=== PATIENT | male | born 1970 | race Caucasian/White ===

== ENCOUNTER → 2022-02-01 09:57 | Outpatient (BNVA) | payer OTHER, SELFPAY | PROVIDERS: PCP Nurse Practitioner Family; Referring Provider Physician Assistant; Visit Provider Physician Assistant | DX: Z01.818 Encounter for other preprocedural examination (principal); K21.9 Gastro-esophageal reflux disease without esophagitis; K64.9 Unspecified hemorrhoids | CPT/HCPCS: 99202 ==

== ENCOUNTER 2022-02-15 13:25 | Outpatient (REF) | payer OTHER, SELFPAY ==
[2022-02-15 13:35] LABS: MANUAL DIFF FLAG NO
[2022-02-15 14:47] LABS: Basophils Percent Auto 0.5 % (0-2); Eosinophils Absolute Auto 0.1 X10*3/uL (0.0-0.4); Eosinophils Percent Auto 0.8 % (0-4); Hematocrit 43.4 % (42.0-52.0); Hemoglobin 14.5 g/dl (14.0-18.0); Imm Gran Abs Auto 0.02 X10*3/uL (0.00-0.03); Imm Gran Pct Auto 0.3 % (0.0-0.4); Lymphocytes Absolute Auto 2.1 X10*3/uL (1.2-4.9); Lymphocytes Percent Auto 34.3 % (20-40); Mean Corpuscular HGB Conc 33.4 g/dl (31.0-36.0); Mean Corpuscular Hemoglobin 30.2 pg (27.0-33.0); Mean Corpuscular Volume 90.4 fL (80.0-98.0); Mean Platelet Volume 11.5 fL (9.4-12.4); Monocytes Absolute Auto 0.7 X10*3/uL (0.1-1.2); Monocytes Percent Auto 11.5 % (2-11); Neutrophils Absolute Auto 3.1 x10*3/uL (2.0-8.3); Neutrophils Percent Auto 52.6 % (45-73); Platelet Count 343 X10*3/uL (160-400)
[2022-02-15 15:05] LABS: Alanine Aminotransferase 28 U/L (0-40); Albumin Level 4.6 g/dL (3.5-5.0); Alkaline Phosphatase 83 U/L (39-117); Anion Gap 16 (12-20); Aspartate Amino Transferase 19 U/L (5-37); Bilirubin Total 0.7 mg/dL (0.0-1.0); Blood Urea Nitrogen 15 mg/dL (9-16); Calcium 9.9 mg/dL (8.4-10.2); Carbon Dioxide 25 mmol/L (22-29); Chloride 103 mmol/L (96-108); Cholesterol 284 mg/dL; Estimated Glomerular Filt Rate > 60; Glucose Fasting 115 mg/dL (60-99); HDL Cholesterol 52 mg/dL; LDL Cholesterol Calculated 196 mg/dl; Potassium 4.4 mmol/L (3.3-5.1); Sodium 140 mmol/L (135-145); Total Protein 7.5 g/dL (6.5-8.0); Triglycerides 183 mg/dL
[2022-02-15 15:26] LABS: Prostate Specific Antigen 0.36 ng/mL (<0.05-4.0); TSH reflex Free T4 1.77 uIU/mL (0.32-4.0)
[2022-02-15 15:40] LABS: Folate > 20.0 ng/mL (> or = 4.0); Vitamin B12 225 pg/mL (200-900)
== END 2022-02-15 13:26 | disposition home or self-care (01) ==
LOC: HO.LAB 13:25
PROVIDERS: PCP Nurse Practitioner Family; Visit Provider Nurse Practitioner Family
DX: Z12.5 Encounter for screening for malignant neoplasm of prostate (principal); Z76.89 Persons encountering health services in other specified circumstances
CPT/HCPCS: 36415; 80053; 80061; 82306; 82607; 82746; 84153; 84443; 85025

== ENCOUNTER 2022-05-30 10:03 | Outpatient (REF) | payer OTHER, SELFPAY ==
[2022-05-30 11:14] LABS: Alanine Aminotransferase 36 U/L (0-40); Albumin Level 4.2 g/dL (3.5-5.0); Alkaline Phosphatase 85 U/L (39-117); Anion Gap 12 (12-20); Aspartate Amino Transferase 22 U/L (5-37); Bilirubin Total 0.5 mg/dL (0.0-1.0); Blood Urea Nitrogen 13 mg/dL (9-16); Calcium 9.5 mg/dL (8.4-10.2); Carbon Dioxide 24 mmol/L (22-29); Chloride 106 mmol/L (96-108); Cholesterol 271 mg/dL; Estimated Average Glucose 137 mg/dL; Estimated Glomerular Filt Rate > 60; Glucose Random 149 mg/dL (60-115); HDL Cholesterol 38 mg/dL; Hemoglobin A1c % 6.4 %; LDL Cholesterol Calculated 179 mg/dl; Potassium 4.3 mmol/L (3.3-5.1); Sodium 138 mmol/L (135-145); Total Protein 7.1 g/dL (6.5-8.0); Triglycerides 274 mg/dL
[2022-05-30 11:35] LABS: Vitamin D 25-OH Total 23.8 ng/mL (>30)
== END 2022-05-30 10:04 | disposition home or self-care (01) ==
LOC: HO.LAB 10:03
PROVIDERS: PCP Nurse Practitioner Family; Visit Provider Nurse Practitioner Family
DX: R73.01 Impaired fasting glucose (principal); E78.5 Hyperlipidemia, unspecified; R79.89 Other specified abnormal findings of blood chemistry
CPT/HCPCS: 36415; 80053; 80061; 82306; 83036

== ENCOUNTER 2022-08-03 07:38 | Day surgery (SDC) | payer OTHER, SELFPAY ==
[2022-07-31 14:13] VITALS: BMI 35.7
--- NOTE | 2022-08-02 13:42 | HO.ANESPROP2 ---
Documented by User: Becca Dela Cruz NP 08/02/22 13:43 HPI - Anesthesia Eval Consult details Narrative: 52yo M for Upper Endoscopy and Colonoscopy PMF Active Problems Active Problems: All Active Problems (Updated 07/31/22 @ 14:09 by Sary Reyes RN) ADHD (Acute) PTSD (post-traumatic stress disorder) (Acute) Bipolar disorder (Acute) Anxiety (Acute) Panic attacks (Acute) Seasonal allergies (Acute) GERD (gastroesophageal reflux disease) (Acute) Screening for colon cancer (Acute) Screening for prostate cancer (Acute) Depression (Acute) Hemorrhoids (Acute) Hyperlipidemia (Acute) Low vitamin D level (Acute) Adult general medical exam (Acute) Obesity (BMI 30-39.9) (Acute) Hypertension (Acute) Pre-diabetes (Acute) Past Medical History Medical History ADHD Anxiety Bipolar disorder Depression Elevated blood pressure reading Elevated cholesterol Elevated fasting glucose Encounter to establish care GERD (gastroesophageal reflux disease) HTN (hypertension) Panic attacks Post traumatic stress disorder (PTSD) Pre-diabetes Family History Family History Mother Diabetes Father Medical history unknown Surgical History Surgical History H/O abdominal surgery H/O splenectomy History of colonoscopy Social History Social History (Updated 08/03/22 @ 08:44 by Aniya Ernandez MD) Household Members Other:: has a GF Housing: Apartment Patient Tobacco Use Status: Former Tobacco user Tobacco use type: Cigarette e-Cigarette/Vaping Use: Never Used Use of substances other than those prescribed or required for medical reasons: Yes Substance Use Type: Marijuana Last Used Substance: Days (ago) Are you DNR?: No Advance Directives: No Advance Directives Information Provided: Yes Recently lost weight without trying: No Nutrition Risks: No Nutritional Risk service: No Current occupational status: employed and unemployed Cognitive needs: No Hearing needs: No Vision needs: No Meds Allergies Allergy/AdvReac Type Severity Reaction Status Date / Time acetaminophen [Tylenol] Allergy Severe anaphylaxis Verified 07/31/22 14:09 Seasonal Allergies Allergy Severe Itchy Eyes Verified 06/13/22 10:37 Home Medications Medication Instructions Recorded Confirmed Last Taken Type clonazepam 1 mg tablet (Klonopin) 1 mg PO TID PRN Anxiety 12/22/21 07/31/22 Unknown History dextroamphetamine-amphetamine ER 10 mg PO DAILY 12/22/21 07/31/22 Unknown History 10 mg 24hr capsule,extend release (Adderall XR) dextroamphetamine-amphetamine ER 30 mg PO DAILY 12/22/21 07/31/22 Unknown History 30 mg 24hr capsule,extend release (Adderall XR) gabapentin 800 mg tablet 800 mg PO QID 12/22/21 07/31/22 Unknown History oxcarbazepine 600 mg tablet 600 mg PO QID 12/22/21 07/31/22 Unknown History (Trileptal) mirtazapine 45 mg tablet 45 mg PO BEDTIME 02/01/22 07/31/22 Unknown History lurasidone 20 mg tablet (Latuda) 20 mg PO BEDTIME 05/30/22 07/31/22 Unknown History Exam Exam Date and Time: August 02, 2022 1342 Height,Weight and Vital Signs: Height 5 ft 11 in Weight 116.176 kg Pertinent Lab Results Pertinent Lab Results: Laboratory Tests 02/15/22 05/30/22 13:34 10:21 WBC 6.0 Hgb 14.5 Hct 43.4 Plt Count 343 Sodium 138 Potassium 4.3 Chloride 106 Carbon Dioxide 24 BUN 13 Creatinine 0.82 Assessment and Plan Assessment Anesthesia Assessment: Chart Reviewed Documented by User: Aniya Ernandez MD 08/03/22 09:12 [facility] Active Problems Active Problems: All Active Problems (Updated 08/03/22 @ 14:09 by Aniya Ernandez MD) ADHD (Acute) PTSD (post-traumatic stress disorder) (Acute) Bipolar disorder (Acute) Anxiety (Acute) Panic attacks (Acute) Seasonal allergies (Acute) GERD (gastroesophageal reflux disease) (Acute) Screening for colon cancer (Acute) Screening for prostate cancer (Acute) Depression (Acute) Hemorrhoids (Acute) Hyperlipidemia (Acute) Low vitamin D level (Acute) Adult general medical exam (Acute) Obesity (BMI 30-39.9) (Acute) Hypertension (Acute) Pre-diabetes (Acute) Denies LACEY Past Medical History Medical History ADHD Anxiety Bipolar disorder Depression Elevated blood pressure reading Elevated cholesterol Elevated fasting glucose Encounter to establish care GERD (gastroesophageal reflux disease) HTN (hypertension) Panic attacks Post traumatic stress disorder (PTSD) Pre-diabetes Family History Family History Mother Diabetes Father Medical history unknown Family history of problems with anesthesia: No Surgical History Surgical History H/O abdominal surgery H/O splenectomy History of colonoscopy History of Problems with Anesthesia: No Social History Social History (Updated 08/03/22 @ 08:44 by Aniya Ernandez MD) Household Members Other:: has a GF Housing: Apartment Patient Tobacco Use Status: Former Tobacco user Tobacco use type: Cigarette e-Cigarette/Vaping Use: Never Used Use of substances other than those prescribed or required for medical reasons: Yes Substance Use Type: Marijuana Last Used Substance: Days (ago) Are you DNR?: No Advance Directives: No Advance Directives Information Provided: Yes Recently lost weight without trying: No Nutrition Risks: No Nutritional Risk service: No Current occupational status: employed and unemployed Cognitive needs: No Hearing needs: No Vision needs: No Meds Allergies Allergy/AdvReac Type Severity Reaction Status Date / Time acetaminophen [Tylenol] Allergy Severe anaphylaxis Verified 07/31/22 14:09 Seasonal Allergies Allergy Severe Itchy Eyes Verified 06/13/22 10:37 Home Medications Medication Instructions Recorded Confirmed Last Taken Type clonazepam 1 mg tablet (Klonopin) 1 mg PO TID PRN Anxiety 12/22/21 07/31/22 Unknown History dextroamphetamine-amphetamine ER 10 mg PO DAILY 12/22/21 07/31/22 Unknown History 10 mg 24hr capsule,extend release (Adderall XR) dextroamphetamine-amphetamine ER 30 mg PO DAILY 12/22/21 07/31/22 Unknown History 30 mg 24hr capsule,extend release (Adderall XR) gabapentin 800 mg tablet 800 mg PO QID 12/22/21 07/31/22 Unknown History oxcarbazepine 600 mg tablet 600 mg PO QID 12/22/21 07/31/22 Unknown History (Trileptal) mirtazapine 45 mg tablet 45 mg PO BEDTIME 02/01/22 07/31/22 Unknown History lurasidone 20 mg tablet (Latuda) 20 mg PO BEDTIME 05/30/22 07/31/22 Unknown History Exam Height,Weight and Vital Signs: Height 5 ft 11 in Weight 116.176 kg Vital Signs Temp Pulse Resp BP Pulse Ox O2 Del Method 08/03/22 08:13 96.9 F 83 16 139/98 H 95 Room Air Airway Mallampati Class: II TM Dist: >3cm Neck ROM: Full Loose/Missing/Broken Teeth: Yes (Molars extracted. Denies loose or broken teeth) Heart: RRR Lungs: CTAB Assessment and Plan Assessment Anesthesia Assessment: Anesthesia Plan Discussed Final Anesthetic Review Family History of Problems with Anesthesia: No History of Problems with Anesthesia: No NPO: Yes ASA Class: II Final Preanesthetic Review: No Changes in Pt Med Stat, Meds/Allgs Chart Reviewed, Consent Obtained/Reviewed and Anes Risks/Benef Reviewed Patient Risk: Low Procedure Risk: Low Assessment/Block/Sedation in SS: Assess/Block/Sedation-SS Anesthetic Plan Anesthetic Plan: MAC: Disposition: Standard PACU
[2022-08-03 08:01] VITALS: BMI 35.5
[2022-08-03 08:13] VITALS: BP 139/98; PULSE 83; RESP 16; TEMP 36.1; O2SAT 95
--- NOTE | 2022-08-03 08:14 | P.HPSUR_ITS ---
Pre-Procedural Eval Section A Date of Service: 08/03/22 Section B Chief Complaint: hemorrhoids,screening,reflux disease Relevant Family History (Specify if Yes): No Relevant Social History: None Present Medications: see Short Stay Collaborative assessment Medical History: Significant History (GERD, hemorrhoid) History of Previous Operations: Relevant previous surgery/procedure and date(s) (H/O abdominal surgery H/O splenectomy History of colonoscopy) Allergies: Allergies Allergy/AdvReac Type Severity Reaction Status Date / Time acetaminophen [Tylenol] Allergy Severe anaphylaxis Verified 07/31/22 14:09 Seasonal Allergies Allergy Severe Itchy Eyes Verified 06/13/22 10:37 Review of Systems Sugical H&P ROS: Negative: Constitution, Cardiovascular, Respiratory, Neurological, Psychiatric, Hem-Onc, Allergic/Immunologic, Gastrointestinal, Genitourinary, Musculoskeletal, Integumentary, Endocrine and Eyes/Ears/Nose/Throat Exam Surgical H&P Exam: Normal: HEENT, Normal: Heart, Normal: Lungs, Normal: Extremit ies, Normal: Abdomen, Normal: Skin and Normal: Neurological Plan Diagnosis/Plan: Unchanged I have reviewed the history and physical and performed a pertinent physical examination on my patient. No changes have occurred unless specified. Time Spent With Patient Time: Total time managing care of this patient today ____ minutes.
--- NOTE | 2022-08-03 08:15 | W.PM.OPN ---
Operative Note Operative Note Date of Service: 08/03/22 Narrative: Operative Information Procedure Description: EGD, Colonoscopy Indication: GERD, screening Anesthesia: MAC FLEXIBLE TRANSORAL UPPER GASTROINTESTINAL ENDOSCOPY AND COLONOSCOPY PROCEDURE NOTE UPPER ENDOSCOPY Consent: Indications for the procedure and potential complications of bleeding, perforation, reaction to medications and missed diagnosis were discussed with the patient and informed consent was obtained. Instrument: Olympus GIF H 190 J mid size upper endoscope Monitoring: Vital signs and clinical assessment, continuous EKG monitoring, Pulse oximetry, Carbon Dioxide monitoring and blood pressure monitoring were done throughout the procedure. Procedure: The patient was placed in the left lateral decubitis position and pre-procedure medications were administered and a bite block was placed. The endoscope was inserted into the mouth and advanced under direct vision to the third part of duodenum. A careful inspection was made as the upper endoscope was withdrawn including a retroflexed examination of the proximal stomach; Findings and interventions are described below. Findings: Larynx:normal Esophagus: GE junction at 36 cm, diaphragm hiatus at 41 cm, consistent with 5 cm hiatal hernia, lorie erosions noted in sac Stomach: Patchy erythema . Biopsies were obtained. Grade 2 flap valve on retroflexed examination of the cardia. Duodenum: Normal bulb and descending duodenum, Intervention: Biopsies as noted above COLONOSCOPY Instrument: Olympus variable stiffness pediatric scope 190L Colonoscopy Monitoring: Vital signs and clinical assessment, continuous EKG monitoring, Pulse oximetry, Carbon Dioxide monitoring and blood pressure monitoring were done throughout the procedure. Colon withdrawal time was 17 minutes. Procedure: The patient was placed in the left lateral decubitis position and pre-procedure medications were administered. After a digital rectal examination of the ano-rectum, the video colonoscope was inserted into the rectum and advanced through the colon to the cecum/TI. The colonoscope was slowly withdrawn in a retrograde panoramic fashion and the colon mucosa was carefully examined including a retroflexed view of the rectum. Findings and interventions are described below. Procedure Difficulty:moderate due to looping Findings: Terminal Ileum-normal Cecum:normal Ascending Colon: normal Transverse Colon -normal Descending Colon:normal Sigmoid Colon: normal Rectum: Retroflexion with medium sized internal hemorrhoids, grade I, 7-8 mm sessile polyp removed with cold snare Anorectum - normal Colon preparation: [place] Bowel Preparation Scale Right colon; 2 Transverse colon: 2 Left colon; 2 (0 = Unprepared colon segment with mucosa not seen due to solid stool that cannot be cleared. 1 = Portion of mucosa of the colon segment seen, but other areas of the colon segment not well seen due to staining, residual stool and/or opaque liquid. 2 = Minor amount of residual staining, small fragments of stool and/or opaque liquid, but mucosa of colon segment seen well. 3 = Entire mucosa of colon segment seen well with no residual staining, small fragments of stool or opaque liquid) Impression and Post Procedure Diagnosis: Endoscopy Findings: hiatal hernia lorie erosions Colonoscopy Findings: polyp internal hemorrhoids Plan: Await Pathology results Repeat Colonoscopy in 5 years due to colon polyp or earlier if clinically indicated High fiber diet leaflet avoid straining at stool, epsom salts and sitz bath, anusol supps or cream GERd precautions, consider surgical repair of hernia and increasing dose of PPI Above findings were reviewed with the patient and relevant handouts were provided if indicated.
[2022-08-03] MEDS: Lactated Ringers 1,000 ML 100 ML IVCONT (08:31)
[2022-08-03 10:01] VITALS: BP 117/85; PULSE 80; RESP 18; TEMP 36.4; O2SAT 93
[2022-08-03 10:16] VITALS: BP 111/83; PULSE 79; RESP 18; TEMP 37.3; O2SAT 94
== END 2022-08-03 11:01 | disposition home or self-care (01) ==
PROVIDERS: PCP Nurse Practitioner Family; Visit Provider Internal Medicine Gastroenterology
PROC: (CPT 45385; principal; 2022-08-03 08:50)
DX: Z12.11 Encounter for screening for malignant neoplasm of colon (principal); D12.8 Benign neoplasm of rectum; K64.0 First degree hemorrhoids; K21.9 Gastro-esophageal reflux disease without esophagitis; K25.9 Gastric ulcer, unspecified as acute or chronic, without hemorrhage or perforation; K44.9 Diaphragmatic hernia without obstruction or gangrene; I10 Essential (primary) hypertension; E78.5 Hyperlipidemia, unspecified; R73.03 Prediabetes; F31.9 Bipolar disorder, unspecified; F43.11 Post-traumatic stress disorder, acute; J30.2 Other seasonal allergic rhinitis; Z79.899 Other long term (current) drug therapy; Z88.8 Allergy status to other drugs, medicaments and biological substances; Z90.81 Acquired absence of spleen; Z98.890 Other specified postprocedural states; Z87.891 Personal history of nicotine dependence
CPT/HCPCS: 45385; 43239; 88305; 88342; J2250

== ENCOUNTER → 2022-09-08 08:13 | Outpatient (BNVA) | payer OTHER, SELFPAY | PROVIDERS: PCP Nurse Practitioner Family; Visit Provider Surgery ==

== ENCOUNTER 2022-10-25 13:17 | Outpatient (REF) | payer OTHER, SELFPAY ==
--- NOTE | ~2022-10-25 | CT_ITS ---
EXAMINATION: CT ABDOMEN AND PELVIS WITHOUT CONTRAST CLINICAL INFORMATION: Diaphragmatic hernia without obstruction COMPARISON: None available. TECHNIQUE: Multidetector volumetric imaging was performed from the superior aspect of the liver through the pubic symphysis. Sagittal and coronal reformatted images were obtained on the technologist's workstation. This CT examination was performed using dose optimization techniques as appropriate, variously including the following: *Automated exposure control *Adjustment of mA and/or kV according to patient size (this includes techniques or standardized protocols for targeted exams where dose is matched to indication/reason for exam; i.e. extremities or head) *Use of iterative reconstruction technique DLP: 768 mGy-cm FINDINGS: LUNG BASES: The visualized lung bases are unremarkable. LIVER, GALLBLADDER, AND BILIARY TREE: Fatty liver.. No focal hepatic lesion or biliary ductal dilatation is present. The gallbladder is unremarkable with no evidence of radiopaque gallstones, gallbladder wall thickening, or obvious pericholecystic inflammatory changes. PANCREAS: Unremarkable. SPLEEN: Unremarkable. ADRENAL GLANDS: Unremarkable. KIDNEYS AND URETERS: The kidneys are normal in size, shape, and attenuation. No hydronephrosis, hydroureter, or calculi seen. No perinephric stranding. BLADDER: Unremarkable. GASTROINTESTINAL TRACT: There is a small hiatal hernia. Question of focal wall thickening of the posterior proximal stomach/fundus for example axial image 23, coronal reconstructed image 100 and sagittal reconstructed image 71. The small and large bowel are unremarkable. The appendix is not seen. ABDOMINAL WALL: No significant hernia is appreciated. Small right inguinal hernia containing fat. Left inguinal bulge. LYMPH NODES: Normal. VASCULAR: Unremarkable. PELVIC VISCERA: Unremarkable. OSSEOUS STRUCTURES: Degenerative changes of the spine. CT/CT abdomen pelvis wo IV con IMPRESSION: Small hiatal hernia. Question focal wall thickening of the posterior proximal stomach. Fatty liver. Fleischner guidelines were followed.
[2022-10-25] MEDS: Barium Sulfate Oral (Mocha) 450 ML ORAL.SUSP 900 ML PO (15:35)
== END 2022-10-25 13:18 | disposition home or self-care (01) ==
LOC: HO.CT 13:17
PROVIDERS: Visit Provider Surgery
DX: K44.9 Diaphragmatic hernia without obstruction or gangrene (principal); K21.9 Gastro-esophageal reflux disease without esophagitis
CPT/HCPCS: 74176

== ENCOUNTER 2022-12-25 10:21 | Outpatient (REF) | payer OTHER, SELFPAY ==
--- NOTE | ~2022-12-25 | FL_ITS ---
EXAMINATION: XR GI SERIES CLINICAL INFORMATION: Heartburn and stomach pain with severe vomiting. COMPARISON: None available. TECHNIQUE: Routine upper GI air-contrast study was performed. FINDINGS: Following oral administration of thick barium and effervescent granules there is prominent cricoesophageal sphincter and some small anterior esophageal web in the pharynx. Normal caliber thoracic esophagus is noted without any intrinsic lesion, narrowing, stricture or extrinsic compression. On placing patient supine and prone lying the there is a small hiatal hernia with moderate gastroesophageal reflux. The rest of the stomach, duodenal bulb and sweep appears normal in its course and caliber. The mucosal pattern of esophagus, stomach and the duodenum is normal. FLUOROSCOPY TIME: 1.5 minutes DOSE AREA PRODUCT: 31.278 uGy-m2 (microgray-meter squared) FL/FL upper GI series IMPRESSION: 1. Small hiatal hernia with moderate gastroesophageal reflux. 2. 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
== END 2022-12-25 10:22 | disposition home or self-care (01) ==
LOC: HO.XRAY 10:21
PROVIDERS: PCP Nurse Practitioner Family; Visit Provider Surgery
DX: K44.9 Diaphragmatic hernia without obstruction or gangrene (principal); K21.9 Gastro-esophageal reflux disease without esophagitis
CPT/HCPCS: 74240

== ENCOUNTER → 2022-12-25 10:23 | Outpatient (BNV) | payer OTHER, SELFPAY | PROVIDERS: PCP Nurse Practitioner Family; Visit Provider Radiology Diagnostic Radiology | DX: K21.9 Gastro-esophageal reflux disease without esophagitis (principal) | CPT/HCPCS: 74246 ==

== ENCOUNTER 2023-02-20 16:08 | Outpatient (AMB) | payer OTHER, SELFPAY ==
--- NOTE | 2023-02-20 16:23 | A.OFFPC_ITS ---
Vital Signs 02/20/23 16:25 02/20/23 17:00 Height 5 ft 11 in Weight 256 lb 0.6 oz BMI 35.7 BP 118/92 H 134/98 H Blood Pressure Location Lt brachial Lt brachial Position Sitting Sitting Pulse 80 Pulse Source Pulse Oximeter Temp Source Skin Oxygen Delivery Method Room Air Intake Visit Reasons: PE Intake Note: Patient is here today for a physical. 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 Allergies acetaminophen [Tylenol] Allergy (Severe, Verified 02/20/23 16:50) anaphylaxis Seasonal Allergies Allergy (Severe, Verified 02/20/23 16:50) Itchy Eyes Medication List - Last Reconciled 02/20/23 by TC Cast blood pressure monitor As directed cetirizine (Zyrtec) 10 mg PO DAILY PRN clonazepam (Klonopin) 1 mg PO TID PRN dextroamphetamine-amphetamine 10 mg ER (Adderall XR) 10 mg PO DAILY dextroamphetamine-amphetamine 30 mg ER (Adderall XR) 30 mg PO DAILY gabapentin 800 mg PO QID lisinopril 5 mg PO DAILY lurasidone (Latuda) 20 mg PO BEDTIME methylcellulose (laxative) (Citrucel) 500 mg PO BID mirtazapine 45 mg PO BEDTIME omeprazole 40 mg PO DAILY Tobacco use date assessed: 02/20/23 Dental Screening Dental Screen Date: 02/20/23 Did you have a dental visit in the last 12 months?: No Did you have a dental problem in the last 6 months where you did not have access to dental care?: No HPI PE HPI Details Patient is a 53-year-old male presents today for physical exam. Medical history significant for depression, GERD, obesity, seasonal allergies, panic attacks, anxiety, bipolar disorder, PTSD, ADHD, diaphragmatic hernia - will follow-up on bariatric surgery referral-patient reports that he will need to have surgery. Dentist overdue, patient is to call for an appointment. Patient was encouraged to complete his blood work that was ordered in the past. Patient denies problems with his eyes so he does not see eye doctor. Patient reports that he quit smoking about 13 years ago, will refer for low-dose chest CT scan. Patient denies shortness of breath or chest pain. [facility] Medical History (Updated 02/20/23 @ 17:02 by TC Cast) Diaphragmatic hernia ADHD Post traumatic stress disorder (PTSD) Bipolar disorder Anxiety Panic attacks GERD (gastroesophageal reflux disease) Depression Elevated cholesterol HTN (hypertension) Pre-diabetes Elevated blood pressure reading Elevated fasting glucose Encounter to establish care Surgical History (Updated 02/20/23 @ 18:01 by TC Cast) History of esophagogastroduodenoscopy (EGD) History of colonoscopy H/O splenectomy H/O abdominal surgery Family History Mother Diabetes Father Medical history unknown Social History Household Members Other:: has a GF Housing: Apartment Patient Tobacco Use Status: Former Tobacco user Tobacco use type: Cigarette e-Cigarette/Vaping Use: Never Used Substance Use Type: Marijuana service: No Current occupational status: employed and unemployed Cognitive needs: No Hearing needs: No Vision needs: No Questionnaire PHQ-9 Over the last 2 weeks, how often have you been bothered by any of the following problems? 1. Little interest or pleasure in doing things: more than half the days 2. Feeling down, depressed, or hopeless: more than half the days 3. Trouble falling or staying asleep, or sleeping too much: more than half the days (falling asleep ) 4. Feeling tired or having little energy: more than half the days 5. Poor appetite or overeating: not at all 6. Feeling bad about yourself - or that you are a failure or have let yourself or your family down: not at all 7. Trouble concentrating on things, such as reading the newspaper or watching television: more than half the days 8. Moving or speaking so slowly that other people could have noticed. Or the opposite - being so fidgety or restless that you have been moving around a lot more than usual: several days 9. Thoughts that you would be better off or of hurting yourself in some way: not at all Total score: 11 Depression Screening Interpretation: Positive Depression Screening Follow-up: In treatment 49646 - PHQ-9 Billing: Yes Source: Developed by Drs. Aristeo Alejandro, Eliana Lowe, Kailash Lorenzo and colleagues, with an educational devin from [employer]. Thrive Questionnaire Date Thrive assessed: 05/30/22 AUDIT C Alcohol Use Questionnaire (AUDIT-C) 1. How often do you have a drink containing alcohol?: Never 3. How often do you have six or more drinks on one occasion?: Never Total Score: 0 Score Reviewed/Action Taken: No HIRA-7 AMB Questionnaire HIRA-7 Date HIRA - 7 assessed: 02/20/23 Feeling nervous, anxious, or on edge: 0 = Not at all Not being able to stop or control worryin = Not at all Worrying too much about different things: 0 = Not at all Trouble relaxin = Not at all Being so restless that it is hard to sit still: 0 = Not at all Becoming easily annoyed or irritable: 0 = Not at all Feeling afraid as if something awful might happen: 0 = Not at all Total HIRA-7 score (0-4 normal; 5-9 mild; 10-14 moderate; 15-21 severe): 0 Source: Developed by Drs. Aristeo Alejandro, Eliana Lowe, Kailash Lorenzo and colleagues, with an educational devin from [employer]. HIRA-7 Assessment Billing HIRA-7 Assessment Tool: HIRA-7 Assessment 07164 Review of Systems Const Denies body aches, Denies chills, Denies fever(s) and Denies headache(s) Eyes Denies change in vision ENT Denies dizziness, Denies otalgia, Denies headache(s), Denies nasal discharge, Denies sinus pain and Denies sore throat Card Denies chest pain, Denies edema, Denies lightheadedness and Denies dyspnea Resp Denies chest congestion, Denies cough and Denies dyspnea GI Denies abdominal pain, Denies constipation, Denies diarrhea, Denies nausea and Denies vomiting Denies difficulty urinating and Denies dysuria Musc Denies myalgias Skin/Breast Denies lesions and Denies rash Neuro Denies dizziness and Denies headache(s) Physical exam (Primary Care) Vital Signs: Last Vital Signs Pulse 80 02/20/23 16:25 BP 134/98 H 02/20/23 17:00 Oxygen Delivery Method Room Air 02/20/23 16:25 BMI result Body Mass Index 35.7 Tobacco/Smoking Status: Tobacco use Status Tobacco use date assessed 02/20/23 02/20/23 16:26 Patient Tobacco Use Status Former Tobacco user 02/20/23 16:26 Tobacco use type Cigarette 02/20/23 16:26 e-Cigarette/Vaping Use Never Used 02/20/23 16:26 PHQ-9: PHQ-9 Score PHQ-9: Total score 11 02/20/23 16:52 Depression Screening Interpretation: Positive Depression Screening Follow-up: In treatment Thrive Assessment: Date of Thrive Assessment Date Thrive assessed 05/30/22 02/20/23 16:26 Const General: cooperative and no acute distress Orientation/consciousness: patient oriented x3 HENMT Head: Yes normocephalic and Yes atraumatic Face and sinus: Yes sinuses nontender Mouth: oropharynx normal and moist mucous membranes Throat: Yes posterior oropharynx normal Eyes General: appearance normal, both eyes and all related structures Pupils: Equal, round and reactive pupils present EOM: EOMs intact bilaterally Neck Neck: Yes normal visual inspection, Yes full ROM and Yes no lymphadenopathy Thyroid: Thyroid normal Resp Effort & Inspection: normal respiratory effort and able to speak in complete sentences Auscultation: clear to auscultation bilaterally, no crackles, no rales, no rhonchi and no wheezes Cardio Rate: regular rate Rhythm: regular rhythm Heart sounds: S1 normal heart sound present, S2 normal heart sound present and no murmurs GI Palpation (GI): Soft to palpation, not firm, nontender, no guarding, not rigid and no hepatosplenomegaly Auscultation: normal bowel sounds Skin General skin exam: no rashes or lesions noted Neuro General: patient oriented x3 Cranial nerves: Yes Equal, round and reactive pupils present Gait exam (Neuro): Normal gait present Extrem General: Yes full ROM and No edema Assessment and Plan Assessment & Plan (1) Obesity (BMI 30-39.9): Code(s): E66.9 - Obesity, unspecified Plan: Healthy food choices and exercise as tolerated (2) Hypertension: Code(s): I10 - Essential (primary) hypertension Plan: Goal BP equal or less than 140/90 - blood pressure appears elevated in the office today - patient denies acute symptoms Increase lisinopril to 10 mg daily Low-sodium diet and weight loss Signs and symptoms reviewed when to notify provider or go to the emergency department Patient is to monitor blood pressures at home Follow-up with nurse in 2 weeks for BP recheck (3) GERD (gastroesophageal reflux disease): Code(s): K21.9 - Gastro-esophageal reflux disease without esophagitis Plan: Continue omeprazole 40 mg daily Avoid GERD trigger foods Do not lay down 2-3 hours after evening meal (4) Seasonal allergies: Code(s): J30.2 - Other seasonal allergic rhinitis Plan: Continue Zyrtec 10 mg daily as needed (5) Anxiety: Code(s): F41.9 - Anxiety disorder, unspecified Plan: Continue to follow-up with psychiatrist Dr. Miramontes and therapist at [facility] Mental health medications are prescribed by psychiatrist (6) Bipolar disorder: Code(s): F31.9 - Bipolar disorder, unspecified Plan: Continue to follow-up with psychiatrist Dr. Miramontes and therapist at [facility] Mental health medications are prescribed by psychiatrist (7) ADHD: Code(s): F90.9 - Attention-deficit hyperactivity disorder, unspecified type Plan: Continue to follow-up with psychiatrist Dr. Miramontes and therapist at [facility] Mental health medications are prescribed by psychiatrist (8) Depression: Code(s): F32.A - Depression, unspecified Qualifiers: Depression Type: other depression Qualified Code(s): F32.89 - Other specified depressive episodes Plan: Continue to follow-up with psychiatrist Dr. Miramontes and therapist at [facility] Mental health medications are prescribed by psychiatrist (9) Hyperlipidemia: Code(s): E78.5 - Hyperlipidemia, unspecified Plan: LDL 179 05/2022 Continue pravastatin 10 mg at bedtime Low-cholesterol diet Patient was encouraged to complete his blood work (10) History of nicotine dependence: Code(s): Z87.891 - Personal history of nicotine dependence Plan: Will refer for low-dose chest CT scan (11) Diaphragmatic hernia: Code(s): K44.9 - Diaphragmatic hernia without obstruction or gangrene Plan: Patient reports that he will need to have surgery, will follow-up on bariatric surgery referral (12) Screening for prostate cancer: Code(s): Z12.5 - Encounter for screening for malignant neoplasm of prostate (13) Adult general medical exam: Code(s): Z00.00 - Encounter for general adult medical examination without abnormal findings Plan Follow-up in 4 months or sooner as needed Orders: Orders Prostate Specific Antigen Today Z12.5 - Encounter for screening for malignant neoplasm of prostate Referrals Thoracic Surgery Referral Z87.891 - Personal history of nicotine dependence Medications: New lisinopril 10 mg PO DAILY 30 tabs 3RF I10 - Essential (primary) hypertension Refilled pravastatin 10 mg PO BEDTIME 90 tabs 0RF E78.5 - Hyperlipidemia, unspecified blood pressure monitor As directed 1 ea 0RF R03.0 - Elevated blood-pressure reading, without diagnosis of hypertension Discontinued lisinopril Discontinued Reason: Doctor's Order 5 mg PO DAILY 90 tabs 3RF I10 - Essential (primary) hypertension Coding Level of Care Code Est Pt Prev Care 40-64y(30530) Diagnoses Obesity (BMI 30-39.9) E66.9 Hypertension I10 GERD (gastroesophageal reflux disease) K21.9 Seasonal allergies J30.2 Anxiety F41.9 Bipolar disorder F31.9 ADHD F90.9 Other depression F32.89 Depression Type: other depression Hyperlipidemia E78.5 History of nicotine dependence Z87.891 Diaphragmatic hernia K44.9 Screening for prostate cancer Z12.5 Adult general medical exam Z00.00 Additional Codes HIRA-7 Assessment Billing - HIRA-7 Assessment Tool: HIRA-7 Assessment [id number] ([id number])
[2023-02-20 16:25] VITALS: BP 118/92; PULSE 80; BMI 35.7
[2023-02-20 17:00] VITALS: BP 134/98
== END 2023-02-20 17:04 | disposition home or self-care (01) ==
PROVIDERS: Visit Provider Nurse Practitioner Family
DX: Z00.00 Encounter for general adult medical examination without abnormal findings (principal); I10 Essential (primary) hypertension; K21.9 Gastro-esophageal reflux disease without esophagitis; F41.9 Anxiety disorder, unspecified; F31.9 Bipolar disorder, unspecified; Z68.35 Body mass index [BMI] 35.0-35.9, adult; Z87.891 Personal history of nicotine dependence; F90.9 Attention-deficit hyperactivity disorder, unspecified type; J30.2 Other seasonal allergic rhinitis; E66.9 Obesity, unspecified; F32.89 Other specified depressive episodes; E78.5 Hyperlipidemia, unspecified
CPT/HCPCS: 99396

== ENCOUNTER 2023-03-06 12:56 | Outpatient (AMB) | payer OTHER, SELFPAY ==
[2023-03-06 13:07] VITALS: BP 142/110; PULSE 70; O2SAT 96; BMI 35.6
--- NOTE | 2023-03-06 13:07 | MHC.PC.OV ---
Vital Signs 03/06/23 13:07 03/06/23 13:53 Height 5 ft 11 in Weight 255 lb BMI 35.6 BP 142/110 H 140/100 H Blood Pressure Location Lt brachial Lt brachial Position Sitting Sitting Pulse 70 Pulse Source Pulse Oximeter Temp Source Skin Pulse Oximetry (%) 96 Oxygen Delivery Method Room Air Intake Visit Reasons: bp Intake Note: pt states soreness on left shoulder and left arm with chest pain. 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: No Allergies acetaminophen [Tylenol] Allergy (Severe, Verified 03/06/23 13:22) anaphylaxis Seasonal Allergies Allergy (Severe, Verified 03/06/23 13:22) Itchy Eyes Medication List - Last Reconciled 03/06/23 by TC Cast blood pressure monitor As directed cetirizine (Zyrtec) 10 mg PO DAILY PRN clonazepam (Klonopin) 1 mg PO TID PRN dextroamphetamine-amphetamine 10 mg ER (Adderall XR) 10 mg PO DAILY dextroamphetamine-amphetamine 30 mg ER (Adderall XR) 30 mg PO DAILY gabapentin 800 mg PO QID lisinopril 10 mg PO DAILY lurasidone (Latuda) 20 mg PO BEDTIME methylcellulose (laxative) (Citrucel) 500 mg PO BID mirtazapine 45 mg PO BEDTIME omeprazole 40 mg PO DAILY pravastatin 10 mg PO BEDTIME Tobacco use date assessed: 03/06/23 Dental Screening Dental Screen Date: 03/06/23 Did you have a dental visit in the last 12 months?: Yes Did you have a dental problem in the last 6 months where you did not have access to dental care?: No Was dental information given to patient?: Patient has dentist HPI bp HPI Details Patient is a 53-year-old male who presents today for the same day visit due to elevated blood pressure and left-sided chest discomfort/tightness since this morning. Medical history significant for hypertension, obesity, hyperlipidemia, GERD, anxiety, panic attacks among others. Patient reports that he is compliant with medications. Reports he woke up this morning with fatigue and left shoulder and left chest discomfort. He reports left shoulder pain is worse with range of motion. Reports left chest discomfort slightly better than in the morning. Reports shortness of breath on exertion for the past couple weeks. No history of COPD or asthma. Systolic blood pressures at home ranging between 145 and 132. Diastolic blood pressures between 74 and 103. Reports also some headache today. Denies left shoulder injury. Reports kind of similar symptoms in the past with anxiety. [facility] Medical History Diaphragmatic hernia ADHD Post traumatic stress disorder (PTSD) Bipolar disorder Anxiety Panic attacks GERD (gastroesophageal reflux disease) Depression Elevated cholesterol HTN (hypertension) Pre-diabetes Elevated blood pressure reading Elevated fasting glucose Encounter to establish care Surgical History History of esophagogastroduodenoscopy (EGD) History of colonoscopy H/O splenectomy H/O abdominal surgery Family History Mother Diabetes Father Medical history unknown Social History Household Members Other:: has a GF Housing: Apartment Patient Tobacco Use Status: Former Tobacco user Tobacco use type: Cigarette e-Cigarette/Vaping Use: Never Used Substance Use Type: Marijuana service: No Current occupational status: employed and unemployed Cognitive needs: No Hearing needs: No Vision needs: No Questionnaire Thrive Questionnaire Date Thrive assessed: 05/30/22 AUDIT C Alcohol Use Questionnaire (AUDIT-C) 1. How often do you have a drink containing alcohol?: Never 3. How often do you have six or more drinks on one occasion?: Never Total Score: 0 Score Reviewed/Action Taken: No HIRA-7 AMB Questionnaire HIRA-7 Date HIRA - 7 assessed: 02/20/23 Source: Developed by Drs. Aristeo Alejandro, Eliana Lowe, Kailash Lorenzo and colleagues, with an educational devin from [employer]. Review of Systems Const Denies body aches, Denies chills, Reports fatigue, Denies fever(s) and Reports headache(s) Eyes Denies change in vision ENT Denies dizziness, Denies otalgia, Reports headache(s), Denies nasal discharge, Denies sinus pain and Denies sore throat Card Details: Left-sided chest discomfort Reports as per HPI, Denies chest pain, Reports chest pain with activity (Mild couple days ago when trying to reach for something ), Denies edema, Denies lightheadedness and Denies dyspnea Resp Denies chest congestion, Denies cough and Denies dyspnea GI Denies vomiting Denies dysuria Musc Denies myalgias Skin/Breast Denies lesions and Denies rash Neuro Denies dizziness and Reports headache(s) Endo Reports fatigue Physical exam (Primary Care) Vital Signs: Last Vital Signs Pulse 70 03/06/23 13:07 BP 140/100 H 03/06/23 13:53 Pulse Ox 96 03/06/23 13:07 Oxygen Delivery Method Room Air 03/06/23 13:07 BMI result Body Mass Index 35.6 Tobacco/Smoking Status: Tobacco use Status Tobacco use date assessed 03/06/23 03/06/23 13:08 Patient Tobacco Use Status Former Tobacco user 03/06/23 13:08 Tobacco use type Cigarette 03/06/23 13:08 e-Cigarette/Vaping Use Never Used 03/06/23 13:08 Thrive Assessment: Date of Thrive Assessment Date Thrive assessed 05/30/22 03/06/23 13:08 Const General: cooperative and no acute distress Orientation/consciousness: patient oriented x3 HENMT Head: Yes normocephalic and Yes atraumatic Face and sinus: Yes sinuses nontender Mouth: oropharynx normal and moist mucous membranes Throat: Yes posterior oropharynx normal Eyes General: appearance normal, both eyes and all related structures Pupils: Equal, round and reactive pupils present Neck Neck: Yes normal visual inspection and Yes full ROM Chest Chest palpation & inspection: normal inspection of the chest and tenderness (Generalized left-sided chest) Resp Effort & Inspection: normal respiratory effort and able to speak in complete sentences Auscultation: clear to auscultation bilaterally, no crackles, no rales, no rhonchi and no wheezes Cardio Rate: regular rate Rhythm: regular rhythm Heart sounds: S1 normal heart sound present, S2 normal heart sound present and no murmurs GI Auscultation: normal bowel sounds Skin General skin exam: no rashes or lesions noted Neuro General: patient oriented x3 Cranial nerves: Yes Equal, round and reactive pupils present Gait exam (Neuro): Normal gait present Extrem General: Yes full ROM and No edema Left upper extremity: shoulder/upper arm Details: inspection abnormal and abnormal ROM (Mild pain with range of motion); no tenderness, no swelling, no ecchymosis, no crepitus and no unsual warmth Office Procedures EKG Details: EKG reviewed by Dr. Hobbs. Normal sinus rhythm, 63 BPM. Results reviewed with the patient. [id number], Complete Assessment and Plan Assessment & Plan (1) Chest discomfort: Comment: intermittent left-sided Code(s): R07.89 - Other chest pain Plan: EKG reviewed by Dr. Hobbs. Normal sinus rhythm, 63 BPM. Results reviewed with the patient. Will obtain cardiac stress test Signs and symptoms reviewed when to notify provider go to the emergency department (2) Hypertension: Code(s): I10 - Essential (primary) hypertension Plan: Goal BP equal or less than 140/90 Blood pressure elevated in the office today, blood pressures have been slightly elevated at home as well especially diastolic BPs Increase lisinopril to 20 mg daily Continue to monitor blood pressures at home Keep appointment with nurse this week to follow-up on blood pressure Signs and symptoms reviewed when to notify provider or go to the emergency department (3) Costochondritis, acute: Code(s): M94.0 - Chondrocostal junction syndrome [Tietze] Plan: Suspect costochondritis-patient with generalized left-sided chest tenderness to palpation Encouraged heating packs p.r.n. Patient can also try [id number] ibuprofen 400 mg every 8 hours as needed Signs and symptoms reviewed when to notify provider or go to the emergency department Patient agreed with the plan Orders: Orders CA stress test Today R07.89 - Other chest pain Medications: New lisinopril 20 mg PO DAILY 30 tabs 2RF I10 - Essential (primary) hypertension Discontinued lisinopril Discontinued Reason: Doctor's Order 10 mg PO DAILY 30 tabs 3RF I10 - Essential (primary) hypertension Coding Level of Care Code Est Pt Level 4 (45282) Diagnoses Chest discomfort R07.89 Hypertension I10 Costochondritis, acute M94.0 CPT Codes EKG - CPT: 98088-[id number], Complete ([id number])
[2023-03-06 13:53] VITALS: BP 140/100
== END 2023-03-06 14:06 | disposition home or self-care (01) ==
PROVIDERS: PCP Nurse Practitioner Family; Visit Provider Nurse Practitioner Family
DX: R07.89 Other chest pain (principal); I10 Essential (primary) hypertension; M94.0 Chondrocostal junction syndrome [Tietze]
CPT/HCPCS: 93000; 99214

== ENCOUNTER → 2023-03-09 08:28 | Outpatient (REF) | payer OTHER, SELFPAY ==
--- NOTE | 2023-03-09 08:33 | CA_ITS ---
Acquisition Time: 2023-03-09 08:42:26 Total Exercise Time: 00:05:17 Test Indications: HTN Medications: SEE H Protocol: MANE Max HR: 125 BPM 75% of Pred: 166 BPM Max BP: 164/110 mmHG Max Work Load: 7.0 METS Exercise stress test exercise 5 min 17 sec of Mane protocol achieivng 70% MPHR, having to stop due to blood pressure of 164/110, without anginal symptoms, with mild lightheadedness, with isolated PVC, with resting HTN and max BP 164/110, without EKG changes. Lightheadedness resolved with rest and BP resturned to normal. Test reviewed with Dr. Aguiar. Patient did not take medication - msg sent to ordering provider. Referred By: Bailey Martínez Overread By: Milady Hawkins
== END ==
LOC: HO.CARD 08:28
PROVIDERS: PCP Nurse Practitioner Family; Visit Provider Nurse Practitioner Family
DX: R07.89 Other chest pain (principal)
CPT/HCPCS: 93017

== ENCOUNTER → 2023-03-09 08:33 | Outpatient (BNV) | payer OTHER, SELFPAY | PROVIDERS: PCP Nurse Practitioner Family; Visit Provider Nurse Practitioner | DX: R94.31 Abnormal electrocardiogram [ECG] [EKG] (principal) | CPT/HCPCS: 93016; 93018 ==

== ENCOUNTER 2023-03-12 08:00 | Outpatient (AMB) | payer OTHER, SELFPAY ==
--- NOTE | 2023-03-12 08:53 | MHC.OFFVISWM ---
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 Allergies acetaminophen [Tylenol] Allergy (Severe, Verified 03/12/23 09:02) anaphylaxis Seasonal Allergies Allergy (Severe, Verified 03/12/23 09:02) Itchy Eyes Medication List - Last Reconciled 03/12/23 by Uli Vyas MD blood pressure monitor As directed cetirizine (Zyrtec) 10 mg PO DAILY PRN clonazepam (Klonopin) 1 mg PO TID PRN dextroamphetamine-amphetamine 10 mg ER (Adderall XR) 10 mg PO DAILY dextroamphetamine-amphetamine 30 mg ER (Adderall XR) 30 mg PO DAILY gabapentin 800 mg PO QID lisinopril 20 mg PO DAILY lurasidone (Latuda) 20 mg PO BEDTIME methylcellulose (laxative) (Citrucel) 500 mg PO BID mirtazapine 45 mg PO BEDTIME omeprazole 40 mg PO DAILY pravastatin 10 mg PO BEDTIME 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 HPI Details Start time: 8.10am, End time: 9.17am ?I spent 60 minutes speaking with the patient on the phone plus an additional 7 minutes reviewing and updating records for a total of 67 minutes HPI Comments History of Present Illness Details Wakes up: 9am, sleeps: 9pm Breakfast: 10am (muffin) Lunch: 2pm (sandwich) Dinner: 6pm (chicken or steak) snacks: 12pm (chips), 4pm (chips) Exercise: none Fluids: Coffee: 1cup day (creamer), Tea/juice/soda: none, ETOH: Vodka 32oz x3/wk [facility] Medical History (Updated 03/12/23 @ 09:06 by Uli Vyas MD) DJD (degenerative joint disease) BMI 35.0-35.9,adult Obesity Diaphragmatic hernia ADHD Post traumatic stress disorder (PTSD) Bipolar disorder Anxiety Panic attacks GERD (gastroesophageal reflux disease) Depression Elevated cholesterol HTN (hypertension) Pre-diabetes Elevated blood pressure reading Elevated fasting glucose Encounter to establish care Surgical History (Updated 03/12/23 @ 09:08 by Uli Vyas MD) History of esophagogastroduodenoscopy (EGD) History of colonoscopy H/O abdominal surgery Family History Mother Diabetes Father Medical history unknown Social History Household Members Other:: has a GF Housing: Apartment Patient Tobacco Use Status: Former Tobacco user Tobacco use type: Cigarette e-Cigarette/Vaping Use: Never Used Substance Use Type: Marijuana service: No Current occupational status: employed and unemployed Cognitive needs: No Hearing needs: No Vision needs: No Assessment & Plan Assessment & Plan (1) Diaphragmatic hernia: Code(s): K44.9 - Diaphragmatic hernia without obstruction or gangrene Plan: 1.? Plan for lap sleeve gastrectomy with sleeve gastrectomy. If ventral hernias are present at time of surgery, these will be repaired laparoscopically as well. 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 I emphasized the importance of close follow-up, adherence to instructions and good communication. 2. Nutritional counseling. Start with 2 CELEBRATE REBUILD protein ([facility] at [facility]) shakes (ONE scoop EACH in 8oz low fat unsweetened almond milk each) at 9am-11am and 12pm-2pm, 1 protein bar (CELEBRATE protein bars, buy at [facility]) at 3pm-5pm, dinner at 6pm (10 forks of protein and 10 forks of salad/vegetables) AND one more protein bar after dinner at 7pm-9pm. So you do 2 protein shakes, 2 protein bars and one meal per day. Meal to include lean meat (beef, fish, pork, turkey, chicken), or nicaraguan yogurt, or egg whites, or beans with a salad with olive oil and fruits (berries, pears, apples, kiwi). Avoid salt, breads, potatoes, rice, pasta, desserts. 3. Each shake would be drunk slowly, like coffee in a period of 2 hours. May add your coffee into the shakes if flavors match. 4. Cut each bar in 4 pieces and eat each piece in 30min ?to make each bar last 2 hours. 5. I emphasized the importance of measuring accurately the food portion and measure it when serving the food in plate 6. The meal portions include 10 full-size forks of meat and 10 full-size forks of salad. You always eat the meat portion but you can replace up to 5 forks for salad/vegetables with rice, potatoes or pasta, or a fruit ?if you like. The less you do it the better weight loss will be. 7. One full-size fork is what it can be scooped on the fork without falling aside and not what can be bit with the fork. Use regular forks like those you find in a typical restaurant. 8.? Please send me weight measurements as soon as possible and then once a week. Always include your diet and exercise plan. 9. Start walking outside daily, tracking calories with a goal of 300 calories per day, daily. Goal is to burn 2000 calories per week on exercise, which means either 300 calories daily, or 400 calories 5 days per week, or 500 calories 4 days per week, or 650 calories 3 days per week. 10. Alternatively purchase a stationary bike, elliptical or treadmill at home that can track calories. Let me know if you do so I can give you an exercise plan. 11.?Goal is to lose at least 1.5-2lbs per week 12. Goal to lose 10% of your weight before surgery, which is about 26lbs. Ultimate weight goal: 231lbs before surgery 13. Please follow the diet plan exactly without any change. If you don't like something about the plan or you feel hungry you need to communicate with me so I can help you revise the plan. You should not change the plan yourself. (2) GERD (gastroesophageal reflux disease): Code(s): K21.9 - Gastro-esophageal reflux disease without esophagitis (3) Hyperlipidemia: Code(s): E78.5 - Hyperlipidemia, unspecified (4) Hypertension: Code(s): I10 - Essential (primary) hypertension (5) Pre-diabetes: Code(s): R73.03 - Prediabetes (6) Depression: Code(s): F32.A - Depression, unspecified Qualifiers: Depression Type: other depression Qualified Code(s): F32.89 - Other specified depressive episodes (7) Anxiety: Code(s): F41.9 - Anxiety disorder, unspecified (8) ADHD: Code(s): F90.9 - Attention-deficit hyperactivity disorder, unspecified type (9) PTSD (post-traumatic stress disorder): Code(s): F43.10 - Post-traumatic stress disorder, unspecified (10) Obesity: Code(s): E66.9 - Obesity, unspecified (11) BMI 35.0-35.9,adult: Code(s): Z68.35 - Body mass index [BMI] 35.0-35.9, adult Orders: Orders Insulin Today E66.9 - Obesity, unspecified, E78.5 - Hyperlipidemia, unspecified, K21.9 - Gastro-esophageal reflux disease without esophagitis, R73.03 - Prediabetes Lipid Panel Today E66.9 - Obesity, unspecified, E78.5 - Hyperlipidemia, unspecified, K21.9 - Gastro-esophageal reflux disease without esophagitis, R73.03 - Prediabetes IRON PROFILE Today E66.9 - Obesity, unspecified, E78.5 - Hyperlipidemia, unspecified, K21.9 - Gastro-esophageal reflux disease without esophagitis, R73.03 - Prediabetes Vitamin B12 and Folate Today E66.9 - Obesity, unspecified, E78.5 - Hyperlipidemia, unspecified, K21.9 - Gastro-esophageal reflux disease without esophagitis, R73.03 - Prediabetes Vitamin A Today E66.9 - Obesity, unspecified, E78.5 - Hyperlipidemia, unspecified, K21.9 - Gastro-esophageal reflux disease without esophagitis, R73.03 - Prediabetes C Reactive Protein Today E66.9 - Obesity, unspecified, E78.5 - Hyperlipidemia, unspecified, K21.9 - Gastro-esophageal reflux disease without esophagitis, R73.03 - Prediabetes Ferritin Today E66.9 - Obesity, unspecified, E78.5 - Hyperlipidemia, unspecified, K21.9 - Gastro-esophageal reflux disease without esophagitis, R73.03 - Prediabetes TSH reflex Free T4 Today E66.9 - Obesity, unspecified, E78.5 - Hyperlipidemia, unspecified, K21.9 - Gastro-esophageal reflux disease without esophagitis, R73.03 - Prediabetes US abdomen comp w elastography Today E66.9 - Obesity, unspecified, E78.5 - Hyperlipidemia, unspecified, K21.9 - Gastro-esophageal reflux disease without esophagitis, R73.03 - Prediabetes ECG 12 lead EKG Today E66.9 - Obesity, unspecified, E78.5 - Hyperlipidemia, unspecified, K21.9 - Gastro-esophageal reflux disease without esophagitis, R73.03 - Prediabetes Complete Blood Count Auto Diff Today E66.9 - Obesity, unspecified, E78.5 - Hyperlipidemia, unspecified, K21.9 - Gastro-esophageal reflux disease without esophagitis, R73.03 - Prediabetes Zinc Today E66.9 - Obesity, unspecified, E78.5 - Hyperlipidemia, unspecified, K21.9 - Gastro-esophageal reflux disease without esophagitis, R73.03 - Prediabetes Comprehensive Met. Panel Today E66.9 - Obesity, unspecified, E78.5 - Hyperlipidemia, unspecified, K21.9 - Gastro-esophageal reflux disease without esophagitis, R73.03 - Prediabetes Vitamin B1 Today E66.9 - Obesity, unspecified, E78.5 - Hyperlipidemia, unspecified, K21.9 - Gastro-esophageal reflux disease without esophagitis, R73.03 - Prediabetes PTHI Today E66.9 - Obesity, unspecified, E78.5 - Hyperlipidemia, unspecified, K21.9 - Gastro-esophageal reflux disease without esophagitis, R73.03 - Prediabetes Vitamin D 25-OH Total Today E66.9 - Obesity, unspecified, E78.5 - Hyperlipidemia, unspecified, K21.9 - Gastro-esophageal reflux disease without esophagitis, R73.03 - Prediabetes Hemoglobin A1c Today E66.9 - Obesity, unspecified, E78.5 - Hyperlipidemia, unspecified, K21.9 - Gastro-esophageal reflux disease without esophagitis, R73.03 - Prediabetes XR chest 2V Today E66.9 - Obesity, unspecified, E78.5 - Hyperlipidemia, unspecified, K21.9 - Gastro-esophageal reflux disease without esophagitis, R73.03 - Prediabetes Referrals Behavioral Health Referral E66.9 - Obesity, unspecified, E78.5 - Hyperlipidemia, unspecified, K21.9 - Gastro-esophageal reflux disease without esophagitis, R73.03 - Prediabetes Nutrition/Dietitian Referral E66.9 - Obesity, unspecified, E78.5 - Hyperlipidemia, unspecified, K21.9 - Gastro-esophageal reflux disease without esophagitis, R73.03 - Prediabetes Telehealth Telehealth Location of provider rendering services: practice address Location of patient: address on file Patient Identification confirmed using: Name, : Yes Telehealth method: voice only Patient verbally consented to treatment: Yes Patient verbally consented to billing insurance company: Yes Patient informed of any privacy concerns related to visit: Yes Minutes spent on Phone/Video with Pt.: 67 Coding Level of Care Code Tele Est Pt Level 5 (31937) Diagnoses Diaphragmatic hernia K44.9 GERD (gastroesophageal reflux disease) K21.9 Hyperlipidemia E78.5 Hypertension I10 Pre-diabetes R73.03 Other depression F32.89 Depression Type: other depression Anxiety F41.9 ADHD F90.9 PTSD (post-traumatic stress disorder) F43.10 Obesity E66.9 BMI 35.0-35.9,adult Z68.35 Time Spent (min) 67
[2023-03-12 09:02] VITALS: BMI 35.8
== END 2023-03-12 09:18 | disposition home or self-care (01) ==
PROVIDERS: PCP Nurse Practitioner Family; Visit Provider Surgery
DX: E66.9 Obesity, unspecified (principal); Z68.35 Body mass index [BMI] 35.0-35.9, adult; K44.9 Diaphragmatic hernia without obstruction or gangrene; F43.10 Post-traumatic stress disorder, unspecified
CPT/HCPCS: 99215

== ENCOUNTER → 2023-03-12 08:00 | Outpatient (BNVA) | payer OTHER, SELFPAY | PROVIDERS: PCP Nurse Practitioner Family; Visit Provider Surgery ==

== ENCOUNTER 2023-03-15 08:21 | Outpatient (REF) | payer OTHER, SELFPAY ==
--- NOTE | ~2023-03-15 | XR_ITS ---
EXAMINATION: XR CHEST CLINICAL INFORMATION: Prediabetes COMPARISON: None available. TECHNIQUE: 2 views of the chest were obtained. FINDINGS: There is no gross pneumothorax. Lung volumes are low. Heart size is normal. Mild degenerative changes in the thoracic spine. No focal consolidation to suggest pneumonia. XR/XR chest 2V IMPRESSION: No evidence of pneumonia.
--- NOTE | 2023-03-15 08:27 | ECG_ITS ---
Test Reason : R73.03 - Prediabetes Blood Pressure : / mmHG Vent. Rate : 058 BPM Atrial Rate : 058 BPM P-R Int : 180 ms QRS Dur : 098 ms QT Int : 428 ms P-R-T Axes : 026 002 016 degrees QTc Int : 420 ms Sinus bradycardia Otherwise normal ECG When compared with ECG of 03-AUG-2016 09:25, No significant change was found Referred By: Uli Vyas Electronically Signed By:LA NENA GUIDRY MD
[2023-03-15 08:43] LABS: MANUAL DIFF FLAG NO
[2023-03-15 09:05] LABS: Basophils Percent Auto 0.7 % (0-2); Eosinophils Absolute Auto 0.1 X10*3/uL (0.0-0.4); Eosinophils Percent Auto 1.4 % (0-4); Hemoglobin 14.6 g/dl (14.0-18.0); Imm Gran Abs Auto 0.01 X10*3/uL (0.00-0.03); Imm Gran Pct Auto 0.2 % (0.0-0.4); Lymphocytes Absolute Auto 1.8 X10*3/uL (1.2-4.9); Lymphocytes Percent Auto 30.9 % (20-40); Mean Corpuscular Hemoglobin 30.8 pg (27.0-33.0); Mean Corpuscular Volume 90.7 fL (80.0-98.0); Mean Platelet Volume 11.8 fL (9.4-12.4); Monocytes Absolute Auto 0.6 X10*3/uL (0.1-1.2); Monocytes Percent Auto 10.9 % (2-11); Neutrophils Absolute Auto 3.2 x10*3/uL (2.0-8.3); Neutrophils Percent Auto 55.9 % (45-73); Platelet Count 301 X10*3/uL (160-400); Red Blood Count 4.74 X10*6/uL (4.60-5.80); Red Cell Distribution Width 12.2 % (11.0-16.0); White Blood Count 5.7 X10*3/uL (4.8-10.8)
[2023-03-15 09:14] LABS: Estimated Average Glucose 140 mg/dL; Hemoglobin A1c % 6.5 % (<6.0)
[2023-03-15 10:24] LABS: Alanine Aminotransferase 36 U/L (0-40); Albumin Level 4.3 g/dL (3.5-5.0); Alkaline Phosphatase 77 U/L (39-117); Anion Gap 14 (12-20); Aspartate Amino Transferase 20 U/L (5-37); Bilirubin Total 0.6 mg/dL (0.0-1.0); Blood Urea Nitrogen 14 mg/dL (9-16); C Reactive Protein 0.32 mg/dL (< or = 0.50); Calcium 10.3 mg/dL (8.4-10.2); Carbon Dioxide 26 mmol/L (22-29); Chloride 102 mmol/L (96-108); Cholesterol 249 mg/dL (<200); Estimated Glomerular Filt Rate > 60; Glucose Random 135 mg/dL (60-115); HDL Cholesterol 40 mg/dL (>40); Iron 99 mcg/dL (45-160); LDL Cholesterol Calculated 163 mg/dL (<100); Percent Iron Saturation 28 % (15-50); Potassium 4.1 mmol/L (3.3-5.1); Sodium 138 mmol/L (135-145); Total Iron Binding Capacity 355 mcg/dL (228-428); Total Protein 7.6 g/dL (6.5-8.0); Triglycerides 234 mg/dL (<150); Unsaturated Iron Binding 256 ug/dL
[2023-03-15 10:45] LABS: Ferritin 150 ng/mL (20-250); Insulin 12 uU/mL (2-29); TSH reflex Free T4 1.87 uIU/mL (0.32-4.0); Vitamin D 25-OH Total 29.9 ng/mL (>30)
[2023-03-15 10:54] LABS: Folate 17.8 ng/mL (> or = 4.0); Vitamin B12 229 pg/mL (200-900)
[2023-03-16 18:32] LABS: Calcium (PTHI) 10.2 mg/dL (8.6-10.3); PTHI 19 pg/mL (16-77)
[2023-03-18 16:53] LABS: Zinc 86 mcg/dL (60-130)
[2023-03-19 12:52] LABS: Vitamin B1 31 nmol/L (8-30)
[2023-03-21 12:54] LABS: Vitamin A 62 mcg/dL (38-98)
== END 2023-03-15 08:22 | disposition home or self-care (01) ==
LOC: HO.LAB 08:21
PROVIDERS: PCP Nurse Practitioner Family; Visit Provider Surgery
DX: R73.03 Prediabetes (principal); E66.9 Obesity, unspecified; E78.5 Hyperlipidemia, unspecified; K21.9 Gastro-esophageal reflux disease without esophagitis
CPT/HCPCS: 36415; 71046; 80053; 80061; 82306; 82607; 82728; 82746; 83036; 83525; 83540; 83970; 84425; 84443; 84590; 84630; 85025; 86140; 93005

== ENCOUNTER → 2023-03-21 12:01 | Outpatient (BNVA) | payer OTHER, SELFPAY | PROVIDERS: PCP Nurse Practitioner Family; Visit Provider Physician Assistant ==

== ENCOUNTER → 2023-04-03 14:38 | Outpatient (BNVA) | payer OTHER, SELFPAY | PROVIDERS: PCP Nurse Practitioner Family; Visit Provider Dietitian, Registered | DX: K21.9 Gastro-esophageal reflux disease without esophagitis (principal); E66.9 Obesity, unspecified; R73.03 Prediabetes; E78.5 Hyperlipidemia, unspecified; Z68.35 Body mass index [BMI] 35.0-35.9, adult | CPT/HCPCS: 97802 ==

== ENCOUNTER 2023-04-09 08:19 | Outpatient (AMB) | payer OTHER, SELFPAY ==
--- NOTE | 2023-04-09 16:28 | A.OFFVIS_ITS ---
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 He is hoping to do so very soon [facility] Medical History (Updated 03/12/23 @ 09:06 by Uli Vyas MD) DJD (degenerative joint disease) BMI 35.0-35.9,adult Obesity Diaphragmatic hernia ADHD Post traumatic stress disorder (PTSD) Bipolar disorder Anxiety Panic attacks GERD (gastroesophageal reflux disease) Depression Elevated cholesterol HTN (hypertension) Pre-diabetes Elevated blood pressure reading Elevated fasting glucose Encounter to establish care Surgical History (Updated 03/12/23 @ 09:08 by Uli Vyas MD) History of esophagogastroduodenoscopy (EGD) History of colonoscopy H/O abdominal surgery Family History Mother Diabetes Father Medical history unknown Social History Household Members Other:: has a GF Housing: Apartment Patient Tobacco Use Status: Former Tobacco user Tobacco use type: Cigarette e-Cigarette/Vaping Use: Never Used Substance Use Type: Marijuana service: No Current occupational status: employed and unemployed Cognitive needs: No Hearing needs: No Vision needs: No Assessment & Plan Assessment & Plan (1) Obesity: Code(s): E66.9 - Obesity, unspecified Plan: We discussed again the right plan and asked him to let me know when he starts the plan: 2. Nutritional counseling. Start with 2 CELEBRATE REBUILD protein (buy at [facility]) shakes (ONE scoop EACH in 8oz low fat unsweetened almond milk each) at 9am-11am and 12pm-2pm, 1 protein bar (CELEBRATE protein bars, buy at [facility]'s gift shop) at 3pm-5pm, dinner at 6pm (10 forks of protein and 10 forks of salad/vegetables) AND one more protein bar after dinner at 7pm-9pm. So you do 2 protein shakes, 2 protein bars and one meal per day. Meal to include lean meat (beef, fish, pork, turkey, chicken), or nicaraguan yogurt, or egg whites, or beans with a salad with olive oil and fruits (berries, pears, apples, kiwi). Avoid salt, breads, potatoes, rice, pasta, desserts. 3. Each shake would be drunk slowly, like coffee in a period of 2 hours. May add your coffee into the shakes if flavors match. 4. Cut each bar in 4 pieces and eat each piece in 30min ?to make each bar last 2 hours. 5. I emphasized the importance of measuring accurately the food portion and measure it when serving the food in plate 6. The meal portions include 10 full-size forks of meat and 10 full-size forks of salad. You always eat the meat portion but you can replace up to 5 forks for salad/vegetables with rice, potatoes or pasta, or a fruit ?if you like. The less you do it the better weight loss will be. 7. One full-size fork is what it can be scooped on the fork without falling aside and not what can be bit with the fork. Use regular forks like those you find in a typical restaurant. 8.? Please send me weight measurements as soon as possible and then once a week. Always include your diet and exercise plan. 9. Start walking outside daily, tracking calories with a goal of 300 calories per day, daily. Goal is to burn 2000 calories per week on exercise, which means either 300 calories daily, or 400 calories 5 days per week, or 500 calories 4 days per week, or 650 calories 3 days per week. (2) BMI 35.0-35.9,adult: Code(s): Z68.35 - Body mass index [BMI] 35.0-35.9, adult Telehealth Telehealth Location of provider rendering services: practice address Location of patient: address on file Patient Identification confirmed using: Name, : Yes Telehealth method: voice only Patient verbally consented to treatment: Yes Patient verbally consented to billing insurance company: Yes Patient informed of any privacy concerns related to visit: Yes Minutes spent on Phone/Video with Pt.: 20 Coding Level of Care Code Tele Est Pt Level 3 (28912) Diagnoses Obesity E66.9 BMI 35.0-35.9,adult Z68.35 Time Spent (min) 20
== END 2023-04-09 16:34 | disposition home or self-care (01) ==
LOC: HO.HBS 08:19
PROVIDERS: PCP Nurse Practitioner Family; Visit Provider Surgery
DX: E66.9 Obesity, unspecified (principal); Z68.35 Body mass index [BMI] 35.0-35.9, adult
CPT/HCPCS: 99213

== ENCOUNTER → 2023-04-09 08:19 | Outpatient (BNVA) | payer OTHER, SELFPAY | PROVIDERS: PCP Nurse Practitioner Family; Visit Provider Surgery ==

== ENCOUNTER 2023-04-12 08:37 | Outpatient (REF) | payer OTHER, SELFPAY ==
--- NOTE | ~2023-04-12 | US_ITS ---
EXAMINATION: US COMPLETE ABDOMEN WITH LIVER ELASTOGRAPHY CLINICAL INFORMATION: Previous IVP COMPARISON: Previous CT scan of the abdomen and pelvis September 2022 TECHNIQUE: Real-time imaging of the abdominal viscera. Noninvasive ultrasound liver fibrosis assessment is performed using Kem ElastPQ point quantification shear wave elastography (2D-SWE) with a C5-2 MHz transducer. Multiple elastography samples are obtained. FINDINGS: PANCREAS: Normal. ABDOMINAL AORTA: The proximal, middle, and distal aortic segments are normal in caliber. INFERIOR VENA CAVA: Visualized portions are normal. LIVER: Liver echotexture is increased suggestive of fatty infiltration. Liver is upper normal in size. Liver is normal in contour. Focal fatty sparing adjacent to the gallbladder.. No other focal lesion or intrahepatic biliary duct dilatation. The right lobe measures 18 cm in length. The left lobe measures 11 cm in length. Portal flow is normal/hepatopedal Shear wave liver elastography median stiffness is 1.7 m/s (reference: normal median stiffness is 1.3 m/s or less). IQR/median stiffness to assess sampling precision is 0.08 (reference: good quality data set is IQR/median stiffness of 0.15 or less). GALLBLADDER: Normal. The gallbladder is physiologically distended without evidence of stones, sludge, polyps, wall thickening or pericholecystic fluid. COMMON BILE DUCT: Normal in caliber measuring 0.4 cm in diameter. RIGHT KIDNEY: Normal. No hydronephrosis. No renal calculi or focal parenchymal lesions. The kidney measures 12.6 cm in maximum dimension. LEFT KIDNEY: Normal. No hydronephrosis. No renal calculi or focal parenchymal lesions. The kidney measures 12.4 cm in maximum dimension. SPLEEN: Normal. The spleen measures 10 cm in maximum dimension. FREE FLUID: None. US/US abdomen comp w elastography IMPRESSION: 1. Impression upper normal-size echogenic liver suggestive of fatty infiltration. 2. Liver elastography: Adequate liver sampling. Borderline elevated liver stiffness. REFERENCE: Society of Radiologists in Ultrasound Liver Stiffness Thresholds (2019): LIVER STIFFNESS THRESHOLDS: *Liver Stiffness equal or less than 1.3 m/s: High probability of being normal. *Liver Stiffness less than 1.7 m/s: In the absence of other known clinical signs, rules out compensated advanced chronic liver disease. *Liver Stiffness 1.7-2.1 m/s: Suggestive of compensated advanced chronic liver disease but need further test for confirmation. *Liver Stiffness over 2.1 m/s: Rules in compensated advanced chronic liver disease. *Liver Stiffness over 2.4 m/s: Suggestive of clinically significant portal hypertension. QUALITY OF DATA SET: *IQR/Median value equal or less than 0.15 implies a quality data set. *IQR/Median value over 0.15 implies a poor quality data set. SIGNIFICANT CHANGE FROM PRIOR EXAM: Significant change if liver stiffness measurement is 10% or greater from prior exam. OTHER CONSIDERATIONS: The stage of liver fibrosis may be overestimated in the setting of acute hepatitis, liver inflammation, elevated liver function tests, hepatic vascular congestion, obstructive cholestasis, non-fasting state, and infiltrative diseases such as amyloidosis and lymphoma. In some patients with NAFLD, the liver stiffness thresholds for compensated advanced chronic liver disease may be lower. In causes other than viral hepatitis and NAFLD, liver stiffness thresholds are not well established.
== END 2023-04-12 08:38 | disposition home or self-care (01) ==
LOC: HO.US 08:37
PROVIDERS: PCP Nurse Practitioner Family; Visit Provider Surgery
DX: E66.9 Obesity, unspecified (principal); K21.9 Gastro-esophageal reflux disease without esophagitis; R73.03 Prediabetes; E78.5 Hyperlipidemia, unspecified
CPT/HCPCS: 76705; 76981

== ENCOUNTER 2023-04-26 14:05 | Outpatient (AMB) | payer OTHER, SELFPAY ==
--- NOTE | 2023-04-26 14:01 | MHC.AMNUTRGE ---
Intake Intake Visit Reasons: VIDEO F/U SWL Allergies acetaminophen [Tylenol] Allergy (Severe, Verified 03/12/23 09:02) anaphylaxis Seasonal Allergies Allergy (Severe, Verified 03/12/23 09:02) Itchy Eyes HPI Nutrition Presentation Reason for consult elevated BMI Diet Assmnt Details Due to financial reasons, he just was able to purchase the body composition scale as well as the protein shakes and protein bars. they are coming in the mail 04/30. has been eating : 2 eggs, 2 toast fruit meal 5pm chicken or ground beef with noodles, tries to have a veg with every meal No classes completed yet. I sent link today and educational info Dietary counseling reduction Diagnosis Nutrition problem #1 overweight/obesity As related to (etiology) #1 excess energy intake and physical inactivity As evidenced by (sign/symptom) #1 high BMI Monitoring/Goals Nutrition problem monitoring total energy intake, level of knowledge/skill, total PRO intake, total CHO intake and weight Outcome progress not met Learning/Education Readiness to learn good Stages of change preparation Educational materials provided Yes Most Recent Diabetes Results: Cholesterol 249 mg/dL (<200) H 03/15/23 HDL Cholesterol 40 mg/dL (>40) L 03/15/23 Triglycerides 234 mg/dL (<150) H 03/15/23 Creatinine 0.87 mg/dL (0.5-1.4) 03/15/23 Blood Urea Nitrogen 14 mg/dL (9-16) 03/15/23 Sodium 138 mmol/L (135-145) 03/15/23 Potassium 4.1 mmol/L (3.3-5.1) 03/15/23 Chloride 102 mmol/L (96-108) 03/15/23 Carbon Dioxide 26 mmol/L (22-29) 03/15/23 Calcium 10.3 mg/dL (8.4-10.2) H 03/15/23 AST 20 U/L (5-37) 03/15/23 ALT 36 U/L (0-40) 03/15/23 Total Protein 7.6 g/dL (6.5-8.0) 03/15/23 Albumin 4.3 g/dL (3.5-5.0) 03/15/23 [facility] Medical History (Updated 03/12/23 @ 09:06 by Uli Vyas MD) DJD (degenerative joint disease) BMI 35.0-35.9,adult Obesity Diaphragmatic hernia ADHD Post traumatic stress disorder (PTSD) Bipolar disorder Anxiety Panic attacks GERD (gastroesophageal reflux disease) Depression Elevated cholesterol HTN (hypertension) Pre-diabetes Elevated blood pressure reading Elevated fasting glucose Encounter to establish care Surgical History (Updated 03/12/23 @ 09:08 by Uli Vyas MD) History of esophagogastroduodenoscopy (EGD) History of colonoscopy H/O abdominal surgery Family History Mother Diabetes Father Medical history unknown Social History Household Members Other:: has a GF Housing: Apartment Patient Tobacco Use Status: Former Tobacco user Tobacco use type: Cigarette e-Cigarette/Vaping Use: Never Used Substance Use Type: Marijuana service: No Current occupational status: employed and unemployed Cognitive needs: No Hearing needs: No Vision needs: No Assessment & Plan Assessment & Plan (1) Obesity (BMI 30-39.9): Code(s): E66.9 - Obesity, unspecified Plan begin plan from surgeon when able Patient Instructions: continue to choose lean proteins and include vegetables with all meals. Will begin nutrition plan from surgeon when he gets the products. complete online classes and f/u when completed. Telehealth Telehealth Location of provider rendering services: practice address Location of patient: address on file Patient Identification confirmed using: Name, : Yes Telehealth method: voice only Patient verbally consented to treatment: Yes Patient verbally consented to billing insurance company: Yes Patient informed of any privacy concerns related to visit: Yes Minutes spent on Phone/Video with Pt.: 15 Coding Level of Care Code Nutr Indiv Subseq (79841) Diagnoses Obesity (BMI 30-39.9) E66.9 Time Spent (min) 15
== END 2023-04-26 14:26 | disposition home or self-care (01) ==
LOC: HO.HBS 14:05
PROVIDERS: PCP Nurse Practitioner Family; Visit Provider Dietitian, Registered
DX: E66.9 Obesity, unspecified (principal)

== ENCOUNTER → 2023-04-26 14:05 | Outpatient (BNVA) | payer OTHER, SELFPAY | PROVIDERS: PCP Nurse Practitioner Family; Visit Provider Dietitian, Registered | DX: E66.09 Other obesity due to excess calories (principal); Z68.35 Body mass index [BMI] 35.0-35.9, adult; Z71.3 Dietary counseling and surveillance | CPT/HCPCS: 97803 ==

== ENCOUNTER 2023-05-24 10:20 | Outpatient (AMB) | payer OTHER, SELFPAY ==
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
== END 2023-05-24 11:17 | disposition home or self-care (01) ==
LOC: HO.HBST 10:20
PROVIDERS: PCP Nurse Practitioner Family; Visit Provider Counselor Mental Health
DX: F43.10 Post-traumatic stress disorder, unspecified (principal); F90.9 Attention-deficit hyperactivity disorder, unspecified type; F41.9 Anxiety disorder, unspecified; F32.89 Other specified depressive episodes
CPT/HCPCS: 90791

== ENCOUNTER → 2023-05-24 10:20 | Outpatient (BNVA) | payer OTHER, SELFPAY | PROVIDERS: PCP Nurse Practitioner Family; Visit Provider Counselor Mental Health ==

== ENCOUNTER 2023-07-04 14:46 | Outpatient (AMB) | payer OTHER, SELFPAY ==
[2023-07-04 14:52] VITALS: BP 144/100; PULSE 95; O2SAT 98; BMI 36.1
--- NOTE | 2023-07-04 14:52 | MHC.PC.OV ---
Vital Signs 07/04/23 14:52 Height 5 ft 11 in Weight 259 lb 2 oz BMI 36.1 BP 144/100 H Blood Pressure Location Lt brachial Position Sitting Pulse 95 Pulse Source Pulse Oximeter Pulse Oximetry (%) 98 Oxygen Delivery Method Room Air Intake Visit Reasons: 3 month follow up/karlee patient Intake Note: Pransfer of care from [facility]. Last seen by PCP was back in [facility]-01/06/2019. Punch Finisher Required: No Accompanied by: Self / Same As Patient Allergies acetaminophen [Tylenol] Allergy (Severe, Verified 07/04/23 14:55) anaphylaxis Seasonal Allergies Allergy (Severe, Verified 07/04/23 14:55) Itchy Eyes Medication List - Last Reconciled 07/04/23 by Bruno Melo PA-C blood pressure monitor As directed cetirizine (Zyrtec) 10 mg PO DAILY PRN clonazepam (Klonopin) 1 mg PO TID PRN dextroamphetamine-amphetamine 10 mg ER (Adderall XR) 10 mg PO DAILY dextroamphetamine-amphetamine 30 mg ER (Adderall XR) 30 mg PO DAILY gabapentin 800 mg PO QID lisinopril 30 mg PO DAILY lurasidone (Latuda) 20 mg PO BEDTIME mirtazapine 45 mg PO BEDTIME omeprazole 40 mg PO DAILY pravastatin 10 mg PO BEDTIME Tobacco use date assessed: 07/04/23 Dental Screening Dental Screen Date: 07/04/23 Did you have a dental visit in the last 12 months?: No Did you have a dental problem in the last 6 months where you did not have access to dental care?: No Was dental information given to patient?: Yes HPI 3 month follow up/karlee patient HPI Details Patient is a 53-year-old male here today for follow-up visit. This is the 1st time I am meeting this 53-year-old male with a past medical history significant for obesity, ADHD, PTSD, bipolar disorder, major depressive disorder, hypertension. . Hypertension: Blood pressure in office today elevated in office. He does not regularly check his blood pressure at home. He is willing to add on new blood pressure medication for better blood pressure control. .. /ADHD/PTSD: Followed by psychiatrist and mental health therapist. Psychiatry managing patient's mental health medication. .. Hyperlipidemia: Patient's most recent lipid panel showing elevated total cholesterol and LDL. .. Impaired glucose metabolism: Patient A1c in prediabetic range 6.3. He is willing to start metformin 500 mg daily. He is interested in speaking with a passenger tire builder as well to establish better eating habits. Laboratory Tests 03/15/23 03/15/23 07/04/23 08:41 08:41 14:48 Hgb A1c (Clinic) 6.3 H Hemoglobin A1c % 6.5 H Triglycerides 234 H Cholesterol 249 H LDL Cholesterol, C alc 163 H [facility] Medical History (Updated 07/09/23 @ 07:42 by Bruno Melo PA-C) DJD (degenerative joint disease) BMI 35.0-35.9,adult Obesity Diaphragmatic hernia ADHD Post traumatic stress disorder (PTSD) Bipolar disorder Anxiety Panic attacks GERD (gastroesophageal reflux disease) Depression Elevated cholesterol HTN (hypertension) Pre-diabetes Elevated blood pressure reading Elevated fasting glucose Encounter to establish care Surgical History History of esophagogastroduodenoscopy (EGD) History of colonoscopy H/O abdominal surgery Family History Mother Diabetes Father Medical history unknown Social History Household Members Other:: has a GF Housing: Apartment Patient Tobacco Use Status: Former Tobacco user Tobacco use type: Cigarette e-Cigarette/Vaping Use: Never Used Substance Use Type: Marijuana service: No Current occupational status: employed and unemployed Cognitive needs: No Hearing needs: No Vision needs: No Questionnaire PHQ-9 Over the last 2 weeks, how often have you been bothered by any of the following problems? 1. Little interest or pleasure in doing things: not at all 2. Feeling down, depressed, or hopeless: not at all 3. Trouble falling or staying asleep, or sleeping too much: not at all 4. Feeling tired or having little energy: not at all 5. Poor appetite or overeating: not at all 6. Feeling bad about yourself - or that you are a failure or have let yourself or your family down: not at all 7. Trouble concentrating on things, such as reading the newspaper or watching television: not at all 8. Moving or speaking so slowly that other people could have noticed. Or the opposite - being so fidgety or restless that you have been moving around a lot more than usual: not at all 9. Thoughts that you would be better off or of hurting yourself in some way: not at all Total score: 0 Depression Screening Interpretation: Negative Depression Screening Done: Yes 28514 - PHQ-9 Billing: Yes Source: Developed by Drs. Aristeo Alejandro, Eliana Lowe, Kailash Lorenzo and colleagues, with an educational devin from [employer]. Thrive Questionnaire Date Thrive assessed: 07/04/23 I am a: Patient What is your living situation today?: I have a steady place to live Within the past 12 months, did the food you bought not last and you didn't have the money to get more?: Never true Within the past 12 months, did you worry whether your food would run out before you got money to buy more?: Never true Do you have trouble paying for medicines?: No Do you have trouble getting transportation to medical appointments?: No Do you have trouble paying your heating and electricity bill?: No Do you have trouble taking care of your child, family member or friend?: No Do you have trouble with day-to-day activities such as bathing, preparing meals, shopping, managing finances, etc.?: No Are you currently unemployed and looking for a job?: No Are you interested in more education?: No Please select the resources that you would like help with: None Currently or been in a relationship where the following occur: no concerns reported THRIVE Score: 0 AUDIT C Alcohol Use Questionnaire (AUDIT-C) 1. How often do you have a drink containing alcohol?: Never 3. How often do you have six or more drinks on one occasion?: Never Total Score: 0 Score Reviewed/Action Taken: No HIRA-7 AMB Questionnaire HIRA-7 Date HIRA - 7 assessed: 07/04/23 Feeling nervous, anxious, or on edge: 2 = More than half the days Not being able to stop or control worryin = Nearly every day Worrying too much about different things: 2 = More than half the days Trouble relaxin = More than half the days Being so restless that it is hard to sit still: 2 = More than half the days Becoming easily annoyed or irritable: 1 = Several days Feeling afraid as if something awful might happen: 2 = More than half the days Total HIRA-7 score (0-4 normal; 5-9 mild; 10-14 moderate; 15-21 severe): 14 Source: Developed by Drs. Aristeo Alejandro, Eliana Lowe, Kailash Lorenzo and colleagues, with an educational devin from [employer]. HIRA-7 Assessment Billing HIRA-7 Assessment Tool: HIRA-7 Assessment 86606 Review of Systems Const Denies headache(s) Eyes Denies loss of vision ENT Denies vertigo, Denies dizziness, Denies headache(s) and Denies sore throat Card Denies chest pain, Denies leg edema and Denies lightheadedness Resp Denies cough, Denies hemoptysis and Denies wheezing GI Denies abdominal pain, Denies melena, Denies constipation, Denies diarrhea and Denies vomiting Denies dysuria, Denies urinary frequency and Denies urinary urgency Musc Denies arthralgias, Denies joint swelling, Denies numbness and Denies tingling Neuro Denies Abnormal speech present, Denies behavioral changes, Denies vertigo, Denies dizziness, Denies headache(s), Denies loss of vision, Denies memory loss, Denies numbness and Denies tingling Psych Denies anxiety, Denies behavioral changes, Denies depression, Denies memory loss and Denies panic attacks Yan/Lymph Denies easy bleeding and Denies easy bruising Aller/Immun Denies wheezing Physical exam (Primary Care) Vital Signs: Last Vital Signs Pulse 95 07/04/23 14:52 BP 144/100 H 07/04/23 14:52 Pulse Ox 98 07/04/23 14:52 Oxygen Delivery Method Room Air 07/04/23 14:52 BMI result Body Mass Index 36.1 BMI Assessment/Plan discussion: High Tobacco/Smoking Status: Tobacco use Status Tobacco use date assessed 07/04/23 07/04/23 14:58 Patient Tobacco Use Status Former Tobacco user 07/04/23 14:54 Tobacco use type Cigarette 07/04/23 14:54 e-Cigarette/Vaping Use Never Used 07/04/23 14:54 PHQ-9: PHQ-9 Score PHQ-9: Total score 0 07/04/23 15:24 Depression Screening Interpretation: Negative Thrive Assessment: Date of Thrive Assessment Date Thrive assessed 07/04/23 07/04/23 14:58 Currently or been in a relationship where the following occur: no concerns reported Const Other: Obese General: healthy appearing, no acute distress, alert and awake Nutritional Appearance: well nourished Orientation/consciousness: oriented to person, oriented to place and oriented to time HENMT Ears: TM's normal bilaterally General nose exam: Normal nasal mucous membranes and turbinates present Eyes Conjunctivae: conjunctivae normal Sclerae: sclerae normal Pupils: Equal, round and reactive pupils present Neck Neck: Yes no lymphadenopathy and Yes no JVD Thyroid: Thyroid normal Carotids: no bruits Resp Effort & Inspection: normal respiratory effort and not tachypneic Auscultation: no crackles, no rales, no rhonchi and no wheezes Cardio Rate: regular rate Rhythm: regular rhythm Heart sounds: no murmurs and normal S1 and S2 GI Palpation (GI): Soft to palpation, nontender, no hepatomegaly and no splenomegaly Auscultation: normal bowel sounds Skin General skin exam: no rashes or lesions noted and dry skin Neuro General: oriented to person, oriented to place and oriented to time Cranial nerves: Yes Equal, round and reactive pupils present Speech: No Abnormal speech present Gait exam (Neuro): Normal gait present Motor exam (neuro): no tremor noted Extrem Right upper extremity: full ROM Left upper extremity: full ROM Right lower extremity: full ROM; no edema Left lower extremity: full ROM; no edema Psych Mental Status: mental status grossly normal Speech and movement: Normal speech and movement present Affect: normal affect Attitude: cooperative Thought process: Normal thought process present Results AMB Hemoglobin A1c AMB Hemoglobin A1c 6.3 % Last Edit by PRAVEENA Thacker on 07/04/23 15:13 Results Reviewed Results Reviewed: Laboratory Last Values Hgb A1c (Clinic) 6.3 % (4.0-6.0) H 07/04/23 14:48 Assessment and Plan Assessment & Plan (1) Hypertension: Code(s): I10 - Essential (primary) hypertension Qualifiers: Hypertension type: primary hypertension Qualified Code(s): I10 - Essential (primary) hypertension Plan: Patient's blood pressure elevated today in office. Will add on hydrochlorothiazide to his blood pressure med regime for better blood pressure control. Advised to monitor blood pressure at home with goal blood pressure to be below 140/90 (2) Diaphragmatic hernia: Code(s): K44.9 - Diaphragmatic hernia without obstruction or gangrene Qualifiers: Obstruction and gangrene presence: with obstruction but without gangrene Qualified Code(s): K44.0 - Diaphragmatic hernia with obstruction, without gangrene Plan: Does have a small diaphragmatic hernia noted on barium swallow. He does report GERD symptoms and would like evaluation for surgical fix of his hernia. Did discuss the small nature of his hernia which may not need a surgical fix. Patient does understand though would like evaluation anyway (3) Hyperlipidemia: Code(s): E78.5 - Hyperlipidemia, unspecified Qualifiers: Hyperlipidemia type: pure hypercholesterolemia Qualified Code(s): E78.00 - Pure hypercholesterolemia, unspecified Plan: Patient's most recent lipid panel showing elevated total cholesterol and LDL. Has been on pravastatin 10 mg. Will recheck lipid panel to ensure appropriate total cholesterol and LDL. Goal LDL to be below 130 (4) Bipolar disorder: Code(s): F31.9 - Bipolar disorder, unspecified Qualifiers: Active/Remission status: in full remission Most recent bipolar episode type: unspecified type Qualified Code(s): F31.70 - Bipolar disorder, currently in remission, most recent episode unspecified Plan: Patient continues to follow a mental health therapist and a psychiatrist whom manages his mental health medication including his mood stabilizer. (5) Obesity: Code(s): E66.9 - Obesity, unspecified Qualifiers: Obesity type: due to excess calories Obesity classification: adult class 2 (BMI 35 - 39.9) Serious obesity comorbidity presence: with serious comorbidity Body mass index: BMI 36.0-36.9 Qualified Code(s): E66.01 - Morbid (severe) obesity due to excess calories; Z68.36 - Body mass index [BMI] 36.0-36.9, adult Plan: Patient does understand his BMI is over 30 will work on being more physically active and adapt to better eating habits to reduce his weight. He is interested in speaking with a passenger tire builder about better eating habits. (6) Anxiety: Code(s): F41.9 - Anxiety disorder, unspecified Plan: Patient's HIRA-7 score positive for anxiety which has been existing condition for him. Again patient is followed by mental health therapist and a psychiatrist who manages his mental health medications. Orders: Orders AMB Hemoglobin A1c 07/04/23 R73.03 - Prediabetes Lipid Panel 07/04/23 E78.00 - Pure hypercholesterolemia, unspecified Microalbumin, Random (w Creat) 07/04/23 I10 - Essential (primary) hypertension Comprehensive [place]. Panel Fast 07/04/23 I10 - Essential (primary) hypertension Prostate Specific Antigen Scr 07/04/23 I10 - Essential (primary) hypertension, Z12.5 - Encounter for screening for malignant neoplasm of prostate Referrals Thoracic Surgery Referral K44.0 - Diaphragmatic hernia with obstruction, without gangrene Medications: New metformin 500 mg PO DAILY 90 days 90 tabs 1RF R73.03 - Prediabetes hydrochlorothiazide 12.5 mg PO DAILY 90 days 90 tabs 1RF I10 - Essential (primary) hypertension Coding Level of Care Code Est Pt Level 4 (25583) Diagnoses Primary hypertension I10 Hypertension type: primary hypertension Diaphragmatic hernia with obstruction, without gangrene K44.0 Obstruction and gangrene presence: with obstruction but without gangrene Pure hypercholesterolemia E78.00 Hyperlipidemia type: pure hypercholesterolemia Bipolar disorder in full remission, most recent episode unspecified type F31.70 Active/Remission status: in full remission Most recent bipolar episode type: unspecified type Class 2 severe obesity due to excess calories with serious comorbidity and body mass index (BMI) of 36.0 to 36.9 in adult E66.01; Z68.36 Obesity type: due to excess calories Obesity classification: adult class 2 (BMI 35 - 39.9) Serious obesity comorbidity presence: with serious comorbidity Body mass index: BMI 36.0-36.9 Anxiety F41.9 Additional Codes HIRA-7 Assessment Billing - HIRA-7 Assessment Tool: HIRA-7 Assessment [id number] ([id number])
== END 2023-07-04 15:38 | disposition home or self-care (01) ==
PROVIDERS: PCP Physician Assistant; Visit Provider Physician Assistant
DX: I10 Essential (primary) hypertension (principal); F31.70 Bipolar disorder, currently in remission, most recent episode unspecified; E66.01 Morbid (severe) obesity due to excess calories; Z68.36 Body mass index [BMI] 36.0-36.9, adult; Z87.891 Personal history of nicotine dependence; K44.0 Diaphragmatic hernia with obstruction, without gangrene; E78.00 Pure hypercholesterolemia, unspecified; F41.9 Anxiety disorder, unspecified
CPT/HCPCS: 83036; 99214

== ENCOUNTER 2024-06-19 14:54 | Outpatient (AMB) | payer OTHER, SELFPAY ==
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
[2024-06-19 14:59] VITALS: BP 124/92; PULSE 110; TEMP 36.3; O2SAT 97; BMI 35.7
== END 2024-06-19 15:45 | disposition home or self-care (01) ==
PROVIDERS: PCP Physician Assistant; Visit Provider Physician Assistant
DX: M54.16 Radiculopathy, lumbar region (principal); S06.9X5D Unspecified intracranial injury with loss of consciousness greater than 24 hours with return to pre-existing conscious level, subsequent encounter; F31.70 Bipolar disorder, currently in remission, most recent episode unspecified; Z68.35 Body mass index [BMI] 35.0-35.9, adult; I10 Essential (primary) hypertension; E78.00 Pure hypercholesterolemia, unspecified; E66.812 Obesity, class 2; Z23 Encounter for immunization; Z13.1 Encounter for screening for diabetes mellitus

== ENCOUNTER → 2024-06-19 14:54 | Outpatient (BNVA) | payer OTHER, SELFPAY | PROVIDERS: PCP Physician Assistant; Visit Provider Physician Assistant | DX: Z23 Encounter for immunization (principal); M54.16 Radiculopathy, lumbar region; S06.9X5D Unspecified intracranial injury with loss of consciousness greater than 24 hours with return to pre-existing conscious level, subsequent encounter; F31.70 Bipolar disorder, currently in remission, most recent episode unspecified; E78.00 Pure hypercholesterolemia, unspecified; I10 Essential (primary) hypertension; E66.812 Obesity, class 2 | CPT/HCPCS: 83036; 90471; 90656; 96127; 99212 ==

== ENCOUNTER 2024-07-09 14:25 | Outpatient (AMB) | payer MEDICAID, SELFPAY ==
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
[2024-07-09 14:37] VITALS: BP 136/84; PULSE 112; RESP 16; O2SAT 92; BMI 35.6
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
--- OUTSIDE RECORDS SUMMARY | 2024-07-09 15:40 | XMS_ITS | Encounter Summary ---
Author Organization [facility] Address [address] [place] [address] Care Team Providers Care Duck Farmer Name Role Phone Bruno Melo Primary Care Provider + Encounter Details Date Type Department Care Team (Late st Contact Info) Description 10/31/2023 Scanned Document [facility] [address] [place] [address] Juan Whelan PA [address] [place] [address] Social History Tobacco Use Types Packs/Day Years Used Date Smoking Tobacco: Never Assessed [facility] Utilities Answer Date Recorded In the past 12 months has th e electric, gas, oil, or water company threatened to shut off services in your [...] drinks on one occasion? Patient declined 10/21/2023 Hunger Vital Sign Answer Date Recorded Within [...] on file Sexual Orientation Not on file documented as of this encounter Plan of Treatment Not on file documented as of this encounter Visit Diagnoses Not on filedocumented in this encounter Additional Health Concerns Infection Onset Date Last Indicated Resolved Time R/O Respiratory Virus 11/24/2023 11/24/20232023 7:17 PM EDT R/O COVID-19 11/24/2023 11/24/2023 11/24/2023 7:17 PM EDT R/O Respiratory Virus 02/05/2024 02/05/20242023 5:42 PM EDT R/O COVID-19 02/05/2024 02/05/2024 02/05/2024 5:42 PM EDT documented as of this encounter Care Teams Duck Farmer Relationship Specialty Start Date End Date Bruno Melo PA [address] [place] [address] [place] [address] PCP - General 11/22/23 documented as of this encounter
--- OUTSIDE RECORDS SUMMARY | 2024-07-09 15:40 | XMS_ITS ---
Author Name [facility] Organization Unknown Results Test Name/Text Value Interpretation Date Range Source Valproate SerPl-mCnc 77.7ug/mL Normal [id number] 50 - 100 [facility] AST/ALT SerPl-cRto 0.8 Normal [id number] - [facility] Direct SerPl-mCnc 0.2mg/dL Normal [id number] - [facility] ALP SerPl-cCnc 67U/L Normal [id number] 9 - 122 [facility] ALT SerPl w/o P-5'-P-cCnc 25U/L Normal [id number] 9 - 59 [facility] AST SerPl w P-5'-P-cCnc 20U/L Normal [id number] 10 - 35 [facility] Bil[facility]ub SerPl-mCnc 0.2mg/dL Normal [id number] - [facility] BUN SerPl-mCnc 12mg/dL Normal [id number] 6 - 20 [facility] Creat SerPl-mCnc 0.6mg/dL Normal [id number] 0.4 - 1.3 [facility] Anion Gap3 SerPl-sCnc 8 Normal [id number] 7 - 17 [facility] GFR/BSA.pred SerPlBld UKQ-GRN-EoQNfy 60mL/min/1.73m2 Normal 258859995015 - [facility] HCO3 SerPl-sCnc 29mmol/L Normal [id number] 20 - 30 [facility] Glucose SerPl-mCnc 93mg/dL Normal [id number] 70 - 100 [facility] BUN/Creat SerPl 20 Normal [id number] 8 - 23 [facility] Chloride SerPl-sCnc 104mmol/L Normal [id number] 98 - 10 7 [facility] Calcium SerPl-mCnc 9.2mg/dL Normal [id number] 8.8 - 10.2 [facility] Sodium SerPl-sCnc 141mmol/L Normal 136 - 144 [facility] Potassium SerPl-sCnc 3.8mmol/L Normal [id number] 3.3 - 5.3 [facility] Hgb Bld-mCnc 10.7g/dL Below low normal 596802483331 13.2 - 17.1 [facility] MCHC RBC Auto-mCnc 32.3g/dL Normal [id number] 31 - 36 [facility] PMV Bld Auto 11.9fL Normal [id number] 8 - 12 [facility] RBC # Bld Auto 3.74M/uL Below low normal [id number] 4 - 6 [facility] WBC # Bld Auto 3.5g0057/uL Below low normal [id number] 4 - 11 [facility] RDW RBC Auto-Rto 18.1% Above high normal 931331360782 11 - 15 [facility] MCV RBC Auto 88.5fL Normal [id number] 80 - 100 [facility] MCH RBC Qn Auto 28.6pg Normal [id number] 27 - 33 [facility] Neutrophils # Bld Auto 1.04x9456/uL Below low normal 519725971712 2 - 7.6 [facility] Hct VFr Bld Auto 33.1% Below low normal [id number] 38. 5 - 50 [facility] Platelet # Bld Auto 079g2474/uL Normal [id number] 150 - 420 [facility] BUN SerPl-mCnc 11mg/dL Normal [id number] 6 - 20 [facility] Creat SerPl-mCnc 0.59mg/dL Normal 0.4 - 1.3 [facility] Anion Gap3 SerPl-sCnc 9 Normal [id number] 7 - 17 [facility] GFR/BSA.pred SerPlBld VVT-QCM-OrVNgo 60mL/min/1.73m2 Normal - [facility] HCO3 SerPl-sCnc 30mmol/L Normal [id number] 20 - 30 [facility] Glucose SerPl-mCnc 109mg/dL Above high normal 722506183757 70 - 100 [facility] BUN/Creat SerPl 18.6 Normal [id number] 8 - 23 [facility] Chloride SerPl-sCnc 104mmol/L Normal [id number] 98 - 10 7 [facility] Calcium SerPl-mCnc 9.4mg/dL Normal 355689542334 8.8 - 10.2 [facility] Sodium SerPl-sCnc 143mmol/L Normal [id number] 136 - 144 [facility] Potassium SerPl-sCnc 3.7mmol/L Normal [id number] 3.3 - 5.3 [facility] Hgb Bld-mCnc 11.3g/dL Below low normal 984846697182 13.2 - 17.1 [facility] MCHC RBC Auto-mCnc 30.9g/dL Below low normal 578852235115 3 1 - 36 [facility] PMV Bld Auto 12.2fL Above high normal [id number] 8 - 12 [facility] RBC # Bld Auto 4.13M/uL Normal [id number] 4 - 6 [facility] WBC # Bld Auto 4.0f2582/uL Normal [id number] 4 - 11 [facility] RDW RBC Auto-Rto 18.3% Above high normal 847163150152 11 - 15 [facility] MCV RBC Auto 88.6fL Normal [id number] 80 - 100 [facility] MCH RBC Qn Auto 27.4pg Normal [id number] 27 - 33 [facility] Neutrophils # Bld Auto 2.39p8186/uL Normal [id number] 2 - 7.6 [facility] Hct VFr Bld Auto 36.6% Below low normal [id number] 38. 5 - 50 [facility] Platelet # Bld Auto 032r0675/uL Normal [id number] 150 - 420 [facility] BUN SerPl-mCnc 10mg/dL Normal [id number] 6 - 20 [facility] Creat SerPl-mCnc 0.56mg/dL Normal 0.4 - 1.3 [facility] Anion Gap3 SerPl-sCnc 7 Normal 7 - 17 [facility] GFR/BSA.pred SerPlBld QAH-YFQ-JwPSio 60mL/min/1.73m2 Normal [id number] - [facility] HCO3 SerPl-sCnc 34mmol/L Above high normal 20 - 30 [facility] Glucose SerPl-mCnc 92mg/dL Normal 70 - 100 [facility] BUN/Creat SerPl 17.9 Normal 8 - 23 [facility] Chloride SerPl-sCnc 103mmol/L Normal 98 - 10 7 [facility] Calcium SerPl-mCnc 9.1mg/dL Normal 8.8 - 10.2 [facility] Sodium SerPl-sCnc 144mmol/L Normal 136 - 144 [facility] Potassium SerPl-sCnc 3.4mmol/L Normal 3.3 - 5.3 [facility] Hgb Bld-mCnc 10.2g/dL Below low normal [id number] 13.2 - 17.1 [facility] MCHC RBC Auto-mCnc 30.7g/dL Below low normal 050813726095 3 1 - 36 [facility] PMV Bld Auto 11.9fL Normal [id number] 8 - 12 [facility] RBC # Bld Auto 3.76M/uL Below low normal [id number] 4 - 6 [facility] WBC # Bld Auto 4.6r2558/uL Normal [id number] 4 - 11 [facility] RDW RBC Auto-Rto 17.8% Above high normal [id number] 11 - 15 [facility] MCV RBC Auto 88.3fL Normal 592268480670 80 - 100 [facility] MCH RBC Qn Auto 27.1pg Normal [id number] 27 - 33 [facility] Neutrophils # Bld Auto 1.35l0838/uL Below low normal 723244412815 2 - 7.6 [facility] Hct VFr Bld Auto 33.2% Below low normal [id number] 38. 5 - 50 [facility] Platelet # Bld Auto 039d9940/uL Normal [id number] 150 - 420 [facility] BUN SerPl-mCnc 12mg/dL Normal 555833441884 6 - 20 [facility] Creat SerPl-mCnc 0.53mg/dL Normal [id number] 0.4 - 1.3 [facility] Anion Gap3 SerPl-sCnc 5 Below low normal [id number] 7 - 17 [facility] GFR/BSA.pred SerPlBld WXV-IPR-FnXXvi 60mL/min/1.73m2 Normal [id number] - [facility] HCO3 SerPl-sCnc 36mmol/L Above high normal [id number] 20 - 30 [facility] Glucose SerPl-mCnc 90mg/dL Normal [id number] 70 - 100 [facility] BUN/Creat SerPl 22.6 Normal [id number] 8 - 23 [facility] Chloride SerPl-sCnc 104mmol/L Normal 695415371127 98 - 10 7 [facility] Calcium SerPl-mCnc 9mg/dL Normal 366673259646 8.8 - 10.2 [facility] Sodium SerPl-sCnc 145mmol/L Above high normal 882832633652 1 36 - 144 [facility] Potassium SerPl-sCnc 3.4mmol/L Normal [id number] 3.3 - 5.3 [facility] Hgb Bld-mCnc 10.5g/dL Below low normal 831242213383 13.2 - 17.1 [facility] Eosinophil # Bld Auto 0.47i7868/uL Normal 442532093454 0 - 1 [facility] MCHC RBC Auto-mCnc 30.8g/dL Below low normal 048121889747 3 1 - 36 [facility] PMV Bld Auto 12fL Normal [id number] 8 - 12 [facility] Basophils/leuk NFr Bld Auto 0.9% Normal 160597156549 0 - 1.4 [facility] Monocytes/leuk NFr Bld Auto 15.9% Above high normal [id number] 4 - 12 [facility] RDW RBC Auto-Rto 18.3% Above high normal 162349529534 11 - 15 [facility] Monocytes # Bld Auto 0.81u3908/uL Normal [id number] 0 - 1 [facility] Basophils # Bld Auto 0.95k9646/uL Normal [id number] 0 - 1 [facility] Imm Granulocytes # Bld Auto 0.90q4981/uL Normal 923076816581 0 - 0.3 [facility] Neutrophils # Bld Auto 1.61t7507/uL Below low normal [id number] 2 - 7.6 [facility] Hct VFr Bld Auto 34.1% Below low normal [id number] 38. 5 - 50 [facility] Lymphocytes/leuk NFr Bld Auto 52% Above high normal [id number] 17 - 50 [facility] Lymphocytes # Bld Auto 1.4c4813/uL Normal [id number] 0.6 - 3.7 [facility] nRBC/100 WBC Bld Auto-Rto 0% Normal [id number] 0 - 1 [facility] RBC # Bld Auto 3.84M/uL Below low normal 689467307589 4 - 6 [facility] Neutrophils/leuk NFr Bld Auto 30% Below low normal 246833101672 39 - 72 [facility] Eosinophil/leuk NFr Bld Auto 0.9% Normal [id number] 0 - 5 [facility] Imm Granulocytes/leuk NFr Bld Auto 0.3% Normal [id number] 0 - 1 [facility] WBC # Bld Auto 3.6n2337/uL Below low normal [id number] 4 - 11 [facility] nRBC # Bld Auto 2i0154/uL Normal [id number] 0 - 1 [facility] MCV RBC Auto 88.8fL Normal [id number] 80 - 100 [facility] MCH RBC Qn Auto 27.3pg Normal [id number] 27 - 33 [facility] Platelet # Bld Auto 114j7719/uL Normal [id number] 150 - 420 [facility] BKR ALLENS TEST PERFORMED (ARTERIAL BG DOMINGO QUESTION) Yes Normal 045659603977 [facility] B[facility] OXYGEN MODE (ARTERIAL BG DOMINGO QUESTION) Aerosol Mask/Collar Normal 193342034620 [facility] BKR SP02 (ARTERIAL BG DOMINGO QUESTION) 98% Normal [facility] pCO2 BldA 41mmHg Normal 32 - 48 [facility] HCO3 std BldA-sCnc 29.4mmol/L Above high normal 21 - 28 [facility] BKR FIO2 (ARTERIAL BG DOMINGO QUESTION) 28% Normal 203636001428 [facility] B[facility] LITER FLOW (ARTERIAL BG DOMINGO QUESTION) 6L/min Normal [facility] pH BldA 7.46units Above high normal 7.35 - 7.45 [facility] BKR TEMPERATURE (ARTERIAL BG DOMINGO QUESTION) 97.5Fahrenheit Normal [facility] pO2 BldA 95mmHg Normal 83 - 108 [facility] SaO2 % BldA 98% Normal 94 - [address] [address] BKR ACTUAL RESPIRATORY RATE (ARTERIAL BG DOMINGO QUESTION) 14breaths/min Normal [id number] [facility] Base excess std BldA Calc-sCnc 5mmol/L Above high normal - [facility] BUN SerPl-mCnc 13mg/dL Normal 6 - 20 [facility] Creat SerPl-mCnc 0.52mg/dL Normal 0.4 - 1.3 [facility] Anion Gap3 SerPl-sCnc 13 Normal 7 - 17 [facility] GFR/BSA.pred SerPlBld MCP-PKH-SqPQgy 60mL/min/1.73m2 Normal - [facility] HCO3 SerPl-sCnc 22mmol/L Normal 20 - 30 [facility] Glucose SerPl-mCnc 128mg/dL Above high normal 70 - 100 [facility] BUN/Creat SerPl 25 Above high normal 8 - 23 [facility] Chloride SerPl-sCnc 101mmol/L Normal 98 - 10 7 [facility] Calcium SerPl-mCnc 9.5mg/dL Normal 8.8 - 10.2 [facility] Sodium SerPl-sCnc 136mmol/L Normal 136 - 144 [facility] Potassium SerPl-sCnc 4.3mmol/L Normal 3.3 - 5.3 [facility] Hgb Bld-mCnc 12g/dL Below low normal 13.2 - 17.1 [facility] Eosinophil # Bld Auto 1a5457/uL Normal 0 - 1 [facility] MCHC RBC Auto-mCnc 30.9g/dL Below low normal 3 1 - 36 [facility] PMV Bld Auto 12.2fL Above high normal 8 - 12 [facility] Basophils/leuk NFr Bld Auto 0.2% Normal 0 - 1.4 [facility] Monocytes/leuk NFr Bld Auto 7.6% Normal 4 - 12 [facility] RDW RBC Auto-Rto 17.2% Above high normal 11 - 15 [facility] Monocytes # Bld Auto 0.49x1800/uL Normal [id number] 0 - 1 [facility] Basophils # Bld Auto 0.20w5583/uL Normal 0 - 1 [facility] Imm Granulocytes # Bld Auto 0.09r2679/uL Normal 0 - 0.3 [facility] Neutrophils # Bld Auto 3.79e9364/uL Normal 354120996624 2 - 7.6 [facility] Hct VFr Bld Auto 38.8% Normal 38.5 - 50 [facility] Lymphocytes/leuk NFr Bld Auto 24.4% Normal 17 - 50 [facility] Lymphocytes # Bld Auto 1.48f0665/uL Normal 0.6 - 3.7 [facility] nRBC/100 WBC Bld Auto-Rto 0% Normal [id number] 0 - 1 [facility] RBC # Bld Auto 4.47M/uL Normal 4 - 6 [facility] Neutrophils/leuk NFr Bld Auto 67.6% Normal 39 - 72 [facility] Eosinophil/leuk NFr Bld Auto 0% Normal 0 - 5 [facility] Imm Granulocytes/leuk NFr Bld Auto 0.2% Normal 0 - 1 [facility] WBC # Bld Auto 5.0w1661/uL Normal 4 - 11 [facility] nRBC # Bld Auto 6k4359/uL Normal 0 - 1 [facility] MCV RBC Auto 86.8fL Normal 80 - 100 [facility] MCH RBC Qn Auto 26.8pg Below low normal 27 - 33 [facility] Platelet # Bld Auto 092r6099/uL Normal 150 - 420 [facility] INR PPP 1.05 Normal 872430447215 0.86 - 1.13 [facility] Prothrombin time 11.5seconds Normal 398778581337 9.6 - 12.3 [facility] aPTT PPP 36.5seconds Above high normal 799434162459 23 - 31 [facility] BUN SerPl-mCnc 15mg/dL Normal [id number] 6 - 20 [facility] Creat SerPl-mCnc 0.59mg/dL Normal 426470413612 0.4 - 1.3 [facility] Anion Gap3 SerPl-sCnc 12 Normal 705795590443 7 - 17 [facility] GFR/BSA.pred SerPlBld RZY-FMS-QeITlb 60mL/min/1.73m2 Normal - [facility] HCO3 SerPl-sCnc 30mmol/L Normal [id number] 20 - 30 [facility] Glucose SerPl-mCnc 83mg/dL Normal 503793731845 70 - 100 [facility] BUN/Creat SerPl 25.4 Above high normal 683088334268 8 - 23 [facility] Chloride SerPl-sCnc 101mmol/L Normal 660757957097 98 - 10 7 [facility] Calcium SerPl-mCnc 9.1mg/dL Normal 887163783016 8.8 - 10.2 [facility] Sodium SerPl-sCnc 143mmol/L Normal [id number] 136 - 144 [facility] Potassium SerPl-sCnc 3.4mmol/L Normal 805851730773 3.3 - 5.3 [facility] Hgb Bld-mCnc 9.6g/dL Below low normal 731984629806 13.2 - 17.1 [facility] Eosinophil # Bld Auto 0.92g8083/uL Normal [id number] 0 - 1 [facility] MCHC RBC Auto-mCnc 31.2g/dL Normal 060713005670 31 - 36 [facility] PMV Bld Auto 12fL Normal 645737019721 8 - 12 [facility] Basophils/leuk NFr Bld Auto 0.9% Normal [id number] 0 - 1.4 [facility] Monocytes/leuk NFr Bld Auto 11.6% Normal 084543697324 4 - 12 [facility] RDW RBC Auto-Rto 17.4% Above high normal 089041285885 11 - 15 [facility] Monocytes # Bld Auto 0.92q9872/uL Normal 426406809571 0 - 1 [facility] Basophils # Bld Auto 0.85z0434/uL Normal [id number] 0 - 1 [facility] Imm Granulocytes # Bld Auto 0.99t1941/uL Normal [id number] 0 - 0.3 [facility] Neutrophils # Bld Auto 1.41h2573/uL Below low normal 403217219997 2 - 7.6 [facility] Hct VFr Bld Auto 30.8% Below low normal 466017992576 38. 5 - 50 [facility] Lymphocytes/leuk NFr Bld Auto 46.5% Normal 873613652327 17 - 50 [facility] Lymphocytes # Bld Auto 2.27j2812/uL Normal 572550487877 0.6 - 3.7 [facility] nRBC/100 WBC Bld Auto-Rto 0% Normal [id number] 0 - 1 [facility] RBC # Bld Auto 3.55M/uL Below low normal 228674925718 4 - 6 [facility] Neutrophils/leuk NFr Bld Auto 39.9% Normal 942281996031 39 - 72 [facility] Eosinophil/leuk NFr Bld Auto 0.9% Normal [id number] 0 - 5 [facility] Imm Granulocytes/leuk NFr Bld Auto 0.2% Normal 294879975522 0 - 1 [facility] WBC # Bld Auto 4.5y0525/uL Normal [id number] 4 - 11 [facility] nRBC # Bld Auto 6k7825/uL Normal 815860337585 0 - 1 [facility] MCV RBC Auto 86.8fL Normal 417032571601 80 - 100 [facility] MCH RBC Qn Auto 27pg Normal 051312433293 27 - 33 [facility] Platelet # Bld Auto 633f1979/uL Normal [id number] 150 - 420 [facility] Creat SerPl-mCnc 0.58mg/dL Normal 978661247135 0.4 - 1.3 [facility] GFR/BSA.pred SerPlBld DET-NFM-CoSIvj 60mL/min/1.73m2 Normal [id number] - [facility] ALT SerPl w/o P-5'-P-cCnc 9U/L Normal [id number] 9 - 59 [facility] Albumin SerPl BCG-mCnc 3.1g/dL Below low normal 782199744458 3.6 - 5.1 [facility] Chloride SerPl-sCnc 102mmol/L Normal [id number] 98 - 10 7 [facility] AST SerPl w P-5'-P-cCnc 16U/L Normal 10 - 35 [facility] Bilirub SerPl-mCnc 0.2mg/dL Normal 122224291561 - [facility] Sodium SerPl-sCnc 140mmol/L Normal 136 - 144 [facility] Potassium SerPl-sCnc 3.3mmol/L Normal [id number] 3.3 - 5.3 [facility] Albumin/Glob SerPl 1.1 Normal 354350791116 1 - 2.2 [facility] BUN SerPl-mCnc 14mg/dL Normal 481702588046 6 - 20 [facility] Anion Gap3 SerPl-sCnc 8 Normal 753666069261 7 - 17 [facility] AST/ALT SerPl-cRto 1.8 Normal - [facility] ALP SerPl-cCnc 72U/L Normal [id number] 9 - 122 [facility] Globulin Plas-mCnc 2.9g/dL Normal 132607098715 2 - 3.9 [facility] HCO3 SerPl-sCnc 30mmol/L Normal 430954202892 20 - 30 [facility] Glucose SerPl-mCnc 163mg/dL Above high normal 848129604001 70 - 100 [facility] BUN/Creat SerPl 24.1 Above high normal [id number] 8 - 23 [facility] Calcium SerPl-mCnc 9.1mg/dL Normal 375713100103 8.8 - 10.2 [facility] Prot SerPl-mCnc 6g/dL Normal 165333441500 5.9 - 8.3 [facility] Magnesium SerPl-mCnc 1.8mg/dL Normal 896743098002 1.7 - 2.4 [facility] Hgb Bld-mCnc 8.8g/dL Below low normal 154903448315 13.2 - 17.1 [facility] Eosinophil # Bld Auto 0.68w2707/uL Normal 463689329590 0 - 1 [facility] MCHC RBC Auto-mCnc 31.7g/dL Normal 401555826718 31 - 36 [facility] PMV Bld Auto 12fL Normal 959359058868 8 - 12 [facility] Basophils/leuk NFr Bld Auto 0.2% Normal 630542543839 0 - 1.4 [facility] Monocytes/leuk NFr Bld Auto 5.1% Normal 609113563590 4 - 12 [facility] RDW RBC Auto-Rto 16.9% Above high normal [id number] 11 - 15 [facility] Monocytes # Bld Auto 0.33i2521/uL Normal 509519797310 0 - 1 [facility] Basophils # Bld Auto 0.72u0048/uL Normal 733678564222 0 - 1 [facility] Imm Granulocytes # Bld Auto 0.81n8272/uL Normal 051244298065 0 - 0.3 [facility] Neutrophils # Bld Auto 3.98p7562/uL Normal 2 - 7.6 [facility] Hct VFr Bld Auto 27.8% Below low normal 38. 5 - 50 [facility] Lymphocytes/leuk NFr Bld Auto 17.2% Normal 17 - 50 [facility] Lymphocytes # Bld Auto 0.07s1947/uL Normal 0.6 - 3.7 [facility] nRBC/100 WBC Bld Auto-Rto 0% Normal 0 - 1 [facility] RBC # Bld Auto 3.23M/uL Below low normal 4 - 6 [facility] Neutrophils/leuk NFr Bld Auto 76.9% Above high normal 39 - 72 [facility] Eosinophil/leuk NFr Bld Auto 0.2% Normal 0 - 5 [facility] Imm Granulocytes/leuk NFr Bld Auto 0.4% Normal 0 - 1 [facility] WBC # Bld Auto 4.1y8105/uL Normal 4 - 11 [facility] nRBC # Bld Auto 4o4180/uL Normal 0 - 1 [facility] MCV RBC Auto 86.1fL Normal 80 - 100 [facility] MCH RBC Qn Auto 27.2pg Normal 27 - 33 [facility] Platelet # Bld Auto 777a6155/uL Normal 150 - 420 [facility] Lactate SerPl-sCnc 1mmol/L Normal 0.5 - 2. 2 [facility] BUN SerPl-mCnc 11mg/dL Normal 6 - 20 [facility] Creat SerPl-mCnc 0.54mg/dL Normal 0.4 - 1.3 [facility] Anion Gap3 SerPl-sCnc 10 Normal 7 - 17 [facility] GFR/BSA.pred SerPlBld HMG-RPU-RtKVhe 60mL/min/1.73m2 Normal - [facility] HCO3 SerPl-sCnc 28mmol/L Normal 20 - 30 [facility] Glucose SerPl-mCnc 115mg/dL Above high normal 70 - 100 [facility] BUN/Creat SerPl 20.4 Normal 8 - 23 [facility] Chloride SerPl-sCnc 102mmol/L Normal 98 - 10 7 [facility] Calcium SerPl-mCnc 9.4mg/dL Normal 8.8 - 10.2 [facility] Sodium SerPl-sCnc 140mmol/L Normal 136 - 144 [facility] Potassium SerPl-sCnc 3.7mmol/L Normal 3.3 - 5.3 [facility] AST/ALT SerPl-cRto 1.4 Normal - [facility] Bil[facility]ub Direct SerPl-mCnc 0.2mg/dL Normal - [facility] ALP SerPl-cCnc 85U/L Normal 9 - 122 [facility] Globulin Plas-mCnc 3.3g/dL Normal 2 - 3.9 [facility] ALT SerPl w/o P-5'-P-cCnc 12U/L Normal 9 - 59 [facility] Albumin SerPl BCG-mCnc 3.1g/dL Below low normal 3.6 - 5.1 [facility] AST SerPl w P-5'-P-cCnc 17U/L Normal 10 - 35 [facility] Bilirub SerPl-mCnc 0.2mg/dL Normal 394774573156 - [facility] Albumin/Glob SerPl 0.9 Below low normal 656031910318 1 - 2.2 [facility] Prot SerPl-mCnc 6.4g/dL Normal 5.9 - 8.3 [facility] Hgb Bld-mCnc 9.2g/dL Below low normal 361348359688 13.2 - 17.1 [facility] Eosinophil # Bld Auto 0.42w8749/uL Normal [id number] 0 - 1 [facility] MCHC RBC Auto-mCnc 32.1g/dL Normal 939028636935 31 - 36 [facility] PMV Bld Auto 11.7fL Normal 724101114513 8 - 12 [facility] Basophils/leuk NFr Bld Auto 0.4% Normal 0 - 1.4 [facility] Monocytes/leuk NFr Bld Auto 12% Normal 4 - 12 [facility] RDW RBC Auto-Rto 16.5% Above high normal 989753625324 11 - 15 [facility] Monocytes # Bld Auto 0.21t2480/uL Normal 610488314914 0 - 1 [facility] Basophils # Bld Auto 0.62y5305/uL Normal 736976893865 0 - 1 [facility] Imm Granulocytes # Bld Auto 0.09n5785/uL Normal 879692274020 0 - 0.3 [facility] Neutrophils # Bld Auto 2.17i0474/uL Normal 829328302047 2 - 7.6 [facility] Hct VFr Bld Auto 28.7% Below low normal 047240805270 38. 5 - 50 [facility] Lymphocytes/leuk NFr Bld Auto 27.9% Normal [id number] 17 - 50 [facility] Lymphocytes # Bld Auto 1.71z8385/uL Normal [id number] 0.6 - 3.7 [facility] nRBC/100 WBC Bld Auto-Rto 0% Normal 392746806410 0 - 1 [facility] RBC # Bld Auto 3.31M/uL Below low normal 500541837107 4 - 6 [facility] Neutrophils/leuk NFr Bld Auto 57.9% Normal 39 - 72 [facility] Eosinophil/leuk NFr Bld Auto 1.1% Normal 0 - 5 [facility] Imm Granulocytes/leuk NFr Bld Auto 0.7% Normal 0 - 1 [facility] WBC # Bld Auto 4.2a0487/uL Normal 4 - 11 [facility] nRBC # Bld Auto 3w2380/uL Normal 0 - 1 [facility] MCV RBC Auto 86.7fL Normal 80 - 100 [facility] MCH RBC Qn Auto 27.8pg Normal 27 - 33 [facility] Platelet # Bld Auto 614b4029/uL Normal 150 - 420 [facility] pCO2 BldA 39mmHg Normal 32 - 48 [facility] HCO3 std BldA-sCnc 30.3mmol/L Above high normal 21 - 28 [facility] pH BldA 7.5units Above high normal 7.35 - 7.45 [facility] BKR TEMPERATURE (ARTERIAL BG DOMINGO QUESTION) 98.4Fahrenheit Normal [facility] pO2 BldA 121mmHg Above high normal 83 - 108 [facility] SaO2 % BldA 98% Normal 94 - [address] Base excess std BldA Calc-sCnc 7mmol/L Above high normal - [facility] Magnesium SerPl-mCnc 1.9mg/dL Normal 1.7 - 2.4 [facility] BUN SerPl-mCnc 11mg/dL Normal 6 - 20 [facility] Creat SerPl-mCnc 0.52mg/dL Normal 0.4 - 1.3 [facility] Anion Gap3 SerPl-sCnc 11 Normal 7 - 17 [facility] GFR/BSA.pred SerPlBld IOV-XRK-TrGFdj 60mL/min/1.73m2 Normal - [facility] HCO3 SerPl-sCnc 29mmol/L Normal 20 - 30 [facility] Glucose SerPl-mCnc 93mg/dL Normal 70 - 100 [facility] BUN/Creat SerPl 21.2 Normal 8 - 23 [facility] Chloride SerPl-sCnc 102mmol/L Normal 98 - 10 7 [facility] Calcium SerPl-mCnc 9.4mg/dL Normal 8.8 - 10.2 [facility] Sodium SerPl-sCnc 142mmol/L Normal 136 - 144 [facility] Potassium SerPl-sCnc 3.7mmol/L Normal 3.3 - 5.3 [facility] Hgb Bld-mCnc 10.6g/dL Below low normal [id number] 13.2 - 17.1 [facility] Eosinophil # Bld Auto 0.35m8490/uL Normal [id number] 0 - 1 [facility] MCHC RBC Auto-mCnc 31.6g/dL Normal [id number] 31 - 36 [facility] PMV Bld Auto 10.9fL Normal [id number] 8 - 12 [facility] Basophils/leuk NFr Bld Auto 0.7% Normal 588230573624 0 - 1.4 [facility] Monocytes/leuk NFr Bld Auto 13% Above high normal [id number] 4 - 12 [facility] RDW RBC Auto-Rto 16.5% Above high normal [id number] 11 - 15 [facility] Monocytes # Bld Auto 0.57x8565/uL Normal 910339461041 0 - 1 [facility] Basophils # Bld Auto 0.54e9717/uL Normal 850392435031 0 - 1 [facility] Imm Granulocytes # Bld Auto 0.00p1894/uL Normal 534797466880 0 - 0.3 [facility] Neutrophils # Bld Auto 3.44j0557/uL Normal [id number] 2 - 7.6 [facility] Hct VFr Bld Auto 33.5% Below low normal 708312814004 38. 5 - 50 [facility] Lymphocytes/leuk NFr Bld Auto 26% Normal [id number] 17 - 50 [facility] Lymphocytes # Bld Auto 1.58o1596/uL Normal [id number] 0.6 - 3.7 [facility] nRBC/100 WBC Bld Auto-Rto 0% Normal 869576171454 0 - 1 [facility] RBC # Bld Auto 3.83M/uL Below low normal 977223241763 4 - 6 [facility] Neutrophils/leuk NFr Bld Auto 57.8% Normal [id number] 39 - 72 [facility] Eosinophil/leuk NFr Bld Auto 1.8% Normal 522871053745 0 - 5 [facility] Imm Granulocytes/leuk NFr Bld Auto 0.7% Normal 671430144136 0 - 1 [facility] WBC # Bld Auto 6.3t2204/uL Normal 872822941435 4 - 11 [facility] nRBC # Bld Auto 3c0473/uL Normal 800707042529 0 - 1 [facility] MCV RBC Auto 87.5fL Normal 600820385774 80 - 100 [facility] MCH RBC Qn Auto 27.7pg Normal [id number] 27 - 33 [facility] Platelet # Bld Auto 493m2957/uL Normal [id number] 150 - 420 [facility] Creat SerPl-mCnc 0.49mg/dL Normal [id number] 0.4 - 1.3 [facility] GFR/BSA.pred SerPlBld SUQ-JJE-EnGNpe 60mL/min/1.73m2 Normal [id number] - [facility] ALT SerPl w/o P-5'-P-cCnc 16U/L Normal [id number] 9 - 59 [facility] Albumin SerPl BCG-mCnc 3g/dL Below low normal [id number] 3.6 - 5.1 [facility] Chloride SerPl-sCnc 100mmol/L Normal 950161741407 98 - 10 7 [facility] AST SerPl w P-5'-P-cCnc 22U/L Normal [id number] 10 - 35 [facility] Bilirub SerPl-mCnc 0.2mg/dL Normal 520989060052 - [facility] Sodium SerPl-sCnc 140mmol/L Normal [id number] 136 - 144 [facility] Potassium SerPl-sCnc 3.6mmol/L Normal [id number] 3.3 - 5.3 [facility] Albumin/Glob SerPl 1 Normal 014575037351 1 - 2.2 [facility] BUN SerPl-mCnc 12mg/dL Normal 570099498861 6 - 20 [facility] Anion Gap3 SerPl-sCnc 9 Normal 353504441145 7 - 17 [facility] AST/ALT SerPl-cRto 1.4 Normal 702371446117 - [facility] ALP SerPl-cCnc 81U/L Normal 338440401285 9 - 122 [facility] Globulin Plas-mCnc 3.1g/dL Normal 100012698100 2 - 3.9 [facility] HCO3 SerPl-sCnc 31mmol/L Above high normal 322300469110 20 - 30 [facility] Glucose SerPl-mCnc 99mg/dL Normal [id number] 70 - 100 [facility] BUN/Creat SerPl 24.5 Above high normal 153201946145 8 - 23 [facility] Calcium SerPl-mCnc 9.3mg/dL Normal 840365288432 8.8 - 10.2 [facility] Prot SerPl-mCnc 6.1g/dL Normal 419235385060 5.9 - 8.3 [facility] Hgb Bld-mCnc 9.6g/dL Below low normal 014200001392 13.2 - 17.1 [facility] Eosinophil # Bld Auto 0.94n2110/uL Normal 180658411125 0 - 1 [facility] MCHC RBC Auto-mCnc 31g/dL Normal [id number] 31 - 36 [facility] PMV Bld Auto 10.9fL Normal 254570344884 8 - 12 [facility] Basophils/leuk NFr Bld Auto 0.5% Normal 243886093872 0 - 1.4 [facility] Monocytes/leuk NFr Bld Auto 10.7% Normal 761854491497 4 - 12 [facility] RDW RBC Auto-Rto 16.4% Above high normal 750762711827 11 - 15 [facility] Monocytes # Bld Auto 0.9n2685/uL Normal 839155136185 0 - 1 [facility] Basophils # Bld Auto 0.69u6111/uL Normal 822064207423 0 - 1 [facility] Imm Granulocytes # Bld Auto 0.66j0653/uL Normal 914276988951 0 - 0.3 [facility] Neutrophils # Bld Auto 4.05d9946/uL Normal 022886341517 2 - 7.6 [facility] Hct VFr Bld Auto 31% Below low normal 288231610097 38. 5 - 50 [facility] Lymphocytes/leuk NFr Bld Auto 24.3% Normal 538226034565 17 - 50 [facility] Lymphocytes # Bld Auto 1.77v0041/uL Normal 591507861504 0.6 - 3.7 [facility] nRBC/100 WBC Bld Auto-Rto 0% Normal 768928198660 0 - 1 [facility] RBC # Bld Auto 3.61M/uL Below low normal 713406516443 4 - 6 [facility] Neutrophils/leuk NFr Bld Auto 62.1% Normal 688159984211 39 - 72 [facility] Eosinophil/leuk NFr Bld Auto 1.8% Normal 483674205410 0 - 5 [facility] Imm Granulocytes/leuk NFr Bld Auto 0.6% Normal 033753489116 0 - 1 [facility] WBC # Bld Auto 6.6n4890/uL Normal 262860339082 4 - 11 [facility] nRBC # Bld Auto 9r1553/uL Normal 098493481823 0 - 1 [facility] MCV RBC Auto 85.9fL Normal 659101310336 80 - 100 [facility] MCH RBC Qn Auto 26.6pg Below low normal 128428021920 27 - 33 [facility] Platelet # Bld Auto 051i8214/uL Above high normal 6234430001 48 150 - 420 [facility] NT-proBNP SerPl-mCnc 80pg/mL Normal 838033717511 - 125 [facility] Creat SerPl-mCnc 0.55mg/dL Normal 208825919974 0.4 - 1.3 [facility] GFR/BSA.pred SerPlBld IHQ-TPW-HqXTow 60mL/min/1.73m2 Normal [id number] - [facility] ALT SerPl w/o P-5'-P-cCnc 15U/L Normal 440970345795 9 - 59 [facility] Albumin SerPl BCG-mCnc 3.3g/dL Below low normal [id number] 3.6 - 5.1 [facility] Chloride SerPl-sCnc 99mmol/L Normal [id number] 98 - 10 7 [facility] AST SerPl w P-5'-P-cCnc 22U/L Normal [id number] 10 - 35 [facility] Bilirub SerPl-mCnc 0.2mg/dL Normal 421213604440 - [facility] Sodium SerPl-sCnc 143mmol/L Normal [id number] 136 - 144 [facility] Potassium SerPl-sCnc 3.5mmol/L Normal [id number] 3.3 - 5.3 [facility] Albumin/Glob SerPl 1 Normal 814162244801 1 - 2.2 [facility] BUN SerPl-mCnc 13mg/dL Normal [id number] 6 - 20 [facility] Anion Gap3 SerPl-sCnc 14 Normal [id number] 7 - 17 [facility] AST/ALT SerPl-cRto 1.5 Normal [id number] - [facility] ALP SerPl-cCnc 79U/L Normal [id number] 9 - 122 [facility] Globulin Plas-mCnc 3.4g/dL Normal [id number] 2 - 3.9 [facility] HCO3 SerPl-sCnc 30mmol/L Normal [id number] 20 - 30 [facility] Glucose SerPl-mCnc 95mg/dL Normal [id number] 70 - 100 [facility] BUN/Creat SerPl 23.6 Above high normal 173424365178 8 - 23 [facility] Calcium SerPl-mCnc 9.9mg/dL Normal [id number] 8.8 - 10.2 [facility] Prot SerPl-mCnc 6.7g/dL Normal 544770314321 5.9 - 8.3 [facility] Hgb Bld-mCnc 10g/dL Below low normal 771429805947 13.2 - 17.1 [facility] Eosinophil # Bld Auto 0.97r8979/uL Normal [id number] 0 - 1 [facility] MCHC RBC Auto-mCnc 31g/dL Normal [id number] 31 - 36 [facility] PMV Bld Auto 10.8fL Normal 763178161514 8 - 12 [facility] Basophils/leuk NFr Bld Auto 0.6% Normal 721307580398 0 - 1.4 [facility] Monocytes/leuk NFr Bld Auto 12.5% Above high normal 909991773051 4 - 12 [facility] RDW RBC Auto-Rto 16.2% Above high normal [id number] 11 - 15 [facility] Monocytes # Bld Auto 0.13d0798/uL Normal 733815522977 0 - 1 [facility] Basophils # Bld Auto 0.55j7932/uL Normal 251903971134 0 - 1 [facility] Imm Granulocytes # Bld Auto 0.58k5317/uL Normal 080060500062 0 - 0.3 [facility] Neutrophils # Bld Auto 2.39k5047/uL Normal 497976802662 2 - 7.6 [facility] Hct VFr Bld Auto 32.3% Below low normal 366910857823 38. 5 - 50 [facility] Lymphocytes/leuk NFr Bld Auto 30% Normal [id number] 17 - 50 [facility] Lymphocytes # Bld Auto 1.50c4620/uL Normal [id number] 0.6 - 3.7 [facility] nRBC/100 WBC Bld Auto-Rto 0% Normal 565271932978 0 - 1 [facility] RBC # Bld Auto 3.76M/uL Below low normal 580151141294 4 - 6 [facility] Neutrophils/leuk NFr Bld Auto 54.3% Normal 782395576661 39 - 72 [facility] Eosinophil/leuk NFr Bld Auto 1.3% Normal [id number] 0 - 5 [facility] Imm Granulocytes/leuk NFr Bld Auto 1.3% Above high normal 033270871852 0 - 1 [facility] WBC # Bld Auto 5.7l6823/uL Normal [id number] 4 - 11 [facility] nRBC # Bld Auto 9e8387/uL Normal [id number] 0 - 1 [facility] MCV RBC Auto 85.9fL Normal 649424174686 80 - 100 [facility] MCH RBC Qn Auto 26.6pg Below low normal 892030249907 27 - 33 [facility] Platelet # Bld Auto 067n3537/uL Above high normal 0699447752 41 150 - 420 [facility] Creat SerPl-mCnc 0.46mg/dL Normal [id number] 0.4 - 1.3 [facility] GFR/BSA.pred SerPlBld FKM-AXZ-KhUWgu 60mL/min/1.73m2 Normal [id number] - [facility] ALT SerPl w/o P-5'-P-cCnc 16U/L Normal [id number] 9 - 59 [facility] Albumin SerPl BCG-mCnc 2.9g/dL Below low normal 942196018857 3.6 - 5.1 [facility] Chloride SerPl-sCnc 100mmol/L Normal [id number] 98 - 10 7 [facility] AST SerPl w P-5'-P-cCnc 15U/L Normal [id number] 10 - 35 [facility] Bilirub SerPl-mCnc 0.2mg/dL Normal [id number] - [facility] Sodium SerPl-sCnc 140mmol/L Normal [id number] 136 - 144 [facility] Potassium SerPl-sCnc 3.7mmol/L Normal 683509991667 3.3 - 5.3 [facility] Albumin/Glob SerPl 0.8 Below low normal 506952489503 1 - 2.2 [facility] BUN SerPl-mCnc 12mg/dL Normal [id number] 6 - 20 [facility] Anion Gap3 SerPl-sCnc 7 Normal [id number] 7 - 17 [facility] AST/ALT SerPl-cRto 0.9 Normal [id number] - [facility] ALP SerPl-cCnc 80U/L Normal [id number] 9 - 122 [facility] Globulin Plas-mCnc 3.5g/dL Normal 480121502070 2 - 3.9 [facility] HCO3 SerPl-sCnc 33mmol/L Above high normal 974966562488 20 - 30 [facility] Glucose SerPl-mCnc 110mg/dL Above high normal 324037381270 70 - 100 [facility] BUN/Creat SerPl 26.1 Above high normal [id number] 8 - 23 [facility] Calcium SerPl-mCnc 9.3mg/dL Normal 132925099489 8.8 - 10.2 [facility] Prot SerPl-mCnc 6.4g/dL Normal 745052659130 5.9 - 8.3 [facility] Hgb Bld-mCnc 10.2g/dL Below low normal 655919664714 13.2 - 17.1 [facility] Eosinophil # Bld Auto 0.34o8166/uL Normal 211364954320 0 - 1 [facility] MCHC RBC Auto-mCnc 32.1g/dL Normal [id number] 31 - 36 [facility] PMV Bld Auto 10.8fL Normal 873522327275 8 - 12 [facility] Basophils/leuk NFr Bld Auto 0.7% Normal 027685282159 0 - 1.4 [facility] Monocytes/leuk NFr Bld Auto 14.5% Above high normal 986944937907 4 - 12 [facility] RDW RBC Auto-Rto 15.8% Above high normal 411412780957 11 - 15 [facility] Monocytes # Bld Auto 0.74c3384/uL Normal 844885466644 0 - 1 [facility] Basophils # Bld Auto 0.92q6581/uL Normal 953759684948 0 - 1 [facility] Imm Granulocytes # Bld Auto 0.18e4173/uL Normal [id number] 0 - 0.3 [facility] Neutrophils # Bld Auto 2.57f8448/uL Normal 059166985978 2 - 7.6 [facility] Hct VFr Bld Auto 31.8% Below low normal 789725485071 38. 5 - 50 [facility] Lymphocytes/leuk NFr Bld Auto 34% Normal [id number] 17 - 50 [facility] Lymphocytes # Bld Auto 1.74h7525/uL Normal 891983728533 0.6 - 3.7 [facility] nRBC/100 WBC Bld Auto-Rto 0% Normal [id number] 0 - 1 [facility] RBC # Bld Auto 3.7M/uL Below low normal [id number] 4 - 6 [facility] Neutrophils/leuk NFr Bld Auto 48.6% Normal 877456881252 39 - 72 [facility] Eosinophil/leuk NFr Bld Auto 1.8% Normal [id number] 0 - 5 [facility] Imm Granulocytes/leuk NFr Bld Auto 0.4% Normal 052665807877 0 - 1 [facility] WBC # Bld Auto 4.5n7978/uL Normal 950516055699 4 - 11 [facility] nRBC # Bld Auto 5p4121/uL Normal 868684133410 0 - 1 [facility] MCV RBC Auto 85.9fL Normal [id number] 80 - 100 [facility] MCH RBC Qn Auto 27.6pg Normal 358047942353 27 - 33 [facility] Platelet # Bld Auto 038s1778/uL Normal [id number] 150 - 420 [facility] Creat SerPl-mCnc 0.51mg/dL Normal [id number] 0.4 - 1.3 [facility] GFR/BSA.pred SerPlBld BGC-OUH-QaWIdt 60mL/min/1.73m2 Normal 522182502742 - [facility] ALT SerPl w/o P-5'-P-cCnc 11U/L Normal [id number] 9 - 59 [facility] Albumin SerPl BCG-mCnc 2.9g/dL Below low normal [id number] 3.6 - 5.1 [facility] Chloride SerPl-sCnc 100mmol/L Normal [id number] 98 - 10 7 [facility] AST SerPl w P-5'-P-cCnc 17U/L Normal [id number] 10 - 35 [facility] Bilirub SerPl-mCnc 0.2mg/dL Normal [id number] - [facility] Sodium SerPl-sCnc 142mmol/L Normal 335747932026 136 - 144 [facility] Potassium SerPl-sCnc 3.6mmol/L Normal 881130084593 3.3 - 5.3 [facility] Albumin/Glob SerPl 0.9 Below low normal 322804730246 1 - 2.2 [facility] BUN SerPl-mCnc 13mg/dL Normal 891820077959 6 - 20 [facility] Anion Gap3 SerPl-sCnc 12 Normal [id number] 7 - 17 [facility] AST/ALT SerPl-cRto 1.5 Normal [id number] - [facility] ALP SerPl-cCnc 81U/L Normal [id number] 9 - 122 [facility] Globulin Plas-mCnc 3.4g/dL Normal [id number] 2 - 3.9 [facility] HCO3 SerPl-sCnc 30mmol/L Normal [id number] 20 - 30 [facility] Glucose SerPl-mCnc 100mg/dL Normal 220334350886 70 - 100 [facility] BUN/Creat SerPl 25.5 Above high normal [id number] 8 - 23 [facility] Calcium SerPl-mCnc 9.5mg/dL Normal 536146640624 8.8 - 10.2 [facility] Prot SerPl-mCnc 6.3g/dL Normal 044403101949 5.9 - 8.3 [facility] Magnesium SerPl-mCnc 1.9mg/dL Normal 588710738944 1.7 - 2.4 [facility] Hgb Bld-mCnc 10.6g/dL Below low normal 305247056919 13.2 - 17.1 [facility] Eosinophil # Bld Auto 0.7b5648/uL Normal 282271835298 0 - 1 [facility] MCHC RBC Auto-mCnc 31.7g/dL Normal [id number] 31 - 36 [facility] PMV Bld Auto 10.8fL Normal 225441627408 8 - 12 [facility] Basophils/leuk NFr Bld Auto 0.8% Normal [id number] 0 - 1.4 [facility] Monocytes/leuk NFr Bld Auto 15.3% Above high normal [id number] 4 - 12 [facility] RDW RBC Auto-Rto 15.7% Above high normal 275223150261 11 - 15 [facility] Monocytes # Bld Auto 0.1x0813/uL Normal 285924034294 0 - 1 [facility] Basophils # Bld Auto 0.27f4234/uL Normal [id number] 0 - 1 [facility] Imm Granulocytes # Bld Auto 0.11j9221/uL Normal 831359515523 0 - 0.3 [facility] Neutrophils # Bld Auto 1.07n5512/uL Below low normal 183913118973 2 - 7.6 [facility] Hct VFr Bld Auto 33.4% Below low normal 059158918076 38. 5 - 50 [facility] Lymphocytes/leuk NFr Bld Auto 32.8% Normal [id number] 17 - 50 [facility] Lymphocytes # Bld Auto 1.46g2678/uL Normal 247097292820 0.6 - 3.7 [facility] nRBC/100 WBC Bld Auto-Rto 0% Normal [id number] 0 - 1 [facility] RBC # Bld Auto 3.88M/uL Below low normal [id number] 4 - 6 [facility] Neutrophils/leuk NFr Bld Auto 48.1% Normal [id number] 39 - 72 [facility] Eosinophil/leuk NFr Bld Auto 2.5% Normal 596169303504 0 - 5 [facility] Imm Granulocytes/leuk NFr Bld Auto 0.5% Normal 321356545343 0 - 1 [facility] WBC # Bld Auto 3.2v1752/uL Below low normal 773885392119 4 - 11 [facility] nRBC # Bld Auto 6t0208/uL Normal 801262922364 0 - 1 [facility] MCV RBC Auto 86.1fL Normal 022815972796 80 - 100 [facility] MCH RBC Qn Auto 27.3pg Normal [id number] 27 - 33 [facility] Platelet # Bld Auto 080g5489/uL Normal [id number] 150 - 420 [facility] Magnesium SerPl-mCnc 2.1mg/dL Normal [id number] 1.7 - 2.4 [facility] BUN SerPl-mCnc 12mg/dL Normal [id number] 6 - 20 [facility] Creat SerPl-mCnc 0.47mg/dL Normal [id number] 0.4 - 1.3 [facility] Anion Gap3 SerPl-sCnc 10 Normal 362140932051 7 - 17 [facility] GFR/BSA.pred SerPlBld MEY-FND-BcTLlz 60mL/min/1.73m2 Normal [id number] - [facility] HCO3 SerPl-sCnc 32mmol/L Above high normal [id number] 20 - 30 [facility] Glucose SerPl-mCnc 108mg/dL Above high normal 934204325509 70 - 100 [facility] BUN/Creat SerPl 25.5 Above high normal [id number] 8 - 23 [facility] Chloride SerPl-sCnc 101mmol/L Normal 532864806146 98 - 10 7 [facility] Calcium SerPl-mCnc 9.2mg/dL Normal 331107282627 8.8 - 10.2 [facility] Sodium SerPl-sCnc 143mmol/L Normal [id number] 136 - 144 [facility] Potassium SerPl-sCnc 3mmol/L Below low normal 376402738121 3.3 - 5.3 [facility] Creat SerPl-mCnc 0.47mg/dL Normal [id number] 0.4 - 1.3 [facility] GFR/BSA.pred SerPlBld XBL-DNN-OlPMft 60mL/min/1.73m2 Normal [id number] - [facility] ALT SerPl w/o P-5'-P-cCnc 13U/L Normal [id number] 9 - 59 [facility] Albumin SerPl BCG-mCnc 3g/dL Below low normal [id number] 3.6 - 5.1 [facility] Chloride SerPl-sCnc 100mmol/L Normal [id number] 98 - 10 7 [facility] AST SerPl w P-5'-P-cCnc 19U/L Normal [id number] 10 - 35 [facility] Bilirub SerPl-mCnc 0.2mg/dL Normal [id number] - [facility] Sodium SerPl-sCnc 144mmol/L Normal [id number] 136 - 144 [facility] Potassium SerPl-sCnc 3.4mmol/L Normal [id number] 3.3 - 5.3 [facility] Albumin/Glob SerPl 0.8 Below low normal 731564848487 1 - 2.2 [facility] BUN SerPl-mCnc 13mg/dL Normal 976930142889 6 - 20 [facility] Anion Gap3 SerPl-sCnc 13 Normal [id number] 7 - 17 [facility] AST/ALT SerPl-cRto 1.5 Normal 202205543023 - [facility] ALP SerPl-cCnc 88U/L Normal [id number] 9 - 122 [facility] Globulin Plas-mCnc 3.7g/dL Normal [id number] 2 - 3.9 [facility] HCO3 SerPl-sCnc 31mmol/L Above high normal 516600458795 20 - 30 [facility] Glucose SerPl-mCnc 112mg/dL Above high normal [id number] 70 - 100 [facility] BUN/Creat SerPl 27.7 Above high normal 717706008482 8 - 23 [facility] Calcium SerPl-mCnc 9.6mg/dL Normal 919765641705 8.8 - 10.2 [facility] Prot SerPl-mCnc 6.7g/dL Normal [id number] 5.9 - 8.3 [facility] Hgb Bld-mCnc 10.5g/dL Below low normal 497494261493 13.2 - 17.1 [facility] Eosinophil # Bld Auto 0.69w2025/uL Normal 517152570414 0 - 1 [facility] MCHC RBC Auto-mCnc 31.7g/dL Normal [id number] 31 - 36 [facility] PMV Bld Auto 11.5fL Normal [id number] 8 - 12 [facility] Basophils/leuk NFr Bld Auto 0.4% Normal 457341276174 0 - 1.4 [facility] Monocytes/leuk NFr Bld Auto 13.5% Above high normal 566215650614 4 - 12 [facility] RDW RBC Auto-Rto 15.9% Above high normal 656003290154 11 - 15 [facility] Monocytes # Bld Auto 0.66w6432/uL Normal 639018890409 0 - 1 [facility] Basophils # Bld Auto 0.99a7604/uL Normal 347576267152 0 - 1 [facility] Imm Granulocytes # Bld Auto 0.59z8060/uL Normal 058063235223 0 - 0.3 [facility] Neutrophils # Bld Auto 2.11r0886/uL Normal [id number] 2 - 7.6 [facility] Hct VFr Bld Auto 33.1% Below low normal 257457376794 38. 5 - 50 [facility] Lymphocytes/leuk NFr Bld Auto 34% Normal 075069730871 17 - 50 [facility] Lymphocytes # Bld Auto 1.78h1151/uL Normal 163322078628 0.6 - 3.7 [facility] nRBC/100 WBC Bld Auto-Rto 0% Normal 634051885565 0 - 1 [facility] RBC # Bld Auto 3.86M/uL Below low normal 007557057781 4 - 6 [facility] Neutrophils/leuk NFr Bld Auto 48.5% Normal 638941527786 39 - 72 [facility] Eosinophil/leuk NFr Bld Auto 3.2% Normal [id number] 0 - 5 [facility] Imm Granulocytes/leuk NFr Bld Auto 0.4% Normal 030647797793 0 - 1 [facility] WBC # Bld Auto 4.3q0805/uL Normal [id number] 4 - 11 [facility] nRBC # Bld Auto 7l3811/uL Normal 162147443686 0 - 1 [facility] MCV RBC Auto 85.8fL Normal 374785566301 80 - 100 [facility] MCH RBC Qn Auto 27.2pg Normal 868222040049 27 - 33 [facility] Platelet # Bld Auto 848q7033/uL Normal [id number] 150 - 420 [facility] Creat SerPl-mCnc 0.54mg/dL Normal 024512253080 0.4 - 1.3 [facility] GFR/BSA.pred SerPlBld SPB-CAV-CsZGzl 60mL/min/1.73m2 Normal [id number] - [facility] ALT SerPl w/o P-5'-P-cCnc 5U/L Below low normal 809347636180 9 - 59 [facility] Albumin SerPl BCG-mCnc 2.8g/dL Below low normal 023249582607 3.6 - 5.1 [facility] Chloride SerPl-sCnc 103mmol/L Normal 564297451954 98 - 10 7 [facility] AST SerPl w P-5'-P-cCnc 17U/L Normal [id number] 10 - 35 [facility] Bilirub SerPl-mCnc 0.2mg/dL Normal [id number] - [facility] Sodium SerPl-sCnc 143mmol/L Normal [id number] 136 - 144 [facility] Potassium SerPl-sCnc 3.4mmol/L Normal [id number] 3.3 - 5.3 [facility] Albumin/Glob SerPl 0.8 Below low normal 479457307038 1 - 2.2 [facility] BUN SerPl-mCnc 13mg/dL Normal 002884458392 6 - 20 [facility] Anion Gap3 SerPl-sCnc 6 Below low normal 476709964402 7 - 17 [facility] AST/ALT SerPl-cRto Normal 472621201733 [facility] ALP SerPl-cCnc 80U/L Normal 612495395497 9 - 122 [facility] Globulin Plas-mCnc 3.4g/dL Normal 256951063570 2 - 3.9 [facility] HCO3 SerPl-sCnc 34mmol/L Above high normal 911829925995 20 - 30 [facility] Glucose SerPl-mCnc 110mg/dL Above high normal 897749052385 70 - 100 [facility] BUN/Creat SerPl 24.1 Above high normal 703496852252 8 - 23 [facility] Calcium SerPl-mCnc 9.4mg/dL Normal 558392435939 8.8 - 10.2 [facility] Prot SerPl-mCnc 6.2g/dL Normal 361114758511 5.9 - 8.3 [facility] Hgb Bld-mCnc 9.6g/dL Below low normal 504832173408 13.2 - 17.1 [facility] Eosinophil # Bld Auto 0.72m3204/uL Normal 515575117687 0 - 1 [facility] MCHC RBC Auto-mCnc 31.7g/dL Normal 969801951127 31 - 36 [facility] PMV Bld Auto 11.3fL Normal 148081113707 8 - 12 [facility] Basophils/leuk NFr Bld Auto 0.2% Normal 327526488484 0 - 1.4 [facility] Monocytes/leuk NFr Bld Auto 16.1% Above high normal 752512098690 4 - 12 [facility] RDW RBC Auto-Rto 15.5% Above high normal 973132259432 11 - 15 [facility] Monocytes # Bld Auto 0.15f5636/uL Normal 732531754132 0 - 1 [facility] Basophils # Bld Auto 0.74q4999/uL Normal 963484422823 0 - 1 [facility] Imm Granulocytes # Bld Auto 0.15r7749/uL Normal [id number] 0 - 0.3 [facility] Neutrophils # Bld Auto 3.64t7534/uL Normal 042613224970 2 - 7.6 [facility] Hct VFr Bld Auto 30.3% Below low normal 707788252333 38. 5 - 50 [facility] Lymphocytes/leuk NFr Bld Auto 22.8% Normal 483969461519 17 - 50 [facility] Lymphocytes # Bld Auto 1.00p4954/uL Normal 446090152447 0.6 - 3.7 [facility] nRBC/100 WBC Bld Auto-Rto 0% Normal [id number] 0 - 1 [facility] RBC # Bld Auto 3.53M/uL Below low normal 772865244031 4 - 6 [facility] Neutrophils/leuk NFr Bld Auto 58.5% Normal 746427991555 39 - 72 [facility] Eosinophil/leuk NFr Bld Auto 2% Normal 254617157080 0 - 5 [facility] Imm Granulocytes/leuk NFr Bld Auto 0.4% Normal 058655586372 0 - 1 [facility] WBC # Bld Auto 5.9r2522/uL Normal 003414035883 4 - 11 [facility] nRBC # Bld Auto 6s5749/uL Normal 703370377217 0 - 1 [facility] MCV RBC Auto 85.8fL Normal 966157937053 80 - 100 [facility] MCH RBC Qn Auto 27.2pg Normal 080700253870 27 - 33 [facility] Platelet # Bld Auto 428o1341/uL Normal [id number] 150 - 420 [facility] BUN SerPl-mCnc 15mg/dL Normal 195968768988 6 - 20 [facility] Creat SerPl-mCnc 0.51mg/dL Normal 153478806776 0.4 - 1.3 [facility] Anion Gap3 SerPl-sCnc 9 Normal 761594808571 7 - 17 [facility] GFR/BSA.pred SerPlBld MRH-PGA-KoLTuh 60mL/min/1.73m2 Normal 781965641315 - [facility] HCO3 SerPl-sCnc 31mmol/L Above high normal 945047662404 20 - 30 [facility] Glucose SerPl-mCnc 99mg/dL Normal 678552118398 70 - 100 [facility] BUN/Creat SerPl 29.4 Above high normal 106375863745 8 - 23 [facility] Chloride SerPl-sCnc 100mmol/L Normal 134734897567 98 - 10 7 [facility] Calcium SerPl-mCnc 9.5mg/dL Normal 348893304619 8.8 - 10.2 [facility] Sodium SerPl-sCnc 140mmol/L Normal [id number] 136 - 144 [facility] Potassium SerPl-sCnc 3.5mmol/L Normal 167300500856 3.3 - 5.3 [facility] Magnesium SerPl-mCnc 2.1mg/dL Normal 511961415199 1.7 - 2.4 [facility] Hgb Bld-mCnc 9.7g/dL Below low normal 602907153956 13.2 - 17.1 [facility] Eosinophil # Bld Auto 0.82c6017/uL Normal 743129494280 0 - 1 [facility] MCHC RBC Auto-mCnc 30.4g/dL Below low normal 407056722016 3 1 - 36 [facility] PMV Bld Auto 11.4fL Normal 392305305899 8 - 12 [facility] Basophils/leuk NFr Bld Auto 0.4% Normal 523632517644 0 - 1.4 [facility] Monocytes/leuk NFr Bld Auto 18.3% Above high normal 647335152994 4 - 12 [facility] RDW RBC Auto-Rto 15.8% Above high normal 996914283206 11 - 15 [facility] Monocytes # Bld Auto 1.89c0022/uL Above high normal 260206565770 0 - 1 [facility] Basophils # Bld Auto 0.23r9386/uL Normal 395704450489 0 - 1 [facility] Imm Granulocytes # Bld Auto 0.71z1142/uL Normal 608058633488 0 - 0.3 [facility] Neutrophils # Bld Auto 3.17w3581/uL Normal 376629057879 2 - 7.6 [facility] Hct VFr Bld Auto 31.9% Below low normal 778264269990 38. 5 - 50 [facility] Lymphocytes/leuk NFr Bld Auto 25.1% Normal [id number] 17 - 50 [facility] Lymphocytes # Bld Auto 1.02p2480/uL Normal 368455221091 0.6 - 3.7 [facility] nRBC/100 WBC Bld Auto-Rto 0% Normal 688213502227 0 - 1 [facility] RBC # Bld Auto 3.73M/uL Below low normal 793610796727 4 - 6 [facility] Neutrophils/leuk NFr Bld Auto 54.2% Normal 645392060049 39 - 72 [facility] Eosinophil/leuk NFr Bld Auto 1.6% Normal 801675584936 0 - 5 [facility] Imm Granulocytes/leuk NFr Bld Auto 0.4% Normal 443559964929 0 - 1 [facility] WBC # Bld Auto 5.5i0101/uL Normal 801632874226 4 - 11 [facility] nRBC # Bld Auto 8o8100/uL Normal 181122403746 0 - 1 [facility] MCV RBC Auto 85.5fL Normal 566177212623 80 - 100 [facility] MCH RBC Qn Auto 26pg Below low normal 534388823912 27 - 33 [facility] Platelet # Bld Auto 844w7843/uL Normal 469902178499 150 - 420 [facility] Magnesium SerPl-mCnc 1.8mg/dL Normal 811810026653 1.7 - 2.4 [facility] Hgb Bld-mCnc 9.1g/dL Below low normal 745404975318 13.2 - 17.1 [facility] Eosinophil # Bld Auto 0.51p2341/uL Normal 827503405985 0 - 1 [facility] MCHC RBC Auto-mCnc 32.2g/dL Normal 763365679761 31 - 36 [facility] PMV Bld Auto 11.8fL Normal 746688052095 8 - 12 [facility] HCT Basophils/leuk NFr Bld Auto 0.1% Normal 979354540154 0 - 1.4 [facility] Monocytes/leuk NFr Bld Auto 12.6% Above high normal 275079595366 4 - 12 [facility] RDW RBC Auto-Rto 15.6% Above high normal 855013722826 11 - 15 [facility] Monocytes # Bld Auto 1.31h6163/uL Above high normal 101794404517 0 - 1 [facility] Basophils # Bld Auto 0.61j5742/uL Normal [id number] 0 - 1 [facility] Imm Granulocytes # Bld Auto 0.27e5157/uL Normal [id number] 0 - 0.3 [facility] Neutrophils # Bld Auto 5.03n2191/uL Normal [id number] 2 - 7.6 [facility] Hct VFr Bld Auto 28.3% Below low normal [id number] 38. 5 - 50 [facility] Lymphocytes/leuk NFr Bld Auto 12.6% Below low normal [id number] 17 - 50 [facility] Lymphocytes # Bld Auto 1.21a3873/uL Normal [id number] 0.6 - 3.7 [facility] nRBC/100 WBC Bld Auto-Rto 0% Normal [id number] 0 - 1 [facility] RBC # Bld Auto 3.37M/uL Below low normal [id number] 4 - 6 [facility] Neutrophils/leuk NFr Bld Auto 73.8% Above high normal 467410678760 39 - 72 [facility] Eosinophil/leuk NFr Bld Auto 0.5% Normal [id number] 0 - 5 [facility] Imm Granulocytes/leuk NFr Bld Auto 0.4% Normal [id number] 0 - 1 [facility] WBC # Bld Auto 8.6e3619/uL Normal [id number] 4 - 11 [facility] nRBC # Bld Auto 1n9555/uL Normal [id number] 0 - 1 [facility] MCV RBC Auto 84fL Normal [id number] 80 - 100 [facility] MCH RBC Qn Auto 27pg Normal [id number] 27 - 33 [facility] Platelet # Bld Auto 515p6746/uL Normal [id number] 150 - 420 [facility] BUN SerPl-mCnc 11mg/dL Normal [id number] 6 - 20 [facility] Creat SerPl-mCnc 0.53mg/dL Normal [id number] 0.4 - 1.3 [facility] Anion Gap3 SerPl-sCnc 13 Normal [id number] 7 - 17 [facility] GFR/BSA.pred SerPlBld PRZ-TIV-NkEIrh 60mL/min/1.73m2 Normal 185044421046 - [facility] HCO3 SerPl-sCnc 25mmol/L Normal [id number] 20 - 30 [facility] Glucose SerPl-mCnc 101mg/dL Above high normal [id number] 70 - 100 [facility] BUN/Creat SerPl 20.8 Normal [id number] 8 - 23 [facility] Chloride SerPl-sCnc 100mmol/L Normal [id number] 98 - 10 7 [facility] Calcium SerPl-mCnc 9.5mg/dL Normal 345832678565 8.8 - 10.2 [facility] Sodium SerPl-sCnc 138mmol/L Normal [id number] 136 - 144 [facility] Potassium SerPl-sCnc 3.3mmol/L Normal [id number] 3.3 - 5.3 [facility] BKR REFLEX URINE CULTURE See Comment Normal [id number] [facility] RBC #/area UrnS Auto 2/HPF Normal [id number] 0 - 2 [facility] WBC #/area UrnS Auto 3/HPF Normal [id number] 0 - 5 [facility] Glucose Ur Strip.auto-mCnc Negative Normal 242020994048 - [facility] Color Ur Auto Yellow Normal [id number] - [facility] Hgb Ur Ql Strip.auto Negative Normal [id number] - [facility] Ketones Ur Strip.auto-mCnc 1+ Abnormal 150426250784 - [facility] Prot Ur Strip.auto-mCnc Negative Normal [id number] - [facility] Bilirub Ur Ql Strip.auto Negative Normal [id number] - [facility] WBC # Ur Strip Negative Normal [id number] - [facility] Nitrite Ur Ql Strip.auto Negative Normal [id number] - [facility] Clarity Ur Refract.auto Cloudy Abnormal [id number] - [facility] pH Ur Strip.auto 6.5 Normal [id number] 5.5 - 7.5 [facility] Urobilinogen Ur Strip-mCnc 4mg/dL Above high normal [id number] - [facility] Sp Gr Ur Refract.auto 1.016 Normal [id number] 1.005 - 1.03 [facility] Magnesium SerPl-mCnc 1.8mg/dL Normal [id number] 1.7 - 2.4 [facility] Creat SerPl-mCnc 0.47mg/dL Normal [id number] 0.4 - 1.3 [facility] GFR/BSA.pred SerPlBld CNF-WLS-XiUOsi 60mL/min/1.73m2 Normal [id number] - [facility] ALT SerPl w/o P-5'-P-cCnc 10U/L Normal 9 - 59 [facility] Albumin SerPl BCG-mCnc 2.8g/dL Below low normal [id number] 3.6 - 5.1 [facility] Chloride SerPl-sCnc 101mmol/L Normal 98 - 10 7 [facility] AST SerPl w P-5'-P-cCnc 9U/L Below low normal 10 - 35 [facility] Bilirub SerPl-mCnc 0.2mg/dL Normal - [facility] Sodium SerPl-sCnc 140mmol/L Normal 136 - 144 [facility] Potassium SerPl-sCnc 3.4mmol/L Normal 3.3 - 5.3 [facility] Albumin/Glob SerPl 0.8 Below low normal 1 - 2.2 [facility] BUN SerPl-mCnc 11mg/dL Normal [id number] 6 - 20 [facility] Anion Gap3 SerPl-sCnc 12 Normal 7 - 17 [facility] AST/ALT SerPl-cRto 0.9 Normal - [facility] ALP SerPl-cCnc 82U/L Normal 9 - 122 [facility] Globulin Plas-mCnc 3.5g/dL Normal 2 - 3.9 [facility] HCO3 SerPl-sCnc 27mmol/L Normal 20 - 30 [facility] Glucose SerPl-mCnc 127mg/dL Above high normal 957572589254 70 - 100 [facility] BUN/Creat SerPl 23.4 Above high normal [id number] 8 - 23 [facility] Calcium SerPl-mCnc 9.2mg/dL Normal [id number] 8.8 - 10.2 [facility] Prot SerPl-mCnc 6.3g/dL Normal 5.9 - 8.3 [facility] Hgb Bld-mCnc 9.7g/dL Below low normal [id number] 13.2 - 17.1 [facility] MCHC RBC Auto-mCnc 31.6g/dL Normal [id number] 31 - 36 [facility] PMV Bld Auto 11.9fL Normal [id number] 8 - 12 [facility] RBC # Bld Auto 3.61M/uL Below low normal 355663127584 4 - 6 [facility] WBC # Bld Auto 4y3891/uL Normal [id number] 4 - 11 [facility] RDW RBC Auto-Rto 15.5% Above high normal [id number] 11 - 15 [facility] MCV RBC Auto 85fL Normal [id number] 80 - 100 [facility] MCH RBC Qn Auto 26.9pg Below low normal 748568363155 27 - 33 [facility] Neutrophils # Bld Auto 4.16q9420/uL Normal 933273768305 2 - 7.6 [facility] Hct VFr Bld Auto 30.7% Below low normal [id number] 38. 5 - 50 [facility] Platelet # Bld Auto 684c9376/uL Normal [id number] 150 - 420 [facility] BKR ESTIMATED AVERAGE GLUCOSE 128mg/dL Normal 648140890094 [facility] HbA1c MFr Bld 6.1% Above high normal [id number] 4 - 5 .6 [facility] Ferritin SerPl-mCnc 67ng/mL Normal [id number] 30 - 40 0 [facility] TIBC SerPl-mCnc 296ug/dL Normal [id number] 250 - 450 [facility] Iron SerPl-mCnc 15ug/dL Below low normal [id number] 59 - 158 [facility] Iron Satn MFr SerPl 5% Below low normal [id number] 15 - 50 [facility] Trigl SerPl-mCnc 90mg/dL Normal [id number] - [facility] Cholest/HDLc SerPl 3.4 Normal [id number] 0 - 5 [facility] HDLc SerPl-mCnc 36mg/dL Below low normal [id number] - [facility] Cholest SerPl-mCnc 123mg/dL Normal [id number] - [facility] LDLc SerPl Calc-mCnc 70mg/dL Normal [id number] - [facility] BUN SerPl-mCnc 5mg/dL Below low normal 6 - 2 0 [facility] Creat SerPl-mCnc 0.55mg/dL Normal 0.4 - 1.3 [facility] Anion Gap3 SerPl-sCnc 10 Normal 7 - 17 [facility] GFR/BSA.pred SerPlBld KKQ-FWI-LtBUfr 60mL/min/1.73m2 Normal - [facility] HCO3 SerPl-sCnc 26mmol/L Normal 20 - 30 [facility] Glucose SerPl-mCnc 110mg/dL Above high normal 70 - 100 [facility] BUN/Creat SerPl 9.1 Normal 8 - 23 [facility] Chloride SerPl-sCnc 106mmol/L Normal 98 - 10 7 [facility] Calcium SerPl-mCnc 9.2mg/dL Normal 8.8 - 10.2 [facility] Sodium SerPl-sCnc 142mmol/L Normal 136 - 144 [facility] Potassium SerPl-sCnc 3.5mmol/L Normal 3.3 - 5.3 [facility] Hgb Bld-mCnc 9.9g/dL Below low normal 13.2 - 17.1 [facility] Eosinophil # Bld Auto 0.91t0531/uL Normal 0 - 1 [facility] MCHC RBC Auto-mCnc 31.7g/dL Normal 31 - 36 [facility] PMV Bld Auto 10.9fL Normal 8 - 12 [facility] Basophils/leuk NFr Bld Auto 0.4% Normal 0 - 1.4 [facility] Monocytes/leuk NFr Bld Auto 13% Above high normal 547588031516 4 - 12 [facility] RDW RBC Auto-Rto 15.4% Above high normal 608195154476 11 - 15 [facility] Monocytes # Bld Auto 0.3i6427/uL Normal 753469729597 0 - 1 [facility] Basophils # Bld Auto 0.96r5173/uL Normal 635611556210 0 - 1 [facility] Imm Granulocytes # Bld Auto 0.63w7278/uL Normal 448220655519 0 - 0.3 [facility] Neutrophils # Bld Auto 3.54n8371/uL Normal 785065711832 2 - 7.6 [facility] Hct VFr Bld Auto 31.2% Below low normal 427163871127 38. 5 - 50 [facility] Lymphocytes/leuk NFr Bld Auto 27.3% Normal [id number] 17 - 50 [facility] Lymphocytes # Bld Auto 1.74n4570/uL Normal 259112850903 0.6 - 3.7 [facility] nRBC/100 WBC Bld Auto-Rto 0% Normal 992232323370 0 - 1 [facility] RBC # Bld Auto 3.64M/uL Below low normal 884218871710 4 - 6 [facility] Neutrophils/leuk NFr Bld Auto 58.3% Normal 478249392960 39 - 72 [facility] Eosinophil/leuk NFr Bld Auto 0.6% Normal 698564927523 0 - 5 [facility] Granulocytes/leuk NFr Bld Auto 0.4% Normal 440301944147 0 - 1 [facility] WBC # Bld Auto 5.3q9662/uL Normal [id number] 4 - 11 [facility] nRBC # Bld Auto 5p6244/uL Normal 848910762310 0 - 1 [facility] MCV RBC Auto 85.7fL Normal 178047972288 80 - 100 [facility] MCH RBC Qn Auto 27.2pg Normal 061804040364 27 - 33 [facility] Platelet # Bld Auto 621r3113/uL Normal [id number] 150 - 420 [facility] BUN SerPl-mCnc 6mg/dL Normal 202044190569 6 - 20 [facility] Creat SerPl-mCnc 0.63mg/dL Normal 848928572348 0.4 - 1.3 [facility] Anion Gap3 SerPl-sCnc 11 Normal 041250309033 7 - 17 [facility] GFR/BSA.pred SerPlBld KMS-WQV-NkQVps 60mL/min/1.73m2 Normal 594877001278 - [facility] HCO3 SerPl-sCnc 28mmol/L Normal 241092557539 20 - 30 [facility] Glucose SerPl-mCnc 110mg/dL Above high normal 229271267593 70 - 100 [facility] BUN/Creat SerPl 9.5 Normal 778533731415 8 - 23 [facility] Chloride SerPl-sCnc 105mmol/L Normal 98 - 10 7 [facility] Calcium SerPl-mCnc 9.5mg/dL Normal 8.8 - 10.2 [facility] Sodium SerPl-sCnc 144mmol/L Normal 419877647355 136 - 144 [facility] Potassium SerPl-sCnc 3.1mmol/L Below low normal 432151802618 3.3 - 5.3 [facility] Hgb Bld-mCnc 10.8g/dL Below low normal 553450267529 13.2 - 17.1 [facility] Eosinophil # Bld Auto 0.41u5197/uL Normal 950909292649 0 - 1 [facility] MCHC RBC Auto-mCnc 32g/dL Normal 544056843080 31 - 36 [facility] PMV Bld Auto 11fL Normal 794345647015 8 - 12 [facility] Basophils/leuk NFr Bld Auto 0.5% Normal 500551966792 0 - 1.4 [facility] Monocytes/leuk NFr Bld Auto 14.9% Above high normal 762591617169 4 - 12 [facility] RDW RBC Auto-Rto 15.2% Above high normal 074002820918 11 - 15 [facility] Monocytes # Bld Auto 0.80t3877/uL Normal 595704748813 0 - 1 [facility] Basophils # Bld Auto 0.71p2570/uL Normal 682001500323 0 - 1 [facility] Imm Granulocytes # Bld Auto 0.39i7860/uL Normal 098197104640 0 - 0.3 [facility] Neutrophils # Bld Auto 2.52d5108/uL Normal 163137387733 2 - 7.6 [facility] Hct VFr Bld Auto 33.7% Below low normal 192168475965 38. 5 - 50 [facility] Lymphocytes/leuk NFr Bld Auto 35.2% Normal 842211824008 17 - 50 [facility] Lymphocytes # Bld Auto 1.35v2511/uL Normal 922697695047 0.6 - 3.7 [facility] nRBC/100 WBC Bld Auto-Rto 0% Normal 319740765976 0 - 1 [facility] RBC # Bld Auto 3.96M/uL Below low normal 234747212985 4 - 6 [facility] Neutrophils/leuk NFr Bld Auto 48.5% Normal 609699099489 39 - 72 [facility] Eosinophil/leuk NFr Bld Auto 0.7% Normal 001485968253 0 - 5 [facility] Imm Granulocytes/leuk NFr Bld Auto 0.2% Normal 962016073982 0 - 1 [facility] WBC # Bld Auto 4.2h2659/uL Normal 679801007682 4 - 11 [facility] nRBC # Bld Auto 4k6375/uL Normal 265614483920 0 - 1 [facility] MCV RBC Auto 85.1fL Normal 562391735409 80 - 100 [facility] MCH RBC Qn Auto 27.3pg Normal [id number] 27 - 33 [facility] Platelet # Bld Auto 019n5913/uL Normal 271654208578 150 - 420 [facility] BUN SerPl-mCnc 7mg/dL Normal 6 - 20 [facility] Creat SerPl-mCnc 0.55mg/dL Normal 0.4 - 1.3 [facility] Anion Gap3 SerPl-sCnc 13 Normal 7 - 17 [facility] GFR/BSA.pred SerPlBld WWI-KDZ-BiIPmc 60mL/min/1.73m2 Normal 144459300053 - [facility] HCO3 SerPl-sCnc 30mmol/L Normal 20 - 30 [facility] Glucose SerPl-mCnc 107mg/dL Above high normal 70 - 100 [facility] BUN/Creat SerPl 12.7 Normal 8 - 23 [facility] Chloride SerPl-sCnc 103mmol/L Normal 98 - 10 7 [facility] Calcium SerPl-mCnc 9.7mg/dL Normal 8.8 - 10.2 [facility] Sodium SerPl-sCnc 146mmol/L Above high normal 1 36 - 144 [facility] Potassium SerPl-sCnc 3.3mmol/L Normal 3.3 - 5.3 [facility] Hgb Bld-mCnc 10.7g/dL Below low normal 946623958858 13.2 - 17.1 [facility] Eosinophil # Bld Auto 0.31g0728/uL Normal 268881951365 0 - 1 [facility] MCHC RBC Auto-mCnc 30.5g/dL Below low normal 017542170534 3 1 - 36 [facility] PMV Bld Auto 11.5fL Normal 374109889452 8 - 12 [facility] Basophils/leuk NFr Bld Auto 0.6% Normal 0 - 1.4 [facility] Monocytes/leuk NFr Bld Auto 14.2% Above high normal 269548657129 4 - 12 [facility] RDW RBC Auto-Rto 15.1% Above high normal 332464727040 11 - 15 [facility] Monocytes # Bld Auto 0.58d6668/uL Normal 028381833475 0 - 1 [facility] Basophils # Bld Auto 0.51a6177/uL Normal 565509500486 0 - 1 [facility] Imm Granulocytes # Bld Auto 0.94a5346/uL Normal 461614898497 0 - 0.3 [facility] Neutrophils # Bld Auto 2.73u3658/uL Normal 004746268922 2 - 7.6 [facility] Hct VFr Bld Auto 35.1% Below low normal 017211644665 38. 5 - 50 [facility] Lymphocytes/leuk NFr Bld Auto 37.4% Normal 956446104771 17 - 50 [facility] Lymphocytes # Bld Auto 1.63u8795/uL Normal 475995661686 0.6 - 3.7 [facility] nRBC/100 WBC Bld Auto-Rto 0% Normal 572361636316 0 - 1 [facility] RBC # Bld Auto 4.06M/uL Normal 815277287816 4 - 6 [facility] Neutrophils/leuk NFr Bld Auto 46.8% Normal 536627553632 39 - 72 [facility] Eosinophil/leuk NFr Bld Auto 0.8% Normal 280038877875 0 - 5 [facility] Imm Granulocytes/leuk NFr Bld Auto 0.2% Normal 684278230365 0 - 1 [facility] WBC # Bld Auto 4.5z8168/uL Normal 081552209099 4 - 11 [facility] nRBC # Bld Auto 8e4614/uL Normal 505814956080 0 - 1 [facility] MCV RBC Auto 86.5fL Normal 562812786071 80 - 100 [facility] MCH RBC Qn Auto 26.4pg Below low normal 141700157721 27 - 33 [facility] Platelet # Bld Auto 430y6010/uL Normal 985770266784 150 - 420 [facility] BUN SerPl-mCnc 9mg/dL Normal 073986585932 6 - 20 [facility] Creat SerPl-mCnc 0.64mg/dL Normal 589282285244 0.4 - 1.3 [facility] Anion Gap3 SerPl-sCnc 13 Normal 866534183854 7 - 17 [facility] GFR/BSA.pred SerPlBld DHC-XUE-PkGHeb 60mL/min/1.73m2 Normal 487340421929 - [facility] HCO3 SerPl-sCnc 29mmol/L Normal 782937874027 20 - 30 [facility] Glucose SerPl-mCnc 96mg/dL Normal 347859676365 70 - 100 [facility] BUN/Creat SerPl 14.1 Normal 215343064829 8 - 23 [facility] Chloride SerPl-sCnc 102mmol/L Normal 323550096360 98 - 10 7 [facility] Calcium SerPl-mCnc 9.8mg/dL Normal 607321156032 8.8 - 10.2 [facility] Sodium SerPl-sCnc 144mmol/L Normal 136 - 144 [facility] Potassium SerPl-sCnc 3.2mmol/L Below low normal 885520876096 3.3 - 5.3 [facility] Hgb Bld-mCnc 11.2g/dL Below low normal 427099564152 13.2 - 17.1 [facility] Eosinophil # Bld Auto 0.72m0478/uL Normal 741664588608 0 - 1 [facility] MCHC RBC Auto-mCnc 31.1g/dL Normal [id number] 31 - 36 [facility] PMV Bld Auto 11.5fL Normal 803750285716 8 - 12 [facility] Basophils/leuk NFr Bld Auto 0.7% Normal 065923773024 0 - 1.4 [facility] Monocytes/leuk NFr Bld Auto 12.2% Above high normal 551415013083 4 - 12 [facility] RDW RBC Auto-Rto 15% Normal 310421242614 11 - 15 [facility] Monocytes # Bld Auto 0.52c3642/uL Normal 929371806803 0 - 1 [facility] Basophils # Bld Auto 0.35p9270/uL Normal 149957294575 0 - 1 [facility] Imm Granulocytes # Bld Auto 3z3086/uL Normal 779284755732 0 - 0.3 [facility] Neutrophils # Bld Auto 1.85w1931/uL Below low normal 317973020189 2 - 7.6 [facility] Hct VFr Bld Auto 36% Below low normal 173917695753 38. 5 - 50 [facility] Lymphocytes/leuk NFr Bld Auto 50.6% Above high normal [id number] 17 - 50 [facility] Lymphocytes # Bld Auto 2.92t4213/uL Normal 647153480524 0.6 - 3.7 [facility] nRBC/100 WBC Bld Auto-Rto 0% Normal 133647851440 0 - 1 [facility] RBC # Bld Auto 4.18M/uL Normal 296139893802 4 - 6 [facility] Neutrophils/leuk NFr Bld Auto 34.9% Below low normal 542066617362 39 - 72 [facility] Eosinophil/leuk NFr Bld Auto 1.6% Normal 802129199135 0 - 5 [facility] Granulocytes/leuk NFr Bld Auto 0% Normal 985066698244 0 - 1 [facility] WBC # Bld Auto 4.7u7187/uL Normal 775810002085 4 - 11 [facility] nRBC # Bld Auto 0e1154/uL Normal 816552682411 0 - 1 [facility] MCV RBC Auto 86.1fL Normal 762454544120 80 - 100 [facility] MCH RBC Qn Auto 26.8pg Below low normal 178008290627 27 - 33 [facility] Platelet # Bld Auto 298j4198/uL Normal [id number] 150 - 420 [facility] BUN SerPl-mCnc 11mg/dL Normal [id number] 6 - 20 [facility] Creat SerPl-mCnc 0.64mg/dL Normal 332995352571 0.4 - 1.3 [facility] Anion Gap3 SerPl-sCnc 12 Normal [id number] 7 - 17 [facility] GFR/BSA.pred SerPlBld VFC-WFP-MsORnn 60mL/min/1.73m2 Normal 282032414958 - [facility] HCO3 SerPl-sCnc 28mmol/L Normal 788839763517 20 - 30 [facility] Glucose SerPl-mCnc 108mg/dL Above high normal 265195937711 70 - 100 [facility] BUN/Creat SerPl 17.2 Normal 984893025273 8 - 23 [facility] Chloride SerPl-sCnc 102mmol/L Normal 732697070876 98 - 10 7 [facility] Calcium SerPl-mCnc 9.3mg/dL Normal 545057573014 8.8 - 10.2 [facility] Sodium SerPl-sCnc 142mmol/L Normal 226975720350 136 - 144 [facility] Potassium SerPl-sCnc 3.3mmol/L Normal 307117731855 3.3 - 5.3 [facility] Hgb Bld-mCnc 10.1g/dL Below low normal 090312531261 13.2 - 17.1 [facility] MCHC RBC Auto-mCnc 31.2g/dL Normal 147579534999 31 - 36 [facility] PMV Bld Auto 11.6fL Normal 908788228852 8 - 12 [facility] RBC # Bld Auto 3.79M/uL Below low normal 711971768108 4 - 6 [facility] WBC # Bld Auto 4.9h1831/uL Normal 601566986992 4 - 11 [facility] RDW RBC Auto-Rto 14.9% Normal [id number] 11 - 15 [facility] MCV RBC Auto 85.5fL Normal 746238691831 80 - 100 [facility] MCH RBC Qn Auto 26.6pg Below low normal [id number] 27 - 33 [facility] Neutrophils # Bld Auto 1.6h2458/uL Below low normal 457706834149 2 - 7.6 [facility] Hct VFr Bld Auto 32.4% Below low normal 673295399411 38. 5 - 50 [facility] Platelet # Bld Auto 135c4358/uL Normal 219674293025 150 - 420 [facility] BUN SerPl-mCnc 11mg/dL Normal 005078164263 6 - 20 [facility] Creat SerPl-mCnc 0.6mg/dL Normal 514917924734 0.4 - 1.3 [facility] Anion Gap3 SerPl-sCnc 9 Normal 224409373843 7 - 17 [facility] GFR/BSA.pred SerPlBld RMP-NNQ-QdMMrz 60mL/min/1.73m2 Normal 765988545579 - [facility] HCO3 SerPl-sCnc 29mmol/L Normal 814333095973 20 - 30 [facility] Glucose SerPl-mCnc 117mg/dL Above high normal 178072414012 70 - 100 [facility] BUN/Creat SerPl 18.3 Normal 161122210121 8 - 23 [facility] Chloride SerPl-sCnc 104mmol/L Normal 369489806135 98 - 10 7 [facility] Calcium SerPl-mCnc 9.2mg/dL Normal 010774067855 8.8 - 10.2 [facility] Sodium SerPl-sCnc 142mmol/L Normal [id number] 136 - 144 [facility] Potassium SerPl-sCnc 3.3mmol/L Normal 768227840679 3.3 - 5.3 [facility] BUN SerPl-mCnc 11mg/dL Normal 613855180218 6 - 20 [facility] Creat SerPl-mCnc 0.55mg/dL Normal [id number] 0.4 - 1.3 [facility] Anion Gap3 SerPl-sCnc 12 Normal [id number] 7 - 17 [facility] GFR/BSA.pred SerPlBld BUH-OWS-OjJIse 60mL/min/1.73m2 Normal [id number] - [facility] HCO3 SerPl-sCnc 24mmol/L Normal 231635160714 20 - 30 [facility] Glucose SerPl-mCnc 112mg/dL Above high normal 712198841609 70 - 100 [facility] BUN/Creat SerPl 20 Normal 244239845168 8 - 23 [facility] Chloride SerPl-sCnc 105mmol/L Normal 407276422859 98 - 10 7 [facility] Calcium SerPl-mCnc 9mg/dL Normal 766120754449 8.8 - 10.2 [facility] Sodium SerPl-sCnc 141mmol/L Normal 248842738245 136 - 144 [facility] Potassium SerPl-sCnc 3mmol/L Below low normal 961699031867 3.3 - 5.3 [facility] Hgb Bld-mCnc 9.5g/dL Below low normal 621539151665 13.2 - 17.1 [facility] Eosinophil # Bld Auto 0.33y6816/uL Normal 812280432087 0 - 1 [facility] MCHC RBC Auto-mCnc 31.3g/dL Normal 340068290617 31 - 36 [facility] PMV Bld Auto 11.8fL Normal 022877290003 8 - 12 [facility] Basophils/leuk NFr Bld Auto 0.4% Normal 436807553452 0 - 1.4 [facility] Monocytes/leuk NFr Bld Auto 12.5% Above high normal 546513452548 4 - 12 [facility] RDW RBC Auto-Rto 14.7% Normal 222884212586 11 - 15 [facility] Monocytes # Bld Auto 0.32p5435/uL Normal 997264341508 0 - 1 [facility] Basophils # Bld Auto 0.92t7030/uL Normal 655854398028 0 - 1 [facility] Imm Granulocytes # Bld Auto 0.10d1397/uL Normal 612847925039 0 - 0.3 [facility] Neutrophils # Bld Auto 2.16w2923/uL Normal 464341053438 2 - 7.6 [facility] Hct VFr Bld Auto 30.4% Below low normal 290740153331 38. 5 - 50 [facility] Lymphocytes/leuk NFr Bld Auto 31.5% Normal 524932489593 17 - 50 [facility] Lymphocytes # Bld Auto 1.39x9004/uL Normal 623413283545 0.6 - 3.7 [facility] nRBC/100 WBC Bld Auto-Rto 0% Normal 906955365954 0 - 1 [facility] RBC # Bld Auto 3.56M/uL Below low normal 801525314999 4 - 6 [facility] Neutrophils/leuk NFr Bld Auto 54.8% Normal 986049410148 39 - 72 [facility] Eosinophil/leuk NFr Bld Auto 0.6% Normal 406111151528 0 - 5 [facility] Imm Granulocytes/leuk NFr Bld Auto 0.2% Normal 192383453576 0 - 1 [facility] WBC # Bld Auto 5.1e8303/uL Normal 451203110665 4 - 11 [facility] nRBC # Bld Auto 3j4175/uL Normal 691868470312 0 - 1 [facility] MCV RBC Auto 85.4fL Normal 996197043211 80 - 100 [facility] MCH RBC Qn Auto 26.7pg Below low normal 576593159255 27 - 33 [facility] Platelet # Bld Auto 406d8765/uL Normal [id number] 150 - 420 [facility] BUN SerPl-mCnc 10mg/dL Normal [id number] 6 - 20 [facility] Creat SerPl-mCnc 0.57mg/dL Normal 116260735489 0.4 - 1.3 [facility] Anion Gap3 SerPl-sCnc 13 Normal 963627504285 7 - 17 [facility] GFR/BSA.pred SerPlBld QPZ-BQA-TxWPjj 60mL/min/1.73m2 Normal 799570195502 - [facility] HCO3 SerPl-sCnc 27mmol/L Normal 940237313195 20 - 30 [facility] Glucose SerPl-mCnc 99mg/dL Normal 484191573474 70 - 100 [facility] BUN/Creat SerPl 17.5 Normal 900205455004 8 - 23 [facility] Chloride SerPl-sCnc 105mmol/L Normal 487310289374 98 - 10 7 [facility] Calcium SerPl-mCnc 9.7mg/dL Normal 472822818509 8.8 - 10.2 [facility] Sodium SerPl-sCnc 145mmol/L Above high normal 694292644032 1 36 - 144 [facility] Potassium SerPl-sCnc 3.3mmol/L Normal 102856523586 3.3 - 5.3 [facility] Hgb Bld-mCnc 10.5g/dL Below low normal 174552570704 13.2 - 17.1 [facility] Eosinophil # Bld Auto 0.72y7305/uL Normal 724734007352 0 - 1 [facility] MCHC RBC Auto-mCnc 30.2g/dL Below low normal 123478864800 3 1 - 36 [facility] PMV Bld Auto 12.3fL Above high normal 606701108015 8 - 12 [facility] Basophils/leuk NFr Bld Auto 0.9% Normal 215525332284 0 - 1.4 [facility] Monocytes/leuk NFr Bld Auto 12.1% Above high normal 095404376501 4 - 12 [facility] RDW RBC Auto-Rto 15.1% Above high normal 614131617964 11 - 15 [facility] Monocytes # Bld Auto 0.35z7973/uL Normal 516285900896 0 - 1 [facility] Basophils # Bld Auto 0.77z3338/uL Normal 463087780984 0 - 1 [facility] Imm Granulocytes # Bld Auto 0.16j8401/uL Normal 509755133264 0 - 0.3 [facility] Neutrophils # Bld Auto 2.01s1071/uL Normal 233903633074 2 - 7.6 [facility] Hct VFr Bld Auto 34.8% Below low normal 504861562215 38. 5 - 50 [facility] Lymphocytes/leuk NFr Bld Auto 36.9% Normal 432841002124 17 - 50 [facility] Lymphocytes # Bld Auto 1.55u9565/uL Normal 148603869327 0.6 - 3.7 [facility] nRBC/100 WBC Bld Auto-Rto 0% Normal 637695129175 0 - 1 [facility] RBC # Bld Auto 3.98M/uL Below low normal 136103914297 4 - 6 [facility] Neutrophils/leuk NFr Bld Auto 48.6% Normal 866136553365 39 - 72 [facility] Eosinophil/leuk NFr Bld Auto 1.3% Normal 227221457625 0 - 5 [facility] Imm Granulocytes/leuk NFr Bld Auto 0.2% Normal 061364861742 0 - 1 [facility] WBC # Bld Auto 4.8n8800/uL Normal 960395479638 4 - 11 [facility] nRBC # Bld Auto 6k7898/uL Normal 267264137833 0 - 1 [facility] MCV RBC Auto 87.4fL Normal 859572548859 80 - 100 [facility] MCH RBC Qn Auto 26.4pg Below low normal 282881421995 27 - 33 [facility] Platelet # Bld Auto 231w9152/uL Normal 839674094571 150 - 420 [facility] BUN SerPl-mCnc 13mg/dL Normal 144039932373 6 - 20 [facility] Creat SerPl-mCnc 0.62mg/dL Normal 376763559869 0.4 - 1.3 [facility] Anion Gap3 SerPl-sCnc 12 Normal 088529064684 7 - 17 [facility] GFR/BSA.pred SerPlBld XHD-QYS-ZfADnu 60mL/min/1.73m2 Normal 955878015542 - [facility] HCO3 SerPl-sCnc 30mmol/L Normal 885650211876 20 - 30 [facility] Glucose SerPl-mCnc 138mg/dL Above high normal 577964126092 70 - 100 [facility] BUN/Creat SerPl 21 Normal 663801961183 8 - 23 [facility] Chloride SerPl-sCnc 104mmol/L Normal 114824095949 98 - 10 7 [facility] Calcium SerPl-mCnc 10mg/dL Normal 870575566280 8.8 - 10.2 [facility] Sodium SerPl-sCnc 146mmol/L Above high normal 999244624025 1 36 - 144 [facility] Potassium SerPl-sCnc 3.5mmol/L Normal 470104752596 3.3 - 5.3 [facility] Hgb Bld-mCnc 10.3g/dL Below low normal 118244478703 13.2 - 17.1 [facility] Eosinophil # Bld Auto 0.28f8969/uL Normal 684412907622 0 - 1 [facility] MCHC RBC Auto-mCnc 31.3g/dL Normal 249677270819 31 - 36 [facility] PMV Bld Auto 11.6fL Normal 210608366044 8 - 12 [facility] Basophils/leuk NFr Bld Auto 0.3% Normal 211069216056 0 - 1.4 [facility] Monocytes/leuk NFr Bld Auto 9.2% Normal 865307535030 4 - 12 [facility] RDW RBC Auto-Rto 15% Normal 851343008447 11 - 15 [facility] Monocytes # Bld Auto 0.72y2055/uL Normal 059530994134 0 - 1 [facility] Basophils # Bld Auto 0.65i6490/uL Normal 175187702026 0 - 1 [facility] Imm Granulocytes # Bld Auto 0.58r0764/uL Normal 463550563754 0 - 0.3 [facility] Neutrophils # Bld Auto 4.41i8933/uL Normal 379943955774 2 - 7.6 [facility] Hct VFr Bld Auto 32.9% Below low normal 355923547660 38. 5 - 50 [facility] Lymphocytes/leuk NFr Bld Auto 25.5% Normal 286089086217 17 - 50 [facility] Lymphocytes # Bld Auto 1.7h1010/uL Normal 294145123089 0.6 - 3.7 [facility] nRBC/100 WBC Bld Auto-Rto 0% Normal 810455024738 0 - 1 [facility] RBC # Bld Auto 3.79M/uL Below low normal 397331348220 4 - 6 [facility] Neutrophils/leuk NFr Bld Auto 64.6% Normal 365074943059 39 - 72 [facility] Eosinophil/leuk NFr Bld Auto 0.3% Normal 990050492905 0 - 5 [facility] Imm Granulocytes/leuk NFr Bld Auto 0.1% Normal 712357086613 0 - 1 [facility] WBC # Bld Auto 7.7v5128/uL Normal 584885679608 4 - 11 [facility] nRBC # Bld Auto 1r4788/uL Normal 395675617022 0 - 1 [facility] MCV RBC Auto 86.8fL Normal 793249627656 80 - 100 [facility] MCH RBC Qn Auto 27.2pg Normal 378187707167 27 - 33 [facility] Platelet # Bld Auto 825j5186/uL Above high normal 0951963704 42 150 - 420 [facility] INR PPP 1.04 Normal 146661361217 0.86 - 1.12 [facility] Prothrombin time 11.5seconds Normal 670089946273 9.6 - 12.3 [facility] BUN SerPl-mCnc 13mg/dL Normal 983456176785 6 - 20 [facility] Creat SerPl-mCnc 0.62mg/dL Normal [id number] 0.4 - 1.3 [facility] Anion Gap3 SerPl-sCnc 12 Normal [id number] 7 - 17 [facility] GFR/BSA.pred SerPlBld CYV-EKS-WgMLbk 60mL/min/1.73m2 Normal [id number] - [facility] HCO3 SerPl-sCnc 28mmol/L Normal [id number] 20 - 30 [facility] Glucose SerPl-mCnc 120mg/dL Above high normal [id number] 70 - 100 [facility] BUN/Creat SerPl 21 Normal [id number] 8 - 23 [facility] Chloride SerPl-sCnc 107mmol/L Normal 889835684143 98 - 10 7 [facility] Calcium SerPl-mCnc 10mg/dL Normal 310081133707 8.8 - 10.2 [facility] Sodium SerPl-sCnc 147mmol/L Above high normal 206199098478 1 36 - 144 [facility] Potassium SerPl-sCnc 3.6mmol/L Normal [id number] 3.3 - 5.3 [facility] Hgb Bld-mCnc 11g/dL Below low normal 615085847963 13.2 - 17.1 [facility] Eosinophil # Bld Auto 0.93o3351/uL Normal 695278212530 0 - 1 [facility] MCHC RBC Auto-mCnc 31.3g/dL Normal 385787990269 31 - 36 [facility] PMV Bld Auto 11.4fL Normal [id number] 8 - 12 [facility] Basophils/leuk NFr Bld Auto 0.5% Normal 601743795404 0 - 1.4 [facility] Monocytes/leuk NFr Bld Auto 9.5% Normal 627465118152 4 - 12 [facility] RDW RBC Auto-Rto 14.6% Normal 464575440394 11 - 15 [facility] Monocytes # Bld Auto 0.95t5595/uL Normal 293206522392 0 - 1 [facility] Basophils # Bld Auto 0.05o4023/uL Normal 418165289490 0 - 1 [facility] Imm Granulocytes # Bld Auto 0.24p8287/uL Normal 233347408542 0 - 0.3 [facility] Neutrophils # Bld Auto 3.76z3510/uL Normal [id number] 2 - 7.6 [facility] Hct VFr Bld Auto 35.1% Below low normal [id number] 38. 5 - 50 [facility] Lymphocytes/leuk NFr Bld Auto 31.9% Normal [id number] 17 - 50 [facility] Lymphocytes # Bld Auto 1.56q2804/uL Normal [id number] 0.6 - 3.7 [facility] nRBC/100 WBC Bld Auto-Rto 0% Normal [id number] 0 - 1 [facility] RBC # Bld Auto 4.05M/uL Normal 973799798294 4 - 6 [facility] Neutrophils/leuk NFr Bld Auto 56.5% Normal 995007174917 39 - 72 [facility] Eosinophil/leuk NFr Bld Auto 1.4% Normal 729230344776 0 - 5 [facility] Imm Granulocytes/leuk NFr Bld Auto 0.2% Normal 750569765586 0 - 1 [facility] WBC # Bld Auto 5.0g0373/uL Normal 301802909812 4 - 11 [facility] nRBC # Bld Auto 7e1647/uL Normal 675468729433 0 - 1 [facility] MCV RBC Auto 86.7fL Normal 774144520447 80 - 100 [facility] MCH RBC Qn Auto 27.2pg Normal 765636742048 27 - 33 [facility] Platelet # Bld Auto 835f9925/uL Above high normal 2019972416 52 150 - 420 [facility] BUN SerPl-mCnc 17mg/dL Normal 878834493929 6 - 20 [facility] Creat SerPl-mCnc 0.58mg/dL Normal 146310167648 0.4 - 1.3 [facility] Anion Gap3 SerPl-sCnc 10 Normal 288850570090 7 - 17 [facility] GFR/BSA.pred SerPlBld UNR-HKY-HpGLxb 60mL/min/1.73m2 Normal [id number] - [facility] HCO3 SerPl-sCnc 33mmol/L Above high normal 761706406015 20 - 30 [facility] Glucose SerPl-mCnc 114mg/dL Above high normal 299813753574 70 - 100 [facility] BUN/Creat SerPl 29.3 Above high normal 331436582337 8 - 23 [facility] Chloride SerPl-sCnc 103mmol/L Normal 819612587067 98 - 10 7 [facility] Calcium SerPl-mCnc 9.1mg/dL Normal 8.8 - 10.2 [facility] Sodium SerPl-sCnc 146mmol/L Above high normal 682575063674 1 36 - 144 [facility] Potassium SerPl-sCnc 3.6mmol/L Normal 3.3 - 5.3 [facility] Hgb Bld-mCnc 9.2g/dL Below low normal 701806003164 13.2 - 17.1 [facility] Eosinophil # Bld Auto 0.87c7578/uL Normal 0 - 1 [facility] MCHC RBC Auto-mCnc 31.6g/dL Normal [id number] 31 - 36 [facility] PMV Bld Auto 11.5fL Normal 8 - 12 [facility] Basophils/leuk NFr Bld Auto 0.7% Normal [id number] 0 - 1.4 [facility] Monocytes/leuk NFr Bld Auto 11.4% Normal [id number] 4 - 12 [facility] RDW RBC Auto-Rto 14.2% Normal 11 - 15 [facility] Monocytes # Bld Auto 0.3b4979/uL Normal 696432228042 0 - 1 [facility] Basophils # Bld Auto 0.34b2972/uL Normal 566824069437 0 - 1 [facility] Imm Granulocytes # Bld Auto 0.08g9770/uL Normal 673877135903 0 - 0.3 [facility] Neutrophils # Bld Auto 2.00z4395/uL Normal 657695610775 2 - 7.6 [facility] Hct VFr Bld Auto 29.1% Below low normal 479591658790 38. 5 - 50 [facility] Lymphocytes/leuk NFr Bld Auto 35% Normal 049520204155 17 - 50 [facility] Lymphocytes # Bld Auto 1.69a9135/uL Normal [id number] 0.6 - 3.7 [facility] nRBC/100 WBC Bld Auto-Rto 0% Normal 0 - 1 [facility] RBC # Bld Auto 3.33M/uL Below low normal 806404048368 4 - 6 [facility] Neutrophils/leuk NFr Bld Auto 50.2% Normal 39 - 72 [facility] Eosinophil/leuk NFr Bld Auto 2.5% Normal 663422151134 0 - 5 [facility] Imm Granulocytes/leuk NFr Bld Auto 0.2% Normal 0 - 1 [facility] WBC # Bld Auto 4.2i2784/uL Normal 490212412373 4 - 11 [facility] nRBC # Bld Auto 3t4696/uL Normal 0 - 1 [facility] MCV RBC Auto 87.4fL Normal 413858313276 80 - 100 [facility] MCH RBC Qn Auto 27.6pg Normal 27 - 33 [facility] Platelet # Bld Auto 784x9596/uL Normal [id number] 150 - 420 [facility] BUN SerPl-mCnc 17mg/dL Normal 6 - 20 [facility] Creat SerPl-mCnc 0.62mg/dL Normal 0.4 - 1.3 [facility] Anion Gap3 SerPl-sCnc 12 Normal 7 - 17 [facility] GFR/BSA.pred SerPlBld KJZ-UBS-BoCQak 60mL/min/1.73m2 Normal - [facility] HCO3 SerPl-sCnc 30mmol/L Normal [id number] 20 - 30 [facility] Glucose SerPl-mCnc 139mg/dL Above high normal 659751910337 70 - 100 [facility] BUN/Creat SerPl 27.4 Above high normal 8 - 23 [facility] Chloride SerPl-sCnc 101mmol/L Normal [id number] 98 - 10 7 [facility] Calcium SerPl-mCnc 9.7mg/dL Normal 8.8 - 10.2 [facility] Sodium SerPl-sCnc 143mmol/L Normal 136 - 144 [facility] Potassium SerPl-sCnc 3.3mmol/L Normal 3.3 - 5.3 [facility] BUN SerPl-mCnc 24mg/dL Above high normal 6 - 20 [facility] Creat SerPl-mCnc 0.6mg/dL Normal 0.4 - 1.3 [facility] Anion Gap3 SerPl-sCnc 12 Normal 7 - 17 [facility] GFR/BSA.pred SerPlBld UFE-BDH-RvJMgl 60mL/min/1.73m2 Normal - [facility] HCO3 SerPl-sCnc 31mmol/L Above high normal 20 - 30 [facility] Glucose SerPl-mCnc 157mg/dL Above high normal 70 - 100 [facility] BUN/Creat SerPl 40 Above high normal 8 - 23 [facility] Chloride SerPl-sCnc 102mmol/L Normal 98 - 10 7 [facility] Calcium SerPl-mCnc 9.7mg/dL Normal 8.8 - 10.2 [facility] Sodium SerPl-sCnc 145mmol/L Above high normal 1 36 - 144 [facility] Potassium SerPl-sCnc 3.6mmol/L Normal 3.3 - 5.3 [facility] BUN SerPl-mCnc 22mg/dL Above high normal [id number] 6 - 20 [facility] Creat SerPl-mCnc 0.64mg/dL Normal [id number] 0.4 - 1.3 [facility] Anion Gap3 SerPl-sCnc 11 Normal [id number] 7 - 17 [facility] GFR/BSA.pred SerPlBld SWB-HGN-DuTYha 60mL/min/1.73m2 Normal 748470796316 - [facility] HCO3 SerPl-sCnc 31mmol/L Above high normal 085047149414 20 - 30 [facility] Glucose SerPl-mCnc 140mg/dL Above high normal 432715046934 70 - 100 [facility] BUN/Creat SerPl 34.4 Above high normal 158763368393 8 - 23 [facility] Chloride SerPl-sCnc 107mmol/L Normal 129355922771 98 - 10 7 [facility] Calcium SerPl-mCnc 9.7mg/dL Normal 912043114144 8.8 - 10.2 [facility] Sodium SerPl-sCnc 149mmol/L Above high normal 788321496682 1 36 - 144 [facility] Potassium SerPl-sCnc 3.4mmol/L Normal 841462033797 3.3 - 5.3 [facility] Hgb Bld-mCnc 9.9g/dL Below low normal 621953118997 13.2 - 17.1 [facility] Eosinophil # Bld Auto 0.38c4695/uL Normal 496152988653 0 - 1 [facility] MCHC RBC Auto-mCnc 30.9g/dL Below low normal 368951314813 3 1 - 36 [facility] PMV Bld Auto 11.2fL Normal 895275267071 8 - 12 [facility] Basophils/leuk NFr Bld Auto 0.6% Normal 709788290268 0 - 1.4 [facility] Monocytes/leuk NFr Bld Auto 11.2% Normal [id number] 4 - 12 [facility] RDW RBC Auto-Rto 15% Normal [id number] 11 - 15 [facility] Monocytes # Bld Auto 0.02q6779/uL Normal 447403044076 0 - 1 [facility] Basophils # Bld Auto 0.92n9230/uL Normal 548281997546 0 - 1 [facility] Imm Granulocytes # Bld Auto 0.82p8716/uL Normal 919121458568 0 - 0.3 [facility] Neutrophils # Bld Auto 2.55e9978/uL Normal 554836191221 2 - 7.6 [facility] Hct VFr Bld Auto 32% Below low normal 782077902585 38. 5 - 50 [facility] Lymphocytes/leuk NFr Bld Auto 33.3% Normal [id number] 17 - 50 [facility] Lymphocytes # Bld Auto 1.73o9647/uL Normal 508134037942 0.6 - 3.7 [facility] nRBC/100 WBC Bld Auto-Rto 0% Normal 827369721509 0 - 1 [facility] RBC # Bld Auto 3.64M/uL Below low normal 072214431817 4 - 6 [facility] Neutrophils/leuk NFr Bld Auto 53.5% Normal 369110330419 39 - 72 [facility] Eosinophil/leuk NFr Bld Auto 1% Normal 458760315555 0 - 5 [facility] Imm Granulocytes/leuk NFr Bld Auto 0.4% Normal 456796609175 0 - 1 [facility] WBC # Bld Auto 5.0b7217/uL Normal 237247602860 4 - 11 [facility] nRBC # Bld Auto 7r9682/uL Normal 987243119488 0 - 1 [facility] MCV RBC Auto 87.9fL Normal 954116115938 80 - 100 [facility] MCH RBC Qn Auto 27.2pg Normal [id number] 27 - 33 [facility] Platelet # Bld Auto 414e6886/uL Above high normal 3863107958 42 150 - 420 [facility] BUN SerPl-mCnc 25mg/dL Above high normal 117170804053 6 - 20 [facility] Creat SerPl-mCnc 0.64mg/dL Normal 240697892943 0.4 - 1.3 [facility] Anion Gap3 SerPl-sCnc 11 Normal 7 - 17 [facility] GFR/BSA.pred SerPlBld XZA-WHT-LmABhs 60mL/min/1.73m2 Normal - [facility] HCO3 SerPl-sCnc 30mmol/L Normal 20 - 30 [facility] Glucose SerPl-mCnc 133mg/dL Above high normal 70 - 100 [facility] BUN/Creat SerPl 39.1 Above high normal 8 - 23 [facility] Chloride SerPl-sCnc 105mmol/L Normal 98 - 10 7 [facility] Calcium SerPl-mCnc 10.1mg/dL Normal 8.8 - 10.2 [facility] Sodium SerPl-sCnc 146mmol/L Above high normal 1 36 - 144 [facility] Potassium SerPl-sCnc 4mmol/L Normal 3.3 - 5.3 [facility] Hgb Bld-mCnc 10.8g/dL Below low normal 13.2 - 17.1 [facility] Eosinophil # Bld Auto 0.36n2872/uL Normal 0 - 1 [facility] MCHC RBC Auto-mCnc 31.8g/dL Normal 31 - 36 [facility] PMV Bld Auto 11fL Normal 915397568235 8 - 12 [facility] Basophils/leuk NFr Bld Auto 0.6% Normal 0 - 1.4 [facility] Monocytes/leuk NFr Bld Auto 12.6% Above high normal 4 - 12 [facility] RDW RBC Auto-Rto 15% Normal 11 - 15 [facility] Monocytes # Bld Auto 0.07q5575/uL Normal 0 - 1 [facility] Basophils # Bld Auto 0.02t3922/uL Normal 0 - 1 [facility] Imm Granulocytes # Bld Auto 0.63d3687/uL Normal 0 - 0.3 [facility] Neutrophils # Bld Auto 3.37a2369/uL Normal 941759364562 2 - 7.6 [facility] Hct VFr Bld Auto 34% Below low normal 085299869576 38. 5 - 50 [facility] Lymphocytes/leuk NFr Bld Auto 29.9% Normal [id number] 17 - 50 [facility] Lymphocytes # Bld Auto 2.72t4946/uL Normal 166611761316 0.6 - 3.7 [facility] nRBC/100 WBC Bld Auto-Rto 0% Normal 992906625711 0 - 1 [facility] RBC # Bld Auto 3.79M/uL Below low normal 413113391477 4 - 6 [facility] Neutrophils/leuk NFr Bld Auto 55.9% Normal 596507236316 39 - 72 [facility] Eosinophil/leuk NFr Bld Auto 0.7% Normal 952893937690 0 - 5 [facility] Imm Granulocytes/leuk NFr Bld Auto 0.3% Normal 742617290904 0 - 1 [facility] WBC # Bld Auto 6.9v1893/uL Normal [id number] 4 - 11 [facility] nRBC # Bld Auto 5v9280/uL Normal 373129139657 0 - 1 [facility] MCV RBC Auto 89.7fL Normal 935802253712 80 - 100 [facility] MCH RBC Qn Auto 28.5pg Normal 790006300421 27 - 33 [facility] Platelet # Bld Auto 654w8196/uL Above high normal 5182737800 57 150 - 420 [facility] BUN SerPl-mCnc 22mg/dL Above high normal 902373378704 6 - 20 [facility] Creat SerPl-mCnc 0.64mg/dL Normal [id number] 0.4 - 1.3 [facility] Anion Gap3 SerPl-sCnc 10 Normal [id number] 7 - 17 [facility] GFR/BSA.pred SerPlBld NZQ-AHU-HjHKzc 60mL/min/1.73m2 Normal 182869633136 - [facility] HCO3 SerPl-sCnc 30mmol/L Normal 658374101478 20 - 30 [facility] Glucose SerPl-mCnc 140mg/dL Above high normal 883362788388 70 - 100 [facility] BUN/Creat SerPl 34.4 Above high normal 765868889264 8 - 23 [facility] Chloride SerPl-sCnc 106mmol/L Normal 171786994051 98 - 10 7 [facility] Calcium SerPl-mCnc 10.3mg/dL Above high normal 1126441033 52 8.8 - 10.2 [facility] Sodium SerPl-sCnc 146mmol/L Above high normal 215152641281 1 36 - 144 [facility] Potassium SerPl-sCnc 3.8mmol/L Normal 475527261282 3.3 - 5.3 [facility] Hgb Bld-mCnc 9.6g/dL Below low normal 536955526229 13.2 - 17.1 [facility] Eosinophil # Bld Auto 0.14e7490/uL Normal 897765932514 0 - 1 [facility] MCHC RBC Auto-mCnc 31.1g/dL Normal 101466248976 31 - 36 [facility] PMV Bld Auto 11.2fL Normal 177735875563 8 - 12 [facility] Basophils/leuk NFr Bld Auto 0.5% Normal 984319447873 0 - 1.4 [facility] Monocytes/leuk NFr Bld Auto 10.4% Normal 818479351807 4 - 12 [facility] RDW RBC Auto-Rto 14.7% Normal 842760527702 11 - 15 [facility] Monocytes # Bld Auto 0.92n9441/uL Normal 819496014113 0 - 1 [facility] Basophils # Bld Auto 0.65n6037/uL Normal 724244234742 0 - 1 [facility] Imm Granulocytes # Bld Auto 0.27l1307/uL Normal 505826066528 0 - 0.3 [facility] Neutrophils # Bld Auto 4.10x1779/uL Normal 212505282446 2 - 7.6 [facility] Hct VFr Bld Auto 30.9% Below low normal 770239882032 38. 5 - 50 [facility] Lymphocytes/leuk NFr Bld Auto 24.4% Normal 450826461099 17 - 50 [facility] Lymphocytes # Bld Auto 1.59q8894/uL Normal 277678869959 0.6 - 3.7 [facility] nRBC/100 WBC Bld Auto-Rto 0% Normal 504037460739 0 - 1 [facility] RBC # Bld Auto 3.51M/uL Below low normal 674893244118 4 - 6 [facility] Neutrophils/leuk NFr Bld Auto 62.4% Normal 147768953336 39 - 72 [facility] Eosinophil/leuk NFr Bld Auto 2% Normal 119639051034 0 - 5 [facility] Imm Granulocytes/leuk NFr Bld Auto 0.3% Normal 986604886991 0 - 1 [facility] WBC # Bld Auto 7.0u6765/uL Normal 922231175853 4 - 11 [facility] nRBC # Bld Auto 0d5594/uL Normal 145099655418 0 - 1 [facility] MCV RBC Auto 88fL Normal 039549162600 80 - 100 [facility] MCH RBC Qn Auto 27.4pg Normal 574124704946 27 - 33 [facility] Platelet # Bld Auto 551z5395/uL Above high normal 5315778938 40 150 - 420 [facility] Phosphate SerPl-mCnc 4.6mg/dL Above high normal 961986354158 2.2 - 4.5 [facility] BUN SerPl-mCnc 26mg/dL Above high normal 215957716816 6 - 20 [facility] Creat SerPl-mCnc 0.63mg/dL Normal 258046391875 0.4 - 1.3 [facility] Anion Gap3 SerPl-sCnc 9 Normal 471941593583 7 - 17 [facility] GFR/BSA.pred SerPlBld BXL-IOJ-ExTCab 60mL/min/1.73m2 Normal 500229901724 - [facility] HCO3 SerPl-sCnc 29mmol/L Normal [id number] 20 - 30 [facility] Glucose SerPl-mCnc 137mg/dL Above high normal 115003826565 70 - 100 [facility] BUN/Creat SerPl 41.3 Above high normal 454777715058 8 - 23 [facility] Chloride SerPl-sCnc 106mmol/L Normal 521595082343 98 - 10 7 [facility] Calcium SerPl-mCnc 9.9mg/dL Normal 110210095012 8.8 - 10.2 [facility] Sodium SerPl-sCnc 144mmol/L Normal 719097145245 136 - 144 [facility] Potassium SerPl-sCnc 3.8mmol/L Normal 707910474948 3.3 - 5.3 [facility] Magnesium SerPl-mCnc 2.2mg/dL Normal 079365674450 1.7 - 2.4 [facility] Hgb Bld-mCnc 8.8g/dL Below low normal 240679413415 13.2 - 17.1 [facility] Eosinophil # Bld Auto 0.92b5794/uL Normal 718718125437 0 - 1 [facility] MCHC RBC Auto-mCnc 31.5g/dL Normal 024031565255 31 - 36 [facility] PMV Bld Auto 10.8fL Normal 397257110706 8 - 12 [facility] Basophils/leuk NFr Bld Auto 0.7% Normal 353095136805 0 - 1.4 [facility] Monocytes/leuk NFr Bld Auto 12.8% Above high normal 478269445228 4 - 12 [facility] RDW RBC Auto-Rto 14.9% Normal 173893019176 11 - 15 [facility] Monocytes # Bld Auto 0.52o2352/uL Normal 148712663999 0 - 1 [facility] Basophils # Bld Auto 0.82b9227/uL Normal 034028028434 0 - 1 [facility] Imm Granulocytes # Bld Auto 0.55e0250/uL Normal 129444441588 0 - 0.3 [facility] Neutrophils # Bld Auto 2.36m2286/uL Normal 215702902976 2 - 7.6 [facility] Hct VFr Bld Auto 27.9% Below low normal 262363956905 38. 5 - 50 [facility] Lymphocytes/leuk NFr Bld Auto 28.3% Normal 498634092971 17 - 50 [facility] Lymphocytes # Bld Auto 1.08l7160/uL Normal 401360703057 0.6 - 3.7 [facility] nRBC/100 WBC Bld Auto-Rto 0% Normal 699913211123 0 - 1 [facility] RBC # Bld Auto 3.13M/uL Below low normal 025026852484 4 - 6 [facility] Neutrophils/leuk NFr Bld Auto 54.8% Normal 517536001953 39 - 72 [facility] Eosinophil/leuk NFr Bld Auto 3.2% Normal 680107461654 0 - 5 [facility] Imm Granulocytes/leuk NFr Bld Auto 0.2% Normal 577610635612 0 - 1 [facility] WBC # Bld Auto 5.6l3133/uL Normal 275938708366 4 - 11 [facility] nRBC # Bld Auto 4v9454/uL Normal 391908335174 0 - 1 [facility] MCV RBC Auto 89.1fL Normal 362145588240 80 - 100 [facility] MCH RBC Qn Auto 28.1pg Normal 386935884826 27 - 33 [facility] Platelet # Bld Auto 170q6391/uL Above high normal 3304605734 51 150 - 420 [facility] SPECIMEN EXPIRATION DATE AND TIME 01/18/2024 23:59 Normal [id number] [facility] ABO GROUPING O Normal [facility] ANTIBODY SCREEN NEG Normal [facility] RH TYPE POS Normal [facility] Prealb SerPl Neph-mCnc 19.9mg/dL Below low normal 063825949488 20 - 40 [facility] BUN SerPl-mCnc 24mg/dL Above high normal 002150969132 6 - 20 [facility] Creat SerPl-mCnc 0.53mg/dL Normal 0.4 - 1.3 [facility] Anion Gap3 SerPl-sCnc 11 Normal 514946034089 7 - 17 [facility] GFR/BSA.pred SerPlBld PIZ-HNY-FpNOwo 60mL/min/1.73m2 Normal - [facility] HCO3 SerPl-sCnc 27mmol/L Normal 20 - 30 [facility] Glucose SerPl-mCnc 151mg/dL Above high normal 70 - 100 [facility] BUN/Creat SerPl 45.3 Above high normal 8 - 23 [facility] Chloride SerPl-sCnc 106mmol/L Normal 98 - 10 7 [facility] Calcium SerPl-mCnc 9.3mg/dL Normal 8.8 - 10.2 [facility] Sodium SerPl-sCnc 144mmol/L Normal 136 - 144 [facility] Potassium SerPl-sCnc 3.6mmol/L Normal 3.3 - 5.3 [facility] Phosphate SerPl-mCnc 3.7mg/dL Normal 2.2 - 4.5 [facility] CRP SerPl HS-mCnc 4.2mg/L Above high normal - [facility] Magnesium SerPl-mCnc 2mg/dL Normal 1.7 - 2.4 [facility] Hgb Bld-mCnc 8.5g/dL Below low normal 13.2 - 17.1 [facility] Eosinophil # Bld Auto 0.41m5978/uL Normal 0 - 1 [facility] MCHC RBC Auto-mCnc 31.7g/dL Normal 31 - 36 [facility] PMV Bld Auto 10.8fL Normal 8 - 12 [facility] Basophils/leuk NFr Bld Auto 0.5% Normal 0 - 1.4 [facility] Monocytes/leuk NFr Bld Auto 10.2% Normal 4 - 12 [facility] RDW RBC Auto-Rto 14.6% Normal 11 - 15 [facility] Monocytes # Bld Auto 0.49n9103/uL Normal 0 - 1 [facility] Basophils # Bld Auto 0.50v4711/uL Normal 278212514789 0 - 1 [facility] Imm Granulocytes # Bld Auto 0.64n5852/uL Normal 515213093771 0 - 0.3 [facility] Neutrophils # Bld Auto 4.96y5403/uL Normal [id number] 2 - 7.6 [facility] Hct VFr Bld Auto 26.8% Below low normal 205390126536 38. 5 - 50 [facility] Lymphocytes/leuk NFr Bld Auto 21.6% Normal 345198809150 17 - 50 [facility] Lymphocytes # Bld Auto 1.22f1044/uL Normal 751859037735 0.6 - 3.7 [facility] nRBC/100 WBC Bld Auto-Rto 0% Normal 370561022318 0 - 1 [facility] RBC # Bld Auto 3.08M/uL Below low normal 832986356140 4 - 6 [facility] Neutrophils/leuk NFr Bld Auto 66.1% Normal 109648103629 39 - 72 [facility] Eosinophil/leuk NFr Bld Auto 1.1% Normal 422009378401 0 - 5 [facility] Imm Granulocytes/leuk NFr Bld Auto 0.5% Normal 254879105189 0 - 1 [facility] WBC # Bld Auto 6.7f1246/uL Normal 024074108137 4 - 11 [facility] nRBC # Bld Auto 5i3771/uL Normal 348746661169 0 - 1 [facility] MCV RBC Auto 87fL Normal 143172950336 80 - 100 [facility] MCH RBC Qn Auto 27.6pg Normal 165047231681 27 - 33 [facility] Platelet # Bld Auto 554c4631/uL Above high normal 8236299348 42 150 - 420 [facility] INR PPP 1.03 Normal 132750022473 0.86 - 1.12 [facility] Prothrombin time 11.4seconds Normal 744072682346 9.6 - 12.3 [facility] aPTT PPP 39.1seconds Above high normal 086410970409 23 - 31 .4 [facility] BUN SerPl-mCnc 23mg/dL Above high normal 896252912137 6 - 20 [facility] Creat SerPl-mCnc 0.57mg/dL Normal 0.4 - 1.3 [facility] Anion Gap3 SerPl-sCnc 9 Normal 7 - 17 [facility] GFR/BSA.pred SerPlBld CWW-FKB-FhUAhq 60mL/min/1.73m2 Normal - [facility] HCO3 SerPl-sCnc 29mmol/L Normal 20 - 30 [facility] Glucose SerPl-mCnc 122mg/dL Above high normal 70 - 100 [facility] BUN/Creat SerPl 40.4 Above high normal 8 - 23 [facility] Chloride SerPl-sCnc 105mmol/L Normal 98 - 10 7 [facility] Calcium SerPl-mCnc 9.4mg/dL Normal 8.8 - 10.2 [facility] Sodium SerPl-sCnc 143mmol/L Normal 136 - 144 [facility] Potassium SerPl-sCnc 3.7mmol/L Normal 3.3 - 5.3 [facility] Phosphate SerPl-mCnc 3.8mg/dL Normal 2.2 - 4.5 [facility] Magnesium SerPl-mCnc 2mg/dL Normal 1.7 - 2.4 [facility] Hgb Bld-mCnc 8.3g/dL Below low normal 509130017573 13.2 - 17.1 [facility] Eosinophil # Bld Auto 0.25d2845/uL Normal 662831917467 0 - 1 [facility] MCHC RBC Auto-mCnc 30.7g/dL Below low normal 3 1 - 36 [facility] PMV Bld Auto 10.4fL Normal 8 - 12 [facility] Basophils/leuk NFr Bld Auto 0.6% Normal 0 - 1.4 [facility] Monocytes/leuk NFr Bld Auto 11.1% Normal 898644700117 4 - 12 [facility] RDW RBC Auto-Rto 14.5% Normal 604223470515 11 - 15 [facility] Monocytes # Bld Auto 0.91u3394/uL Normal 829058230982 0 - 1 [facility] Basophils # Bld Auto 0.61u7268/uL Normal 882565859347 0 - 1 [facility] Imm Granulocytes # Bld Auto 0.23p6472/uL Normal 922748853891 0 - 0.3 [facility] Neutrophils # Bld Auto 3.80s9725/uL Normal 464225821416 2 - 7.6 [facility] Hct VFr Bld Auto 27% Below low normal 517710266778 38. 5 - 50 [facility] Lymphocytes/leuk NFr Bld Auto 28.4% Normal 480397228606 17 - 50 [facility] Lymphocytes # Bld Auto 1.75y8241/uL Normal 695558739047 0.6 - 3.7 [facility] nRBC/100 WBC Bld Auto-Rto 0% Normal 853909272977 0 - 1 [facility] RBC # Bld Auto 3.05M/uL Below low normal 373521362044 4 - 6 [facility] Neutrophils/leuk NFr Bld Auto 55.2% Normal 723842964962 39 - 72 [facility] Eosinophil/leuk NFr Bld Auto 4.2% Normal 217332021084 0 - 5 [facility] Imm Granulocytes/leuk NFr Bld Auto 0.5% Normal 486189470575 0 - 1 [facility] WBC # Bld Auto 6.0r6139/uL Normal 924080946238 4 - 11 [facility] nRBC # Bld Auto 7j0896/uL Normal 322327806634 0 - 1 [facility] MCV RBC Auto 88.5fL Normal 093192427266 80 - 100 [facility] MCH RBC Qn Auto 27.2pg Normal 102876062867 27 - 33 [facility] Platelet # Bld Auto 056s4586/uL Above high normal 8835249374 16 150 - 420 [facility] Procalcitonin SerPl-mCnc 0.06ng/mL Normal 620761350843 - [facility] SPECIMEN EXPIRATION DATE AND TIME 01/14/2024 23:59 Normal [id number] [facility] ABO GROUPING O Normal 446079857596 [facility] ANTIBODY SCREEN NEG Normal 356851282062 [facility] RH TYPE POS Normal 892520922217 [facility] BUN SerPl-mCnc 24mg/dL Above high normal 652487590925 6 - 20 [facility] Creat SerPl-mCnc 0.58mg/dL Normal [id number] 0.4 - 1.3 [facility] Anion Gap3 SerPl-sCnc 11 Normal 986777120665 7 - 17 [facility] GFR/BSA.pred SerPlBld MUB-ODS-NzDCqh 60mL/min/1.73m2 Normal 245210895651 - [facility] HCO3 SerPl-sCnc 29mmol/L Normal 536975559597 20 - 30 [facility] Glucose SerPl-mCnc 128mg/dL Above high normal 390497082746 70 - 100 [facility] BUN/Creat SerPl 41.4 Above high normal 421555266816 8 - 23 [facility] Chloride SerPl-sCnc 107mmol/L Normal 018864862091 98 - 10 7 [facility] Calcium SerPl-mCnc 9.9mg/dL Normal 446209280296 8.8 - 10.2 [facility] Sodium SerPl-sCnc 147mmol/L Above high normal 869412317909 1 36 - 144 [facility] Potassium SerPl-sCnc 4.2mmol/L Normal 370071608268 3.3 - 5.3 [facility] Phosphate SerPl-mCnc 3.4mg/dL Normal 090570526400 2.2 - 4.5 [facility] Magnesium SerPl-mCnc 2mg/dL Normal 139407499937 1.7 - 2.4 [facility] Hgb Bld-mCnc 9.2g/dL Below low normal 249251905649 13.2 - 17.1 [facility] Eosinophil # Bld Auto 0.1l4015/uL Normal 268913013542 0 - 1 [facility] MCHC RBC Auto-mCnc 31.7g/dL Normal 417141183362 31 - 36 [facility] PMV Bld Auto 10.8fL Normal 260443606654 8 - 12 [facility] Basophils/leuk NFr Bld Auto 0.6% Normal 340774036646 0 - 1.4 [facility] Monocytes/leuk NFr Bld Auto 8.7% Normal 150727741366 4 - 12 [facility] RDW RBC Auto-Rto 14.2% Normal 481555500516 11 - 15 [facility] Monocytes # Bld Auto 0.08a6941/uL Normal 421197433105 0 - 1 [facility] Basophils # Bld Auto 0.28u8564/uL Normal 798146486297 0 - 1 [facility] Imm Granulocytes # Bld Auto 0.18a0509/uL Normal 271922410650 0 - 0.3 [facility] Neutrophils # Bld Auto 4.16w0009/uL Normal 108914382065 2 - 7.6 [facility] Hct VFr Bld Auto 29% Below low normal 917919300623 38. 5 - 50 [facility] Lymphocytes/leuk NFr Bld Auto 29.8% Normal 254262665951 17 - 50 [facility] Lymphocytes # Bld Auto 2.50b8974/uL Normal 700634361394 0.6 - 3.7 [facility] nRBC/100 WBC Bld Auto-Rto 0% Normal 865073641708 0 - 1 [facility] RBC # Bld Auto 3.26M/uL Below low normal 543163812653 4 - 6 [facility] Neutrophils/leuk NFr Bld Auto 57.6% Normal 168558199945 39 - 72 [facility] Eosinophil/leuk NFr Bld Auto 2.9% Normal 073085348233 0 - 5 [facility] Imm Granulocytes/leuk NFr Bld Auto 0.4% Normal 810314880499 0 - 1 [facility] WBC # Bld Auto 3k7253/uL Normal 588884717639 4 - 11 [facility] nRBC # Bld Auto 2t8246/uL Normal 978631588358 0 - 1 [facility] MCV RBC Auto 89fL Normal 780718587574 80 - 100 [facility] MCH RBC Qn Auto 28.2pg Normal 065880208530 27 - 33 [facility] Platelet # Bld Auto 067f7696/uL Above high normal 1624325458 43 150 - 420 [facility] Phosphate SerPl-mCnc 3.6mg/dL Normal 212503573742 2.2 - 4.5 [facility] Magnesium SerPl-mCnc 2mg/dL Normal 543229426751 1.7 - 2.4 [facility] BUN SerPl-mCnc 27mg/dL Above high normal 653604199152 6 - 20 [facility] Creat SerPl-mCnc 0.58mg/dL Normal 153395475973 0.4 - 1.3 [facility] Anion Gap3 SerPl-sCnc 11 Normal [id number] 7 - 17 [facility] GFR/BSA.pred SerPlBld TYJ-CJK-HeXHuj 60mL/min/1.73m2 Normal 515210418005 - [facility] HCO3 SerPl-sCnc 28mmol/L Normal 826224985731 20 - 30 [facility] Glucose SerPl-mCnc 145mg/dL Above high normal 097014769858 70 - 100 [facility] BUN/Creat SerPl 46.6 Above high normal 124711285322 8 - 23 [facility] Chloride SerPl-sCnc 108mmol/L Above high normal 841744203905 98 - 107 [facility] Calcium SerPl-mCnc 9.8mg/dL Normal 121706571303 8.8 - 10.2 [facility] Sodium SerPl-sCnc 147mmol/L Above high normal 696972511599 1 36 - 144 [facility] Potassium SerPl-sCnc 4.1mmol/L Normal [id number] 3.3 - 5.3 [facility] INR PPP 0.99 Normal 649751716719 0.86 - 1.12 [facility] Prothrombin time 11seconds Normal 711555831282 9.6 - 12.3 [facility] aPTT PPP 40.1seconds Above high normal 755288871450 23 - 31 .4 [facility] Hgb Bld-mCnc 8.5g/dL Below low normal 351742566550 13.2 - 17.1 [facility] Eosinophil # Bld Auto 0.11r7192/uL Normal [id number] 0 - 1 [facility] MCHC RBC Auto-mCnc 30.5g/dL Below low normal 290772016552 3 1 - 36 [facility] PMV Bld Auto 10.8fL Normal 411309814734 8 - 12 [facility] Basophils/leuk NFr Bld Auto 0.6% Normal 758373558687 0 - 1.4 [facility] Monocytes/leuk NFr Bld Auto 11.3% Normal [id number] 4 - 12 [facility] RDW RBC Auto-Rto 14.5% Normal [id number] 11 - 15 [facility] Monocytes # Bld Auto 0.63n3943/uL Normal 385127155808 0 - 1 [facility] Basophils # Bld Auto 0.77w0885/uL Normal [id number] 0 - 1 [facility] Imm Granulocytes # Bld Auto 0.75l1030/uL Normal 665633148545 0 - 0.3 [facility] Neutrophils # Bld Auto 2.78h7958/uL Normal 583494095490 2 - 7.6 [facility] Hct VFr Bld Auto 27.9% Below low normal 169493936169 38. 5 - 50 [facility] Lymphocytes/leuk NFr Bld Auto 29.8% Normal 719177241082 17 - 50 [facility] Lymphocytes # Bld Auto 1.16x3537/uL Normal 787143282764 0.6 - 3.7 [facility] nRBC/100 WBC Bld Auto-Rto 0% Normal 147100121970 0 - 1 [facility] RBC # Bld Auto 3.1M/uL Below low normal 920644740203 4 - 6 [facility] Neutrophils/leuk NFr Bld Auto 54.8% Normal 038834743110 39 - 72 [facility] Eosinophil/leuk NFr Bld Auto 3.1% Normal 498509452166 0 - 5 [facility] Imm Granulocytes/leuk NFr Bld Auto 0.4% Normal 812468115475 0 - 1 [facility] WBC # Bld Auto 4.4e1119/uL Normal 597373456045 4 - 11 [facility] nRBC # Bld Auto 9w0270/uL Normal 917494986390 0 - 1 [facility] MCV RBC Auto 90fL Normal 946354317991 80 - 100 [facility] MCH RBC Qn Auto 27.4pg Normal 737883056019 27 - 33 [facility] Platelet # Bld Auto 166e5395/uL Above high normal 7260813709 43 150 - 420 [facility] Hgb Bld-mCnc 8.9g/dL Below low normal 060627780199 13.2 - 17.1 [facility] Eosinophil # Bld Auto 0.73j6364/uL Normal 085300630959 0 - 1 [facility] MCHC RBC Auto-mCnc 31g/dL Normal 392770566764 31 - 36 [facility] PMV Bld Auto 10.9fL Normal 659128643530 8 - 12 [facility] Basophils/leuk NFr Bld Auto 0.8% Normal 839957135692 0 - 1.4 [facility] Monocytes/leuk NFr Bld Auto 9.1% Normal 873457349816 4 - 12 [facility] RDW RBC Auto-Rto 14.4% Normal 356449204418 11 - 15 [facility] Monocytes # Bld Auto 0.11w9398/uL Normal 594812376648 0 - 1 [facility] Basophils # Bld Auto 0.43q0672/uL Normal 605196260681 0 - 1 [facility] Imm Granulocytes # Bld Auto 0.50b4560/uL Normal 043186950312 0 - 0.3 [facility] Neutrophils # Bld Auto 3y9891/uL Normal 999777802932 2 - 7.6 [facility] Hct VFr Bld Auto 28.7% Below low normal 534314637518 38. 5 - 50 [facility] Lymphocytes/leuk NFr Bld Auto 23.8% Normal 947029862933 17 - 50 [facility] Lymphocytes # Bld Auto 1.4x4603/uL Normal [id number] 0.6 - 3.7 [facility] nRBC/100 WBC Bld Auto-Rto 0% Normal [id number] 0 - 1 [facility] RBC # Bld Auto 3.18M/uL Below low normal 658668873096 4 - 6 [facility] Neutrophils/leuk NFr Bld Auto 63.6% Normal 547491184009 39 - 72 [facility] Eosinophil/leuk NFr Bld Auto 2.4% Normal [id number] 0 - 5 [facility] Imm Granulocytes/leuk NFr Bld Auto 0.3% Normal 591343516780 0 - 1 [facility] WBC # Bld Auto 6.4n9441/uL Normal 916064895547 4 - 11 [facility] nRBC # Bld Auto 3q5698/uL Normal 915761660175 0 - 1 [facility] MCV RBC Auto 90.3fL Normal 986497088968 80 - 100 [facility] MCH RBC Qn Auto 28pg Normal [id number] 27 - 33 [facility] Platelet # Bld Auto 485v8382/uL Above high normal 3067604759 18 150 - 420 [facility] BUN SerPl-mCnc 24mg/dL Above high normal 169915424292 6 - 20 [facility] Creat SerPl-mCnc 0.53mg/dL Normal 542548373175 0.4 - 1.3 [facility] Anion Gap3 SerPl-sCnc 11 Normal 995447021820 7 - 17 [facility] GFR/BSA.pred SerPlBld UUE-WGQ-FkYEpi 60mL/min/1.73m2 Normal [id number] - [facility] HCO3 SerPl-sCnc 29mmol/L Normal 997912433088 20 - 30 [facility] Glucose SerPl-mCnc 146mg/dL Above high normal 610383350863 70 - 100 [facility] BUN/Creat SerPl 45.3 Above high normal 905279896894 8 - 23 [facility] Chloride SerPl-sCnc 107mmol/L Normal 906612596423 98 - 10 7 [facility] Calcium SerPl-mCnc 10mg/dL Normal 316013334324 8.8 - 10.2 [facility] Sodium SerPl-sCnc 147mmol/L Above high normal 719681223407 1 36 - 144 [facility] Potassium SerPl-sCnc 4.2mmol/L Normal 785304434415 3.3 - 5.3 [facility] BUN SerPl-mCnc 24mg/dL Above high normal 069643382809 6 - 20 [facility] Creat SerPl-mCnc 0.51mg/dL Normal 589989470212 0.4 - 1.3 [facility] Anion Gap3 SerPl-sCnc 7 Normal [id number] 7 - 17 [facility] GFR/BSA.pred SerPlBld BHW-BXA-ByPMpf 60mL/min/1.73m2 Normal 359835905042 - [facility] HCO3 SerPl-sCnc 31mmol/L Above high normal 885184212576 20 - 30 [facility] Glucose SerPl-mCnc 145mg/dL Above high normal 431360403524 70 - 100 [facility] BUN/Creat SerPl 47.1 Above high normal 445449288616 8 - 23 [facility] Chloride SerPl-sCnc 109mmol/L Above high normal 527041338682 98 - 107 [facility] Calcium SerPl-mCnc 9.4mg/dL Normal 665835447286 8.8 - 10.2 [facility] Sodium SerPl-sCnc 147mmol/L Above high normal 454391580924 1 36 - 144 [facility] Potassium SerPl-sCnc 3.8mmol/L Normal 604952573918 3.3 - 5.3 [facility] Magnesium SerPl-mCnc 2.1mg/dL Normal 844648863522 1.7 - 2.4 [facility] Phosphate SerPl-mCnc 4mg/dL Normal 066554826301 2.2 - 4.5 [facility] Hgb Bld-mCnc 7.8g/dL Below low normal 828642507334 13.2 - 17.1 [facility] Eosinophil # Bld Auto 0.14s0239/uL Normal [id number] 0 - 1 [facility] MCHC RBC Auto-mCnc 29.9g/dL Below low normal 197824193896 3 1 - 36 [facility] PMV Bld Auto 10.8fL Normal 549071476536 8 - 12 [facility] Basophils/leuk NFr Bld Auto 0.6% Normal 315346337379 0 - 1.4 [facility] Monocytes/leuk NFr Bld Auto 11.4% Normal 148056451076 4 - 12 [facility] RDW RBC Auto-Rto 14.4% Normal 051404640504 11 - 15 [facility] Monocytes # Bld Auto 0.9m0408/uL Normal 518044081445 0 - 1 [facility] Basophils # Bld Auto 0.97f7080/uL Normal 636268960964 0 - 1 [facility] Imm Granulocytes # Bld Auto 0.76h7877/uL Normal 476471931142 0 - 0.3 [facility] Neutrophils # Bld Auto 3.86e5780/uL Normal [id number] 2 - 7.6 [facility] Hct VFr Bld Auto 26.1% Below low normal 091221404693 38. 5 - 50 [facility] Lymphocytes/leuk NFr Bld Auto 28.2% Normal [id number] 17 - 50 [facility] Lymphocytes # Bld Auto 1.32b1460/uL Normal 125381463446 0.6 - 3.7 [facility] nRBC/100 WBC Bld Auto-Rto 0% Normal 385490317649 0 - 1 [facility] RBC # Bld Auto 2.89M/uL Below low normal 298025320871 4 - 6 [facility] Neutrophils/leuk NFr Bld Auto 57.3% Normal 390584302487 39 - 72 [facility] Eosinophil/leuk NFr Bld Auto 2.3% Normal 231928644483 0 - 5 [facility] Imm Granulocytes/leuk NFr Bld Auto 0.2% Normal 995794299997 0 - 1 [facility] WBC # Bld Auto 5.5h4458/uL Normal 012083365375 4 - 11 [facility] nRBC # Bld Auto 5a0023/uL Normal 998621281684 0 - 1 [facility] MCV RBC Auto 90.3fL Normal 538920792373 80 - 100 [facility] MCH RBC Qn Auto 27pg Normal 923174485136 27 - 33 [facility] Platelet # Bld Auto 404w4800/uL Above high normal 0880255984 06 150 - 420 [facility] Bacteria # Ur Auto Rare Normal 877709784225 - [facility] RBC #/area UrnS Auto 15/HPF Above high normal 636211668074 0 - 2 [facility] WBC #/area UrnS Auto 104/HPF Above high normal 026386632998 0 - 5 [facility] Glucose Ur Strip.auto-mCnc Negative Normal 064534875502 - [facility] Color Ur Auto Yellow Normal 016162209551 - [facility] Hgb Ur Ql Strip.auto Negative Normal 842087821344 - [facility] Ketones Ur Strip.auto-mCnc Negative Normal 043831364189 - [facility] Prot Ur Strip.auto-mCnc Trace Normal 291390032571 - [facility] Bilirub Ur Ql Strip.auto Negative Normal 733662963562 - [facility] WBC # Ur Strip 4+ Abnormal 499829412595 - [facility] Nitrite Ur Ql Strip.auto Negative Normal 196787549761 - [facility] Clarity Ur Refract.auto Cloudy Abnormal 673281427031 - [facility] pH Ur Strip.auto 7.5 Normal [id number] 5.5 - 7.5 [facility] Urobilinogen Ur Strip-mCnc 3mg/dL Above high normal 524455396736 - [facility] Sp Gr Ur Refract.auto 1.019 Normal 411892842180 1.005 - 1.03 [facility] B[facility] SPECIMEN EXPIRATION DATE AND TIME 01/11/2024 23:59 Normal [id number] [facility] ABO GROUPING O Normal 677525255514 [facility] ANTIBODY SCREEN NEG Normal [id number] [facility] RH TYPE POS Normal [id number] [facility] CRP SerPl HS-mCnc 68.7mg/L Above high normal 707567963268 - [facility] Prealb SerPl Neph-mCnc 16mg/dL Below low normal 923229481418 20 - 40 [facility] INR PPP 1 Normal 581710146063 0.86 - 1.12 [facility] Prothrombin time 11.1seconds Normal 174805889319 9.6 - 12.3 [facility] aPTT PPP 40.9seconds Above high normal 810555598990 23 - 31 .4 [facility] Magnesium SerPl-mCnc 1.9mg/dL Normal 827648018318 1.7 - 2.4 [facility] Phosphate SerPl-mCnc 3.4mg/dL Normal 497167836118 2.2 - 4.5 [facility] BUN SerPl-mCnc 22mg/dL Above high normal 528669586121 6 - 20 [facility] Creat SerPl-mCnc 0.53mg/dL Normal 496194148016 0.4 - 1.3 [facility] Anion Gap3 SerPl-sCnc 10 Normal 583601981187 7 - 17 [facility] GFR/BSA.pred SerPlBld DMN-UCS-GyMVwr 60mL/min/1.73m2 Normal [id number] - [facility] HCO3 SerPl-sCnc 29mmol/L Normal 120076411888 20 - 30 [facility] Glucose SerPl-mCnc 137mg/dL Above high normal 026504743106 70 - 100 [facility] BUN/Creat SerPl 41.5 Above high normal 865571294944 8 - 23 [facility] Chloride SerPl-sCnc 109mmol/L Above high normal 539172369203 98 - 107 [facility] Calcium SerPl-mCnc 10.2mg/dL Normal 054674409613 8.8 - 10.2 [facility] Sodium SerPl-sCnc 148mmol/L Above high normal 794869092795 1 36 - 144 [facility] Potassium SerPl-sCnc 3.7mmol/L Normal 909104518847 3.3 - 5.3 [facility] Hgb Bld-mCnc 9.1g/dL Below low normal 200899782449 13.2 - 17.1 [facility] Eosinophil # Bld Auto 0.18b8903/uL Normal 982105651135 0 - 1 [facility] MCHC RBC Auto-mCnc 31.1g/dL Normal 750296122940 31 - 36 [facility] PMV Bld Auto 10.9fL Normal 427938051735 8 - 12 [facility] Basophils/leuk NFr Bld Auto 0.5% Normal 007679277410 0 - 1.4 [facility] Monocytes/leuk NFr Bld Auto 9.6% Normal 097950918511 4 - 12 [facility] RDW RBC Auto-Rto 14.2% Normal 693555090331 11 - 15 [facility] Monocytes # Bld Auto 0.35a8753/uL Normal 649776514998 0 - 1 [facility] Basophils # Bld Auto 0.37r4929/uL Normal 962492784500 0 - 1 [facility] Imm Granulocytes # Bld Auto 0.95l2867/uL Normal 091463744374 0 - 0.3 [facility] Neutrophils # Bld Auto 5.68j1535/uL Normal 577264151123 2 - 7.6 [facility] Hct VFr Bld Auto 29.3% Below low normal 302531924043 38. 5 - 50 [facility] Lymphocytes/leuk NFr Bld Auto 17.1% Normal 516288072452 17 - 50 [facility] Lymphocytes # Bld Auto 1.28y2080/uL Normal 850413214360 0.6 - 3.7 [facility] nRBC/100 WBC Bld Auto-Rto 0% Normal 067867132863 0 - 1 [facility] RBC # Bld Auto 3.23M/uL Below low normal 809668322682 4 - 6 [facility] Neutrophils/leuk NFr Bld Auto 71.3% Normal 042401890185 39 - 72 [facility] Eosinophil/leuk NFr Bld Auto 1.2% Normal 147301661826 0 - 5 [facility] Imm Granulocytes/leuk NFr Bld Auto 0.3% Normal 715422164764 0 - 1 [facility] WBC # Bld Auto 7.4c3980/uL Normal 688907741622 4 - 11 [facility] nRBC # Bld Auto 5p4135/uL Normal 125104401084 0 - 1 [facility] MCV RBC Auto 90.7fL Normal 845475959422 80 - 100 [facility] MCH RBC Qn Auto 28.2pg Normal 626391652983 27 - 33 [facility] Platelet # Bld Auto 234t2797/uL Above high normal 4551711595 10 150 - 420 [facility] SPECIMEN EXPIRATION DATE AND TIME 01/09/2024 23:59 Normal [id number] [facility] ABO GROUPING O Normal 320550103753 [facility] ANTIBODY SCREEN NEG Normal 953727212654 [facility] RH TYPE POS Normal 073765852832 [facility] INR PPP 0.98 Normal 274850989556 0.86 - 1.12 [facility] Prothrombin time 10.9seconds Normal 388947548451 9.6 - 12.3 [facility] aPTT PPP 41.4seconds Above high normal 382193207824 23 - 31 .4 [facility] BUN SerPl-mCnc 22mg/dL Above high normal 933585207699 6 - 20 [facility] Creat SerPl-mCnc 0.56mg/dL Normal 618044303568 0.4 - 1.3 [facility] Anion Gap3 SerPl-sCnc 10 Normal [id number] 7 - 17 [facility] GFR/BSA.pred SerPlBld JHB-RPR-AgUKfg 60mL/min/1.73m2 Normal 633174164574 - [facility] HCO3 SerPl-sCnc 28mmol/L Normal 918134617670 20 - 30 [facility] Glucose SerPl-mCnc 141mg/dL Above high normal 092773473223 70 - 100 [facility] BUN/Creat SerPl 39.3 Above high normal 948218023114 8 - 23 [facility] Chloride SerPl-sCnc 106mmol/L Normal 492462663224 98 - 10 7 [facility] Calcium SerPl-mCnc 9.6mg/dL Normal 358189446000 8.8 - 10.2 [facility] Sodium SerPl-sCnc 144mmol/L Normal 251909724913 136 - 144 [facility] Potassium SerPl-sCnc 3.6mmol/L Normal [id number] 3.3 - 5.3 [facility] Phosphate SerPl-mCnc 3.3mg/dL Normal 2.2 - 4.5 [facility] Magnesium SerPl-mCnc 2.9mg/dL Above high normal 408914623862 1.7 - 2.4 [facility] Hgb Bld-mCnc 8.8g/dL Below low normal 076440773606 13.2 - 17.1 [facility] Eosinophil # Bld Auto 0.22w1341/uL Normal 715182854628 0 - 1 [facility] MCHC RBC Auto-mCnc 31.3g/dL Normal 31 - 36 [facility] PMV Bld Auto 10.8fL Normal 572624117156 8 - 12 [facility] Basophils/leuk NFr Bld Auto 0.7% Normal 0 - 1.4 [facility] Monocytes/leuk NFr Bld Auto 15.7% Above high normal 061222503975 4 - 12 [facility] RDW RBC Auto-Rto 14.5% Normal 11 - 15 [facility] Monocytes # Bld Auto 1.78m0320/uL Above high normal 253524674260 0 - 1 [facility] Basophils # Bld Auto 0.04b0487/uL Normal 531461635913 0 - 1 [facility] Imm Granulocytes # Bld Auto 0.73k7503/uL Normal 833084656959 0 - 0.3 [facility] Neutrophils # Bld Auto 4.50s3211/uL Normal 824686741672 2 - 7.6 [facility] Hct VFr Bld Auto 28.1% Below low normal 385574221094 38. 5 - 50 [facility] Lymphocytes/leuk NFr Bld Auto 27.5% Normal 572455053129 17 - 50 [facility] Lymphocytes # Bld Auto 2.28h4411/uL Normal 059987723575 0.6 - 3.7 [facility] nRBC/100 WBC Bld Auto-Rto 0% Normal 359323763627 0 - 1 [facility] RBC # Bld Auto 3.15M/uL Below low normal 063656649958 4 - 6 [facility] Neutrophils/leuk NFr Bld Auto 54.9% Normal 558933910248 39 - 72 [facility] Eosinophil/leuk NFr Bld Auto 0.8% Normal 865219184396 0 - 5 [facility] Granulocytes/leuk NFr Bld Auto 0.4% Normal 993103825249 0 - 1 [facility] WBC # Bld Auto 7.5n4782/uL Normal 320694864216 4 - 11 [facility] nRBC # Bld Auto 1l6551/uL Normal 190719921921 0 - 1 [facility] MCV RBC Auto 89.2fL Normal 707297046225 80 - 100 [facility] MCH RBC Qn Auto 27.9pg Normal 350461493420 27 - 33 [facility] Platelet # Bld Auto 457g8187/uL Above high normal 9750074247 22 150 - 420 [facility] BUN SerPl-mCnc 20mg/dL Normal 402363501909 6 - 20 [facility] Creat SerPl-mCnc 0.54mg/dL Normal 038953179923 0.4 - 1.3 [facility] Anion Gap3 SerPl-sCnc 9 Normal 998906413597 7 - 17 [facility] GFR/BSA.pred SerPlBld SCK-NGX-GkLZik 60mL/min/1.73m2 Normal 585007921092 - [facility] HCO3 SerPl-sCnc 28mmol/L Normal 296507036977 20 - 30 [facility] Glucose SerPl-mCnc 137mg/dL Above high normal 529030137002 70 - 100 [facility] BUN/Creat SerPl 37 Above high normal 484848087882 8 - 23 [facility] Chloride SerPl-sCnc 104mmol/L Normal 349586328293 98 - 10 7 [facility] Calcium SerPl-mCnc 9.5mg/dL Normal 684942251391 8.8 - 10.2 [facility] Sodium SerPl-sCnc 141mmol/L Normal 237349983563 136 - 144 [facility] Potassium SerPl-sCnc 4mmol/L Normal 199848695827 3.3 - 5.3 [facility] Phosphate SerPl-mCnc 3.7mg/dL Normal 621875974243 2.2 - 4.5 [facility] Magnesium SerPl-mCnc 1.9mg/dL Normal 976258810728 1.7 - 2.4 [facility] INR PPP 1.03 Normal 562586368562 0.86 - 1.12 [facility] Prothrombin time 11.4seconds Normal 179376182216 9.6 - 12.3 [facility] aPTT PPP 40.5seconds Above high normal 850289699595 23 - 31 .4 [facility] Hgb Bld-mCnc 8.5g/dL Below low normal 184716422238 13.2 - 17.1 [facility] Eosinophil # Bld Auto 0.25j8986/uL Normal 872377077913 0 - 1 [facility] MCHC RBC Auto-mCnc 31.6g/dL Normal 438294706243 31 - 36 [facility] PMV Bld Auto 10.7fL Normal 037604251661 8 - 12 [facility] Basophils/leuk NFr Bld Auto 0.3% Normal 238352697236 0 - 1.4 [facility] Monocytes/leuk NFr Bld Auto 13.9% Above high normal 870120055988 4 - 12 [facility] RDW RBC Auto-Rto 14.5% Normal 999395737440 11 - 15 [facility] Monocytes # Bld Auto 1.59h9865/uL Above high normal 513680462578 0 - 1 [facility] Basophils # Bld Auto 0.16e9554/uL Normal 869189494828 0 - 1 [facility] Imm Granulocytes # Bld Auto 0.44c9067/uL Normal 382440179359 0 - 0.3 [facility] Neutrophils # Bld Auto 5.19u2077/uL Normal 937881582819 2 - 7.6 [facility] Hct VFr Bld Auto 26.9% Below low normal 029183155585 38. 5 - 50 [facility] Lymphocytes/leuk NFr Bld Auto 19.4% Normal 369046147640 17 - 50 [facility] Lymphocytes # Bld Auto 1.02j2626/uL Normal 681574022121 0.6 - 3.7 [facility] nRBC/100 WBC Bld Auto-Rto 0% Normal 970414319402 0 - 1 [facility] RBC # Bld Auto 3.02M/uL Below low normal 177818095794 4 - 6 [facility] Neutrophils/leuk NFr Bld Auto 65.8% Normal 179812471424 39 - 72 [facility] Eosinophil/leuk NFr Bld Auto 0.3% Normal 889516674535 0 - 5 [facility] Imm Granulocytes/leuk NFr Bld Auto 0.3% Normal 568199811633 0 - 1 [facility] WBC # Bld Auto 7.5e7973/uL Normal 961178329064 4 - 11 [facility] nRBC # Bld Auto 6m1472/uL Normal 041537269985 0 - 1 [facility] MCV RBC Auto 89.1fL Normal 219199753867 80 - 100 [facility] MCH RBC Qn Auto 28.1pg Normal 412552757082 27 - 33 [facility] Platelet # Bld Auto 477t7248/uL Normal 607915894714 150 - 420 [facility] B[facility] SPECIMEN EXPIRATION DATE AND TIME 01/06/2024 23:59 Normal [id number] [facility] ABO GROUPING O Normal 811017758692 [facility] ANTIBODY SCREEN NEG Normal 903779717457 [facility] RH TYPE POS Normal 361314663548 [facility] BUN SerPl-mCnc 20mg/dL Normal 822191966510 6 - 20 [facility] Creat SerPl-mCnc 0.53mg/dL Normal 456298561598 0.4 - 1.3 [facility] Anion Gap3 SerPl-sCnc 11 Normal 878796137555 7 - 17 [facility] GFR/BSA.pred SerPlBld OUV-OFM-YqKVuv 60mL/min/1.73m2 Normal 192353573363 - [facility] HCO3 SerPl-sCnc 29mmol/L Normal 294430292886 20 - 30 [facility] Glucose SerPl-mCnc 118mg/dL Above high normal 968178916022 70 - 100 [facility] BUN/Creat SerPl 37.7 Above high normal 234826978959 8 - 23 [facility] Chloride SerPl-sCnc 107mmol/L Normal 390826120811 98 - 10 7 [facility] Calcium SerPl-mCnc 9.8mg/dL Normal 167579793942 8.8 - 10.2 [facility] Sodium SerPl-sCnc 147mmol/L Above high normal 925873203725 1 36 - 144 [facility] Potassium SerPl-sCnc 4.1mmol/L Normal [id number] 3.3 - 5.3 [facility] Phosphate SerPl-mCnc 3.6mg/dL Normal 813085313379 2.2 - 4.5 [facility] Magnesium SerPl-mCnc 2mg/dL Normal 364665582040 1.7 - 2.4 [facility] Hgb Bld-mCnc 9.4g/dL Below low normal 212830162080 13.2 - 17.1 [facility] Eosinophil # Bld Auto 0.15l8432/uL Normal 761011676078 0 - 1 [facility] MCHC RBC Auto-mCnc 30.2g/dL Below low normal 623253483752 3 1 - 36 [facility] PMV Bld Auto 10.5fL Normal 429480439671 8 - 12 [facility] Basophils/leuk NFr Bld Auto 0.3% Normal 372455614787 0 - 1.4 [facility] Monocytes/leuk NFr Bld Auto 13.3% Above high normal 591815699493 4 - 12 [facility] RDW RBC Auto-Rto 14.6% Normal 301988656473 11 - 15 [facility] Monocytes # Bld Auto 1.15k5827/uL Above high normal 803535085574 0 - 1 [facility] Basophils # Bld Auto 0.78d0993/uL Normal 762145686290 0 - 1 [facility] Imm Granulocytes # Bld Auto 0.17q8061/uL Normal 278578223797 0 - 0.3 [facility] Neutrophils # Bld Auto 5.54j6077/uL Normal 495276507786 2 - 7.6 [facility] Hct VFr Bld Auto 31.1% Below low normal 906457484533 38. 5 - 50 [facility] Lymphocytes/leuk NFr Bld Auto 21.7% Normal 474026223985 17 - 50 [facility] Lymphocytes # Bld Auto 1.49q9634/uL Normal 045251419537 0.6 - 3.7 [facility] nRBC/100 WBC Bld Auto-Rto 0% Normal 616275926915 0 - 1 [facility] RBC # Bld Auto 3.42M/uL Below low normal 905018772192 4 - 6 [facility] Neutrophils/leuk NFr Bld Auto 63.5% Normal 822917657052 39 - 72 [facility] Eosinophil/leuk NFr Bld Auto 0.9% Normal 368277678198 0 - 5 [facility] Imm Granulocytes/leuk NFr Bld Auto 0.3% Normal 524366054768 0 - 1 [facility] WBC # Bld Auto 8.5d0967/uL Normal 560561862711 4 - 11 [facility] nRBC # Bld Auto 3x0073/uL Normal 307650286810 0 - 1 [facility] MCV RBC Auto 90.9fL Normal 617134003310 80 - 100 [facility] MCH RBC Qn Auto 27.5pg Normal 610110795320 27 - 33 [facility] Platelet # Bld Auto 424j8877/uL Above high normal 8797114698 23 150 - 420 [facility] Valproate SerPl-mCnc 67.3ug/mL Normal 967166683863 50 - 100 [facility] Prealb SerPl Neph-mCnc 19.4mg/dL Below low normal 761455419862 20 - 40 [facility] Magnesium SerPl-mCnc 1.9mg/dL Normal 172980221588 1.7 - 2.4 [facility] BUN SerPl-mCnc 19mg/dL Normal 111147672425 6 - 20 [facility] Creat SerPl-mCnc 0.53mg/dL Normal 813800225044 0.4 - 1.3 [facility] Anion Gap3 SerPl-sCnc 13 Normal 798263169865 7 - 17 [facility] GFR/BSA.pred SerPlBld BOF-BKR-XpPYtg 60mL/min/1.73m2 Normal 546147122889 - [facility] HCO3 SerPl-sCnc 27mmol/L Normal 466795352175 20 - 30 [facility] Glucose SerPl-mCnc 146mg/dL Above high normal 599016344112 70 - 100 [facility] BUN/Creat SerPl 35.8 Above high normal 752756120842 8 - 23 [facility] Chloride SerPl-sCnc 105mmol/L Normal 580187733160 98 - 10 7 [facility] Calcium SerPl-mCnc 9.4mg/dL Normal 456781258049 8.8 - 10.2 [facility] Sodium SerPl-sCnc 145mmol/L Above high normal 910960735203 1 36 - 144 [facility] Potassium SerPl-sCnc 3.6mmol/L Normal 355539140327 3.3 - 5.3 [facility] Phosphate SerPl-mCnc 3.3mg/dL Normal 563858919331 2.2 - 4.5 [facility] CRP SerPl HS-mCnc 11.7mg/L Above high normal 951992228484 - [facility] Hgb Bld-mCnc 9.1g/dL Below low normal 531740631158 13.2 - 17.1 [facility] Eosinophil # Bld Auto 0.83d6955/uL Normal 898236690057 0 - 1 [facility] MCHC RBC Auto-mCnc 31.2g/dL Normal 962707537499 31 - 36 [facility] PMV Bld Auto 10.9fL Normal 881969243525 8 - 12 [facility] Basophils/leuk NFr Bld Auto 0.6% Normal 182097915926 0 - 1.4 [facility] Monocytes/leuk NFr Bld Auto 13.2% Above high normal 785719691763 4 - 12 [facility] RDW RBC Auto-Rto 14.4% Normal 042085956970 11 - 15 [facility] Monocytes # Bld Auto 0.48q3192/uL Normal 502711272734 0 - 1 [facility] Basophils # Bld Auto 0.21v1737/uL Normal 816699355867 0 - 1 [facility] Imm Granulocytes # Bld Auto 0.49k6078/uL Normal 523966352088 0 - 0.3 [facility] Neutrophils # Bld Auto 4.99d2727/uL Normal 808854120935 2 - 7.6 [facility] Hct VFr Bld Auto 29.2% Below low normal 716807688655 38. 5 - 50 [facility] Lymphocytes/leuk NFr Bld Auto 24.3% Normal 362784188519 17 - 50 [facility] Lymphocytes # Bld Auto 1.91h1169/uL Normal 803782595110 0.6 - 3.7 [facility] nRBC/100 WBC Bld Auto-Rto 0% Normal 171165320921 0 - 1 [facility] RBC # Bld Auto 3.27M/uL Below low normal 001303876720 4 - 6 [facility] Neutrophils/leuk NFr Bld Auto 60.9% Normal 224206926526 39 - 72 [facility] Eosinophil/leuk NFr Bld Auto 0.7% Normal 897513074667 0 - 5 [facility] Imm Granulocytes/leuk NFr Bld Auto 0.3% Normal 263308597603 0 - 1 [facility] WBC # Bld Auto 7.0j1371/uL Normal 062505335298 4 - 11 [facility] nRBC # Bld Auto 4o3088/uL Normal 207327245077 0 - 1 [facility] MCV RBC Auto 89.3fL Normal 852748194068 80 - 100 [facility] MCH RBC Qn Auto 27.8pg Normal 239174848074 27 - 33 [facility] Platelet # Bld Auto 211z3239/uL Above high normal 7753542414 35 150 - 420 [facility] VENT MODE (ARTERIAL BG DOMINGO QUESTION) CPAP Normal 653639937411 [facility] VENT SETTINGS (ARTERIAL BG DOMINGO QUESTION) Normal 816786431112 [facility] OXYGEN MODE (ARTERIAL BG DOMINGO QUESTION) Ventilator Normal 143659951250 [facility] SP02 (ARTERIAL BG DOMINGO QUESTION) 98% Normal [facility] pCO2 BldA 39mmHg Normal 32 - 48 [facility] HCO3 std BldA-sCnc 28.7mmol/L Above high normal 913081615575 21 - 28 [facility] FIO2 (ARTERIAL BG DOMINGO QUESTION) 40% Normal [facility] pH BldA 7.48units Above high normal 7.35 - 7.45 [facility] TEMPERATURE (ARTERIAL BG DOMINGO QUESTION) 98.9Fahrenheit Normal [facility] pO2 BldA 175mmHg Above high normal 83 - 108 [facility] SaO2 % BldA 100% Above high normal 94 - 98 [facility] END TIDAL CO2/TCOM (ARTERIAL BG [place]INGO QUESTION) 63mmol/L Normal [id number] [facility] ACTUAL RESPIRATORY RATE (ARTERIAL BG DOMINGO QUESTION) 21breaths/min Normal 189932408037 [facility] Base excess std BldA Calc-sCnc 5mmol/L Above high normal - [facility] SPECIMEN EXPIRATION DATE AND TIME 2024 23:59 Normal 345130686319 [facility] ABO GROUPING O Normal 633742416766 [facility] ANTIBODY SCREEN NEG Normal [id number] [facility] RH TYPE POS Normal 409048853893 [facility] Hgb Bld-mCnc 10.1g/dL Below low normal 350837629885 13.2 - 17.1 [facility] Eosinophil # Bld Auto 0.06j0033/uL Normal 436672786976 0 - 1 [facility] MCHC RBC Auto-mCnc 30.6g/dL Below low normal 923907097293 3 1 - 36 [facility] PMV Bld Auto 10.9fL Normal 641670757221 8 - 12 [facility] Basophils/leuk NFr Bld Auto 0.3% Normal 077437917770 0 - 1.4 [facility] Monocytes/leuk NFr Bld Auto 14% Above high normal 305607157073 4 - 12 [facility] RDW RBC Auto-Rto 14.4% Normal 424775887444 11 - 15 [facility] Monocytes # Bld Auto 1.8t6840/uL Above high normal 686508141574 0 - 1 [facility] Basophils # Bld Auto 0.50u4382/uL Normal 792674377268 0 - 1 [facility] Imm Granulocytes # Bld Auto 0.51k0561/uL Normal 294798214138 0 - 0.3 [facility] Neutrophils # Bld Auto 5.61l6763/uL Normal 153446156914 2 - 7.6 [facility] Hct VFr Bld Auto 33% Below low normal 714151818782 38. 5 - 50 [facility] Lymphocytes/leuk NFr Bld Auto 30.5% Normal 448303611871 17 - 50 [facility] Lymphocytes # Bld Auto 2.40s9866/uL Normal 708549613374 0.6 - 3.7 [facility] nRBC/100 WBC Bld Auto-Rto 0% Normal 267775112112 0 - 1 [facility] RBC # Bld Auto 3.63M/uL Below low normal 144032995940 4 - 6 [facility] Neutrophils/leuk NFr Bld Auto 53.9% Normal 302338455529 39 - 72 [facility] Eosinophil/leuk NFr Bld Auto 1% Normal [id number] 0 - 5 [facility] Imm Granulocytes/leuk NFr Bld Auto 0.3% Normal [id number] 0 - 1 [facility] WBC # Bld Auto 9.8x8785/uL Normal [id number] 4 - 11 [facility] nRBC # Bld Auto 4y9903/uL Normal 708039382979 0 - 1 [facility] MCV RBC Auto 90.9fL Normal 394798125519 80 - 100 [facility] MCH RBC Qn Auto 27.8pg Normal [id number] 27 - 33 [facility] Platelet # Bld Auto 258g5951/uL Above high normal 6426853991 25 150 - 420 [facility] BUN SerPl-mCnc 15mg/dL Normal [id number] 6 - 20 [facility] Creat SerPl-mCnc 0.54mg/dL Normal 985820264585 0.4 - 1.3 [facility] Anion Gap3 SerPl-sCnc 11 Normal 661492167230 7 - 17 [facility] GFR/BSA.pred SerPlBld KHF-CDJ-FuWCnv 60mL/min/1.73m2 Normal [id number] - [facility] HCO3 SerPl-sCnc 29mmol/L Normal [id number] 20 - 30 [facility] Glucose SerPl-mCnc 116mg/dL Above high normal 821993601161 70 - 100 [facility] BUN/Creat SerPl 27.8 Above high normal 419181399966 8 - 23 [facility] Chloride SerPl-sCnc 105mmol/L Normal 087355746166 98 - 10 7 [facility] Calcium SerPl-mCnc 9.5mg/dL Normal 451596742851 8.8 - 10.2 [facility] Sodium SerPl-sCnc 145mmol/L Above high normal 603587322253 1 36 - 144 [facility] Potassium SerPl-sCnc 4.5mmol/L Normal 825488767312 3.3 - 5.3 [facility] Magnesium SerPl-mCnc 2mg/dL Normal 110217450083 1.7 - 2.4 [facility] Phosphate SerPl-mCnc 5mg/dL Above high normal 114672825376 2.2 - 4.5 [facility] Phosphate SerPl-mCnc 4.1mg/dL Normal 021217936287 2.2 - 4.5 [facility] BUN SerPl-mCnc 15mg/dL Normal 411324989076 6 - 20 [facility] Creat SerPl-mCnc 0.55mg/dL Normal 705938297492 0.4 - 1.3 [facility] Anion Gap3 SerPl-sCnc 8 Normal [id number] 7 - 17 [facility] GFR/BSA.pred SerPlBld ZLY-KYS-MjTMsl 60mL/min/1.73m2 Normal 099341690120 - [facility] HCO3 SerPl-sCnc 27mmol/L Normal [id number] 20 - 30 [facility] Glucose SerPl-mCnc 154mg/dL Above high normal 303315129372 70 - 100 [facility] BUN/Creat SerPl 27.3 Above high normal 488156636263 8 - 23 [facility] Chloride SerPl-sCnc 107mmol/L Normal 488909327142 98 - 10 7 [facility] Calcium SerPl-mCnc 8.9mg/dL Normal 948502211000 8.8 - 10.2 [facility] Sodium SerPl-sCnc 142mmol/L Normal 357928887110 136 - 144 [facility] Potassium SerPl-sCnc 4.4mmol/L Normal 103408178335 3.3 - 5.3 [facility] Magnesium SerPl-mCnc 1.8mg/dL Normal 083800198051 1.7 - 2.4 [facility] Hgb Bld-mCnc 8.1g/dL Below low normal 027791611873 13.2 - 17.1 [facility] Eosinophil # Bld Auto 0.56a7744/uL Normal 606076086007 0 - 1 [facility] MCHC RBC Auto-mCnc 29.9g/dL Below low normal 501901794428 3 1 - 36 [facility] PMV Bld Auto 11.3fL Normal 058769022750 8 - 12 [facility] Basophils/leuk NFr Bld Auto 0.3% Normal 555747623684 0 - 1.4 [facility] Monocytes/leuk NFr Bld Auto 11.7% Normal 316113258945 4 - 12 [facility] RDW RBC Auto-Rto 14.8% Normal 164652062444 11 - 15 [facility] Monocytes # Bld Auto 0.10x9714/uL Normal 607569392169 0 - 1 [facility] Basophils # Bld Auto 0.06c7225/uL Normal 871630378784 0 - 1 [facility] Imm Granulocytes # Bld Auto 0.32j9288/uL Normal 469856082241 0 - 0.3 [facility] Neutrophils # Bld Auto 4.03c3670/uL Normal 681344263109 2 - 7.6 [facility] Hct VFr Bld Auto 27.1% Below low normal 369812605016 38. 5 - 50 [facility] Lymphocytes/leuk NFr Bld Auto 19.9% Normal [id number] 17 - 50 [facility] Lymphocytes # Bld Auto 1.09c7762/uL Normal 412436339466 0.6 - 3.7 [facility] nRBC/100 WBC Bld Auto-Rto 0% Normal 713617261626 0 - 1 [facility] RBC # Bld Auto 2.94M/uL Below low normal 993929489601 4 - 6 [facility] Neutrophils/leuk NFr Bld Auto 66.7% Normal 018535567537 39 - 72 [facility] Eosinophil/leuk NFr Bld Auto 1.2% Normal 026515246487 0 - 5 [facility] Imm Granulocytes/leuk NFr Bld Auto 0.2% Normal 424997694930 0 - 1 [facility] WBC # Bld Auto 6.8t3800/uL Normal 865240188889 4 - 11 [facility] nRBC # Bld Auto 6w6637/uL Normal 087651151317 0 - 1 [facility] MCV RBC Auto 92.2fL Normal 400684962622 80 - 100 [facility] MCH RBC Qn Auto 27.6pg Normal 442574042698 27 - 33 [facility] Platelet # Bld Auto 987z8632/uL Above high normal 8248480213 57 150 - 420 [facility] SPECIMEN EXPIRATION DATE AND TIME 12/30/2023 23:59 Normal [id number] [facility] ABO GROUPING O Normal 523983661209 [facility] ANTIBODY SCREEN NEG Normal 385451455500 [facility] RH TYPE POS Normal 404491127255 [facility] Valproate SerPl-mCnc 51.6ug/mL Normal 50 - 100 [facility] BUN SerPl-mCnc 14mg/dL Normal 859775534505 6 - 20 [facility] Creat SerPl-mCnc 0.54mg/dL Normal [id number] 0.4 - 1.3 [facility] Anion Gap3 SerPl-sCnc 13 Normal [id number] 7 - 17 [facility] GFR/BSA.pred SerPlBld KWM-NEP-YhEPih 60mL/min/1.73m2 Normal 800403281319 - [facility] HCO3 SerPl-sCnc 25mmol/L Normal 563637771191 20 - 30 [facility] Glucose SerPl-mCnc 174mg/dL Above high normal 701419693046 70 - 100 [facility] BUN/Creat SerPl 25.9 Above high normal 311820926581 8 - 23 [facility] Chloride SerPl-sCnc 105mmol/L Normal 521377388450 98 - 10 7 [facility] Calcium SerPl-mCnc 9.3mg/dL Normal 897927501044 8.8 - 10.2 [facility] Sodium SerPl-sCnc 143mmol/L Normal 878523190722 136 - 144 [facility] Potassium SerPl-sCnc 4mmol/L Normal [id number] 3.3 - 5.3 [facility] Magnesium SerPl-mCnc 1.8mg/dL Normal 333880205296 1.7 - 2.4 [facility] Phosphate SerPl-mCnc 4.1mg/dL Normal 462064967560 2.2 - 4.5 [facility] Hgb Bld-mCnc 8.8g/dL Below low normal 499827213996 13.2 - 17.1 [facility] Eosinophil # Bld Auto 0.29k9934/uL Normal 696178706601 0 - 1 [facility] MCHC RBC Auto-mCnc 32.4g/dL Normal 481382652645 31 - 36 [facility] PMV Bld Auto 11.2fL Normal 009004263098 8 - 12 [facility] Basophils/leuk NFr Bld Auto 0.3% Normal 760465330709 0 - 1.4 [facility] Monocytes/leuk NFr Bld Auto 13.3% Above high normal 609213195935 4 - 12 [facility] RDW RBC Auto-Rto 14.9% Normal 916913067191 11 - 15 [facility] Monocytes # Bld Auto 0.37w7936/uL Normal 231292737009 0 - 1 [facility] Basophils # Bld Auto 0.17f7024/uL Normal 806793103443 0 - 1 [facility] Imm Granulocytes # Bld Auto 0.24l5020/uL Normal 522486553895 0 - 0.3 [facility] Neutrophils # Bld Auto 3.87b4486/uL Normal 900595668108 2 - 7.6 [facility] Hct VFr Bld Auto 27.2% Below low normal 622028242165 38. 5 - 50 [facility] Lymphocytes/leuk NFr Bld Auto 25.9% Normal 367788743087 17 - 50 [facility] Lymphocytes # Bld Auto 1.85p3572/uL Normal 968760806309 0.6 - 3.7 [facility] nRBC/100 WBC Bld Auto-Rto 0% Normal 043271414814 0 - 1 [facility] RBC # Bld Auto 3.01M/uL Below low normal 306651929645 4 - 6 [facility] Neutrophils/leuk NFr Bld Auto 58% Normal 251032424771 39 - 72 [facility] Eosinophil/leuk NFr Bld Auto 2% Normal 483553490720 0 - 5 [facility] Imm Granulocytes/leuk NFr Bld Auto 0.5% Normal 906326337316 0 - 1 [facility] WBC # Bld Auto 6.6y3716/uL Normal 878299078011 4 - 11 [facility] nRBC # Bld Auto 7c6405/uL Normal 437842337536 0 - 1 [facility] MCV RBC Auto 90.4fL Normal [id number] 80 - 100 [facility] MCH RBC Qn Auto 29.2pg Normal 016571553883 27 - 33 [facility] Platelet # Bld Auto 497z4792/uL Normal 610853465605 150 - 420 [facility] SPECIMEN EXPIRATION DATE AND TIME 12/27/2023 23:59 Normal [id number] [facility] ABO GROUPING O Normal [facility] ANTIBODY SCREEN NEG Normal [facility] RH TYPE POS Normal [facility] BUN SerPl-mCnc 16mg/dL Normal 6 - 20 [facility] Creat SerPl-mCnc 0.53mg/dL Normal 0.4 - 1.3 [facility] Anion Gap3 SerPl-sCnc 11 Normal 7 - 17 [facility] GFR/BSA.pred SerPlBld GJX-SWP-HkAGmg 60mL/min/1.73m2 Normal - [facility] HCO3 SerPl-sCnc 27mmol/L Normal 20 - 30 [facility] Glucose SerPl-mCnc 123mg/dL Above high normal 70 - 100 [facility] BUN/Creat SerPl 30.2 Above high normal 8 - 23 [facility] Chloride SerPl-sCnc 103mmol/L Normal 98 - 10 7 [facility] Calcium SerPl-mCnc 8.9mg/dL Normal 8.8 - 10.2 [facility] Sodium SerPl-sCnc 141mmol/L Normal 136 - 144 [facility] Potassium SerPl-sCnc 4.1mmol/L Normal 3.3 - 5.3 [facility] CRP SerPl HS-mCnc 11.9mg/L Above high normal - [facility] Magnesium SerPl-mCnc 1.8mg/dL Normal [id number] 1.7 - 2.4 [facility] Phosphate SerPl-mCnc 4.2mg/dL Normal 2.2 - 4.5 [facility] Prealb SerPl Neph-mCnc 18.2mg/dL Below low normal 20 - 40 [facility] Hgb Bld-mCnc 8.6g/dL Below low normal 13.2 - 17.1 [facility] Eosinophil # Bld Auto 0.36i5070/uL Normal 632343616895 0 - 1 [facility] MCHC RBC Auto-mCnc 30.9g/dL Below low normal 272137886898 3 1 - 36 [facility] PMV Bld Auto 11.1fL Normal 545568774471 8 - 12 [facility] Basophils/leuk NFr Bld Auto 0.6% Normal 172942157579 0 - 1.4 [facility] Monocytes/leuk NFr Bld Auto 13.3% Above high normal 521627006990 4 - 12 [facility] RDW RBC Auto-Rto 15.3% Above high normal 560194813359 11 - 15 [facility] Monocytes # Bld Auto 0.81o9011/uL Normal 349652235789 0 - 1 [facility] Basophils # Bld Auto 0.49b2534/uL Normal 698746506508 0 - 1 [facility] Imm Granulocytes # Bld Auto 0.05t2032/uL Normal 213364239036 0 - 0.3 [facility] Neutrophils # Bld Auto 2.66c7815/uL Normal 038523663722 2 - 7.6 [facility] Hct VFr Bld Auto 27.8% Below low normal 470759232541 38. 5 - 50 [facility] Lymphocytes/leuk NFr Bld Auto 29.1% Normal 321115286565 17 - 50 [facility] Lymphocytes # Bld Auto 1.37b3572/uL Normal 688616157486 0.6 - 3.7 [facility] nRBC/100 WBC Bld Auto-Rto 0% Normal 754923111542 0 - 1 [facility] RBC # Bld Auto 3.04M/uL Below low normal 736047144701 4 - 6 [facility] Neutrophils/leuk NFr Bld Auto 53.7% Normal 368827163829 39 - 72 [facility] Eosinophil/leuk NFr Bld Auto 2.7% Normal 656788452849 0 - 5 [facility] Imm Granulocytes/leuk NFr Bld Auto 0.6% Normal 517649663024 0 - 1 [facility] WBC # Bld Auto 5.3e1448/uL Normal 839964712603 4 - 11 [facility] nRBC # Bld Auto 9x9830/uL Normal 036186351555 0 - 1 [facility] MCV RBC Auto 91.4fL Normal 485023973824 80 - 100 [facility] MCH RBC Qn Auto 28.3pg Normal 070092901874 27 - 33 [facility] Platelet # Bld Auto 074n0795/uL Normal [id number] 150 - 420 [facility] Magnesium SerPl-mCnc 1.9mg/dL Normal 221682315559 1.7 - 2.4 [facility] BUN SerPl-mCnc 19mg/dL Normal 421280323709 6 - 20 [facility] Creat SerPl-mCnc 0.56mg/dL Normal 489631821260 0.4 - 1.3 [facility] Anion Gap3 SerPl-sCnc 10 Normal 658349486757 7 - 17 [facility] GFR/BSA.pred SerPlBld BUP-ORE-OrVQxw 60mL/min/1.73m2 Normal 743495666053 - [facility] HCO3 SerPl-sCnc 27mmol/L Normal 195303838817 20 - 30 [facility] Glucose SerPl-mCnc 104mg/dL Above high normal 218057302578 70 - 100 [facility] BUN/Creat SerPl 33.9 Above high normal 382859404295 8 - 23 [facility] Chloride SerPl-sCnc 101mmol/L Normal 604538996067 98 - 10 7 [facility] Calcium SerPl-mCnc 9.3mg/dL Normal 339925470294 8.8 - 10.2 [facility] Sodium SerPl-sCnc 138mmol/L Normal 987680338819 136 - 144 [facility] Potassium SerPl-sCnc 3.6mmol/L Normal 679573243029 3.3 - 5.3 [facility] Phosphate SerPl-mCnc 3.1mg/dL Normal 753533176168 2.2 - 4.5 [facility] Hgb Bld-mCnc 8.4g/dL Below low normal 217589613479 13.2 - 17.1 [facility] Eosinophil # Bld Auto 0.51d5646/uL Normal 341805961914 0 - 1 [facility] MCHC RBC Auto-mCnc 31g/dL Normal 978085741342 31 - 36 [facility] PMV Bld Auto 11.3fL Normal 489440556646 8 - 12 [facility] Basophils/leuk NFr Bld Auto 0.3% Normal 609883860649 0 - 1.4 [facility] Monocytes/leuk NFr Bld Auto 9.6% Normal 608712395874 4 - 12 [facility] RDW RBC Auto-Rto 15.6% Above high normal 142762733451 11 - 15 [facility] Monocytes # Bld Auto 0.71f0915/uL Normal 860741824970 0 - 1 [facility] Basophils # Bld Auto 0.13g7524/uL Normal 752816297136 0 - 1 [facility] Imm Granulocytes # Bld Auto 0.76l0354/uL Normal 776030522257 0 - 0.3 [facility] Neutrophils # Bld Auto 3.46i8840/uL Normal 474559385950 2 - 7.6 [facility] Hct VFr Bld Auto 27.1% Below low normal 706871420924 38. 5 - 50 [facility] Lymphocytes/leuk NFr Bld Auto 28.8% Normal [id number] 17 - 50 [facility] Lymphocytes # Bld Auto 1.01g9806/uL Normal 088694625078 0.6 - 3.7 [facility] nRBC/100 WBC Bld Auto-Rto 0% Normal 735773083895 0 - 1 [facility] RBC # Bld Auto 3.03M/uL Below low normal 052754760007 4 - 6 [facility] Neutrophils/leuk NFr Bld Auto 58.8% Normal 723738158680 39 - 72 [facility] Eosinophil/leuk NFr Bld Auto 2% Normal 291790610419 0 - 5 [facility] Imm Granulocytes/leuk NFr Bld Auto 0.5% Normal [id number] 0 - 1 [facility] WBC # Bld Auto 6.1a5107/uL Normal 4 - 11 [facility] nRBC # Bld Auto 8b8170/uL Normal 312459561586 0 - 1 [facility] MCV RBC Auto 89.4fL Normal 666042773550 80 - 100 [facility] MCH RBC Qn Auto 27.7pg Normal 581988424813 27 - 33 [facility] Platelet # Bld Auto 738w2656/uL Above high normal 1857377204 16 150 - 420 [facility] SPECIMEN EXPIRATION DATE AND TIME 12/23/2023 23:59 Normal [id number] [facility] ABO GROUPING O Normal 546979454720 [facility] ANTIBODY SCREEN NEG Normal 485810983482 [facility] RH TYPE POS Normal 923626465755 [facility] Hgb Bld-mCnc 8.3g/dL Below low normal 728681343272 13.2 - 17.1 [facility] Eosinophil # Bld Auto 0.61h1070/uL Normal 734559179815 0 - 1 [facility] MCHC RBC Auto-mCnc 31.7g/dL Normal 080074221616 31 - 36 [facility] PMV Bld Auto 11.3fL Normal 621455279829 8 - 12 [facility] Basophils/leuk NFr Bld Auto 0.2% Normal [id number] 0 - 1.4 [facility] Monocytes/leuk NFr Bld Auto 8.2% Normal 448764142711 4 - 12 [facility] RDW RBC Auto-Rto 15.1% Above high normal 907162606539 11 - 15 [facility] Monocytes # Bld Auto 0.01x5411/uL Normal 329111571934 0 - 1 [facility] Basophils # Bld Auto 0.27e5999/uL Normal 857223872438 0 - 1 [facility] Imm Granulocytes # Bld Auto 0.69n1541/uL Normal 961934869515 0 - 0.3 [facility] Neutrophils # Bld Auto 3.17n5842/uL Normal 179535488917 2 - 7.6 [facility] Hct VFr Bld Auto 26.2% Below low normal 311081784790 38. 5 - 50 [facility] Lymphocytes/leuk NFr Bld Auto 31.6% Normal [id number] 17 - 50 [facility] Lymphocytes # Bld Auto 1.02o1305/uL Normal 183283132856 0.6 - 3.7 [facility] nRBC/100 WBC Bld Auto-Rto 0% Normal 675418349593 0 - 1 [facility] RBC # Bld Auto 2.9M/uL Below low normal 611372988813 4 - 6 [facility] Neutrophils/leuk NFr Bld Auto 57.9% Normal 242127847103 39 - 72 [facility] Eosinophil/leuk NFr Bld Auto 1.6% Normal 163712893658 0 - 5 [facility] Granulocytes/leuk NFr Bld Auto 0.5% Normal 786471226716 0 - 1 [facility] WBC # Bld Auto 5.6g3270/uL Normal 774126523751 4 - 11 [facility] nRBC # Bld Auto 7d3813/uL Normal 103157349711 0 - 1 [facility] MCV RBC Auto 90.3fL Normal 293799234681 80 - 100 [facility] MCH RBC Qn Auto 28.6pg Normal 117789554928 27 - 33 [facility] Platelet # Bld Auto 761v7211/uL Normal 673911560681 150 - 420 [facility] BUN SerPl-mCnc 20mg/dL Normal 230685923524 6 - 20 [facility] Creat SerPl-mCnc 0.56mg/dL Normal 909986735198 0.4 - 1.3 [facility] Anion Gap3 SerPl-sCnc 11 Normal 076157598675 7 - 17 [facility] GFR/BSA.pred SerPlBld KUR-QJL-VfWEul 60mL/min/1.73m2 Normal 027908167325 - [facility] HCO3 SerPl-sCnc 27mmol/L Normal 566760847333 20 - 30 [facility] Glucose SerPl-mCnc 149mg/dL Above high normal 797159324265 70 - 100 [facility] BUN/Creat SerPl 35.7 Above high normal 546136879318 8 - 23 [facility] Chloride SerPl-sCnc 100mmol/L Normal [id number] 98 - 10 7 [facility] Calcium SerPl-mCnc 9.3mg/dL Normal 450155821060 8.8 - 10.2 [facility] Sodium SerPl-sCnc 138mmol/L Normal 732628393529 136 - 144 [facility] Potassium SerPl-sCnc 3.5mmol/L Normal 980482912133 3.3 - 5.3 [facility] Magnesium SerPl-mCnc 2mg/dL Normal 000956522910 1.7 - 2.4 [facility] Phosphate SerPl-mCnc 3.5mg/dL Normal 818529564772 2.2 - 4.5 [facility] BUN SerPl-mCnc 19mg/dL Normal 289038464711 6 - 20 [facility] Creat SerPl-mCnc 0.54mg/dL Normal [id number] 0.4 - 1.3 [facility] Anion Gap3 SerPl-sCnc 8 Normal 794787986029 7 - 17 [facility] GFR/BSA.pred SerPlBld VHQ-MBH-EaQRmz 60mL/min/1.73m2 Normal 021766518356 - [facility] HCO3 SerPl-sCnc 30mmol/L Normal 382881471231 20 - 30 [facility] Glucose SerPl-mCnc 128mg/dL Above high normal 173698282104 70 - 100 [facility] BUN/Creat SerPl 35.2 Above high normal 037369253564 8 - 23 [facility] Chloride SerPl-sCnc 100mmol/L Normal 150998242011 98 - 10 7 [facility] Calcium SerPl-mCnc 9.2mg/dL Normal 663240814936 8.8 - 10.2 [facility] Sodium SerPl-sCnc 138mmol/L Normal 760711776352 136 - 144 [facility] Potassium SerPl-sCnc 3.8mmol/L Normal 642351564636 3.3 - 5.3 [facility] Phosphate SerPl-mCnc 3.5mg/dL Normal 121801350962 2.2 - 4.5 [facility] Magnesium SerPl-mCnc 1.9mg/dL Normal 913173035035 1.7 - 2.4 [facility] Hgb Bld-mCnc 8.7g/dL Below low normal 508405505819 13.2 - 17.1 [facility] Eosinophil # Bld Auto 0.39h7828/uL Normal 793366399993 0 - 1 [facility] MCHC RBC Auto-mCnc 32.7g/dL Normal 956908225172 31 - 36 [facility] PMV Bld Auto 10.9fL Normal 504975236957 8 - 12 [facility] Basophils/leuk NFr Bld Auto 0.4% Normal 518024577445 0 - 1.4 [facility] Monocytes/leuk NFr Bld Auto 8.1% Normal 570933553838 4 - 12 [facility] RDW RBC Auto-Rto 15.1% Above high normal 690090159192 11 - 15 [facility] Monocytes # Bld Auto 0.14c9040/uL Normal 242735096133 0 - 1 [facility] Basophils # Bld Auto 0.73j6076/uL Normal 260688416781 0 - 1 [facility] Imm Granulocytes # Bld Auto 0.13i5758/uL Normal 507701271437 0 - 0.3 [facility] Neutrophils # Bld Auto 2.06f3199/uL Normal 345696695227 2 - 7.6 [facility] Hct VFr Bld Auto 26.6% Below low normal 005132757852 38. 5 - 50 [facility] Lymphocytes/leuk NFr Bld Auto 34.2% Normal 123678310925 17 - 50 [facility] Lymphocytes # Bld Auto 1.38m7312/uL Normal 982772926588 0.6 - 3.7 [facility] nRBC/100 WBC Bld Auto-Rto 0% Normal 403753639388 0 - 1 [facility] RBC # Bld Auto 2.91M/uL Below low normal 773172736344 4 - 6 [facility] Neutrophils/leuk NFr Bld Auto 53.5% Normal 077880489098 39 - 72 [facility] Eosinophil/leuk NFr Bld Auto 3.3% Normal 824460432146 0 - 5 [facility] Imm Granulocytes/leuk NFr Bld Auto 0.5% Normal 857884208144 0 - 1 [facility] WBC # Bld Auto 5.6e4626/uL Normal 855136909169 4 - 11 [facility] nRBC # Bld Auto 9o4865/uL Normal 262535371899 0 - 1 [facility] MCV RBC Auto 91.4fL Normal 229262831766 80 - 100 [facility] MCH RBC Qn Auto 29.9pg Normal 216964062810 27 - 33 [facility] Platelet # Bld Auto 043g9118/uL Normal [id number] 150 - 420 [facility] BUN SerPl-mCnc 21mg/dL Above high normal 717864616966 6 - 20 [facility] Creat SerPl-mCnc 0.54mg/dL Normal 808831369925 0.4 - 1.3 [facility] Anion Gap3 SerPl-sCnc 11 Normal 716362613743 7 - 17 [facility] GFR/BSA.pred SerPlBld VNB-EKG-PzEGko 60mL/min/1.73m2 Normal 355616917294 - [facility] HCO3 SerPl-sCnc 29mmol/L Normal 095098488457 20 - 30 [facility] Glucose SerPl-mCnc 118mg/dL Above high normal 425295665893 70 - 100 [facility] BUN/Creat SerPl 38.9 Above high normal 750715708148 8 - 23 [facility] Chloride SerPl-sCnc 100mmol/L Normal 410488170840 98 - 10 7 [facility] Calcium SerPl-mCnc 9.3mg/dL Normal 803700128760 8.8 - 10.2 [facility] Sodium SerPl-sCnc 140mmol/L Normal 191354824995 136 - 144 [facility] Potassium SerPl-sCnc 3.5mmol/L Normal 015400973364 3.3 - 5.3 [facility] Phosphate SerPl-mCnc 4.8mg/dL Above high normal 280909637285 2.2 - 4.5 [facility] Magnesium SerPl-mCnc 2mg/dL Normal 402397168199 1.7 - 2.4 [facility] Hgb Bld-mCnc 8.5g/dL Below low normal 017033719139 13.2 - 17.1 [facility] Eosinophil # Bld Auto 0.60p9398/uL Normal 049591690360 0 - 1 [facility] MCHC RBC Auto-mCnc 30.7g/dL Below low normal 209379555663 3 1 - 36 [facility] PMV Bld Auto 11.1fL Normal 607660855220 8 - 12 [facility] Basophils/leuk NFr Bld Auto 0.2% Normal 140051938066 0 - 1.4 [facility] Monocytes/leuk NFr Bld Auto 8.8% Normal 270813305498 4 - 12 [facility] RDW RBC Auto-Rto 15.3% Above high normal 989236304279 11 - 15 [facility] Monocytes # Bld Auto 0.2q2794/uL Normal 235666778251 0 - 1 [facility] Basophils # Bld Auto 0.78o3104/uL Normal 896532074703 0 - 1 [facility] Imm Granulocytes # Bld Auto 0.91a9972/uL Normal 734542787342 0 - 0.3 [facility] Neutrophils # Bld Auto 2.05i1070/uL Normal 913616795250 2 - 7.6 [facility] Hct VFr Bld Auto 27.7% Below low normal 331446001788 38. 5 - 50 [facility] Lymphocytes/leuk NFr Bld Auto 37% Normal 581548799097 17 - 50 [facility] Lymphocytes # Bld Auto 1.43k4011/uL Normal 374237169400 0.6 - 3.7 [facility] nRBC/100 WBC Bld Auto-Rto 0% Normal 823704831950 0 - 1 [facility] RBC # Bld Auto 3.01M/uL Below low normal 089199544844 4 - 6 [facility] Neutrophils/leuk NFr Bld Auto 50% Normal 122738784410 39 - 72 [facility] Eosinophil/leuk NFr Bld Auto 3.3% Normal 035650790096 0 - 5 [facility] Imm Granulocytes/leuk NFr Bld Auto 0.7% Normal 402515881872 0 - 1 [facility] WBC # Bld Auto 4.8d6937/uL Normal 020759250284 4 - 11 [facility] nRBC # Bld Auto 9f0104/uL Normal 006351107082 0 - 1 [facility] MCV RBC Auto 92fL Normal 951501726836 80 - 100 [facility] MCH RBC Qn Auto 28.2pg Normal 037390567405 27 - 33 [facility] Platelet # Bld Auto 553g5595/uL Above high normal 8519864943 50 150 - 420 [facility] Phosphate SerPl-mCnc 3.3mg/dL Normal 436230785491 2.2 - 4.5 [facility] Magnesium SerPl-mCnc 2mg/dL Normal 182488497469 1.7 - 2.4 [facility] Hgb Bld-mCnc 8.7g/dL Below low normal 308815785231 13.2 - 17.1 [facility] Eosinophil # Bld Auto 0.3p6771/uL Normal 773436952335 0 - 1 [facility] MCHC RBC Auto-mCnc 31.1g/dL Normal 912522117752 31 - 36 [facility] PMV Bld Auto 10.9fL Normal 671632449681 8 - 12 [facility] Basophils/leuk NFr Bld Auto 0.3% Normal 411243418793 0 - 1.4 [facility] Monocytes/leuk NFr Bld Auto 7.7% Normal 313238807753 4 - 12 [facility] RDW RBC Auto-Rto 15.3% Above high normal 821707532358 11 - 15 [facility] Monocytes # Bld Auto 0.94a3928/uL Normal 323613964314 0 - 1 [facility] Basophils # Bld Auto 0.73l2392/uL Normal 348526519860 0 - 1 [facility] Imm Granulocytes # Bld Auto 0.97v2543/uL Normal 161833871706 0 - 0.3 [facility] Neutrophils # Bld Auto 3.81w2245/uL Normal 937697199481 2 - 7.6 [facility] Hct VFr Bld Auto 28% Below low normal 809002714946 38. 5 - 50 [facility] Lymphocytes/leuk NFr Bld Auto 33.2% Normal 905842303760 17 - 50 [facility] Lymphocytes # Bld Auto 2.45c1977/uL Normal 168997335677 0.6 - 3.7 [facility] nRBC/100 WBC Bld Auto-Rto 0% Normal [id number] 0 - 1 [facility] RBC # Bld Auto 3.1M/uL Below low normal 851641018178 4 - 6 [facility] Neutrophils/leuk NFr Bld Auto 55.1% Normal 026204328535 39 - 72 [facility] Eosinophil/leuk NFr Bld Auto 3.1% Normal 798973399274 0 - 5 [facility] Imm Granulocytes/leuk NFr Bld Auto 0.6% Normal 154143580495 0 - 1 [facility] WBC # Bld Auto 6.1u4176/uL Normal 972037346195 4 - 11 [facility] nRBC # Bld Auto 6c8325/uL Normal 064981252344 0 - 1 [facility] MCV RBC Auto 90.3fL Normal 290916311809 80 - 100 [facility] MCH RBC Qn Auto 28.1pg Normal 924815212224 27 - 33 [facility] Platelet # Bld Auto 353f1176/uL Above high normal 0531696970 16 150 - 420 [facility] SPECIMEN EXPIRATION DATE AND TIME 12/20/2023 23:59 Normal [id number] [facility] ABO GROUPING O Normal 455829635649 [facility] ANTIBODY SCREEN NEG Normal 098624036473 [facility] RH TYPE POS Normal 467125935300 [facility] Magnesium SerPl-mCnc 2mg/dL Normal 010164173851 1.7 - 2.4 [facility] BUN SerPl-mCnc 20mg/dL Normal 056414901988 6 - 20 [facility] Creat SerPl-mCnc 0.53mg/dL Normal 281597754088 0.4 - 1.3 [facility] Anion Gap3 SerPl-sCnc 10 Normal 101886259597 7 - 17 [facility] GFR/BSA.pred SerPlBld NSF-NBP-NlZEgd 60mL/min/1.73m2 Normal - [facility] HCO3 SerPl-sCnc 27mmol/L Normal 417155711696 20 - 30 [facility] Glucose SerPl-mCnc 138mg/dL Above high normal 340155378399 70 - 100 [facility] BUN/Creat SerPl 37.7 Above high normal 201123739261 8 - 23 [facility] Chloride SerPl-sCnc 100mmol/L Normal 764813934865 98 - 10 7 [facility] Calcium SerPl-mCnc 9.2mg/dL Normal 502250314279 8.8 - 10.2 [facility] Sodium SerPl-sCnc 137mmol/L Normal 276526148410 136 - 144 [facility] Potassium SerPl-sCnc 4.1mmol/L Normal 583395904161 3.3 - 5.3 [facility] Phosphate SerPl-mCnc 5.1mg/dL Above high normal 746933179816 2.2 - 4.5 [facility] Hgb Bld-mCnc 7.8g/dL Below low normal 066771916661 13.2 - 17.1 [facility] Eosinophil # Bld Auto 0.60q5565/uL Normal 311346945761 0 - 1 [facility] MCHC RBC Auto-mCnc 30.6g/dL Below low normal 963374031971 3 1 - 36 [facility] PMV Bld Auto 11fL Normal 063372781659 8 - 12 [facility] Basophils/leuk NFr Bld Auto 0.3% Normal 533910444577 0 - 1.4 [facility] Monocytes/leuk NFr Bld Auto 8.7% Normal 329237919665 4 - 12 [facility] RDW RBC Auto-Rto 15.3% Above high normal 522464408284 11 - 15 [facility] Monocytes # Bld Auto 0.62y7686/uL Normal 794834788394 0 - 1 [facility] Basophils # Bld Auto 0.24s8493/uL Normal 002206011599 0 - 1 [facility] Imm Granulocytes # Bld Auto 0.36o3302/uL Normal 468926188134 0 - 0.3 [facility] Neutrophils # Bld Auto 3.36h5805/uL Normal 000278954029 2 - 7.6 [facility] Hct VFr Bld Auto 25.5% Below low normal 894429637801 38. 5 - 50 [facility] Lymphocytes/leuk NFr Bld Auto 27.5% Normal [id number] 17 - 50 [facility] Lymphocytes # Bld Auto 1.27t1807/uL Normal 781925741801 0.6 - 3.7 [facility] nRBC/100 WBC Bld Auto-Rto 0% Normal 267573863038 0 - 1 [facility] RBC # Bld Auto 2.78M/uL Below low normal 042967431342 4 - 6 [facility] Neutrophils/leuk NFr Bld Auto 57.9% Normal [id number] 39 - 72 [facility] Eosinophil/leuk NFr Bld Auto 5.1% Above high normal 217044701843 0 - 5 [facility] Imm Granulocytes/leuk NFr Bld Auto 0.5% Normal [id number] 0 - 1 [facility] WBC # Bld Auto 6.1q8411/uL Normal [id number] 4 - 11 [facility] nRBC # Bld Auto 6n3043/uL Normal [id number] 0 - 1 [facility] MCV RBC Auto 91.7fL Normal 225316519370 80 - 100 [facility] MCH RBC Qn Auto 28.1pg Normal [id number] 27 - 33 [facility] Platelet # Bld Auto 640g6017/uL Normal [id number] 150 - 420 [facility] Valproate SerPl-mCnc 37.9ug/mL Below low normal 932937902902 50 - 100 [facility] BUN SerPl-mCnc 19mg/dL Normal 452825120174 6 - 20 [facility] Creat SerPl-mCnc 0.59mg/dL Normal [id number] 0.4 - 1.3 [facility] Anion Gap3 SerPl-sCnc 11 Normal [id number] 7 - 17 [facility] GFR/BSA.pred SerPlBld JSN-RKD-NqFEix 60mL/min/1.73m2 Normal [id number] - [facility] HCO3 SerPl-sCnc 24mmol/L Normal [id number] 20 - 30 [facility] Glucose SerPl-mCnc 130mg/dL Above high normal 053364945206 70 - 100 [facility] BUN/Creat SerPl 32.2 Above high normal 473459274919 8 - 23 [facility] Chloride SerPl-sCnc 103mmol/L Normal 618412590816 98 - 10 7 [facility] Calcium SerPl-mCnc 9.4mg/dL Normal 222339946040 8.8 - 10.2 [facility] Sodium SerPl-sCnc 138mmol/L Normal [id number] 136 - 144 [facility] Potassium SerPl-sCnc 3.4mmol/L Normal [id number] 3.3 - 5.3 [facility] Prealb SerPl Neph-mCnc 19.6mg/dL Below low normal [id number] 20 - 40 [facility] CRP SerPl HS-mCnc 3.2mg/L Above high normal 404488284405 - [facility] BUN SerPl-mCnc 15mg/dL Normal 168010803044 6 - 20 [facility] Creat SerPl-mCnc 0.45mg/dL Normal [id number] 0.4 - 1.3 [facility] Anion Gap3 SerPl-sCnc 10 Normal 261662169215 7 - 17 [facility] GFR/BSA.pred SerPlBld NJG-VGL-LfPZhc 60mL/min/1.73m2 Normal [id number] - [facility] HCO3 SerPl-sCnc 20mmol/L Normal [id number] 20 - 30 [facility] Glucose SerPl-mCnc 109mg/dL Above high normal 983619738158 70 - 100 [facility] BUN/Creat SerPl 33.3 Above high normal 633569178304 8 - 23 [facility] Chloride SerPl-sCnc 114mmol/L Above high normal 607055565918 98 - 107 [facility] Calcium SerPl-mCnc 7.3mg/dL Below low normal 68621069850 4 8.8 - 10.2 [facility] Sodium SerPl-sCnc 144mmol/L Normal [id number] 136 - 144 [facility] Potassium SerPl-sCnc 2.8mmol/L Below low normal 228723464396 3.3 - 5.3 [facility] Magnesium SerPl-mCnc 1.5mg/dL Below low normal [id number] 1.7 - 2.4 [facility] Phosphate SerPl-mCnc 2.5mg/dL Normal 768232333829 2.2 - 4.5 [facility] Hgb Bld-mCnc 8.2g/dL Below low normal 913553832623 13.2 - 17.1 [facility] Eosinophil # Bld Auto 0.39z5867/uL Normal 746402060103 0 - 1 [facility] MCHC RBC Auto-mCnc 32.9g/dL Normal [id number] 31 - 36 [facility] PMV Bld Auto 10.9fL Normal 757563693803 8 - 12 [facility] Basophils/leuk NFr Bld Auto 0.3% Normal 152233365701 0 - 1.4 [facility] Monocytes/leuk NFr Bld Auto 8.9% Normal 565619227064 4 - 12 [facility] RDW RBC Auto-Rto 15.4% Above high normal [id number] 11 - 15 [facility] Monocytes # Bld Auto 0.38y8275/uL Normal 886122967667 0 - 1 [facility] Basophils # Bld Auto 0.99e4220/uL Normal 958262265469 0 - 1 [facility] Imm Granulocytes # Bld Auto 0.89z0752/uL Normal 514347305984 0 - 0.3 [facility] Neutrophils # Bld Auto 3.99a0892/uL Normal 746919076624 2 - 7.6 [facility] Hct VFr Bld Auto 24.9% Below low normal 065576917693 38. 5 - 50 [facility] Lymphocytes/leuk NFr Bld Auto 30.3% Normal [id number] 17 - 50 [facility] Lymphocytes # Bld Auto 2.54q9946/uL Normal [id number] 0.6 - 3.7 [facility] nRBC/100 WBC Bld Auto-Rto 0% Normal 206084804719 0 - 1 [facility] RBC # Bld Auto 2.79M/uL Below low normal 491801920560 4 - 6 [facility] Neutrophils/leuk NFr Bld Auto 58% Normal 592670330256 39 - 72 [facility] Eosinophil/leuk NFr Bld Auto 2.2% Normal 780227959542 0 - 5 [facility] Imm Granulocytes/leuk NFr Bld Auto 0.3% Normal 665416743815 0 - 1 [facility] WBC # Bld Auto 6.1m2315/uL Normal 322231859634 4 - 11 [facility] nRBC # Bld Auto 9r3876/uL Normal [id number] 0 - 1 [facility] MCV RBC Auto 89.2fL Normal 549321773167 80 - 100 [facility] MCH RBC Qn Auto 29.4pg Normal 614394918744 27 - 33 [facility] Platelet # Bld Auto 069m3190/uL Above high normal 5825123957 53 150 - 420 [facility] Procalcitonin SerPl-mCnc 0.08ng/mL Normal [id number] - [facility] Glucose Ur Strip.auto-mCnc Negative Normal 710091246083 - [facility] Color Ur Auto Yellow Normal [id number] - [facility] Hgb Ur Ql Strip.auto Negative Normal [id number] - [facility] Ketones Ur Strip.auto-mCnc 1+ Abnormal 441088790895 - [facility] Prot Ur Strip.auto-mCnc Trace Normal - [facility] Bilirub Ur Ql Strip.auto Negative Normal [id number] - [facility] WBC # Ur Strip Negative Normal 328063837129 - [facility] Nitrite Ur Ql Strip.auto Negative Normal [id number] - [facility] Clarity Ur Refract.auto Clear Normal - [facility] pH Ur Strip.auto 7 Normal 871992848773 5.5 - 7.5 [facility] Urobilinogen Ur Strip-mCnc 3mg/dL Above high normal [id number] - [facility] Sp Gr Ur Refract.auto 1.029 Normal 1.005 - 1.03 [facility] B[facility] SPECIMEN EXPIRATION DATE AND TIME 12/18/2023 23:59 Normal [facility] ABO GROUPING O Normal [facility] ANTIBODY SCREEN NEG Normal [facility] RH TYPE POS Normal [facility] Hgb Bld-mCnc 8.1g/dL Below low normal [id number] 13.2 - 17.1 [facility] Eosinophil # Bld Auto 0.58k3377/uL Normal [id number] 0 - 1 [facility] MCHC RBC Auto-mCnc 31.5g/dL Normal [id number] 31 - 36 [facility] PMV Bld Auto 11.3fL Normal [id number] 8 - 12 [facility] Basophils/leuk NFr Bld Auto 0.2% Normal [id number] 0 - 1.4 [facility] Monocytes/leuk NFr Bld Auto 9.5% Normal 853884616640 4 - 12 [facility] RDW RBC Auto-Rto 15.4% Above high normal 131333242867 11 - 15 [facility] Monocytes # Bld Auto 0.78a3586/uL Normal 965566883883 0 - 1 [facility] Basophils # Bld Auto 0.56r7359/uL Normal [id number] 0 - 1 [facility] Imm Granulocytes # Bld Auto 0.75q5583/uL Normal 100631524164 0 - 0.3 [facility] Neutrophils # Bld Auto 3.60o2342/uL Normal 267309988078 2 - 7.6 [facility] Hct VFr Bld Auto 25.7% Below low normal 560541056145 38. 5 - 50 [facility] Lymphocytes/leuk NFr Bld Auto 28.3% Normal [id number] 17 - 50 [facility] Lymphocytes # Bld Auto 1.67e8350/uL Normal 693039856076 0.6 - 3.7 [facility] nRBC/100 WBC Bld Auto-Rto 0% Normal 169860605307 0 - 1 [facility] RBC # Bld Auto 2.83M/uL Below low normal 323922663495 4 - 6 [facility] Neutrophils/leuk NFr Bld Auto 58.6% Normal 39 - 72 [facility] Eosinophil/leuk NFr Bld Auto 2.9% Normal 0 - 5 [facility] Imm Granulocytes/leuk NFr Bld Auto 0.5% Normal 0 - 1 [facility] WBC # Bld Auto 5.5y9414/uL Normal 4 - 11 [facility] nRBC # Bld Auto 0r6163/uL Normal 0 - 1 [facility] MCV RBC Auto 90.8fL Normal 80 - 100 [facility] MCH RBC Qn Auto 28.6pg Normal 27 - 33 [facility] Platelet # Bld Auto 508w4833/uL Above high normal 7073823281 05 150 - 420 [facility] Magnesium SerPl-mCnc 1.9mg/dL Normal 1.7 - 2.4 [facility] Phosphate SerPl-mCnc 3.6mg/dL Normal 2.2 - 4.5 [facility] BUN SerPl-mCnc 20mg/dL Normal 6 - 20 [facility] Creat SerPl-mCnc 0.51mg/dL Normal 0.4 - 1.3 [facility] Anion Gap3 SerPl-sCnc 9 Normal 7 - 17 [facility] GFR/BSA.pred SerPlBld QPY-MXE-CcLYex 60mL/min/1.73m2 Normal - [facility] HCO3 SerPl-sCnc 28mmol/L Normal 20 - 30 [facility] Glucose SerPl-mCnc 153mg/dL Above high normal 70 - 100 [facility] BUN/Creat SerPl 39.2 Above high normal 8 - 23 [facility] Chloride SerPl-sCnc 103mmol/L Normal 98 - 10 7 [facility] Calcium SerPl-mCnc 9.4mg/dL Normal 8.8 - 10.2 [facility] Sodium SerPl-sCnc 140mmol/L Normal [id number] 136 - 144 [facility] Potassium SerPl-sCnc 3.9mmol/L Normal [id number] 3.3 - 5.3 [facility] BUN SerPl-mCnc 23mg/dL Above high normal 505473092853 6 - 20 [facility] Creat SerPl-mCnc 0.57mg/dL Normal 176069137159 0.4 - 1.3 [facility] Anion Gap3 SerPl-sCnc 10 Normal 355760262312 7 - 17 [facility] GFR/BSA.pred SerPlBld CIQ-WQE-BjTIif 60mL/min/1.73m2 Normal - [facility] HCO3 SerPl-sCnc 27mmol/L Normal [id number] 20 - 30 [facility] Glucose SerPl-mCnc 118mg/dL Above high normal 348822753068 70 - 100 [facility] BUN/Creat SerPl 40.4 Above high normal 125707750729 8 - 23 [facility] Chloride SerPl-sCnc 105mmol/L Normal 397586206829 98 - 10 7 [facility] Calcium SerPl-mCnc 9.1mg/dL Normal 506186867434 8.8 - 10.2 [facility] Sodium SerPl-sCnc 142mmol/L Normal [id number] 136 - 144 [facility] Potassium SerPl-sCnc 3.8mmol/L Normal 222581669766 3.3 - 5.3 [facility] Phosphate SerPl-mCnc 3.8mg/dL Normal 432132675507 2.2 - 4.5 [facility] Magnesium SerPl-mCnc 1.8mg/dL Normal 003578011417 1.7 - 2.4 [facility] Hgb Bld-mCnc 7.5g/dL Below low normal 505204383156 13.2 - 17.1 [facility] Eosinophil # Bld Auto 0.0p0009/uL Normal 689581824489 0 - 1 [facility] MCHC RBC Auto-mCnc 30.2g/dL Below low normal 568291939288 3 1 - 36 [facility] PMV Bld Auto 11fL Normal 476417206235 8 - 12 [facility] Basophils/leuk NFr Bld Auto 0.4% Normal 054491532734 0 - 1.4 [facility] Monocytes/leuk NFr Bld Auto 9.1% Normal 355417703862 4 - 12 [facility] RDW RBC Auto-Rto 15.8% Above high normal 331444376266 11 - 15 [facility] Mon[facility] # Bld Auto 0.97s6910/uL Normal 085048412683 0 - 1 [facility] Basophils # Bld Auto 0.46o6699/uL Normal [id number] 0 - 1 [facility] Granulocytes # Bld Auto 0.80z9027/uL Normal 937784966593 0 - 0.3 [facility] Neutrophils # Bld Auto 2.86f9277/uL Normal 779356545160 2 - 7.6 [facility] Hct VFr Bld Auto 24.8% Below low normal 348876711687 38. 5 - 50 [facility] Lymphocytes/leuk NFr Bld Auto 28.4% Normal 930892060697 17 - 50 [facility] Lymph[facility] # Bld Auto 1.43h6331/uL Normal 277088278987 0.6 - 3.7 [facility] nRBC/100 WBC Bld Auto-Rto 0% Normal 838317707725 0 - 1 [facility] RBC # Bld Auto 2.68M/uL Below low normal 283850525103 4 - 6 [facility] Neutrophils/leuk NFr Bld Auto 57% Normal 253182501375 39 - 72 [facility] Eosinophil/leuk NFr Bld Auto 4.4% Normal 683293421896 0 - 5 [facility] Granulocytes/leuk NFr Bld Auto 0.7% Normal 498321101060 0 - 1 [facility] WBC # Bld Auto 4.3r1366/uL Normal 835021847592 4 - 11 [facility] nRBC # Bld Auto 2j2320/uL Normal 817034199828 0 - 1 [facility] MCV RBC Auto 92.5fL Normal 021501251804 80 - 100 [facility] MCH RBC Qn Auto 28pg Normal [id number] 27 - 33 [facility] Platelet # Bld Auto 734c0424/uL Normal [id number] 150 - 420 [facility] Procalcitonin SerPl-mCnc 0.09ng/mL Normal 484511522260 - [facility] BUN SerPl-mCnc 22mg/dL Above high normal 894514067623 6 - 20 [facility] Creat SerPl-mCnc 0.54mg/dL Normal 392919721216 0.4 - 1.3 [facility] Anion Gap3 SerPl-sCnc 8 Normal 570038522839 7 - 17 [facility] GFR/BSA.pred SerPlBld SZO-NEV-KyYXfa 60mL/min/1.73m2 Normal 519605969865 - [facility] HCO3 SerPl-sCnc 29mmol/L Normal 648566242975 20 - 30 [facility] Glucose SerPl-mCnc 158mg/dL Above high normal 314162512309 70 - 100 [facility] BUN/Creat SerPl 40.7 Above high normal 660592526736 8 - 23 [facility] Chloride SerPl-sCnc 104mmol/L Normal 370807767392 98 - 10 7 [facility] Calcium SerPl-mCnc 9.2mg/dL Normal 677212347372 8.8 - 10.2 [facility] Sodium SerPl-sCnc 141mmol/L Normal 615824061414 136 - 144 [facility] Potassium SerPl-sCnc 4mmol/L Normal 962735279621 3.3 - 5.3 [facility] Phosphate SerPl-mCnc 4.1mg/dL Normal 913144577135 2.2 - 4.5 [facility] Magnesium SerPl-mCnc 2mg/dL Normal 349423079889 1.7 - 2.4 [facility] Hgb Bld-mCnc 7.4g/dL Below low normal 704792733854 13.2 - 17.1 [facility] Eosinophil # Bld Auto 0.28k3162/uL Normal 549291458502 0 - 1 [facility] MCHC RBC Auto-mCnc 29.6g/dL Below low normal 142609943256 3 1 - 36 [facility] PMV Bld Auto 11.1fL Normal 054877925893 8 - 12 [facility] Basophils/leuk NFr Bld Auto 0.4% Normal 905884244659 0 - 1.4 [facility] Monocytes/leuk NFr Bld Auto 8.3% Normal 161466214959 4 - 12 [facility] RDW RBC Auto-Rto 15.7% Above high normal 078486519218 11 - 15 [facility] Mon[facility] # Bld Auto 0.41i7875/uL Normal 180188088217 0 - 1 [facility] Basophils # Bld Auto 0.31f9994/uL Normal 082169732444 0 - 1 [facility] Granulocytes # Bld Auto 0.31d1304/uL Normal 047520855506 0 - 0.3 [facility] Neutrophils # Bld Auto 2.70y6582/uL Normal 894873952501 2 - 7.6 [facility] Hct VFr Bld Auto 25% Below low normal 648919889939 38. 5 - 50 [facility] Lymphocytes/leuk NFr Bld Auto 31% Normal 883266690518 17 - 50 [facility] Lymph[facility] # Bld Auto 1.27h7622/uL Normal 166980114154 0.6 - 3.7 [facility] nRBC/100 WBC Bld Auto-Rto 0% Normal 969392828268 0 - 1 [facility] RBC # Bld Auto 2.64M/uL Below low normal 958851823752 4 - 6 [facility] Neutrophils/leuk NFr Bld Auto 56.1% Normal 466800279650 39 - 72 [facility] Eosinophil/leuk NFr Bld Auto 3.8% Normal 696226696551 0 - 5 [facility] Granulocytes/leuk NFr Bld Auto 0.4% Normal 874223264582 0 - 1 [facility] WBC # Bld Auto 4.8i2978/uL Normal 425859368232 4 - 11 [facility] nRBC # Bld Auto 6o8154/uL Normal 631491010183 0 - 1 [facility] MCV RBC Auto 94.7fL Normal 500050586824 80 - 100 [facility] MCH RBC Qn Auto 28pg Normal [id number] 27 - 33 [facility] Platelet # Bld Auto 286g7798/uL Normal 665773671072 150 - 420 [facility] pCO2 BldA 46mmHg Normal 960113819959 32 - 48 [facility] HCO3 std BldA-sCnc 27.4mmol/L Normal [id number] 21 - 28 [facility] BKR FIO2 (ARTERIAL BG DOMINGO QUESTION) 98% Normal 296838948398 [facility] pH BldA 7.39units Normal 331053670345 7.35 - 7.45 [facility] TEMPERATURE (ARTERIAL BG [place]INGO QUESTION) 99.9Fahrenheit Normal 656046944803 [facility] pO2 BldA 159mmHg Above high normal 384221073204 83 - 108 [facility] SaO2 % BldA 99% Above high normal 766318065140 94 - 98 [facility] Base excess std BldA Calc-sCnc 3mmol/L Normal 220110859365 - [facility] Hgb Bld-mCnc 7.6g/dL Below low normal 551841166380 13.2 - 17.1 [facility] Eosinophil # Bld Auto 0.12g7151/uL Normal 909411825866 0 - 1 [facility] MCHC RBC Auto-mCnc 30.9g/dL Below low normal 237423787960 3 1 - 36 [facility] PMV Bld Auto 11.2fL Normal 642769240822 8 - 12 [facility] Basophils/leuk NFr Bld Auto 0.6% Normal 730261910376 0 - 1.4 [facility] Monocytes/leuk NFr Bld Auto 9.4% Normal 293682027276 4 - 12 [facility] RDW RBC Auto-Rto 15.4% Above high normal 379318664846 11 - 15 [facility] Mon[facility] # Bld Auto 0.8w0734/uL Normal 458970494398 0 - 1 [facility] Basophils # Bld Auto 0.63c3476/uL Normal 717812603662 0 - 1 [facility] Granulocytes # Bld Auto 0.09y0348/uL Normal 630794837555 0 - 0.3 [facility] Neutrophils # Bld Auto 3.01k0577/uL Normal 975542663125 2 - 7.6 [facility] Hct VFr Bld Auto 24.6% Below low normal 605798867989 38. 5 - 50 [facility] Lymphocytes/leuk NFr Bld Auto 26.9% Normal 439875693680 17 - 50 [facility] Lymph[facility] # Bld Auto 1.26v5434/uL Normal [id number] 0.6 - 3.7 [facility] nRBC/100 WBC Bld Auto-Rto 0% Normal [id number] 0 - 1 [facility] RBC # Bld Auto 2.64M/uL Below low normal 824635848287 4 - 6 [facility] Neutrophils/leuk NFr Bld Auto 57.6% Normal 986458174101 39 - 72 [facility] Eosinophil/leuk NFr Bld Auto 4.7% Normal 686434055996 0 - 5 [facility] Granulocytes/leuk NFr Bld Auto 0.8% Normal 751705793481 0 - 1 [facility] WBC # Bld Auto 5.5j7978/uL Normal 240215715701 4 - 11 [facility] nRBC # Bld Auto 9c0965/uL Normal 819498637863 0 - 1 [facility] MCV RBC Auto 93.2fL Normal 347142271814 80 - 100 [facility] MCH RBC Qn Auto 28.8pg Normal 734332195069 27 - 33 [facility] Platelet # Bld Auto 412e9013/uL Above high normal 8689283518 34 150 - 420 [facility] BUN SerPl-mCnc 21mg/dL Above high normal 932931339251 6 - 20 [facility] Creat SerPl-mCnc 0.53mg/dL Normal 532441008526 0.4 - 1.3 [facility] Anion Gap3 SerPl-sCnc 10 Normal 093467279055 7 - 17 [facility] GFR/BSA.pred SerPlBld AUZ-TXH-OfBMiu 60mL/min/1.73m2 Normal 176136162651 - [facility] HCO3 SerPl-sCnc 27mmol/L Normal 652429804857 20 - 30 [facility] Glucose SerPl-mCnc 141mg/dL Above high normal 061607954931 70 - 100 [facility] BUN/Creat SerPl 39.6 Above high normal 120531587387 8 - 23 [facility] Chloride SerPl-sCnc 104mmol/L Normal 327132659376 98 - 10 7 [facility] Calcium SerPl-mCnc 9.2mg/dL Normal 359363662472 8.8 - 10.2 [facility] Sodium SerPl-sCnc 141mmol/L Normal 262883866311 136 - 144 [facility] Potassium SerPl-sCnc 4.3mmol/L Normal 739466223743 3.3 - 5.3 [facility] Phosphate SerPl-mCnc 4.8mg/dL Above high normal 094769777823 2.2 - 4.5 [facility] Magnesium SerPl-mCnc 2mg/dL Normal 465935232089 1.7 - 2.4 [facility] SPECIMEN EXPIRATION DATE AND TIME 12/14/2023 23:59 Normal 784218083919 [facility] ABO GROUPING O Normal 376758795341 [facility] ANTIBODY SCREEN NEG Normal 859282745651 [facility] RH TYPE POS Normal 488969923956 [facility] Valproate SerPl-mCnc 13ug/mL Below low normal 159732235621 50 - 100 [facility] Phosphate SerPl-mCnc 2.9mg/dL Normal 900213532154 2.2 - 4.5 [facility] BUN SerPl-mCnc 20mg/dL Normal 529107919499 6 - 20 [facility] Creat SerPl-mCnc 0.55mg/dL Normal [id number] 0.4 - 1.3 [facility] Anion Gap3 SerPl-sCnc 11 Normal 772686764885 7 - 17 [facility] GFR/BSA.pred SerPlBld THA-SBQ-TrEMkv 60mL/min/1.73m2 Normal 586065322751 - [facility] HCO3 SerPl-sCnc 25mmol/L Normal 956161878763 20 - 30 [facility] Glucose SerPl-mCnc 147mg/dL Above high normal 246664242169 70 - 100 [facility] BUN/Creat SerPl 36.4 Above high normal 917726977077 8 - 23 [facility] Chloride SerPl-sCnc 103mmol/L Normal 860453260879 98 - 10 7 [facility] Calcium SerPl-mCnc 9.4mg/dL Normal 343325765561 8.8 - 10.2 [facility] Sodium SerPl-sCnc 139mmol/L Normal 073128850372 136 - 144 [facility] Potassium SerPl-sCnc 3.8mmol/L Normal 543429943049 3.3 - 5.3 [facility] Magnesium SerPl-mCnc 1.9mg/dL Normal 180401450900 1.7 - 2.4 [facility] Hgb Bld-mCnc 7.9g/dL Below low normal 634749150157 13.2 - 17.1 [facility] Eosinophil # Bld Auto 0.57j5821/uL Normal 118368044673 0 - 1 [facility] MCHC RBC Auto-mCnc 31.3g/dL Normal 218932181375 31 - 36 [facility] PMV Bld Auto 11fL Normal 062374340522 8 - 12 [facility] Basophils/leuk NFr Bld Auto 0.3% Normal 801031324924 0 - 1.4 [facility] Monocytes/leuk NFr Bld Auto 7.8% Normal 356118205607 4 - 12 [facility] RDW RBC Auto-Rto 14.9% Normal 953635670077 11 - 15 [facility] Monocytes # Bld Auto 0.39n7774/uL Normal 426678489260 0 - 1 [facility] Basophils # Bld Auto 0.97p9833/uL Normal 436004292044 0 - 1 [facility] Imm Granulocytes # Bld Auto 0.98r3196/uL Normal 545955893387 0 - 0.3 [facility] Neutrophils # Bld Auto 3.75d0785/uL Normal 315164547400 2 - 7.6 [facility] Hct VFr Bld Auto 25.2% Below low normal 469161689582 38. 5 - 50 [facility] Lymphocytes/leuk NFr Bld Auto 26.8% Normal 385458687352 17 - 50 [facility] Lymphocytes # Bld Auto 1.18v6457/uL Normal 822548593733 0.6 - 3.7 [facility] nRBC/100 WBC Bld Auto-Rto 0% Normal 314274284190 0 - 1 [facility] RBC # Bld Auto 2.77M/uL Below low normal 033020281793 4 - 6 [facility] Neutrophils/leuk NFr Bld Auto 61.1% Normal 994123259407 39 - 72 [facility] Eosinophil/leuk NFr Bld Auto 3.7% Normal 495726973120 0 - 5 [facility] Granulocytes/leuk NFr Bld Auto 0.3% Normal 956234274054 0 - 1 [facility] WBC # Bld Auto 6.6l4952/uL Normal 307636296167 4 - 11 [facility] nRBC # Bld Auto 8y3944/uL Normal 331179483685 0 - 1 [facility] MCV RBC Auto 91fL Normal 084889043130 80 - 100 [facility] MCH RBC Qn Auto 28.5pg Normal [id number] 27 - 33 [facility] Platelet # Bld Auto 558e5755/uL Above high normal 1442479026 17 150 - 420 [facility] Valproate SerPl-mCnc 40.3ug/mL Below low normal 575109474935 50 - 100 [facility] Vit B12 SerPl-mCnc 495pg/mL Normal 184322143841 232 - 1245 [facility] Prealb SerPl Neph-mCnc 17.3mg/dL Below low normal 230067513739 20 - 40 [facility] CRP SerPl HS-mCnc 7.5mg/L Above high normal 358609962743 - [facility] Phosphate SerPl-mCnc 4.6mg/dL Above high normal 621492969936 2.2 - 4.5 [facility] BUN SerPl-mCnc 22mg/dL Above high normal 985369452440 6 - 20 [facility] Creat SerPl-mCnc 0.56mg/dL Normal 480298326893 0.4 - 1.3 [facility] Anion Gap3 SerPl-sCnc 11 Normal 292235320106 7 - 17 [facility] GFR/BSA.pred SerPlBld EDN-BLL-GzMBbq 60mL/min/1.73m2 Normal 564292767600 - [facility] HCO3 SerPl-sCnc 25mmol/L Normal 270103791443 20 - 30 [facility] Glucose SerPl-mCnc 161mg/dL Above high normal 075973800271 70 - 100 [facility] BUN/Creat SerPl 39.3 Above high normal 814435515450 8 - 23 [facility] Chloride SerPl-sCnc 108mmol/L Above high normal 659414634575 98 - 107 [facility] Calcium SerPl-mCnc 9.3mg/dL Normal 516605542956 8.8 - 10.2 [facility] Sodium SerPl-sCnc 144mmol/L Normal 879204986963 136 - 144 [facility] Potassium SerPl-sCnc 4mmol/L Normal 289019534467 3.3 - 5.3 [facility] Magnesium SerPl-mCnc 2.1mg/dL Normal 995635869154 1.7 - 2.4 [facility] Hgb Bld-mCnc 7.7g/dL Below low normal 505595307106 13.2 - 17.1 [facility] Eosinophil # Bld Auto 0.06f5816/uL Normal 822341918188 0 - 1 [facility] MCHC RBC Auto-mCnc 31g/dL Normal 191455696756 31 - 36 [facility] PMV Bld Auto 11.3fL Normal 288204163358 8 - 12 [facility] Basophils/leuk NFr Bld Auto 0.7% Normal 857695909096 0 - 1.4 [facility] Monocytes/leuk NFr Bld Auto 8.7% Normal 578296219423 4 - 12 [facility] RDW RBC Auto-Rto 15.3% Above high normal 661097614536 11 - 15 [facility] Monocytes # Bld Auto 0.73o6301/uL Normal 501776918316 0 - 1 [facility] Basophils # Bld Auto 0.42z3794/uL Normal 248300158097 0 - 1 [facility] Imm Granulocytes # Bld Auto 0.43q4058/uL Normal 490679659465 0 - 0.3 [facility] Neutrophils # Bld Auto 2.45c7613/uL Normal 529553716396 2 - 7.6 [facility] Hct VFr Bld Auto 24.8% Below low normal 293168567297 38. 5 - 50 [facility] Lymphocytes/leuk NFr Bld Auto 33.4% Normal 496631604742 17 - 50 [facility] Lymphocytes # Bld Auto 1.82j7669/uL Normal 816494078405 0.6 - 3.7 [facility] nRBC/100 WBC Bld Auto-Rto 0% Normal 515919256230 0 - 1 [facility] RBC # Bld Auto 2.68M/uL Below low normal 269396612306 4 - 6 [facility] Neutrophils/leuk NFr Bld Auto 51% Normal 654263742561 39 - 72 [facility] Eosinophil/leuk NFr Bld Auto 5.8% Above high normal 032804557824 0 - 5 [facility] Imm Granulocytes/leuk NFr Bld Auto 0.4% Normal 044339383331 0 - 1 [facility] WBC # Bld Auto 5.1o7334/uL Normal 256204044931 4 - 11 [facility] nRBC # Bld Auto 1o6494/uL Normal 760819547071 0 - 1 [facility] MCV RBC Auto 92.5fL Normal 976348095779 80 - 100 [facility] MCH RBC Qn Auto 28.7pg Normal 403987581276 27 - 33 [facility] Platelet # Bld Auto 026z5277/uL Above high normal 2520463922 53 150 - 420 [facility] SPECIMEN EXPIRATION DATE AND TIME 12/11/2023 23:59 Normal 324295103738 [facility] ABO GROUPING O Normal 335121224214 [facility] ANTIBODY SCREEN NEG Normal 019725255526 [facility] RH TYPE POS Normal 564111823937 [facility] BUN SerPl-mCnc 20mg/dL Normal 908931303010 6 - 20 [facility] Creat SerPl-mCnc 0.55mg/dL Normal 627496546286 0.4 - 1.3 [facility] Anion Gap3 SerPl-sCnc 8 Normal 242278879980 7 - 17 [facility] GFR/BSA.pred SerPlBld FSG-XPZ-TqKEvm 60mL/min/1.73m2 Normal 639753745364 - [facility] HCO3 SerPl-sCnc 28mmol/L Normal 394215412265 20 - 30 [facility] Glucose SerPl-mCnc 151mg/dL Above high normal 274403083278 70 - 100 [facility] BUN/Creat SerPl 36.4 Above high normal 340597101411 8 - 23 [facility] Chloride SerPl-sCnc 107mmol/L Normal 037443154678 98 - 10 7 [facility] Calcium SerPl-mCnc 9.4mg/dL Normal 778128784136 8.8 - 10.2 [facility] Sodium SerPl-sCnc 143mmol/L Normal 645641900868 136 - 144 [facility] Potassium SerPl-sCnc 3.7mmol/L Normal 661893300245 3.3 - 5.3 [facility] Phosphate SerPl-mCnc 4.1mg/dL Normal 406970124780 2.2 - 4.5 [facility] Magnesium SerPl-mCnc 1.9mg/dL Normal 144469726156 1.7 - 2.4 [facility] Hgb Bld-mCnc 7.4g/dL Below low normal 511997989678 13.2 - 17.1 [facility] Eosinophil # Bld Auto 0.0v2671/uL Normal 275227265470 0 - 1 [facility] MCHC RBC Auto-mCnc 31g/dL Normal 346049227845 31 - 36 [facility] PMV Bld Auto 11.2fL Normal 509440382067 8 - 12 [facility] Basophils/leuk NFr Bld Auto 0.6% Normal 731543745164 0 - 1.4 [facility] Monocytes/leuk NFr Bld Auto 9.9% Normal 093769884615 4 - 12 [facility] RDW RBC Auto-Rto 15% Normal 117073808729 11 - 15 [facility] Monocytes # Bld Auto 0.23a5723/uL Normal 404108856614 0 - 1 [facility] Basophils # Bld Auto 0.32b8849/uL Normal 501516274374 0 - 1 [facility] Imm Granulocytes # Bld Auto 0.34k6595/uL Normal 181775729136 0 - 0.3 [facility] Neutrophils # Bld Auto 3.09w2622/uL Normal 671593804326 2 - 7.6 [facility] Hct VFr Bld Auto 23.9% Below low normal 570416322849 38. 5 - 50 [facility] Lymphocytes/leuk NFr Bld Auto 30% Normal 980838369382 17 - 50 [facility] Lymphocytes # Bld Auto 1.4y4169/uL Normal 807487101420 0.6 - 3.7 [facility] nRBC/100 WBC Bld Auto-Rto 0% Normal 313515679826 0 - 1 [facility] RBC # Bld Auto 2.57M/uL Below low normal 964422738198 4 - 6 [facility] Neutrophils/leuk NFr Bld Auto 57.4% Normal 211437941182 39 - 72 [facility] Eosinophil/leuk NFr Bld Auto 1.9% Normal 968050601411 0 - 5 [facility] Imm Granulocytes/leuk NFr Bld Auto 0.2% Normal 215115051446 0 - 1 [facility] WBC # Bld Auto 5.5w9898/uL Normal 967208742669 4 - 11 [facility] nRBC # Bld Auto 2d3476/uL Normal 038172418248 0 - 1 [facility] MCV RBC Auto 93fL Normal 911252681799 80 - 100 [facility] MCH RBC Qn Auto 28.8pg Normal 312021588202 27 - 33 [facility] Platelet # Bld Auto 104p5414/uL Above high normal 5196871408 20 150 - 420 [facility] Phosphate SerPl-mCnc 3.2mg/dL Normal 550210721959 2.2 - 4.5 [facility] BUN SerPl-mCnc 21mg/dL Above high normal 555859246858 6 - 20 [facility] Creat SerPl-mCnc 0.58mg/dL Normal 707590135660 0.4 - 1.3 [facility] Anion Gap3 SerPl-sCnc 9 Normal 841080030591 7 - 17 [facility] GFR/BSA.pred SerPlBld ZPE-PUR-RsUMzf 60mL/min/1.73m2 Normal [id number] - [facility] HCO3 SerPl-sCnc 29mmol/L Normal 776450966710 20 - 30 [facility] Glucose SerPl-mCnc 168mg/dL Above high normal 140677021406 70 - 100 [facility] BUN/Creat SerPl 36.2 Above high normal 260748977354 8 - 23 [facility] Chloride SerPl-sCnc 106mmol/L Normal 371867717761 98 - 10 7 [facility] Calcium SerPl-mCnc 9.2mg/dL Normal 742912582679 8.8 - 10.2 [facility] Sodium SerPl-sCnc 144mmol/L Normal 768341265519 136 - 144 [facility] Potassium SerPl-sCnc 3.6mmol/L Normal 277240072206 3.3 - 5.3 [facility] Magnesium SerPl-mCnc 1.9mg/dL Normal 152386170789 1.7 - 2.4 [facility] Hgb Bld-mCnc 7.1g/dL Below low normal 498827623600 13.2 - 17.1 [facility] Eosinophil # Bld Auto 0.51b6610/uL Normal 738188911748 0 - 1 [facility] MCHC RBC Auto-mCnc 30.7g/dL Below low normal 430327984984 3 1 - 36 [facility] PMV Bld Auto 11.1fL Normal 753032550038 8 - 12 [facility] Basophils/leuk NFr Bld Auto 0.3% Normal 890044592458 0 - 1.4 [facility] Monocytes/leuk NFr Bld Auto 10.6% Normal 745930621788 4 - 12 [facility] RDW RBC Auto-Rto 15.1% Above high normal 639457389865 11 - 15 [facility] Monocytes # Bld Auto 0.55f6382/uL Normal 979430267609 0 - 1 [facility] Basophils # Bld Auto 0.37r3827/uL Normal 940876005606 0 - 1 [facility] Imm Granulocytes # Bld Auto 0.42m9355/uL Normal 309365711449 0 - 0.3 [facility] Neutrophils # Bld Auto 3.53o1616/uL Normal 124987188275 2 - 7.6 [facility] Hct VFr Bld Auto 23.1% Below low normal 425078543601 38. 5 - 50 [facility] Lymphocytes/leuk NFr Bld Auto 28.5% Normal [id number] 17 - 50 [facility] Lymphocytes # Bld Auto 1.00y8335/uL Normal 424558994569 0.6 - 3.7 [facility] nRBC/100 WBC Bld Auto-Rto 0% Normal 420086490177 0 - 1 [facility] RBC # Bld Auto 2.48M/uL Below low normal 555799150935 4 - 6 [facility] Neutrophils/leuk NFr Bld Auto 57.2% Normal 680429244168 39 - 72 [facility] Eosinophil/leuk NFr Bld Auto 3.1% Normal 568570365587 0 - 5 [facility] Imm Granulocytes/leuk NFr Bld Auto 0.3% Normal 283728172300 0 - 1 [facility] WBC # Bld Auto 5.2t6182/uL Normal [id number] 4 - 11 [facility] nRBC # Bld Auto 1a1140/uL Normal 568914301837 0 - 1 [facility] MCV RBC Auto 93.1fL Normal 065240023934 80 - 100 [facility] MCH RBC Qn Auto 28.6pg Normal [id number] 27 - 33 [facility] Platelet # Bld Auto 552l9389/uL Above high normal 5092546144 45 150 - 420 [facility] Magnesium SerPl-mCnc 2.1mg/dL Normal 755229407885 1.7 - 2.4 [facility] BUN SerPl-mCnc 23mg/dL Above high normal 199761981954 6 - 20 [facility] Creat SerPl-mCnc 0.56mg/dL Normal 797858582224 0.4 - 1.3 [facility] Anion Gap3 SerPl-sCnc 12 Normal [id number] 7 - 17 [facility] GFR/BSA.pred SerPlBld FIJ-XSV-NyKMnt 60mL/min/1.73m2 Normal 450980506660 - [facility] HCO3 SerPl-sCnc 26mmol/L Normal [id number] 20 - 30 [facility] Glucose SerPl-mCnc 196mg/dL Above high normal 837280761018 70 - 100 [facility] BUN/Creat SerPl 41.1 Above high normal 988041553640 8 - 23 [facility] Chloride SerPl-sCnc 107mmol/L Normal 917721712148 98 - 10 7 [facility] Calcium SerPl-mCnc 9.4mg/dL Normal 115406610650 8.8 - 10.2 [facility] Sodium SerPl-sCnc 145mmol/L Above high normal 296069222268 1 36 - 144 [facility] Potassium SerPl-sCnc 3.9mmol/L Normal 038102691285 3.3 - 5.3 [facility] Phosphate SerPl-mCnc 3.2mg/dL Normal 164025205991 2.2 - 4.5 [facility] Hgb Bld-mCnc 7.5g/dL Below low normal 277141028811 13.2 - 17.1 [facility] Eosinophil # Bld Auto 0.35k0430/uL Normal 588353105059 0 - 1 [facility] MCHC RBC Auto-mCnc 31.6g/dL Normal 31 - 36 [facility] PMV Bld Auto 11.1fL Normal 281960525657 8 - 12 [facility] Basophils/leuk NFr Bld Auto 0.4% Normal 352359902123 0 - 1.4 [facility] Monocytes/leuk NFr Bld Auto 9.6% Normal 514095170647 4 - 12 [facility] RDW RBC Auto-Rto 15.4% Above high normal 063697952219 11 - 15 [facility] Monocytes # Bld Auto 0.57b8320/uL Normal 222197851032 0 - 1 [facility] Basophils # Bld Auto 0.13p5284/uL Normal 506018343640 0 - 1 [facility] Imm Granulocytes # Bld Auto 0.38e8947/uL Normal 654009321719 0 - 0.3 [facility] Neutrophils # Bld Auto 2.61r6949/uL Normal 968618897122 2 - 7.6 [facility] Hct VFr Bld Auto 23.7% Below low normal 690398206348 38. 5 - 50 [facility] Lymphocytes/leuk NFr Bld Auto 32% Normal 304445638954 17 - 50 [facility] Lymphocytes # Bld Auto 1.3h1881/uL Normal 108243546466 0.6 - 3.7 [facility] nRBC/100 WBC Bld Auto-Rto 0% Normal 886009690057 0 - 1 [facility] RBC # Bld Auto 2.54M/uL Below low normal 230128646769 4 - 6 [facility] Neutrophils/leuk NFr Bld Auto 52.3% Normal 081243321145 39 - 72 [facility] Eosinophil/leuk NFr Bld Auto 5.5% Above high normal 867553373004 0 - 5 [facility] Imm Granulocytes/leuk NFr Bld Auto 0.2% Normal 085342248845 0 - 1 [facility] WBC # Bld Auto 5.9t3980/uL Normal 228038858142 4 - 11 [facility] nRBC # Bld Auto 5j9971/uL Normal 472997184270 0 - 1 [facility] MCV RBC Auto 93.3fL Normal 518792502812 80 - 100 [facility] MCH RBC Qn Auto 29.5pg Normal 431693819527 27 - 33 [facility] Platelet # Bld Auto 952v3022/uL Above high normal 1670537529 25 150 - 420 [facility] Ammonia Plas-sCnc 25umol/L Normal 261725412099 11 - 35 [facility] AST/ALT SerPl-cRto 0.6 Normal 285518317632 - [facility] Bilirub Direct SerPl-mCnc 0.2mg/dL Normal 255607451766 - [facility] ALP SerPl-cCnc 120U/L Normal 830636336941 9 - 122 [facility] ALT SerPl w/o P-5'-P-cCnc 31U/L Normal 446080077767 9 - 59 [facility] AST SerPl w P-5'-P-cCnc 19U/L Normal 253117177328 10 - 35 [facility] Bilirub SerPl-mCnc 0.3mg/dL Normal [id number] - [facility] SPECIMEN EXPIRATION DATE AND TIME 12/08/2023 23:59 Normal [id number] [facility] ABO GROUPING O Normal [id number] [facility] ANTIBODY SCREEN NEG Normal [id number] [facility] RH TYPE POS Normal [id number] [facility] Hgb Bld-mCnc 7.6g/dL Below low normal 274000982918 13.2 - 17.1 [facility] Eosinophil # Bld Auto 0.03f5586/uL Normal 164510913450 0 - 1 [facility] MCHC RBC Auto-mCnc 30.6g/dL Below low normal 049726877559 3 1 - 36 [facility] PMV Bld Auto 11.3fL Normal 380363836769 8 - 12 [facility] Basophils/leuk NFr Bld Auto 0.3% Normal 202770063447 0 - 1.4 [facility] Monocytes/leuk NFr Bld Auto 7.4% Normal [id number] 4 - 12 [facility] RDW RBC Auto-Rto 15.7% Above high normal 757314037437 11 - 15 [facility] Monocytes # Bld Auto 0.75k6350/uL Normal 640817103579 0 - 1 [facility] Basophils # Bld Auto 0.21l2834/uL Normal 511954786695 0 - 1 [facility] Imm Granulocytes # Bld Auto 0.97x5435/uL Normal 934425214426 0 - 0.3 [facility] Neutrophils # Bld Auto 5.39x1270/uL Normal 967660115575 2 - 7.6 [facility] Hct VFr Bld Auto 24.8% Below low normal 032175550906 38. 5 - 50 [facility] Lymphocytes/leuk NFr Bld Auto 13.7% Below low normal 389920492026 17 - 50 [facility] Lymphocytes # Bld Auto 1.01x1868/uL Normal 678483081164 0.6 - 3.7 [facility] nRBC/100 WBC Bld Auto-Rto 0% Normal 178918900053 0 - 1 [facility] RBC # Bld Auto 2.63M/uL Below low normal 961637558348 4 - 6 [facility] Neutrophils/leuk NFr Bld Auto 77.7% Above high normal 328127744797 39 - 72 [facility] Eosinophil/leuk NFr Bld Auto 0.5% Normal 574993286597 0 - 5 [facility] Imm Granulocytes/leuk NFr Bld Auto 0.4% Normal 347084463467 0 - 1 [facility] WBC # Bld Auto 7.3h6687/uL Normal 839497377491 4 - 11 [facility] nRBC # Bld Auto 5c3586/uL Normal 267226684082 0 - 1 [facility] MCV RBC Auto 94.3fL Normal 750225497732 80 - 100 [facility] MCH RBC Qn Auto 28.9pg Normal 552442776792 27 - 33 [facility] Platelet # Bld Auto 133t8773/uL Above high normal 0663458541 11 150 - 420 [facility] BUN SerPl-mCnc 25mg/dL Above high normal 662941964117 6 - 20 [facility] Creat SerPl-mCnc 0.57mg/dL Normal 957697471541 0.4 - 1.3 [facility] Anion Gap3 SerPl-sCnc 11 Normal 790879136976 7 - 17 [facility] GFR/BSA.pred SerPlBld CKN-TCR-KqFHby 60mL/min/1.73m2 Normal 876052378912 - [facility] HCO3 SerPl-sCnc 24mmol/L Normal 446994337158 20 - 30 [facility] Glucose SerPl-mCnc 236mg/dL Above high normal 024498973262 70 - 100 [facility] BUN/Creat SerPl 43.9 Above high normal 235663001669 8 - 23 [facility] Chloride SerPl-sCnc 108mmol/L Above high normal 856855487482 98 - 107 [facility] Calcium SerPl-mCnc 9.2mg/dL Normal 144498400737 8.8 - 10.2 [facility] Sodium SerPl-sCnc 143mmol/L Normal 446847247765 136 - 144 [facility] Potassium SerPl-sCnc 4.1mmol/L Normal 973365433489 3.3 - 5.3 [facility] Phosphate SerPl-mCnc 4.1mg/dL Normal 717710118422 2.2 - 4.5 [facility] Magnesium SerPl-mCnc 2mg/dL Normal 818068300119 1.7 - 2.4 [facility] Phosphate SerPl-mCnc 4.2mg/dL Normal 684817137629 2.2 - 4.5 [facility] Magnesium SerPl-mCnc 1.9mg/dL Normal 885858663552 1.7 - 2.4 [facility] BUN SerPl-mCnc 21mg/dL Above high normal 535754271206 6 - 20 [facility] Creat SerPl-mCnc 0.62mg/dL Normal 500711008363 0.4 - 1.3 [facility] Anion Gap3 SerPl-sCnc 12 Normal [id number] 7 - 17 [facility] GFR/BSA.pred SerPlBld SGL-HXR-RhVCad 60mL/min/1.73m2 Normal 858945721664 - [facility] HCO3 SerPl-sCnc 24mmol/L Normal [id number] 20 - 30 [facility] Glucose SerPl-mCnc 207mg/dL Above high normal 173288341563 70 - 100 [facility] BUN/Creat SerPl 33.9 Above high normal 591406491146 8 - 23 [facility] Chloride SerPl-sCnc 108mmol/L Above high normal 241944701547 98 - 107 [facility] Calcium SerPl-mCnc 9.4mg/dL Normal 427884152171 8.8 - 10.2 [facility] Sodium SerPl-sCnc 144mmol/L Normal 606041137180 136 - 144 [facility] Potassium SerPl-sCnc 3.3mmol/L Normal 304172491870 3.3 - 5.3 [facility] Hgb Bld-mCnc 7.9g/dL Below low normal 857413265909 13.2 - 17.1 [facility] Eosinophil # Bld Auto 0.55i2105/uL Normal 992066999943 0 - 1 [facility] MCHC RBC Auto-mCnc 30.9g/dL Below low normal 307620855765 3 1 - 36 [facility] PMV Bld Auto 11.3fL Normal 889714479661 8 - 12 [facility] Basophils/leuk NFr Bld Auto 0.4% Normal 774621954808 0 - 1.4 [facility] Monocytes/leuk NFr Bld Auto 12.7% Above high normal 797386358465 4 - 12 [facility] RDW RBC Auto-Rto 15.9% Above high normal 599796974245 11 - 15 [facility] Monocytes # Bld Auto 0.00e2274/uL Normal 824736448245 0 - 1 [facility] Basophils # Bld Auto 0.80e6959/uL Normal 773183356761 0 - 1 [facility] Imm Granulocytes # Bld Auto 0.55u4442/uL Normal 508089607415 0 - 0.3 [facility] Neutrophils # Bld Auto 4.18v9602/uL Normal 701572807216 2 - 7.6 [facility] Hct VFr Bld Auto 25.6% Below low normal 951530494150 38. 5 - 50 [facility] Lymphocytes/leuk NFr Bld Auto 22.2% Normal 743429804752 17 - 50 [facility] Lymphocytes # Bld Auto 1.17s0071/uL Normal 741681945044 0.6 - 3.7 [facility] nRBC/100 WBC Bld Auto-Rto 0% Normal 147103748993 0 - 1 [facility] RBC # Bld Auto 2.77M/uL Below low normal 994837303577 4 - 6 [facility] Neutrophils/leuk NFr Bld Auto 64% Normal 931834916278 39 - 72 [facility] Eosinophil/leuk NFr Bld Auto 0.3% Normal 472988014569 0 - 5 [facility] Granulocytes/leuk NFr Bld Auto 0.4% Normal 926362089506 0 - 1 [facility] WBC # Bld Auto 7.3f6621/uL Normal 345735206450 4 - 11 [facility] nRBC # Bld Auto 8e4935/uL Normal 690286701334 0 - 1 [facility] MCV RBC Auto 92.4fL Normal 256408255048 80 - 100 [facility] MCH RBC Qn Auto 28.5pg Normal 111234811257 27 - 33 [facility] Platelet # Bld Auto 820v4095/uL Above high normal 6786153325 39 150 - 420 [facility] Ammonia Plas-sCnc 21umol/L Normal 822613333320 11 - 35 [facility] Procalcitonin SerPl-mCnc 0.09ng/mL Normal 356287711018 - [facility] Phosphate SerPl-mCnc 3.3mg/dL Normal 205006415520 2.2 - 4.5 [facility] BUN SerPl-mCnc 24mg/dL Above high normal 120409822975 6 - 20 [facility] Creat SerPl-mCnc 0.58mg/dL Normal 740977790259 0.4 - 1.3 [facility] Anion Gap3 SerPl-sCnc 11 Normal 421515234418 7 - 17 [facility] GFR/BSA.pred SerPlBld EVI-GNH-ZeGLfx 60mL/min/1.73m2 Normal 143459827154 - [facility] HCO3 SerPl-sCnc 26mmol/L Normal 116992880342 20 - 30 [facility] Glucose SerPl-mCnc 203mg/dL Above high normal 000478824765 70 - 100 [facility] BUN/Creat SerPl 41.4 Above high normal 515023765457 8 - 23 [facility] Chloride SerPl-sCnc 105mmol/L Normal 874536976659 98 - 10 7 [facility] Calcium SerPl-mCnc 9.6mg/dL Normal 560738319716 8.8 - 10.2 [facility] Sodium SerPl-sCnc 142mmol/L Normal 722317769115 136 - 144 [facility] Potassium SerPl-sCnc 3.6mmol/L Normal 284242497475 3.3 - 5.3 [facility] Magnesium SerPl-mCnc 1.9mg/dL Normal 428393041896 1.7 - 2.4 [facility] Hgb Bld-mCnc 7.7g/dL Below low normal 526614766397 13.2 - 17.1 [facility] Eosinophil # Bld Auto 0.95l3465/uL Normal 777707803138 0 - 1 [facility] MCHC RBC Auto-mCnc 32.1g/dL Normal 767556664862 31 - 36 [facility] PMV Bld Auto 11.2fL Normal 122714763381 8 - 12 [facility] Basophils/leuk NFr Bld Auto 0.4% Normal 456568887185 0 - 1.4 [facility] Monocytes/leuk NFr Bld Auto 11.2% Normal 284095064673 4 - 12 [facility] RDW RBC Auto-Rto 15.4% Above high normal 536071718401 11 - 15 [facility] Monocytes # Bld Auto 0.00m7360/uL Normal 205271873306 0 - 1 [facility] Basophils # Bld Auto 0.30j0032/uL Normal 467713504487 0 - 1 [facility] Imm Granulocytes # Bld Auto 0.73c2618/uL Normal 998751799578 0 - 0.3 [facility] Neutrophils # Bld Auto 5.28t4881/uL Normal [id number] 2 - 7.6 [facility] Hct VFr Bld Auto 24% Below low normal 934636405725 38. 5 - 50 [facility] Lymphocytes/leuk NFr Bld Auto 19.7% Normal 464051457206 17 - 50 [facility] Lymphocytes # Bld Auto 1.74x3614/uL Normal [id number] 0.6 - 3.7 [facility] nRBC/100 WBC Bld Auto-Rto 0% Normal 718769552807 0 - 1 [facility] RBC # Bld Auto 2.66M/uL Below low normal 359489612056 4 - 6 [facility] Neutrophils/leuk NFr Bld Auto 67.8% Normal 038249814764 39 - 72 [facility] Eosinophil/leuk NFr Bld Auto 0.5% Normal 725988247538 0 - 5 [facility] Granulocytes/leuk NFr Bld Auto 0.4% Normal 296288873892 0 - 1 [facility] WBC # Bld Auto 7.9z9537/uL Normal 521602181479 4 - 11 [facility] nRBC # Bld Auto 4y9460/uL Normal 487980159718 0 - 1 [facility] MCV RBC Auto 90.2fL Normal 890199639461 80 - 100 [facility] MCH RBC Qn Auto 28.9pg Normal 461922519721 27 - 33 [facility] Platelet # Bld Auto 959b6702/uL Above high normal 4234791076 42 150 - 420 [facility] SPECIMEN EXPIRATION DATE AND TIME 12/05/2023 23:59 Normal [id number] [facility] ABO GROUPING O Normal [id number] [facility] ANTIBODY SCREEN NEG Normal 781796427841 [facility] RH TYPE POS Normal 056547894352 [facility] BUN SerPl-mCnc 23mg/dL Above high normal 799653476516 6 - 20 [facility] Creat SerPl-mCnc 0.48mg/dL Normal 911483803260 0.4 - 1.3 [facility] Anion Gap3 SerPl-sCnc 9 Normal 404738246415 7 - 17 [facility] GFR/BSA.pred SerPlBld WVW-FBG-WoNIty 60mL/min/1.73m2 Normal 734013144667 - [facility] HCO3 SerPl-sCnc 29mmol/L Normal 225313217624 20 - 30 [facility] Glucose SerPl-mCnc 168mg/dL Above high normal 160924110505 70 - 100 [facility] BUN/Creat SerPl 47.9 Above high normal 693138195918 8 - 23 [facility] Chloride SerPl-sCnc 102mmol/L Normal [id number] 98 - 10 7 [facility] Calcium SerPl-mCnc 9.1mg/dL Normal 785441458188 8.8 - 10.2 [facility] Sodium SerPl-sCnc 140mmol/L Normal 486698890645 136 - 144 [facility] Potassium SerPl-sCnc 4.1mmol/L Normal 476278334802 3.3 - 5.3 [facility] CRP SerPl HS-mCnc 14.1mg/L Above high normal 766195885726 - [facility] Magnesium SerPl-mCnc 1.8mg/dL Normal 004734760581 1.7 - 2.4 [facility] Phosphate SerPl-mCnc 3.3mg/dL Normal 771700703325 2.2 - 4.5 [facility] Prealb SerPl Neph-mCnc 17.5mg/dL Below low normal 531171536481 20 - 40 [facility] Hgb Bld-mCnc 7.2g/dL Below low normal 656816040709 13.2 - 17.1 [facility] Eosinophil # Bld Auto 0.94p6097/uL Normal 610552128952 0 - 1 [facility] MCHC RBC Auto-mCnc 32g/dL Normal 826578161267 31 - 36 [facility] PMV Bld Auto 11.1fL Normal 927511414727 8 - 12 [facility] Basophils/leuk NFr Bld Auto 0.4% Normal 961879073088 0 - 1.4 [facility] Monocytes/leuk NFr Bld Auto 18.8% Above high normal 669049317235 4 - 12 [facility] RDW RBC Auto-Rto 15.3% Above high normal 749132514504 11 - 15 [facility] Monocytes # Bld Auto 1.65h7428/uL Above high normal 581482522795 0 - 1 [facility] Basophils # Bld Auto 0.49u6628/uL Normal 307876333958 0 - 1 [facility] Imm Granulocytes # Bld Auto 0.90p9360/uL Normal 373453963950 0 - 0.3 [facility] Neutrophils # Bld Auto 2.29i0721/uL Normal 478311435088 2 - 7.6 [facility] Hct VFr Bld Auto 22.5% Below low normal 868286772567 38. 5 - 50 [facility] Lymphocytes/leuk NFr Bld Auto 31.2% Normal 728723578275 17 - 50 [facility] Lymphocytes # Bld Auto 1.82q4331/uL Normal 087593810753 0.6 - 3.7 [facility] nRBC/100 WBC Bld Auto-Rto 0% Normal 651379419215 0 - 1 [facility] RBC # Bld Auto 2.43M/uL Below low normal 570626275928 4 - 6 [facility] Neutrophils/leuk NFr Bld Auto 44.2% Normal 744654551516 39 - 72 [facility] Eosinophil/leuk NFr Bld Auto 5% Normal 567515104485 0 - 5 [facility] Granulocytes/leuk NFr Bld Auto 0.4% Normal 807343470280 0 - 1 [facility] WBC # Bld Auto 5.3r3782/uL Normal 533882891298 4 - 11 [facility] nRBC # Bld Auto 2j5474/uL Normal 195705691423 0 - 1 [facility] MCV RBC Auto 92.6fL Normal 486092279795 80 - 100 [facility] MCH RBC Qn Auto 29.6pg Normal 864702275740 27 - 33 [facility] Platelet # Bld Auto 136t1557/uL Above high normal 0620154356 20 150 - 420 [facility] BUN SerPl-mCnc 22mg/dL Above high normal 192827300955 6 - 20 [facility] Creat SerPl-mCnc 0.46mg/dL Normal 709045416959 0.4 - 1.3 [facility] Anion Gap3 SerPl-sCnc 10 Normal 526121099832 7 - 17 [facility] GFR/BSA.pred SerPlBld UXQ-WJJ-UbLLru 60mL/min/1.73m2 Normal 011995017816 - [facility] HCO3 SerPl-sCnc 27mmol/L Normal 611139127226 20 - 30 [facility] Glucose SerPl-mCnc 258mg/dL Above high normal 462662187169 70 - 100 [facility] BUN/Creat SerPl 47.8 Above high normal 774608652418 8 - 23 [facility] Chloride SerPl-sCnc 102mmol/L Normal 258877768696 98 - 10 7 [facility] Calcium SerPl-mCnc 8.7mg/dL Below low normal 67497811074 4 8.8 - 10.2 [facility] Sodium SerPl-sCnc 139mmol/L Normal 179200784904 136 - 144 [facility] Potassium SerPl-sCnc 3.7mmol/L Normal 093515090678 3.3 - 5.3 [facility] Phosphate SerPl-mCnc 2.7mg/dL Normal 121194114250 2.2 - 4.5 [facility] Magnesium SerPl-mCnc 1.9mg/dL Normal 257982940039 1.7 - 2.4 [facility] Hgb Bld-mCnc 7.4g/dL Below low normal 307469205251 13.2 - 17.1 [facility] Eosinophil # Bld Auto 0.10d6318/uL Normal 396700789871 0 - 1 [facility] MCHC RBC Auto-mCnc 30.5g/dL Below low normal 137656616587 3 1 - 36 [facility] PMV Bld Auto 11.2fL Normal 704754275487 8 - 12 [facility] Basophils/leuk NFr Bld Auto 0.6% Normal 147073677119 0 - 1.4 [facility] Monocytes/leuk NFr Bld Auto 20.4% Above high normal 289900727488 4 - 12 [facility] RDW RBC Auto-Rto 15.3% Above high normal 505308200197 11 - 15 [facility] Monocytes # Bld Auto 1.80d4708/uL Above high normal 683744750174 0 - 1 [facility] Basophils # Bld Auto 0.21w7310/uL Normal 543124337851 0 - 1 [facility] Imm Granulocytes # Bld Auto 0.46k7742/uL Normal 093889300157 0 - 0.3 [facility] Neutrophils # Bld Auto 2.38c7456/uL Normal 675798077345 2 - 7.6 [facility] Hct VFr Bld Auto 24.3% Below low normal 653961802271 38. 5 - 50 [facility] Lymphocytes/leuk NFr Bld Auto 20.2% Normal 642175207918 17 - 50 [facility] Lymphocytes # Bld Auto 4p0074/uL Normal 120932959767 0.6 - 3.7 [facility] nRBC/100 WBC Bld Auto-Rto 0% Normal 808112246848 0 - 1 [facility] RBC # Bld Auto 2.59M/uL Below low normal 418290606869 4 - 6 [facility] Neutrophils/leuk NFr Bld Auto 55.6% Normal 830660197610 39 - 72 [facility] Eosinophil/leuk NFr Bld Auto 2.6% Normal 083264374566 0 - 5 [facility] Imm Granulocytes/leuk NFr Bld Auto 0.6% Normal 252791719489 0 - 1 [facility] WBC # Bld Auto 4.5f2090/uL Normal 113142754077 4 - 11 [facility] nRBC # Bld Auto 4n5892/uL Normal 069794939067 0 - 1 [facility] MCV RBC Auto 93.8fL Normal 722897651012 80 - 100 [facility] MCH RBC Qn Auto 28.6pg Normal 118166733288 27 - 33 [facility] Platelet # Bld Auto 023z3827/uL Above high normal 9201661004 37 150 - 420 [facility] Bacteria # Ur Auto Rare Normal 946800588155 - [facility] RBC #/area UrnS Auto 1/HPF Normal 775763103842 0 - 2 [facility] Hyaline Casts #/area UrnS 1/LPF Normal 803782245925 0 - 3 [facility] Squamous #/area UrnS Auto 1/HPF Normal 638254073532 0 - 5 [facility] WBC #/area UrnS Auto 5/HPF Normal 450623216403 0 - 5 [facility] Gran Casts #/area UrnS LPF 1/LPF Above high normal 027800223620 - [facility] Glucose Ur Strip.auto-mCnc Negative Normal 391984763797 - [facility] Color Ur Auto Yellow Normal 432741202542 - [facility] Hgb Ur Ql Strip.auto Negative Normal 802003023267 - [facility] Ketones Ur Strip.auto-mCnc Trace Abnormal 210816092796 - [facility] Prot Ur Strip.auto-mCnc Trace Normal [id number] - [facility] Bilirub Ur Ql Strip.auto Negative Normal - [facility] WBC # Ur Strip 2+ Abnormal - [facility] Nitrite Ur Ql Strip.auto Negative Normal 788387070979 - [facility] Clarity Ur Refract.auto Clear Normal 275666757137 - [facility] pH Ur Strip.auto 6 Normal 819292091578 5.5 - 7.5 [facility] Urobilinogen Ur Strip-mCnc 2mg/dL Normal 432100633147 - [facility] Sp Gr Ur Refract.auto 1.039 Above high normal 686751905369 1.005 - 1.03 [facility] Procalcitonin SerPl-mCnc 0.09ng/mL Normal 255667071930 - [facility] Hgb Bld-mCnc 8.1g/dL Below low normal 639632375027 13.2 - 17.1 [facility] Eosinophil # Bld Auto 0.41f3812/uL Normal 756946805485 0 - 1 [facility] MCHC RBC Auto-mCnc 31.4g/dL Normal 433449981846 31 - 36 [facility] PMV Bld Auto 11.1fL Normal 8 - 12 [facility] Basophils/leuk NFr Bld Auto 0.3% Normal 760217362350 0 - 1.4 [facility] Monocytes/leuk NFr Bld Auto 14.7% Above high normal 501143950926 4 - 12 [facility] RDW RBC Auto-Rto 15.3% Above high normal 337645046543 11 - 15 [facility] Monocytes # Bld Auto 0.68q1304/uL Normal 991783695347 0 - 1 [facility] Basophils # Bld Auto 0.44s4980/uL Normal 438878657376 0 - 1 [facility] Imm Granulocytes # Bld Auto 0.89k8557/uL Normal 052989835216 0 - 0.3 [facility] Neutrophils # Bld Auto 4.10a8795/uL Normal 938737770352 2 - 7.6 [facility] Hct VFr Bld Auto 25.8% Below low normal 187189847928 38. 5 - 50 [facility] Lymphocytes/leuk NFr Bld Auto 16.8% Below low normal 626255003524 17 - 50 [facility] Lymphocytes # Bld Auto 1.54k8745/uL Normal 774367138862 0.6 - 3.7 [facility] nRBC/100 WBC Bld Auto-Rto 0% Normal 957336137963 0 - 1 [facility] RBC # Bld Auto 2.78M/uL Below low normal 293445448965 4 - 6 [facility] Neutrophils/leuk NFr Bld Auto 65.5% Normal 117795068079 39 - 72 [facility] Eosinophil/leuk NFr Bld Auto 1.9% Normal 811535204276 0 - 5 [facility] Imm Granulocytes/leuk NFr Bld Auto 0.8% Normal 887571576092 0 - 1 [facility] WBC # Bld Auto 6.2x9476/uL Normal 675060292390 4 - 11 [facility] nRBC # Bld Auto 3r5229/uL Normal 325068021897 0 - 1 [facility] MCV RBC Auto 92.8fL Normal 807493095237 80 - 100 [facility] MCH RBC Qn Auto 29.1pg Normal 748625757936 27 - 33 [facility] Platelet # Bld Auto 584s7514/uL Above high normal 2729551251 44 150 - 420 [facility] Phosphate SerPl-mCnc 2.8mg/dL Normal 273924788053 2.2 - 4.5 [facility] Magnesium SerPl-mCnc 1.9mg/dL Normal 701219477672 1.7 - 2.4 [facility] BUN SerPl-mCnc 22mg/dL Above high normal 314202457438 6 - 20 [facility] Creat SerPl-mCnc 0.46mg/dL Normal 780426582028 0.4 - 1.3 [facility] Anion Gap3 SerPl-sCnc 8 Normal 457399622005 7 - 17 [facility] GFR/BSA.pred SerPlBld ZKO-SEA-CoESwd 60mL/min/1.73m2 Normal 707395980876 - [facility] HCO3 SerPl-sCnc 27mmol/L Normal 250432827233 20 - 30 [facility] Glucose SerPl-mCnc 276mg/dL Above high normal 818448897264 70 - 100 [facility] BUN/Creat SerPl 47.8 Above high normal 291159172637 8 - 23 [facility] Chloride SerPl-sCnc 104mmol/L Normal 748165547171 98 - 10 7 [facility] Calcium SerPl-mCnc 8.8mg/dL Normal 093197370167 8.8 - 10.2 [facility] Sodium SerPl-sCnc 139mmol/L Normal 638913657187 136 - 144 [facility] Potassium SerPl-sCnc 4.3mmol/L Normal 594573353473 3.3 - 5.3 [facility] Hgb Bld-mCnc 7.7g/dL Below low normal 485229698522 13.2 - 17.1 [facility] Eosinophil # Bld Auto 0.63b9820/uL Normal 753745899636 0 - 1 [facility] MCHC RBC Auto-mCnc 30.2g/dL Below low normal 879873575995 3 1 - 36 [facility] PMV Bld Auto 11.3fL Normal 151356776096 8 - 12 [facility] Basophils/leuk NFr Bld Auto 0.2% Normal 731953663046 0 - 1.4 [facility] Monocytes/leuk NFr Bld Auto 9.8% Normal 730918250889 4 - 12 [facility] RDW RBC Auto-Rto 15.3% Above high normal 506713673001 11 - 15 [facility] Monocytes # Bld Auto 0.59v3232/uL Normal 666855994424 0 - 1 [facility] Basophils # Bld Auto 0.44b1573/uL Normal 205871213299 0 - 1 [facility] Imm Granulocytes # Bld Auto 0.23i8232/uL Normal 191273939979 0 - 0.3 [facility] Neutrophils # Bld Auto 6.98p0180/uL Normal 882726432221 2 - 7.6 [facility] Hct VFr Bld Auto 25.5% Below low normal 676588765696 38. 5 - 50 [facility] Lymphocytes/leuk NFr Bld Auto 15% Below low normal 214592959221 17 - 50 [facility] Lymphocytes # Bld Auto 1.65v3893/uL Normal 059448107654 0.6 - 3.7 [facility] nRBC/100 WBC Bld Auto-Rto 0% Normal 522142916601 0 - 1 [facility] RBC # Bld Auto 2.72M/uL Below low normal 078201071136 4 - 6 [facility] Neutrophils/leuk NFr Bld Auto 74.2% Above high normal 700974019030 39 - 72 [facility] Eosinophil/leuk NFr Bld Auto 0.1% Normal 761680322647 0 - 5 [facility] Imm Granulocytes/leuk NFr Bld Auto 0.7% Normal 003051287017 0 - 1 [facility] WBC # Bld Auto 8.6d7890/uL Normal 903451641665 4 - 11 [facility] nRBC # Bld Auto 5q0951/uL Normal 982987415188 0 - 1 [facility] MCV RBC Auto 93.8fL Normal 004024630943 80 - 100 [facility] MCH RBC Qn Auto 28.3pg Normal 224116685587 27 - 33 [facility] Platelet # Bld Auto 826m0848/uL Above high normal 8868054967 58 150 - 420 [facility] Ammonia Plas-sCnc 42umol/L Above high normal 934589113170 1 1 - 35 [facility] AST/ALT SerPl-cRto 0.6 Normal [id number] - [facility] Bilirub Direct SerPl-mCnc 0.2mg/dL Normal [id number] - [facility] ALP SerPl-cCnc 138U/L Above high normal [id number] 9 - 122 [facility] ALT SerPl w/o P-5'-P-cCnc 30U/L Normal [id number] 9 - 59 [facility] AST SerPl w P-5'-P-cCnc 18U/L Normal 10 - 35 [facility] Bilirub SerPl-mCnc 0.3mg/dL Normal [id number] - [facility] INR PPP 1.01 Normal [id number] 0.86 - 1.12 [facility] Prothrombin time 11.2seconds Normal 155780032543 9.6 - 12.3 [facility] aPTT PPP 35.8seconds Above high normal 224875564613 23 - 31 .4 [facility] BKR SPECIMEN EXPIRATION DATE AND TIME 12/02/2023 23:59 Normal [id number] [facility] ABO GROUPING O Normal [id number] [facility] ANTIBODY SCREEN NEG Normal 517659707636 [facility] RH TYPE POS Normal [id number] [facility] Magnesium SerPl-mCnc 1.8mg/dL Normal 169348859584 1.7 - 2.4 [facility] Phosphate SerPl-mCnc 3.1mg/dL Normal 773588677591 2.2 - 4.5 [facility] BUN SerPl-mCnc 22mg/dL Above high normal 714504819935 6 - 20 [facility] Creat SerPl-mCnc 0.58mg/dL Normal 511429803894 0.4 - 1.3 [facility] Anion Gap3 SerPl-sCnc 9 Normal [id number] 7 - 17 [facility] GFR/BSA.pred SerPlBld JMC-MHY-JkUAzg 60mL/min/1.73m2 Normal 679848333788 - [facility] HCO3 SerPl-sCnc 26mmol/L Normal 738047129075 20 - 30 [facility] Glucose SerPl-mCnc 213mg/dL Above high normal 251662679863 70 - 100 [facility] BUN/Creat SerPl 37.9 Above high normal 172176042360 8 - 23 [facility] Chloride SerPl-sCnc 107mmol/L Normal 497274764261 98 - 10 7 [facility] Calcium SerPl-mCnc 9.1mg/dL Normal 202409883721 8.8 - 10.2 [facility] Sodium SerPl-sCnc 142mmol/L Normal 831781164438 136 - 144 [facility] Potassium SerPl-sCnc 4mmol/L Normal [id number] 3.3 - 5.3 [facility] Hgb Bld-mCnc 7.8g/dL Below low normal 722590254218 13.2 - 17.1 [facility] Eosinophil # Bld Auto 0.14x5976/uL Normal 470089773484 0 - 1 [facility] MCHC RBC Auto-mCnc 30.7g/dL Below low normal 177249358614 3 1 - 36 [facility] PMV Bld Auto 11.2fL Normal 193578285763 8 - 12 [facility] Basophils/leuk NFr Bld Auto 0.2% Normal 001103779626 0 - 1.4 [facility] Monocytes/leuk NFr Bld Auto 9.7% Normal 534358074149 4 - 12 [facility] RDW RBC Auto-Rto 15.3% Above high normal 804266026304 11 - 15 [facility] Monocytes # Bld Auto 0.6q8458/uL Normal 469769556449 0 - 1 [facility] Basophils # Bld Auto 0.01q5886/uL Normal 672120704493 0 - 1 [facility] Imm Granulocytes # Bld Auto 0.58b4821/uL Normal 542591312399 0 - 0.3 [facility] Neutrophils # Bld Auto 6.75q4175/uL Normal 928933883242 2 - 7.6 [facility] Hct VFr Bld Auto 25.4% Below low normal 443012740222 38. 5 - 50 [facility] Lymphocytes/leuk NFr Bld Auto 16.3% Below low normal 540925741340 17 - 50 [facility] Lymphocytes # Bld Auto 1.21q7201/uL Normal [id number] 0.6 - 3.7 [facility] nRBC/100 WBC Bld Auto-Rto 0% Normal 812832974489 0 - 1 [facility] RBC # Bld Auto 2.72M/uL Below low normal 999089192421 4 - 6 [facility] Neutrophils/leuk NFr Bld Auto 72.2% Above high normal 382917325626 39 - 72 [facility] Eosinophil/leuk NFr Bld Auto 1.2% Normal 974937164128 0 - 5 [facility] Imm Granulocytes/leuk NFr Bld Auto 0.4% Normal 168140550221 0 - 1 [facility] WBC # Bld Auto 9.3m8648/uL Normal 367878712787 4 - 11 [facility] nRBC # Bld Auto 0v8188/uL Normal 965473144587 0 - 1 [facility] MCV RBC Auto 93.4fL Normal 808583794342 80 - 100 [facility] MCH RBC Qn Auto 28.7pg Normal 117099690900 27 - 33 [facility] Platelet # Bld Auto 993o9818/uL Above high normal 7285628427 32 150 - 420 [facility] Path Interp Bld-Imp The low molecular weight heparin level is BELOW therapeutic range for both q12 \T\ q24 dosing. Normal [id number] [facility] UFH PPP Manager Hair-aCnc 0.29u/mL Normal 280398892820 - [facility] Phosphate SerPl-mCnc 3.3mg/dL Normal [id number] 2.2 - 4.5 [facility] BUN SerPl-mCnc 17mg/dL Normal 002604645382 6 - 20 [facility] Creat SerPl-mCnc 0.52mg/dL Normal 157116791379 0.4 - 1.3 [facility] Anion Gap3 SerPl-sCnc 10 Normal [id number] 7 - 17 [facility] GFR/BSA.pred SerPlBld HSX-CTS-QrBYkf 60mL/min/1.73m2 Normal 059929228910 - [facility] HCO3 SerPl-sCnc 26mmol/L Normal 850780299495 20 - 30 [facility] Glucose SerPl-mCnc 204mg/dL Above high normal 814625966482 70 - 100 [facility] BUN/Creat SerPl 32.7 Above high normal 071935502671 8 - 23 [facility] Chloride SerPl-sCnc 106mmol/L Normal 803760308844 98 - 10 7 [facility] Calcium SerPl-mCnc 9.4mg/dL Normal 510541209697 8.8 - 10.2 [facility] Sodium SerPl-sCnc 142mmol/L Normal 018592898773 136 - 144 [facility] Potassium SerPl-sCnc 4.4mmol/L Normal 651622197940 3.3 - 5.3 [facility] Magnesium SerPl-mCnc 1.8mg/dL Normal 960256905312 1.7 - 2.4 [facility] Hgb Bld-mCnc 8g/dL Below low normal 208708898317 13.2 - 17.1 [facility] Eosinophil # Bld Auto 0.67g0865/uL Normal 515551011467 0 - 1 [facility] MCHC RBC Auto-mCnc 30.9g/dL Below low normal 507351481621 3 1 - 36 [facility] PMV Bld Auto 11.5fL Normal [id number] 8 - 12 [facility] Basophils/leuk NFr Bld Auto 0.4% Normal 147196094664 0 - 1.4 [facility] Monocytes/leuk NFr Bld Auto 12.4% Above high normal 164217451502 4 - 12 [facility] RDW RBC Auto-Rto 15.1% Above high normal 578801061563 11 - 15 [facility] Monocytes # Bld Auto 1.55i0194/uL Above high normal 018693711824 0 - 1 [facility] Basophils # Bld Auto 0.91f6187/uL Normal [id number] 0 - 1 [facility] Granulocytes # Bld Auto 0.50s6210/uL Normal 950272587597 0 - 0.3 [facility] Neutrophils # Bld Auto 5.7i1363/uL Normal 829593703536 2 - 7.6 [facility] Hct VFr Bld Auto 25.9% Below low normal 179835847298 38. 5 - 50 [facility] Lymphocytes/leuk NFr Bld Auto 22.7% Normal 959234660211 17 - 50 [facility] Lymph[facility] # Bld Auto 2.9k2187/uL Normal 655431477189 0.6 - 3.7 [facility] nRBC/100 WBC Bld Auto-Rto 0% Normal 212481449031 0 - 1 [facility] RBC # Bld Auto 2.79M/uL Below low normal 247121299333 4 - 6 [facility] Neutrophils/leuk NFr Bld Auto 62.9% Normal 808188976652 39 - 72 [facility] Eosinophil/leuk NFr Bld Auto 1% Normal 761972487107 0 - 5 [facility] Granulocytes/leuk NFr Bld Auto 0.6% Normal 005121534991 0 - 1 [facility] WBC # Bld Auto 9.7r5007/uL Normal 778322203448 4 - 11 [facility] nRBC # Bld Auto 8l0206/uL Normal 310998268709 0 - 1 [facility] MCV RBC Auto 92.8fL Normal 016021186310 80 - 100 [facility] MCH RBC Qn Auto 28.7pg Normal 264580980721 27 - 33 [facility] Platelet # Bld Auto 746s7072/uL Above high normal 4252668638 48 150 - 420 [facility] Hgb Bld-mCnc 8.2g/dL Below low normal 055974912343 13.2 - 17.1 [facility] Eosinophil # Bld Auto 0.81l3317/uL Normal [id number] 0 - 1 [facility] MCHC RBC Auto-mCnc 32g/dL Normal 054224594052 31 - 36 [facility] PMV Bld Auto 11.4fL Normal 803445447189 8 - 12 [facility] Basophils/leuk NFr Bld Auto 0.4% Normal 810936191030 0 - 1.4 [facility] Monocytes/leuk NFr Bld Auto 11.4% Normal 089287239592 4 - 12 [facility] RDW RBC Auto-Rto 15% Normal 11 - 15 [facility] Mon[facility] # Bld Auto 1.33n6317/uL Above high normal 0 - 1 [facility] Basophils # Bld Auto 0.47e6054/uL Normal 326186612127 0 - 1 [facility] Granulocytes # Bld Auto 0.03g1611/uL Normal 019404210606 0 - 0.3 [facility] Neutrophils # Bld Auto 6.0n5370/uL Normal 2 - 7.6 [facility] Hct VFr Bld Auto 25.6% Below low normal 350916067186 38. 5 - 50 [facility] Lymphocytes/leuk NFr Bld Auto 15.6% Below low normal 17 - 50 [facility] Lymph[facility] # Bld Auto 1.23a1940/uL Normal 0.6 - 3.7 [facility] nRBC/100 WBC Bld Auto-Rto 0% Normal 0 - 1 [facility] RBC # Bld Auto 2.81M/uL Below low normal 4 - 6 [facility] Neutrophils/leuk NFr Bld Auto 71.1% Normal 39 - 72 [facility] Eosinophil/leuk NFr Bld Auto 0.9% Normal 0 - 5 [facility] Granulocytes/leuk NFr Bld Auto 0.6% Normal 0 - 1 [facility] WBC # Bld Auto 9.3t4581/uL Normal 4 - 11 [facility] nRBC # Bld Auto 1p4285/uL Normal 0 - 1 [facility] MCV RBC Auto 91.1fL Normal 80 - 100 [facility] MCH RBC Qn Auto 29.2pg Normal 27 - 33 [facility] Platelet # Bld Auto 227k1304/uL Above high normal 1211043346 34 150 - 420 [facility] Hgb Bld-mCnc 8.2g/dL Below low normal 655219881071 13.2 - 17.1 [facility] Eosinophil # Bld Auto 0.81c9187/uL Normal 296600966342 0 - 1 [facility] MCHC RBC Auto-mCnc 30.6g/dL Below low normal 566032112925 3 1 - 36 [facility] PMV Bld Auto 11.4fL Normal 664145667183 8 - 12 [facility] Basophils/leuk NFr Bld Auto 0.5% Normal 381309164590 0 - 1.4 [facility] Monocytes/leuk NFr Bld Auto 10.8% Normal 455755933694 4 - 12 [facility] RDW RBC Auto-Rto 15.5% Above high normal 829200232191 11 - 15 [facility] Mon[facility] # Bld Auto 0.88c3674/uL Normal 488402402491 0 - 1 [facility] Basophils # Bld Auto 0.04u4718/uL Normal 436057567162 0 - 1 [facility] Granulocytes # Bld Auto 0.87t3573/uL Normal 651553884722 0 - 0.3 [facility] Neutrophils # Bld Auto 5.58g6790/uL Normal 169129949675 2 - 7.6 [facility] Hct VFr Bld Auto 26.8% Below low normal 935650768734 38. 5 - 50 [facility] Lymphocytes/leuk NFr Bld Auto 17.4% Normal 878095504924 17 - 50 [facility] Lymph[facility] # Bld Auto 1.50m6337/uL Normal 265108618980 0.6 - 3.7 [facility] nRBC/100 WBC Bld Auto-Rto 0% Normal 253626781146 0 - 1 [facility] RBC # Bld Auto 2.92M/uL Below low normal [id number] 4 - 6 [facility] Neutrophils/leuk NFr Bld Auto 69.6% Normal 076461749782 39 - 72 [facility] Eosinophil/leuk NFr Bld Auto 1.1% Normal 001048009917 0 - 5 [facility] Granulocytes/leuk NFr Bld Auto 0.6% Normal 078471978041 0 - 1 [facility] WBC # Bld Auto 8.2p3975/uL Normal 4 - 11 [facility] nRBC # Bld Auto 9o1261/uL Normal 164563327421 0 - 1 [facility] MCV RBC Auto 91.8fL Normal 179877584492 80 - 100 [facility] MCH RBC Qn Auto 28.1pg Normal 613614933859 27 - 33 [facility] Platelet # Bld Auto 913a9038/uL Above high normal 7403733798 30 150 - 420 [facility] Phosphate SerPl-mCnc 3.5mg/dL Normal 076295246508 2.2 - 4.5 [facility] BUN SerPl-mCnc 17mg/dL Normal 6 - 20 [facility] Creat SerPl-mCnc 0.49mg/dL Normal 919147341660 0.4 - 1.3 [facility] Anion Gap3 SerPl-sCnc 10 Normal 008313681166 7 - 17 [facility] GFR/BSA.pred SerPlBld QSM-TRX-WeDUiq 60mL/min/1.73m2 Normal 615330926202 - [facility] HCO3 SerPl-sCnc 27mmol/L Normal 20 - 30 [facility] Glucose SerPl-mCnc 166mg/dL Above high normal 981529036798 70 - 100 [facility] BUN/Creat SerPl 34.7 Above high normal 664985129543 8 - 23 [facility] Chloride SerPl-sCnc 105mmol/L Normal 518499858137 98 - 10 7 [facility] Calcium SerPl-mCnc 9.3mg/dL Normal 345591536570 8.8 - 10.2 [facility] Sodium SerPl-sCnc 142mmol/L Normal 613307520555 136 - 144 [facility] Potassium SerPl-sCnc 4mmol/L Normal 768998091416 3.3 - 5.3 [facility] Magnesium SerPl-mCnc 1.8mg/dL Normal 740473128277 1.7 - 2.4 [facility] Hgb Bld-mCnc 7.7g/dL Below low normal 536063782044 13.2 - 17.1 [facility] Eosinophil # Bld Auto 0.55y0712/uL Normal 842811215368 0 - 1 [facility] MCHC RBC Auto-mCnc 31.2g/dL Normal 655091525834 31 - 36 [facility] PMV Bld Auto 11.2fL Normal 960185617633 8 - 12 [facility] Basophils/leuk NFr Bld Auto 0.6% Normal 770362348258 0 - 1.4 [facility] Monocytes/leuk NFr Bld Auto 11.2% Normal 220154460980 4 - 12 [facility] RDW RBC Auto-Rto 15.4% Above high normal 776765562359 11 - 15 [facility] Mon[facility] # Bld Auto 0.5s2822/uL Normal 768019339229 0 - 1 [facility] Basophils # Bld Auto 0.15u5667/uL Normal 087273471302 0 - 1 [facility] Granulocytes # Bld Auto 0.87o9908/uL Normal 982897233735 0 - 0.3 [facility] Neutrophils # Bld Auto 4.25a5365/uL Normal 534734338951 2 - 7.6 [facility] Hct VFr Bld Auto 24.7% Below low normal 047174909393 38. 5 - 50 [facility] Lymphocytes/leuk NFr Bld Auto 23.1% Normal 770342801151 17 - 50 [facility] Lymph[facility] # Bld Auto 1.46m3485/uL Normal 390280978561 0.6 - 3.7 [facility] nRBC/100 WBC Bld Auto-Rto 0% Normal 207602656068 0 - 1 [facility] RBC # Bld Auto 2.65M/uL Below low normal 528628495492 4 - 6 [facility] Neutrophils/leuk NFr Bld Auto 59.3% Normal 696684972695 39 - 72 [facility] Eosinophil/leuk NFr Bld Auto 5.2% Above high normal 515887594468 0 - 5 [facility] Granulocytes/leuk NFr Bld Auto 0.6% Normal 902225791326 0 - 1 [facility] WBC # Bld Auto 7.9z2377/uL Normal 859918854122 4 - 11 [facility] nRBC # Bld Auto 9k8471/uL Normal 059019566298 0 - 1 [facility] MCV RBC Auto 93.2fL Normal 067742111748 80 - 100 [facility] MCH RBC Qn Auto 29.1pg Normal 721558835269 27 - 33 [facility] Platelet # Bld Auto 048u9530/uL Above high normal 0313889854 49 150 - 420 [facility] Path Interp Bld-Imp The low molecular weight heparin level is BELOW therapeutic range for both q12 \T\ q24 dosing. Normal 850096493077 [facility] UFH PPP Manager Hair-aCnc 0.26u/mL Normal 068120367647 - [facility] Hgb Bld-mCnc 6.8g/dL Below low normal 005953236370 13.2 - 17.1 [facility] Eosinophil # Bld Auto 0.33l7627/uL Normal 121508212143 0 - 1 [facility] MCHC RBC Auto-mCnc 30.5g/dL Below low normal 063151711697 3 1 - 36 [facility] PMV Bld Auto 11.3fL Normal 794364695007 8 - 12 [facility] Basophils/leuk NFr Bld Auto 0.4% Normal 462242535310 0 - 1.4 [facility] Monocytes/leuk NFr Bld Auto 11.7% Normal 960444966726 4 - 12 [facility] RDW RBC Auto-Rto 14.4% Normal 861029248745 11 - 15 [facility] Monocytes # Bld Auto 0.59q2092/uL Normal 752743908737 0 - 1 [facility] Basophils # Bld Auto 0.78h7945/uL Normal 386242801084 0 - 1 [facility] Granulocytes # Bld Auto 0.78a9244/uL Normal 800924635959 0 - 0.3 [facility] Neutrophils # Bld Auto 4.03w2762/uL Normal 454765836820 2 - 7.6 [facility] Hct VFr Bld Auto 22.3% Below low normal 818493068891 38. 5 - 50 [facility] Lymphocytes/leuk NFr Bld Auto 26.7% Normal 658887111208 17 - 50 [facility] Lymphocytes # Bld Auto 2.14t7397/uL Normal 230835246496 0.6 - 3.7 [facility] nRBC/100 WBC Bld Auto-Rto 0% Normal 354567374687 0 - 1 [facility] RBC # Bld Auto 2.37M/uL Below low normal 949292044690 4 - 6 [facility] Neutrophils/leuk NFr Bld Auto 57.1% Normal 209181757225 39 - 72 [facility] Eosinophil/leuk NFr Bld Auto 3.6% Normal 225765831560 0 - 5 [facility] Granulocytes/leuk NFr Bld Auto 0.5% Normal 147537151915 0 - 1 [facility] WBC # Bld Auto 8.9v5871/uL Normal 177601051809 4 - 11 [facility] nRBC # Bld Auto 6f0867/uL Normal 063869295655 0 - 1 [facility] MCV RBC Auto 94.1fL Normal 000712641173 80 - 100 [facility] MCH RBC Qn Auto 28.7pg Normal [id number] 27 - 33 [facility] Platelet # Bld Auto 916c3447/uL Above high normal 0720303700 08 150 - 420 [facility] SPECIMEN EXPIRATION DATE AND TIME 11/29/2023 23:59 Normal [id number] [facility] ABO GROUPING O Normal 417838150294 [facility] ANTIBODY SCREEN NEG Normal [id number] [facility] RH TYPE POS Normal 172931113261 [facility] Phosphate SerPl-mCnc 3.6mg/dL Normal 521454905493 2.2 - 4.5 [facility] Magnesium SerPl-mCnc 1.9mg/dL Normal 473825615288 1.7 - 2.4 [facility] BUN SerPl-mCnc 20mg/dL Normal 450331829043 6 - 20 [facility] Creat SerPl-mCnc 0.5mg/dL Normal 694110753135 0.4 - 1.3 [facility] Anion Gap3 SerPl-sCnc 8 Normal 582677882958 7 - 17 [facility] GFR/BSA.pred SerPlBld XGL-ODB-GpSAbr 60mL/min/1.73m2 Normal 618772178091 - [facility] HCO3 SerPl-sCnc 28mmol/L Normal 516648692374 20 - 30 [facility] Glucose SerPl-mCnc 125mg/dL Above high normal 140490887379 70 - 100 [facility] BUN/Creat SerPl 40 Above high normal 201771160439 8 - 23 [facility] Chloride SerPl-sCnc 107mmol/L Normal 843635082314 98 - 10 7 [facility] Calcium SerPl-mCnc 8.8mg/dL Normal 510965215766 8.8 - 10.2 [facility] Sodium SerPl-sCnc 143mmol/L Normal 012147419424 136 - 144 [facility] Potassium SerPl-sCnc 3.8mmol/L Normal 358946568514 3.3 - 5.3 [facility] Hgb Bld-mCnc 6.8g/dL Below low normal 566501795938 13.2 - 17.1 [facility] Eosinophil # Bld Auto 0.71w1338/uL Normal 084693033015 0 - 1 [facility] MCHC RBC Auto-mCnc 30.2g/dL Below low normal 848428056064 3 1 - 36 [facility] PMV Bld Auto 11.3fL Normal 615979551057 8 - 12 [facility] Basophils/leuk NFr Bld Auto 0.5% Normal [id number] 0 - 1.4 [facility] Monocytes/leuk NFr Bld Auto 12.1% Above high normal 677465551996 4 - 12 [facility] RDW RBC Auto-Rto 14.2% Normal [id number] 11 - 15 [facility] Monocytes # Bld Auto 0.5e8930/uL Normal 638484516655 0 - 1 [facility] Basophils # Bld Auto 0.19f7081/uL Normal 167592170497 0 - 1 [facility] Granulocytes # Bld Auto 0.16s2158/uL Normal 989767457575 0 - 0.3 [facility] Neutrophils # Bld Auto 4.15z1848/uL Normal 239511017172 2 - 7.6 [facility] Hct VFr Bld Auto 22.5% Below low normal 413589674418 38. 5 - 50 [facility] Lymphocytes/leuk NFr Bld Auto 23.1% Normal 297232434470 17 - 50 [facility] Lymphocytes # Bld Auto 1.50t0558/uL Normal 805736036387 0.6 - 3.7 [facility] nRBC/100 WBC Bld Auto-Rto 0% Normal 747785195552 0 - 1 [facility] RBC # Bld Auto 2.36M/uL Below low normal 775604938350 4 - 6 [facility] Neutrophils/leuk NFr Bld Auto 60% Normal 675923616687 39 - 72 [facility] Eosinophil/leuk NFr Bld Auto 3.8% Normal 068573619766 0 - 5 [facility] Granulocytes/leuk NFr Bld Auto 0.5% Normal 620811128631 0 - 1 [facility] WBC # Bld Auto 7.5j2687/uL Normal 190987921955 4 - 11 [facility] nRBC # Bld Auto 3c5766/uL Normal 502818967841 0 - 1 [facility] MCV RBC Auto 95.3fL Normal 456923762919 80 - 100 [facility] MCH RBC Qn Auto 28.8pg Normal 337516451050 27 - 33 [facility] Platelet # Bld Auto 146a8127/uL Above high normal 1766712574 50 150 - 420 [facility] Path Interp Bld-Imp The low molecular weight heparin level is BELOW therapeutic range for both q12 \T\ q24 dosing. Normal 167051768964 [facility] Prealb SerPl Neph-mCnc 13.7mg/dL Below low normal 879301332518 20 - 40 [facility] CRP SerPl HS-mCnc 93.3mg/L Above high normal 570652031376 - [facility] Magnesium SerPl-mCnc 2mg/dL Normal 174627295530 1.7 - 2.4 [facility] Phosphate SerPl-mCnc 2.7mg/dL Normal 740227394942 2.2 - 4.5 [facility] BUN SerPl-mCnc 22mg/dL Above high normal 858473049924 6 - 20 [facility] Creat SerPl-mCnc 0.56mg/dL Normal 078561445676 0.4 - 1.3 [facility] Anion Gap3 SerPl-sCnc 9 Normal 429270432962 7 - 17 [facility] GFR/BSA.pred SerPlBld EZJ-WAK-TpATzo 60mL/min/1.73m2 Normal 297380324891 - [facility] HCO3 SerPl-sCnc 29mmol/L Normal 244992351728 20 - 30 [facility] Glucose SerPl-mCnc 96mg/dL Normal 585658349490 70 - 100 [facility] BUN/Creat SerPl 39.3 Above high normal 351338055362 8 - 23 [facility] Chloride SerPl-sCnc 108mmol/L Above high normal 645352951598 98 - 107 [facility] Calcium SerPl-mCnc 9.4mg/dL Normal 479750525035 8.8 - 10.2 [facility] Sodium SerPl-sCnc 146mmol/L Above high normal 335149199609 1 36 - 144 [facility] Potassium SerPl-sCnc 3.5mmol/L Normal 523222128982 3.3 - 5.3 [facility] Hgb Bld-mCnc 7.7g/dL Below low normal 571189805806 13.2 - 17.1 [facility] Eosinophil # Bld Auto 0.01q5598/uL Normal 888307385767 0 - 1 [facility] MCHC RBC Auto-mCnc 30.6g/dL Below low normal 853082734243 3 1 - 36 [facility] PMV Bld Auto 11.3fL Normal 037179264897 8 - 12 [facility] Basophils/leuk NFr Bld Auto 0.4% Normal 124613618528 0 - 1.4 [facility] Monocytes/leuk NFr Bld Auto 11.1% Normal 233779816365 4 - 12 [facility] RDW RBC Auto-Rto 14.3% Normal 596056686453 11 - 15 [facility] Monocytes # Bld Auto 1.72c9904/uL Above high normal 362592849975 0 - 1 [facility] Basophils # Bld Auto 0.28e1955/uL Normal 372710329776 0 - 1 [facility] Granulocytes # Bld Auto 0.11g8676/uL Normal 338674321942 0 - 0.3 [facility] Neutrophils # Bld Auto 7.46w4668/uL Above high normal 839325810502 2 - 7.6 [facility] Hct VFr Bld Auto 25.2% Below low normal 621109538605 38. 5 - 50 [facility] Lymphocytes/leuk NFr Bld Auto 16.2% Below low normal 079360790614 17 - 50 [facility] Lymphocytes # Bld Auto 1.40q4731/uL Normal [id number] 0.6 - 3.7 [facility] nRBC/100 WBC Bld Auto-Rto 0% Normal 527456797483 0 - 1 [facility] RBC # Bld Auto 2.64M/uL Below low normal 850413830491 4 - 6 [facility] Neutrophils/leuk NFr Bld Auto 71.1% Normal 413698890983 39 - 72 [facility] Eosinophil/leuk NFr Bld Auto 0.7% Normal 415947620754 0 - 5 [facility] Granulocytes/leuk NFr Bld Auto 0.5% Normal 017334018406 0 - 1 [facility] WBC # Bld Auto 36z4642/uL Normal 758693471379 4 - 11 [facility] nRBC # Bld Auto 0y9609/uL Normal 178644594422 0 - 1 [facility] MCV RBC Auto 95.5fL Normal 623663238290 80 - 100 [facility] MCH RBC Qn Auto 29.2pg Normal 116579523702 27 - 33 [facility] Platelet # Bld Auto 172v6292/uL Above high normal 3846664546 53 150 - 420 [facility] BUN SerPl-mCnc 22mg/dL Above high normal 572599557926 6 - 20 [facility] Creat SerPl-mCnc 0.61mg/dL Normal 149695075708 0.4 - 1.3 [facility] Anion Gap3 SerPl-sCnc 12 Normal 316510627857 7 - 17 [facility] GFR/BSA.pred SerPlBld XQL-RFE-KaMRsg 60mL/min/1.73m2 Normal 305838067341 - [facility] HCO3 SerPl-sCnc 27mmol/L Normal 640386032669 20 - 30 [facility] Glucose SerPl-mCnc 187mg/dL Above high normal 549870220199 70 - 100 [facility] BUN/Creat SerPl 36.1 Above high normal 679851061921 8 - 23 [facility] Chloride SerPl-sCnc 110mmol/L Above high normal 629813358879 98 - 107 [facility] Calcium SerPl-mCnc 9.1mg/dL Normal 339457713073 8.8 - 10.2 [facility] Sodium SerPl-sCnc 149mmol/L Above high normal 847255570298 1 36 - 144 [facility] Potassium SerPl-sCnc 3.5mmol/L Normal 681265396849 3.3 - 5.3 [facility] INR PPP 1.07 Normal 056105916968 0.86 - 1.12 [facility] Prothrombin time 11.8seconds Normal 649393227882 9.6 - 12.3 [facility] aPTT PPP 39.3seconds Above high normal 178288915246 23 - 31 .4 [facility] Phosphate SerPl-mCnc 2.3mg/dL Normal 283009123189 2.2 - 4.5 [facility] BUN SerPl-mCnc 19mg/dL Normal 200081541528 6 - 20 [facility] Creat SerPl-mCnc 0.53mg/dL Normal 319716258919 0.4 - 1.3 [facility] Anion Gap3 SerPl-sCnc 11 Normal 764514431470 7 - 17 [facility] GFR/BSA.pred SerPlBld Y[facility]-IRG-WnIGdw 60mL/min/1.73m2 Normal 375525790768 - [facility] HCO3 SerPl-sCnc 27mmol/L Normal 493970323748 20 - 30 [facility] Glucose SerPl-mCnc 155mg/dL Above high normal 216824085038 70 - 100 [facility] BUN/Creat SerPl 35.8 Above high normal 047336420377 8 - 23 [facility] Chloride SerPl-sCnc 110mmol/L Above high normal 437524556921 98 - 107 [facility] Calcium SerPl-mCnc 8.8mg/dL Normal 421296807755 8.8 - 10.2 [facility] Sodium SerPl-sCnc 148mmol/L Above high normal 660549077216 1 36 - 144 [facility] Potassium SerPl-sCnc 2.9mmol/L Below low normal 645607825318 3.3 - 5.3 [facility] Magnesium SerPl-mCnc 1.8mg/dL Normal 432898038497 1.7 - 2.4 [facility] Hgb Bld-mCnc 8.5g/dL Below low normal 791315751763 13.2 - 17.1 [facility] Eosinophil # Bld Auto 0o2416/uL Normal 346663131396 0 - 1 [facility] MCHC RBC Auto-mCnc 31.1g/dL Normal 619132340154 31 - 36 [facility] PMV Bld Auto 11.1fL Normal 770986258642 8 - 12 [facility] Basophils/leuk NFr Bld Auto 0.4% Normal 893050154150 0 - 1.4 [facility] Monocytes/leuk NFr Bld Auto 11.1% Normal 356863347058 4 - 12 [facility] RDW RBC Auto-Rto 14% Normal 006540920525 11 - 15 [facility] Monocytes # Bld Auto 1.85z5034/uL Above high normal 376637640141 0 - 1 [facility] Basophils # Bld Auto 0.52u1716/uL Normal 265481349766 0 - 1 [facility] Imm Granulocytes # Bld Auto 0.65h8185/uL Normal 892422277755 0 - 0.3 [facility] Neutrophils # Bld Auto 8.93n7303/uL Above high normal 181670675864 2 - 7.6 [facility] Hct VFr Bld Auto 27.3% Below low normal 234634552791 38. 5 - 50 [facility] Lymphocytes/leuk NFr Bld Auto 12.9% Below low normal 580181877899 17 - 50 [facility] Lymphocytes # Bld Auto 1.39i3481/uL Normal 573895955418 0.6 - 3.7 [facility] nRBC/100 WBC Bld Auto-Rto 0% Normal 405630309357 0 - 1 [facility] RBC # Bld Auto 2.91M/uL Below low normal 847535764108 4 - 6 [facility] Neutrophils/leuk NFr Bld Auto 75% Above high normal 168441911665 39 - 72 [facility] Eosinophil/leuk NFr Bld Auto 0% Normal 490653102951 0 - 5 [facility] Imm Granulocytes/leuk NFr Bld Auto 0.6% Normal 725537791630 0 - 1 [facility] WBC # Bld Auto 11.9s8462/uL Above high normal 254023646170 4 - 11 [facility] nRBC # Bld Auto 5x5589/uL Normal 294562238908 0 - 1 [facility] MCV RBC Auto 93.8fL Normal 326586848352 80 - 100 [facility] MCH RBC Qn Auto 29.2pg Normal 016059099613 27 - 33 [facility] Platelet # Bld Auto 907b3278/uL Above high normal 1481622630 38 150 - 420 [facility] Procalcitonin SerPl-mCnc 0.27ng/mL Above high normal 920567843350 - [facility] UFH PPP Manager Hair-aCnc 0.14u/mL Normal 766108773463 - [facility] Bacteria # Ur Auto Rare Normal 657717790268 - [facility] RBC #/area UrnS Auto 119/HPF Above high normal 839564066845 0 - 2 [facility] Squamous #/area UrnS Auto 1/HPF Normal 161650708605 0 - 5 [facility] WBC #/area UrnS Auto 13/HPF Above high normal 585087851869 0 - 5 [facility] Trans Cells #/area UrnS HPF 1/HPF Above high normal 692919747701 - [facility] Glucose Ur Strip.auto-mCnc Trace Abnormal 190777368472 - [facility] Color Ur Auto Yellow Normal 604970946120 - [facility] Hgb Ur Ql Strip.auto 1+ Abnormal 945733825957 - [facility] Ketones Ur Strip.auto-mCnc 1+ Abnormal 720194180244 - [facility] Prot Ur Strip.auto-mCnc 1+ Abnormal 813707961560 - [facility] Bilirub Ur Ql Strip.auto Negative Normal 980112281628 - [facility] WBC # Ur Strip 4+ Abnormal 803650271942 - [facility] Nitrite Ur Ql Strip.auto Negative Normal 104410136459 - [facility] Clarity Ur Refract.auto Cloudy Abnormal 687267016870 - [facility] pH Ur Strip.auto 6 Normal 850645161239 5.5 - 7.5 [facility] Urobilinogen Ur Strip-mCnc 2mg/dL Normal 005996943470 - [facility] Sp Gr Ur Refract.auto 1.029 Normal 521376723645 1.005 - 1.03 [facility] B[facility] SPECIMEN EXPIRATION DATE AND TIME 11/27/2023 23:59 Normal [id number] [facility] ABO GROUPING O Normal [id number] [facility] ANTIBODY SCREEN NEG Normal 715352362884 [facility] RH TYPE POS Normal [id number] [facility] Hgb Bld-mCnc 9.1g/dL Below low normal [id number] 13.2 - 17.1 [facility] Eosinophil # Bld Auto 0.16a7350/uL Normal [id number] 0 - 1 [facility] MCHC RBC Auto-mCnc 31.9g/dL Normal 489218927725 31 - 36 [facility] PMV Bld Auto 10.6fL Normal [id number] 8 - 12 [facility] Basophils/leuk NFr Bld Auto 0.4% Normal [id number] 0 - 1.4 [facility] Monocytes/leuk NFr Bld Auto 11.1% Normal [id number] 4 - 12 [facility] RDW RBC Auto-Rto 13.7% Normal [id number] 11 - 15 [facility] Monocytes # Bld Auto 1.3m5656/uL Above high normal [id number] 0 - 1 [facility] Basophils # Bld Auto 0.71u8261/uL Normal [id number] 0 - 1 [facility] Imm Granulocytes # Bld Auto 0.72g5838/uL Normal 924522422622 0 - 0.3 [facility] Neutrophils # Bld Auto 7.02r0925/uL Above high normal 253897045328 2 - 7.6 [facility] Hct VFr Bld Auto 28.5% Below low normal 105896990071 38. 5 - 50 [facility] Lymphocytes/leuk NFr Bld Auto 17.1% Normal [id number] 17 - 50 [facility] Lymphocytes # Bld Auto 1.99s3729/uL Normal [id number] 0.6 - 3.7 [facility] nRBC/100 WBC Bld Auto-Rto 0% Normal [id number] 0 - 1 [facility] RBC # Bld Auto 3.12M/uL Below low normal 112141839025 4 - 6 [facility] Neutrophils/leuk NFr Bld Auto 70.7% Normal [id number] 39 - 72 [facility] Eosinophil/leuk NFr Bld Auto 0.1% Normal [id number] 0 - 5 [facility] Imm Granulocytes/leuk NFr Bld Auto 0.6% Normal [id number] 0 - 1 [facility] WBC # Bld Auto 10.7l5472/uL Normal [id number] 4 - 11 [facility] nRBC # Bld Auto 6s4506/uL Normal 135119484840 0 - 1 [facility] MCV RBC Auto 91.3fL Normal 043236879216 80 - 100 [facility] MCH RBC Qn Auto 29.2pg Normal [id number] 27 - 33 [facility] Platelet # Bld Auto 821n9701/uL Above high normal 0177837214 06 150 - 420 [facility] BUN SerPl-mCnc 18mg/dL Normal [id number] 6 - 20 [facility] Creat SerPl-mCnc 0.6mg/dL Normal [id number] 0.4 - 1.3 [facility] Anion Gap3 SerPl-sCnc 11 Normal [id number] 7 - 17 [facility] GFR/BSA.pred SerPlBld XOD-IFP-GvZEpp 60mL/min/1.73m2 Normal [id number] - [facility] HCO3 SerPl-sCnc 27mmol/L Normal [id number] 20 - 30 [facility] Glucose SerPl-mCnc 181mg/dL Above high normal 120528057978 70 - 100 [facility] BUN/Creat SerPl 30 Above high normal [id number] 8 - 23 [facility] Chloride SerPl-sCnc 108mmol/L Above high normal 413309942863 98 - 107 [facility] Calcium SerPl-mCnc 9.6mg/dL Normal [id number] 8.8 - 10.2 [facility] Sodium SerPl-sCnc 146mmol/L Above high normal 602727923773 1 36 - 144 [facility] Potassium SerPl-sCnc 3.1mmol/L Below low normal 903228907772 3.3 - 5.3 [facility] Phosphate SerPl-mCnc 2.2mg/dL Normal [id number] 2.2 - 4.5 [facility] Magnesium SerPl-mCnc 1.8mg/dL Normal [id number] 1.7 - 2.4 [facility] SPECIMEN EXPIRATION DATE AND TIME 11/26/2023 23:59 Normal [id number] [facility] ABO GROUPING O Normal [id number] [facility] ANTIBODY SCREEN NEG Normal 558190164098 [facility] RH TYPE POS Normal 995885622710 [facility] VENT MODE (ARTERIAL BG [facility] QUESTION) PSV Normal 627434831558 [facility] OXYGEN MODE (ARTERIAL BG [facility] QUESTION) Ventilator Normal [id number] [facility] SP02 (ARTERIAL BG [facility]ING[facility] QUESTION) 97% Normal 998616751517 [facility] pCO2 BldA 50mmHg Above high normal 999871904748 32 - 48 [facility] HCO3 std BldA-sCnc 31.7mmol/L Above high normal 326725783532 21 - 28 [facility] FIO2 (ARTERIAL BG [place] QUESTION) 40% Normal 204040736592 [facility] pH BldA 7.42units Normal 681372937370 7.35 - 7.45 [facility] TEMPERATURE (ARTERIAL BG DOMINGO QUESTION) 99.5Fahrenheit Normal 343145787403 [facility] pO2 BldA 140mmHg Above high normal 709143330875 83 - 108 [facility] SaO2 % BldA 99% Above high normal 146460781719 94 - 98 [facility] END TIDAL CO2/TCOM (ARTERIAL BG [place]INGO QUESTION) 48mmol/L Normal [id number] [facility] ACTUAL RESPIRATORY RATE (ARTERIAL BG [facility]ING[facility] QUESTION) 14breaths/min Normal 726039017641 [facility] Base excess std BldA Calc-sCnc 7mmol/L Above high normal 361237916736 - [facility] VENT SETTINGS (ARTERIAL BG [facility]ING[facility] QUESTION) PEEP Normal [id number] [facility] OXYGEN MODE (ARTERIAL BG DOMINGO QUESTION) Venturi Mask Normal [facility] SP02 (ARTERIAL BG DOMINGO QUESTION) 97% Normal 671120878812 [facility] pCO2 BldA 30mmHg Below low normal 911007868629 32 - 48 [facility] HCO3 std BldA-sCnc 30mmol/L Above high normal 799312947222 21 - 28 [facility] FIO2 (ARTERIAL BG DOMINGO QUESTION) 40% Normal [id number] [facility] pH BldA 7.6units Critically high 175735357736 7.35 - 7.45 [facility] TEMPERATURE (ARTERIAL BG DOMINGO QUESTION) 99.5Fahrenheit Normal 642085096334 [facility] pO2 BldA 134mmHg Above high normal 241369591461 83 - 108 [facility] SaO2 % BldA 99% Above high normal 127319958298 94 - 98 [facility] END TIDAL CO2/TCOM (ARTERIAL BG DOMINGO QUESTION) 30mmol/L Normal [facility] ACTUAL RESPIRATORY RATE (ARTERIAL BG DOMINGO QUESTION) 18breaths/min Normal [facility] Base excess std BldA Calc-sCnc 8mmol/L Above high normal - [facility] OXYGEN MODE (ARTERIAL BG DOMINGO QUESTION) Ventilator Normal [facility] SP02 (ARTERIAL BG DOMINGO QUESTION) 100% Normal [facility] pCO2 BldA 44mmHg Normal 32 - 48 [facility] HCO3 std BldA-sCnc 29.6mmol/L Above high normal 21 - 28 [facility] BKR FIO2 (ARTERIAL [facility] [place] QUESTION) 100% Normal [facility] pH BldA 7.44units Normal 7.35 - 7.45 [facility] TEMPERATURE (ARTERIAL [facility] [place] QUESTION) 99Fahrenheit Normal [facility] pO2 BldA 216mmHg Above high normal 83 - 108 [facility] SaO2 % BldA 100% Above high normal 94 - 98 [facility] BKR END TIDAL CO2/TCOM (ARTER[facility] [place] QUESTION) 43mmol/L Normal [facility] ACTUAL RESPIRATORY RATE (ARTERIAL [facility] [place] QUESTION) 23breaths/min Normal [facility] Base excess std BldA Calc-sCnc 5mmol/L Above high normal - [facility] Trigl SerPl-mCnc 147mg/dL Normal [id number] - [facility] B[facility] OXYGEN MODE (ARTER[facility] [place] QUESTION) High Flow Nasal Cannula Normal [facility] SP02 (ARTERIAL BG [place] QUESTION) 91% Normal [facility] pCO2 BldA 65mmHg Critically high 32 - 48 [facility] HCO3 std BldA-sCnc 32.2mmol/L Above high normal 21 - 28 [facility] B[facility] FIO2 (ARTERIAL [facility] [place] QUESTION) 50% Normal [facility] LITER FLOW (ARTERIAL BG [place] QUESTION) 20L/min Normal [facility] pH BldA 7.32units Below low normal 7.35 - 7.45 [facility] BKR TEMPERATURE (ARTERIAL BG [place] QUESTION) 100.9Fahrenheit Normal [facility] pO2 BldA 94mmHg Normal 83 - 108 [facility] SaO2 % BldA 95% Normal 94 - [address] [address] BKR ACTUAL RESPIRATORY RATE (ARTERIAL BG [place] QUESTION) 28breaths/min Normal [facility] Base excess std BldA Calc-sCnc 6mmol/L Above high normal - [facility] Phosphate SerPl-mCnc 3.7mg/dL Normal [id number] 2.2 - 4.5 [facility] Magnesium SerPl-mCnc 2mg/dL Normal 1.7 - 2.4 [facility] BUN SerPl-mCnc 23mg/dL Above high normal 210154490515 6 - 20 [facility] Creat SerPl-mCnc 0.57mg/dL Normal 0.4 - 1.3 [facility] Anion Gap3 SerPl-sCnc 10 Normal 460927471290 7 - 17 [facility] GFR/BSA.pred SerPlBld BCK-QBF-VtRBkx 60mL/min/1.73m2 Normal - [facility] HCO3 SerPl-sCnc 30mmol/L Normal [id number] 20 - 30 [facility] Glucose SerPl-mCnc 199mg/dL Above high normal 550700824509 70 - 100 [facility] BUN/Creat SerPl 40.4 Above high normal 599858199092 8 - 23 [facility] Chloride SerPl-sCnc 105mmol/L Normal 479028492888 98 - 10 7 [facility] Calcium SerPl-mCnc 9.7mg/dL Normal 243352536073 8.8 - 10.2 [facility] Sodium SerPl-sCnc 145mmol/L Above high normal 167048831046 1 36 - 144 [facility] Potassium SerPl-sCnc 4mmol/L Normal 612023304321 3.3 - 5.3 [facility] Hgb Bld-mCnc 9.5g/dL Below low normal 643352177138 13.2 - 17.1 [facility] Eosinophil # Bld Auto 8a6113/uL Normal 660221229881 0 - 1 [facility] MCHC RBC Auto-mCnc 30g/dL Below low normal 572250352216 3 1 - 36 [facility] PMV Bld Auto 10.6fL Normal 111224420344 8 - 12 [facility] Basophils/leuk NFr Bld Auto 0.4% Normal 631760904768 0 - 1.4 [facility] Monocytes/leuk NFr Bld Auto 11.6% Normal [id number] 4 - 12 [facility] RDW RBC Auto-Rto 13.9% Normal 399813916012 11 - 15 [facility] Monocytes # Bld Auto 1.87f7426/uL Above high normal 561408953580 0 - 1 [facility] Basophils # Bld Auto 0.74g1316/uL Normal [id number] 0 - 1 [facility] Imm Granulocytes # Bld Auto 0.11e1576/uL Normal 674390435527 0 - 0.3 [facility] Neutrophils # Bld Auto 7.9x8700/uL Above high normal 005513943254 2 - 7.6 [facility] Hct VFr Bld Auto 31.7% Below low normal 848587811748 38. 5 - 50 [facility] Lymphocytes/leuk NFr Bld Auto 16.4% Below low normal 596245758092 17 - 50 [facility] Lymphocytes # Bld Auto 1.50k7867/uL Normal 898256942482 0.6 - 3.7 [facility] nRBC/100 WBC Bld Auto-Rto 0% Normal 905126080973 0 - 1 [facility] RBC # Bld Auto 3.32M/uL Below low normal 818113208906 4 - 6 [facility] Neutrophils/leuk NFr Bld Auto 70.8% Normal 355398388775 39 - 72 [facility] Eosinophil/leuk NFr Bld Auto 0% Normal 290500207922 0 - 5 [facility] Imm Granulocytes/leuk NFr Bld Auto 0.8% Normal 469612306096 0 - 1 [facility] WBC # Bld Auto 11.9g7493/uL Above high normal 254836176581 4 - 11 [facility] nRBC # Bld Auto 2i9078/uL Normal 392395518498 0 - 1 [facility] MCV RBC Auto 95.5fL Normal 740085616326 80 - 100 [facility] MCH RBC Qn Auto 28.6pg Normal [id number] 27 - 33 [facility] Platelet # Bld Auto 578z7548/uL Above high normal 5889599340 11 150 - 420 [facility] BKR OXYGEN MODE (ARTERIAL BG [place] QUESTION) High Flow Nasal Cannula Normal [id number] [facility] SP02 (ARTERIAL BG [place] QUESTION) 96% Normal 051540563048 [facility] pCO2 BldA 50mmHg Above high normal 436156570363 32 - 48 [facility] HCO3 std BldA-sCnc 30.7mmol/L Above high normal 631665540084 21 - 28 [facility] B[facility] FIO2 (ARTERIAL BG [place] QUESTION) 50% Normal 992638703127 [facility] B[facility] LITER FLOW (ARTERIAL BG [place] QUESTION) 20L/min Normal 199092875530 [facility] pH BldA 7.41units Normal 782964011210 7.35 - 7.45 [facility] BKR TEMPERATURE (ARTERIAL BG [place] QUESTION) 100.8Fahrenheit Normal 280369713628 [facility] pO2 BldA 121mmHg Above high normal 955851821293 83 - 108 [facility] SaO2 % BldA 98% Normal 94 - [address] Base excess std BldA Calc-sCnc 6mmol/L Above high normal 073670694443 - [facility] BKR OXYGEN MODE (ARTERIAL BG [place] QUESTION) High Flow Nasal Cannula Normal [facility] BKR SP02 (ARTERIAL BG [place] QUESTION) 98% Normal [facility] pCO2 BldA 43mmHg Normal 32 - 48 [facility] HCO3 std BldA-sCnc 29.7mmol/L Above high normal 21 - 28 [facility] BKR FIO2 (ARTERIAL BG [place] QUESTION) 40% Normal [facility] pH BldA 7.46units Above high normal 7.35 - 7.45 [facility] BKR TEMPERATURE (ARTERIAL BG [place] QUESTION) 100.9Fahrenheit Normal [facility] pO2 BldA 163mmHg Above high normal 83 - 108 [facility] SaO2 % BldA 99% Above high normal 94 - 98 [facility] BKR ACTUAL RESPIRATORY RATE (ARTERIAL BG [place] QUESTION) 17breaths/min Normal [facility] Base excess std BldA Calc-sCnc 6mmol/L Above high normal - [facility] Phosphate SerPl-mCnc 3.4mg/dL Normal 734750640005 2.2 - 4.5 [facility] BUN SerPl-mCnc 27mg/dL Above high normal 145056203534 6 - 20 [facility] Creat SerPl-mCnc 0.61mg/dL Normal 889024083418 0.4 - 1.3 [facility] Anion Gap3 SerPl-sCnc 9 Normal 982062285272 7 - 17 [facility] GFR/BSA.pred SerPlBld SKM-LSS-FiDTna 60mL/min/1.73m2 Normal 485242187114 - [facility] HCO3 SerPl-sCnc 29mmol/L Normal 175771361227 20 - 30 [facility] Glucose SerPl-mCnc 129mg/dL Above high normal 722070021707 70 - 100 [facility] BUN/Creat SerPl 44.3 Above high normal 816423410923 8 - 23 [facility] Chloride SerPl-sCnc 106mmol/L Normal 855511934494 98 - 10 7 [facility] Calcium SerPl-mCnc 9.6mg/dL Normal 701171810420 8.8 - 10.2 [facility] Sodium SerPl-sCnc 144mmol/L Normal 904282011675 136 - 144 [facility] Potassium SerPl-sCnc 3.7mmol/L Normal 793043987384 3.3 - 5.3 [facility] Magnesium SerPl-mCnc 1.9mg/dL Normal 480790845021 1.7 - 2.4 [facility] Hgb Bld-mCnc 9.1g/dL Below low normal 432123896618 13.2 - 17.1 [facility] Eosinophil # Bld Auto 0.31z0644/uL Normal 922932426787 0 - 1 [facility] MCHC RBC Auto-mCnc 31.6g/dL Normal 136332671836 31 - 36 [facility] PMV Bld Auto 10.7fL Normal 518726774863 8 - 12 [facility] Basophils/leuk NFr Bld Auto 0.3% Normal 713852026805 0 - 1.4 [facility] Monocytes/leuk NFr Bld Auto 9.3% Normal [id number] 4 - 12 [facility] RDW RBC Auto-Rto 13.8% Normal [id number] 11 - 15 [facility] Monocytes # Bld Auto 0.98d8834/uL Normal 185464933588 0 - 1 [facility] Basophils # Bld Auto 0.56b7059/uL Normal 210082557541 0 - 1 [facility] Imm Granulocytes # Bld Auto 0.18j9204/uL Normal 346309835684 0 - 0.3 [facility] Neutrophils # Bld Auto 7.07a6707/uL Normal 381340713293 2 - 7.6 [facility] Hct VFr Bld Auto 28.8% Below low normal 422317936179 38. 5 - 50 [facility] Lymphocytes/leuk NFr Bld Auto 20.8% Normal 301576689074 17 - 50 [facility] Lymphocytes # Bld Auto 2.32b3699/uL Normal 205858462219 0.6 - 3.7 [facility] nRBC/100 WBC Bld Auto-Rto 0% Normal 609934782557 0 - 1 [facility] RBC # Bld Auto 3.08M/uL Below low normal 458672054048 4 - 6 [facility] Neutrophils/leuk NFr Bld Auto 68.3% Normal 848865071256 39 - 72 [facility] Eosinophil/leuk NFr Bld Auto 0.3% Normal 791782872238 0 - 5 [facility] Imm Granulocytes/leuk NFr Bld Auto 1% Normal 242073508516 0 - 1 [facility] WBC # Bld Auto 10.3u2554/uL Normal 343411033699 4 - 11 [facility] nRBC # Bld Auto 0n8780/uL Normal 127644192464 0 - 1 [facility] MCV RBC Auto 93.5fL Normal 941548176431 80 - 100 [facility] MCH RBC Qn Auto 29.5pg Normal 888944665315 27 - 33 [facility] Platelet # Bld Auto 754d8133/uL Above high normal 0040691501 58 150 - 420 [facility] SPECIMEN EXPIRATION DATE AND TIME 11/23/2023 23:59 Normal 178345470351 [facility] ABO GROUPING O Normal 836177724478 [facility] ANTIBODY SCREEN NEG Normal 292967073300 [facility] RH TYPE POS Normal 690660505626 [facility] BUN SerPl-mCnc 25mg/dL Above high normal 634191308253 6 - 20 [facility] Creat SerPl-mCnc 0.66mg/dL Normal 807193765003 0.4 - 1.3 [facility] Anion Gap3 SerPl-sCnc 10 Normal 771578514405 7 - 17 [facility] GFR/BSA.pred SerPlBld WNN-XUU-QmNItm 60mL/min/1.73m2 Normal 291350072723 - [facility] HCO3 SerPl-sCnc 28mmol/L Normal 477847921686 20 - 30 [facility] Glucose SerPl-mCnc 129mg/dL Above high normal 964426416204 70 - 100 [facility] BUN/Creat SerPl 37.9 Above high normal 365086876257 8 - 23 [facility] Chloride SerPl-sCnc 105mmol/L Normal 158095651528 98 - 10 7 [facility] Calcium SerPl-mCnc 9.8mg/dL Normal 415679967308 8.8 - 10.2 [facility] Sodium SerPl-sCnc 143mmol/L Normal 929821472770 136 - 144 [facility] Potassium SerPl-sCnc 3.9mmol/L Normal 307324349408 3.3 - 5.3 [facility] Magnesium SerPl-mCnc 2.1mg/dL Normal 269638626162 1.7 - 2.4 [facility] Phosphate SerPl-mCnc 3.8mg/dL Normal 296605065419 2.2 - 4.5 [facility] Hgb Bld-mCnc 9.2g/dL Below low normal 465521197157 13.2 - 17.1 [facility] Eosinophil # Bld Auto 0.47a5862/uL Normal 776344027814 0 - 1 [facility] MCHC RBC Auto-mCnc 31.3g/dL Normal 912399424508 31 - 36 [facility] PMV Bld Auto 10.5fL Normal 228530405541 8 - 12 [facility] Basophils/leuk NFr Bld Auto 0.6% Normal 746122945519 0 - 1.4 [facility] Monocytes/leuk NFr Bld Auto 8.5% Normal 132477232898 4 - 12 [facility] RDW RBC Auto-Rto 13.8% Normal 391112910707 11 - 15 [facility] Monocytes # Bld Auto 0.73i8432/uL Normal 967470774254 0 - 1 [facility] Basophils # Bld Auto 0.81y9612/uL Normal 637625803901 0 - 1 [facility] Imm Granulocytes # Bld Auto 0.12h8495/uL Normal 563964529163 0 - 0.3 [facility] Neutrophils # Bld Auto 6.7s0090/uL Normal 568445544284 2 - 7.6 [facility] Hct VFr Bld Auto 29.4% Below low normal 603120610400 38. 5 - 50 [facility] Lymphocytes/leuk NFr Bld Auto 17.3% Normal 628847407167 17 - 50 [facility] Lymphocytes # Bld Auto 1.30v7061/uL Normal 282063558069 0.6 - 3.7 [facility] nRBC/100 WBC Bld Auto-Rto 0% Normal 959328790430 0 - 1 [facility] RBC # Bld Auto 3.1M/uL Below low normal 355851210250 4 - 6 [facility] Neutrophils/leuk NFr Bld Auto 70.9% Normal 365050756846 39 - 72 [facility] Eosinophil/leuk NFr Bld Auto 1% Normal 146766143382 0 - 5 [facility] Imm Granulocytes/leuk NFr Bld Auto 1.7% Above high normal 407117946029 0 - 1 [facility] WBC # Bld Auto 0y1290/uL Normal 272572515524 4 - 11 [facility] nRBC # Bld Auto 2e3006/uL Normal 543735572886 0 - 1 [facility] MCV RBC Auto 94.8fL Normal 850805799628 80 - 100 [facility] MCH RBC Qn Auto 29.7pg Normal [id number] 27 - 33 [facility] Platelet # Bld Auto 657h1068/uL Above high normal 2726417525 31 150 - 420 [facility] Path Interp Bld-Imp The low molecular weight heparin level is BELOW therapeutic range for both q12 \T\ q24 dosing. Normal 510203181617 [facility] BUN SerPl-mCnc 24mg/dL Above high normal 026081346688 6 - 20 [facility] Creat SerPl-mCnc 0.65mg/dL Normal 206447494950 0.4 - 1.3 [facility] Anion Gap3 SerPl-sCnc 12 Normal 399972148518 7 - 17 [facility] GFR/BSA.pred SerPlBld EEN-XIA-GdRKeu 60mL/min/1.73m2 Normal 549302497688 - [facility] HCO3 SerPl-sCnc 27mmol/L Normal 252968011912 20 - 30 [facility] Glucose SerPl-mCnc 150mg/dL Above high normal 068474425086 70 - 100 [facility] BUN/Creat SerPl 36.9 Above high normal 094617448691 8 - 23 [facility] Chloride SerPl-sCnc 103mmol/L Normal 886993457887 98 - 10 7 [facility] Calcium SerPl-mCnc 9.6mg/dL Normal 049783561469 8.8 - 10.2 [facility] Sodium SerPl-sCnc 142mmol/L Normal 010384633140 136 - 144 [facility] Potassium SerPl-sCnc 3.9mmol/L Normal 685011487574 3.3 - 5.3 [facility] UFH PPP Manager Hair-aCnc 0.12u/mL Normal 650873425944 - [facility] Hgb Bld-mCnc 8.6g/dL Below low normal 146008852146 13.2 - 17.1 [facility] Eosinophil # Bld Auto 0.94x2750/uL Normal 985037524318 0 - 1 [facility] MCHC RBC Auto-mCnc 31.4g/dL Normal 075249788509 31 - 36 [facility] PMV Bld Auto 10.8fL Normal 902928395223 8 - 12 [facility] Basophils/leuk NFr Bld Auto 0.6% Normal 978669245674 0 - 1.4 [facility] Monocytes/leuk NFr Bld Auto 8% Normal 774226841463 4 - 12 [facility] RDW RBC Auto-Rto 13.6% Normal 148766528623 11 - 15 [facility] Monocytes # Bld Auto 0.50u7261/uL Normal 071501494406 0 - 1 [facility] Basophils # Bld Auto 0.44i8154/uL Normal 426463717775 0 - 1 [facility] Imm Granulocytes # Bld Auto 0.03d3095/uL Normal 737372753890 0 - 0.3 [facility] Neutrophils # Bld Auto 5.24h4681/uL Normal 860572211861 2 - 7.6 [facility] Hct VFr Bld Auto 27.4% Below low normal 568431025183 38. 5 - 50 [facility] Lymphocytes/leuk NFr Bld Auto 19.6% Normal 044074076184 17 - 50 [facility] Lymphocytes # Bld Auto 1.01l8930/uL Normal 693746097543 0.6 - 3.7 [facility] nRBC/100 WBC Bld Auto-Rto 0% Normal [id number] 0 - 1 [facility] RBC # Bld Auto 2.85M/uL Below low normal 490344267632 4 - 6 [facility] Neutrophils/leuk NFr Bld Auto 66.9% Normal 299855154969 39 - 72 [facility] Eosinophil/leuk NFr Bld Auto 2.7% Normal 800468133199 0 - 5 [facility] Imm Granulocytes/leuk NFr Bld Auto 2.2% Above high normal 653908006240 0 - 1 [facility] WBC # Bld Auto 8.0b6089/uL Normal 652858636890 4 - 11 [facility] nRBC # Bld Auto 5p2862/uL Normal 702642990668 0 - 1 [facility] MCV RBC Auto 96.1fL Normal 183231485667 80 - 100 [facility] MCH RBC Qn Auto 30.2pg Normal 037007153411 27 - 33 [facility] Platelet # Bld Auto 448r4599/uL Above high normal 9392898374 56 150 - 420 [facility] Phosphate SerPl-mCnc 4mg/dL Normal 300062110461 2.2 - 4.5 [facility] Magnesium SerPl-mCnc 2.1mg/dL Normal 334127788043 1.7 - 2.4 [facility] BUN SerPl-mCnc 22mg/dL Above high normal 966451571598 6 - 20 [facility] Creat SerPl-mCnc 0.62mg/dL Normal 458778047867 0.4 - 1.3 [facility] Anion Gap3 SerPl-sCnc 10 Normal 843939539947 7 - 17 [facility] GFR/BSA.pred SerPlBld WVS-ODI-PoYXgh 60mL/min/1.73m2 Normal 104535607687 - [facility] HCO3 SerPl-sCnc 29mmol/L Normal 536480872687 20 - 30 [facility] Glucose SerPl-mCnc 135mg/dL Above high normal 423347998195 70 - 100 [facility] BUN/Creat SerPl 35.5 Above high normal 406815785864 8 - 23 [facility] Chloride SerPl-sCnc 103mmol/L Normal 329325165603 98 - 10 7 [facility] Calcium SerPl-mCnc 9.3mg/dL Normal 890615508588 8.8 - 10.2 [facility] Sodium SerPl-sCnc 142mmol/L Normal 822683118119 136 - 144 [facility] Potassium SerPl-sCnc 4mmol/L Normal 159342255916 3.3 - 5.3 [facility] Phosphate SerPl-mCnc 3.7mg/dL Normal 031305325707 2.2 - 4.5 [facility] BUN SerPl-mCnc 22mg/dL Above high normal 445274363845 6 - 20 [facility] Creat SerPl-mCnc 0.59mg/dL Normal 670580286747 0.4 - 1.3 [facility] Anion Gap3 SerPl-sCnc 11 Normal 423560371925 7 - 17 [facility] GFR/BSA.pred SerPlBld RHG-RVX-VbIAra 60mL/min/1.73m2 Normal 741061087586 - [facility] HCO3 SerPl-sCnc 29mmol/L Normal 503893429606 20 - 30 [facility] Glucose SerPl-mCnc 143mg/dL Above high normal 952505266595 70 - 100 [facility] BUN/Creat SerPl 37.3 Above high normal 995676606079 8 - 23 [facility] Chloride SerPl-sCnc 102mmol/L Normal 290473484766 98 - 10 7 [facility] Calcium SerPl-mCnc 9.4mg/dL Normal 548807793884 8.8 - 10.2 [facility] Sodium SerPl-sCnc 142mmol/L Normal 873083106416 136 - 144 [facility] Potassium SerPl-sCnc 3.8mmol/L Normal 977761349036 3.3 - 5.3 [facility] Magnesium SerPl-mCnc 2mg/dL Normal 467820039175 1.7 - 2.4 [facility] Prealb SerPl Neph-mCnc 14.8mg/dL Below low normal 889045507308 20 - 40 [facility] CRP SerPl HS-mCnc 58mg/L Above high normal 140459225903 - [facility] INR PPP 1 Normal 224826525248 0.86 - 1.12 [facility] Prothrombin time 11.1seconds Normal 843376221108 9.6 - 12.3 [facility] aPTT PPP 39.3seconds Above high normal 890205022027 23 - 31 .4 [facility] BUN SerPl-mCnc 21mg/dL Above high normal 315198000394 6 - 20 [facility] Creat SerPl-mCnc 0.59mg/dL Normal 152070704915 0.4 - 1.3 [facility] Anion Gap3 SerPl-sCnc 9 Normal 656714922616 7 - 17 [facility] GFR/BSA.pred SerPlBld ZJE-FWF-VkNYzu 60mL/min/1.73m2 Normal 447201803139 - [facility] HCO3 SerPl-sCnc 32mmol/L Above high normal 153150478021 20 - 30 [facility] Glucose SerPl-mCnc 150mg/dL Above high normal 681495568067 70 - 100 [facility] BUN/Creat SerPl 35.6 Above high normal 578838554811 8 - 23 [facility] Chloride SerPl-sCnc 100mmol/L Normal 938359775465 98 - 10 7 [facility] Calcium SerPl-mCnc 9.2mg/dL Normal 453569419612 8.8 - 10.2 [facility] Sodium SerPl-sCnc 141mmol/L Normal 465464175706 136 - 144 [facility] Potassium SerPl-sCnc 3.9mmol/L Normal [id number] 3.3 - 5.3 [facility] Phosphate SerPl-mCnc 3mg/dL Normal 639845972407 2.2 - 4.5 [facility] Magnesium SerPl-mCnc 2mg/dL Normal 433354824446 1.7 - 2.4 [facility] Hgb Bld-mCnc 8.3g/dL Below low normal 507586577286 13.2 - 17.1 [facility] Eosinophil # Bld Auto 0.9w5783/uL Normal 623714130492 0 - 1 [facility] MCHC RBC Auto-mCnc 31.8g/dL Normal 682337654498 31 - 36 [facility] PMV Bld Auto 10.5fL Normal 687711283546 8 - 12 [facility] Basophils/leuk NFr Bld Auto 0.4% Normal 523429340599 0 - 1.4 [facility] Monocytes/leuk NFr Bld Auto 8.2% Normal 113834158896 4 - 12 [facility] RDW RBC Auto-Rto 13.3% Normal 448388244711 11 - 15 [facility] Monocytes # Bld Auto 0.13j4548/uL Normal 895243351151 0 - 1 [facility] Basophils # Bld Auto 0.07e6268/uL Normal 069695421266 0 - 1 [facility] Imm Granulocytes # Bld Auto 0.71i5474/uL Normal 522917691680 0 - 0.3 [facility] Neutrophils # Bld Auto 4.67r9718/uL Normal 041263313719 2 - 7.6 [facility] Hct VFr Bld Auto 26.1% Below low normal 138883488598 38. 5 - 50 [facility] Lymphocytes/leuk NFr Bld Auto 23.9% Normal [id number] 17 - 50 [facility] Lymphocytes # Bld Auto 1.8d4764/uL Normal 424821828285 0.6 - 3.7 [facility] nRBC/100 WBC Bld Auto-Rto 0% Normal 391438804885 0 - 1 [facility] RBC # Bld Auto 2.77M/uL Below low normal 284492891903 4 - 6 [facility] Neutrophils/leuk NFr Bld Auto 62.5% Normal 675335992931 39 - 72 [facility] Eosinophil/leuk NFr Bld Auto 2.7% Normal 247323460203 0 - 5 [facility] Imm Granulocytes/leuk NFr Bld Auto 2.3% Above high normal 970829534083 0 - 1 [facility] WBC # Bld Auto 7.5d9090/uL Normal [id number] 4 - 11 [facility] nRBC # Bld Auto 4u0133/uL Normal 958880461526 0 - 1 [facility] MCV RBC Auto 94.2fL Normal 434203255899 80 - 100 [facility] MCH RBC Qn Auto 30pg Normal 125079210566 27 - 33 [facility] Platelet # Bld Auto 601v3459/uL Above high normal 6503590086 36 150 - 420 [facility] B[facility] SPECIMEN EXPIRATION DATE AND TIME 11/21/2023 23:59 Normal 304425853714 [facility] ABO GROUPING O Normal 008030854960 [facility] ANTIBODY SCREEN NEG Normal 398154192766 [facility] RH TYPE POS Normal 429067790686 [facility] Phosphate SerPl-mCnc 2.9mg/dL Normal 782956899688 2.2 - 4.5 [facility] BUN SerPl-mCnc 19mg/dL Normal 056110955728 6 - 20 [facility] Creat SerPl-mCnc 0.61mg/dL Normal 779395668310 0.4 - 1.3 [facility] Anion Gap3 SerPl-sCnc 7 Normal 554200252758 7 - 17 [facility] GFR/BSA.pred SerPlBld EEW-EQQ-EmJMqp 60mL/min/1.73m2 Normal 567786137809 - [facility] HCO3 SerPl-sCnc 34mmol/L Above high normal 750960595155 20 - 30 [facility] Glucose SerPl-mCnc 151mg/dL Above high normal 533541844580 70 - 100 [facility] BUN/Creat SerPl 31.1 Above high normal 021900311964 8 - 23 [facility] Chloride SerPl-sCnc 99mmol/L Normal 697625860612 98 - 10 7 [facility] Calcium SerPl-mCnc 9.2mg/dL Normal 869614147014 8.8 - 10.2 [facility] Sodium SerPl-sCnc 140mmol/L Normal [id number] 136 - 144 [facility] Potassium SerPl-sCnc 4.1mmol/L Normal 048252432985 3.3 - 5.3 [facility] Magnesium SerPl-mCnc 1.9mg/dL Normal [id number] 1.7 - 2.4 [facility] INR PPP 1 Normal [id number] 0.86 - 1.12 [facility] Prothrombin time 11.1seconds Normal [id number] 9.6 - 12.3 [facility] aPTT PPP 39seconds Above high normal [id number] 23 - 31.4 [facility] Hgb Bld-mCnc 8g/dL Below low normal 502452960151 13.2 - 17.1 [facility] Eosinophil # Bld Auto 0.22c5929/uL Normal [id number] 0 - 1 [facility] MCHC RBC Auto-mCnc 31g/dL Normal [id number] 31 - 36 [facility] PMV Bld Auto 10.7fL Normal [id number] 8 - 12 [facility] Basophils/leuk NFr Bld Auto 0.5% Normal 912154161425 0 - 1.4 [facility] Monocytes/leuk NFr Bld Auto 7.3% Normal [id number] 4 - 12 [facility] RDW RBC Auto-Rto 13.3% Normal 279688479942 11 - 15 [facility] Monocytes # Bld Auto 0.61u8106/uL Normal 494055473314 0 - 1 [facility] Basophils # Bld Auto 0.95k5902/uL Normal 403630408551 0 - 1 [facility] Imm Granulocytes # Bld Auto 0.38i7683/uL Normal [id number] 0 - 0.3 [facility] Neutrophils # Bld Auto 4.7y0649/uL Normal [id number] 2 - 7.6 [facility] Hct VFr Bld Auto 25.8% Below low normal 151710117822 38. 5 - 50 [facility] Lymphocytes/leuk NFr Bld Auto 21.8% Normal [id number] 17 - 50 [facility] Lymphocytes # Bld Auto 1.01m8770/uL Normal [id number] 0.6 - 3.7 [facility] nRBC/100 WBC Bld Auto-Rto 0% Normal [id number] 0 - 1 [facility] RBC # Bld Auto 2.7M/uL Below low normal 193635299778 4 - 6 [facility] Neutrophils/leuk NFr Bld Auto 61.8% Normal 136491639477 39 - 72 [facility] Eosinophil/leuk NFr Bld Auto 7.7% Above high normal [id number] 0 - 5 [facility] Imm Granulocytes/leuk NFr Bld Auto 0.9% Normal 0 - 1 [facility] WBC # Bld Auto 6.6i5024/uL Normal [id number] 4 - 11 [facility] nRBC # Bld Auto 3j0032/uL Normal [id number] 0 - 1 [facility] MCV RBC Auto 95.6fL Normal [id number] 80 - 100 [facility] MCH RBC Qn Auto 29.6pg Normal [id number] 27 - 33 [facility] Platelet # Bld Auto 141v5138/uL Above high normal 7608485595 25 150 - 420 [facility] Magnesium SerPl-mCnc 1.9mg/dL Normal 136509985881 1.7 - 2.4 [facility] Phosphate SerPl-mCnc 2.7mg/dL Normal 935609041682 2.2 - 4.5 [facility] BUN SerPl-mCnc 18mg/dL Normal [id number] 6 - 20 [facility] Creat SerPl-mCnc 0.6mg/dL Normal [id number] 0.4 - 1.3 [facility] Anion Gap3 SerPl-sCnc 9 Normal [id number] 7 - 17 [facility] GFR/BSA.pred SerPlBld YCN-BGZ-UiWFyp 60mL/min/1.73m2 Normal 412431882484 - [facility] HCO3 SerPl-sCnc 33mmol/L Above high normal 132311809041 20 - 30 [facility] Glucose SerPl-mCnc 188mg/dL Above high normal 224897845620 70 - 100 [facility] BUN/Creat SerPl 30 Above high normal 154117506664 8 - 23 [facility] Chloride SerPl-sCnc 98mmol/L Normal [id number] 98 - 10 7 [facility] Calcium SerPl-mCnc 9.8mg/dL Normal [id number] 8.8 - 10.2 [facility] Sodium SerPl-sCnc 140mmol/L Normal [id number] 136 - 144 [facility] Potassium SerPl-sCnc 3.8mmol/L Normal 3.3 - 5.3 [facility] INR PPP 1 Normal 0.86 - 1.12 [facility] Prothrombin time 11.1seconds Normal 9.6 - 12.3 [facility] aPTT PPP 39.1seconds Above high normal 23 - 31 .4 [facility] BKR VENT MODE (ARTERIAL BG DOMINGO QUESTION) CPAP Normal [facility] BKR OXYGEN MODE (ARTERIAL BG DOMINGO QUESTION) Ventilator Normal [facility] pCO2 BldA 51mmHg Above high normal 32 - 48 [facility] HCO3 std BldA-sCnc 32.6mmol/L Above high normal 21 - 28 [facility] BKR FIO2 (ARTERIAL BG [place]O QUESTION) 40% Normal [facility] pH BldA 7.42units Normal 7.35 - 7.45 [facility] BKR TEMPERATURE (ARTERIAL BG DOMINGO QUESTION) 98.4Fahrenheit Normal [facility] pO2 BldA 117mmHg Above high normal 83 - 108 [facility] SaO2 % BldA 99% Above high normal 94 - 98 [facility] BKR END TIDAL CO2/TCOM (ARTERIAL BG DOMINGO QUESTION) 54mmol/L Normal [facility] Base excess std BldA Calc-sCnc 8mmol/L Above high normal 239422861753 - [facility] Hgb Bld-mCnc 8.5g/dL Below low normal 843927693796 13.2 - 17.1 [facility] Eosinophil # Bld Auto 0.5v0116/uL Normal [id number] 0 - 1 [facility] MCHC RBC Auto-mCnc 30.8g/dL Below low normal 191264882263 3 1 - 36 [facility] PMV Bld Auto 11.3fL Normal [id number] 8 - 12 [facility] Basophils/leuk NFr Bld Auto 0.5% Normal [id number] 0 - 1.4 [facility] Monocytes/leuk NFr Bld Auto 8.2% Normal [id number] 4 - 12 [facility] RDW RBC Auto-Rto 13.1% Normal [id number] 11 - 15 [facility] Monocytes # Bld Auto 0.64s1074/uL Normal [id number] 0 - 1 [facility] Basophils # Bld Auto 0.45x0056/uL Normal [id number] 0 - 1 [facility] Imm Granulocytes # Bld Auto 0.67v9518/uL Normal 483721826816 0 - 0.3 [facility] Neutrophils # Bld Auto 3.12a9862/uL Normal [id number] 2 - 7.6 [facility] Hct VFr Bld Auto 27.6% Below low normal 816445938215 38. 5 - 50 [facility] Lymphocytes/leuk NFr Bld Auto 23% Normal [id number] 17 - 50 [facility] Lymphocytes # Bld Auto 1.06i2592/uL Normal 972456771559 0.6 - 3.7 [facility] nRBC/100 WBC Bld Auto-Rto 0% Normal [id number] 0 - 1 [facility] RBC # Bld Auto 2.85M/uL Below low normal [id number] 4 - 6 [facility] Neutrophils/leuk NFr Bld Auto 58.9% Normal 738041738620 39 - 72 [facility] Eosinophil/leuk NFr Bld Auto 8.5% Above high normal 257895841270 0 - 5 [facility] Imm Granulocytes/leuk NFr Bld Auto 0.9% Normal 793553679792 0 - 1 [facility] WBC # Bld Auto 5.6r1517/uL Normal [id number] 4 - 11 [facility] nRBC # Bld Auto 6d0297/uL Normal 617897744080 0 - 1 [facility] RBC Auto 96.8fL Normal [id number] 80 - 100 [facility] RBC Qn Auto 29.8pg Normal 106799311858 27 - 33 [facility] Platelet # Bld Auto 425k5565/uL Above high normal 7345701815 53 150 - 420 [facility] INR PPP 1.03 Normal 443336707665 0.86 - 1.12 [facility] Prothrombin time 11.4seconds Normal 759538211228 9.6 - 12.3 [facility] aPTT PPP 40.6seconds Above high normal [id number] 23 - 31 .4 [facility] BUN SerPl-mCnc 15mg/dL Normal 657921884694 6 - 20 [facility] Creat SerPl-mCnc 0.51mg/dL Normal 207055937414 0.4 - 1.3 [facility] Anion Gap3 SerPl-sCnc 8 Normal [id number] 7 - 17 [facility] GFR/BSA.pred SerPlBld FAQ-ZKM-GuEHlq 60mL/min/1.73m2 Normal 121665825028 - [facility] HCO3 SerPl-sCnc 31mmol/L Above high normal 499089586769 20 - 30 [facility] Glucose SerPl-mCnc 265mg/dL Above high normal 989595874851 70 - 100 [facility] BUN/Creat SerPl 29.4 Above high normal 895282711298 8 - 23 [facility] Chloride SerPl-sCnc 99mmol/L Normal 936111035212 98 - 10 7 [facility] Calcium SerPl-mCnc 9.4mg/dL Normal 312238968856 8.8 - 10.2 [facility] Sodium SerPl-sCnc 138mmol/L Normal 314003848810 136 - 144 [facility] Potassium SerPl-sCnc 3.7mmol/L Normal 126286518550 3.3 - 5.3 [facility] Phosphate SerPl-mCnc 2.4mg/dL Normal 971109569478 2.2 - 4.5 [facility] Magnesium SerPl-mCnc 1.9mg/dL Normal 819749816049 1.7 - 2.4 [facility] Hgb Bld-mCnc 8.3g/dL Below low normal 957510156667 13.2 - 17.1 [facility] Eosinophil # Bld Auto 0.86b4741/uL Normal 508023003230 0 - 1 [facility] MCHC RBC Auto-mCnc 31g/dL Normal 890495627352 31 - 36 [facility] PMV Bld Auto 11.3fL Normal 110264935963 8 - 12 [facility] Basophils/leuk NFr Bld Auto 0.4% Normal 072754431551 0 - 1.4 [facility] Monocytes/leuk NFr Bld Auto 11.5% Normal 615012009254 4 - 12 [facility] RDW RBC Auto-Rto 12.8% Normal 630631554936 11 - 15 [facility] Monocytes # Bld Auto 0.54j9143/uL Normal 929934068524 0 - 1 [facility] Basophils # Bld Auto 0.47l0760/uL Normal 394904617401 0 - 1 [facility] Imm Granulocytes # Bld Auto 0.11d6274/uL Normal 416908697155 0 - 0.3 [facility] Neutrophils # Bld Auto 2.65p8078/uL Normal 540960648877 2 - 7.6 [facility] Hct VFr Bld Auto 26.8% Below low normal 048781728764 38. 5 - 50 [facility] Lymphocytes/leuk NFr Bld Auto 21.3% Normal [id number] 17 - 50 [facility] Lymphocytes # Bld Auto 1.92n6064/uL Normal 129387378400 0.6 - 3.7 [facility] nRBC/100 WBC Bld Auto-Rto 0% Normal 843040660822 0 - 1 [facility] RBC # Bld Auto 2.79M/uL Below low normal 542367119590 4 - 6 [facility] Neutrophils/leuk NFr Bld Auto 60.3% Normal 962909234030 39 - 72 [facility] Eosinophil/leuk NFr Bld Auto 5.7% Above high normal 960960761800 0 - 5 [facility] Imm Granulocytes/leuk NFr Bld Auto 0.8% Normal 051577997641 0 - 1 [facility] WBC # Bld Auto 4.3p4538/uL Normal 793291378401 4 - 11 [facility] nRBC # Bld Auto 3g9714/uL Normal 369657743330 0 - 1 [facility] RBC Auto 96.1fL Normal 310236731000 80 - 100 [facility] RBC Qn Auto 29.7pg Normal 957515770219 27 - 33 [facility] Platelet # Bld Auto 217f6631/uL Above high normal 7977222850 44 150 - 420 [facility] B[facility] ABO GROUPING O Normal [facility] ANTIBODY SCREEN NEG Normal 128839025406 [facility] RH TYPE POS Normal 649648143189 [facility] INR PPP 1.08 Normal 075079882835 0.86 - 1.12 [facility] Prothrombin time 11.9seconds Normal 073481478811 9.6 - 12.3 [facility] aPTT PPP 46seconds Above high normal 530001619589 23 - 31.4 [facility] BUN SerPl-mCnc 16mg/dL Normal 021725021301 6 - 20 [facility] Creat SerPl-mCnc 0.62mg/dL Normal 675973804513 0.4 - 1.3 [facility] Anion Gap3 SerPl-sCnc 9 Normal 704402055671 7 - 17 [facility] GFR/BSA.pred SerPlBld LUH-BDV-LhTSvm 60mL/min/1.73m2 Normal 123715449794 - [facility] HCO3 SerPl-sCnc 28mmol/L Normal 061372216039 20 - 30 [facility] Glucose SerPl-mCnc 235mg/dL Above high normal 673595181350 70 - 100 [facility] BUN/Creat SerPl 25.8 Above high normal 353210535182 8 - 23 [facility] Chloride SerPl-sCnc 98mmol/L Normal 166400168641 98 - 10 7 [facility] Calcium SerPl-mCnc 9.1mg/dL Normal 686565936919 8.8 - 10.2 [facility] Sodium SerPl-sCnc 135mmol/L Below low normal 969119464087 13 6 - 144 [facility] Potassium SerPl-sCnc 3.9mmol/L Normal [id number] 3.3 - 5.3 [facility] Phosphate SerPl-mCnc 3.4mg/dL Normal 153867897538 2.2 - 4.5 [facility] Magnesium SerPl-mCnc 1.8mg/dL Normal 517175811688 1.7 - 2.4 [facility] Hgb Bld-mCnc 8.6g/dL Below low normal 13.2 - 17.1 [facility] Eosinophil # Bld Auto 0.49i8725/uL Normal 0 - 1 [facility] MCHC RBC Auto-mCnc 32.5g/dL Normal 31 - 36 [facility] PMV Bld Auto 11fL Normal 8 - 12 [facility] Basophils/leuk NFr Bld Auto 0.3% Normal 0 - 1.4 [facility] Monocytes/leuk NFr Bld Auto 11.2% Normal 4 - 12 [facility] RDW RBC Auto-Rto 12.7% Normal 11 - 15 [facility] Monocytes # Bld Auto 0.12u7734/uL Normal 308503267789 0 - 1 [facility] Basophils # Bld Auto 0.13i4026/uL Normal 0 - 1 [facility] Imm Granulocytes # Bld Auto 0.20e0419/uL Normal 0 - 0.3 [facility] Neutrophils # Bld Auto 4.96c2823/uL Normal 426146563985 2 - 7.6 [facility] Hct VFr Bld Auto 26.5% Below low normal 640359997903 38. 5 - 50 [facility] Lymphocytes/leuk NFr Bld Auto 14.8% Below low normal 378851547329 17 - 50 [facility] Lymphocytes # Bld Auto 0.21q2426/uL Normal 0.6 - 3.7 [facility] nRBC/100 WBC Bld Auto-Rto 0% Normal 0 - 1 [facility] RBC # Bld Auto 2.8M/uL Below low normal 4 - 6 [facility] Neutrophils/leuk NFr Bld Auto 68% Normal 381866325006 39 - 72 [facility] Eosinophil/leuk NFr Bld Auto 5.2% Above high normal 345380980527 0 - 5 [facility] Imm Granulocytes/leuk NFr Bld Auto 0.5% Normal 101063457334 0 - 1 [facility] WBC # Bld Auto 5t2410/uL Normal 332571916676 4 - 11 [facility] nRBC # Bld Auto 9l3752/uL Normal 645353355347 0 - 1 [facility] M[facility] RBC Auto 94.6fL Normal 133952681827 80 - 100 [facility] RBC Qn Auto 30.7pg Normal 001451358097 27 - 33 [facility] Platelet # Bld Auto 685p4930/uL Above high normal 6383847678 38 150 - 420 [facility] Valproate SerPl-mCnc 30.1ug/mL Below low normal 118851127373 50 - 100 [facility] AST/ALT SerPl-cRto 0.7 Normal 844086617290 - [facility] Bilirub Direct SerPl-mCnc 0.6mg/dL Above high normal 898839949604 - [facility] ALP SerPl-cCnc 163U/L Above high normal 603304245140 9 - 122 [facility] ALT SerPl w/o P-5'-P-cCnc 28U/L Normal 974431649976 9 - 59 [facility] AST SerPl w P-5'-P-cCnc 19U/L Normal [id number] 10 - 35 [facility] Bilirub SerPl-mCnc 0.9mg/dL Normal 595788197616 - [facility] Ammonia Plas-sCnc 31umol/L Normal 715526169728 11 - 35 [facility] BUN SerPl-mCnc 18mg/dL Normal [id number] 6 - 20 [facility] Creat SerPl-mCnc 0.69mg/dL Normal 215020848582 0.4 - 1.3 [facility] Anion Gap3 SerPl-sCnc 13 Normal 613446516691 7 - 17 [facility] GFR/BSA.pred SerPlBld VPJ-AGY-QdDDsl 60mL/min/1.73m2 Normal 402490196590 - [facility] HCO3 SerPl-sCnc 27mmol/L Normal 499754684245 20 - 30 [facility] Glucose SerPl-mCnc 132mg/dL Above high normal 774758932107 70 - 100 [facility] BUN/Creat SerPl 26.1 Above high normal 084980446313 8 - 23 [facility] Chloride SerPl-sCnc 100mmol/L Normal 905303061837 98 - 10 7 [facility] Calcium SerPl-mCnc 9.6mg/dL Normal 932144114725 8.8 - 10.2 [facility] Sodium SerPl-sCnc 140mmol/L Normal 268036253098 136 - 144 [facility] Potassium SerPl-sCnc 3.3mmol/L Normal 475027299532 3.3 - 5.3 [facility] Magnesium SerPl-mCnc 1.8mg/dL Normal 484673395436 1.7 - 2.4 [facility] Phosphate SerPl-mCnc 4.7mg/dL Above high normal 320802717572 2.2 - 4.5 [facility] INR PPP 1.08 Normal 847701129896 0.86 - 1.12 [facility] Prothrombin time 11.9seconds Normal 127001738080 9.6 - 12.3 [facility] aPTT PPP 43.3seconds Above high normal 909758235993 23 - 31 .4 [facility] Hgb Bld-mCnc 8.6g/dL Below low normal 995700582495 13.2 - 17.1 [facility] Eosinophil # Bld Auto 0.25j5134/uL Normal 786217129254 0 - 1 [facility] MCHC RBC Auto-mCnc 31.7g/dL Normal 707516072573 31 - 36 [facility] PMV Bld Auto 11.1fL Normal 525374342895 8 - 12 [facility] Basophils/leuk NFr Bld Auto 0.6% Normal 784357708269 0 - 1.4 [facility] Monocytes/leuk NFr Bld Auto 12.4% Above high normal 083356396937 4 - 12 [facility] RDW RBC Auto-Rto 12.8% Normal 444966507673 11 - 15 [facility] Monocytes # Bld Auto 0.00v5221/uL Normal 808975225389 0 - 1 [facility] Basophils # Bld Auto 0.71r9899/uL Normal 236654242183 0 - 1 [facility] Imm Granulocytes # Bld Auto 0.53b8864/uL Normal 205915937576 0 - 0.3 [facility] Neutrophils # Bld Auto 4.06s9604/uL Normal 783308627984 2 - 7.6 [facility] Hct VFr Bld Auto 27.1% Below low normal 258412183072 38. 5 - 50 [facility] Lymphocytes/leuk NFr Bld Auto 20.1% Normal 124552620817 17 - 50 [facility] Lymphocytes # Bld Auto 1.14e1863/uL Normal 086344681942 0.6 - 3.7 [facility] nRBC/100 WBC Bld Auto-Rto 0% Normal 501917650714 0 - 1 [facility] RBC # Bld Auto 2.86M/uL Below low normal 543891000200 4 - 6 [facility] Neutrophils/leuk NFr Bld Auto 64.3% Normal 526785578318 39 - 72 [facility] Eosinophil/leuk NFr Bld Auto 2.2% Normal 717722599550 0 - 5 [facility] Imm Granulocytes/leuk NFr Bld Auto 0.4% Normal 487740646759 0 - 1 [facility] WBC # Bld Auto 6.2p4039/uL Normal 816698013155 4 - 11 [facility] nRBC # Bld Auto 3z0848/uL Normal 918431015048 0 - 1 [facility] M[facility] RBC Auto 94.8fL Normal 652067760446 80 - 100 [facility] M[facility] RBC Qn Auto 30.1pg Normal 251232655652 27 - 33 [facility] Platelet # Bld Auto 932v4057/uL Above high normal 3064987676 47 150 - 420 [facility] pCO2 BldA 39mmHg Normal 371371318032 32 - 48 [facility] HCO3 std BldA-sCnc 30.2mmol/L Above high normal 538262184185 21 - 28 [facility] pH BldA 7.51units Above high normal 771460610183 7.35 - 7.45 [facility] BKR TEMPERATURE (ARTERIAL BG DOMINGO QUESTION) 100.2Fahrenheit Normal 272102403164 [facility] pO2 BldA 148mmHg Above high normal 802814649044 83 - 108 [facility] SaO2 % BldA 99% Above high normal 731649669894 94 - 98 [facility] Base excess std BldA Calc-sCnc 7mmol/L Above high normal 881752412523 - [facility] Procalcitonin SerPl-mCnc 0.07ng/mL Normal 492688797991 - [facility] B[facility] VENT MODE (ARTERIAL BG DOMINGO QUESTION) AC/PC Normal [id number] [facility] OXYGEN MODE (ARTERIAL BG DOMINGO QUESTION) Ventilator Normal 767302850832 [facility] SP02 (ARTERIAL BG DOMINGO QUESTION) 96% Normal 635667372959 [facility] pCO2 BldA 42mmHg Normal 672363108509 32 - 48 [facility] HCO3 std BldA-sCnc 31.3mmol/L Above high normal 344738359246 21 - 28 [facility] FIO2 (ARTERIAL BG DOMINGO QUESTION) 40% Normal 538968451701 [facility] pH BldA 7.49units Above high normal 331753705505 7.35 - 7.45 [facility] BKR TEMPERATURE (ARTERIAL BG DOMINGO QUESTION) 101.3Fahrenheit Normal 043053731514 [facility] pO2 BldA 108mmHg Normal 785676948960 83 - 108 [facility] SaO2 % BldA 99% Above high normal 105013770539 94 - 98 [facility] Base excess std BldA Calc-sCnc 8mmol/L Above high normal 019583650436 - [facility] BUN SerPl-mCnc 17mg/dL Normal 908723699444 6 - 20 [facility] Creat SerPl-mCnc 0.59mg/dL Normal 606431579021 0.4 - 1.3 [facility] Anion Gap3 SerPl-sCnc 11 Normal [id number] 7 - 17 [facility] GFR/BSA.pred SerPlBld AGU-BPY-YzFMiv 60mL/min/1.73m2 Normal 936572844159 - [facility] HCO3 SerPl-sCnc 29mmol/L Normal 018422250435 20 - 30 [facility] Glucose SerPl-mCnc 218mg/dL Above high normal 897904703149 70 - 100 [facility] BUN/Creat SerPl 28.8 Above high normal 518783830627 8 - 23 [facility] Chloride SerPl-sCnc 99mmol/L Normal 181080899037 98 - 10 7 [facility] Calcium SerPl-mCnc 9.4mg/dL Normal 354198499613 8.8 - 10.2 [facility] Sodium SerPl-sCnc 139mmol/L Normal 334335740973 136 - 144 [facility] Potassium SerPl-sCnc 4mmol/L Normal 715575278177 3.3 - 5.3 [facility] Phosphate SerPl-mCnc 4mg/dL Normal 643453345494 2.2 - 4.5 [facility] Magnesium SerPl-mCnc 1.8mg/dL Normal 989061843677 1.7 - 2.4 [facility] INR PPP 1.04 Normal 746752676193 0.86 - 1.12 [facility] Prothrombin time 11.5seconds Normal 839400812689 9.6 - 12.3 [facility] aPTT PPP 39.7seconds Above high normal 908983315637 23 - 31 .4 [facility] Hgb Bld-mCnc 8.8g/dL Below low normal 206431864936 13.2 - 17.1 [facility] Eosinophil # Bld Auto 0.38n6904/uL Normal 677360339233 0 - 1 [facility] MCHC RBC Auto-mCnc 31.5g/dL Normal 062523339519 31 - 36 [facility] PMV Bld Auto 11.1fL Normal 503362548972 8 - 12 [facility] Basophils/leuk NFr Bld Auto 0.4% Normal 181367918099 0 - 1.4 [facility] Monocytes/leuk NFr Bld Auto 9.4% Normal 396755354957 4 - 12 [facility] RDW RBC Auto-Rto 12.8% Normal 562420573388 11 - 15 [facility] Monocytes # Bld Auto 0.21a1084/uL Normal 585290571293 0 - 1 [facility] Basophils # Bld Auto 0.23m3214/uL Normal 036971868954 0 - 1 [facility] Imm Granulocytes # Bld Auto 0.40h1771/uL Normal 721298514704 0 - 0.3 [facility] Neutrophils # Bld Auto 5.79u3091/uL Normal 316474063173 2 - 7.6 [facility] Hct VFr Bld Auto 27.9% Below low normal 807302490900 38. 5 - 50 [facility] Lymphocytes/leuk NFr Bld Auto 20.1% Normal 448752424269 17 - 50 [facility] Lymphocytes # Bld Auto 1.61r4097/uL Normal 853953710030 0.6 - 3.7 [facility] nRBC/100 WBC Bld Auto-Rto 0% Normal 969951497160 0 - 1 [facility] RBC # Bld Auto 2.95M/uL Below low normal 477438929870 4 - 6 [facility] Neutrophils/leuk NFr Bld Auto 67.6% Normal 520082116534 39 - 72 [facility] Eosinophil/leuk NFr Bld Auto 1.8% Normal 078452840756 0 - 5 [facility] Imm Granulocytes/leuk NFr Bld Auto 0.7% Normal 454251830256 0 - 1 [facility] WBC # Bld Auto 7.7z7359/uL Normal 919758596011 4 - 11 [facility] nRBC # Bld Auto 7b8806/uL Normal 263533415791 0 - 1 [facility] M[facility] RBC Auto 94.6fL Normal 208470257380 80 - 100 [facility] M[facility] RBC Qn Auto 29.8pg Normal 096778696433 27 - 33 [facility] Platelet # Bld Auto 732o6823/uL Above high normal 5595047792 44 150 - 420 [facility] NT-proBNP SerPl-mCnc 36pg/mL Normal 061812752295 - 125 [facility] B[facility] ABO GROUPING O Normal 506624440401 [facility] ANTIBODY SCREEN NEG Normal 837997986228 [facility] RH TYPE POS Normal 642929936844 [facility] BUN SerPl-mCnc 18mg/dL Normal 011983891277 6 - 20 [facility] Creat SerPl-mCnc 0.62mg/dL Normal 355493474145 0.4 - 1.3 [facility] Anion Gap3 SerPl-sCnc 13 Normal 282633206370 7 - 17 [facility] GFR/BSA.pred SerPlBld FBN-FRG-WeDUtw 60mL/min/1.73m2 Normal 216253134224 - [facility] HCO3 SerPl-sCnc 29mmol/L Normal 223827589512 20 - 30 [facility] Glucose SerPl-mCnc 233mg/dL Above high normal 261889706734 70 - 100 [facility] BUN/Creat SerPl 29 Above high normal 979961640192 8 - 23 [facility] Chloride SerPl-sCnc 95mmol/L Below low normal 092180743167 98 - 107 [facility] Calcium SerPl-mCnc 9.3mg/dL Normal 526949834176 8.8 - 10.2 [facility] Sodium SerPl-sCnc 137mmol/L Normal 542923738040 136 - 144 [facility] Potassium SerPl-sCnc 3.3mmol/L Normal 804810110680 3.3 - 5.3 [facility] Phosphate SerPl-mCnc 3.6mg/dL Normal 643361338470 2.2 - 4.5 [facility] Magnesium SerPl-mCnc 1.6mg/dL Below low normal 926977548191 1.7 - 2.4 [facility] Hgb Bld-mCnc 9g/dL Below low normal 765677775019 13.2 - 17.1 [facility] Eosinophil # Bld Auto 0.90x0197/uL Normal 133173297383 0 - 1 [facility] MCHC RBC Auto-mCnc 31.5g/dL Normal 715021533020 31 - 36 [facility] PMV Bld Auto 11.3fL Normal 405110184666 8 - 12 [facility] Basophils/leuk NFr Bld Auto 0.4% Normal 321617521791 0 - 1.4 [facility] Monocytes/leuk NFr Bld Auto 6.3% Normal 265231700963 4 - 12 [facility] RDW RBC Auto-Rto 13% Normal 585007265790 11 - 15 [facility] Monocytes # Bld Auto 0.19p4000/uL Normal 322866263041 0 - 1 [facility] Basophils # Bld Auto 0.08n7710/uL Normal 188444458474 0 - 1 [facility] Imm Granulocytes # Bld Auto 0.69k4152/uL Normal 570850453026 0 - 0.3 [facility] Neutrophils # Bld Auto 6.69v3699/uL Normal 940293079560 2 - 7.6 [facility] Hct VFr Bld Auto 28.6% Below low normal 412197577729 38. 5 - 50 [facility] Lymphocytes/leuk NFr Bld Auto 17.1% Normal 922797446863 17 - 50 [facility] Lymphocytes # Bld Auto 1.34q1977/uL Normal 944595930156 0.6 - 3.7 [facility] nRBC/100 WBC Bld Auto-Rto 0% Normal 041149089324 0 - 1 [facility] RBC # Bld Auto 2.99M/uL Below low normal 798846130966 4 - 6 [facility] Neutrophils/leuk NFr Bld Auto 74.1% Above high normal 138643866950 39 - 72 [facility] Eosinophil/leuk NFr Bld Auto 1.4% Normal 492986378001 0 - 5 [facility] Imm Granulocytes/leuk NFr Bld Auto 0.7% Normal 888509305560 0 - 1 [facility] WBC # Bld Auto 9u7926/uL Normal 279898273439 4 - 11 [facility] nRBC # Bld Auto 2l9906/uL Normal 776622373286 0 - 1 [facility] MCV RBC Auto 95.7fL Normal 068562620781 80 - 100 [facility] MCH RBC Qn Auto 30.1pg Normal 024338774365 27 - 33 [facility] Platelet # Bld Auto 660z7956/uL Above high normal 6491316522 32 150 - 420 [facility] Phosphate SerPl-mCnc 3.7mg/dL Normal 688135863812 2.2 - 4.5 [facility] BUN SerPl-mCnc 19mg/dL Normal 935126928846 6 - 20 [facility] Creat SerPl-mCnc 0.67mg/dL Normal 021671028758 0.4 - 1.3 [facility] Anion Gap3 SerPl-sCnc 13 Normal 307414515113 7 - 17 [facility] GFR/BSA.pred SerPlBld GJE-GUP-QdFGtr 60mL/min/1.73m2 Normal 080051401353 - [facility] HCO3 SerPl-sCnc 29mmol/L Normal 846897479223 20 - 30 [facility] Glucose SerPl-mCnc 236mg/dL Above high normal 394690087161 70 - 100 [facility] BUN/Creat SerPl 28.4 Above high normal 300860281830 8 - 23 [facility] Chloride SerPl-sCnc 99mmol/L Normal 256600786324 98 - 10 7 [facility] Calcium SerPl-mCnc 9.2mg/dL Normal 516382542221 8.8 - 10.2 [facility] Sodium SerPl-sCnc 141mmol/L Normal 702738270356 136 - 144 [facility] Potassium SerPl-sCnc 3.7mmol/L Normal 150292025430 3.3 - 5.3 [facility] Magnesium SerPl-mCnc 1.8mg/dL Normal 704840060495 1.7 - 2.4 [facility] Prealb SerPl Neph-mCnc 16.1mg/dL Below low normal 989677366594 20 - 40 [facility] Hgb Bld-mCnc 8.8g/dL Below low normal 597032731127 13.2 - 17.1 [facility] Eosinophil # Bld Auto 0.37d0632/uL Normal 594969975152 0 - 1 [facility] MCHC RBC Auto-mCnc 31.8g/dL Normal 014998572896 31 - 36 [facility] PMV Bld Auto 11fL Normal 757224250668 8 - 12 [facility] Basophils/leuk NFr Bld Auto 0.5% Normal 452401962750 0 - 1.4 [facility] Monocytes/leuk NFr Bld Auto 7.5% Normal 493223061445 4 - 12 [facility] RDW RBC Auto-Rto 12.9% Normal 992889615783 11 - 15 [facility] Monocytes # Bld Auto 0.19r2793/uL Normal 344722638856 0 - 1 [facility] Basophils # Bld Auto 0.22c5848/uL Normal 135355338489 0 - 1 [facility] Imm Granulocytes # Bld Auto 0.87p3450/uL Normal 409888965792 0 - 0.3 [facility] Neutrophils # Bld Auto 5.00z1647/uL Normal 575295659593 2 - 7.6 [facility] Hct VFr Bld Auto 27.7% Below low normal 770630775795 38. 5 - 50 [facility] Lymphocytes/leuk NFr Bld Auto 17.4% Normal 371547215377 17 - 50 [facility] Lymphocytes # Bld Auto 1.49y0603/uL Normal 253897454844 0.6 - 3.7 [facility] nRBC/100 WBC Bld Auto-Rto 0% Normal 454416582422 0 - 1 [facility] RBC # Bld Auto 2.92M/uL Below low normal 367233650646 4 - 6 [facility] Neutrophils/leuk NFr Bld Auto 73.2% Above high normal 708566924193 39 - 72 [facility] Eosinophil/leuk NFr Bld Auto 0.9% Normal 077155750649 0 - 5 [facility] Imm Granulocytes/leuk NFr Bld Auto 0.5% Normal 668642405895 0 - 1 [facility] WBC # Bld Auto 8.1p4374/uL Normal 608789355804 4 - 11 [facility] nRBC # Bld Auto 4k5184/uL Normal 187827261314 0 - 1 [facility] MCV RBC Auto 94.9fL Normal 578814511234 80 - 100 [facility] MCH RBC Qn Auto 30.1pg Normal 420594916103 27 - 33 [facility] Platelet # Bld Auto 445b0413/uL Above high normal 3592776528 14 150 - 420 [facility] CRP SerPl HS-mCnc 97mg/L Above high normal 732173011092 - [facility] Albumin SerPl BCG-mCnc 3.2g/dL Below low normal 297456627261 3.6 - 5.1 [facility] Procalcitonin SerPl-mCnc 0.12ng/mL Normal 947531831037 - [facility] Cortis SerPl-mCnc 13.8ug/dL Normal 995487963728 - [facility] Phosphate SerPl-mCnc 3.4mg/dL Normal 760216538503 2.2 - 4.5 [facility] BUN SerPl-mCnc 23mg/dL Above high normal 724918409850 6 - 20 [facility] Creat SerPl-mCnc 0.59mg/dL Normal 464869362321 0.4 - 1.3 [facility] Anion Gap3 SerPl-sCnc 11 Normal 515020154041 7 - 17 [facility] GFR/BSA.pred SerPlBld PEZ-YXQ-QyIZrt 60mL/min/1.73m2 Normal [id number] - [facility] HCO3 SerPl-sCnc 28mmol/L Normal [id number] 20 - 30 [facility] Glucose SerPl-mCnc 276mg/dL Above high normal 009583199826 70 - 100 [facility] BUN/Creat SerPl 39 Above high normal 261754937261 8 - 23 [facility] Chloride SerPl-sCnc 96mmol/L Below low normal 373544856426 98 - 107 [facility] Calcium SerPl-mCnc 9.4mg/dL Normal 414785477247 8.8 - 10.2 [facility] Sodium SerPl-sCnc 135mmol/L Below low normal 433220743013 13 6 - 144 [facility] Potassium SerPl-sCnc 3.5mmol/L Normal 029178731025 3.3 - 5.3 [facility] Magnesium SerPl-mCnc 2mg/dL Normal 368240060053 1.7 - 2.4 [facility] Hgb Bld-mCnc 8.8g/dL Below low normal 017238979687 13.2 - 17.1 [facility] Eosinophil # Bld Auto 0.41h0705/uL Normal 463606222531 0 - 1 [facility] MCHC RBC Auto-mCnc 32.2g/dL Normal 634977511012 31 - 36 [facility] PMV Bld Auto 11fL Normal 817820943648 8 - 12 [facility] Basophils/leuk NFr Bld Auto 0.5% Normal 689256258321 0 - 1.4 [facility] Monocytes/leuk NFr Bld Auto 7.3% Normal 944123446670 4 - 12 [facility] RDW RBC Auto-Rto 13% Normal 722442038223 11 - 15 [facility] Monocytes # Bld Auto 0.70w4359/uL Normal 713750151614 0 - 1 [facility] Basophils # Bld Auto 0.07g8443/uL Normal 559704920281 0 - 1 [facility] Imm Granulocytes # Bld Auto 0.49a0760/uL Normal 542299228238 0 - 0.3 [facility] Neutrophils # Bld Auto 6.77s7540/uL Normal 906025139922 2 - 7.6 [facility] Hct VFr Bld Auto 27.3% Below low normal 383986201171 38. 5 - 50 [facility] Lymphocytes/leuk NFr Bld Auto 22.2% Normal 425614931437 17 - 50 [facility] Lymphocytes # Bld Auto 1.71w3113/uL Normal 229344676807 0.6 - 3.7 [facility] nRBC/100 WBC Bld Auto-Rto 0% Normal 130307791446 0 - 1 [facility] RBC # Bld Auto 2.86M/uL Below low normal 722370055230 4 - 6 [facility] Neutrophils/leuk NFr Bld Auto 68% Normal 762684384272 39 - 72 [facility] Eosinophil/leuk NFr Bld Auto 1.4% Normal 876093242428 0 - 5 [facility] Imm Granulocytes/leuk NFr Bld Auto 0.6% Normal 604573653059 0 - 1 [facility] WBC # Bld Auto 8.5c4005/uL Normal 667916204613 4 - 11 [facility] nRBC # Bld Auto 2h9432/uL Normal 457644112376 0 - 1 [facility] MCV RBC Auto 95.5fL Normal 622601776431 80 - 100 [facility] MCH RBC Qn Auto 30.8pg Normal 354258101584 27 - 33 [facility] Platelet # Bld Auto 497y4320/uL Above high normal 5983354307 01 150 - 420 [facility] BUN SerPl-mCnc 25mg/dL Above high normal 127076391875 6 - 20 [facility] Creat SerPl-mCnc 0.7mg/dL Normal 937615315369 0.4 - 1.3 [facility] Anion Gap3 SerPl-sCnc 12 Normal [id number] 7 - 17 [facility] GFR/BSA.pred SerPlBld ROW-CYK-LlRLru 60mL/min/1.73m2 Normal 290324484658 - [facility] HCO3 SerPl-sCnc 26mmol/L Normal [id number] 20 - 30 [facility] Glucose SerPl-mCnc 188mg/dL Above high normal 860639508762 70 - 100 [facility] BUN/Creat SerPl 35.7 Above high normal 230107939722 8 - 23 [facility] Chloride SerPl-sCnc 100mmol/L Normal 669250430899 98 - 10 7 [facility] Calcium SerPl-mCnc 9mg/dL Normal 056106004908 8.8 - 10.2 [facility] Sodium SerPl-sCnc 138mmol/L Normal 710920645752 136 - 144 [facility] Potassium SerPl-sCnc 3.9mmol/L Normal 807285186632 3.3 - 5.3 [facility] BKR ABO GROUPING O Normal 528079358607 [facility] ANTIBODY SCREEN NEG Normal 578565519503 [facility] RH TYPE POS Normal 922443183421 [facility] BUN SerPl-mCnc 22mg/dL Above high normal 682827425634 6 - 20 [facility] Creat SerPl-mCnc 0.65mg/dL Normal 807599698953 0.4 - 1.3 [facility] Anion Gap3 SerPl-sCnc 11 Normal 351989165884 7 - 17 [facility] GFR/BSA.pred SerPlBld UOO-KVR-UlZQdw 60mL/min/1.73m2 Normal 641960441444 - [facility] HCO3 SerPl-sCnc 23mmol/L Normal 861657495851 20 - 30 [facility] Glucose SerPl-mCnc 150mg/dL Above high normal 892485827950 70 - 100 [facility] BUN/Creat SerPl 33.8 Above high normal 618059801537 8 - 23 [facility] Chloride SerPl-sCnc 108mmol/L Above high normal 808017235618 98 - 107 [facility] Calcium SerPl-mCnc 7.9mg/dL Below low normal 90023210675 2 8.8 - 10.2 [facility] Sodium SerPl-sCnc 142mmol/L Normal 529174501442 136 - 144 [facility] Potassium SerPl-sCnc 3.1mmol/L Below low normal 460340948143 3.3 - 5.3 [facility] Phosphate SerPl-mCnc 3.4mg/dL Normal 609862492570 2.2 - 4.5 [facility] Magnesium SerPl-mCnc 1.6mg/dL Below low normal 314459852347 1.7 - 2.4 [facility] Hgb Bld-mCnc 8.8g/dL Below low normal 293904920840 13.2 - 17.1 [facility] Eosinophil # Bld Auto 0.46i3292/uL Normal 787435342090 0 - 1 [facility] MCHC RBC Auto-mCnc 33g/dL Normal 537930709440 31 - 36 [facility] PMV Bld Auto 10.7fL Normal 398839685167 8 - 12 [facility] Basophils/leuk NFr Bld Auto 0.6% Normal 212429150840 0 - 1.4 [facility] Monocytes/leuk NFr Bld Auto 6.3% Normal 612391637932 4 - 12 [facility] RDW RBC Auto-Rto 13.2% Normal 212776631954 11 - 15 [facility] Monocytes # Bld Auto 0.94q3283/uL Normal 378802830166 0 - 1 [facility] Basophils # Bld Auto 0.51o8442/uL Normal 714317163971 0 - 1 [facility] Imm Granulocytes # Bld Auto 0.91e5086/uL Normal 078844644894 0 - 0.3 [facility] Neutrophils # Bld Auto 5.2r2204/uL Normal 755549736943 2 - 7.6 [facility] Hct VFr Bld Auto 26.7% Below low normal 836628168930 38. 5 - 50 [facility] Lymphocytes/leuk NFr Bld Auto 15.6% Below low normal 231606441622 17 - 50 [facility] Lymphocytes # Bld Auto 1.76i9560/uL Normal 765092792016 0.6 - 3.7 [facility] nRBC/100 WBC Bld Auto-Rto 0% Normal 229046806832 0 - 1 [facility] RBC # Bld Auto 2.8M/uL Below low normal 371677525567 4 - 6 [facility] Neutrophils/leuk NFr Bld Auto 73.1% Above high normal [id number] 39 - 72 [facility] Eosinophil/leuk NFr Bld Auto 4.1% Normal 022454196495 0 - 5 [facility] Imm Granulocytes/leuk NFr Bld Auto 0.3% Normal 817978514519 0 - 1 [facility] WBC # Bld Auto 7.5b5057/uL Normal 195566813052 4 - 11 [facility] nRBC # Bld Auto 2k2493/uL Normal 882231267154 0 - 1 [facility] MCV RBC Auto 95.4fL Normal 224655308859 80 - 100 [facility] MCH RBC Qn Auto 31.4pg Normal 936566681755 27 - 33 [facility] Platelet # Bld Auto 851c0260/uL Above high normal 7814683678 09 150 - 420 [facility] Procalcitonin SerPl-mCnc 0.13ng/mL Normal 522143822968 - [facility] BUN SerPl-mCnc 25mg/dL Above high normal 402858359774 6 - 20 [facility] Creat SerPl-mCnc 0.73mg/dL Normal 597261547630 0.4 - 1.3 [facility] Anion Gap3 SerPl-sCnc 11 Normal 540243173868 7 - 17 [facility] GFR/BSA.pred SerPlBld COP-ALM-UyPAgv 60mL/min/1.73m2 Normal 211770012292 - [facility] HCO3 SerPl-sCnc 24mmol/L Normal 414900397224 20 - 30 [facility] Glucose SerPl-mCnc 181mg/dL Above high normal 574344382140 70 - 100 [facility] BUN/Creat SerPl 34.2 Above high normal 578991007258 8 - 23 [facility] Chloride SerPl-sCnc 108mmol/L Above high normal 884385414971 98 - 107 [facility] Calcium SerPl-mCnc 8.4mg/dL Below low normal 54746730604 3 8.8 - 10.2 [facility] Sodium SerPl-sCnc 143mmol/L Normal 679644641524 136 - 144 [facility] Potassium SerPl-sCnc 3.1mmol/L Below low normal 498390410090 3.3 - 5.3 [facility] Phosphate SerPl-mCnc 3.2mg/dL Normal 818039465485 2.2 - 4.5 [facility] Magnesium SerPl-mCnc 1.8mg/dL Normal 879161192015 1.7 - 2.4 [facility] Hgb Bld-mCnc 8.3g/dL Below low normal 827128141783 13.2 - 17.1 [facility] Eosinophil # Bld Auto 0.7w6972/uL Normal 577603728905 0 - 1 [facility] MCHC RBC Auto-mCnc 32g/dL Normal 190825470896 31 - 36 [facility] PMV Bld Auto 10.7fL Normal 345615605388 8 - 12 [facility] Basophils/leuk NFr Bld Auto 0.5% Normal 724841494866 0 - 1.4 [facility] Monocytes/leuk NFr Bld Auto 8.1% Normal 555498143859 4 - 12 [facility] RDW RBC Auto-Rto 13.3% Normal 299942383232 11 - 15 [facility] Monocytes # Bld Auto 0.74b3991/uL Normal 200569914387 0 - 1 [facility] Basophils # Bld Auto 0.33j9162/uL Normal 957852342369 0 - 1 [facility] Granulocytes # Bld Auto 0.84z2740/uL Normal 226567711607 0 - 0.3 [facility] Neutrophils # Bld Auto 3.50a8503/uL Normal 991331802194 2 - 7.6 [facility] Hct VFr Bld Auto 25.9% Below low normal 396057567813 38. 5 - 50 [facility] Lymphocytes/leuk NFr Bld Auto 20.8% Normal 436477583749 17 - 50 [facility] Lymphocytes # Bld Auto 1.74j6596/uL Normal 667473078569 0.6 - 3.7 [facility] nRBC/100 WBC Bld Auto-Rto 0% Normal 078114520750 0 - 1 [facility] RBC # Bld Auto 2.66M/uL Below low normal 083900771845 4 - 6 [facility] Neutrophils/leuk NFr Bld Auto 64.8% Normal 514057836654 39 - 72 [facility] Eosinophil/leuk NFr Bld Auto 5.1% Above high normal 733209268514 0 - 5 [facility] Granulocytes/leuk NFr Bld Auto 0.7% Normal 606002901842 0 - 1 [facility] WBC # Bld Auto 5.1k2223/uL Normal 155272540520 4 - 11 [facility] nRBC # Bld Auto 1h4738/uL Normal 702344808956 0 - 1 [facility] MCV RBC Auto 97.4fL Normal 067101655536 80 - 100 [facility] MCH RBC Qn Auto 31.2pg Normal 820633252398 27 - 33 [facility] Platelet # Bld Auto 741t1779/uL Above high normal 0581392466 29 150 - 420 [facility] BUN SerPl-mCnc 27mg/dL Above high normal 086034722958 6 - 20 [facility] Creat SerPl-mCnc 0.71mg/dL Normal 119856038243 0.4 - 1.3 [facility] Anion Gap3 SerPl-sCnc 9 Normal 736584632815 7 - 17 [facility] GFR/BSA.pred SerPlBld ZPS-DFR-RcOPiq 60mL/min/1.73m2 Normal 041658055053 - [facility] HCO3 SerPl-sCnc 26mmol/L Normal 850647666145 20 - 30 [facility] Glucose SerPl-mCnc 224mg/dL Above high normal 674879121103 70 - 100 [facility] BUN/Creat SerPl 38 Above high normal 411405533783 8 - 23 [facility] Chloride SerPl-sCnc 108mmol/L Above high normal 578645988838 98 - 107 [facility] Calcium SerPl-mCnc 8.8mg/dL Normal 524843938792 8.8 - 10.2 [facility] Sodium SerPl-sCnc 143mmol/L Normal 267076003481 136 - 144 [facility] Potassium SerPl-sCnc 3.4mmol/L Normal 095672187834 3.3 - 5.3 [facility] Magnesium SerPl-mCnc 1.9mg/dL Normal 502571947311 1.7 - 2.4 [facility] Phosphate SerPl-mCnc 2.9mg/dL Normal 728426438835 2.2 - 4.5 [facility] INR PPP 1.02 Normal 553487606539 0.86 - 1.12 [facility] Prothrombin time 11.3seconds Normal 151959885685 9.6 - 12.3 [facility] aPTT PPP 37.9seconds Above high normal 900229987453 23 - 31 .4 [facility] Hgb Bld-mCnc 8g/dL Below low normal 845980064496 13.2 - 17.1 [facility] Eosinophil # Bld Auto 0.85s7792/uL Normal 371568789563 0 - 1 [facility] MCHC RBC Auto-mCnc 31.3g/dL Normal 640471705695 31 - 36 [facility] PMV Bld Auto 10.7fL Normal 096950630599 8 - 12 [facility] Basophils/leuk NFr Bld Auto 0.5% Normal 009730956248 0 - 1.4 [facility] Monocytes/leuk NFr Bld Auto 6.3% Normal 850482651006 4 - 12 [facility] RDW RBC Auto-Rto 13.4% Normal 534380738079 11 - 15 [facility] Monocytes # Bld Auto 0.89q2178/uL Normal 004078167446 0 - 1 [facility] Basophils # Bld Auto 0.82c9929/uL Normal 265930423341 0 - 1 [facility] Granulocytes # Bld Auto 0.99z6972/uL Normal 763938602006 0 - 0.3 [facility] Neutrophils # Bld Auto 6.59n5028/uL Normal 716004010453 2 - 7.6 [facility] Hct VFr Bld Auto 25.6% Below low normal 963132714082 38. 5 - 50 [facility] Lymphocytes/leuk NFr Bld Auto 16.2% Below low normal 518429853340 17 - 50 [facility] Lymphocytes # Bld Auto 1.39s3053/uL Normal 754683774995 0.6 - 3.7 [facility] nRBC/100 WBC Bld Auto-Rto 0% Normal 542274763328 0 - 1 [facility] RBC # Bld Auto 2.65M/uL Below low normal 451435082724 4 - 6 [facility] Neutrophils/leuk NFr Bld Auto 73.3% Above high normal 536177309980 39 - 72 [facility] Eosinophil/leuk NFr Bld Auto 2.8% Normal 371634605635 0 - 5 [facility] Granulocytes/leuk NFr Bld Auto 0.9% Normal 176659134054 0 - 1 [facility] WBC # Bld Auto 8.0h4901/uL Normal 406907982027 4 - 11 [facility] nRBC # Bld Auto 1i1037/uL Normal 860411881169 0 - 1 [facility] MCV RBC Auto 96.6fL Normal 885878050102 80 - 100 [facility] MCH RBC Qn Auto 30.2pg Normal 740798164079 27 - 33 [facility] Platelet # Bld Auto 612q7103/uL Above high normal 0060721733 27 150 - 420 [facility] Lipase SerPl-cCnc 91U/L Above high normal 093269136379 1 1 - 55 [facility] NT-proBNP SerPl-mCnc 122pg/mL Normal 502412159999 - 125 [facility] Procalcitonin SerPl-mCnc 0.13ng/mL Normal 785898226740 - [facility] BKR CALCIUM OXALATE CRYSTALS, UA Rare Abnormal 848686926581 - [facility] Bacteria # Ur Auto Rare Normal 439143794246 - [facility] RBC #/area UrnS Auto 1/HPF Normal 484889384217 0 - 2 [facility] WBC #/area UrnS Auto 1/HPF Normal 871174298796 0 - 5 [facility] Glucose Ur Strip.auto-mCnc Negative Normal [id number] - [facility] Color Ur Auto Yellow Normal 024847798656 - [facility] Hgb Ur Ql Strip.auto Negative Normal 475365810718 - [facility] Ketones Ur Strip.auto-mCnc Negative Normal [id number] - [facility] Prot Ur Strip.auto-mCnc Trace Normal 787656439317 - [facility] Bilirub Ur Ql Strip.auto 1+ Abnormal 726231423319 - [facility] WBC # Ur Strip Negative Normal 750508745320 - [facility] Nitrite Ur Ql Strip.auto Negative Normal 210235578327 - [facility] Clarity Ur Refract.auto Cloudy Abnormal 469334250387 - [facility] pH Ur Strip.auto 6.5 Normal 578546949219 5.5 - 7.5 [facility] Urobilinogen Ur Strip-mCnc 8mg/dL Above high normal 201391155850 - [facility] Sp Gr Ur Refract.auto 1.031 Above high normal 956761939214 1.005 - 1.03 [facility] B[facility] VENT MODE (ARTERIAL BG [facility]ING[facility] QUESTION) AC/VC Normal 422329721205 [facility] B[facility] OXYGEN MODE (ARTERIAL BG [facility] QUESTION) Ventilator Normal 100844997374 [facility] B[facility] SP02 (ARTERIAL BG [place] QUESTION) 91% Normal 530938708619 [facility] pCO2 BldA 44mmHg Normal 066449945044 32 - 48 [facility] HCO3 std BldA-sCnc 25.9mmol/L Normal 491006258093 21 - 28 [facility] B[facility] FIO2 (ARTERIAL BG [place] QUESTION) 60% Normal 733834227673 [facility] pH BldA 7.4units Normal 801389639821 7.35 - 7.45 [facility] TEMPERATURE (ARTERIAL BG [facility]INGO QUESTION) 101.1Fahrenheit Normal 549775607678 [facility] pO2 BldA 75mmHg Below low normal 944035838270 83 - 108 [facility] SaO2 % BldA 92% Below low normal 305401381236 94 - 98 [facility] BKR ACTUAL RESPIRATORY RATE (ARTERIAL BG [place]INGO QUESTION) 18breaths/min Normal 425479154796 [facility] Base excess std BldA Calc-sCnc 2mmol/L Normal 967595934293 - [facility] BUN SerPl-mCnc 25mg/dL Above high normal 957716723157 6 - 20 [facility] Creat SerPl-mCnc 0.75mg/dL Normal 201033445035 0.4 - 1.3 [facility] Anion Gap3 SerPl-sCnc 13 Normal 231824526026 7 - 17 [facility] GFR/BSA.pred SerPlBld LYW-LMG-FcXWcz 60mL/min/1.73m2 Normal 191953277465 - [facility] HCO3 SerPl-sCnc 23mmol/L Normal 982678116590 20 - 30 [facility] Glucose SerPl-mCnc 176mg/dL Above high normal 210678519745 70 - 100 [facility] BUN/Creat SerPl 33.3 Above high normal 303448626694 8 - 23 [facility] Chloride SerPl-sCnc 108mmol/L Above high normal 753734193675 98 - 107 [facility] Calcium SerPl-mCnc 8.8mg/dL Normal 944933921890 8.8 - 10.2 [facility] Sodium SerPl-sCnc 144mmol/L Normal 002640291672 136 - 144 [facility] Potassium SerPl-sCnc 3.6mmol/L Normal 614434435110 3.3 - 5.3 [facility] Trigl SerPl-mCnc 290mg/dL Above high normal 023192809859 - [facility] Magnesium SerPl-mCnc 2mg/dL Normal 231285630566 1.7 - 2.4 [facility] Phosphate SerPl-mCnc 3.5mg/dL Normal 542758299947 2.2 - 4.5 [facility] B[facility] ABO GROUPING O Normal 246204256914 [facility] ANTIBODY SCREEN NEG Normal 823417837728 [facility] B[facility] RH TYPE POS Normal 871311219959 [facility] INR PPP 1.03 Normal 330112202333 0.86 - 1.12 [facility] Prothrombin time 11.4seconds Normal 322835497754 9.6 - 12.3 [facility] aPTT PPP 38seconds Above high normal 552085079461 23 - 31.4 [facility] Hgb Bld-mCnc 8g/dL Below low normal 399593513722 13.2 - 17.1 [facility] Eosinophil # Bld Auto 0.98j3909/uL Normal 828876809618 0 - 1 [facility] MCHC RBC Auto-mCnc 32.3g/dL Normal 700486358899 31 - 36 [facility] PMV Bld Auto 10.8fL Normal 365610018659 8 - 12 [facility] Basophils/leuk NFr Bld Auto 0.7% Normal 961621253562 0 - 1.4 [facility] Monocytes/leuk NFr Bld Auto 9% Normal 630741754473 4 - 12 [facility] RDW RBC Auto-Rto 13.5% Normal 863693923021 11 - 15 [facility] Monocytes # Bld Auto 0.22y3369/uL Normal 496163691270 0 - 1 [facility] Basophils # Bld Auto 0.24d4125/uL Normal 426731748165 0 - 1 [facility] Imm Granulocytes # Bld Auto 0.81w8974/uL Normal 348756449382 0 - 0.3 [facility] Neutrophils # Bld Auto 4.63q7956/uL Normal 225986987345 2 - 7.6 [facility] Hct VFr Bld Auto 24.8% Below low normal 373663603909 38. 5 - 50 [facility] Lymphocytes/leuk NFr Bld Auto 22.9% Normal 327937513814 17 - 50 [facility] Lymphocytes # Bld Auto 1.79o3553/uL Normal 016148557048 0.6 - 3.7 [facility] nRBC/100 WBC Bld Auto-Rto 0% Normal 624741934563 0 - 1 [facility] RBC # Bld Auto 2.55M/uL Below low normal 583877398453 4 - 6 [facility] Neutrophils/leuk NFr Bld Auto 62.6% Normal 897933068009 39 - 72 [facility] Eosinophil/leuk NFr Bld Auto 3.6% Normal 333954889898 0 - 5 [facility] Granulocytes/leuk NFr Bld Auto 1.2% Above high normal 576242253622 0 - 1 [facility] WBC # Bld Auto 7.0g3694/uL Normal [id number] 4 - 11 [facility] nRBC # Bld Auto 2h5345/uL Normal 812663761913 0 - 1 [facility] MCV RBC Auto 97.3fL Normal 994130858508 80 - 100 [facility] MCH RBC Qn Auto 31.4pg Normal 236357832992 27 - 33 [facility] Platelet # Bld Auto 803o8804/uL Above high normal 2348133806 59 150 - 420 [facility] BUN SerPl-mCnc 25mg/dL Above high normal 482482331178 6 - 20 [facility] Creat SerPl-mCnc 0.76mg/dL Normal 320574449393 0.4 - 1.3 [facility] Anion Gap3 SerPl-sCnc 11 Normal [id number] 7 - 17 [facility] GFR/BSA.pred SerPlBld RCB-KCP-QlQHjc 60mL/min/1.73m2 Normal 453348962335 - [facility] HCO3 SerPl-sCnc 26mmol/L Normal 096550840466 20 - 30 [facility] Glucose SerPl-mCnc 172mg/dL Above high normal 108058784540 70 - 100 [facility] BUN/Creat SerPl 32.9 Above high normal 688057391361 8 - 23 [facility] Chloride SerPl-sCnc 109mmol/L Above high normal 201911798138 98 - 107 [facility] Calcium SerPl-mCnc 8.8mg/dL Normal 039855591176 8.8 - 10.2 [facility] Sodium SerPl-sCnc 146mmol/L Above high normal 663083834989 1 36 - 144 [facility] Potassium SerPl-sCnc 3.1mmol/L Below low normal 956050937030 3.3 - 5.3 [facility] Magnesium SerPl-mCnc 2.2mg/dL Normal 798919044314 1.7 - 2.4 [facility] Phosphate SerPl-mCnc 2.7mg/dL Normal 080544006460 2.2 - 4.5 [facility] INR PPP 1.01 Normal 660364008266 0.86 - 1.12 [facility] Prothrombin time 11.2seconds Normal 859883307093 9.6 - 12.3 [facility] aPTT PPP 37.3seconds Above high normal 408861297055 23 - 31 .4 [facility] Hgb Bld-mCnc 8.2g/dL Below low normal 553777740824 13.2 - 17.1 [facility] Eosinophil # Bld Auto 0.2k2649/uL Normal 687420747491 0 - 1 [facility] MCHC RBC Auto-mCnc 32.9g/dL Normal 161345405000 31 - 36 [facility] PMV Bld Auto 10.6fL Normal 094079048333 8 - 12 [facility] Basophils/leuk NFr Bld Auto 0.5% Normal 237052722356 0 - 1.4 [facility] Monocytes/leuk NFr Bld Auto 8.8% Normal 108729199007 4 - 12 [facility] RDW RBC Auto-Rto 13.2% Normal 537691839722 11 - 15 [facility] Monocytes # Bld Auto 0.36n2698/uL Normal 979613657195 0 - 1 [facility] Basophils # Bld Auto 0.96h4967/uL Normal 751253954264 0 - 1 [facility] Imm Granulocytes # Bld Auto 0.72m3130/uL Normal 472281056948 0 - 0.3 [facility] Neutrophils # Bld Auto 6.38z8378/uL Normal 591013583279 2 - 7.6 [facility] Hct VFr Bld Auto 24.9% Below low normal 854356909372 38. 5 - 50 [facility] Lymphocytes/leuk NFr Bld Auto 17.1% Normal 351129798004 17 - 50 [facility] Lymphocytes # Bld Auto 1.26c9155/uL Normal 709940482034 0.6 - 3.7 [facility] nRBC/100 WBC Bld Auto-Rto 0.3% Normal 253574190054 0 - 1 [facility] RBC # Bld Auto 2.61M/uL Below low normal 756971571974 4 - 6 [facility] Neutrophils/leuk NFr Bld Auto 69.8% Normal 014784462379 39 - 72 [facility] Eosinophil/leuk NFr Bld Auto 2.3% Normal 642391774425 0 - 5 [facility] Granulocytes/leuk NFr Bld Auto 1.5% Above high normal 586688638444 0 - 1 [facility] WBC # Bld Auto 8.2j7680/uL Normal 987368605367 4 - 11 [facility] nRBC # Bld Auto 0.69l8467/uL Normal 601486774241 0 - 1 [facility] MCV RBC Auto 95.4fL Normal 048317281467 80 - 100 [facility] MCH RBC Qn Auto 31.4pg Normal 785597906781 27 - 33 [facility] Platelet # Bld Auto 354p1748/uL Above high normal 3859841034 09 150 - 420 [facility] Magnesium SerPl-mCnc 2.4mg/dL Normal 997740268032 1.7 - 2.4 [facility] Phosphate SerPl-mCnc 3.1mg/dL Normal 108892572854 2.2 - 4.5 [facility] BUN SerPl-mCnc 28mg/dL Above high normal 831339399917 6 - 20 [facility] Creat SerPl-mCnc 0.77mg/dL Normal 343872066635 0.4 - 1.3 [facility] Anion Gap3 SerPl-sCnc 10 Normal 795756031318 7 - 17 [facility] GFR/BSA.pred SerPlBld MDQ-ZUP-NnRIji 60mL/min/1.73m2 Normal 153781022399 - [facility] HCO3 SerPl-sCnc 27mmol/L Normal 638064925664 20 - 30 [facility] Glucose SerPl-mCnc 176mg/dL Above high normal 776143172995 70 - 100 [facility] BUN/Creat SerPl 36.4 Above high normal 666589437898 8 - 23 [facility] Chloride SerPl-sCnc 104mmol/L Normal 669085484067 98 - 10 7 [facility] Calcium SerPl-mCnc 8.5mg/dL Below low normal 39103512927 9 8.8 - 10.2 [facility] Sodium SerPl-sCnc 141mmol/L Normal 063489648817 136 - 144 [facility] Potassium SerPl-sCnc 3.4mmol/L Normal 480600703175 3.3 - 5.3 [facility] Trigl SerPl-mCnc 390mg/dL Above high normal 029878619745 - [facility] INR PPP 0.96 Normal 668778297511 0.86 - 1.12 [facility] Prothrombin time 10.7seconds Normal 853252173891 9.6 - 12.3 [facility] aPTT PPP 34.7seconds Above high normal 889978283525 23 - 31 .4 [facility] Hgb Bld-mCnc 8.2g/dL Below low normal 478801563158 13.2 - 17.1 [facility] Eosinophil # Bld Auto 0.99i9684/uL Normal 052585201601 0 - 1 [facility] MCHC RBC Auto-mCnc 31.8g/dL Normal 729822823601 31 - 36 [facility] PMV Bld Auto 11fL Normal 609878060203 8 - 12 [facility] Basophils/leuk NFr Bld Auto 0.6% Normal 588742271834 0 - 1.4 [facility] Monocytes/leuk NFr Bld Auto 8.6% Normal 527949199789 4 - 12 [facility] RDW RBC Auto-Rto 13.2% Normal 914609730456 11 - 15 [facility] Monocytes # Bld Auto 0.03s3434/uL Normal 245931355896 0 - 1 [facility] Basophils # Bld Auto 0.97m4809/uL Normal 617400653248 0 - 1 [facility] Imm Granulocytes # Bld Auto 0.82m2838/uL Normal 093834034452 0 - 0.3 [facility] Neutrophils # Bld Auto 5.48y0368/uL Normal 885253000343 2 - 7.6 [facility] Hct VFr Bld Auto 25.8% Below low normal 267318690267 38. 5 - 50 [facility] Lymphocytes/leuk NFr Bld Auto 15.8% Below low normal 503134815831 17 - 50 [facility] Lymphocytes # Bld Auto 1.04y6723/uL Normal 532972904795 0.6 - 3.7 [facility] nRBC/100 WBC Bld Auto-Rto 0.3% Normal 441159929030 0 - 1 [facility] RBC # Bld Auto 2.64M/uL Below low normal 285151805648 4 - 6 [facility] Neutrophils/leuk NFr Bld Auto 71.5% Normal 459936993071 39 - 72 [facility] Eosinophil/leuk NFr Bld Auto 1.9% Normal 580969309785 0 - 5 [facility] Imm Granulocytes/leuk NFr Bld Auto 1.6% Above high normal 848011762665 0 - 1 [facility] WBC # Bld Auto 7.3a2336/uL Normal 561465206655 4 - 11 [facility] nRBC # Bld Auto 0.45t8906/uL Normal 282545791457 0 - 1 [facility] MCV RBC Auto 97.7fL Normal 829083201175 80 - 100 [facility] MCH RBC Qn Auto 31.1pg Normal 428805782137 27 - 33 [facility] Platelet # Bld Auto 358r4984/uL Above high normal 9267687776 23 150 - 420 [facility] BUN SerPl-mCnc 29mg/dL Above high normal 470411187314 6 - 20 [facility] Creat SerPl-mCnc 0.77mg/dL Normal 194787921885 0.4 - 1.3 [facility] Anion Gap3 SerPl-sCnc 13 Normal 295966056599 7 - 17 [facility] GFR/BSA.pred SerPlBld BMJ-TER-CfAIkb 60mL/min/1.73m2 Normal 605200582958 - [facility] HCO3 SerPl-sCnc 27mmol/L Normal 038890550574 20 - 30 [facility] Glucose SerPl-mCnc 170mg/dL Above high normal 066150238494 70 - 100 [facility] BUN/Creat SerPl 37.7 Above high normal 228837291139 8 - 23 [facility] Chloride SerPl-sCnc 106mmol/L Normal 237987807300 98 - 10 7 [facility] Calcium SerPl-mCnc 8.4mg/dL Below low normal 75520482039 4 8.8 - 10.2 [facility] Sodium SerPl-sCnc 146mmol/L Above high normal 792510074889 1 36 - 144 [facility] Potassium SerPl-sCnc 3.7mmol/L Normal 791562892267 3.3 - 5.3 [facility] Phosphate SerPl-mCnc 3.8mg/dL Normal 326769316586 2.2 - 4.5 [facility] Magnesium SerPl-mCnc 2.3mg/dL Normal 504692293639 1.7 - 2.4 [facility] BKR ABO GROUPING O Normal [facility] BKR ANTIBODY SCREEN NEG Normal [facility] BKR RH TYPE POS Normal [facility] Phosphate SerPl-mCnc 3.1mg/dL Normal 205059312287 2.2 - 4.5 [facility] BUN SerPl-mCnc 30mg/dL Above high normal 429098047538 6 - 20 [facility] Creat SerPl-mCnc 0.7mg/dL Normal 451533947033 0.4 - 1.3 [facility] Anion Gap3 SerPl-sCnc 12 Normal 192828227139 7 - 17 [facility] GFR/BSA.pred SerPlBld PVY-RFC-VgUDkv 60mL/min/1.73m2 Normal 770697340323 - [facility] HCO3 SerPl-sCnc 28mmol/L Normal 20 - 30 [facility] Glucose SerPl-mCnc 149mg/dL Above high normal 70 - 100 [facility] BUN/Creat SerPl 42.9 Above high normal 354495707224 8 - 23 [facility] Chloride SerPl-sCnc 105mmol/L Normal 017764135050 98 - 10 7 [facility] Calcium SerPl-mCnc 8.9mg/dL Normal 309177660603 8.8 - 10.2 [facility] Sodium SerPl-sCnc 145mmol/L Above high normal 049622846172 1 36 - 144 [facility] Potassium SerPl-sCnc 2.9mmol/L Below low normal 482942405764 3.3 - 5.3 [facility] Magnesium SerPl-mCnc 2.4mg/dL Normal 048414372542 1.7 - 2.4 [facility] INR PPP 0.98 Normal 743866032376 0.86 - 1.12 [facility] Prothrombin time 10.9seconds Normal 725568011526 9.6 - 12.3 [facility] aPTT PPP 35seconds Above high normal 775252391158 23 - 31.4 [facility] Hgb Bld-mCnc 8.1g/dL Below low normal 709218016539 13.2 - 17.1 [facility] Eosinophil # Bld Auto 0.02e8320/uL Normal 546313780127 0 - 1 [facility] MCHC RBC Auto-mCnc 34g/dL Normal 293615865316 31 - 36 [facility] PMV Bld Auto 11.2fL Normal 765093631337 8 - 12 [facility] Basophils/leuk NFr Bld Auto 0.4% Normal 196268255493 0 - 1.4 [facility] Monocytes/leuk NFr Bld Auto 7.5% Normal 606784996495 4 - 12 [facility] RDW RBC Auto-Rto 13% Normal 111055823352 11 - 15 [facility] Monocytes # Bld Auto 0.98o3084/uL Normal [id number] 0 - 1 [facility] Basophils # Bld Auto 0.32u6098/uL Normal [id number] 0 - 1 [facility] Imm Granulocytes # Bld Auto 0.49u9441/uL Normal [id number] 0 - 0.3 [facility] Neutrophils # Bld Auto 5.94x2600/uL Normal [id number] 2 - 7.6 [facility] Hct VFr Bld Auto 23.8% Below low normal 476523514715 38. 5 - 50 [facility] Lymphocytes/leuk NFr Bld Auto 17.6% Normal [id number] 17 - 50 [facility] Lymphocytes # Bld Auto 1.24t6866/uL Normal [id number] 0.6 - 3.7 [facility] nRBC/100 WBC Bld Auto-Rto 0.2% Normal 361044659090 0 - 1 [facility] RBC # Bld Auto 2.55M/uL Below low normal 522910184802 4 - 6 [facility] Neutrophils/leuk NFr Bld Auto 71.4% Normal 941357935251 39 - 72 [facility] Eosinophil/leuk NFr Bld Auto 1.8% Normal 221881901100 0 - 5 [facility] Imm Granulocytes/leuk NFr Bld Auto 1.3% Above high normal [id number] 0 - 1 [facility] WBC # Bld Auto 8.4m2005/uL Normal [id number] 4 - 11 [facility] nRBC # Bld Auto 0.34k2412/uL Normal [id number] 0 - 1 [facility] MCV RBC Auto 93.3fL Normal [id number] 80 - 100 [facility] MCH RBC Qn Auto 31.8pg Normal 855036369966 27 - 33 [facility] Platelet # Bld Auto 476r7839/uL Above high normal 7210691386 09 150 - 420 [facility] BUN SerPl-mCnc 23mg/dL Above high normal 165886346176 6 - 20 [facility] Creat SerPl-mCnc 0.66mg/dL Normal [id number] 0.4 - 1.3 [facility] Anion Gap3 SerPl-sCnc 13 Normal [id number] 7 - 17 [facility] GFR/BSA.pred SerPlBld GPR-[facility]-InCTyp 60mL/min/1.73m2 Normal [id number] - [facility] HCO3 SerPl-sCnc 27mmol/L Normal [id number] 20 - 30 [facility] Glucose SerPl-mCnc 151mg/dL Above high normal 576886031651 70 - 100 [facility] BUN/Creat SerPl 34.8 Above high normal 281491176659 8 - 23 [facility] Chloride SerPl-sCnc 104mmol/L Normal [id number] 98 - 10 7 [facility] Calcium SerPl-mCnc 9mg/dL Normal 025525590720 8.8 - 10.2 [facility] Sodium SerPl-sCnc 144mmol/L Normal 101694747730 136 - 144 [facility] Potassium SerPl-sCnc 3.7mmol/L Normal [id number] 3.3 - 5.3 [facility] Phosphate SerPl-mCnc 3.1mg/dL Normal 721026666483 2.2 - 4.5 [facility] Magnesium SerPl-mCnc 2.1mg/dL Normal 450163519682 1.7 - 2.4 [facility] Hgb Bld-mCnc 8.9g/dL Below low normal 947655001283 13.2 - 17.1 [facility] Eosinophil # Bld Auto 0.78m0629/uL Normal [id number] 0 - 1 [facility] MCHC RBC Auto-mCnc 33.6g/dL Normal [id number] 31 - 36 [facility] PMV Bld Auto 11.7fL Normal 804963840017 8 - 12 [facility] Basophils/leuk NFr Bld Auto 0.5% Normal 604721282293 0 - 1.4 [facility] Monocytes/leuk NFr Bld Auto 7.6% Normal [id number] 4 - 12 [facility] RDW RBC Auto-Rto 12.8% Normal 892494979649 11 - 15 [facility] Monocytes # Bld Auto 0.82e0264/uL Normal 177855264212 0 - 1 [facility] Basophils # Bld Auto 0.68w7730/uL Normal 636621549887 0 - 1 [facility] Imm Granulocytes # Bld Auto 0.76p3589/uL Normal 931947471405 0 - 0.3 [facility] Neutrophils # Bld Auto 6.43i3389/uL Normal 034832864165 2 - 7.6 [facility] Hct VFr Bld Auto 26.5% Below low normal 983826154974 38. 5 - 50 [facility] Lymphocytes/leuk NFr Bld Auto 16.2% Below low normal 256193697923 17 - 50 [facility] Lymphocytes # Bld Auto 1.23f8751/uL Normal 918624347811 0.6 - 3.7 [facility] nRBC/100 WBC Bld Auto-Rto 0.2% Normal 756108465190 0 - 1 [facility] RBC # Bld Auto 2.8M/uL Below low normal 567584990680 4 - 6 [facility] Neutrophils/leuk NFr Bld Auto 72.1% Above high normal 997270815276 39 - 72 [facility] Eosinophil/leuk NFr Bld Auto 2.3% Normal 686505505630 0 - 5 [facility] Imm Granulocytes/leuk NFr Bld Auto 1.3% Above high normal 914014228536 0 - 1 [facility] WBC # Bld Auto 9.0x8587/uL Normal [id number] 4 - 11 [facility] nRBC # Bld Auto 0.63w5348/uL Normal [id number] 0 - 1 [facility] MCV RBC Auto 94.6fL Normal 641389276778 80 - 100 [facility] MCH RBC Qn Auto 31.8pg Normal 565849007974 27 - 33 [facility] Platelet # Bld Auto 690q1464/uL Above high normal 0467854812 02 150 - 420 [facility] Phosphate SerPl-mCnc 3.8mg/dL Normal [id number] 2.2 - 4.5 [facility] Magnesium SerPl-mCnc 2.2mg/dL Normal 782615953647 1.7 - 2.4 [facility] BUN SerPl-mCnc 23mg/dL Above high normal 573699940208 6 - 20 [facility] Creat SerPl-mCnc 0.65mg/dL Normal [id number] 0.4 - 1.3 [facility] Anion Gap3 SerPl-sCnc 13 Normal [id number] 7 - 17 [facility] GFR/BSA.pred SerPlBld ZMH-KMD-AbQPyk 60mL/min/1.73m2 Normal 504626339977 - [facility] HCO3 SerPl-sCnc 23mmol/L Normal 512600798862 20 - 30 [facility] Glucose SerPl-mCnc 171mg/dL Above high normal 982107353881 70 - 100 [facility] BUN/Creat SerPl 35.4 Above high normal 021429517157 8 - 23 [facility] Chloride SerPl-sCnc 104mmol/L Normal 555700679345 98 - 10 7 [facility] Calcium SerPl-mCnc 8.8mg/dL Normal 689178013366 8.8 - 10.2 [facility] Sodium SerPl-sCnc 140mmol/L Normal 963456472990 136 - 144 [facility] Potassium SerPl-sCnc 3.7mmol/L Normal 826094982811 3.3 - 5.3 [facility] Hgb Bld-mCnc 8.7g/dL Below low normal 654977497390 13.2 - 17.1 [facility] Eosinophil # Bld Auto 0.73q0050/uL Normal [id number] 0 - 1 [facility] MCHC RBC Auto-mCnc 32.5g/dL Normal [id number] 31 - 36 [facility] PMV Bld Auto 11.8fL Normal 122367280591 8 - 12 [facility] Basophils/leuk NFr Bld Auto 0.4% Normal [id number] 0 - 1.4 [facility] Monocytes/leuk NFr Bld Auto 9.2% Normal 743847380102 4 - 12 [facility] RDW RBC Auto-Rto 12.7% Normal [id number] 11 - 15 [facility] Monocytes # Bld Auto 0.71h2096/uL Normal [id number] 0 - 1 [facility] Basophils # Bld Auto 0.99l5262/uL Normal 558350371730 0 - 1 [facility] Imm Granulocytes # Bld Auto 0.70n0977/uL Normal 030525912646 0 - 0.3 [facility] Neutrophils # Bld Auto 5.85n7622/uL Normal 889854303040 2 - 7.6 [facility] Hct VFr Bld Auto 26.8% Below low normal 271936042585 38. 5 - 50 [facility] Lymphocytes/leuk NFr Bld Auto 14.6% Below low normal [id number] 17 - 50 [facility] Lymph[facility] # Bld Auto 1.17m6163/uL Normal 880704327831 0.6 - 3.7 [facility] nRBC/100 WBC Bld Auto-Rto 0% Normal 275488986812 0 - 1 [facility] RBC # Bld Auto 2.79M/uL Below low normal 191159083312 4 - 6 [facility] Neutrophils/leuk NFr Bld Auto 71.1% Normal 033321373047 39 - 72 [facility] Eosinophil/leuk NFr Bld Auto 4% Normal [id number] 0 - 5 [facility] Granulocytes/leuk NFr Bld Auto 0.7% Normal 780437861298 0 - 1 [facility] WBC # Bld Auto 8.7v5275/uL Normal [id number] 4 - 11 [facility] nRBC # Bld Auto 1v3821/uL Normal [id number] 0 - 1 [facility] MCV RBC Auto 96.1fL Normal 888307788771 80 - 100 [facility] MCH RBC Qn Auto 31.2pg Normal [id number] 27 - 33 [facility] Platelet # Bld Auto 033b0578/uL Normal [id number] 150 - 420 [facility] pCO2 BldA 35mmHg Normal 716654259507 32 - 48 [facility] HCO3 std BldA-sCnc 24mmol/L Normal 21 - 28 [facility] pH BldA 7.45units Normal 7.35 - 7.45 [facility] B[facility] TEMPERATURE (ARTERIAL BG DOMINGO QUESTION) 98.1Fahrenheit Normal [facility] pO2 BldA 131mmHg Above high normal 83 - 108 [facility] SaO2 % BldA 99% Above high normal 94 - 98 [facility] Base excess std BldA Calc-sCnc 1mmol/L Normal - [facility] ABO GROUPING O Normal [facility] ANTIBODY SCREEN NEG Normal [facility] RH TYPE POS Normal [facility] Phosphate SerPl-mCnc 3.7mg/dL Normal [id number] 2.2 - 4.5 [facility] BUN SerPl-mCnc 23mg/dL Above high normal 6 - 20 [facility] Creat SerPl-mCnc 0.65mg/dL Normal 0.4 - 1.3 [facility] Anion Gap3 SerPl-sCnc 11 Normal 7 - 17 [facility] GFR/BSA.pred SerPlBld TPF-KKQ-GnKLvx 60mL/min/1.73m2 Normal - [facility] HCO3 SerPl-sCnc 25mmol/L Normal [id number] 20 - 30 [facility] Glucose SerPl-mCnc 164mg/dL Above high normal 161126978322 70 - 100 [facility] BUN/Creat SerPl 35.4 Above high normal 359696733390 8 - 23 [facility] Chloride SerPl-sCnc 107mmol/L Normal 849372867407 98 - 10 7 [facility] Calcium SerPl-mCnc 8.3mg/dL Below low normal 03228316666 3 8.8 - 10.2 [facility] Sodium SerPl-sCnc 143mmol/L Normal 272028576690 136 - 144 [facility] Potassium SerPl-sCnc 3.3mmol/L Normal 122769211010 3.3 - 5.3 [facility] Magnesium SerPl-mCnc 2.1mg/dL Normal 712562625758 1.7 - 2.4 [facility] Hgb Bld-mCnc 9.1g/dL Below low normal 112112697669 13.2 - 17.1 [facility] Eosinophil # Bld Auto 0.41l4588/uL Normal 789363791328 0 - 1 [facility] MCHC RBC Auto-mCnc 32.5g/dL Normal 645864812900 31 - 36 [facility] PMV Bld Auto 11.6fL Normal [id number] 8 - 12 [facility] Basophils/leuk NFr Bld Auto 0.4% Normal 119651092289 0 - 1.4 [facility] Monocytes/leuk NFr Bld Auto 10.5% Normal [id number] 4 - 12 [facility] RDW RBC Auto-Rto 12.8% Normal 037312097780 11 - 15 [facility] # Bld Auto 0.89s3527/uL Normal 466093465597 0 - 1 [facility] Basophils # Bld Auto 0.66g3327/uL Normal 622726530951 0 - 1 [facility] Granulocytes # Bld Auto 0.76a0324/uL Normal 456460357607 0 - 0.3 [facility] Neutrophils # Bld Auto 6.0n6989/uL Normal 284628902023 2 - 7.6 [facility] Hct VFr Bld Auto 28% Below low normal 275449572563 38. 5 - 50 [facility] Lymphocytes/leuk NFr Bld Auto 16.5% Below low normal 008747151632 17 - 50 [facility] Lymph[facility] # Bld Auto 1.42z0621/uL Normal 478617833867 0.6 - 3.7 [facility] nRBC/100 WBC Bld Auto-Rto 0% Normal 446368080670 0 - 1 [facility] RBC # Bld Auto 2.93M/uL Below low normal 640231543653 4 - 6 [facility] Neutrophils/leuk NFr Bld Auto 69.4% Normal 721616308703 39 - 72 [facility] Eosinophil/leuk NFr Bld Auto 2.6% Normal [id number] 0 - 5 [facility] Granulocytes/leuk NFr Bld Auto 0.6% Normal [id number] 0 - 1 [facility] WBC # Bld Auto 9.2t2861/uL Normal [id number] 4 - 11 [facility] nRBC # Bld Auto 9f1624/uL Normal 134555188923 0 - 1 [facility] MCV RBC Auto 95.6fL Normal 424880858566 80 - 100 [facility] MCH RBC Qn Auto 31.1pg Normal [id number] 27 - 33 [facility] Platelet # Bld Auto 474y7858/uL Normal [id number] 150 - 420 [facility] Phosphate SerPl-mCnc 2mg/dL Below low normal 425667472968 2.2 - 4.5 [facility] Magnesium SerPl-mCnc 2mg/dL Normal [id number] 1.7 - 2.4 [facility] BUN SerPl-mCnc 27mg/dL Above high normal 582230516112 6 - 20 [facility] Creat SerPl-mCnc 0.73mg/dL Normal 379986956846 0.4 - 1.3 [facility] Anion Gap3 SerPl-sCnc 12 Normal 021824688390 7 - 17 [facility] GFR/BSA.pred SerPlBld CMB-OSQ-QhUVox 60mL/min/1.73m2 Normal 893639199698 - [facility] HCO3 SerPl-sCnc 26mmol/L Normal 602968044610 20 - 30 [facility] Glucose SerPl-mCnc 230mg/dL Above high normal 461738951485 70 - 100 [facility] BUN/Creat SerPl 37 Above high normal 023723067306 8 - 23 [facility] Chloride SerPl-sCnc 107mmol/L Normal 207533793040 98 - 10 7 [facility] Calcium SerPl-mCnc 8.4mg/dL Below low normal 68185983119 4 8.8 - 10.2 [facility] Sodium SerPl-sCnc 145mmol/L Above high normal 711415962213 1 36 - 144 [facility] Potassium SerPl-sCnc 3.6mmol/L Normal [id number] 3.3 - 5.3 [facility] Hgb Bld-mCnc 9.6g/dL Below low normal 064297321044 13.2 - 17.1 [facility] Eosinophil # Bld Auto 0.35k6023/uL Normal 730798674268 0 - 1 [facility] MCHC RBC Auto-mCnc 34.2g/dL Normal 134343296576 31 - 36 [facility] PMV Bld Auto 11.6fL Normal 187861760810 8 - 12 [facility] Basophils/leuk NFr Bld Auto 0.3% Normal 065547017926 0 - 1.4 [facility] Monocytes/leuk NFr Bld Auto 10.9% Normal [id number] 4 - 12 [facility] RDW RBC Auto-Rto 12.6% Normal [id number] 11 - 15 [facility] # Bld Auto 1.95h8229/uL Above high normal 558521376483 0 - 1 [facility] Basophils # Bld Auto 0.86t1620/uL Normal 731092182797 0 - 1 [facility] Granulocytes # Bld Auto 0.36b7450/uL Normal 957404597953 0 - 0.3 [facility] Neutrophils # Bld Auto 7.5m4775/uL Above high normal 541322860191 2 - 7.6 [facility] Hct VFr Bld Auto 28.1% Below low normal 562076655050 38. 5 - 50 [facility] Lymphocytes/leuk NFr Bld Auto 12.8% Below low normal [id number] 17 - 50 [facility] Lymph[facility] # Bld Auto 1.48h0735/uL Normal [id number] 0.6 - 3.7 [facility] nRBC/100 WBC Bld Auto-Rto 0% Normal 450353067498 0 - 1 [facility] RBC # Bld Auto 3.01M/uL Below low normal 159679750823 4 - 6 [facility] Neutrophils/leuk NFr Bld Auto 74.4% Above high normal 303848659973 39 - 72 [facility] Eosinophil/leuk NFr Bld Auto 0.7% Normal 940223408690 0 - 5 [facility] Granulocytes/leuk NFr Bld Auto 0.9% Normal 221940153262 0 - 1 [facility] WBC # Bld Auto 10.8f1166/uL Normal 462608451715 4 - 11 [facility] nRBC # Bld Auto 6f6551/uL Normal 487886777178 0 - 1 [facility] MCV RBC Auto 93.4fL Normal [id number] 80 - 100 [facility] MCH RBC Qn Auto 31.9pg Normal [id number] 27 - 33 [facility] Platelet # Bld Auto 740a4905/uL Normal [id number] 150 - 420 [facility] Troponin T SerPl HS-mCnc -12ng/L Normal 434211771469 [facility] Troponin T SerPl HS-mCnc 9ng/L Normal 283652203325 [facility] INR PPP 0.98 Normal 985291759911 0.86 - 1.12 [facility] Prothrombin time 10.9seconds Normal 507999728430 9.6 - 12.3 [facility] aPTT PPP 35.3seconds Above high normal [id number] 23 - 31 .4 [facility] Troponin T SerPl HS-mCnc 35ng/L Above high normal 670189505972 - [facility] Prealb SerPl Neph-mCnc 16.6mg/dL Below low normal 315755416180 20 - 40 [facility] BUN SerPl-mCnc 31mg/dL Above high normal 494875674380 6 - 20 [facility] Creat SerPl-mCnc 0.69mg/dL Normal 400200297064 0.4 - 1.3 [facility] Anion Gap3 SerPl-sCnc 10 Normal [id number] 7 - 17 [facility] GFR/BSA.pred SerPlBld KHT-BCL-ZhEVaa 60mL/min/1.73m2 Normal 604306547511 - [facility] HCO3 SerPl-sCnc 29mmol/L Normal 430382698218 20 - 30 [facility] Glucose SerPl-mCnc 238mg/dL Above high normal 253262707616 70 - 100 [facility] BUN/Creat SerPl 44.9 Above high normal 516146784781 8 - 23 [facility] Chloride SerPl-sCnc 104mmol/L Normal 858587003409 98 - 10 7 [facility] Calcium SerPl-mCnc 8.8mg/dL Normal 545168684843 8.8 - 10.2 [facility] Sodium SerPl-sCnc 143mmol/L Normal 912113796456 136 - 144 [facility] Potassium SerPl-sCnc 3.8mmol/L Normal 588293620149 3.3 - 5.3 [facility] Magnesium SerPl-mCnc 2.3mg/dL Normal 384991001909 1.7 - 2.4 [facility] Phosphate SerPl-mCnc 3mg/dL Normal 907365003560 2.2 - 4.5 [facility] Lipase SerPl-cCnc 42U/L Normal [id number] 11 - 55 [facility] VENT MODE (ARTERIAL BG [place]INGO QUESTION) AC/VC Normal 644864694368 [facility] VENT SETTINGS (ARTERIAL BG [place]INGO QUESTION) Pressure Support Normal 850456486923 [facility] OXYGEN MODE (ARTERIAL BG [place]INGO QUESTION) Ventilator Normal 880931565315 [facility] SP02 (ARTERIAL BG DOMINGO QUESTION) 96% Normal 751702819204 [facility] pCO2 BldA 50mmHg Above high normal 434828715680 32 - 48 [facility] HCO3 std BldA-sCnc 31.1mmol/L Above high normal 909145717958 21 - 28 [facility] FIO2 (ARTERIAL BG DOMINGO QUESTION) 70% Normal [facility] pH BldA 7.42units Normal 456579776805 7.35 - 7.45 [facility] TEMPERATURE (ARTERIAL BG DOMINGO QUESTION) 101.8Fahrenheit Normal [facility] pO2 BldA 132mmHg Above high normal 981122731493 83 - 108 [facility] SaO2 % BldA 98% Normal 608818970175 94 - [address] Base excess std BldA Calc-sCnc 7mmol/L Above high normal 447837038970 - [facility] Hgb Bld-mCnc 9.8g/dL Below low normal 501385367076 13.2 - 17.1 [facility] Eosinophil # Bld Auto 0.85b0576/uL Normal 541501798400 0 - 1 [facility] MCHC RBC Auto-mCnc 32.7g/dL Normal 31 - 36 [facility] PMV Bld Auto 11.6fL Normal [id number] 8 - 12 [facility] Basophils/leuk NFr Bld Auto 0.2% Normal 498592229733 0 - 1.4 [facility] Monocytes/leuk NFr Bld Auto 9.5% Normal [id number] 4 - 12 [facility] RDW RBC Auto-Rto 12.4% Normal 11 - 15 [facility] Mon[facility] # Bld Auto 0.88t3289/uL Normal 122051942335 0 - 1 [facility] Basophils # Bld Auto 0.56c3470/uL Normal 092857856997 0 - 1 [facility] Granulocytes # Bld Auto 0.23h0954/uL Normal [id number] 0 - 0.3 [facility] Neutrophils # Bld Auto 7.00o1513/uL Normal 476195116017 2 - 7.6 [facility] Hct VFr Bld Auto 30% Below low normal 040343941886 38. 5 - 50 [facility] Lymphocytes/leuk NFr Bld Auto 10.9% Below low normal 830528107929 17 - 50 [facility] Lymphocytes # Bld Auto 1.21h5963/uL Normal 983553663831 0.6 - 3.7 [facility] nRBC/100 WBC Bld Auto-Rto 0% Normal [id number] 0 - 1 [facility] RBC # Bld Auto 3.11M/uL Below low normal 743809842305 4 - 6 [facility] Neutrophils/leuk NFr Bld Auto 77.7% Above high normal 620524099039 39 - 72 [facility] Eosinophil/leuk NFr Bld Auto 0.8% Normal 212307187639 0 - 5 [facility] Granulocytes/leuk NFr Bld Auto 0.9% Normal 770258113575 0 - 1 [facility] WBC # Bld Auto 9.8c5822/uL Normal 741644549830 4 - 11 [facility] nRBC # Bld Auto 6c5546/uL Normal [id number] 0 - 1 [facility] MCV RBC Auto 96.5fL Normal [id number] 80 - 100 [facility] MCH RBC Qn Auto 31.5pg Normal [id number] 27 - 33 [facility] Platelet # Bld Auto 020j1542/uL Normal [id number] 150 - 420 [facility] Trigl SerPl-mCnc 233mg/dL Above high normal 683631355053 - [facility] Lactate SerPl-sCnc 1.2mmol/L Normal 565517982357 0.5 - 2. 2 [facility] BKR OXYGEN MODE (ARTERIAL BG DOMINGO QUESTION) High Flow Nasal Cannula Normal 019691538886 [facility] SP02 (ARTERIAL BG DOMINGO QUESTION) 96% Normal 212237683301 [facility] pCO2 BldA 53mmHg Above high normal 779525669822 32 - 48 [facility] HCO3 std BldA-sCnc 32.2mmol/L Above high normal 175128109502 21 - 28 [facility] B[facility] FIO2 (ARTERIAL BG DOMINGO QUESTION) 100% Normal 403775621024 [facility] LITER FLOW (ARTERIAL BG DOMINGO QUESTION) 40L/min Normal 465389505581 [facility] pH BldA 7.41units Normal 472663612419 7.35 - 7.45 [facility] BKR TEMPERATURE (ARTERIAL BG DOMINGO QUESTION) 101.8Fahrenheit Normal 622733308150 [facility] pO2 BldA 123mmHg Above high normal 677755673089 83 - 108 [facility] SaO2 % BldA 98% Normal 035049569664 94 - [address] BKR ACTUAL RESPIRATORY RATE (ARTERIAL BG DOMINGO QUESTION) 17breaths/min Normal 611904388355 [facility] Base excess std BldA Calc-sCnc 7mmol/L Above high normal 465040135832 - [facility] Hgb Bld-mCnc 11.3g/dL Below low normal 585683833127 13.2 - 17.1 [facility] Eosinophil # Bld Auto 0.74j8126/uL Normal 141033766213 0 - 1 [facility] MCHC RBC Auto-mCnc 33.1g/dL Normal 654870797692 31 - 36 [facility] PMV Bld Auto 12fL Normal 292207726342 8 - 12 [facility] Basophils/leuk NFr Bld Auto 0.4% Normal 143076891459 0 - 1.4 [facility] Monocytes/leuk NFr Bld Auto 8.7% Normal 256219845706 4 - 12 [facility] RDW RBC Auto-Rto 12.4% Normal 973051446589 11 - 15 [facility] Mon[facility] # Bld Auto 0.38h4197/uL Normal 376949396099 0 - 1 [facility] Basophils # Bld Auto 0.90r2015/uL Normal 412352764661 0 - 1 [facility] Imm Granulocytes # Bld Auto 0.97m1312/uL Normal 683564975049 0 - 0.3 [facility] Neutrophils # Bld Auto 8.67d5824/uL Above high normal 942944969090 2 - 7.6 [facility] Hct VFr Bld Auto 34.1% Below low normal 030760985769 38. 5 - 50 [facility] Lymphocytes/leuk NFr Bld Auto 10.1% Below low normal [id number] 17 - 50 [facility] Lymphocytes # Bld Auto 1.00q8867/uL Normal 549547859314 0.6 - 3.7 [facility] nRBC/100 WBC Bld Auto-Rto 0% Normal 608619200620 0 - 1 [facility] RBC # Bld Auto 3.58M/uL Below low normal 548723262695 4 - 6 [facility] Neutrophils/leuk NFr Bld Auto 78.4% Above high normal 428003020282 39 - 72 [facility] Eosinophil/leuk NFr Bld Auto 1.2% Normal 168408045943 0 - 5 [facility] Imm Granulocytes/leuk NFr Bld Auto 1.2% Above high normal 151552750785 0 - 1 [facility] WBC # Bld Auto 11.6r1938/uL Above high normal 351326717155 4 - 11 [facility] nRBC # Bld Auto 9u9525/uL Normal 272179321281 0 - 1 [facility] MCV RBC Auto 95.3fL Normal 537904888111 80 - 100 [facility] MCH RBC Qn Auto 31.6pg Normal 011614478313 27 - 33 [facility] Platelet # Bld Auto 017i2050/uL Normal [id number] 150 - 420 [facility] Magnesium SerPl-mCnc 2.2mg/dL Normal 788115460510 1.7 - 2.4 [facility] Phosphate SerPl-mCnc 3mg/dL Normal 248256403336 2.2 - 4.5 [facility] BUN SerPl-mCnc 28mg/dL Above high normal 317197631218 6 - 20 [facility] Creat SerPl-mCnc 0.67mg/dL Normal [id number] 0.4 - 1.3 [facility] Anion Gap3 SerPl-sCnc 11 Normal [id number] 7 - 17 [facility] GFR/BSA.pred SerPlBld IDO-UFW-UxPEcm 60mL/min/1.73m2 Normal 040170099860 - [facility] HCO3 SerPl-sCnc 30mmol/L Normal 323120311818 20 - 30 [facility] Glucose SerPl-mCnc 219mg/dL Above high normal 406393650847 70 - 100 [facility] BUN/Creat SerPl 41.8 Above high normal 886872652909 8 - 23 [facility] Chloride SerPl-sCnc 102mmol/L Normal 518452172764 98 - 10 7 [facility] Calcium SerPl-mCnc 9.5mg/dL Normal 882464543329 8.8 - 10.2 [facility] Sodium SerPl-sCnc 143mmol/L Normal 136 - 144 [facility] Potassium SerPl-sCnc 4.3mmol/L Normal 107252909071 3.3 - 5.3 [facility] AST/ALT SerPl-cRto 0.9 Normal 857020309508 - [facility] Bilirub Direct SerPl-mCnc 0.3mg/dL Normal 817327527561 - [facility] ALP SerPl-cCnc 114U/L Normal [id number] 9 - 122 [facility] ALT SerPl w/o P-5'-P-cCnc 69U/L Above high normal 649288919779 9 - 59 [facility] AST SerPl w P-5'-P-cCnc 65U/L Above high normal 364042811335 10 - 35 [facility] Bilirub SerPl-mCnc 0.7mg/dL Normal 467536396178 - [facility] CRP SerPl HS-mCnc 99.5mg/L Above high normal 833270932904 - [facility] Albumin SerPl BCG-mCnc 3.3g/dL Below low normal 882179498088 3.6 - 5.1 [facility] RBC #/area UrnS Auto 67/HPF Above high normal 633735711790 0 - 2 [facility] WBC #/area UrnS Auto 1/HPF Normal 773279861750 0 - 5 [facility] Glucose Ur Strip.auto-mCnc Negative Normal 354508068256 - [facility] Color Ur Auto Yellow Normal 974868539473 - [facility] Hgb Ur Ql Strip.auto 1+ Abnormal 562147951595 - [facility] Ketones Ur Strip.auto-mCnc Negative Normal 002075357711 - [facility] Prot Ur Strip.auto-mCnc 1+ Abnormal 867190121863 - [facility] Bilirub Ur Ql Strip.auto Negative Normal 547044251734 - [facility] WBC # Ur Strip Negative Normal 305180470049 - [facility] Nitrite Ur Ql Strip.auto Negative Normal - [facility] Clarity Ur Refract.auto Cloudy Abnormal 486442710684 - [facility] pH Ur Strip.auto 7.5 Normal 662353920348 5.5 - 7.5 [facility] Urobilinogen Ur Strip-mCnc 12mg/dL Above high normal 325840199697 - [facility] Sp Gr Ur Refract.auto 1.032 Above high normal 790923276864 1.005 - 1.03 [facility] BUN SerPl-mCnc 30mg/dL Above high normal 227252802919 6 - 20 [facility] Creat SerPl-mCnc 0.7mg/dL Normal 533112125760 0.4 - 1.3 [facility] Anion Gap3 SerPl-sCnc 9 Normal 664326937040 7 - 17 [facility] GFR/BSA.pred SerPlBld JCJ-BWZ-ItBJvx 60mL/min/1.73m2 Normal 598908225354 - [facility] HCO3 SerPl-sCnc 32mmol/L Above high normal 099000679419 20 - 30 [facility] Glucose SerPl-mCnc 200mg/dL Above high normal 488882818156 70 - 100 [facility] BUN/Creat SerPl 42.9 Above high normal 037533155474 8 - 23 [facility] Chloride SerPl-sCnc 100mmol/L Normal 762211078798 98 - 10 7 [facility] Calcium SerPl-mCnc 9.2mg/dL Normal 006236147682 8.8 - 10.2 [facility] Sodium SerPl-sCnc 141mmol/L Normal 694726648724 136 - 144 [facility] Potassium SerPl-sCnc 3.8mmol/L Normal 484490135318 3.3 - 5.3 [facility] Phosphate SerPl-mCnc 3.5mg/dL Normal 664862671588 2.2 - 4.5 [facility] Magnesium SerPl-mCnc 2mg/dL Normal 763004694812 1.7 - 2.4 [facility] Hgb Bld-mCnc 10.8g/dL Below low normal 017155258217 13.2 - 17.1 [facility] Eosinophil # Bld Auto 0.76e0493/uL Normal 219630272771 0 - 1 [facility] MCHC RBC Auto-mCnc 33.6g/dL Normal 680989465910 31 - 36 [facility] PMV Bld Auto 11.5fL Normal 004890086487 8 - 12 [facility] Basophils/leuk NFr Bld Auto 0.4% Normal 721009419053 0 - 1.4 [facility] Monocytes/leuk NFr Bld Auto 11% Normal [id number] 4 - 12 [facility] RDW RBC Auto-Rto 12.2% Normal 224267494312 11 - 15 [facility] Monocytes # Bld Auto 1.38n3481/uL Above high normal 891580320373 0 - 1 [facility] Basophils # Bld Auto 0.32m5843/uL Normal 454970590543 0 - 1 [facility] Imm Granulocytes # Bld Auto 0.15y2769/uL Normal 552475414304 0 - 0.3 [facility] Neutrophils # Bld Auto 6.23u1152/uL Normal 794889846570 2 - 7.6 [facility] Hct VFr Bld Auto 32.1% Below low normal 582642127317 38. 5 - 50 [facility] Lymphocytes/leuk NFr Bld Auto 13.5% Below low normal 646486959660 17 - 50 [facility] Lymphocytes # Bld Auto 1.26x4916/uL Normal 023289589409 0.6 - 3.7 [facility] nRBC/100 WBC Bld Auto-Rto 0% Normal 862153920670 0 - 1 [facility] RBC # Bld Auto 3.39M/uL Below low normal 109346373096 4 - 6 [facility] Neutrophils/leuk NFr Bld Auto 71.6% Normal 769199310639 39 - 72 [facility] Eosinophil/leuk NFr Bld Auto 2.3% Normal 206480124484 0 - 5 [facility] Imm Granulocytes/leuk NFr Bld Auto 1.2% Above high normal 712612157800 0 - 1 [facility] WBC # Bld Auto 9.6b6469/uL Normal 215697034712 4 - 11 [facility] nRBC # Bld Auto 3p1753/uL Normal 598057944253 0 - 1 [facility] MCV RBC Auto 94.7fL Normal 648338138178 80 - 100 [facility] MCH RBC Qn Auto 31.9pg Normal 27 - 33 [facility] Platelet # Bld Auto 879p3456/uL Normal [id number] 150 - 420 [facility] Ammonia Plas-sCnc 50umol/L Above high normal 1 1 - 35 [facility] AST/ALT SerPl-cRto 0.9 Normal - [facility] Bilirub Direct SerPl-mCnc 0.3mg/dL Normal 372443400770 - [facility] ALP SerPl-cCnc 101U/L Normal 9 - 122 [facility] ALT SerPl w/o P-5'-P-cCnc 73U/L Above high normal 373723140995 9 - 59 [facility] AST SerPl w P-5'-P-cCnc 68U/L Above high normal 10 - 35 [facility] Bilirub SerPl-mCnc 0.6mg/dL Normal 658291481352 - [facility] CK SerPl-cCnc 389U/L Above high normal 11 - 204 [facility] TSH SerPl DL<=0.005 mIU/L-aCnc 2.02uIU/mL Normal 379063387162 - [facility] BKR OXYGEN MODE (ARTERIAL BG DOMINGO QUESTION) Nasal Cannula Normal 856249154145 [facility] BKR SP02 (ARTERIAL BG DOMINGO QUESTION) 97% Normal [facility] pCO2 BldA 50mmHg Above high normal 32 - 48 [facility] HCO3 std BldA-sCnc 33.4mmol/L Above high normal 21 - 28 [facility] BKR LITER FLOW (ARTERIAL BG DOMINGO QUESTION) 3L/min Normal [facility] pH BldA 7.45units Normal 7.35 - 7.45 [facility] TEMPERATURE (ARTERIAL BG [place] QUESTION) 99.7Fahrenheit Normal [facility] pO2 BldA 90mmHg Normal 83 - 108 [facility] SaO2 % BldA 96% Normal 94 - [address] [facility] [address] Base excess std BldA Calc-sCnc 9mmol/L Above high normal - [facility] BUN SerPl-mCnc 23mg/dL Above high normal 6 - 20 [facility] Creat SerPl-mCnc 0.65mg/dL Normal 0.4 - 1.3 [facility] Anion Gap3 SerPl-sCnc 10 Normal 7 - 17 [facility] GFR/BSA.pred SerPlBld IKP-MFP-EgOAnu 60mL/min/1.73m2 Normal - [facility] HCO3 SerPl-sCnc 32mmol/L Above high normal 20 - 30 [facility] Glucose SerPl-mCnc 196mg/dL Above high normal 70 - 100 [facility] BUN/Creat SerPl 35.4 Above high normal [id number] 8 - 23 [facility] Chloride SerPl-sCnc 101mmol/L Normal 98 - 10 7 [facility] Calcium SerPl-mCnc 9.5mg/dL Normal 8.8 - 10.2 [facility] Sodium SerPl-sCnc 143mmol/L Normal 136 - 144 [facility] Potassium SerPl-sCnc 3.6mmol/L Normal [id number] 3.3 - 5.3 [facility] ESTIMATED AVERAGE GLUCOSE 169mg/dL Normal [id number] [facility] Hgb A1c MFr Bld 7.5% Above high normal [id number] 4 - 5.6 [facility] ABO GROUPING O Normal [id number] [facility] ANTIBODY SCREEN NEG Normal [id number] [facility] RH TYPE POS Normal [id number] [facility] Phosphate SerPl-mCnc 3.1mg/dL Normal [id number] 2.2 - 4.5 [facility] Magnesium SerPl-mCnc 1.7mg/dL Normal 1.7 - 2.4 [facility] BUN SerPl-mCnc 18mg/dL Normal 6 - 20 [facility] Creat SerPl-mCnc 0.68mg/dL Normal [id number] 0.4 - 1.3 [facility] Anion Gap3 SerPl-sCnc 14 Normal [id number] 7 - 17 [facility] GFR/BSA.pred SerPlBld MRB-ACQ-PfZGxx 60mL/min/1.73m2 Normal [id number] - [facility] HCO3 SerPl-sCnc 29mmol/L Normal [id number] 20 - 30 [facility] Glucose SerPl-mCnc 221mg/dL Above high normal [id number] 70 - 100 [facility] BUN/Creat SerPl 26.5 Above high normal 555882679110 8 - 23 [facility] Chloride SerPl-sCnc 96mmol/L Below low normal 502555459639 98 - 107 [facility] Calcium SerPl-mCnc 9.5mg/dL Normal 716643188925 8.8 - 10.2 [facility] Sodium SerPl-sCnc 139mmol/L Normal [id number] 136 - 144 [facility] Potassium SerPl-sCnc 3.5mmol/L Normal 821679264719 3.3 - 5.3 [facility] Hgb Bld-mCnc 12g/dL Below low normal 655254487646 13.2 - 17.1 [facility] Eosinophil # Bld Auto 0.91c0211/uL Normal [id number] 0 - 1 [facility] MCHC RBC Auto-mCnc 34.1g/dL Normal [id number] 31 - 36 [facility] PMV Bld Auto 11.5fL Normal [id number] 8 - 12 [facility] Basophils/leuk NFr Bld Auto 0.5% Normal [id number] 0 - 1.4 [facility] Monocytes/leuk NFr Bld Auto 12.5% Above high normal [id number] 4 - 12 [facility] RDW RBC Auto-Rto 12.1% Normal [id number] 11 - 15 [facility] Monocytes # Bld Auto 1.26z7632/uL Above high normal 585520072751 0 - 1 [facility] Basophils # Bld Auto 0.39g3505/uL Normal [id number] 0 - 1 [facility] Imm Granulocytes # Bld Auto 0.25o4393/uL Normal [id number] 0 - 0.3 [facility] Neutrophils # Bld Auto 6.57e1150/uL Normal [id number] 2 - 7.6 [facility] Hct VFr Bld Auto 35.2% Below low normal 104719670354 38. 5 - 50 [facility] Lymphocytes/leuk NFr Bld Auto 17.6% Normal [id number] 17 - 50 [facility] Lymphocytes # Bld Auto 1.52p7463/uL Normal [id number] 0.6 - 3.7 [facility] nRBC/100 WBC Bld Auto-Rto 0% Normal [id number] 0 - 1 [facility] RBC # Bld Auto 3.82M/uL Below low normal 275851930918 4 - 6 [facility] Neutrophils/leuk NFr Bld Auto 66.2% Normal 980153796302 39 - 72 [facility] Eosinophil/leuk NFr Bld Auto 2% Normal [id number] 0 - 5 [facility] Imm Granulocytes/leuk NFr Bld Auto 1.2% Above high normal 192173594062 0 - 1 [facility] WBC # Bld Auto 10.0g8658/uL Normal [id number] 4 - 11 [facility] nRBC # Bld Auto 8k0996/uL Normal [id number] 0 - 1 [facility] MCV RBC Auto 92.1fL Normal 829712838997 80 - 100 [facility] MCH RBC Qn Auto 31.4pg Normal [id number] 27 - 33 [facility] Platelet # Bld Auto 935g9569/uL Normal [id number] 150 - 420 [facility] Magnesium SerPl-mCnc 1.7mg/dL Normal [id number] 1.7 - 2.4 [facility] Phosphate SerPl-mCnc 3.7mg/dL Normal [id number] 2.2 - 4.5 [facility] HCO3 SerPl-sCnc 30mmol/L Normal 20 - 30 [facility] Glucose SerPl-mCnc 220mg/dL Above high normal [id number] 70 - 100 [facility] Creat SerPl-mCnc 0.51mg/dL Normal [id number] 0.4 - 1.3 [facility] Calcium SerPl-mCnc 9.2mg/dL Normal 410405349904 8.8 - 10.2 [facility] Sodium SerPl-sCnc 137mmol/L Normal 136 - 144 [facility] Anion Gap3 SerPl-sCnc 12 Normal [id number] 7 - 17 [facility] BUN SerPl-mCnc 15mg/dL Normal [id number] 6 - 20 [facility] BUN/Creat SerPl 29.4 Above high normal 791923698334 8 - 23 [facility] Chloride SerPl-sCnc 95mmol/L Below low normal [id number] 98 - 107 [facility] Potassium SerPl-sCnc 3.8mmol/L Normal 3.3 - 5.3 [facility] GFR/BSA.pred SerPlBld BKG-OCO-OuTVvo 60mL/min/1.73m2 Normal [id number] - [facility] Path Interp Bld-Imp The unfractionated heparin level is BELOW therapeutic range. Normal [id number] [facility] Path Interp Bld-Imp The low molecular weight heparin level is BELOW therapeutic range for both q12 \T\ q24 dosing. Normal [id number] [facility] HCO3 SerPl-sCnc 29mmol/L Normal [id number] 20 - 30 [facility] Glucose SerPl-mCnc 177mg/dL Above high normal 244097618154 70 - 100 [facility] Creat SerPl-mCnc 0.59mg/dL Normal [id number] 0.4 - 1.3 [facility] Calcium SerPl-mCnc 9.1mg/dL Normal 098711973898 8.8 - 10.2 [facility] Sodium SerPl-sCnc 142mmol/L Normal 972164173550 136 - 144 [facility] Anion Gap3 SerPl-sCnc 11 Normal 579509513945 7 - 17 [facility] BUN SerPl-mCnc 16mg/dL Normal 210348565908 6 - 20 [facility] BUN/Creat SerPl 27.1 Above high normal 622535930909 8 - 23 [facility] Chloride SerPl-sCnc 102mmol/L Normal 859010102111 98 - 10 7 [facility] Potassium SerPl-sCnc 3.8mmol/L Normal 872037518570 3.3 - 5.3 [facility] GFR/BSA.pred SerPlBld BAK-ILP-OiTWte 60mL/min/1.73m2 Normal [id number] - [facility] Magnesium SerPl-mCnc 1.7mg/dL Normal 483452737834 1.7 - 2.4 [facility] Phosphate SerPl-mCnc 3.8mg/dL Normal 982852335940 2.2 - 4.5 [facility] MCV RBC Auto 94.7fL Normal 991898109377 80 - 100 [facility] Lymphocytes # Bld Auto 1.23w2365/uL Normal 489637163115 0.6 - 3.7 [facility] WBC # Bld Auto 6.3u8446/uL Normal 383160709313 4 - 11 [facility] Monocytes/leuk NFr Bld Auto 11.3% Normal 591771825383 4 - 12 [facility] Imm Granulocytes/leuk NFr Bld Auto 1.3% Above high normal 150996658227 0 - 1 [facility] nRBC # Bld Auto 8t8876/uL Normal 402349879035 0 - 1 [facility] Platelet # Bld Auto 894r0027/uL Normal [id number] 150 - 420 [facility] PMV Bld Auto 11.5fL Normal [id number] 8 - 12 [facility] MCH RBC Qn Auto 31.3pg Normal 964981019232 27 - 33 [facility] Eosinophil # Bld Auto 0.04b2555/uL Normal 951762606050 0 - 1 [facility] Neutrophils/leuk NFr Bld Auto 67.5% Normal 361221298908 39 - 72 [facility] Imm Granulocytes # Bld Auto 0.31t4553/uL Normal 899570278434 0 - 0.3 [facility] RBC # Bld Auto 3.23M/uL Below low normal 829410752039 4 - 6 [facility] Monocytes # Bld Auto 0.89r5482/uL Normal 650793491302 0 - 1 [facility] RDW RBC Auto-Rto 12.4% Normal 662774058563 11 - 15 [facility] Lymphocytes/leuk NFr Bld Auto 16.9% Below low normal 521846483283 17 - 50 [facility] Eosinophil/leuk NFr Bld Auto 2.5% Normal 275194400171 0 - 5 [facility] Basophils # Bld Auto 0.70j6643/uL Normal 382081251731 0 - 1 [facility] nRBC/100 WBC Bld Auto-Rto 0% Normal 997782285584 0 - 1 [facility] Neutrophils # Bld Auto 4.02e3245/uL Normal 799515675980 2 - 7.6 [facility] Hct VFr Bld Auto 30.6% Below low normal 923928371454 38. 5 - 50 [facility] Hgb Bld-mCnc 10.1g/dL Below low normal 397504475146 13.2 - 17.1 [facility] MCHC RBC Auto-mCnc 33g/dL Normal 283037762973 31 - 36 [facility] Basophils/leuk NFr Bld Auto 0.5% Normal 382883034611 0 - 1.4 [facility] UFH PPP Manager Hair-aCnc 0.22u/mL Normal 588764806941 - [facility] Trigl SerPl-mCnc 260mg/dL Above high normal 035761366980 - [facility] Lipase SerPl-cCnc 92U/L Above high normal 491202663082 1 1 - 55 [facility] HCO3 SerPl-sCnc 26mmol/L Normal 693988776334 20 - 30 [facility] Glucose SerPl-mCnc 182mg/dL Above high normal 70 - 100 [facility] Creat SerPl-mCnc 0.6mg/dL Normal 0.4 - 1.3 [facility] Calcium SerPl-mCnc 8.8mg/dL Normal 8.8 - 10.2 [facility] Sodium SerPl-sCnc 147mmol/L Above high normal 1 36 - 144 [facility] Anion Gap3 SerPl-sCnc 11 Normal 7 - 17 [facility] BUN SerPl-mCnc 19mg/dL Normal 6 - 20 [facility] BUN/Creat SerPl 31.7 Above high normal 8 - 23 [facility] Chloride SerPl-sCnc 110mmol/L Above high normal 98 - 107 [facility] Potassium SerPl-sCnc 3.6mmol/L Normal 3.3 - 5.3 [facility] GFR/BSA.pred SerPlBld XZA-IUZ-NlULut 60mL/min/1.73m2 Normal - [facility] Phosphate SerPl-mCnc 3mg/dL Normal 2.2 - 4.5 [facility] Magnesium SerPl-mCnc 1.9mg/dL Normal 827072776631 1.7 - 2.4 [facility] MCV RBC Auto 97.7fL Normal 474986919084 80 - 100 [facility] Lymphocytes # Bld Auto 0.45r8736/uL Normal [id number] 0.6 - 3.7 [facility] WBC # Bld Auto 5.4t0154/uL Normal 061599593110 4 - 11 [facility] Monocytes/leuk NFr Bld Auto 9.8% Normal 703274182834 4 - 12 [facility] Imm Granulocytes/leuk NFr Bld Auto 0.5% Normal 256038824189 0 - 1 [facility] nRBC # Bld Auto 8i3146/uL Normal 003098310736 0 - 1 [facility] Platelet # Bld Auto 345o2669/uL Normal [id number] 150 - 420 [facility] PMV Bld Auto 11.8fL Normal 510163046496 8 - 12 [facility] MCH RBC Qn Auto 32.2pg Normal 060513646738 27 - 33 [facility] Eosinophil # Bld Auto 0.50f7827/uL Normal 317393815611 0 - 1 [facility] Neutrophils/leuk NFr Bld Auto 70.8% Normal 705677296604 39 - 72 [facility] Imm Granulocytes # Bld Auto 0.01n9719/uL Normal 807440675047 0 - 0.3 [facility] RBC # Bld Auto 3.04M/uL Below low normal 604477998081 4 - 6 [facility] Monocytes # Bld Auto 0.60l0048/uL Normal 478432493618 0 - 1 [facility] RDW RBC Auto-Rto 12.8% Normal 265601548604 11 - 15 [facility] Lymphocytes/leuk NFr Bld Auto 16.3% Below low normal 804613117480 17 - 50 [facility] Eosinophil/leuk NFr Bld Auto 2.1% Normal 710837307160 0 - 5 [facility] Basophils # Bld Auto 0.98b2841/uL Normal 934748625043 0 - 1 [facility] nRBC/100 WBC Bld Auto-Rto 0% Normal 281120160865 0 - 1 [facility] Neutrophils # Bld Auto 3.60w2121/uL Normal 210968998960 2 - 7.6 [facility] Hct VFr Bld Auto 29.7% Below low normal 331611735935 38. 5 - 50 [facility] Hgb Bld-mCnc 9.8g/dL Below low normal 693208019494 13.2 - 17.1 [facility] MCHC RBC Auto-mCnc 33g/dL Normal 980234127743 31 - 36 [facility] Basophils/leuk NFr Bld Auto 0.5% Normal 731230491405 0 - 1.4 [facility] B[facility] TEMPERATURE (ARTERIAL BG DOMINGO QUESTION) 100.2Fahrenheit Normal 447165695168 [facility] pH BldA 7.41units Normal 297016369904 7.35 - 7.45 [facility] pCO2 BldA 45mmHg Normal 184268644820 32 - 48 [facility] HCO3 std BldA-sCnc 27.5mmol/L Normal [id number] 21 - 28 [facility] SaO2 % BldA 98% Normal 959919966935 94 - [address] Base excess std BldA Calc-sCnc 3mmol/L Normal 609123661376 - [facility] pO2 BldA 133mmHg Above high normal 213343761262 83 - 108 [facility] B[facility] ABO GROUPING O Normal 172342220084 [facility] ANTIBODY SCREEN NEG Normal 895582417747 [facility] RH TYPE POS Normal 205712034140 [facility] Phosphate SerPl-mCnc 2.2mg/dL Normal 380559070020 2.2 - 4.5 [facility] Magnesium SerPl-mCnc 2mg/dL Normal 931531664475 1.7 - 2.4 [facility] HCO3 SerPl-sCnc 26mmol/L Normal 001714560951 20 - 30 [facility] Glucose SerPl-mCnc 162mg/dL Above high normal 560737279345 70 - 100 [facility] Creat SerPl-mCnc 0.71mg/dL Normal 296758770260 0.4 - 1.3 [facility] Calcium SerPl-mCnc 8.5mg/dL Below low normal 16657108481 6 8.8 - 10.2 [facility] Sodium SerPl-sCnc 148mmol/L Above high normal 258576437206 1 36 - 144 [facility] Anion Gap3 SerPl-sCnc 9 Normal 555815451685 7 - 17 [facility] BUN SerPl-mCnc 19mg/dL Normal 481770434735 6 - 20 [facility] BUN/Creat SerPl 26.8 Above high normal 723029564819 8 - 23 [facility] Chloride SerPl-sCnc 113mmol/L Above high normal 219973319556 98 - 107 [facility] Potassium SerPl-sCnc 3.5mmol/L Normal 710488995966 3.3 - 5.3 [facility] GFR/BSA.pred SerPlBld SNQ-ETX-IvDRlr 60mL/min/1.73m2 Normal 894799628711 - [facility] MCV RBC Auto 97.7fL Normal 255521864460 80 - 100 [facility] Lymphocytes # Bld Auto 1.76a6180/uL Normal 398407969468 0.6 - 3.7 [facility] WBC # Bld Auto 2l3230/uL Normal 720787808141 4 - 11 [facility] Monocytes/leuk NFr Bld Auto 10.9% Normal 444712005456 4 - 12 [facility] Imm Granulocytes/leuk NFr Bld Auto 0.4% Normal 679727007533 0 - 1 [facility] nRBC # Bld Auto 6n6976/uL Normal 658077239253 0 - 1 [facility] Platelet # Bld Auto 638f5373/uL Normal 757162187567 150 - 420 [facility] PMV Bld Auto 11.6fL Normal 744965424262 8 - 12 [facility] MCH RBC Qn Auto 32.2pg Normal 572238065428 27 - 33 [facility] Eosinophil # Bld Auto 0.50o7195/uL Normal 063713489203 0 - 1 [facility] Neutrophils/leuk NFr Bld Auto 70.1% Normal 870188679366 39 - 72 [facility] Imm Granulocytes # Bld Auto 0.09g2586/uL Normal 898677988915 0 - 0.3 [facility] RBC # Bld Auto 3.04M/uL Below low normal 089738052427 4 - 6 [facility] Monocytes # Bld Auto 0.64n8984/uL Normal [id number] 0 - 1 [facility] RDW RBC Auto-Rto 12.9% Normal 194356592162 11 - 15 [facility] Lymphocytes/leuk NFr Bld Auto 17.6% Normal 403598601621 17 - 50 [facility] Eosinophil/leuk NFr Bld Auto 0.6% Normal 293692871868 0 - 5 [facility] Basophils # Bld Auto 0.68j7224/uL Normal 890257360285 0 - 1 [facility] nRBC/100 WBC Bld Auto-Rto 0% Normal 642858926363 0 - 1 [facility] Neutrophils # Bld Auto 4.63e8875/uL Normal 052227859708 2 - 7.6 [facility] Hct VFr Bld Auto 29.7% Below low normal 471351542095 38. 5 - 50 [facility] Hgb Bld-mCnc 9.8g/dL Below low normal 172997807383 13.2 - 17.1 [facility] MCHC RBC Auto-mCnc 33g/dL Normal 922034677428 31 - 36 [facility] Basophils/leuk NFr Bld Auto 0.4% Normal [id number] 0 - 1.4 [facility] BKR BENZOYLECGONINE (COCAINE METABOLITE), LCMSMS, UR Positive for Benzoyleconine (Cocaine Metabolite) by LC-MS/MS Abnormal 390264787997 - [facility] UFH PPP Manager Hair-aCnc 0.12u/mL Normal 764626311815 - [facility] Phosphate SerPl-mCnc 1.7mg/dL Below low normal 594414094531 2.2 - 4.5 [facility] Magnesium SerPl-mCnc 2.1mg/dL Normal 286505472721 1.7 - 2.4 [facility] Calcium SerPl-mCnc 8.3mg/dL Below low normal 91411803792 4 8.8 - 10.2 [facility] Anion Gap3 SerPl-sCnc 13 Normal [id number] 7 - 17 [facility] BUN SerPl-mCnc 16mg/dL Normal 541812831921 6 - 20 [facility] HCO3 SerPl-sCnc 21mmol/L Normal 415393979865 20 - 30 [facility] Creat SerPl-mCnc 0.7mg/dL Normal 499302100576 0.4 - 1.3 [facility] Chloride SerPl-sCnc 111mmol/L Above high normal 745023167209 98 - 107 [facility] BUN/Creat SerPl 22.9 Normal 351559882089 8 - 23 [facility] GFR/BSA.pred SerPlBld ELJ-ZSY-BoOQyt 60mL/min/1.73m2 Normal [id number] - [facility] Potassium SerPl-sCnc 3.6mmol/L Normal 211806275965 3.3 - 5.3 [facility] Sodium SerPl-sCnc 145mmol/L Above high normal 122424514441 1 36 - 144 [facility] Glucose SerPl-mCnc 151mg/dL Above high normal 215136342913 70 - 100 [facility] Lipase SerPl-cCnc 45U/L Normal 627193805693 11 - 55 [facility] Monocytes # Bld Auto 0.98q2326/uL Normal 641174575410 0 - 1 [facility] nRBC/100 WBC Bld Auto-Rto 0% Normal 810761146086 0 - 1 [facility] Neutrophils # Bld Auto 6.46t9799/uL Normal 042895025539 2 - 7.6 [facility] Eosinophil # Bld Auto 8c7377/uL Normal 846193519333 0 - 1 [facility] nRBC # Bld Auto 0y8938/uL Normal 751776752513 0 - 1 [facility] MCHC RBC Auto-mCnc 32.2g/dL Normal 729309684657 31 - 36 [facility] Monocytes/leuk NFr Bld Auto 8.5% Normal 313123519347 4 - 12 [facility] Basophils # Bld Auto 0.24x7329/uL Normal 828794226460 0 - 1 [facility] WBC # Bld Auto 2y1968/uL Normal 606453976822 4 - 11 [facility] Hct VFr Bld Auto 31.4% Below low normal 347838799490 38. 5 - 50 [facility] RDW RBC Auto-Rto 12.9% Normal 702771989162 11 - 15 [facility] PMV Bld Auto 11.8fL Normal 799362259260 8 - 12 [facility] Eosinophil/leuk NFr Bld Auto 0% Normal 940280184943 0 - 5 [facility] MCH RBC Qn Auto 31.2pg Normal 770741873050 27 - 33 [facility] Basophils/leuk NFr Bld Auto 0.2% Normal [id number] 0 - 1.4 [facility] Lymphocytes # Bld Auto 1.95q2625/uL Normal 930177505631 0.6 - 3.7 [facility] RBC # Bld Auto 3.24M/uL Below low normal 655470569565 4 - 6 [facility] Neutrophils/leuk NFr Bld Auto 76.8% Above high normal 847278771120 39 - 72 [facility] Imm Granulocytes # Bld Auto 0.82w2592/uL Normal 676824583957 0 - 0.3 [facility] Platelet # Bld Auto 670i3109/uL Normal [id number] 150 - 420 [facility] MCV RBC Auto 96.9fL Normal 177015343476 80 - 100 [facility] Lymphocytes/leuk NFr Bld Auto 14.2% Below low normal 977153895638 17 - 50 [facility] Imm Granulocytes/leuk NFr Bld Auto 0.3% Normal 794973729438 0 - 1 [facility] Hgb Bld-mCnc 10.1g/dL Below low normal 293909496233 13.2 - 17.1 [facility] B[facility] ANTIBODY SCREEN NEG Normal 676357550608 [facility] RH TYPE POS Normal 266835835033 [facility] BKR ABO GROUPING O Normal 074038748007 [facility] Trigl SerPl-mCnc 154mg/dL Above high normal 182305988802 - [facility] Troponin T SerPl HS-mCnc 142ng/L Critically high 891845338128 - [facility] B[facility] VENT MODE (ARTERIAL BG DOMINGO QUESTION) AC/VC Normal [facility] OXYGEN MODE (ARTERIAL BG DOMINGO QUESTION) Ventilator Normal [facility] B[facility] ALLENS TEST PERFORMED (ARTERIAL BG DOMINGO QUESTION) Yes Normal [facility] FIO2 (ARTERIAL BG DOMINGO QUESTION) 50% Normal [facility] Base excess std BldA Calc-sCnc -1mmol/L Normal - [facility] B[facility] SP02 (ARTERIAL BG DOMINGO QUESTION) 99% Normal [facility] pH BldA 7.39units Normal 7.35 - 7.45 [facility] HCO3 std BldA-sCnc 22.6mmol/L Normal 21 - 28 [facility] END TIDAL CO2/TCOM (ARTERIAL BG DOMINGO QUESTION) 33mmol/L Normal [facility] pO2 BldA 125mmHg Above high normal 83 - 108 [facility] SaO2 % BldA 99% Above high normal 711922654025 94 - 98 [facility] pCO2 BldA 39mmHg Normal 32 - 48 [facility] BKR TEMPERATURE (ARTERIAL BG DOMINGO QUESTION) 100.4Fahrenheit Normal 442992982230 [facility] ACTUAL RESPIRATORY RATE (ARTERIAL BG DOMINGO QUESTION) 16breaths/min Normal 188944912104 [facility] Troponin T SerPl HS-mCnc 148ng/L Normal 783820927269 [facility] Troponin T SerPl HS-mCnc 114ng/L Normal 225005717100 [facility] WBC/HPF 20-30 Abnormal 801073988531 0 - [address] Trans Cells #/area UrnS HPF Rare Abnormal - [facility] B[facility] HYALINE CASTS, UA (MANUAL) 1-3 Normal 752289943071 0 - 3 [facility] RBC #/area UrnS HPF >30 Abnormal 0 - 2 [facility] B[facility] BACTERIA, UA (MANUAL) Few Abnormal 160349949694 - [facility] URINE SQUAMOUS EPITHELIAL CELLS, UA (MANUAL) Rare Normal 344161318488 - [facility] Manual differential performed Bld Ql Performed Normal 368898897406 [facility] WBC #/area UrnS Auto Normal [id number] [facility] RBC #/area UrnS Auto Normal [id number] [facility] Hgb Ur Ql Strip.auto 3+ Abnormal 682939564120 - [facility] Prot Ur Strip.auto-mCnc 2+ Abnormal 776258856802 - [facility] Color Ur Auto Yellow Normal 051615281815 - [facility] Glucose Ur Strip.auto-mCnc Trace Abnormal 381806766002 - [facility] Bilirub Ur Ql Strip.auto Negative Normal [id number] - [facility] Nitrite Ur Ql Strip.auto Negative Normal 028719902588 - [facility] Ketones Ur Strip.auto-mCnc 4+ Abnormal 719234591314 - [facility] Clarity Ur Refract.auto Cloudy Abnormal 113052138584 - [facility] WBC # Ur Strip Negative Normal 923561225433 - [facility] Urobilinogen Ur Strip-mCnc 4mg/dL Above high normal 397077625908 - [facility] pH Ur Strip.auto 6 Normal 594290334340 5.5 - 7.5 [facility] Sp Gr Ur Refract.auto 1.037 Above high normal 989122463030 1.005 - 1.03 [facility] Troponin T SerPl HS-mCnc 37ng/L Above high normal 905039465540 - [facility] Lactate SerPl-sCnc 1.3mmol/L Normal 0.5 - 2. 2 [facility] BKR OXYGEN MODE (ARTERIAL BG DOMINGO QUESTION) Ventilator Normal [facility] B[facility] FIO2 (ARTERIAL BG DOMINGO QUESTION) 100% Normal [facility] Base excess std BldA Calc-sCnc -6mmol/L Below low normal 726576246470 - [facility] pH BldA 7.26units Below low normal 7.35 - 7.45 [facility] HCO3 std BldA-sCnc 20.7mmol/L Below low normal 253127628013 21 - 28 [facility] pO2 BldA 105mmHg Normal 907079806658 83 - 108 [facility] SaO2 % BldA 96% Normal 373290378763 94 - [address] pCO2 BldA 49mmHg Above high normal 407696295165 32 - 48 [facility] BKR TEMPERATURE (ARTERIAL BG DOMINGO QUESTION) 100.9Fahrenheit Normal 502440457011 [facility] Phosphate SerPl-mCnc 3.1mg/dL Normal 337747552184 2.2 - 4.5 [facility] Calcium SerPl-mCnc 8.5mg/dL Below low normal 45635509275 9 8.8 - 10.2 [facility] Anion Gap3 SerPl-sCnc 14 Normal 711732749523 7 - 17 [facility] BUN SerPl-mCnc 16mg/dL Normal 116333112181 6 - 20 [facility] HCO3 SerPl-sCnc 21mmol/L Normal 682154624558 20 - 30 [facility] Creat SerPl-mCnc 0.7mg/dL Normal 918035550744 0.4 - 1.3 [facility] Chloride SerPl-sCnc 110mmol/L Above high normal 316945348749 98 - 107 [facility] BUN/Creat SerPl 22.9 Normal 947656867062 8 - 23 [facility] GFR/BSA.pred SerPlBld ZTW-IVP-AbCTrj 60mL/min/1.73m2 Normal 427011703891 - [facility] Potassium SerPl-sCnc 3.6mmol/L Normal 694597607213 3.3 - 5.3 [facility] Sodium SerPl-sCnc 145mmol/L Above high normal 457558725214 1 36 - 144 [facility] Glucose SerPl-mCnc 163mg/dL Above high normal 211779219180 70 - 100 [facility] Magnesium SerPl-mCnc 1.8mg/dL Normal 799763000807 1.7 - 2.4 [facility] Monocytes # Bld Auto 0.29o9214/uL Normal 411826040513 0 - 1 [facility] nRBC/100 WBC Bld Auto-Rto 0% Normal 312847328220 0 - 1 [facility] Neutrophils # Bld Auto 7.26x6285/uL Above high normal 700617190359 2 - 7.6 [facility] Eosinophil # Bld Auto 0.73p8804/uL Normal 753097140424 0 - 1 [facility] nRBC # Bld Auto 7v6114/uL Normal 089156692713 0 - 1 [facility] MCHC RBC Auto-mCnc 34g/dL Normal 312694361939 31 - 36 [facility] Monocytes/leuk NFr Bld Auto 6.3% Normal 967913027951 4 - 12 [facility] Basophils # Bld Auto 0.75l7919/uL Normal 812445097163 0 - 1 [facility] WBC # Bld Auto 9a8310/uL Normal 142642680272 4 - 11 [facility] Hct VFr Bld Auto 34.1% Below low normal 794124268417 38. 5 - 50 [facility] RDW RBC Auto-Rto 12.5% Normal 756584802157 11 - 15 [facility] PMV Bld Auto 11.8fL Normal 918393378135 8 - 12 [facility] Eosinophil/leuk NFr Bld Auto 0.7% Normal 201910130117 0 - 5 [facility] MCH RBC Qn Auto 31.9pg Normal 827699907912 27 - 33 [facility] Basophils/leuk NFr Bld Auto 0.1% Normal 503378585709 0 - 1.4 [facility] Lymphocytes # Bld Auto 0.37e2711/uL Below low normal 829972479824 0.6 - 3.7 [facility] RBC # Bld Auto 3.64M/uL Below low normal 629665429471 4 - 6 [facility] Neutrophils/leuk NFr Bld Auto 86.9% Above high normal 944236568681 39 - 72 [facility] Imm Granulocytes # Bld Auto 0.70v2768/uL Normal 833097898582 0 - 0.3 [facility] Platelet # Bld Auto 893m8698/uL Normal 150 - 420 [facility] MCV RBC Auto 93.7fL Normal 80 - 100 [facility] Lymphocytes/leuk NFr Bld Auto 5.2% Below low normal 17 - 50 [facility] Imm Granulocytes/leuk NFr Bld Auto 0.8% Normal 0 - 1 [facility] Hgb Bld-mCnc 11.6g/dL Below low normal 13.2 - 17.1 [facility] BKR OXYGEN MODE (VENOUS BG DOMINGO QUESTION) Ventilator Normal [facility] WBC #/area UrnS HPF 62mmHg Above high normal 40 - 50 [facility] B[facility] O2 SATURATION VENOUS 83% Normal - [facility] BASE EXCESS, VENOUS -3mmol/L Normal - [facility] B[facility] ACTUAL RESPIRATORY RATE (VENOUS BG DOMINGO QUESTION) 16breaths/min Normal 871228287231 [facility] B[facility] TEMPERATURE (VENOUS BG DOMINGO QUESTION) 101.3Fahrenheit Normal 645085014907 [facility] B[facility] SP02 (VENOUS BG DOMINGO QUESTION) 96% Normal [facility] HCO3 std BldV-sCnc 23.4mmol/L Normal 216299313113 - [facility] pH BldV 7.25units Critically low 7.32 - 7.43 [facility] pCO2 BldV 57mmHg Above high normal 38 - 54 [facility] BKR END TIDAL CO2/TCOM (VENOUS BG DOMINGO QUESTION) 42mmol/L Normal 864317952890 [facility] B[facility] FIO2 (VENOUS BG DOMINGO QUESTION) 100% Normal 719690501919 [facility] PHENobarb SerPl-mCnc 14.5ug/mL Normal 10 - 40 [facility] AST/ALT SerPl-cRto 1 Normal 697398385275 - [facility] ALP SerPl-cCnc 62U/L Normal 9 - 122 [facility] Bilirub Direct SerPl-mCnc 0.2mg/dL Normal [id number] - [facility] AST SerPl w P-5'-P-cCnc 53U/L Above high normal 013260587869 10 - 35 [facility] ALT SerPl w/o P-5'-P-cCnc 55U/L Normal 839053217280 9 - 59 [facility] Bilirub SerPl-mCnc 0.9mg/dL Normal 097995424279 - [facility] Phosphate SerPl-mCnc 2.6mg/dL Normal 248723030350 2.2 - 4.5 [facility] Calcium SerPl-mCnc 8.7mg/dL Below low normal 20655372003 8 8.8 - 10.2 [facility] Anion Gap3 SerPl-sCnc 12 Normal 558333122345 7 - 17 [facility] BUN SerPl-mCnc 14mg/dL Normal 002668999902 6 - 20 [facility] HCO3 SerPl-sCnc 23mmol/L Normal 361737849232 20 - 30 [facility] Creat SerPl-mCnc 0.78mg/dL Normal 665146928687 0.4 - 1.3 [facility] Chloride SerPl-sCnc 107mmol/L Normal 440778754902 98 - 10 7 [facility] BUN/Creat SerPl 17.9 Normal 445977557951 8 - 23 [facility] GFR/BSA.pred SerPlBld CWV-UKS-KeOXbz 60mL/min/1.73m2 Normal [id number] - [facility] Potassium SerPl-sCnc 3.6mmol/L Normal 084683414262 3.3 - 5.3 [facility] Sodium SerPl-sCnc 142mmol/L Normal 256789228040 136 - 144 [facility] Glucose SerPl-mCnc 160mg/dL Above high normal 938327086784 70 - 100 [facility] Magnesium SerPl-mCnc 1.7mg/dL Normal 495566886055 1.7 - 2.4 [facility] Albumin SerPl BCG-mCnc 3.7g/dL Normal 754350132639 3.6 - 5.1 [facility] Prealb SerPl Neph-mCnc 22.5mg/dL Normal 809363641819 20 - 40 [facility] Monocytes # Bld Auto 1.65m2821/uL Above high normal [id number] 0 - 1 [facility] nRBC/100 WBC Bld Auto-Rto 0% Normal [id number] 0 - 1 [facility] Neutrophils # Bld Auto 9.42q0502/uL Above high normal [id number] 2 - 7.6 [facility] Eosinophil # Bld Auto 0.38m6390/uL Normal [id number] 0 - 1 [facility] nRBC # Bld Auto 3x2814/uL Normal [id number] 0 - 1 [facility] MCHC RBC Auto-mCnc 35.4g/dL Normal [id number] 31 - 36 [facility] Monocytes/leuk NFr Bld Auto 9.3% Normal [id number] 4 - 12 [facility] Basophils # Bld Auto 0.38p7884/uL Normal [id number] 0 - 1 [facility] WBC # Bld Auto 12.0n1836/uL Above high normal [id number] 4 - 11 [facility] Hct VFr Bld Auto 33.9% Below low normal [id number] 38. 5 - 50 [facility] RDW RBC Auto-Rto 12.5% Normal [id number] 11 - 15 [facility] PMV Bld Auto 11.7fL Normal [id number] 8 - 12 [facility] Eosinophil/leuk NFr Bld Auto 0.2% Normal [id number] 0 - 5 [facility] MCH RBC Qn Auto 32.1pg Normal [id number] 27 - 33 [facility] Basophils/leuk NFr Bld Auto 0.2% Normal [id number] 0 - 1.4 [facility] Lymphocytes # Bld Auto 1.7c0731/uL Normal [id number] 0.6 - 3.7 [facility] RBC # Bld Auto 3.74M/uL Below low normal [id number] 4 - 6 [facility] Neutrophils/leuk NFr Bld Auto 76.4% Above high normal [id number] 39 - 72 [facility] Imm Granulocytes # Bld Auto 0.90k9008/uL Normal [id number] 0 - 0.3 [facility] Platelet # Bld Auto 106y9489/uL Normal [id number] 150 - 420 [facility] MCV RBC Auto 90.6fL Normal [id number] 80 - 100 [facility] Lymphocytes/leuk NFr Bld Auto 13.4% Below low normal [id number] 17 - 50 [facility] Imm Granulocytes/leuk NFr Bld Auto 0.5% Normal [id number] 0 - 1 [facility] Hgb Bld-mCnc 12g/dL Below low normal [id number] 13.2 - 17.1 [facility] CRP SerPl HS-mCnc 4.3mg/L Above high normal [id number] - [facility] Lactate SerPl-sCnc 1.8mmol/L Normal 0.5 - 2. 2 [facility] Calcium SerPl-mCnc 9.4mg/dL Normal 8.8 - 10.2 [facility] Anion Gap3 SerPl-sCnc 16 Normal 7 - 17 [facility] BUN SerPl-mCnc 15mg/dL Normal 6 - 20 [facility] HCO3 SerPl-sCnc 21mmol/L Normal 20 - 30 [facility] Creat SerPl-mCnc 0.76mg/dL Normal 0.4 - 1.3 [facility] Chloride SerPl-sCnc 101mmol/L Normal 98 - 10 7 [facility] BUN/Creat SerPl 19.7 Normal 8 - 23 [facility] GFR/BSA.pred SerPlBld GSF-DVC-AlXZzl 60mL/min/1.73m2 Normal - [facility] Potassium SerPl-sCnc 3.5mmol/L Normal 3.3 - 5.3 [facility] Sodium SerPl-sCnc 138mmol/L Normal 136 - 144 [facility] Glucose SerPl-mCnc 203mg/dL Above high normal 70 - 100 [facility] Magnesium SerPl-mCnc 1.7mg/dL Normal 1.7 - 2.4 [facility] Phosphate SerPl-mCnc 2.2mg/dL Normal 2.2 - 4.5 [facility] INR PPP 0.95 Normal 0.86 - 1.12 [facility] aPTT PPP 30seconds Normal 23 - 31.4 [facility] Prothrombin time 10.6seconds Normal 9.6 - 12.3 [facility] MCH RBC Qn Auto 31.5pg Normal 27 - 33 [facility] RBC # Bld Auto 4.25M/uL Normal 4 - 6 [facility] Lymphocytes # Bld Auto 0.53a0927/uL Normal 0.6 - 3.7 [facility] Neutrophils/leuk NFr Bld Auto 86.7% Above high normal 39 - 72 [facility] Basophils # Bld Auto 0.39g6970/uL Normal 0 - 1 [facility] Lymphocytes/leuk NFr Bld Auto 4.6% Below low normal 17 - 50 [facility] PMV Bld Auto 11.8fL Normal 8 - 12 [facility] Imm Granulocytes # Bld Auto 0.57p7299/uL Normal 0 - 0.3 [facility] Monocytes/leuk NFr Bld Auto 7.8% Normal 4 - 12 [facility] Basophils/leuk NFr Bld Auto 0.1% Normal 0 - 1.4 [facility] nRBC/100 WBC Bld Auto-Rto 0% Normal 0 - 1 [facility] MCHC RBC Auto-mCnc 34.6g/dL Normal 31 - 36 [facility] Monocytes # Bld Auto 1.29s5267/uL Above high normal 0 - 1 [facility] Hct VFr Bld Auto 38.7% Normal 38.5 - 50 [facility] Eosinophil/leuk NFr Bld Auto 0.2% Normal 0 - 5 [facility] Neutrophils # Bld Auto 11.72d9450/uL Above high normal 2 - 7.6 [facility] Platelet # Bld Auto 488n0061/uL Normal 150 - 420 [facility] RDW RBC Auto-Rto 12.4% Normal 11 - 15 [facility] Imm Granulocytes/leuk NFr Bld Auto 0.6% Normal 0 - 1 [facility] Eosinophil # Bld Auto 0.89f2023/uL Normal 0 - 1 [facility] Hgb Bld-mCnc 13.4g/dL Normal 13.2 - 17.1 [facility] nRBC # Bld Auto 4y4346/uL Normal 0 - 1 [facility] MCV RBC Auto 91.1fL Normal 80 - 100 [facility] WBC # Bld Auto 13.6w1692/uL Above high normal 4 - 11 [facility] BKR ISOPROPANOL BLOOD2 Not Detected Normal - [facility] BKR METHANOL2 Not Detected Normal - [facility] BKR ACETONE BLOOD2 Not Detected Normal - [facility] Ethanol SerPl-mCnc 17mg/dL Above high normal - [facility] fentaNYL Ur Ql Scn Positive Abnormal - [facility] BKR DRUGS OF ABUSE NOTE Normal [facility] BKR BUPRENORPHINE SCREEN Negative Normal - [facility] BKR DRUGS OF ABUSE NOTE Normal [facility] PCP Ur Ql Scn>25 ng/mL Negative Normal - [facility] Benzodiaz Ur Ql Scn Positive Abnormal - [facility] oxyCODONE Ur Ql Scn Negative Normal - [facility] Barbiturates Ur Ql Scn Negative Normal - [facility] BZE Ur Ql Scn Positive Abnormal [id number] - [facility] Cannabinoids Ur Ql Scn Positive Abnormal - [facility] Opiates Ur Ql Scn Negative Normal - [facility] BKR DRUGS OF ABUSE NOTE Normal [facility] BKR METHADONE METABOLITE SCREEN, URINE, W/ CONF. Negative Normal - [facility] Amphetamines Ur Ql Scn Negative Normal - [facility] PCP Ur Ql Scn>25 ng/mL Negative Normal - [facility] Benzodiaz Ur Ql Scn Positive Abnormal - [facility] Barbiturates Ur Ql Scn Negative Normal - [facility] oxyCODONE Ur Ql Scn Negative Normal - [facility] BKR DRUGS OF ABUSE DISCLAIMER See Comment Normal [facility] BZE Ur Ql Scn Positive Abnormal - [facility] Cannabinoids Ur Ql Scn Positive Abnormal - [facility] Opiates Ur Ql Scn Negative Normal - [facility] BKR METHADONE METABOLITE SCREEN, URINE, NO CONF. Negative Normal - [facility] Amphetamines Ur Ql Scn Negative Normal - [facility]
== END 2024-07-09 15:37 | disposition home or self-care (01) ==
PROVIDERS: PCP Physician Assistant; Referring Provider Physician Assistant; Visit Provider Registered Nurse Emergency
DX: M47.816 Spondylosis without myelopathy or radiculopathy, lumbar region (principal); M47.817 Spondylosis without myelopathy or radiculopathy, lumbosacral region; R20.2 Paresthesia of skin; M25.561 Pain in right knee
CPT/HCPCS: 99204

== ENCOUNTER → 2024-07-09 14:25 | Outpatient (BNVA) | payer MEDICAID, SELFPAY | PROVIDERS: PCP Physician Assistant; Referring Provider Physician Assistant; Visit Provider Registered Nurse Emergency | DX: M47.816 Spondylosis without myelopathy or radiculopathy, lumbar region (principal); M47.817 Spondylosis without myelopathy or radiculopathy, lumbosacral region; M25.561 Pain in right knee; R20.2 Paresthesia of skin | CPT/HCPCS: 99212 ==

== ENCOUNTER 2024-07-29 07:54 | Outpatient (REF) | payer OTHER, SELFPAY ==
--- NOTE | ~2024-07-29 | XR_ITS ---
CLINICAL HISTORY: M25.561 - Pain in right knee Right knee four views Comparison: None Findings: No acute fracture or dislocation noted. No significant joint effusion identified. Chondrocalcinosis consistent with CPPD. Mild degenerative change with joint space loss. No soft tissue foreign body. Impression: CPPD with mild degenerative change No acute bony abnormality This document has been electronically signed by: Simeon George MD on 07/29/2024 18:08:08
--- NOTE | ~2024-07-29 | XR_ITS ---
CLINICAL HISTORY: M47.817 - Spondylosis without myelopathy or radiculopathy, lumbosacral r... Lumbar spine five views Comparison: None Findings: No acute fracture or dislocation is demonstrated. Posterior alignment is normal throughout. Multilevel moderate degenerative change noted. No radiopaque foreign bodies noted. Impression: No acute processes This document has been electronically signed by: Simeon George MD on 07/29/2024 18:05:07
--- NOTE | 2024-07-29 07:57 | EMG_ITS ---
Right tibial and peroneal motor studies were performed. Right superficial peroneal, sural, and lateral femoral cutaneous sensory studies were performed. Tibial H-reflex was obtained and paraspinal muscles were tested with a needle. IMPRESSION: 1. 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 MD DANNY Byrne/MANUEL / [phone]
--- OUTSIDE RECORDS SUMMARY | 2024-07-29 07:57 | XMS_ITS | Clinical Summary ---
Author Organization [facility] [address] [facility] Address [address] [place] [address] Phone Care Team Providers Care Qa Consultant Name Role Phone Bruno Melo Primary Care [...] Years Used Date Smoking Tobacco: Never Assessed [facility] Utilities Answer Date Recorded In the past 12 months has [employer], gas, oil, or water [employer] threatened to shut off services in your [...] Due Date Last Done Comments Pneumococcal Vaccine (50+ years) (1 of 2 - PCV) 1975 HIV [...] - 144 mmol/L 03/10/2024 6:57 AM EDT [facility] Potassium 3.8 3.3 - 5.3 mmol/L 03/10/2024 6:57 AM EDT [facility] Chloride 104 98 - 107 mmol/L 03/10/2024 6:57 AM EDT [facility] CO2 29 20 - 30 mmol/L 03/10/2024 6:57 AM EDT [facility] Anion Gap 8 7 - 17 03/10/2024 6:57 AM EDT [facility] Glucose 93 70 - 100 mg/dL 03/10/2024 6:57 AM EDT [facility] BUN 12 6 - 20 mg/dL 03/10/2024 6:57 AM EDT [facility] Creatinine 0.60 0.40 - 1.30 mg/dL 03/10/2024 6:57 AM EDT [facility] Calcium 9.2 8.8 - 10.2 mg/dL 03/10/2024 6:57 AM EDT [facility] BUN/Creatinine Ratio 20.0 8.0 - 23.0 03/10/2024 6:57 AM EDT [facility] eGFR (Creatinine) >60 >=60 mL/min/1.7 3m2 03/10/2024 6:57 AM EDT [facility] Comment: [facility] utilizes CKD-EPI Creatinine 2020 to report eGFR. Values < 60 mL/min/1.73 m2 may indicate CKD if present for more than three months AND creatinine is at steady state. The eGFR provides a rough estimate of kidney function. For further guidance, please refer to the CKD: Adult Supervisor Compressed Yeast Signature pathway. Blood Venipuncture / Unknown 03/10/2024 5:57 AM EDT 03/10/2024 6:26 AM EDT us Leonor Delgado APRN LAB BLOOD ORDERABLES Final Result Performing Organization Address [facility]/State/[facility] Co de Phone Number [facility] [address] [place] [address], [facility] [phone] * (ABNORMAL) Lipid panel (02/03/2024 5:21 AM EDT) [facility] Signature Cholesterol 123 See Comment mg/dL 02/03/2024 6:26 AM EDT [facility] Comment: Total Cholesterol (mg/dL) ?Adults (>18 years) ? Children (<18 years) Desirable ?<200 ? <170 Borderline-High ?200-239 ?170-199 High ? >=240 ?>=200 ? HDL 36(L) >=40 mg/dL 02/03/2024 6:26 [facility]IC[facility] Triglycerides 90 See Comment mg/dL 02/03/2024 6:26 [facility] Comment: Triglycerides (mg/dL) ?Adults (>18 years) ? Children (<18 years) Desirable ?<150 ? Not Established Borderline-High ?150-199 ?Not Established High ? 200-499 ?Not Established ?? Chol/HDL Ratio 3.4 0.0 - 5.0 02/03/2024 6:26 [facility] LDL Calculated 70 See Comment mg/dL 02/03/2024 6:26 [facility] Comment: Effective 11/02/2021, LDL [...] URRUTIA LAB BLOOD ORDERABLES Final Resul t [facility] [address] [place] [id number], [facility] [phone] * (ABNORMAL) Hemoglobin A1c (02/02/2024 6:01 AM EDT) Hemoglobin A1c 6.1(H) 4.0 - 5.6 % 02/03/2024 11:00 AM EDT [facility] Comment: Hemoglobin [...] mg/dL 128 mg/dL 02/03/2024 11:00 AM EDT [facility] Comment: Estimated average glucose (eAG) is a calculated value designed to estimate ??the expected average blood glucose level throughout the day from a single ??measurement of ??glycated hemoglobin A1C (HbA1c) and follows the calculation proposed by the [employer] (Diabetes Care 31: 1-6, 2008). It may have less accuracy in children, women and patients with certain erythrocyte disorders. Blood Venipuncture / Unknown 02/02/2024 6:01 AM EDT 02/02/2024 6:19 AM EDT us Anabella URRUTIA LAB BLOOD ORDERABLES Final Resul t [facility] [address] [place] [id number] [place] [id number] from Last 3 Months or Most Recently Relevant to Health Maintenance Insurance MEDICAID MANAGED [facility] [place]NA[place]ED [facility] [place]NA[place] [facility] Advance Directives * Full Code (Latest Code Status on File) Date Activated Date Inactivated Comments 10/21/2023 6:06 PM 03/13/2024 8:06 PM Care Teams Qa Consultant Relationship Specialty Start Date End Date Bruno Melo PA [address] [place] [address] [place] [address] PCP - General 11/22/23
--- OUTSIDE RECORDS SUMMARY | 2024-07-29 07:57 | XMS_ITS | Encounter Summary ---
Author Organization [facility] Address [address] [place] [address] Care Team Providers Care Immunopathologist Name Role Phone Bruno Melo Primary Care Provider + Encounter Details Date Type Department Care Team (Late st Contact Info) Description 10/31/2023 Scanned Document [facility] Laboratory Specimens [address] [place] [address] Juan Whelan PA [address] [place] [address] Social History Tobacco Use Types Packs/Day Years Used Date Smoking Tobacco: Never Assessed [facility] Utilities Answer Date Recorded In the past [...] documented as of this encounter Care Teams Immunopathologist Relationship Specialty Start Date End Date Bruno Melo PA [address] [place] [address] [place] [address] PCP - General 11/22/23 documented as of this encounter
[2024-07-29 08:51] LABS: Hematocrit 41.7 % (42.0-52.0); Hemoglobin 13.9 g/dl (14.0-18.0); Mean Corpuscular HGB Conc 33.3 g/dl (31.0-36.0); Mean Corpuscular Hemoglobin 30.8 pg (27.0-33.0); Mean Corpuscular Volume 92.5 fL (80.0-98.0); Mean Platelet Volume 10.9 fL (9.4-12.4); Platelet Count 241 X10*3/uL (160-400); Red Blood Count 4.51 X10*6/uL (4.60-5.80); Red Cell Distribution Width 14.2 % (11.0-16.0); White Blood Count 4.3 X10*3/uL (4.8-10.8)
[2024-07-29 09:55] LABS: Creatinine Urine 273.59 mg/dL; Microalbum/Creatinine Ratio Ur 4.7 ug/mg cr (<30)
[2024-07-29 10:03] LABS: Vitamin D 25-OH Total 30.5 ng/mL (>30)
== END 2024-07-29 07:55 | disposition home or self-care (01) ==
LOC: HO.NEURO 07:54
PROVIDERS: PCP Physician Assistant; Visit Provider Registered Nurse Emergency
DX: R20.2 Paresthesia of skin (principal); M47.817 Spondylosis without myelopathy or radiculopathy, lumbosacral region; M25.561 Pain in right knee; R79.89 Other specified abnormal findings of blood chemistry; R73.03 Prediabetes; I10 Essential (primary) hypertension
CPT/HCPCS: 36415; 72110; 73564; 82043; 82306; 82570; 85027; 95886; 95909

== ENCOUNTER → 2024-07-29 08:35 | Outpatient (BNV) | payer OTHER, SELFPAY | PROVIDERS: PCP Physician Assistant; Visit Provider Radiology Diagnostic Radiology | DX: M47.817 Spondylosis without myelopathy or radiculopathy, lumbosacral region (principal); M11.261 Other chondrocalcinosis, right knee | CPT/HCPCS: 72110; 73564 ==

== ENCOUNTER 2024-08-15 14:59 | Emergency (ER) | payer OTHER, SELFPAY ==
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
[2024-08-15 15:05] VITALS: BP 140/100; BP 157/93; PULSE 74; PULSE 78; RESP 18; TEMP 36.8; O2SAT 94; O2SAT 98; BMI 23.9
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
[2024-08-15 18:34] VITALS: BP 142/96; PULSE 67; RESP 20; TEMP 36.8; O2SAT 96
[2024-08-15 18:40] VITALS: BP 142/96; PULSE 67; RESP 20; TEMP 36.8; O2SAT 96
== END 2024-08-15 18:46 | disposition home or self-care (01) ==
PROVIDERS: Emergency Provider Emergency Medicine; PCP Physician Assistant
DX: S09.90XA Unspecified injury of head, initial encounter (principal); R51.9 Headache, unspecified; M54.2 Cervicalgia; V43.62XA Car passenger injured in collision with other type car in traffic accident, initial encounter; Y93.9 Activity, unspecified; Y92.410 Unspecified street and highway as the place of occurrence of the external cause; Y99.8 Other external cause status; Z87.820 Personal history of traumatic brain injury; Z79.899 Other long term (current) drug therapy
CPT/HCPCS: 70450; 72125; 99284

== ENCOUNTER → 2024-08-15 15:16 | Outpatient (BNV) | payer OTHER, SELFPAY | PROVIDERS: Emergency Provider Emergency Medicine; PCP Physician Assistant; Visit Provider Radiology Diagnostic Radiology | DX: R51.9 Headache, unspecified (principal) | CPT/HCPCS: 70450; 72125 ==

== ENCOUNTER 2024-08-22 14:35 | Outpatient (AMB) | payer OTHER, SELFPAY ==
[2024-08-22 14:38] VITALS: BP 134/108; PULSE 97; O2SAT 96; BMI 36.3
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
== END 2024-08-22 15:41 | disposition home or self-care (01) ==
LOC: HO.HMCH 14:36
PROVIDERS: PCP Physician Assistant; Visit Provider Nurse Practitioner Family
DX: M54.2 Cervicalgia (principal); M54.16 Radiculopathy, lumbar region

== ENCOUNTER 2024-09-18 14:06 | Outpatient (AMB) | payer OTHER, SELFPAY ==
[2024-09-18 14:22] VITALS: BP 144/94; PULSE 92; TEMP 36.2; O2SAT 97; BMI 37.2
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
--- OUTSIDE RECORDS SUMMARY | 2024-09-18 16:35 | XMS_ITS | Clinical Summary ---
Author Organization [facility] [address] [facility] Address [address] [place] [address] Phone Care Team Providers Care Cash Shortage Investigator Name Role Phone Bruno Melo Primary Care [...] Years Used Date Smoking Tobacco: Never Assessed [facility] Utilities Answer Date Recorded In the past 12 months has [employer], gas, oil, or water [employer] threatened to shut off services in your [...] Health Maintenance Due Date Last Done Comments HIV screening 1982 Hepatitis C screening 1987 Pneumococcal Vaccine (50+ years) (1 of 2 - PCV) 01/03/1988 Colon cancer screening, Colonoscopy 2014 Shingles vaccine (Shingrix) (1 of 2 - Shingrix (RZV) 2 Dose Standard Series) 2019 Tetanus adult (Td q 10,TDAP once) 04/04/2022 04/04/2012 Covid-19 vaccine series ( - season) 2024 Influenza vaccine 01/26/2025 Prediabetes Surveillance 02/01/2025 02/02/2024, 06/0 05/2023 Diabetes screening 03/10/2027 03/10/2024, 1 , 03/01/2024, Additional history exists Lipid disorder screening 02/02/2029 02/03/2024 RSV Immunization (1 - 1-dose 75+ series) 01/03/2044 Meningococcal [...] - 144 mmol/L 03/10/2024 6:57 AM EDT [facility] Potassium 3.8 3.3 - 5.3 mmol/L 03/10/2024 6:57 AM EDT [facility] Chloride 104 98 - 107 mmol/L 03/10/2024 6:57 AM EDT [facility] CO2 29 20 - 30 mmol/L 03/10/2024 6:57 AM EDT [facility] Anion Gap 8 7 - 17 03/10/2024 6:57 AM EDT [facility] Glucose 93 70 - 100 mg/dL 03/10/2024 6:57 AM EDT [facility] BUN 12 6 - 20 mg/dL 03/10/2024 6:57 AM EDT [facility] Creatinine 0.60 0.40 - 1.30 mg/dL 03/10/2024 6:57 AM EDT [facility] Calcium 9.2 8.8 - 10.2 mg/dL 03/10/2024 6:57 AM EDT [facility] BUN/Creatinine Ratio 20.0 8.0 - 23.0 03/10/2024 6:57 AM EDT [facility] eGFR (Creatinine) >60 >=60 mL/min/1.7 3m2 03/10/2024 6:57 AM EDT [facility] Comment: [facility] utilizes CKD-EPI Creatinine 2020 to report eGFR. Values < 60 mL/min/1.73 m2 may indicate CKD if present for more than three months AND creatinine is at steady state. The eGFR provides a rough estimate of kidney function. For further guidance, please refer to the CKD: Adult [employer] Signature pathway. Blood Venipuncture / Unknown 03/10/2024 5:57 AM EDT 03/10/2024 6:26 AM EDT us Leonor Delgado APRN LAB BLOOD ORDERABLES Final Result Performing Organization Address [facility]/State/[facility] Co de Phone Number [facility] [address] [place] [address], [facility] [phone] * (ABNORMAL) Lipid panel (02/03/2024 5:21 AM EDT) [facility] Signature Cholesterol 123 See Comment mg/dL 02/03/2024 6:26 AM EDT [facility] Comment: Total Cholesterol (mg/dL) ?Adults (>18 years) ? Children (<18 years) Desirable ?<200 ? <170 Borderline-High ?200-239 ?170-199 High ? >=240 ?>=200 ? HDL 36(L) >=40 mg/dL 02/03/2024 6:26 [facility] Triglycerides 90 See Comment mg/dL 02/03/2024 6:26 [facility] Comment: Triglycerides (mg/dL) ?Adults (>18 years) ? Children (<18 years) Desirable ?<150 ? Not Established Borderline-High ?150-199 ?Not Established High ? 200-499 ?Not Established ?? Chol/HDL Ratio 3.4 0.0 - 5.0 02/03/2024 6:26 [facility] LDL Calculated 70 See Comment mg/dL 02/03/2024 6:26 [facility] Comment: Effective [...] [facility] LAB BLOOD ORDERABLES Final Resul t [facility] [address] [place] [address], [facility] [phone] * (ABNORMAL) Hemoglobin A1c (02/02/2024 6:01 AM EDT) Hemoglobin A1c 6.1(H) 4.0 - 5.6 % 02/03/2024 11:00 AM EDT [facility] Comment: Hemoglobin A1c [...] mg/dL 128 mg/dL 02/03/2024 11:00 AM EDT [facility] Comment: Estimated average glucose (eAG) is a calculated value designed to estimate ??the expected average blood glucose level throughout the day from a single ??measurement of ??glycated hemoglobin A1C (HbA1c) and follows the calculation proposed by the [place] [employer] (Diabetes Care 31: 1-6, 2008). It may have less accuracy in children, women and patients with certain erythrocyte disorders. Blood Venipuncture / Unknown 02/02/2024 6:01 AM EDT 02/02/2024 6:19 AM EDT us Anabella URRUTIA LAB BLOOD ORDERABLES Final Resul t [facility] [address] [place] [id number] [place] [address] from Last 3 Months or Most Recently Relevant to Health Maintenance Insurance MEDICAID MANAGED [facility] MEDICAID MANAGED [facility] MEDICAID MANAGED [facility] Advance Directives * Full Code (Latest Code Status on File) Date Activated Date Inactivated Comments 10/21/2023 6:06 PM 03/13/2024 8:06 PM Care Teams Cash Shortage Investigator Relationship Specialty Start Date End Date Bruno Melo PA [address] [place] [address] [place] [address] PCP - General 11/22/23
--- OUTSIDE RECORDS SUMMARY | 2024-09-18 16:35 | XMS_ITS | Encounter Summary ---
Author Organization [facility] Address [address] [place] [address] Care Team Providers Care Contract Negotiator Name Role Phone Bruno Melo Primary Care Provider + Encounter Details Date Type Department Care Team (Late st Contact Info) Description 10/31/2023 Scanned Document [facility] Laboratory Specimens [address] [place] [address] Juan Whelan PA [address] [place] [address] Social History Tobacco Use Types Packs/Day Years Used Date Smoking Tobacco: Never Assessed [facility] Utilities Answer Date Recorded In [...] documented as of this encounter Care Teams Contract Negotiator Relationship Specialty Start Date End Date Bruno Melo PA [address] [place] [address] [place] [phone] PCP - General 11/22/23 documented as of this encounter
== END 2024-09-18 14:49 | disposition home or self-care (01) ==
LOC: HO.HMCH 14:06
PROVIDERS: PCP Physician Assistant; Visit Provider Physician Assistant
DX: R73.03 Prediabetes (principal)

== ENCOUNTER → 2024-09-18 14:06 | Outpatient (BNVA) | payer OTHER, SELFPAY | PROVIDERS: PCP Physician Assistant; Visit Provider Physician Assistant | DX: Z00.00 Encounter for general adult medical examination without abnormal findings (principal); I10 Essential (primary) hypertension; F90.9 Attention-deficit hyperactivity disorder, unspecified type; F43.10 Post-traumatic stress disorder, unspecified; E66.812 Obesity, class 2; Z68.37 Body mass index [BMI] 37.0-37.9, adult; M54.16 Radiculopathy, lumbar region; F31.70 Bipolar disorder, currently in remission, most recent episode unspecified; E78.00 Pure hypercholesterolemia, unspecified; E11.65 Type 2 diabetes mellitus with hyperglycemia; S06.9X5D Unspecified intracranial injury with loss of consciousness greater than 24 hours with return to pre-existing conscious level, subsequent encounter; Z79.84 Long term (current) use of oral hypoglycemic drugs; Z79.899 Other long term (current) drug therapy; Z91.09 Other allergy status, other than to drugs and biological substances | CPT/HCPCS: 83036; 96127; 99396 ==

== ENCOUNTER 2024-11-17 13:53 | Outpatient (AMB) | payer OTHER, SELFPAY ==
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
[2024-11-17 14:18] VITALS: BP 126/74; PULSE 89; O2SAT 98; BMI 37.7
--- OUTSIDE RECORDS SUMMARY | 2024-11-17 15:25 | XMS_ITS | Encounter Summary ---
Author Organization [facility] Address [address] [place] [address] Care Team Providers Care Record Maker Name Role Phone Eduarod Castle MD Primary Care Provider [phone] Vidhi Corets MD Primary Care Provider [facility] Keily Harrison MD Unavailable Encounter Details Date Type Department Care Team Description 05/07/2014 Release of Information Medical Records [address] [place] [address] Abstract, Provider Social History Tobacco Use Types Packs/Day Years Used Date Smoking Tobacco: Every Day Alcohol Use Standard Drinks/Week Comments Yes 0 (1 standard drink = 0.6 oz pur e alcohol) Sex Assigned at Date Recorded Not on file documented as of this encounter Plan of Treatment Not on file documented as of this encounter Visit Diagnoses Not on filedocumented in this encounter Care Teams Record Maker Relationship Specialty Start Date End Date Eduardo Castle MD [address] [place] [id number] PCP - General Internal Medicine 04/08/14 08/08/23 Vidhi Cortes MD [address] [place] [id number] PCP - General Internal Medicine 08/09/23 Keily Harrison MD [address] [place] [id number] Lung Cancer Assistant Front End Manager 08/13/23 documented as of this encounter
== END 2024-11-17 14:56 | disposition home or self-care (01) ==
LOC: HO.HSMS 13:54
PROVIDERS: PCP Physician Assistant; Visit Provider Psychiatry & Neurology Neurology
DX: S06.9X5D Unspecified intracranial injury with loss of consciousness greater than 24 hours with return to pre-existing conscious level, subsequent encounter (principal); G44.309 Post-traumatic headache, unspecified, not intractable; R06.83 Snoring; G47.10 Hypersomnia, unspecified
CPT/HCPCS: 99204

== ENCOUNTER 2024-12-24 12:37 | Outpatient (AMB) | payer OTHER, SELFPAY ==
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
--- OUTSIDE RECORDS SUMMARY | 2024-12-24 13:11 | XMS_ITS | Encounter Summary ---
Author Organization [facility] Address [address] [place] [address] Care Team Providers Care Machine Tank Operator Name Role Phone Bruno Melo Primary Care Provider + Encounter Details Date Type Department Care Team (Late st Contact Info) Description 10/31/2023 Scanned Document [facility] Laboratory Specimens [address] [place] [address] Juan Whelan PA [address] [place] [address] Social History Tobacco Use Types Packs/Day Years Used Date Smoking Tobacco: Never Assessed [facility] Utilities Answer Date Recorded In the [...] documented as of this encounter Care Teams Machine Tank Operator Relationship Specialty Start Date End Date Bruno Melo PA [address] [place] [address] [place] [phone] PCP - General 11/22/23 documented as of this encounter
--- OUTSIDE RECORDS SUMMARY | 2024-12-24 13:12 | XMS_ITS ---
Author Name [facility] Organization Unknown Results Test Name/Text Value Interpretation Date Range Source Valproate SerPl-mCnc 77.7 ug/mL Normal 02 4 50 - 100 [facility] ALT SerPl w/o P-5'-P-cCnc 25.0 U/L Normal 4 9 - 59 [facility] AST/ALT SerPl-cRto 0.8 Normal 4 - [facility] AST SerPl w P-5'-P-cCnc 20.0 U/L Normal 4 10 - 35 [facility] ALP SerPl-cCnc 67.0 U/L Normal 4 9 - 122 [facility] Direct SerPl-mCnc <0.2 mg/dL Normal 4 - [facility] Bil[facility]ub SerPl-mCnc 0.2 mg/dL Normal 4 - [facility] GFR/BSA.pred SerPlBld LGU-HET-QcXErd >60.0 mL/min/1.73m2 Normal 4 - [facility] Glucose SerPl-mCnc 93.0 mg/dL Normal 4 70 - 100 [facility] Anion Gap3 SerPl-sCnc 8.0 Normal 4 7 - 17 [facility] Sodium SerPl-sCnc 141.0 mmol/L Normal 4 136 - 144 [facility] BUN SerPl-mCnc 12.0 mg/dL Normal 4 6 - 20 [facility] BUN/Creat SerPl 20.0 Normal 4 8 - 23 [facility] Chloride SerPl-sCnc 104.0 mmol/L Normal 03/10/20 2 4 98 - 107 [facility] Potassium SerPl-sCnc 3.8 mmol/L Normal 02 4 3.3 - 5.3 [facility] Calcium SerPl-mCnc 9.2 mg/dL Normal 4 8.8 - 10.2 [facility] Creat SerPl-mCnc 0.6 mg/dL Normal 4 0.4 - 1.3 [facility] HCO3 SerPl-sCnc 29.0 mmol/L Normal 4 20 - 30 [facility] MCHC RBC Auto-mCnc 32.3 g/dL Normal 4 31 - 36 [facility] MCV RBC Auto 88.5 fL Normal 4 80 - 100 [facility] PMV Bld Auto 11.9 fL Normal 4 8 - 12 [facility] RBC # Bld Auto 3.74 M/uL Below low normal 4 4 - 6 [facility] RDW RBC Auto-Rto 18.1 % Above high normal 4 11 - 15 [facility] WBC # Bld Auto 3.8 x1000/uL Below low normal 4 4 - 11 [facility] MCH RBC Qn Auto 28.6 pg Normal 4 27 - 33 [facility] Hct VFr Bld Auto 33.1 % Below low normal 02 4 38.5 - 50 [facility] Hgb Bld-mCnc 10.7 g/dL Below low normal 4 13.2 - 17.1 [facility] Neutrophils # Bld Auto 1.51 x 1000/uL Below low normal 4 2 - 7.6 [facility] Platelet # Bld Auto 165.0 x1000/uL Normal 4 150 - 420 [facility] Potassium SerPl-sCnc 3.7 mmol/L Normal 02 4 3.3 - 5.3 [facility] GFR/BSA.pred SerPlBld USP-CJN-LpKQyo >60.0 mL/min/1.73m2 Normal 4 - [facility] Glucose SerPl-mCnc 109.0 mg/dL Above high normal 02/25 4 70 - 100 [facility] BUN/Creat SerPl 18.6 Normal 4 8 - 23 [facility] Calcium SerPl-mCnc 9.4 mg/dL Normal 4 8.8 - 10.2 [facility] Sodium SerPl-sCnc 143.0 mmol/L Normal 4 136 - 144 [facility] Creat SerPl-mCnc 0.59 mg/dL Normal 4 0.4 - 1.3 [facility] HCO3 SerPl-sCnc 30.0 mmol/L Normal 4 20 - 30 [facility] Anion Gap3 SerPl-sCnc 9.0 Normal 4 7 - 17 [facility] BUN SerPl-mCnc 11.0 mg/dL Normal 4 6 - 20 [facility] Chloride SerPl-sCnc 104.0 mmol/L Normal 03/07/20 2 4 98 - 107 [facility] Neutrophils # Bld Auto 2.76 x 1000/uL Normal 4 2 - 7.6 [facility] MCV RBC Auto 88.6 fL Normal 4 80 - 100 [facility] Hgb Bld-mCnc 11.3 g/dL Below low normal 4 13.2 - 17.1 [facility] MCH RBC Qn Auto 27.4 pg Normal 4 27 - 33 [facility] WBC # Bld Auto 4.6 x1000/uL Normal 4 4 - 11 [facility] RBC # Bld Auto 4.13 M/uL Normal 4 4 - 6 [facility] Hct VFr Bld Auto 36.6 % Below low normal 02 4 38.5 - 50 [facility] PMV Bld Auto 12.2 fL Above high normal 4 8 - 12 [facility] Platelet # Bld Auto 193.0 x1000/uL Normal 4 150 - 420 [facility] MCHC RBC Auto-mCnc 30.9 g/dL Below low normal 03/07 4 31 - 36 [facility] RDW RBC Auto-Rto 18.3 % Above high normal 4 11 - 15 [facility] Glucose SerPl-mCnc 92.0 mg/dL Normal 4 70 - 100 [facility] Calcium SerPl-mCnc 9.1 mg/dL Normal 4 8.8 - 10.2 [facility] Anion Gap3 SerPl-sCnc 7.0 Normal 4 7 - 17 [facility] Chloride SerPl-sCnc 103.0 mmol/L Normal 03/01/20 2 4 98 - 107 [facility] Potassium SerPl-sCnc 3.4 mmol/L Normal 02 4 3.3 - 5.3 [facility] Creat SerPl-mCnc 0.56 mg/dL Normal 4 0.4 - 1.3 [facility] BUN SerPl-mCnc 10.0 mg/dL Normal 4 6 - 20 [facility] HCO3 SerPl-sCnc 34.0 mmol/L Above high normal 02 4 20 - 30 [facility] Sodium SerPl-sCnc 144.0 mmol/L Normal 4 136 - 144 [facility] BUN/Creat SerPl 17.9 Normal 4 8 - 23 [facility] GFR/BSA.pred SerPlBld TOE-PPV-NgBBjw >60.0 mL/min/1.73m2 Normal 4 - [facility] Hct VFr Bld Auto 33.2 % Below low normal 02 4 38.5 - 50 [facility] MCH RBC Qn Auto 27.1 pg Normal 4 27 - 33 [facility] MCV RBC Auto 88.3 fL Normal 4 80 - 100 [facility] Neutrophils # Bld Auto 1.94 x 1000/uL Below low normal 4 2 - 7.6 [facility] WBC # Bld Auto 4.2 x1000/uL Normal 4 4 - 11 [facility] Platelet # Bld Auto 240.0 x1000/uL Normal 4 150 - 420 [facility] PMV Bld Auto 11.9 fL Normal 4 8 - 12 [facility] RBC # Bld Auto 3.76 M/uL Below low normal 4 4 - 6 [facility] RDW RBC Auto-Rto 17.8 % Above high normal 4 11 - 15 [facility] Hgb Bld-mCnc 10.2 g/dL Below low normal 4 13.2 - 17.1 [facility] MCHC RBC Auto-mCnc 30.7 g/dL Below low normal 03/01 4 31 - 36 [facility] BUN/Creat SerPl 22.6 Normal 4 8 - 23 [facility] HCO3 SerPl-sCnc 36.0 mmol/L Above high normal 02 4 20 - 30 [facility] Sodium SerPl-sCnc 145.0 mmol/L Above high normal 02/27 4 136 - 144 [facility] GFR/BSA.pred SerPlBld OLF-KFP-VsCSpd >60.0 mL/min/1.73m2 Normal 4 - [facility] Glucose SerPl-mCnc 90.0 mg/dL Normal 4 70 - 100 [facility] Anion Gap3 SerPl-sCnc 5.0 Below low normal 4 7 - 17 [facility] BUN SerPl-mCnc 12.0 mg/dL Normal 4 6 - 20 [facility] Chloride SerPl-sCnc 104.0 mmol/L Normal 02/28/20 2 4 98 - 107 [facility] Creat SerPl-mCnc 0.53 mg/dL Normal 4 0.4 - 1.3 [facility] Calcium SerPl-mCnc 9.0 mg/dL Normal 4 8.8 - 10.2 [facility] Potassium SerPl-sCnc 3.4 mmol/L Normal 02 4 3.3 - 5.3 [facility] Imm Granulocytes/leuk NFr Bld Auto 0.3 % Normal 4 0 - 1 [facility] Neutrophils/leuk NFr Bld Auto 30.0 % Below low normal 4 39 - 72 [facility] Monocytes # Bld Auto 0.55 x 1000/uL Normal 02/27 4 0 - 1 [facility] MCV RBC Auto 88.8 fL Normal 4 80 - 100 [facility] Lymphocytes # Bld Auto 1.8 x 1000/uL Normal 4 0.6 - 3.7 [facility] Platelet # Bld Auto 255.0 x1000/uL Normal 4 150 - 420 [facility] RDW RBC Auto-Rto 18.3 % Above high normal 4 11 - 15 [facility] Eosinophil # Bld Auto 0.03 x 1000/uL Normal 4 0 - 1 [facility] Monocytes/leuk NFr Bld Auto 15.9 % Above high normal 4 4 - 12 [facility] Eosinophil/leuk NFr Bld Auto 0.9 % Normal 4 0 - 5 [facility] RBC # Bld Auto 3.84 M/uL Below low normal 4 4 - 6 [facility] WBC # Bld Auto 3.5 x1000/uL Below low normal 4 4 - 11 [facility] nRBC # Bld Auto 0.0 x 1000/uL Normal 4 0 - 1 [facility] Lymphocytes/leuk NFr Bld Auto 52.0 % Above high normal 4 17 - 50 [facility] Neutrophils # Bld Auto 1.04 x 1000/uL Below low normal 4 2 - 7.6 [facility] Hgb Bld-mCnc 10.5 g/dL Below low normal 4 13.2 - 17.1 [facility] Imm Granulocytes # Bld Auto 0.01 x 1000/uL Normal 4 0 - 0.3 [facility] Hct VFr Bld Auto 34.1 % Below low normal 02 4 38.5 - 50 [facility] MCH RBC Qn Auto 27.3 pg Normal 4 27 - 33 [facility] PMV Bld Auto 12.0 fL Normal 4 8 - 12 [facility] Basophils # Bld Auto 0.03 x 1000/uL Normal 02/27 4 0 - 1 [facility] MCHC RBC Auto-mCnc 30.8 g/dL Below low normal 02/27 4 31 - 36 [facility] Basophils/leuk NFr Bld Auto 0.9 % Normal 4 0 - 1.4 [facility] nRBC/100 WBC Bld Auto-Rto 0.0 % Normal 4 0 - 1 [facility] pO2 BldA 95.0 mmHg Normal 4 83 - 108 [facility] BKR FIO2 (ARTERIAL BG [place] QUESTION) 28.0 % Normal 4 [facility] ALLENS TEST PERFORMED (ARTERIAL BG [place] QUESTION) Yes Normal 4 [facility] pH BldA 7.46 units Above high normal 4 7.35 - 7.45 [facility] B[facility] LITER FLOW (ARTERIAL BG [place] QUESTION) 6.0 L/min Normal 4 [facility] Base excess std BldA Calc-sCnc 5.0 mmol/L Above high normal 4 - [facility] TEMPERATURE (ARTERIAL BG [place] QUESTION) 97.5 Fahrenheit Normal 4 [facility] OXYGEN MODE (ARTERIAL BG [place] QUESTION) Aerosol Mask/Collar Normal 4 [facility] B[facility] SP02 (ARTERIAL BG [place] QUESTION) 98.0 % Normal 4 [facility] HCO3 std BldA-sCnc 29.4 mmol/L Above high normal 01/27 4 21 - 28 [facility] SaO2 % BldA 98.0 % Normal 4 94 - 98 [facility] BKR ACTUAL RESPIRATORY RATE (ARTERIAL BG [place] QUESTION) 14.0 breaths/min Normal 4 [facility] pCO2 BldA 41.0 mmHg Normal 4 32 - 48 [facility] Glucose SerPl-mCnc 128.0 mg/dL Above high normal 01/27 4 70 - 100 [facility] HCO3 SerPl-sCnc 22.0 mmol/L Normal 4 20 - 30 [facility] BUN/Creat SerPl 25.0 Above high normal 02 4 8 - 23 [facility] Anion Gap3 SerPl-sCnc 13.0 Normal 4 7 - 17 [facility] Chloride SerPl-sCnc 101.0 mmol/L Normal 02/22/20 2 4 98 - 107 [facility] Sodium SerPl-sCnc 136.0 mmol/L Normal 4 136 - 144 [facility] BUN SerPl-mCnc 13.0 mg/dL Normal 4 6 - 20 [facility] GFR/BSA.pred SerPlBld PVX-QSQ-VaANpk >60.0 mL/min/1.73m2 Normal 4 - [facility] Potassium SerPl-sCnc 4.3 mmol/L Normal 02 4 3.3 - 5.3 [facility] Calcium SerPl-mCnc 9.5 mg/dL Normal 4 8.8 - 10.2 [facility] Creat SerPl-mCnc 0.52 mg/dL Normal 4 0.4 - 1.3 [facility] Basophils/leuk NFr Bld Auto 0.2 % Normal 4 0 - 1.4 [facility] Lymphocytes # Bld Auto 1.32 x 1000/uL Normal 4 0.6 - 3.7 [facility] Hgb Bld-mCnc 12.0 g/dL Below low normal 4 13.2 - 17.1 [facility] nRBC # Bld Auto 0.0 x 1000/uL Normal 4 0 - 1 [facility] Monocytes # Bld Auto 0.41 x 1000/uL Normal 02/21 4 0 - 1 [facility] Neutrophils/leuk NFr Bld Auto 67.6 % Normal 4 39 - 72 [facility] Eosinophil # Bld Auto 0.0 x 1000/uL Normal 02/21 4 0 - 1 [facility] Eosinophil/leuk NFr Bld Auto 0.0 % Normal 4 0 - 5 [facility] RBC # Bld Auto 4.47 M/uL Normal 4 4 - 6 [facility] PMV Bld Auto 12.2 fL Above high normal 4 8 - 12 [facility] MCHC RBC Auto-mCnc 30.9 g/dL Below low normal 02/21 4 31 - 36 [facility] Hct VFr Bld Auto 38.8 % Normal 4 38.5 - 50 [facility] nRBC/100 WBC Bld Auto-Rto 0.0 % Normal 4 0 - 1 [facility] WBC # Bld Auto 5.4 x1000/uL Normal 4 4 - 11 [facility] MCH RBC Qn Auto 26.8 pg Below low normal 02/22/20 2 4 27 - 33 [facility] MCV RBC Auto 86.8 fL Normal 4 80 - 100 [facility] Basophils # Bld Auto 0.01 x 1000/uL Normal 02/21 4 0 - 1 [facility] Imm Granulocytes # Bld Auto 0.01 x 1000/uL Normal 4 0 - 0.3 [facility] Imm Granulocytes/leuk NFr Bld Auto 0.2 % Normal 4 0 - 1 [facility] Monocytes/leuk NFr Bld Auto 7.6 % Normal 4 4 - 12 [facility] Platelet # Bld Auto 383.0 x1000/uL Normal 4 150 - 420 [facility] Lymphocytes/leuk NFr Bld Auto 24.4 % Normal 4 17 - 50 [facility] Neutrophils # Bld Auto 3.65 x 1000/uL Normal 4 2 - 7.6 [facility] RDW RBC Auto-Rto 17.2 % Above high normal 4 11 - 15 [facility] INR PPP 1.05 Normal 4 0.86 - 1.13 [facility] Prothrombin time 11.5 seconds Normal 4 9.6 - 12.3 [facility] aPTT PPP 36.5 seconds Above high normal 4 23 - 31 [facility] BUN SerPl-mCnc 15.0 mg/dL Normal 4 6 - 20 [facility] Sodium SerPl-sCnc 143.0 mmol/L Normal 4 136 - 144 [facility] HCO3 SerPl-sCnc 30.0 mmol/L Normal 4 20 - 30 [facility] BUN/Creat SerPl 25.4 Above high normal 02 4 8 - 23 [facility] Chloride SerPl-sCnc 101.0 mmol/L Normal 02/21/20 2 4 98 - 107 [facility] Calcium SerPl-mCnc 9.1 mg/dL Normal 4 8.8 - 10.2 [facility] Creat SerPl-mCnc 0.59 mg/dL Normal 4 0.4 - 1.3 [facility] Glucose SerPl-mCnc 83.0 mg/dL Normal 4 70 - 100 [facility] GFR/BSA.pred SerPlBld SCX-UHG-CsMQxf >60.0 mL/min/1.73m2 Normal 4 - [facility] Anion Gap3 SerPl-sCnc 12.0 Normal 4 7 - 17 [facility] Potassium SerPl-sCnc 3.4 mmol/L Normal 02 4 3.3 - 5.3 [facility] RDW RBC Auto-Rto 17.4 % Above high normal 4 11 - 15 [facility] Platelet # Bld Auto 346.0 x1000/uL Normal 4 150 - 420 [facility] Imm Granulocytes/leuk NFr Bld Auto 0.2 % Normal 4 0 - 1 [facility] nRBC/100 WBC Bld Auto-Rto 0.0 % Normal 4 0 - 1 [facility] MCH RBC Qn Auto 27.0 pg Normal 4 27 - 33 [facility] Lymphocytes # Bld Auto 2.08 x 1000/uL Normal 4 0.6 - 3.7 [facility] WBC # Bld Auto 4.5 x1000/uL Normal 4 4 - 11 [facility] Imm Granulocytes # Bld Auto 0.01 x 1000/uL Normal 4 0 - 0.3 [facility] Hgb Bld-mCnc 9.6 g/dL Below low normal 4 13.2 - 17.1 [facility] Neutrophils # Bld Auto 1.78 x 1000/uL Below low normal 4 2 - 7.6 [facility] MCV RBC Auto 86.8 fL Normal 4 80 - 100 [facility] Eosinophil/leuk NFr Bld Auto 0.9 % Normal 4 0 - 5 [facility] Neutrophils/leuk NFr Bld Auto 39.9 % Normal 4 39 - 72 [facility] Lymphocytes/leuk NFr Bld Auto 46.5 % Normal 4 17 - 50 [facility] Monocytes/leuk NFr Bld Auto 11.6 % Normal 4 4 - 12 [facility] nRBC # Bld Auto 0.0 x 1000/uL Normal 4 0 - 1 [facility] Basophils/leuk NFr Bld Auto 0.9 % Normal 4 0 - 1.4 [facility] Monocytes # Bld Auto 0.52 x 1000/uL Normal 02/20 4 0 - 1 [facility] Eosinophil # Bld Auto 0.04 x 1000/uL Normal 01/27 4 0 - 1 [facility] RBC # Bld Auto 3.55 M/uL Below low normal 4 4 - 6 [facility] Hct VFr Bld Auto 30.8 % Below low normal 02 4 38.5 - 50 [facility] Basophils # Bld Auto 0.04 x 1000/uL Normal 02/20 4 0 - 1 [facility] PMV Bld Auto 12.0 fL Normal 4 8 - 12 [facility] MCHC RBC Auto-mCnc 31.2 g/dL Normal 4 31 - 36 [facility] Potassium SerPl-sCnc 3.3 mmol/L Normal 02 4 3.3 - 5.3 [facility] HCO3 SerPl-sCnc 30.0 mmol/L Normal 4 20 - 30 [facility] Albumin SerPl BCG-mCnc 3.1 g/dL Below low normal 4 3.6 - 5.1 [facility] Globulin Plas-mCnc 2.9 g/dL Normal 4 2 - 3.9 [facility] Bilirub SerPl-mCnc 0.2 mg/dL Normal 4 - [facility] BUN/Creat SerPl 24.1 Above high normal 02 4 8 - 23 [facility] ALT SerPl w/o P-5'-P-cCnc 9.0 U/L Normal 4 9 - 59 [facility] BUN SerPl-mCnc 14.0 mg/dL Normal 4 6 - 20 [facility] AST/ALT SerPl-cRto 1.8 Normal 4 - [facility] AST SerPl w P-5'-P-cCnc 16.0 U/L Normal 4 10 - 35 [facility] ALP SerPl-cCnc 72.0 U/L Normal 4 9 - 122 [facility] Calcium SerPl-mCnc 9.1 mg/dL Normal 4 8.8 - 10.2 [facility] Sodium SerPl-sCnc 140.0 mmol/L Normal 4 136 - 144 [facility] Anion Gap3 SerPl-sCnc 8.0 Normal 4 7 - 17 [facility] Albumin/Glob SerPl 1.1 Normal 4 1 - 2.2 [facility] Prot SerPl-mCnc 6.0 g/dL Normal 4 5.9 - 8.3 [facility] GFR/BSA.pred SerPlBld VZE-ELJ-VvXBui >60.0 mL/min/1.73m2 Normal 4 - [facility] Glucose SerPl-mCnc 163.0 mg/dL Above high normal 01/27 4 70 - 100 [facility] Chloride SerPl-sCnc 102.0 mmol/L Normal 02/19/20 2 4 98 - 107 [facility] Creat SerPl-mCnc 0.58 mg/dL Normal 4 0.4 - 1.3 [facility] Magnesium SerPl-mCnc 1.8 mg/dL Normal 02 4 1.7 - 2.4 [facility] Hgb Bld-mCnc 8.8 g/dL Below low normal 4 13.2 - 17.1 [facility] WBC # Bld Auto 4.5 x1000/uL Normal 4 4 - 11 [facility] Neutrophils # Bld Auto 3.49 x 1000/uL Normal 4 2 - 7.6 [facility] Basophils # Bld Auto 0.01 x 1000/uL Normal 02/18 4 0 - 1 [facility] Neutrophils/leuk NFr Bld Auto 76.9 % Above high normal 4 39 - 72 [facility] MCHC RBC Auto-mCnc 31.7 g/dL Normal 4 31 - 36 [facility] Monocytes/leuk NFr Bld Auto 5.1 % Normal 4 4 - 12 [facility] Eosinophil/leuk NFr Bld Auto 0.2 % Normal 4 0 - 5 [facility] RDW RBC Auto-Rto 16.9 % Above high normal 4 11 - 15 [facility] RBC # Bld Auto 3.23 M/uL Below low normal 4 4 - 6 [facility] Monocytes # Bld Auto 0.23 x 1000/uL Normal 02/18 4 0 - 1 [facility] Lymphocytes # Bld Auto 0.78 x 1000/uL Normal 4 0.6 - 3.7 [facility] PMV Bld Auto 12.0 fL Normal 4 8 - 12 [facility] Basophils/leuk NFr Bld Auto 0.2 % Normal 4 0 - 1.4 [facility] nRBC # Bld Auto 0.0 x 1000/uL Normal 4 0 - 1 [facility] Platelet # Bld Auto 357.0 x1000/uL Normal 4 150 - 420 [facility] Lymphocytes/leuk NFr Bld Auto 17.2 % Normal 4 17 - 50 [facility] MCV RBC Auto 86.1 fL Normal 4 80 - 100 [facility] Imm Granulocytes/leuk NFr Bld Auto 0.4 % Normal 4 0 - 1 [facility] MCH RBC Qn Auto 27.2 pg Normal 4 27 - 33 [facility] Imm Granulocytes # Bld Auto 0.02 x 1000/uL Normal 4 0 - 0.3 [facility] nRBC/100 WBC Bld Auto-Rto 0.0 % Normal 4 0 - 1 [facility] Eosinophil # Bld Auto 0.01 x 1000/uL Normal 01/27 4 0 - 1 [facility] Hct VFr Bld Auto 27.8 % Below low normal 02 4 38.5 - 50 [facility] Lactate SerPl-sCnc 1.0 mmol/L Normal 4 0.5 - 2.2 [facility] HCO3 SerPl-sCnc 28.0 mmol/L Normal 4 20 - 30 [facility] GFR/BSA.pred SerPlBld VZW-TSX-YgTQgo >60.0 mL/min/1.73m2 Normal 4 - [facility] BUN SerPl-mCnc 11.0 mg/dL Normal 4 6 - 20 [facility] Chloride SerPl-sCnc 102.0 mmol/L Normal 02/16/20 2 4 98 - 107 [facility] Calcium SerPl-mCnc 9.4 mg/dL Normal 4 8.8 - 10.2 [facility] Creat SerPl-mCnc 0.54 mg/dL Normal 4 0.4 - 1.3 [facility] Anion Gap3 SerPl-sCnc 10.0 Normal 4 7 - 17 [facility] Potassium SerPl-sCnc 3.7 mmol/L Normal 02 4 3.3 - 5.3 [facility] Glucose SerPl-mCnc 115.0 mg/dL Above high normal 01/27 4 70 - 100 [facility] Sodium SerPl-sCnc 140.0 mmol/L Normal 4 136 - 144 [facility] BUN/Creat SerPl 20.4 Normal 4 8 - 23 [facility] AST/ALT SerPl-cRto 1.4 Normal 4 - [facility] Albumin SerPl BCG-mCnc 3.1 g/dL Below low normal 4 3.6 - 5.1 [facility] Bilirub Direct SerPl-mCnc <0.2 mg/dL Normal 4 - [facility] Globulin Plas-mCnc 3.3 g/dL Normal 4 2 - 3.9 [facility] Prot SerPl-mCnc 6.4 g/dL Normal 4 5.9 - 8.3 [facility] ALT SerPl w/o P-5'-P-cCnc 12.0 U/L Normal 4 9 - 59 [facility] Albumin/Glob SerPl 0.9 Below low normal 02/15 4 1 - 2.2 [facility] Bilirub SerPl-mCnc 0.2 mg/dL Normal 4 - [facility] AST SerPl w P-5'-P-cCnc 17.0 U/L Normal 4 10 - 35 [facility] ALP SerPl-cCnc 85.0 U/L Normal 4 9 - 122 [facility] Platelet # Bld Auto 331.0 x1000/uL Normal 4 150 - 420 [facility] Monocytes # Bld Auto 0.55 x 1000/uL Normal 02/15 4 0 - 1 [facility] Hgb Bld-mCnc 9.2 g/dL Below low normal 4 13.2 - 17.1 [facility] Monocytes/leuk NFr Bld Auto 12.0 % Normal 4 4 - 12 [facility] Lymphocytes/leuk NFr Bld Auto 27.9 % Normal 4 17 - 50 [facility] nRBC/100 WBC Bld Auto-Rto 0.0 % Normal 4 0 - 1 [facility] Eosinophil # Bld Auto 0.05 x 1000/uL Normal 01/27 4 0 - 1 [facility] Eosinophil/leuk NFr Bld Auto 1.1 % Normal 4 0 - 5 [facility] Imm Granulocytes/leuk NFr Bld Auto 0.7 % Normal 4 0 - 1 [facility] Basophils/leuk NFr Bld Auto 0.4 % Normal 4 0 - 1.4 [facility] WBC # Bld Auto 4.6 x1000/uL Normal 4 4 - 11 [facility] MCV RBC Auto 86.7 fL Normal 4 80 - 100 [facility] Hct VFr Bld Auto 28.7 % Below low normal 02 4 38.5 - 50 [facility] Neutrophils/leuk NFr Bld Auto 57.9 % Normal 4 39 - 72 [facility] Neutrophils # Bld Auto 2.65 x 1000/uL Normal 4 2 - 7.6 [facility] PMV Bld Auto 11.7 fL Normal 4 8 - 12 [facility] nRBC # Bld Auto 0.0 x 1000/uL Normal 4 0 - 1 [facility] Lymphocytes # Bld Auto 1.28 x 1000/uL Normal 4 0.6 - 3.7 [facility] Basophils # Bld Auto 0.02 x 1000/uL Normal 02/15 4 0 - 1 [facility] RDW RBC Auto-Rto 16.5 % Above high normal 4 11 - 15 [facility] RBC # Bld Auto 3.31 M/uL Below low normal 4 4 - 6 [facility] Imm Granulocytes # Bld Auto 0.03 x 1000/uL Normal 4 0 - 0.3 [facility] MCHC RBC Auto-mCnc 32.1 g/dL Normal 4 31 - 36 [facility] MCH RBC Qn Auto 27.8 pg Normal 4 27 - 33 [facility] SaO2 % BldA 98.0 % Normal 4 94 - 98 [facility] pCO2 BldA 39.0 mmHg Normal 4 32 - 48 [facility] HCO3 std BldA-sCnc 30.3 mmol/L Above high normal 01/27 4 21 - 28 [facility] Base excess std BldA Calc-sCnc 7.0 mmol/L Above high normal 4 - [facility] pO2 BldA 121.0 mmHg Above high normal 4 83 - 108 [facility] BKR TEMPERATURE (ARTERIAL BG [place] QUESTION) 98.4 Fahrenheit Normal 4 [facility] pH BldA 7.5 units Above high normal 4 7.35 - 7.45 [facility] Chloride SerPl-sCnc 102.0 mmol/L Normal 02/15/20 2 4 98 - 107 [facility] Calcium SerPl-mCnc 9.4 mg/dL Normal 4 8.8 - 10.2 [facility] Potassium SerPl-sCnc 3.7 mmol/L Normal 02 4 3.3 - 5.3 [facility] GFR/BSA.pred SerPlBld BCL-IUH-ArOMxn >60.0 mL/min/1.73m2 Normal 4 - [facility] Creat SerPl-mCnc 0.52 mg/dL Normal 4 0.4 - 1.3 [facility] Sodium SerPl-sCnc 142.0 mmol/L Normal 4 136 - 144 [facility] HCO3 SerPl-sCnc 29.0 mmol/L Normal 4 20 - 30 [facility] BUN/Creat SerPl 21.2 Normal 4 8 - 23 [facility] Anion Gap3 SerPl-sCnc 11.0 Normal 4 7 - 17 [facility] Glucose SerPl-mCnc 93.0 mg/dL Normal 4 70 - 100 [facility] BUN SerPl-mCnc 11.0 mg/dL Normal 4 6 - 20 [facility] Magnesium SerPl-mCnc 1.9 mg/dL Normal 02 4 1.7 - 2.4 [facility] Basophils/leuk NFr Bld Auto 0.7 % Normal 4 0 - 1.4 [facility] MCV RBC Auto 87.5 fL Normal 4 80 - 100 [facility] Hct VFr Bld Auto 33.5 % Below low normal 02 4 38.5 - 50 [facility] RDW RBC Auto-Rto 16.5 % Above high normal 4 11 - 15 [facility] Lymphocytes # Bld Auto 1.58 x 1000/uL Normal 4 0.6 - 3.7 [facility] Monocytes # Bld Auto 0.79 x 1000/uL Normal 02/14 4 0 - 1 [facility] Imm Granulocytes # Bld Auto 0.04 x 1000/uL Normal 4 0 - 0.3 [facility] Lymphocytes/leuk NFr Bld Auto 26.0 % Normal 4 17 - 50 [facility] Basophils # Bld Auto 0.04 x 1000/uL Normal 02/14 4 0 - 1 [facility] MCHC RBC Auto-mCnc 31.6 g/dL Normal 4 31 - 36 [facility] Neutrophils/leuk NFr Bld Auto 57.8 % Normal 4 39 - 72 [facility] Eosinophil/leuk NFr Bld Auto 1.8 % Normal 4 0 - 5 [facility] WBC # Bld Auto 6.1 x1000/uL Normal 4 4 - 11 [facility] nRBC/100 WBC Bld Auto-Rto 0.0 % Normal 4 0 - 1 [facility] RBC # Bld Auto 3.83 M/uL Below low normal 4 4 - 6 [facility] nRBC # Bld Auto 0.0 x 1000/uL Normal 4 0 - 1 [facility] Neutrophils # Bld Auto 3.51 x 1000/uL Normal 4 2 - 7.6 [facility] Monocytes/leuk NFr Bld Auto 13.0 % Above high normal 4 4 - 12 [facility] Platelet # Bld Auto 395.0 x1000/uL Normal 4 150 - 420 [facility] Eosinophil # Bld Auto 0.11 x 1000/uL Normal 01/27 4 0 - 1 [facility] Hgb Bld-mCnc 10.6 g/dL Below low normal 4 13.2 - 17.1 [facility] MCH RBC Qn Auto 27.7 pg Normal 4 27 - 33 [facility] PMV Bld Auto 10.9 fL Normal 4 8 - 12 [facility] Imm Granulocytes/leuk NFr Bld Auto 0.7 % Normal 4 0 - 1 [facility] Calcium SerPl-mCnc 9.3 mg/dL Normal 4 8.8 - 10.2 [facility] BUN SerPl-mCnc 12.0 mg/dL Normal 4 6 - 20 [facility] Albumin/Glob SerPl 1.0 Normal 4 1 - 2.2 [facility] ALP SerPl-cCnc 81.0 U/L Normal 4 9 - 122 [facility] Prot SerPl-mCnc 6.1 g/dL Normal 4 5.9 - 8.3 [facility] ALT SerPl w/o P-5'-P-cCnc 16.0 U/L Normal 4 9 - 59 [facility] Albumin SerPl BCG-mCnc 3.0 g/dL Below low normal 4 3.6 - 5.1 [facility] Bilirub SerPl-mCnc <0.2 mg/dL Normal 4 - [facility] Globulin Plas-mCnc 3.1 g/dL Normal 4 2 - 3.9 [facility] Creat SerPl-mCnc 0.49 mg/dL Normal 4 0.4 - 1.3 [facility] AST SerPl w P-5'-P-cCnc 22.0 U/L Normal 4 10 - 35 [facility] Chloride SerPl-sCnc 100.0 mmol/L Normal 02/13/20 2 4 98 - 107 [facility] GFR/BSA.pred SerPlBld LOX-AEO-InFWpu >60.0 mL/min/1.73m2 Normal 4 - [facility] Sodium SerPl-sCnc 140.0 mmol/L Normal 4 136 - 144 [facility] Potassium SerPl-sCnc 3.6 mmol/L Normal 02 4 3.3 - 5.3 [facility] Glucose SerPl-mCnc 99.0 mg/dL Normal 4 70 - 100 [facility] BUN/Creat SerPl 24.5 Above high normal 02 4 8 - 23 [facility] AST/ALT SerPl-cRto 1.4 Normal 4 - [facility] Anion Gap3 SerPl-sCnc 9.0 Normal 4 7 - 17 [facility] HCO3 SerPl-sCnc 31.0 mmol/L Above high normal 02 4 20 - 30 [facility] Imm Granulocytes/leuk NFr Bld Auto 0.6 % Normal 4 0 - 1 [facility] Hgb Bld-mCnc 9.6 g/dL Below low normal 4 13.2 - 17.1 [facility] Basophils/leuk NFr Bld Auto 0.5 % Normal 4 0 - 1.4 [facility] Neutrophils/leuk NFr Bld Auto 62.1 % Normal 4 39 - 72 [facility] nRBC # Bld Auto 0.0 x 1000/uL Normal 4 0 - 1 [facility] Monocytes/leuk NFr Bld Auto 10.7 % Normal 4 4 - 12 [facility] WBC # Bld Auto 6.5 x1000/uL Normal 4 4 - 11 [facility] Imm Granulocytes # Bld Auto 0.04 x 1000/uL Normal 4 0 - 0.3 [facility] MCH RBC Qn Auto 26.6 pg Below low normal 02/13/20 2 4 27 - 33 [facility] PMV Bld Auto 10.9 fL Normal 4 8 - 12 [facility] Basophils # Bld Auto 0.03 x 1000/uL Normal 02/12 4 0 - 1 [facility] nRBC/100 WBC Bld Auto-Rto 0.0 % Normal 4 0 - 1 [facility] Lymphocytes/leuk NFr Bld Auto 24.3 % Normal 4 17 - 50 [facility] Platelet # Bld Auto 427.0 x1000/uL Above high normal 0 4 150 - 420 [facility] Eosinophil # Bld Auto 0.12 x 1000/uL Normal 01/26 4 0 - 1 [facility] RBC # Bld Auto 3.61 M/uL Below low normal 4 4 - 6 [facility] Eosinophil/leuk NFr Bld Auto 1.8 % Normal 4 0 - 5 [facility] RDW RBC Auto-Rto 16.4 % Above high normal 4 11 - 15 [facility] Hct VFr Bld Auto 31.0 % Below low normal 02 4 38.5 - 50 [facility] Monocytes # Bld Auto 0.7 x 1000/uL Normal 4 0 - 1 [facility] MCV RBC Auto 85.9 fL Normal 4 80 - 100 [facility] Neutrophils # Bld Auto 4.05 x 1000/uL Normal 4 2 - 7.6 [facility] MCHC RBC Auto-mCnc 31.0 g/dL Normal 4 31 - 36 [facility] Lymphocytes # Bld Auto 1.59 x 1000/uL Normal 4 0.6 - 3.7 [facility] NT-proBNP SerPl-mCnc 80.0 pg/mL Normal 02 4 - 125 [facility] AST/ALT SerPl-cRto 1.5 Normal 4 - [facility] Bilirub SerPl-mCnc 0.2 mg/dL Normal 4 - [facility] Chloride SerPl-sCnc 99.0 mmol/L Normal 02/12/20 2 4 98 - 107 [facility] Calcium SerPl-mCnc 9.9 mg/dL Normal 4 8.8 - 10.2 [facility] Glucose SerPl-mCnc 95.0 mg/dL Normal 4 70 - 100 [facility] ALP SerPl-cCnc 79.0 U/L Normal 4 9 - 122 [facility] Albumin/Glob SerPl 1.0 Normal 4 1 - 2.2 [facility] HCO3 SerPl-sCnc 30.0 mmol/L Normal 4 20 - 30 [facility] ALT SerPl w/o P-5'-P-cCnc 15.0 U/L Normal 4 9 - 59 [facility] GFR/BSA.pred SerPlBld [id number] >60.0 mL/min/1.73m2 Normal 4 - [facility] Albumin SerPl BCG-mCnc 3.3 g/dL Below low normal 4 3.6 - 5.1 [facility] Potassium SerPl-sCnc 3.5 mmol/L Normal 02 4 3.3 - 5.3 [facility] Creat SerPl-mCnc 0.55 mg/dL Normal 4 0.4 - 1.3 [facility] AST SerPl w P-5'-P-cCnc 22.0 U/L Normal 4 10 - 35 [facility] BUN SerPl-mCnc 13.0 mg/dL Normal 4 6 - 20 [facility] Prot SerPl-mCnc 6.7 g/dL Normal 4 5.9 - 8.3 [facility] Globulin Plas-mCnc 3.4 g/dL Normal 4 2 - 3.9 [facility] Sodium SerPl-sCnc 143.0 mmol/L Normal 4 136 - 144 [facility] BUN/Creat SerPl 23.6 Above high normal 02 4 8 - 23 [facility] Anion Gap3 SerPl-sCnc 14.0 Normal 4 7 - 17 [facility] Hgb Bld-mCnc 10.0 g/dL Below low normal 4 13.2 - 17.1 [facility] Basophils # Bld Auto 0.03 x 1000/uL Normal 02/11 4 0 - 1 [facility] Hct VFr Bld Auto 32.3 % Below low normal 02 4 38.5 - 50 [facility] Imm Granulocytes/leuk NFr Bld Auto 1.3 % Above high normal 4 0 - 1 [facility] Lymphocytes # Bld Auto 1.58 x 1000/uL Normal 4 0.6 - 3.7 [facility] Platelet # Bld Auto 435.0 x1000/uL Above high normal 0 4 150 - 420 [facility] Neutrophils # Bld Auto 2.86 x 1000/uL Normal 4 2 - 7.6 [facility] PMV Bld Auto 10.8 fL Normal 4 8 - 12 [facility] MCHC RBC Auto-mCnc 31.0 g/dL Normal 4 31 - 36 [facility] Monocytes # Bld Auto 0.66 x 1000/uL Normal 02/11 4 0 - 1 [facility] RBC Qn Auto 26.6 pg Below low normal 02/12/20 2 4 27 - 33 [facility] RBC # Bld Auto 3.76 M/uL Below low normal 4 4 - 6 [facility] MCV RBC Auto 85.9 fL Normal 4 80 - 100 [facility] Basophils/leuk NFr Bld Auto 0.6 % Normal 4 0 - 1.4 [facility] RDW RBC Auto-Rto 16.2 % Above high normal 4 11 - 15 [facility] Monocytes/leuk NFr Bld Auto 12.5 % Above high normal 4 4 - 12 [facility] Eosinophil/leuk NFr Bld Auto 1.3 % Normal 4 0 - 5 [facility] Neutrophils/leuk NFr Bld Auto 54.3 % Normal 4 39 - 72 [facility] nRBC # Bld Auto 0.0 x 1000/uL Normal 4 0 - 1 [facility] Imm Granulocytes # Bld Auto 0.07 x 1000/uL Normal 4 0 - 0.3 [facility] nRBC/100 WBC Bld Auto-Rto 0.0 % Normal 4 0 - 1 [facility] Lymphocytes/leuk NFr Bld Auto 30.0 % Normal 4 17 - 50 [facility] WBC # Bld Auto 5.3 x1000/uL Normal 4 4 - 11 [facility] Eosinophil # Bld Auto 0.07 x 1000/uL Normal 01/26 4 0 - 1 [facility] Albumin/Glob SerPl 0.8 Below low normal 02/10 4 1 - 2.2 [facility] HCO3 SerPl-sCnc 33.0 mmol/L Above high normal 02 4 20 - 30 [facility] Potassium SerPl-sCnc 3.7 mmol/L Normal 02 4 3.3 - 5.3 [facility] BUN/Creat SerPl 26.1 Above high normal 02 4 8 - 23 [facility] Prot SerPl-mCnc 6.4 g/dL Normal 4 5.9 - 8.3 [facility] Creat SerPl-mCnc 0.46 mg/dL Normal 4 0.4 - 1.3 [facility] Globulin Plas-mCnc 3.5 g/dL Normal 4 2 - 3.9 [facility] AST/ALT SerPl-cRto 0.9 Normal 4 - [facility] Chloride SerPl-sCnc 100.0 mmol/L Normal 02/11/20 2 4 98 - 107 [facility] Albumin SerPl BCG-mCnc 2.9 g/dL Below low normal 4 3.6 - 5.1 [facility] GFR/BSA.pred SerPlBld AGC-APF-UhBRiy >60.0 mL/min/1.73m2 Normal 4 - [facility] ALT SerPl w/o P-5'-P-cCnc 16.0 U/L Normal 4 9 - 59 [facility] BUN SerPl-mCnc 12.0 mg/dL Normal 4 6 - 20 [facility] Sodium SerPl-sCnc 140.0 mmol/L Normal 4 136 - 144 [facility] ALP SerPl-cCnc 80.0 U/L Normal 4 9 - 122 [facility] AST SerPl w P-5'-P-cCnc 15.0 U/L Normal 4 10 - 35 [facility] Bilirub SerPl-mCnc <0.2 mg/dL Normal 4 - [facility] Glucose SerPl-mCnc 110.0 mg/dL Above high normal 01/26 4 70 - 100 [facility] Calcium SerPl-mCnc 9.3 mg/dL Normal 4 8.8 - 10.2 [facility] Anion Gap3 SerPl-sCnc 7.0 Normal 4 7 - 17 [facility] Imm Granulocytes # Bld Auto 0.02 x 1000/uL Normal 4 0 - 0.3 [facility] Basophils/leuk NFr Bld Auto 0.7 % Normal 4 0 - 1.4 [facility] Imm Granulocytes/leuk NFr Bld Auto 0.4 % Normal 4 0 - 1 [facility] MCV RBC Auto 85.9 fL Normal 4 80 - 100 [facility] nRBC/100 WBC Bld Auto-Rto 0.0 % Normal 4 0 - 1 [facility] Monocytes # Bld Auto 0.66 x 1000/uL Normal 02/10 4 0 - 1 [facility] Hct VFr Bld Auto 31.8 % Below low normal 02 4 38.5 - 50 [facility] MCHC RBC Auto-mCnc 32.1 g/dL Normal 4 31 - 36 [facility] Hgb Bld-mCnc 10.2 g/dL Below low normal 4 13.2 - 17.1 [facility] PMV Bld Auto 10.8 fL Normal 4 8 - 12 [facility] Platelet # Bld Auto 417.0 x1000/uL Normal 4 150 - 420 [facility] RBC Qn Auto 27.6 pg Normal 4 27 - 33 [facility] RBC # Bld Auto 3.7 M/uL Below low normal 4 4 - 6 [facility] Lymphocytes # Bld Auto 1.55 x 1000/uL Normal 4 0.6 - 3.7 [facility] Eosinophil # Bld Auto 0.08 x 1000/uL Normal 01/26 4 0 - 1 [facility] Neutrophils # Bld Auto 2.22 x 1000/uL Normal 4 2 - 7.6 [facility] WBC # Bld Auto 4.6 x1000/uL Normal 4 4 - 11 [facility] Basophils # Bld Auto 0.03 x 1000/uL Normal 02/10 4 0 - 1 [facility] Lymphocytes/leuk NFr Bld Auto 34.0 % Normal 4 17 - 50 [facility] nRBC # Bld Auto 0.0 x 1000/uL Normal 4 0 - 1 [facility] Eosinophil/leuk NFr Bld Auto 1.8 % Normal 4 0 - 5 [facility] Monocytes/leuk NFr Bld Auto 14.5 % Above high normal 4 4 - 12 [facility] Neutrophils/leuk NFr Bld Auto 48.6 % Normal 4 39 - 72 [facility] RDW RBC Auto-Rto 15.8 % Above high normal 4 11 - 15 [facility] Magnesium SerPl-mCnc 1.9 mg/dL Normal 02 4 1.7 - 2.4 [facility] Albumin/Glob SerPl 0.9 Below low normal 02/09 4 1 - 2.2 [facility] Bilirub SerPl-mCnc <0.2 mg/dL Normal 4 - [facility] ALP SerPl-cCnc 81.0 U/L Normal 4 9 - 122 [facility] Prot SerPl-mCnc 6.3 g/dL Normal 4 5.9 - 8.3 [facility] Potassium SerPl-sCnc 3.6 mmol/L Normal 02 4 3.3 - 5.3 [facility] BUN SerPl-mCnc 13.0 mg/dL Normal 4 6 - 20 [facility] BUN/Creat SerPl 25.5 Above high normal 02 4 8 - 23 [facility] GFR/BSA.pred SerPlBld QLH-GQO-XmVKhr >60.0 mL/min/1.73m2 Normal 4 - [facility] Creat SerPl-mCnc 0.51 mg/dL Normal 4 0.4 - 1.3 [facility] Calcium SerPl-mCnc 9.5 mg/dL Normal 4 8.8 - 10.2 [facility] ALT SerPl w/o P-5'-P-cCnc 11.0 U/L Normal 4 9 - 59 [facility] Anion Gap3 SerPl-sCnc 12.0 Normal 4 7 - 17 [facility] Albumin SerPl BCG-mCnc 2.9 g/dL Below low normal 4 3.6 - 5.1 [facility] AST SerPl w P-5'-P-cCnc 17.0 U/L Normal 4 10 - 35 [facility] Glucose SerPl-mCnc 100.0 mg/dL Normal 4 70 - 100 [facility] Sodium SerPl-sCnc 142.0 mmol/L Normal 4 136 - 144 [facility] Chloride SerPl-sCnc 100.0 mmol/L Normal 02/10/20 2 4 98 - 107 [facility] AST/ALT SerPl-cRto 1.5 Normal 4 - [facility] Globulin Plas-mCnc 3.4 g/dL Normal 4 2 - 3.9 [facility] HCO3 SerPl-sCnc 30.0 mmol/L Normal 4 20 - 30 [facility] Lymphocytes/leuk NFr Bld Auto 32.8 % Normal 4 17 - 50 [facility] MCV RBC Auto 86.1 fL Normal 4 80 - 100 [facility] Monocytes/leuk NFr Bld Auto 15.3 % Above high normal 4 4 - 12 [facility] Imm Granulocytes # Bld Auto 0.02 x 1000/uL Normal 4 0 - 0.3 [facility] RDW RBC Auto-Rto 15.7 % Above high normal 4 11 - 15 [facility] Basophils # Bld Auto 0.03 x 1000/uL Normal 02/09 4 0 - 1 [facility] PMV Bld Auto 10.8 fL Normal 4 8 - 12 [facility] RBC Qn Auto 27.3 pg Normal 4 27 - 33 [facility] WBC # Bld Auto 3.9 x1000/uL Below low normal 4 4 - 11 [facility] Neutrophils/leuk NFr Bld Auto 48.1 % Normal 4 39 - 72 [facility] MCHC RBC Auto-mCnc 31.7 g/dL Normal 4 31 - 36 [facility] Eosinophil # Bld Auto 0.1 x 1000/uL Normal 02/09 4 0 - 1 [facility] Eosinophil/leuk NFr Bld Auto 2.5 % Normal 4 0 - 5 [facility] Monocytes # Bld Auto 0.6 x 1000/uL Normal 4 0 - 1 [facility] Imm Granulocytes/leuk NFr Bld Auto 0.5 % Normal 4 0 - 1 [facility] Hgb Bld-mCnc 10.6 g/dL Below low normal 4 13.2 - 17.1 [facility] nRBC # Bld Auto 0.0 x 1000/uL Normal 4 0 - 1 [facility] Basophils/leuk NFr Bld Auto 0.8 % Normal 4 0 - 1.4 [facility] Hct VFr Bld Auto 33.4 % Below low normal 02 4 38.5 - 50 [facility] Lymphocytes # Bld Auto 1.29 x 1000/uL Normal 4 0.6 - 3.7 [facility] RBC # Bld Auto 3.88 M/uL Below low normal 4 4 - 6 [facility] nRBC/100 WBC Bld Auto-Rto 0.0 % Normal 4 0 - 1 [facility] Neutrophils # Bld Auto 1.89 x 1000/uL Below low normal 4 2 - 7.6 [facility] Platelet # Bld Auto 378.0 x1000/uL Normal 4 150 - 420 [facility] Magnesium SerPl-mCnc 2.1 mg/dL Normal 02 4 1.7 - 2.4 [facility] Sodium SerPl-sCnc 143.0 mmol/L Normal 4 136 - 144 [facility] Creat SerPl-mCnc 0.47 mg/dL Normal 4 0.4 - 1.3 [facility] HCO3 SerPl-sCnc 32.0 mmol/L Above high normal 02 4 20 - 30 [facility] Glucose SerPl-mCnc 108.0 mg/dL Above high normal 01/26 4 70 - 100 [facility] BUN SerPl-mCnc 12.0 mg/dL Normal 4 6 - 20 [facility] Potassium SerPl-sCnc 3.0 mmol/L Below low normal 4 3.3 - 5.3 [facility] GFR/BSA.pred SerPlBld SJG-GZU-QjDIjd >60.0 mL/min/1.73m2 Normal 4 - [facility] Calcium SerPl-mCnc 9.2 mg/dL Normal 4 8.8 - 10.2 [facility] Anion Gap3 SerPl-sCnc 10.0 Normal 4 7 - 17 [facility] BUN/Creat SerPl 25.5 Above high normal 02 4 8 - 23 [facility] Chloride SerPl-sCnc 101.0 mmol/L Normal 02/09/20 2 4 98 - 107 [facility] Glucose SerPl-mCnc 112.0 mg/dL Above high normal 01/26 4 70 - 100 [facility] Prot SerPl-mCnc 6.7 g/dL Normal 4 5.9 - 8.3 [facility] Potassium SerPl-sCnc 3.4 mmol/L Normal 02 4 3.3 - 5.3 [facility] Bilirub SerPl-mCnc <0.2 mg/dL Normal 4 - [facility] HCO3 SerPl-sCnc 31.0 mmol/L Above high normal 02 4 20 - 30 [facility] ALP SerPl-cCnc 88.0 U/L Normal 4 9 - 122 [facility] Albumin SerPl BCG-mCnc 3.0 g/dL Below low normal 4 3.6 - 5.1 [facility] BUN SerPl-mCnc 13.0 mg/dL Normal 4 6 - 20 [facility] ALT SerPl w/o P-5'-P-cCnc 13.0 U/L Normal 4 9 - 59 [facility] Calcium SerPl-mCnc 9.6 mg/dL Normal 4 8.8 - 10.2 [facility] AST/ALT SerPl-cRto 1.5 Normal 4 - [facility] Globulin Plas-mCnc 3.7 g/dL Normal 4 2 - 3.9 [facility] GFR/BSA.pred SerPlBld MEK-FLO-TlKVal >60.0 mL/min/1.73m2 Normal 4 - [facility] Albumin/Glob SerPl 0.8 Below low normal 02/07 4 1 - 2.2 [facility] Chloride SerPl-sCnc 100.0 mmol/L Normal 02/08/20 2 4 98 - 107 [facility] AST SerPl w P-5'-P-cCnc 19.0 U/L Normal 4 10 - 35 [facility] Sodium SerPl-sCnc 144.0 mmol/L Normal 4 136 - 144 [facility] BUN/Creat SerPl 27.7 Above high normal 02 4 8 - 23 [facility] Creat SerPl-mCnc 0.47 mg/dL Normal 4 0.4 - 1.3 [facility] Anion Gap3 SerPl-sCnc 13.0 Normal 4 7 - 17 [facility] Monocytes/leuk NFr Bld Auto 13.5 % Above high normal 4 4 - 12 [facility] Basophils/leuk NFr Bld Auto 0.4 % Normal 4 0 - 1.4 [facility] Basophils # Bld Auto 0.02 x 1000/uL Normal 02/07 4 0 - 1 [facility] Eosinophil # Bld Auto 0.15 x 1000/uL Normal 01/26 4 0 - 1 [facility] RDW RBC Auto-Rto 15.9 % Above high normal 4 11 - 15 [facility] Platelet # Bld Auto 335.0 x1000/uL Normal 4 150 - 420 [facility] MCHC RBC Auto-mCnc 31.7 g/dL Normal 4 31 - 36 [facility] Imm Granulocytes # Bld Auto 0.02 x 1000/uL Normal 4 0 - 0.3 [facility] Hct VFr Bld Auto 33.1 % Below low normal 02 4 38.5 - 50 [facility] WBC # Bld Auto 4.7 x1000/uL Normal 4 4 - 11 [facility] Eosinophil/leuk NFr Bld Auto 3.2 % Normal 4 0 - 5 [facility] RBC Qn Auto 27.2 pg Normal 4 27 - 33 [facility] Granulocytes/leuk NFr Bld Auto 0.4 % Normal 4 0 - 1 [facility] Lymphocytes/leuk NFr Bld Auto 34.0 % Normal 4 17 - 50 [facility] Neutrophils # Bld Auto 2.29 x 1000/uL Normal 4 2 - 7.6 [facility] RBC # Bld Auto 3.86 M/uL Below low normal 4 4 - 6 [facility] Neutrophils/leuk NFr Bld Auto 48.5 % Normal 4 39 - 72 [facility] Hgb Bld-mCnc 10.5 g/dL Below low normal 4 13.2 - 17.1 [facility] Lymphocytes # Bld Auto 1.61 x 1000/uL Normal 4 0.6 - 3.7 [facility] MCV RBC Auto 85.8 fL Normal 4 80 - 100 [facility] PMV Bld Auto 11.5 fL Normal 4 8 - 12 [facility] nRBC # Bld Auto 0.0 x 1000/uL Normal 4 0 - 1 [facility] nRBC/100 WBC Bld Auto-Rto 0.0 % Normal 4 0 - 1 [facility] Monocytes # Bld Auto 0.64 x 1000/uL Normal 02/07 4 0 - 1 [facility] Calcium SerPl-mCnc 9.4 mg/dL Normal 4 8.8 - 10.2 [facility] Anion Gap3 SerPl-sCnc 6.0 Below low normal 4 7 - 17 [facility] Creat SerPl-mCnc 0.54 mg/dL Normal 4 0.4 - 1.3 [facility] ALP SerPl-cCnc 80.0 U/L Normal 4 9 - 122 [facility] BUN SerPl-mCnc 13.0 mg/dL Normal 4 6 - 20 [facility] AST SerPl w P-5'-P-cCnc 17.0 U/L Normal 4 10 - 35 [facility] Glucose SerPl-mCnc 110.0 mg/dL Above high normal 01/26 4 70 - 100 [facility] Chloride SerPl-sCnc 103.0 mmol/L Normal 02/07/20 2 4 98 - 107 [facility] Albumin SerPl BCG-mCnc 2.8 g/dL Below low normal 4 3.6 - 5.1 [facility] AST/ALT SerPl-cRto Normal 4 [facility] Potassium SerPl-sCnc 3.4 mmol/L Normal 02 4 3.3 - 5.3 [facility] Albumin/Glob SerPl 0.8 Below low normal 02/06 4 1 - 2.2 [facility] GFR/BSA.pred SerPlBld QBA-RIP-UrXDtd >60.0 mL/min/1.73m2 Normal 4 - [facility] Globulin Plas-mCnc 3.4 g/dL Normal 4 2 - 3.9 [facility] HCO3 SerPl-sCnc 34.0 mmol/L Above high normal 02 4 20 - 30 [facility] Sodium SerPl-sCnc 143.0 mmol/L Normal 4 136 - 144 [facility] ALT SerPl w/o P-5'-P-cCnc <5.0 U/L Below low normal 4 9 - 59 [facility] Bilirub SerPl-mCnc 0.2 mg/dL Normal 4 - [facility] Prot SerPl-mCnc 6.2 g/dL Normal 4 5.9 - 8.3 [facility] BUN/Creat SerPl 24.1 Above high normal 02 4 8 - 23 [facility] Imm Granulocytes # Bld Auto 0.02 x 1000/uL Normal 4 0 - 0.3 [facility] Neutrophils/leuk NFr Bld Auto 58.5 % Normal 4 39 - 72 [facility] Basophils # Bld Auto 0.01 x 1000/uL Normal 02/06 4 0 - 1 [facility] Lymphocytes/leuk NFr Bld Auto 22.8 % Normal 4 17 - 50 [facility] Imm Granulocytes/leuk NFr Bld Auto 0.4 % Normal 4 0 - 1 [facility] RDW RBC Auto-Rto 15.5 % Above high normal 4 11 - 15 [facility] M[facility] RBC Qn Auto 27.2 pg Normal 4 27 - 33 [facility] nRBC/100 WBC Bld Auto-Rto 0.0 % Normal 4 0 - 1 [facility] Lymphocytes # Bld Auto 1.23 x 1000/uL Normal 4 0.6 - 3.7 [facility] Eosinophil/leuk NFr Bld Auto 2.0 % Normal 4 0 - 5 [facility] RBC # Bld Auto 3.53 M/uL Below low normal 4 4 - 6 [facility] Platelet # Bld Auto 297.0 x1000/uL Normal 4 150 - 420 [facility] nRBC # Bld Auto 0.0 x 1000/uL Normal 4 0 - 1 [facility] Hct VFr Bld Auto 30.3 % Below low normal 02 4 38.5 - 50 [facility] Neutrophils # Bld Auto 3.16 x 1000/uL Normal 4 2 - 7.6 [facility] PMV Bld Auto 11.3 fL Normal 4 8 - 12 [facility] WBC # Bld Auto 5.4 x1000/uL Normal 4 4 - 11 [facility] MCV RBC Auto 85.8 fL Normal 4 80 - 100 [facility] MCHC RBC Auto-mCnc 31.7 g/dL Normal 4 31 - 36 [facility] Basophils/leuk NFr Bld Auto 0.2 % Normal 4 0 - 1.4 [facility] Monocytes # Bld Auto 0.87 x 1000/uL Normal 02/06 4 0 - 1 [facility] Monocytes/leuk NFr Bld Auto 16.1 % Above high normal 4 4 - 12 [facility] Hgb Bld-mCnc 9.6 g/dL Below low normal 4 13.2 - 17.1 [facility] Eosinophil # Bld Auto 0.11 x 1000/uL Normal 01/26 4 0 - 1 [facility] Magnesium SerPl-mCnc 2.1 mg/dL Normal 02 4 1.7 - 2.4 [facility] Creat SerPl-mCnc 0.51 mg/dL Normal 4 0.4 - 1.3 [facility] Potassium SerPl-sCnc 3.5 mmol/L Normal 02 4 3.3 - 5.3 [facility] HCO3 SerPl-sCnc 31.0 mmol/L Above high normal 02 4 20 - 30 [facility] Glucose SerPl-mCnc 99.0 mg/dL Normal 4 70 - 100 [facility] GFR/BSA.pred SerPlBld PXV-RBL-JuGEbp >60.0 mL/min/1.73m2 Normal 4 - [facility] Calcium SerPl-mCnc 9.5 mg/dL Normal 4 8.8 - 10.2 [facility] BUN/Creat SerPl 29.4 Above high normal 02 4 8 - 23 [facility] Chloride SerPl-sCnc 100.0 mmol/L Normal 02/06/20 2 4 98 - 107 [facility] Sodium SerPl-sCnc 140.0 mmol/L Normal 4 136 - 144 [facility] BUN SerPl-mCnc 15.0 mg/dL Normal 4 6 - 20 [facility] Anion Gap3 SerPl-sCnc 9.0 Normal 4 7 - 17 [facility] WBC # Bld Auto 5.7 x1000/uL Normal 4 4 - 11 [facility] PMV Bld Auto 11.4 fL Normal 4 8 - 12 [facility] RBC # Bld Auto 3.73 M/uL Below low normal 4 4 - 6 [facility] Basophils # Bld Auto 0.02 x 1000/uL Normal 02/05 4 0 - 1 [facility] Hgb Bld-mCnc 9.7 g/dL Below low normal 4 13.2 - 17.1 [facility] Hct VFr Bld Auto 31.9 % Below low normal 02 4 38.5 - 50 [facility] M[facility] RBC Qn Auto 26.0 pg Below low normal 09/11/20 2 4 27 - 33 [facility] Neutrophils/leuk NFr Bld Auto 54.2 % Normal 4 39 - 72 [facility] Lymphocytes/leuk NFr Bld Auto 25.1 % Normal 4 17 - 50 [facility] Monocytes/leuk NFr Bld Auto 18.3 % Above high normal 4 4 - 12 [facility] nRBC/100 WBC Bld Auto-Rto 0.0 % Normal 4 0 - 1 [facility] Imm Granulocytes/leuk NFr Bld Auto 0.4 % Normal 4 0 - 1 [facility] nRBC # Bld Auto 0.0 x 1000/uL Normal 4 0 - 1 [facility] Platelet # Bld Auto 260.0 x1000/uL Normal 4 150 - 420 [facility] RDW RBC Auto-Rto 15.8 % Above high normal 4 11 - 15 [facility] Eosinophil # Bld Auto 0.09 x 1000/uL Normal 01/26 4 0 - 1 [facility] Basophils/leuk NFr Bld Auto 0.4 % Normal 4 0 - 1.4 [facility] Eosinophil/leuk NFr Bld Auto 1.6 % Normal 4 0 - 5 [facility] MCV RBC Auto 85.5 fL Normal 4 80 - 100 [facility] Lymphocytes # Bld Auto 1.43 x 1000/uL Normal 4 0.6 - 3.7 [facility] Monocytes # Bld Auto 1.04 x 1000/uL Above high normal 4 0 - 1 [facility] Imm Granulocytes # Bld Auto 0.02 x 1000/uL Normal 4 0 - 0.3 [facility] MCHC RBC Auto-mCnc 30.4 g/dL Below low normal 02/05 4 31 - 36 [facility] Neutrophils # Bld Auto 3.09 x 1000/uL Normal 4 2 - 7.6 [facility] Magnesium SerPl-mCnc 1.8 mg/dL Normal 02 4 1.7 - 2.4 [facility] Neutrophils/leuk NFr Bld Auto 73.8 % Above high normal 4 39 - 72 [facility] MCH RBC Qn Auto 27.0 pg Normal 4 27 - 33 [facility] Lymphocytes/leuk NFr Bld Auto 12.6 % Below low normal 4 17 - 50 [facility] Basophils # Bld Auto 0.01 x 1000/uL Normal 02/04 4 0 - 1 [facility] Lymphocytes # Bld Auto 1.02 x 1000/uL Normal 4 0.6 - 3.7 [facility] Monocytes # Bld Auto 1.02 x 1000/uL Above high normal 4 0 - 1 [facility] Neutrophils # Bld Auto 5.96 x 1000/uL Normal 4 2 - 7.6 [facility] Basophils/leuk NFr Bld Auto 0.1 % Normal 4 0 - 1.4 [facility] MCV RBC Auto 84.0 fL Normal 4 80 - 100 [facility] RDW RBC Auto-Rto 15.6 % Above high normal 4 11 - 15 [facility] Platelet # Bld Auto 267.0 x1000/uL Normal 4 150 - 420 [facility] MCHC RBC Auto-mCnc 32.2 g/dL Normal 4 31 - 36 [facility] PMV Bld Auto 11.8 fL Normal 4 8 - 12 [facility] nRBC/100 WBC Bld Auto-Rto 0.0 % Normal 4 0 - 1 [facility] WBC # Bld Auto 8.1 x1000/uL Normal 4 4 - 11 [facility] Hct VFr Bld Auto 28.3 % Below low normal 02 4 38.5 - 50 [facility] Eosinophil # Bld Auto 0.04 x 1000/uL Normal 01/26 4 0 - 1 [facility] RBC # Bld Auto 3.37 M/uL Below low normal 4 4 - 6 [facility] Eosinophil/leuk NFr Bld Auto 0.5 % Normal 4 0 - 5 [facility] Hgb Bld-mCnc 9.1 g/dL Below low normal 4 13.2 - 17.1 [facility] Imm Granulocytes/leuk NFr Bld Auto 0.4 % Normal 4 0 - 1 [facility] nRBC # Bld Auto 0.0 x 1000/uL Normal 4 0 - 1 [facility] Monocytes/leuk NFr Bld Auto 12.6 % Above high normal 4 4 - 12 [facility] Imm Granulocytes # Bld Auto 0.03 x 1000/uL Normal 4 0 - 0.3 [facility] Glucose SerPl-mCnc 101.0 mg/dL Above high normal 01/26 4 70 - 100 [facility] Potassium SerPl-sCnc 3.3 mmol/L Normal 02 4 3.3 - 5.3 [facility] HCO3 SerPl-sCnc 25.0 mmol/L Normal 4 20 - 30 [facility] Anion Gap3 SerPl-sCnc 13.0 Normal 4 7 - 17 [facility] BUN/Creat SerPl 20.8 Normal 4 8 - 23 [facility] Sodium SerPl-sCnc 138.0 mmol/L Normal 4 136 - 144 [facility] Creat SerPl-mCnc 0.53 mg/dL Normal 4 0.4 - 1.3 [facility] Chloride SerPl-sCnc 100.0 mmol/L Normal 02/05/20 2 4 98 - 107 [facility] Calcium SerPl-mCnc 9.5 mg/dL Normal 4 8.8 - 10.2 [facility] GFR/BSA.pred SerPlBld ZRG-NYE-AaUSqz >60.0 mL/min/1.73m2 Normal 4 - [facility] BUN SerPl-mCnc 11.0 mg/dL Normal 4 6 - 20 [facility] BKR REFLEX URINE CULTURE See Comment Normal 4 [facility] WBC #/area UrnS Auto 3.0 /HPF Normal 02 4 0 - 5 [facility] RBC #/area UrnS Auto 2.0 /HPF Normal 02 4 0 - 2 [facility] Urobilinogen Ur Strip-mCnc 4.0 mg/dL Above high normal 4 - [facility] pH Ur Strip.auto 6.5 Normal 4 5.5 - 7.5 [facility] Clarity Ur Refract.auto Cloudy Abnormal 4 - [facility] Glucose Ur Strip.auto-mCnc Negative Normal 4 - [facility] Nitrite Ur Ql Strip.auto Negative Normal 4 - [facility] Sp Gr Ur Refract.auto 1.016 Normal 4 1.005 - 1.03 [facility] Bilirub Ur Ql Strip.auto Negative Normal 4 - [facility] Color Ur Auto Yellow Normal 4 - [facility] WBC # Ur Strip Negative Normal 4 - [facility] Hgb Ur Ql Strip.auto Negative Normal 02 4 - [facility] Prot Ur Strip.auto-mCnc Negative Normal 4 - [facility] Ketones Ur Strip.auto-mCnc 1+ Abnormal 4 - [facility] Magnesium SerPl-mCnc 1.8 mg/dL Normal 02 4 1.7 - 2.4 [facility] Potassium SerPl-sCnc 3.4 mmol/L Normal 02 4 3.3 - 5.3 [facility] Bilirub SerPl-mCnc 0.2 mg/dL Normal 4 - [facility] ALP SerPl-cCnc 82.0 U/L Normal 4 9 - 122 [facility] Chloride SerPl-sCnc 101.0 mmol/L Normal 02/04/20 2 4 98 - 107 [facility] Calcium SerPl-mCnc 9.2 mg/dL Normal 4 8.8 - 10.2 [facility] Globulin Plas-mCnc 3.5 g/dL Normal 4 2 - 3.9 [facility] Prot SerPl-mCnc 6.3 g/dL Normal 4 5.9 - 8.3 [facility] Anion Gap3 SerPl-sCnc 12.0 Normal 4 7 - 17 [facility] Creat SerPl-mCnc 0.47 mg/dL Normal 4 0.4 - 1.3 [facility] AST SerPl w P-5'-P-cCnc 9.0 U/L Below low normal 4 10 - 35 [facility] GFR/BSA.pred SerPlBld QME-KXU-UpPPob >60.0 mL/min/1.73m2 Normal 4 - [facility] ALT SerPl w/o P-5'-P-cCnc 10.0 U/L Normal 4 9 - 59 [facility] AST/ALT SerPl-cRto 0.9 Normal 4 - [facility] BUN SerPl-mCnc 11.0 mg/dL Normal 4 6 - 20 [facility] HCO3 SerPl-sCnc 27.0 mmol/L Normal 4 20 - 30 [facility] Glucose SerPl-mCnc 127.0 mg/dL Above high normal 4 70 - 100 [facility] Albumin SerPl BCG-mCnc 2.8 g/dL Below low normal 4 3.6 - 5.1 [facility] Albumin/Glob SerPl 0.8 Below low normal 02/03 4 1 - 2.2 [facility] Sodium SerPl-sCnc 140.0 mmol/L Normal 4 136 - 144 [facility] BUN/Creat SerPl 23.4 Above high normal 02 4 8 - 23 [facility] PMV Bld Auto 11.9 fL Normal 4 8 - 12 [facility] Neutrophils # Bld Auto 4.66 x 1000/uL Normal 4 2 - 7.6 [facility] MCH RBC Qn Auto 26.9 pg Below low normal 02/04/20 2 4 27 - 33 [facility] MCHC RBC Auto-mCnc 31.6 g/dL Normal 4 31 - 36 [facility] Hct VFr Bld Auto 30.7 % Below low normal 02 4 38.5 - 50 [facility] RBC # Bld Auto 3.61 M/uL Below low normal 4 4 - 6 [facility] MCV RBC Auto 85.0 fL Normal 4 80 - 100 [facility] RDW RBC Auto-Rto 15.5 % Above high normal 4 11 - 15 [facility] WBC # Bld Auto 7.0 x1000/uL Normal 4 4 - 11 [facility] Platelet # Bld Auto 233.0 x1000/uL Normal 4 150 - 420 [facility] Hgb Bld-mCnc 9.7 g/dL Below low normal 4 13.2 - 17.1 [facility] Ferritin SerPl-mCnc 67.0 ng/mL Normal 02/03/20 2 4 30 - 400 [facility] Iron SerPl-mCnc 15.0 ug/dL Below low normal 02/03/20 2 4 59 - 158 [facility] Iron Satn MFr SerPl 5.0 % Below low normal 4 15 - 50 [facility] TIBC SerPl-mCnc 296.0 ug/dL Normal 4 250 - 450 [facility] Trigl SerPl-mCnc 90.0 mg/dL Normal 4 - [facility] Cholest/HDLc SerPl 3.4 Normal 4 0 - 5 [facility] Cholest SerPl-mCnc 123.0 mg/dL Normal 4 - [facility] HDLc SerPl-mCnc 36.0 mg/dL Below low normal 02/03/20 2 4 - [facility] LDLc SerPl Calc-mCnc 70.0 mg/dL Normal 02 4 - [facility] HbA1c MFr Bld 6.1 % Above high normal 4 4 - 5.6 [facility] BKR ESTIMATED AVERAGE GLUCOSE 128.0 mg/dL Normal 4 [facility] Anion Gap3 SerPl-sCnc 10.0 Normal 4 7 - 17 [facility] GFR/BSA.pred SerPlBld [id number] >60.0 mL/min/1.73m2 Normal 4 - [facility] Chloride SerPl-sCnc 106.0 mmol/L Normal 02/02/20 2 4 98 - 107 [facility] Sodium SerPl-sCnc 142.0 mmol/L Normal 4 136 - 144 [facility] HCO3 SerPl-sCnc 26.0 mmol/L Normal 4 20 - 30 [facility] Potassium SerPl-sCnc 3.5 mmol/L Normal 02 4 3.3 - 5.3 [facility] Calcium SerPl-mCnc 9.2 mg/dL Normal 4 8.8 - 10.2 [facility] BUN/Creat SerPl 9.1 Normal 4 8 - 23 [facility] Creat SerPl-mCnc 0.55 mg/dL Normal 4 0.4 - 1.3 [facility] Glucose SerPl-mCnc 110.0 mg/dL Above high normal 4 70 - 100 [facility] BUN SerPl-mCnc 5.0 mg/dL Below low normal 4 6 - 20 [facility] Imm Granulocytes/leuk NFr Bld Auto 0.4 % Normal 4 0 - 1 [facility] Monocytes # Bld Auto 0.7 x 1000/uL Normal 4 0 - 1 [facility] Hgb Bld-mCnc 9.9 g/dL Below low normal 4 13.2 - 17.1 [facility] Neutrophils/leuk NFr Bld Auto 58.3 % Normal 4 39 - 72 [facility] nRBC # Bld Auto 0.0 x 1000/uL Normal 4 0 - 1 [facility] Basophils # Bld Auto 0.02 x 1000/uL Normal 02/01 4 0 - 1 [facility] Basophils/leuk NFr Bld Auto 0.4 % Normal 4 0 - 1.4 [facility] Monocytes/leuk NFr Bld Auto 13.0 % Above high normal 4 4 - 12 [facility] MCV RBC Auto 85.7 fL Normal 4 80 - 100 [facility] Lymphocytes/leuk NFr Bld Auto 27.3 % Normal 4 17 - 50 [facility] Imm Granulocytes # Bld Auto 0.02 x 1000/uL Normal 4 0 - 0.3 [facility] PMV Bld Auto 10.9 fL Normal 4 8 - 12 [facility] Eosinophil/leuk NFr Bld Auto 0.6 % Normal 4 0 - 5 [facility] MCHC RBC Auto-mCnc 31.7 g/dL Normal 4 31 - 36 [facility] Lymphocytes # Bld Auto 1.47 x 1000/uL Normal 4 0.6 - 3.7 [facility] MCH RBC Qn Auto 27.2 pg Normal 4 27 - 33 [facility] RBC # Bld Auto 3.64 M/uL Below low normal 4 4 - 6 [facility] Eosinophil # Bld Auto 0.03 x 1000/uL Normal 09 4 0 - 1 [facility] Neutrophils # Bld Auto 3.15 x 1000/uL Normal 4 2 - 7.6 [facility] Platelet # Bld Auto 195.0 x1000/uL Normal 4 150 - 420 [facility] RDW RBC Auto-Rto 15.4 % Above high normal 4 11 - 15 [facility] Hct VFr Bld Auto 31.2 % Below low normal 02 4 38.5 - 50 [facility] nRBC/100 WBC Bld Auto-Rto 0.0 % Normal 4 0 - 1 [facility] WBC # Bld Auto 5.4 x1000/uL Normal 4 4 - 11 [facility] Glucose SerPl-mCnc 110.0 mg/dL Above high normal 4 70 - 100 [facility] Chloride SerPl-sCnc 105.0 mmol/L Normal 02/01/20 2 4 98 - 107 [facility] Calcium SerPl-mCnc 9.5 mg/dL Normal 4 8.8 - 10.2 [facility] HCO3 SerPl-sCnc 28.0 mmol/L Normal 4 20 - 30 [facility] GFR/BSA.pred SerPlBld [id number] >60.0 mL/min/1.73m2 Normal 4 - [facility] Sodium SerPl-sCnc 144.0 mmol/L Normal 4 136 - 144 [facility] Potassium SerPl-sCnc 3.1 mmol/L Below low normal 4 3.3 - 5.3 [facility] BUN/Creat SerPl 9.5 Normal 4 8 - 23 [facility] BUN SerPl-mCnc 6.0 mg/dL Normal 4 6 - 20 [facility] Anion Gap3 SerPl-sCnc 11.0 Normal 4 7 - 17 [facility] Creat SerPl-mCnc 0.63 mg/dL Normal 4 0.4 - 1.3 [facility] MCH RBC Qn Auto 27.3 pg Normal 4 27 - 33 [facility] Imm Granulocytes/leuk NFr Bld Auto 0.2 % Normal 4 0 - 1 [facility] Basophils # Bld Auto 0.02 x 1000/uL Normal 01/31 4 0 - 1 [facility] Monocytes/leuk NFr Bld Auto 14.9 % Above high normal 4 4 - 12 [facility] Neutrophils/leuk NFr Bld Auto 48.5 % Normal 4 39 - 72 [facility] Imm Granulocytes # Bld Auto 0.01 x 1000/uL Normal 4 0 - 0.3 [facility] Hgb Bld-mCnc 10.8 g/dL Below low normal 4 13.2 - 17.1 [facility] Hct VFr Bld Auto 33.7 % Below low normal 02 4 38.5 - 50 [facility] Lymphocytes # Bld Auto 1.56 x 1000/uL Normal 4 0.6 - 3.7 [facility] MCHC RBC Auto-mCnc 32.0 g/dL Normal 4 31 - 36 [facility] RBC # Bld Auto 3.96 M/uL Below low normal 4 4 - 6 [facility] Monocytes # Bld Auto 0.66 x 1000/uL Normal 01/31 4 0 - 1 [facility] Eosinophil # Bld Auto 0.03 x 1000/uL Normal 4 0 - 1 [facility] Platelet # Bld Auto 299.0 x1000/uL Normal 4 150 - 420 [facility] MCV RBC Auto 85.1 fL Normal 4 80 - 100 [facility] Basophils/leuk NFr Bld Auto 0.5 % Normal 4 0 - 1.4 [facility] Lymphocytes/leuk NFr Bld Auto 35.2 % Normal 4 17 - 50 [facility] nRBC # Bld Auto 0.0 x 1000/uL Normal 4 0 - 1 [facility] PMV Bld Auto 11.0 fL Normal 4 8 - 12 [facility] WBC # Bld Auto 4.4 x1000/uL Normal 4 4 - 11 [facility] nRBC/100 WBC Bld Auto-Rto 0.0 % Normal 4 0 - 1 [facility] RDW RBC Auto-Rto 15.2 % Above high normal 4 11 - 15 [facility] Neutrophils # Bld Auto 2.15 x 1000/uL Normal 4 2 - 7.6 [facility] Eosinophil/leuk NFr Bld Auto 0.7 % Normal 4 0 - 5 [facility] Creat SerPl-mCnc 0.55 mg/dL Normal 4 0.4 - 1.3 [facility] Potassium SerPl-sCnc 3.3 mmol/L Normal 02 4 3.3 - 5.3 [facility] Glucose SerPl-mCnc 107.0 mg/dL Above high normal 4 70 - 100 [facility] GFR/BSA.pred SerPlBld HFD-AGJ-WzFLsu >60.0 mL/min/1.73m2 Normal 4 - [facility] BUN/Creat SerPl 12.7 Normal 4 8 - 23 [facility] Calcium SerPl-mCnc 9.7 mg/dL Normal 4 8.8 - 10.2 [facility] BUN SerPl-mCnc 7.0 mg/dL Normal 4 6 - 20 [facility] Chloride SerPl-sCnc 103.0 mmol/L Normal 01/31/20 2 4 98 - 107 [facility] HCO3 SerPl-sCnc 30.0 mmol/L Normal 4 20 - 30 [facility] Anion Gap3 SerPl-sCnc 13.0 Normal 4 7 - 17 [facility] Sodium SerPl-sCnc 146.0 mmol/L Above high normal 01/30 4 136 - 144 [facility] Monocytes/leuk NFr Bld Auto 14.2 % Above high normal 4 4 - 12 [facility] Neutrophils # Bld Auto 2.24 x 1000/uL Normal 4 2 - 7.6 [facility] Platelet # Bld Auto 307.0 x1000/uL Normal 4 150 - 420 [facility] Lymphocytes/leuk NFr Bld Auto 37.4 % Normal 4 17 - 50 [facility] Hct VFr Bld Auto 35.1 % Below low normal 02 4 38.5 - 50 [facility] MCH RBC Qn Auto 26.4 pg Below low normal 01/31/20 2 4 27 - 33 [facility] PMV Bld Auto 11.5 fL Normal 4 8 - 12 [facility] MCHC RBC Auto-mCnc 30.5 g/dL Below low normal 01/30 4 31 - 36 [facility] Eosinophil/leuk NFr Bld Auto 0.8 % Normal 4 0 - 5 [facility] Lymphocytes # Bld Auto 1.79 x 1000/uL Normal 4 0.6 - 3.7 [facility] Neutrophils/leuk NFr Bld Auto 46.8 % Normal 4 39 - 72 [facility] Basophils/leuk NFr Bld Auto 0.6 % Normal 4 0 - 1.4 [facility] Monocytes # Bld Auto 0.68 x 1000/uL Normal 01/30 4 0 - 1 [facility] Basophils # Bld Auto 0.03 x 1000/uL Normal 01/30 4 0 - 1 [facility] Eosinophil # Bld Auto 0.04 x 1000/uL Normal 4 0 - 1 [facility] Imm Granulocytes # Bld Auto 0.01 x 1000/uL Normal 4 0 - 0.3 [facility] Hgb Bld-mCnc 10.7 g/dL Below low normal 4 13.2 - 17.1 [facility] RBC # Bld Auto 4.06 M/uL Normal 4 4 - 6 [facility] nRBC/100 WBC Bld Auto-Rto 0.0 % Normal 4 0 - 1 [facility] Imm Granulocytes/leuk NFr Bld Auto 0.2 % Normal 4 0 - 1 [facility] RDW RBC Auto-Rto 15.1 % Above high normal 4 11 - 15 [facility] MCV RBC Auto 86.5 fL Normal 4 80 - 100 [facility] WBC # Bld Auto 4.8 x1000/uL Normal 4 4 - 11 [facility] nRBC # Bld Auto 0.0 x 1000/uL Normal 4 0 - 1 [facility] GFR/BSA.pred SerPlBld TJO-KNK-BsKVfg >60.0 mL/min/1.73m2 Normal 4 - [facility] BUN SerPl-mCnc 9.0 mg/dL Normal 4 6 - 20 [facility] HCO3 SerPl-sCnc 29.0 mmol/L Normal 4 20 - 30 [facility] Creat SerPl-mCnc 0.64 mg/dL Normal 4 0.4 - 1.3 [facility] Glucose SerPl-mCnc 96.0 mg/dL Normal 4 70 - 100 [facility] Calcium SerPl-mCnc 9.8 mg/dL Normal 4 8.8 - 10.2 [facility] BUN/Creat SerPl 14.1 Normal 4 8 - 23 [facility] Potassium SerPl-sCnc 3.2 mmol/L Below low normal 4 3.3 - 5.3 [facility] Anion Gap3 SerPl-sCnc 13.0 Normal 4 7 - 17 [facility] Chloride SerPl-sCnc 102.0 mmol/L Normal 01/30/20 2 4 98 - 107 [facility] Sodium SerPl-sCnc 144.0 mmol/L Normal 4 136 - 144 [facility] Basophils/leuk NFr Bld Auto 0.7 % Normal 4 0 - 1.4 [facility] Basophils # Bld Auto 0.03 x 1000/uL Normal 01/29 4 0 - 1 [facility] Imm Granulocytes/leuk NFr Bld Auto 0.0 % Normal 4 0 - 1 [facility] MCHC RBC Auto-mCnc 31.1 g/dL Normal 4 31 - 36 [facility] Hct VFr Bld Auto 36.0 % Below low normal 02 4 38.5 - 50 [facility] Neutrophils/leuk NFr Bld Auto 34.9 % Below low normal 4 39 - 72 [facility] Lymphocytes # Bld Auto 2.16 x 1000/uL Normal 4 0.6 - 3.7 [facility] RDW RBC Auto-Rto 15.0 % Normal 4 11 - 15 [facility] Monocytes/leuk NFr Bld Auto 12.2 % Above high normal 4 4 - 12 [facility] MCH RBC Qn Auto 26.8 pg Below low normal 01/30/20 2 4 27 - 33 [facility] Monocytes # Bld Auto 0.52 x 1000/uL Normal 01/29 4 0 - 1 [facility] Neutrophils # Bld Auto 1.49 x 1000/uL Below low normal 4 2 - 7.6 [facility] nRBC # Bld Auto 0.0 x 1000/uL Normal 4 0 - 1 [facility] Lymphocytes/leuk NFr Bld Auto 50.6 % Above high normal 4 17 - 50 [facility] RBC # Bld Auto 4.18 M/uL Normal 4 4 - 6 [facility] Imm Granulocytes # Bld Auto 0.0 x 1000/uL Normal 4 0 - 0.3 [facility] PMV Bld Auto 11.5 fL Normal 4 8 - 12 [facility] Platelet # Bld Auto 304.0 x1000/uL Normal 4 150 - 420 [facility] WBC # Bld Auto 4.3 x1000/uL Normal 4 4 - 11 [facility] nRBC/100 WBC Bld Auto-Rto 0.0 % Normal 4 0 - 1 [facility] MCV RBC Auto 86.1 fL Normal 4 80 - 100 [facility] Eosinophil # Bld Auto 0.07 x 1000/uL Normal 4 4 0 - 1 [facility] Hgb Bld-mCnc 11.2 g/dL Below low normal 4 13.2 - 17.1 [facility] Eosinophil/leuk NFr Bld Auto 1.6 % Normal 4 0 - 5 [facility] Creat SerPl-mCnc 0.64 mg/dL Normal 4 0.4 - 1.3 [facility] Calcium SerPl-mCnc 9.3 mg/dL Normal 4 8.8 - 10.2 [facility] Glucose SerPl-mCnc 108.0 mg/dL Above high normal 4 70 - 100 [facility] HCO3 SerPl-sCnc 28.0 mmol/L Normal 4 20 - 30 [facility] Anion Gap3 SerPl-sCnc 12.0 Normal 4 7 - 17 [facility] BUN/Creat SerPl 17.2 Normal 4 8 - 23 [facility] BUN SerPl-mCnc 11.0 mg/dL Normal 4 6 - 20 [facility] Chloride SerPl-sCnc 102.0 mmol/L Normal 01/28/20 2 4 98 - 107 [facility] Potassium SerPl-sCnc 3.3 mmol/L Normal 02 4 3.3 - 5.3 [facility] GFR/BSA.pred SerPlBld FXS-BGB-SqKTwd >60.0 mL/min/1.73m2 Normal 4 - [facility] Sodium SerPl-sCnc 142.0 mmol/L Normal 4 136 - 144 [facility] Platelet # Bld Auto 352.0 x1000/uL Normal 4 150 - 420 [facility] Neutrophils # Bld Auto 1.8 x 1000/uL Below low normal 4 2 - 7.6 [facility] WBC # Bld Auto 4.3 x1000/uL Normal 4 4 - 11 [facility] MCV RBC Auto 85.5 fL Normal 4 80 - 100 [facility] RBC # Bld Auto 3.79 M/uL Below low normal 4 4 - 6 [facility] Hct VFr Bld Auto 32.4 % Below low normal 02 4 38.5 - 50 [facility] PMV Bld Auto 11.6 fL Normal 4 8 - 12 [facility] MCH RBC Qn Auto 26.6 pg Below low normal 01/28/20 2 4 27 - 33 [facility] RDW RBC Auto-Rto 14.9 % Normal 4 11 - 15 [facility] MCHC RBC Auto-mCnc 31.2 g/dL Normal 4 31 - 36 [facility] Hgb Bld-mCnc 10.1 g/dL Below low normal 4 13.2 - 17.1 [facility] Sodium SerPl-sCnc 142.0 mmol/L Normal 4 136 - 144 [facility] HCO3 SerPl-sCnc 29.0 mmol/L Normal 4 20 - 30 [facility] Glucose SerPl-mCnc 117.0 mg/dL Above high normal 4 70 - 100 [facility] Chloride SerPl-sCnc 104.0 mmol/L Normal 01/27/20 2 4 98 - 107 [facility] BUN/Creat SerPl 18.3 Normal 4 8 - 23 [facility] Creat SerPl-mCnc 0.6 mg/dL Normal 4 0.4 - 1.3 [facility] BUN SerPl-mCnc 11.0 mg/dL Normal 4 6 - 20 [facility] Calcium SerPl-mCnc 9.2 mg/dL Normal 4 8.8 - 10.2 [facility] GFR/BSA.pred SerPlBld GDP-QIX-EbKNvz >60.0 mL/min/1.73m2 Normal 4 - [facility] Potassium SerPl-sCnc 3.3 mmol/L Normal 09/01/2 02 4 3.3 - 5.3 [facility] Anion Gap3 SerPl-sCnc 9.0 Normal 4 7 - 17 [facility] Creat SerPl-mCnc 0.55 mg/dL Normal 4 0.4 - 1.3 [facility] Chloride SerPl-sCnc 105.0 mmol/L Normal 01/26/20 2 4 98 - 107 [facility] Anion Gap3 SerPl-sCnc 12.0 Normal 4 7 - 17 [facility] Sodium SerPl-sCnc 141.0 mmol/L Normal 4 136 - 144 [facility] BUN/Creat SerPl 20.0 Normal 4 8 - 23 [facility] Potassium SerPl-sCnc 3.0 mmol/L Below low normal 4 3.3 - 5.3 [facility] Calcium SerPl-mCnc 9.0 mg/dL Normal 4 8.8 - 10.2 [facility] BUN SerPl-mCnc 11.0 mg/dL Normal 4 6 - 20 [facility] Glucose SerPl-mCnc 112.0 mg/dL Above high normal 12/28 4 70 - 100 [facility] HCO3 SerPl-sCnc 24.0 mmol/L Normal 4 20 - 30 [facility] GFR/BSA.pred SerPlBld DHR-VGV-QhCGws >60.0 mL/min/1.73m2 Normal 4 - [facility] Basophils/leuk NFr Bld Auto 0.4 % Normal 4 0 - 1.4 [facility] Monocytes/leuk NFr Bld Auto 12.5 % Above high normal 4 4 - 12 [facility] WBC # Bld Auto 5.2 x1000/uL Normal 4 4 - 11 [facility] RBC # Bld Auto 3.56 M/uL Below low normal 4 4 - 6 [facility] MCHC RBC Auto-mCnc 31.3 g/dL Normal 4 31 - 36 [facility] Hgb Bld-mCnc 9.5 g/dL Below low normal 4 13.2 - 17.1 [facility] Lymphocytes # Bld Auto 1.63 x 1000/uL Normal 4 0.6 - 3.7 [facility] Basophils # Bld Auto 0.02 x 1000/uL Normal 01/25 4 0 - 1 [facility] Monocytes # Bld Auto 0.65 x 1000/uL Normal 01/25 4 0 - 1 [facility] Hct VFr Bld Auto 30.4 % Below low normal 02 4 38.5 - 50 [facility] Imm Granulocytes # Bld Auto 0.01 x 1000/uL Normal 4 0 - 0.3 [facility] Neutrophils/leuk NFr Bld Auto 54.8 % Normal 4 39 - 72 [facility] nRBC/100 WBC Bld Auto-Rto 0.0 % Normal 4 0 - 1 [facility] nRBC # Bld Auto 0.0 x 1000/uL Normal 4 0 - 1 [facility] MCH RBC Qn Auto 26.7 pg Below low normal 01/26/20 2 4 27 - 33 [facility] PMV Bld Auto 11.8 fL Normal 4 8 - 12 [facility] RDW RBC Auto-Rto 14.7 % Normal 4 11 - 15 [facility] Eosinophil/leuk NFr Bld Auto 0.6 % Normal 4 0 - 5 [facility] Neutrophils # Bld Auto 2.84 x 1000/uL Normal 4 2 - 7.6 [facility] Lymphocytes/leuk NFr Bld Auto 31.5 % Normal 4 17 - 50 [facility] Eosinophil # Bld Auto 0.03 x 1000/uL Normal 12/28 4 0 - 1 [facility] Imm Granulocytes/leuk NFr Bld Auto 0.2 % Normal 4 0 - 1 [facility] Platelet # Bld Auto 363.0 x1000/uL Normal 4 150 - 420 [facility] MCV RBC Auto 85.4 fL Normal 4 80 - 100 [facility] GFR/BSA.pred SerPlBld WOF-CRB-MvSLgr >60.0 mL/min/1.73m2 Normal 4 - [facility] BUN SerPl-mCnc 10.0 mg/dL Normal 4 6 - 20 [facility] Potassium SerPl-sCnc 3.3 mmol/L Normal 02 4 3.3 - 5.3 [facility] Sodium SerPl-sCnc 145.0 mmol/L Above high normal 01/24 4 136 - 144 [facility] Glucose SerPl-mCnc 99.0 mg/dL Normal 4 70 - 100 [facility] HCO3 SerPl-sCnc 27.0 mmol/L Normal 4 20 - 30 [facility] Creat SerPl-mCnc 0.57 mg/dL Normal 4 0.4 - 1.3 [facility] Anion Gap3 SerPl-sCnc 13.0 Normal 4 7 - 17 [facility] BUN/Creat SerPl 17.5 Normal 4 8 - 23 [facility] Chloride SerPl-sCnc 105.0 mmol/L Normal 01/25/20 2 4 98 - 107 [facility] Calcium SerPl-mCnc 9.7 mg/dL Normal 4 8.8 - 10.2 [facility] Lymphocytes/leuk NFr Bld Auto 36.9 % Normal 4 17 - 50 [facility] Eosinophil/leuk NFr Bld Auto 1.3 % Normal 4 0 - 5 [facility] RDW RBC Auto-Rto 15.1 % Above high normal 4 11 - 15 [facility] Platelet # Bld Auto 303.0 x1000/uL Normal 4 150 - 420 [facility] MCH RBC Qn Auto 26.4 pg Below low normal 01/25/20 2 4 27 - 33 [facility] Imm Granulocytes/leuk NFr Bld Auto 0.2 % Normal 4 0 - 1 [facility] RBC # Bld Auto 3.98 M/uL Below low normal 4 4 - 6 [facility] Basophils/leuk NFr Bld Auto 0.9 % Normal 4 0 - 1.4 [facility] nRBC/100 WBC Bld Auto-Rto 0.0 % Normal 4 0 - 1 [facility] Neutrophils # Bld Auto 2.25 x 1000/uL Normal 4 2 - 7.6 [facility] Eosinophil # Bld Auto 0.06 x 1000/uL Normal 12/28 4 0 - 1 [facility] MCHC RBC Auto-mCnc 30.2 g/dL Below low normal 01/24 4 31 - 36 [facility] Hct VFr Bld Auto 34.8 % Below low normal 02 4 38.5 - 50 [facility] Lymphocytes # Bld Auto 1.71 x 1000/uL Normal 4 0.6 - 3.7 [facility] Imm Granulocytes # Bld Auto 0.01 x 1000/uL Normal 4 0 - 0.3 [facility] Monocytes/leuk NFr Bld Auto 12.1 % Above high normal 4 4 - 12 [facility] Monocytes # Bld Auto 0.56 x 1000/uL Normal 01/24 4 0 - 1 [facility] WBC # Bld Auto 4.6 x1000/uL Normal 4 4 - 11 [facility] MCV RBC Auto 87.4 fL Normal 4 80 - 100 [facility] Hgb Bld-mCnc 10.5 g/dL Below low normal 4 13.2 - 17.1 [facility] PMV Bld Auto 12.3 fL Above high normal 4 8 - 12 [facility] nRBC # Bld Auto 0.0 x 1000/uL Normal 4 0 - 1 [facility] Basophils # Bld Auto 0.04 x 1000/uL Normal 01/24 4 0 - 1 [facility] Neutrophils/leuk NFr Bld Auto 48.6 % Normal 4 39 - 72 [facility] HCO3 SerPl-sCnc 30.0 mmol/L Normal 4 20 - 30 [facility] BUN SerPl-mCnc 13.0 mg/dL Normal 4 6 - 20 [facility] BUN/Creat SerPl 21.0 Normal 4 8 - 23 [facility] Potassium SerPl-sCnc 3.5 mmol/L Normal 02 4 3.3 - 5.3 [facility] Anion Gap3 SerPl-sCnc 12.0 Normal 4 7 - 17 [facility] Creat SerPl-mCnc 0.62 mg/dL Normal 4 0.4 - 1.3 [facility] Sodium SerPl-sCnc 146.0 mmol/L Above high normal 01/23 4 136 - 144 [facility] GFR/BSA.pred SerPlBld PWK-BCI-GwRPrl >60.0 mL/min/1.73m2 Normal 4 - [facility] Glucose SerPl-mCnc 138.0 mg/dL Above high normal 12/27 4 70 - 100 [facility] Chloride SerPl-sCnc 104.0 mmol/L Normal 01/24/20 2 4 98 - 107 [facility] Calcium SerPl-mCnc 10.0 mg/dL Normal 4 8.8 - 10.2 [facility] RDW RBC Auto-Rto 15.0 % Normal 4 11 - 15 [facility] Basophils/leuk NFr Bld Auto 0.3 % Normal 4 0 - 1.4 [facility] Lymphocytes # Bld Auto 1.8 x 1000/uL Normal 4 0.6 - 3.7 [facility] Eosinophil # Bld Auto 0.02 x 1000/uL Normal 12/27 4 0 - 1 [facility] MCHC RBC Auto-mCnc 31.3 g/dL Normal 4 31 - 36 [facility] Platelet # Bld Auto 437.0 x1000/uL Above high normal 0 4 150 - 420 [facility] Hgb Bld-mCnc 10.3 g/dL Below low normal 4 13.2 - 17.1 [facility] Imm Granulocytes/leuk NFr Bld Auto 0.1 % Normal 4 0 - 1 [facility] RBC # Bld Auto 3.79 M/uL Below low normal 4 4 - 6 [facility] Hct VFr Bld Auto 32.9 % Below low normal 02 4 38.5 - 50 [facility] MCV RBC Auto 86.8 fL Normal 4 80 - 100 [facility] MCH RBC Qn Auto 27.2 pg Normal 4 27 - 33 [facility] PMV Bld Auto 11.6 fL Normal 4 8 - 12 [facility] Neutrophils/leuk NFr Bld Auto 64.6 % Normal 4 39 - 72 [facility] Lymphocytes/leuk NFr Bld Auto 25.5 % Normal 4 17 - 50 [facility] Imm Granulocytes # Bld Auto 0.01 x 1000/uL Normal 4 0 - 0.3 [facility] nRBC # Bld Auto 0.0 x 1000/uL Normal 4 0 - 1 [facility] Neutrophils # Bld Auto 4.56 x 1000/uL Normal 4 2 - 7.6 [facility] WBC # Bld Auto 7.1 x1000/uL Normal 4 4 - 11 [facility] Basophils # Bld Auto 0.02 x 1000/uL Normal 01/23 4 0 - 1 [facility] Eosinophil/leuk NFr Bld Auto 0.3 % Normal 4 0 - 5 [facility] Monocytes # Bld Auto 0.65 x 1000/uL Normal 01/23 4 0 - 1 [facility] nRBC/100 WBC Bld Auto-Rto 0.0 % Normal 4 0 - 1 [facility] Monocytes/leuk NFr Bld Auto 9.2 % Normal 4 4 - 12 [facility] Prothrombin time 11.5 seconds Normal 4 9.6 - 12.3 [facility] INR PPP 1.04 Normal 4 0.86 - 1.12 [facility] Creat SerPl-mCnc 0.62 mg/dL Normal 4 0.4 - 1.3 [facility] GFR/BSA.pred SerPlBld GSU-RTO-RuKDxf >60.0 mL/min/1.73m2 Normal 4 - [facility] Anion Gap3 SerPl-sCnc 12.0 Normal 4 7 - 17 [facility] Calcium SerPl-mCnc 10.0 mg/dL Normal 4 8.8 - 10.2 [facility] Sodium SerPl-sCnc 147.0 mmol/L Above high normal 01/22 4 136 - 144 [facility] HCO3 SerPl-sCnc 28.0 mmol/L Normal 4 20 - 30 [facility] Chloride SerPl-sCnc 107.0 mmol/L Normal 01/23/20 2 4 98 - 107 [facility] Potassium SerPl-sCnc 3.6 mmol/L Normal 02 4 3.3 - 5.3 [facility] BUN SerPl-mCnc 13.0 mg/dL Normal 4 6 - 20 [facility] Glucose SerPl-mCnc 120.0 mg/dL Above high normal 12/27 4 70 - 100 [facility] BUN/Creat SerPl 21.0 Normal 4 8 - 23 [facility] Hgb Bld-mCnc 11.0 g/dL Below low normal 4 13.2 - 17.1 [facility] nRBC/100 WBC Bld Auto-Rto 0.0 % Normal 4 0 - 1 [facility] Platelet # Bld Auto 428.0 x1000/uL Above high normal 0 4 150 - 420 [facility] PMV Bld Auto 11.4 fL Normal 4 8 - 12 [facility] Monocytes/leuk NFr Bld Auto 9.5 % Normal 4 4 - 12 [facility] Basophils # Bld Auto 0.03 x 1000/uL Normal 01/22 4 0 - 1 [facility] Lymphocytes/leuk NFr Bld Auto 31.9 % Normal 4 17 - 50 [facility] Eosinophil # Bld Auto 0.08 x 1000/uL Normal 12/27 4 0 - 1 [facility] nRBC # Bld Auto 0.0 x 1000/uL Normal 4 0 - 1 [facility] Imm Granulocytes/leuk NFr Bld Auto 0.2 % Normal 4 0 - 1 [facility] MCHC RBC Auto-mCnc 31.3 g/dL Normal 4 31 - 36 [facility] Hct VFr Bld Auto 35.1 % Below low normal 02 4 38.5 - 50 [facility] MCV RBC Auto 86.7 fL Normal 4 80 - 100 [facility] RDW RBC Auto-Rto 14.6 % Normal 4 11 - 15 [facility] Neutrophils/leuk NFr Bld Auto 56.5 % Normal 4 39 - 72 [facility] WBC # Bld Auto 5.7 x1000/uL Normal 4 4 - 11 [facility] Monocytes # Bld Auto 0.54 x 1000/uL Normal 01/22 4 0 - 1 [facility] Eosinophil/leuk NFr Bld Auto 1.4 % Normal 4 0 - 5 [facility] Lymphocytes # Bld Auto 1.81 x 1000/uL Normal 4 0.6 - 3.7 [facility] Neutrophils # Bld Auto 3.21 x 1000/uL Normal 4 2 - 7.6 [facility] Imm Granulocytes # Bld Auto 0.01 x 1000/uL Normal 4 0 - 0.3 [facility] Basophils/leuk NFr Bld Auto 0.5 % Normal 08/28/202 4 0 - 1.4 [facility] MCH RBC Qn Auto 27.2 pg Normal 4 27 - 33 [facility] RBC # Bld Auto 4.05 M/uL Normal 4 4 - 6 [facility] BUN/Creat SerPl 29.3 Above high normal 02 4 8 - 23 [facility] HCO3 SerPl-sCnc 33.0 mmol/L Above high normal 02 4 20 - 30 [facility] Anion Gap3 SerPl-sCnc 10.0 Normal 4 7 - 17 [facility] Chloride SerPl-sCnc 103.0 mmol/L Normal 01/22/20 2 4 98 - 107 [facility] Calcium SerPl-mCnc 9.1 mg/dL Normal 4 8.8 - 10.2 [facility] Creat SerPl-mCnc 0.58 mg/dL Normal 4 0.4 - 1.3 [facility] Potassium SerPl-sCnc 3.6 mmol/L Normal 02 4 3.3 - 5.3 [facility] Sodium SerPl-sCnc 146.0 mmol/L Above high normal 01/21 4 136 - 144 [facility] BUN SerPl-mCnc 17.0 mg/dL Normal 4 6 - 20 [facility] Glucose SerPl-mCnc 114.0 mg/dL Above high normal 12/27 4 70 - 100 [facility] GFR/BSA.pred SerPlBld BVN-OJH-GnIJtz >60.0 mL/min/1.73m2 Normal 4 - [facility] Lymphocytes # Bld Auto 1.54 x 1000/uL Normal 4 0.6 - 3.7 [facility] Monocytes # Bld Auto 0.5 x 1000/uL Normal 4 0 - 1 [facility] Hgb Bld-mCnc 9.2 g/dL Below low normal 4 13.2 - 17.1 [facility] Hct VFr Bld Auto 29.1 % Below low normal 02 4 38.5 - 50 [facility] Imm Granulocytes/leuk NFr Bld Auto 0.2 % Normal 4 0 - 1 [facility] Monocytes/leuk NFr Bld Auto 11.4 % Normal 4 4 - 12 [facility] Neutrophils # Bld Auto 2.21 x 1000/uL Normal 4 2 - 7.6 [facility] nRBC/100 WBC Bld Auto-Rto 0.0 % Normal 4 0 - 1 [facility] RBC # Bld Auto 3.33 M/uL Below low normal 4 4 - 6 [facility] PMV Bld Auto 11.5 fL Normal 4 8 - 12 [facility] nRBC # Bld Auto 0.0 x 1000/uL Normal 4 0 - 1 [facility] MCH RBC Qn Auto 27.6 pg Normal 4 27 - 33 [facility] Eosinophil/leuk NFr Bld Auto 2.5 % Normal 4 0 - 5 [facility] Imm Granulocytes # Bld Auto 0.01 x 1000/uL Normal 4 0 - 0.3 [facility] Lymphocytes/leuk NFr Bld Auto 35.0 % Normal 4 17 - 50 [facility] MCV RBC Auto 87.4 fL Normal 4 80 - 100 [facility] Eosinophil # Bld Auto 0.11 x 1000/uL Normal 12/27 4 0 - 1 [facility] Neutrophils/leuk NFr Bld Auto 50.2 % Normal 4 39 - 72 [facility] Basophils # Bld Auto 0.03 x 1000/uL Normal 01/21 4 0 - 1 [facility] Platelet # Bld Auto 402.0 x1000/uL Normal 4 150 - 420 [facility] WBC # Bld Auto 4.4 x1000/uL Normal 4 4 - 11 [facility] MCHC RBC Auto-mCnc 31.6 g/dL Normal 4 31 - 36 [facility] Basophils/leuk NFr Bld Auto 0.7 % Normal 4 0 - 1.4 [facility] RDW RBC Auto-Rto 14.2 % Normal 4 11 - 15 [facility] BUN SerPl-mCnc 17.0 mg/dL Normal 4 6 - 20 [facility] BUN/Creat SerPl 27.4 Above high normal 02 4 8 - 23 [facility] Anion Gap3 SerPl-sCnc 12.0 Normal 4 7 - 17 [facility] GFR/BSA.pred SerPlBld WFF-QVH-HvYTco >60.0 mL/min/1.73m2 Normal 4 - [facility] Sodium SerPl-sCnc 143.0 mmol/L Normal 4 136 - 144 [facility] Glucose SerPl-mCnc 139.0 mg/dL Above high normal 12/27 4 70 - 100 [facility] HCO3 SerPl-sCnc 30.0 mmol/L Normal 4 20 - 30 [facility] Potassium SerPl-sCnc 3.3 mmol/L Normal 02 4 3.3 - 5.3 [facility] Chloride SerPl-sCnc 101.0 mmol/L Normal 01/21/20 2 4 98 - 107 [facility] Creat SerPl-mCnc 0.62 mg/dL Normal 4 0.4 - 1.3 [facility] Calcium SerPl-mCnc 9.7 mg/dL Normal 4 8.8 - 10.2 [facility] Calcium SerPl-mCnc 9.7 mg/dL Normal 4 8.8 - 10.2 [facility] Chloride SerPl-sCnc 102.0 mmol/L Normal 01/20/20 2 4 98 - 107 [facility] Glucose SerPl-mCnc 157.0 mg/dL Above high normal 12/27 4 70 - 100 [facility] Sodium SerPl-sCnc 145.0 mmol/L Above high normal 01/19 4 136 - 144 [facility] GFR/BSA.pred SerPlBld LNG-WIE-EkBVqa >60.0 mL/min/1.73m2 Normal 4 - [facility] HCO3 SerPl-sCnc 31.0 mmol/L Above high normal 02 4 20 - 30 [facility] BUN SerPl-mCnc 24.0 mg/dL Above high normal 01/20/20 2 4 6 - 20 [facility] Creat SerPl-mCnc 0.6 mg/dL Normal 4 0.4 - 1.3 [facility] Potassium SerPl-sCnc 3.6 mmol/L Normal 02 4 3.3 - 5.3 [facility] Anion Gap3 SerPl-sCnc 12.0 Normal 4 7 - 17 [facility] BUN/Creat SerPl 40.0 Above high normal 02 4 8 - 23 [facility] BUN SerPl-mCnc 22.0 mg/dL Above high normal 01/19/20 2 4 6 - 20 [facility] Glucose SerPl-mCnc 140.0 mg/dL Above high normal 12/27 4 70 - 100 [facility] HCO3 SerPl-sCnc 31.0 mmol/L Above high normal 02 4 20 - 30 [facility] GFR/BSA.pred SerPlBld KOY-QNH-KbKLqb >60.0 mL/min/1.73m2 Normal 4 - [facility] Chloride SerPl-sCnc 107.0 mmol/L Normal 01/19/20 2 4 98 - 107 [facility] BUN/Creat SerPl 34.4 Above high normal 02 4 8 - 23 [facility] Calcium SerPl-mCnc 9.7 mg/dL Normal 4 8.8 - 10.2 [facility] Sodium SerPl-sCnc 149.0 mmol/L Above high normal 01/18 4 136 - 144 [facility] Anion Gap3 SerPl-sCnc 11.0 Normal 4 7 - 17 [facility] Creat SerPl-mCnc 0.64 mg/dL Normal 4 0.4 - 1.3 [facility] Potassium SerPl-sCnc 3.4 mmol/L Normal 02 4 3.3 - 5.3 [facility] Basophils # Bld Auto 0.03 x 1000/uL Normal 01/18 4 0 - 1 [facility] Hct VFr Bld Auto 32.0 % Below low normal 02 4 38.5 - 50 [facility] Neutrophils # Bld Auto 2.76 x 1000/uL Normal 4 2 - 7.6 [facility] WBC # Bld Auto 5.2 x1000/uL Normal 4 4 - 11 [facility] RDW RBC Auto-Rto 15.0 % Normal 4 11 - 15 [facility] Monocytes # Bld Auto 0.58 x 1000/uL Normal 01/18 4 0 - 1 [facility] MCHC RBC Auto-mCnc 30.9 g/dL Below low normal 01/18 4 31 - 36 [facility] MCV RBC Auto 87.9 fL Normal 4 80 - 100 [facility] Imm Granulocytes # Bld Auto 0.02 x 1000/uL Normal 4 0 - 0.3 [facility] Eosinophil/leuk NFr Bld Auto 1.0 % Normal 4 0 - 5 [facility] MCH RBC Qn Auto 27.2 pg Normal 4 27 - 33 [facility] RBC # Bld Auto 3.64 M/uL Below low normal 4 4 - 6 [facility] Lymphocytes # Bld Auto 1.72 x 1000/uL Normal 4 0.6 - 3.7 [facility] Basophils/leuk NFr Bld Auto 0.6 % Normal 4 0 - 1.4 [facility] Imm Granulocytes/leuk NFr Bld Auto 0.4 % Normal 4 0 - 1 [facility] nRBC/100 WBC Bld Auto-Rto 0.0 % Normal 4 0 - 1 [facility] Platelet # Bld Auto 444.0 x1000/uL Above high normal 0 4 150 - 420 [facility] Neutrophils/leuk NFr Bld Auto 53.5 % Normal 4 39 - 72 [facility] Eosinophil # Bld Auto 0.05 x 1000/uL Normal 12/27 4 0 - 1 [facility] Monocytes/leuk NFr Bld Auto 11.2 % Normal 4 4 - 12 [facility] Hgb Bld-mCnc 9.9 g/dL Below low normal 4 13.2 - 17.1 [facility] nRBC # Bld Auto 0.0 x 1000/uL Normal 4 0 - 1 [facility] PMV Bld Auto 11.2 fL Normal 4 8 - 12 [facility] Lymphocytes/leuk NFr Bld Auto 33.3 % Normal 4 17 - 50 [facility] BUN SerPl-mCnc 25.0 mg/dL Above high normal 01/18/20 2 4 6 - 20 [facility] Calcium SerPl-mCnc 10.1 mg/dL Normal 4 8.8 - 10.2 [facility] Glucose SerPl-mCnc 133.0 mg/dL Above high normal 12/27 4 70 - 100 [facility] Potassium SerPl-sCnc 4.0 mmol/L Normal 02 4 3.3 - 5.3 [facility] Chloride SerPl-sCnc 105.0 mmol/L Normal 01/18/20 2 4 98 - 107 [facility] GFR/BSA.pred SerPlBld [id number] >60.0 mL/min/1.73m2 Normal 4 - [facility] BUN/Creat SerPl 39.1 Above high normal 02 4 8 - 23 [facility] HCO3 SerPl-sCnc 30.0 mmol/L Normal 4 20 - 30 [facility] Anion Gap3 SerPl-sCnc 11.0 Normal 4 7 - 17 [facility] Sodium SerPl-sCnc 146.0 mmol/L Above high normal 01/17 4 136 - 144 [facility] Creat SerPl-mCnc 0.64 mg/dL Normal 4 0.4 - 1.3 [facility] Lymphocytes # Bld Auto 2.01 x 1000/uL Normal 4 0.6 - 3.7 [facility] nRBC/100 WBC Bld Auto-Rto 0.0 % Normal 4 0 - 1 [facility] Hct VFr Bld Auto 34.0 % Below low normal 02 4 38.5 - 50 [facility] Monocytes/leuk NFr Bld Auto 12.6 % Above high normal 4 4 - 12 [facility] Basophils # Bld Auto 0.04 x 1000/uL Normal 01/17 4 0 - 1 [facility] MCV RBC Auto 89.7 fL Normal 4 80 - 100 [facility] PMV Bld Auto 11.0 fL Normal 4 8 - 12 [facility] Basophils/leuk NFr Bld Auto 0.6 % Normal 4 0 - 1.4 [facility] nRBC # Bld Auto 0.0 x 1000/uL Normal 4 0 - 1 [facility] Neutrophils # Bld Auto 3.76 x 1000/uL Normal 4 2 - 7.6 [facility] Hgb Bld-mCnc 10.8 g/dL Below low normal 4 13.2 - 17.1 [facility] Imm Granulocytes/leuk NFr Bld Auto 0.3 % Normal 4 0 - 1 [facility] RDW RBC Auto-Rto 15.0 % Normal 4 11 - 15 [facility] Imm Granulocytes # Bld Auto 0.02 x 1000/uL Normal 4 0 - 0.3 [facility] Monocytes # Bld Auto 0.85 x 1000/uL Normal 01/17 4 0 - 1 [facility] Neutrophils/leuk NFr Bld Auto 55.9 % Normal 4 39 - 72 [facility] RBC # Bld Auto 3.79 M/uL Below low normal 4 4 - 6 [facility] Lymphocytes/leuk NFr Bld Auto 29.9 % Normal 4 17 - 50 [facility] MCH RBC Qn Auto 28.5 pg Normal 4 27 - 33 [facility] Platelet # Bld Auto 508.0 x1000/uL Above high normal 0 4 150 - 420 [facility] Eosinophil # Bld Auto 0.05 x 1000/uL Normal 12/27 4 0 - 1 [facility] MCHC RBC Auto-mCnc 31.8 g/dL Normal 4 31 - 36 [facility] Eosinophil/leuk NFr Bld Auto 0.7 % Normal 4 0 - 5 [facility] WBC # Bld Auto 6.7 x1000/uL Normal 4 4 - 11 [facility] HCO3 SerPl-sCnc 30.0 mmol/L Normal 4 20 - 30 [facility] Potassium SerPl-sCnc 3.8 mmol/L Normal 02 4 3.3 - 5.3 [facility] Sodium SerPl-sCnc 146.0 mmol/L Above high normal 01/16 4 136 - 144 [facility] GFR/BSA.pred SerPlBld [id number] >60.0 mL/min/1.73m2 Normal 4 - [facility] Anion Gap3 SerPl-sCnc 10.0 Normal 4 7 - 17 [facility] BUN SerPl-mCnc 22.0 mg/dL Above high normal 01/17/20 2 4 6 - 20 [facility] BUN/Creat SerPl 34.4 Above high normal 02 4 8 - 23 [facility] Chloride SerPl-sCnc 106.0 mmol/L Normal 01/17/20 2 4 98 - 107 [facility] Calcium SerPl-mCnc 10.3 mg/dL Above high normal 12/27 4 8.8 - 10.2 [facility] Creat SerPl-mCnc 0.64 mg/dL Normal 4 0.4 - 1.3 [facility] Glucose SerPl-mCnc 140.0 mg/dL Above high normal 12/27 4 70 - 100 [facility] Monocytes # Bld Auto 0.79 x 1000/uL Normal 01/16 4 0 - 1 [facility] MCV RBC Auto 88.0 fL Normal 4 80 - 100 [facility] Neutrophils # Bld Auto 4.77 x 1000/uL Normal 4 2 - 7.6 [facility] Hct VFr Bld Auto 30.9 % Below low normal 02 4 38.5 - 50 [facility] Neutrophils/leuk NFr Bld Auto 62.4 % Normal 4 39 - 72 [facility] MCH RBC Qn Auto 27.4 pg Normal 4 27 - 33 [facility] Eosinophil # Bld Auto 0.15 x 1000/uL Normal 12/27 4 0 - 1 [facility] MCHC RBC Auto-mCnc 31.1 g/dL Normal 4 31 - 36 [facility] Imm Granulocytes/leuk NFr Bld Auto 0.3 % Normal 4 0 - 1 [facility] PMV Bld Auto 11.2 fL Normal 4 8 - 12 [facility] nRBC # Bld Auto 0.0 x 1000/uL Normal 4 0 - 1 [facility] WBC # Bld Auto 7.6 x1000/uL Normal 4 4 - 11 [facility] Imm Granulocytes # Bld Auto 0.02 x 1000/uL Normal 4 0 - 0.3 [facility] Basophils/leuk NFr Bld Auto 0.5 % Normal 4 0 - 1.4 [facility] Platelet # Bld Auto 545.0 x1000/uL Above high normal 0 4 150 - 420 [facility] Lymphocytes # Bld Auto 1.86 x 1000/uL Normal 08/22/202 4 0.6 - 3.7 [facility] Hgb Bld-mCnc 9.6 g/dL Below low normal 4 13.2 - 17.1 [facility] Basophils # Bld Auto 0.04 x 1000/uL Normal 01/16 4 0 - 1 [facility] RBC Auto-Rto 14.7 % Normal 4 11 - 15 [facility] Eosinophil/leuk NFr Bld Auto 2.0 % Normal 4 0 - 5 [facility] RBC # Bld Auto 3.51 M/uL Below low normal 4 4 - 6 [facility] Lymphocytes/leuk NFr Bld Auto 24.4 % Normal 4 17 - 50 [facility] Monocytes/leuk NFr Bld Auto 10.4 % Normal 4 4 - 12 [facility] nRBC/100 WBC Bld Auto-Rto 0.0 % Normal 4 0 - 1 [facility] Phosphate SerPl-mCnc 4.6 mg/dL Above high normal 4 2.2 - 4.5 [facility] Anion Gap3 SerPl-sCnc 9.0 Normal 4 7 - 17 [facility] Chloride SerPl-sCnc 106.0 mmol/L Normal 01/16/20 2 4 98 - 107 [facility] BUN SerPl-mCnc 26.0 mg/dL Above high normal 01/16/20 2 4 6 - 20 [facility] HCO3 SerPl-sCnc 29.0 mmol/L Normal 4 20 - 30 [facility] Calcium SerPl-mCnc 9.9 mg/dL Normal 4 8.8 - 10.2 [facility] Potassium SerPl-sCnc 3.8 mmol/L Normal 02 4 3.3 - 5.3 [facility] BUN/Creat SerPl 41.3 Above high normal 02 4 8 - 23 [facility] Sodium SerPl-sCnc 144.0 mmol/L Normal 4 136 - 144 [facility] Glucose SerPl-mCnc 137.0 mg/dL Above high normal 12/27 4 70 - 100 [facility] Creat SerPl-mCnc 0.63 mg/dL Normal 4 0.4 - 1.3 [facility] GFR/BSA.pred SerPlBld DDE-YHL-CcWBjr >60.0 mL/min/1.73m2 Normal 4 - [facility] Magnesium SerPl-mCnc 2.2 mg/dL Normal 02 4 1.7 - 2.4 [facility] nRBC # Bld Auto 0.0 x 1000/uL Normal 4 0 - 1 [facility] Monocytes/leuk NFr Bld Auto 12.8 % Above high normal 4 4 - 12 [facility] MCV RBC Auto 89.1 fL Normal 4 80 - 100 [facility] R[facility] RBC Auto-Rto 14.9 % Normal 4 11 - 15 [facility] Eosinophil # Bld Auto 0.17 x 1000/uL Normal 12/27 4 0 - 1 [facility] Imm Granulocytes/leuk NFr Bld Auto 0.2 % Normal 4 0 - 1 [facility] WBC # Bld Auto 5.4 x1000/uL Normal 4 4 - 11 [facility] MCHC RBC Auto-mCnc 31.5 g/dL Normal 4 31 - 36 [facility] Eosinophil/leuk NFr Bld Auto 3.2 % Normal 4 0 - 5 [facility] Monocytes # Bld Auto 0.69 x 1000/uL Normal 01/15 4 0 - 1 [facility] MCH RBC Qn Auto 28.1 pg Normal 4 27 - 33 [facility] Lymphocytes/leuk NFr Bld Auto 28.3 % Normal 4 17 - 50 [facility] Neutrophils # Bld Auto 2.95 x 1000/uL Normal 4 2 - 7.6 [facility] Lymphocytes # Bld Auto 1.52 x 1000/uL Normal 4 0.6 - 3.7 [facility] Basophils # Bld Auto 0.04 x 1000/uL Normal 01/15 4 0 - 1 [facility] nRBC/100 WBC Bld Auto-Rto 0.0 % Normal 4 0 - 1 [facility] Hgb Bld-mCnc 8.8 g/dL Below low normal 4 13.2 - 17.1 [facility] RBC # Bld Auto 3.13 M/uL Below low normal 4 4 - 6 [facility] Neutrophils/leuk NFr Bld Auto 54.8 % Normal 4 39 - 72 [facility] PMV Bld Auto 10.8 fL Normal 4 8 - 12 [facility] Platelet # Bld Auto 497.0 x1000/uL Above high normal 0 4 150 - 420 [facility] Basophils/leuk NFr Bld Auto 0.7 % Normal 4 0 - 1.4 [facility] Imm Granulocytes # Bld Auto 0.01 x 1000/uL Normal 4 0 - 0.3 [facility] Hct VFr Bld Auto 27.9 % Below low normal 02 4 38.5 - 50 [facility] ABO GROUPING O Normal 4 [facility] ANTIBODY SCREEN NEG Normal 01/15/20 2 4 [facility] SPECIMEN EXPIRATION DATE AND TIME 01/18/2024 23:59 Normal 4 [facility] RH TYPE POS Normal 4 [facility] Prealb SerPl Neph-mCnc 19.9 mg/dL Below low normal 4 20 - 40 [facility] Potassium SerPl-sCnc 3.6 mmol/L Normal 02 4 3.3 - 5.3 [facility] Calcium SerPl-mCnc 9.3 mg/dL Normal 4 8.8 - 10.2 [facility] Creat SerPl-mCnc 0.53 mg/dL Normal 4 0.4 - 1.3 [facility] Chloride SerPl-sCnc 106.0 mmol/L Normal 01/15/20 2 4 98 - 107 [facility] Sodium SerPl-sCnc 144.0 mmol/L Normal 4 136 - 144 [facility] GFR/BSA.pred SerPlBld EZI-VFF-WzTKwm >60.0 mL/min/1.73m2 Normal 4 - [facility] Anion Gap3 SerPl-sCnc 11.0 Normal 4 7 - 17 [facility] BUN SerPl-mCnc 24.0 mg/dL Above high normal 01/15/20 2 4 6 - 20 [facility] BUN/Creat SerPl 45.3 Above high normal 02 4 8 - 23 [facility] HCO3 SerPl-sCnc 27.0 mmol/L Normal 4 20 - 30 [facility] Glucose SerPl-mCnc 151.0 mg/dL Above high normal 12/27 4 70 - 100 [facility] Phosphate SerPl-mCnc 3.7 mg/dL Normal 02 4 2.2 - 4.5 [facility] CRP SerPl HS-mCnc 4.2 mg/L Above high normal 01/14 4 - [facility] Magnesium SerPl-mCnc 2.0 mg/dL Normal 02 4 1.7 - 2.4 [facility] Lymphocytes/leuk NFr Bld Auto 21.6 % Normal 4 17 - 50 [facility] Imm Granulocytes # Bld Auto 0.03 x 1000/uL Normal 4 0 - 0.3 [facility] Lymphocytes # Bld Auto 1.44 x 1000/uL Normal 4 0.6 - 3.7 [facility] Neutrophils # Bld Auto 4.41 x 1000/uL Normal 4 2 - 7.6 [facility] WBC # Bld Auto 6.7 x1000/uL Normal 4 4 - 11 [facility] MCH RBC Qn Auto 27.6 pg Normal 08/20/202 4 27 - 33 [facility] Monocytes/leuk NFr Bld Auto 10.2 % Normal 4 4 - 12 [facility] Eosinophil # Bld Auto 0.07 x 1000/uL Normal 12/27 0 4 0 - 1 [facility] RBC Auto-Rto 14.6 % Normal 4 11 - 15 [facility] PMV Bld Auto 10.8 fL Normal 4 8 - 12 [facility] Platelet # Bld Auto 498.0 x1000/uL Above high normal 0 4 150 - 420 [facility] nRBC # Bld Auto 0.0 x 1000/uL Normal 4 0 - 1 [facility] Neutrophils/leuk NFr Bld Auto 66.1 % Normal 4 39 - 72 [facility] Imm Granulocytes/leuk NFr Bld Auto 0.5 % Normal 4 0 - 1 [facility] MCV RBC Auto 87.0 fL Normal 4 80 - 100 [facility] Hct VFr Bld Auto 26.8 % Below low normal 02 4 38.5 - 50 [facility] Basophils # Bld Auto 0.03 x 1000/uL Normal 01/14 4 0 - 1 [facility] RBC # Bld Auto 3.08 M/uL Below low normal 4 4 - 6 [facility] Hgb Bld-mCnc 8.5 g/dL Below low normal 4 13.2 - 17.1 [facility] Eosinophil/leuk NFr Bld Auto 1.1 % Normal 4 0 - 5 [facility] Basophils/leuk NFr Bld Auto 0.5 % Normal 4 0 - 1.4 [facility] Monocytes # Bld Auto 0.68 x 1000/uL Normal 01/14 4 0 - 1 [facility] MCHC RBC Auto-mCnc 31.7 g/dL Normal 4 31 - 36 [facility] nRBC/100 WBC Bld Auto-Rto 0.0 % Normal 4 0 - 1 [facility] Prothrombin time 11.4 seconds Normal 4 9.6 - 12.3 [facility] aPTT PPP 39.1 seconds Above high normal 4 23 - 31.4 [facility] INR PPP 1.03 Normal 4 0.86 - 1.12 [facility] Phosphate SerPl-mCnc 3.8 mg/dL Normal 02 4 2.2 - 4.5 [facility] Sodium SerPl-sCnc 143.0 mmol/L Normal 4 136 - 144 [facility] Anion Gap3 SerPl-sCnc 9.0 Normal 4 7 - 17 [facility] Creat SerPl-mCnc 0.57 mg/dL Normal 4 0.4 - 1.3 [facility] BUN SerPl-mCnc 23.0 mg/dL Above high normal 01/13/20 2 4 6 - 20 [facility] BUN/Creat SerPl 40.4 Above high normal 02 4 8 - 23 [facility] Calcium SerPl-mCnc 9.4 mg/dL Normal 4 8.8 - 10.2 [facility] GFR/BSA.pred SerPlBld XUM-NYB-LfDUgw >60.0 mL/min/1.73m2 Normal 4 - [facility] Potassium SerPl-sCnc 3.7 mmol/L Normal 02 4 3.3 - 5.3 [facility] Chloride SerPl-sCnc 105.0 mmol/L Normal 01/13/20 2 4 98 - 107 [facility] HCO3 SerPl-sCnc 29.0 mmol/L Normal 4 20 - 30 [facility] Glucose SerPl-mCnc 122.0 mg/dL Above high normal 12/26 4 70 - 100 [facility] Magnesium SerPl-mCnc 2.0 mg/dL Normal 02 4 1.7 - 2.4 [facility] Neutrophils/leuk NFr Bld Auto 55.2 % Normal 4 39 - 72 [facility] Eosinophil # Bld Auto 0.27 x 1000/uL Normal 08/ 4 0 - 1 [facility] PMV Bld Auto 10.4 fL Normal 4 8 - 12 [facility] Basophils/leuk NFr Bld Auto 0.6 % Normal 4 0 - 1.4 [facility] nRBC/100 WBC Bld Auto-Rto 0.0 % Normal 4 0 - 1 [facility] RBC # Bld Auto 3.05 M/uL Below low normal 4 4 - 6 [facility] Neutrophils # Bld Auto 3.53 x 1000/uL Normal 4 2 - 7.6 [facility] MCHC RBC Auto-mCnc 30.7 g/dL Below low normal 01/12 4 31 - 36 [facility] Basophils # Bld Auto 0.04 x 1000/uL Normal 01/12 4 0 - 1 [facility] MCH RBC Qn Auto 27.2 pg Normal 4 27 - 33 [facility] WBC # Bld Auto 6.4 x1000/uL Normal 4 4 - 11 [facility] Hct VFr Bld Auto 27.0 % Below low normal 02 4 38.5 - 50 [facility] Platelet # Bld Auto 480.0 x1000/uL Above high normal 0 4 150 - 420 [facility] Monocytes # Bld Auto 0.71 x 1000/uL Normal 01/12 4 0 - 1 [facility] MCV RBC Auto 88.5 fL Normal 4 80 - 100 [facility] Lymphocytes # Bld Auto 1.82 x 1000/uL Normal 4 0.6 - 3.7 [facility] RDW RBC Auto-Rto 14.5 % Normal 4 11 - 15 [facility] Hgb Bld-mCnc 8.3 g/dL Below low normal 4 13.2 - 17.1 [facility] Imm Granulocytes/leuk NFr Bld Auto 0.5 % Normal 4 0 - 1 [facility] Eosinophil/leuk NFr Bld Auto 4.2 % Normal 4 0 - 5 [facility] Monocytes/leuk NFr Bld Auto 11.1 % Normal 4 4 - 12 [facility] nRBC # Bld Auto 0.0 x 1000/uL Normal 4 0 - 1 [facility] Lymphocytes/leuk NFr Bld Auto 28.4 % Normal 4 17 - 50 [facility] Imm Granulocytes # Bld Auto 0.03 x 1000/uL Normal 4 0 - 0.3 [facility] Procalcitonin SerPl-mCnc <0.06 ng/mL Normal 4 - [facility] RH TYPE POS Normal 4 [facility] ABO GROUPING O Normal 4 [facility] ANTIBODY SCREEN NEG Normal 01/11/20 2 4 [facility] SPECIMEN EXPIRATION DATE AND TIME 01/14/2024 23:59 Normal 4 [facility] Creat SerPl-mCnc 0.58 mg/dL Normal 4 0.4 - 1.3 [facility] HCO3 SerPl-sCnc 29.0 mmol/L Normal 4 20 - 30 [facility] BUN/Creat SerPl 41.4 Above high normal 02 4 8 - 23 [facility] Anion Gap3 SerPl-sCnc 11.0 Normal 4 7 - 17 [facility] BUN SerPl-mCnc 24.0 mg/dL Above high normal 01/11/20 2 4 6 - 20 [facility] Calcium SerPl-mCnc 9.9 mg/dL Normal 4 8.8 - 10.2 [facility] Potassium SerPl-sCnc 4.2 mmol/L Normal 02 4 3.3 - 5.3 [facility] Chloride SerPl-sCnc 107.0 mmol/L Normal 01/11/20 2 4 98 - 107 [facility] GFR/BSA.pred SerPlBld VLS-CYO-WgWVcg >60.0 mL/min/1.73m2 Normal 4 - [facility] Glucose SerPl-mCnc 128.0 mg/dL Above high normal 12/26 4 70 - 100 [facility] Sodium SerPl-sCnc 147.0 mmol/L Above high normal 01/10 4 136 - 144 [facility] Phosphate SerPl-mCnc 3.4 mg/dL Normal 02 4 2.2 - 4.5 [facility] Magnesium SerPl-mCnc 2.0 mg/dL Normal 02 4 1.7 - 2.4 [facility] nRBC/100 WBC Bld Auto-Rto 0.0 % Normal 4 0 - 1 [facility] MCV RBC Auto 89.0 fL Normal 4 80 - 100 [facility] Imm Granulocytes # Bld Auto 0.03 x 1000/uL Normal 4 0 - 0.3 [facility] Neutrophils # Bld Auto 4.03 x 1000/uL Normal 4 2 - 7.6 [facility] PMV Bld Auto 10.8 fL Normal 4 8 - 12 [facility] WBC # Bld Auto 7.0 x1000/uL Normal 4 4 - 11 [facility] RBC # Bld Auto 3.26 M/uL Below low normal 4 4 - 6 [facility] Hgb Bld-mCnc 9.2 g/dL Below low normal 4 13.2 - 17.1 [facility] Monocytes # Bld Auto 0.61 x 1000/uL Normal 01/10 4 0 - 1 [facility] MCHC RBC Auto-mCnc 31.7 g/dL Normal 4 31 - 36 [facility] Eosinophil # Bld Auto 0.2 x 1000/uL Normal 01/10 4 0 - 1 [facility] Hct VFr Bld Auto 29.0 % Below low normal 02 4 38.5 - 50 [facility] MCH RBC Qn Auto 28.2 pg Normal 4 27 - 33 [facility] Lymphocytes/leuk NFr Bld Auto 29.8 % Normal 4 17 - 50 [facility] RDW RBC Auto-Rto 14.2 % Normal 4 11 - 15 [facility] Basophils # Bld Auto 0.04 x 1000/uL Normal 01/10 4 0 - 1 [facility] Imm Granulocytes/leuk NFr Bld Auto 0.4 % Normal 4 0 - 1 [facility] Lymphocytes # Bld Auto 2.08 x 1000/uL Normal 4 0.6 - 3.7 [facility] nRBC # Bld Auto 0.0 x 1000/uL Normal 4 0 - 1 [facility] Platelet # Bld Auto 565.0 x1000/uL Above high normal 0 4 150 - 420 [facility] Basophils/leuk NFr Bld Auto 0.6 % Normal 4 0 - 1.4 [facility] Monocytes/leuk NFr Bld Auto 8.7 % Normal 4 4 - 12 [facility] Eosinophil/leuk NFr Bld Auto 2.9 % Normal 4 0 - 5 [facility] Neutrophils/leuk NFr Bld Auto 57.6 % Normal 4 39 - 72 [facility] Magnesium SerPl-mCnc 2.0 mg/dL Normal 02 4 1.7 - 2.4 [facility] GFR/BSA.pred SerPlBld GFQ-UAR-RyUZct >60.0 mL/min/1.73m2 Normal 4 - [facility] Creat SerPl-mCnc 0.58 mg/dL Normal 4 0.4 - 1.3 [facility] Anion Gap3 SerPl-sCnc 11.0 Normal 4 7 - 17 [facility] Sodium SerPl-sCnc 147.0 mmol/L Above high normal 01/09 4 136 - 144 [facility] BUN SerPl-mCnc 27.0 mg/dL Above high normal 01/10/20 2 4 6 - 20 [facility] Potassium SerPl-sCnc 4.1 mmol/L Normal 02 4 3.3 - 5.3 [facility] HCO3 SerPl-sCnc 28.0 mmol/L Normal 4 20 - 30 [facility] BUN/Creat SerPl 46.6 Above high normal 02 4 8 - 23 [facility] Glucose SerPl-mCnc 145.0 mg/dL Above high normal 12/26 4 70 - 100 [facility] Calcium SerPl-mCnc 9.8 mg/dL Normal 4 8.8 - 10.2 [facility] Chloride SerPl-sCnc 108.0 mmol/L Above high normal 4 98 - 107 [facility] Phosphate SerPl-mCnc 3.6 mg/dL Normal 02 4 2.2 - 4.5 [facility] Prothrombin time 11.0 seconds Normal 4 9.6 - 12.3 [facility] INR PPP 0.99 Normal 4 0.86 - 1.12 [facility] aPTT PPP 40.1 seconds Above high normal 4 23 - 31.4 [facility] Monocytes/leuk NFr Bld Auto 11.3 % Normal 4 4 - 12 [facility] Lymphocytes # Bld Auto 1.42 x 1000/uL Normal 4 0.6 - 3.7 [facility] Eosinophil/leuk NFr Bld Auto 3.1 % Normal 4 0 - 5 [facility] nRBC # Bld Auto 0.0 x 1000/uL Normal 4 0 - 1 [facility] Neutrophils/leuk NFr Bld Auto 54.8 % Normal 4 39 - 72 [facility] Neutrophils # Bld Auto 2.61 x 1000/uL Normal 4 2 - 7.6 [facility] Monocytes # Bld Auto 0.54 x 1000/uL Normal 01/09 4 0 - 1 [facility] Hct VFr Bld Auto 27.9 % Below low normal 02 4 38.5 - 50 [facility] MCV RBC Auto 90.0 fL Normal 4 80 - 100 [facility] Hgb Bld-mCnc 8.5 g/dL Below low normal 4 13.2 - 17.1 [facility] WBC # Bld Auto 4.8 x1000/uL Normal 4 4 - 11 [facility] Imm Granulocytes # Bld Auto 0.02 x 1000/uL Normal 4 0 - 0.3 [facility] Platelet # Bld Auto 508.0 x1000/uL Above high normal 0 4 150 - 420 [facility] RDW RBC Auto-Rto 14.5 % Normal 4 11 - 15 [facility] MCHC RBC Auto-mCnc 30.5 g/dL Below low normal 01/09 4 31 - 36 [facility] RBC # Bld Auto 3.1 M/uL Below low normal 4 4 - 6 [facility] Eosinophil # Bld Auto 0.15 x 1000/uL Normal 08 4 0 - 1 [facility] Imm Granulocytes/leuk NFr Bld Auto 0.4 % Normal 4 0 - 1 [facility] PMV Bld Auto 10.8 fL Normal 4 8 - 12 [facility] Basophils/leuk NFr Bld Auto 0.6 % Normal 4 0 - 1.4 [facility] nRBC/100 WBC Bld Auto-Rto 0.0 % Normal 4 0 - 1 [facility] MCH RBC Qn Auto 27.4 pg Normal 4 27 - 33 [facility] Basophils # Bld Auto 0.03 x 1000/uL Normal 01/09 4 0 - 1 [facility] Lymphocytes/leuk NFr Bld Auto 29.8 % Normal 4 17 - 50 [facility] nRBC/100 WBC Bld Auto-Rto 0.0 % Normal 4 0 - 1 [facility] RBC # Bld Auto 3.18 M/uL Below low normal 4 4 - 6 [facility] Hct VFr Bld Auto 28.7 % Below low normal 02 4 38.5 - 50 [facility] nRBC # Bld Auto 0.0 x 1000/uL Normal 4 0 - 1 [facility] Basophils/leuk NFr Bld Auto 0.8 % Normal 4 0 - 1.4 [facility] Granulocytes/leuk NFr Bld Auto 0.3 % Normal 4 0 - 1 [facility] Monocytes # Bld Auto 0.57 x 1000/uL Normal 01/08 4 0 - 1 [facility] MCV RBC Auto 90.3 fL Normal 4 80 - 100 [facility] Basophils # Bld Auto 0.05 x 1000/uL Normal 01/08 4 0 - 1 [facility] MCHC RBC Auto-mCnc 31.0 g/dL Normal 4 31 - 36 [facility] Monocytes/leuk NFr Bld Auto 9.1 % Normal 4 4 - 12 [facility] Neutrophils # Bld Auto 4.0 x 1000/uL Normal 4 2 - 7.6 [facility] Lymphocytes/leuk NFr Bld Auto 23.8 % Normal 4 17 - 50 [facility] MCH RBC Qn Auto 28.0 pg Normal 4 27 - 33 [facility] PMV Bld Auto 10.9 fL Normal 4 8 - 12 [facility] Lymphocytes # Bld Auto 1.5 x 1000/uL Normal 4 0.6 - 3.7 [facility] Eosinophil/leuk NFr Bld Auto 2.4 % Normal 4 0 - 5 [facility] RDW RBC Auto-Rto 14.4 % Normal 4 11 - 15 [facility] Imm Granulocytes # Bld Auto 0.02 x 1000/uL Normal 4 0 - 0.3 [facility] Eosinophil # Bld Auto 0.15 x 1000/uL Normal 12/26 4 0 - 1 [facility] Neutrophils/leuk NFr Bld Auto 63.6 % Normal 4 39 - 72 [facility] WBC # Bld Auto 6.3 x1000/uL Normal 4 4 - 11 [facility] Platelet # Bld Auto 536.0 x1000/uL Above high normal 0 4 150 - 420 [facility] Hgb Bld-mCnc 8.9 g/dL Below low normal 4 13.2 - 17.1 [facility] Creat SerPl-mCnc 0.53 mg/dL Normal 4 0.4 - 1.3 [facility] Anion Gap3 SerPl-sCnc 11.0 Normal 4 7 - 17 [facility] BUN SerPl-mCnc 24.0 mg/dL Above high normal 01/09/20 2 4 6 - 20 [facility] Glucose SerPl-mCnc 146.0 mg/dL Above high normal 12/26 4 70 - 100 [facility] Chloride SerPl-sCnc 107.0 mmol/L Normal 01/09/20 2 4 98 - 107 [facility] HCO3 SerPl-sCnc 29.0 mmol/L Normal 4 20 - 30 [facility] BUN/Creat SerPl 45.3 Above high normal 02 4 8 - 23 [facility] Potassium SerPl-sCnc 4.2 mmol/L Normal 02 4 3.3 - 5.3 [facility] GFR/BSA.pred SerPlBld NOZ-QCK-ReEIid >60.0 mL/min/1.73m2 Normal 4 - [facility] Calcium SerPl-mCnc 10.0 mg/dL Normal 4 8.8 - 10.2 [facility] Sodium SerPl-sCnc 147.0 mmol/L Above high normal 01/08 4 136 - 144 [facility] Magnesium SerPl-mCnc 2.1 mg/dL Normal 02 4 1.7 - 2.4 [facility] GFR/BSA.pred SerPlBld ENE-CPF-BvIHoc >60.0 mL/min/1.73m2 Normal 4 - [facility] Glucose SerPl-mCnc 145.0 mg/dL Above high normal 12/26 4 70 - 100 [facility] BUN/Creat SerPl 47.1 Above high normal 02 4 8 - 23 [facility] Creat SerPl-mCnc 0.51 mg/dL Normal 4 0.4 - 1.3 [facility] Potassium SerPl-sCnc 3.8 mmol/L Normal 02 4 3.3 - 5.3 [facility] Sodium SerPl-sCnc 147.0 mmol/L Above high normal 01/08 4 136 - 144 [facility] Chloride SerPl-sCnc 109.0 mmol/L Above high normal 4 98 - 107 [facility] HCO3 SerPl-sCnc 31.0 mmol/L Above high normal 02 4 20 - 30 [facility] Anion Gap3 SerPl-sCnc 7.0 Normal 4 7 - 17 [facility] BUN SerPl-mCnc 24.0 mg/dL Above high normal 01/09/20 2 4 6 - 20 [facility] Calcium SerPl-mCnc 9.4 mg/dL Normal 4 8.8 - 10.2 [facility] Phosphate SerPl-mCnc 4.0 mg/dL Normal 02 4 2.2 - 4.5 [facility] RBC # Bld Auto 2.89 M/uL Below low normal 4 4 - 6 [facility] MCV RBC Auto 90.3 fL Normal 4 80 - 100 [facility] Monocytes/leuk NFr Bld Auto 11.4 % Normal 4 4 - 12 [facility] Monocytes # Bld Auto 0.6 x 1000/uL Normal 4 0 - 1 [facility] Hgb Bld-mCnc 7.8 g/dL Below low normal 4 13.2 - 17.1 [facility] Hct VFr Bld Auto 26.1 % Below low normal 02 4 38.5 - 50 [facility] PMV Bld Auto 10.8 fL Normal 4 8 - 12 [facility] Lymphocytes/leuk NFr Bld Auto 28.2 % Normal 4 17 - 50 [facility] Neutrophils # Bld Auto 3.01 x 1000/uL Normal 4 2 - 7.6 [facility] Platelet # Bld Auto 470.0 x1000/uL Above high normal 0 4 150 - 420 [facility] Lymphocytes # Bld Auto 1.48 x 1000/uL Normal 4 0.6 - 3.7 [facility] RDW RBC Auto-Rto 14.4 % Normal 4 11 - 15 [facility] nRBC # Bld Auto 0.0 x 1000/uL Normal 4 0 - 1 [facility] Imm Granulocytes # Bld Auto 0.01 x 1000/uL Normal 4 0 - 0.3 [facility] Eosinophil # Bld Auto 0.12 x 1000/uL Normal 12/26 4 0 - 1 [facility] MCH RBC Qn Auto 27.0 pg Normal 4 27 - 33 [facility] Eosinophil/leuk NFr Bld Auto 2.3 % Normal 4 0 - 5 [facility] nRBC/100 WBC Bld Auto-Rto 0.0 % Normal 4 0 - 1 [facility] Basophils/leuk NFr Bld Auto 0.6 % Normal 4 0 - 1.4 [facility] WBC # Bld Auto 5.3 x1000/uL Normal 4 4 - 11 [facility] Imm Granulocytes/leuk NFr Bld Auto 0.2 % Normal 4 0 - 1 [facility] Neutrophils/leuk NFr Bld Auto 57.3 % Normal 4 39 - 72 [facility] MCHC RBC Auto-mCnc 29.9 g/dL Below low normal 01/08 4 31 - 36 [facility] Basophils # Bld Auto 0.03 x 1000/uL Normal 01/08 4 0 - 1 [facility] WBC #/area UrnS Auto 104.0 /HPF Above high normal 4 0 - 5 [facility] RBC #/area UrnS Auto 15.0 /HPF Above high normal 4 0 - 2 [facility] Bacteria # Ur Auto Rare Normal 4 - [facility] Prot Ur Strip.auto-mCnc Trace Normal 4 - [facility] Color Ur Auto Yellow Normal 4 - [facility] WBC # Ur Strip 4+ Abnormal 4 - [facility] Hgb Ur Ql Strip.auto Negative Normal 02 4 - [facility] Clarity Ur Refract.auto Cloudy Abnormal 4 - [facility] Urobilinogen Ur Strip-mCnc 3.0 mg/dL Above high normal 4 - [facility] Glucose Ur Strip.auto-mCnc Negative Normal 4 - [facility] pH Ur Strip.auto 7.5 Normal 4 5.5 - 7.5 [facility] Ketones Ur Strip.auto-mCnc Negative Normal 4 - [facility] Nitrite Ur Ql Strip.auto Negative Normal 4 - [facility] Bilirub Ur Ql Strip.auto Negative Normal 4 - [facility] Sp Gr Ur Refract.auto 1.019 Normal 4 1.005 - 1.03 [facility] ANTIBODY SCREEN NEG Normal 01/08/20 2 4 [facility] ABO GROUPING O Normal 4 [facility] RH TYPE POS Normal 4 [facility] SPECIMEN EXPIRATION DATE AND TIME 01/11/2024 23:59 Normal 4 [facility] CRP SerPl HS-mCnc 68.7 mg/L Above high normal 01/07 4 - [facility] Prealb SerPl Neph-mCnc 16.0 mg/dL Below low normal 4 20 - 40 [facility] Prothrombin time 11.1 seconds Normal 4 9.6 - 12.3 [facility] aPTT PPP 40.9 seconds Above high normal 4 23 - 31.4 [facility] INR PPP 1.0 Normal 4 0.86 - 1.12 [facility] Sodium SerPl-sCnc 148.0 mmol/L Above high normal 01/07 4 136 - 144 [facility] Anion Gap3 SerPl-sCnc 10.0 Normal 4 7 - 17 [facility] BUN SerPl-mCnc 22.0 mg/dL Above high normal 01/08/20 2 4 6 - 20 [facility] Chloride SerPl-sCnc 109.0 mmol/L Above high normal 4 98 - 107 [facility] GFR/BSA.pred SerPlBld IDR-ZZJ-AzMGfl >60.0 mL/min/1.73m2 Normal 4 - [facility] Calcium SerPl-mCnc 10.2 mg/dL Normal 4 8.8 - 10.2 [facility] BUN/Creat SerPl 41.5 Above high normal 02 4 8 - 23 [facility] Creat SerPl-mCnc 0.53 mg/dL Normal 4 0.4 - 1.3 [facility] Potassium SerPl-sCnc 3.7 mmol/L Normal 02 4 3.3 - 5.3 [facility] Glucose SerPl-mCnc 137.0 mg/dL Above high normal 12/26 4 70 - 100 [facility] HCO3 SerPl-sCnc 29.0 mmol/L Normal 4 20 - 30 [facility] Magnesium SerPl-mCnc 1.9 mg/dL Normal 02 4 1.7 - 2.4 [facility] Phosphate SerPl-mCnc 3.4 mg/dL Normal 02 4 2.2 - 4.5 [facility] PMV Bld Auto 10.9 fL Normal 4 8 - 12 [facility] RDW RBC Auto-Rto 14.2 % Normal 4 11 - 15 [facility] MCHC RBC Auto-mCnc 31.1 g/dL Normal 4 31 - 36 [facility] Hgb Bld-mCnc 9.1 g/dL Below low normal 4 13.2 - 17.1 [facility] MCV RBC Auto 90.7 fL Normal 4 80 - 100 [facility] MCH RBC Qn Auto 28.2 pg Normal 4 27 - 33 [facility] Neutrophils # Bld Auto 5.37 x 1000/uL Normal 4 2 - 7.6 [facility] Neutrophils/leuk NFr Bld Auto 71.3 % Normal 4 39 - 72 [facility] nRBC # Bld Auto 0.0 x 1000/uL Normal 4 0 - 1 [facility] Monocytes/leuk NFr Bld Auto 9.6 % Normal 4 4 - 12 [facility] nRBC/100 WBC Bld Auto-Rto 0.0 % Normal 4 0 - 1 [facility] Imm Granulocytes # Bld Auto 0.02 x 1000/uL Normal 4 0 - 0.3 [facility] Hct VFr Bld Auto 29.3 % Below low normal 02 4 38.5 - 50 [facility] Lymphocytes # Bld Auto 1.29 x 1000/uL Normal 4 0.6 - 3.7 [facility] Imm Granulocytes/leuk NFr Bld Auto 0.3 % Normal 4 0 - 1 [facility] Basophils/leuk NFr Bld Auto 0.5 % Normal 4 0 - 1.4 [facility] Basophils # Bld Auto 0.04 x 1000/uL Normal 01/07 4 0 - 1 [facility] Eosinophil # Bld Auto 0.09 x 1000/uL Normal 08/ 3/202 4 0 - 1 [facility] RBC # Bld Auto 3.23 M/uL Below low normal 4 4 - 6 [facility] Lymphocytes/leuk NFr Bld Auto 17.1 % Normal 4 17 - 50 [facility] WBC # Bld Auto 7.5 x1000/uL Normal 4 4 - 11 [facility] Eosinophil/leuk NFr Bld Auto 1.2 % Normal 4 0 - 5 [facility] Platelet # Bld Auto 504.0 x1000/uL Above high normal 0 4 150 - 420 [facility] Monocytes # Bld Auto 0.72 x 1000/uL Normal 01/07 4 0 - 1 [facility] B[facility] ABO GROUPING O Normal 4 [facility] ANTIBODY SCREEN NEG Normal 01/06/20 2 4 [facility] RH TYPE POS Normal 4 [facility] SPECIMEN EXPIRATION DATE AND TIME 01/09/2024 23:59 Normal 4 [facility] INR PPP 0.98 Normal 4 0.86 - 1.12 [facility] aPTT PPP 41.4 seconds Above high normal 4 23 - 31.4 [facility] Prothrombin time 10.9 seconds Normal 4 9.6 - 12.3 [facility] Creat SerPl-mCnc 0.56 mg/dL Normal 4 0.4 - 1.3 [facility] Glucose SerPl-mCnc 141.0 mg/dL Above high normal 12/26 4 70 - 100 [facility] BUN/Creat SerPl 39.3 Above high normal 02 4 8 - 23 [facility] BUN SerPl-mCnc 22.0 mg/dL Above high normal 01/06/20 2 4 6 - 20 [facility] GFR/BSA.pred SerPlBld [id number] >60.0 mL/min/1.73m2 Normal 4 - [facility] Sodium SerPl-sCnc 144.0 mmol/L Normal 4 136 - 144 [facility] Calcium SerPl-mCnc 9.6 mg/dL Normal 4 8.8 - 10.2 [facility] HCO3 SerPl-sCnc 28.0 mmol/L Normal 4 20 - 30 [facility] Chloride SerPl-sCnc 106.0 mmol/L Normal 01/06/20 2 4 98 - 107 [facility] Anion Gap3 SerPl-sCnc 10.0 Normal 4 7 - 17 [facility] Potassium SerPl-sCnc 3.6 mmol/L Normal 02 4 3.3 - 5.3 [facility] Phosphate SerPl-mCnc 3.3 mg/dL Normal 02 4 2.2 - 4.5 [facility] Magnesium SerPl-mCnc 2.9 mg/dL Above high normal 4 1.7 - 2.4 [facility] Monocytes # Bld Auto 1.16 x 1000/uL Above high normal 4 0 - 1 [facility] nRBC/100 WBC Bld Auto-Rto 0.0 % Normal 4 0 - 1 [facility] Basophils # Bld Auto 0.05 x 1000/uL Normal 01/05 4 0 - 1 [facility] Neutrophils/leuk NFr Bld Auto 54.9 % Normal 4 39 - 72 [facility] MCV RBC Auto 89.2 fL Normal 4 80 - 100 [facility] Lymphocytes/leuk NFr Bld Auto 27.5 % Normal 4 17 - 50 [facility] Imm Granulocytes/leuk NFr Bld Auto 0.4 % Normal 4 0 - 1 [facility] Neutrophils # Bld Auto 4.07 x 1000/uL Normal 4 2 - 7.6 [facility] Lymphocytes # Bld Auto 2.04 x 1000/uL Normal 4 0.6 - 3.7 [facility] nRBC # Bld Auto 0.0 x 1000/uL Normal 4 0 - 1 [facility] MCH RBC Qn Auto 27.9 pg Normal 4 27 - 33 [facility] Hct VFr Bld Auto 28.1 % Below low normal 02 4 38.5 - 50 [facility] Hgb Bld-mCnc 8.8 g/dL Below low normal 4 13.2 - 17.1 [facility] WBC # Bld Auto 7.4 x1000/uL Normal 4 4 - 11 [facility] PMV Bld Auto 10.8 fL Normal 4 8 - 12 [facility] Platelet # Bld Auto 432.0 x1000/uL Above high normal 0 4 150 - 420 [facility] RBC # Bld Auto 3.15 M/uL Below low normal 4 4 - 6 [facility] Imm Granulocytes # Bld Auto 0.03 x 1000/uL Normal 4 0 - 0.3 [facility] Monocytes/leuk NFr Bld Auto 15.7 % Above high normal 4 4 - 12 [facility] Eosinophil/leuk NFr Bld Auto 0.8 % Normal 4 0 - 5 [facility] Basophils/leuk NFr Bld Auto 0.7 % Normal 4 0 - 1.4 [facility] RDW RBC Auto-Rto 14.5 % Normal 4 11 - 15 [facility] Eosinophil # Bld Auto 0.06 x 1000/uL Normal 12/26 4 0 - 1 [facility] MCHC RBC Auto-mCnc 31.3 g/dL Normal 4 31 - 36 [facility] Creat SerPl-mCnc 0.54 mg/dL Normal 4 0.4 - 1.3 [facility] Chloride SerPl-sCnc 104.0 mmol/L Normal 01/04/20 2 4 98 - 107 [facility] Anion Gap3 SerPl-sCnc 9.0 Normal 4 7 - 17 [facility] Glucose SerPl-mCnc 137.0 mg/dL Above high normal 4 70 - 100 [facility] HCO3 SerPl-sCnc 28.0 mmol/L Normal 4 20 - 30 [facility] Calcium SerPl-mCnc 9.5 mg/dL Normal 4 8.8 - 10.2 [facility] BUN SerPl-mCnc 20.0 mg/dL Normal 4 6 - 20 [facility] BUN/Creat SerPl 37.0 Above high normal 02 4 8 - 23 [facility] Sodium SerPl-sCnc 141.0 mmol/L Normal 4 136 - 144 [facility] GFR/BSA.pred SerPlBld [id number] >60.0 mL/min/1.73m2 Normal 4 - [facility] Potassium SerPl-sCnc 4.0 mmol/L Normal 02 4 3.3 - 5.3 [facility] Phosphate SerPl-mCnc 3.7 mg/dL Normal 02 4 2.2 - 4.5 [facility] Magnesium SerPl-mCnc 1.9 mg/dL Normal 02 4 1.7 - 2.4 [facility] Prothrombin time 11.4 seconds Normal 4 9.6 - 12.3 [facility] INR PPP 1.03 Normal 4 0.86 - 1.12 [facility] aPTT PPP 40.5 seconds Above high normal 4 23 - 31.4 [facility] Neutrophils/leuk NFr Bld Auto 65.8 % Normal 4 39 - 72 [facility] PMV Bld Auto 10.7 fL Normal 4 8 - 12 [facility] Lymphocytes/leuk NFr Bld Auto 19.4 % Normal 4 17 - 50 [facility] Basophils/leuk NFr Bld Auto 0.3 % Normal 4 0 - 1.4 [facility] nRBC # Bld Auto 0.0 x 1000/uL Normal 4 0 - 1 [facility] Eosinophil # Bld Auto 0.02 x 1000/uL Normal 08/ 4 0 - 1 [facility] Imm Granulocytes/leuk NFr Bld Auto 0.3 % Normal 4 0 - 1 [facility] Hct VFr Bld Auto 26.9 % Below low normal 02 4 38.5 - 50 [facility] Imm Granulocytes # Bld Auto 0.02 x 1000/uL Normal 4 0 - 0.3 [facility] Neutrophils # Bld Auto 5.04 x 1000/uL Normal 4 2 - 7.6 [facility] Monocytes # Bld Auto 1.06 x 1000/uL Above high normal 4 0 - 1 [facility] Lymphocytes # Bld Auto 1.48 x 1000/uL Normal 4 0.6 - 3.7 [facility] RBC # Bld Auto 3.02 M/uL Below low normal 4 4 - 6 [facility] WBC # Bld Auto 7.6 x1000/uL Normal 4 4 - 11 [facility] Eosinophil/leuk NFr Bld Auto 0.3 % Normal 4 0 - 5 [facility] MCV RBC Auto 89.1 fL Normal 4 80 - 100 [facility] Platelet # Bld Auto 419.0 x1000/uL Normal 4 150 - 420 [facility] MCHC RBC Auto-mCnc 31.6 g/dL Normal 4 31 - 36 [facility] MCH RBC Qn Auto 28.1 pg Normal 4 27 - 33 [facility] RDW RBC Auto-Rto 14.5 % Normal 4 11 - 15 [facility] nRBC/100 WBC Bld Auto-Rto 0.0 % Normal 4 0 - 1 [facility] Hgb Bld-mCnc 8.5 g/dL Below low normal 4 13.2 - 17.1 [facility] Monocytes/leuk NFr Bld Auto 13.9 % Above high normal 4 4 - 12 [facility] Basophils # Bld Auto 0.02 x 1000/uL Normal 01/03 4 0 - 1 [facility] ANTIBODY SCREEN NEG Normal 01/03/20 2 4 [facility] RH TYPE POS Normal 4 [facility] ABO GROUPING O Normal 4 [facility] SPECIMEN EXPIRATION DATE AND TIME 01/06/2024 23:59 Normal 4 [facility] Phosphate SerPl-mCnc 3.6 mg/dL Normal 02 4 2.2 - 4.5 [facility] GFR/BSA.pred SerPlBld JDU-[id number] >60.0 mL/min/1.73m2 Normal 4 - [facility] Calcium SerPl-mCnc 9.8 mg/dL Normal 4 8.8 - 10.2 [facility] Creat SerPl-mCnc 0.53 mg/dL Normal 4 0.4 - 1.3 [facility] HCO3 SerPl-sCnc 29.0 mmol/L Normal 4 20 - 30 [facility] Chloride SerPl-sCnc 107.0 mmol/L Normal 01/03/20 2 4 98 - 107 [facility] Anion Gap3 SerPl-sCnc 11.0 Normal 4 7 - 17 [facility] BUN SerPl-mCnc 20.0 mg/dL Normal 4 6 - 20 [facility] Potassium SerPl-sCnc 4.1 mmol/L Normal 02 4 3.3 - 5.3 [facility] Sodium SerPl-sCnc 147.0 mmol/L Above high normal 01/02 4 136 - 144 [facility] BUN/Creat SerPl 37.7 Above high normal 02 4 8 - 23 [facility] Glucose SerPl-mCnc 118.0 mg/dL Above high normal 4 70 - 100 [facility] Magnesium SerPl-mCnc 2.0 mg/dL Normal 02 4 1.7 - 2.4 [facility] Monocytes/leuk NFr Bld Auto 13.3 % Above high normal 4 4 - 12 [facility] Neutrophils # Bld Auto 5.49 x 1000/uL Normal 4 2 - 7.6 [facility] Imm Granulocytes # Bld Auto 0.03 x 1000/uL Normal 4 0 - 0.3 [facility] Platelet # Bld Auto 478.0 x1000/uL Above high normal 0 4 150 - 420 [facility] Hct VFr Bld Auto 31.1 % Below low normal 02 4 38.5 - 50 [facility] PMV Bld Auto 10.5 fL Normal 4 8 - 12 [facility] MCH RBC Qn Auto 27.5 pg Normal 4 27 - 33 [facility] MCV RBC Auto 90.9 fL Normal 4 80 - 100 [facility] nRBC/100 WBC Bld Auto-Rto 0.0 % Normal 4 0 - 1 [facility] Hgb Bld-mCnc 9.4 g/dL Below low normal 4 13.2 - 17.1 [facility] RDW RBC Auto-Rto 14.6 % Normal 4 11 - 15 [facility] nRBC # Bld Auto 0.0 x 1000/uL Normal 4 0 - 1 [facility] Lymphocytes/leuk NFr Bld Auto 21.7 % Normal 4 17 - 50 [facility] Eosinophil # Bld Auto 0.08 x 1000/uL Normal 08 4 0 - 1 [facility] Basophils/leuk NFr Bld Auto 0.3 % Normal 4 0 - 1.4 [facility] Neutrophils/leuk NFr Bld Auto 63.5 % Normal 4 39 - 72 [facility] Monocytes # Bld Auto 1.15 x 1000/uL Above high normal 4 0 - 1 [facility] Eosinophil/leuk NFr Bld Auto 0.9 % Normal 4 0 - 5 [facility] WBC # Bld Auto 8.7 x1000/uL Normal 4 4 - 11 [facility] Imm Granulocytes/leuk NFr Bld Auto 0.3 % Normal 4 0 - 1 [facility] RBC # Bld Auto 3.42 M/uL Below low normal 4 4 - 6 [facility] Lymphocytes # Bld Auto 1.88 x 1000/uL Normal 4 0.6 - 3.7 [facility] Basophils # Bld Auto 0.03 x 1000/uL Normal 01/02 4 0 - 1 [facility] MCHC RBC Auto-mCnc 30.2 g/dL Below low normal 01/02 4 31 - 36 [facility] Valproate SerPl-mCnc 67.3 ug/mL Normal 02 4 50 - 100 [facility] Prealb SerPl Neph-mCnc 19.4 mg/dL Below low normal 4 20 - 40 [facility] Phosphate SerPl-mCnc 3.3 mg/dL Normal 02 4 2.2 - 4.5 [facility] Sodium SerPl-sCnc 145.0 mmol/L Above high normal 12/31 4 136 - 144 [facility] Potassium SerPl-sCnc 3.6 mmol/L Normal 02 4 3.3 - 5.3 [facility] BUN/Creat SerPl 35.8 Above high normal 02 4 8 - 23 [facility] Calcium SerPl-mCnc 9.4 mg/dL Normal 4 8.8 - 10.2 [facility] Creat SerPl-mCnc 0.53 mg/dL Normal 4 0.4 - 1.3 [facility] Chloride SerPl-sCnc 105.0 mmol/L Normal 01/01/20 2 4 98 - 107 [facility] GFR/BSA.pred SerPlBld IFJ-[id number]-[id number] >60.0 mL/min/1.73m2 Normal 4 - [facility] Glucose SerPl-mCnc 146.0 mg/dL Above high normal 08 4 70 - 100 [facility] HCO3 SerPl-sCnc 27.0 mmol/L Normal 4 20 - 30 [facility] BUN SerPl-mCnc 19.0 mg/dL Normal 4 6 - 20 [facility] Anion Gap3 SerPl-sCnc 13.0 Normal 4 7 - 17 [facility] Magnesium SerPl-mCnc 1.9 mg/dL Normal 02 4 1.7 - 2.4 [facility] CRP SerPl HS-mCnc 11.7 mg/L Above high normal 12/31 4 - [facility] Hgb Bld-mCnc 9.1 g/dL Below low normal 4 13.2 - 17.1 [facility] Lymphocytes/leuk NFr Bld Auto 24.3 % Normal 4 17 - 50 [facility] Eosinophil # Bld Auto 0.05 x 1000/uL Normal 4 0 - 1 [facility] Neutrophils/leuk NFr Bld Auto 60.9 % Normal 4 39 - 72 [facility] Imm Granulocytes # Bld Auto 0.02 x 1000/uL Normal 4 0 - 0.3 [facility] nRBC/100 WBC Bld Auto-Rto 0.0 % Normal 4 0 - 1 [facility] MCHC RBC Auto-mCnc 31.2 g/dL Normal 4 31 - 36 [facility] Basophils/leuk NFr Bld Auto 0.6 % Normal 4 0 - 1.4 [facility] MCH RBC Qn Auto 27.8 pg Normal 4 27 - 33 [facility] Platelet # Bld Auto 507.0 x1000/uL Above high normal 0 4 150 - 420 [facility] Monocytes/leuk NFr Bld Auto 13.2 % Above high normal 4 4 - 12 [facility] Eosinophil/leuk NFr Bld Auto 0.7 % Normal 4 0 - 5 [facility] RBC # Bld Auto 3.27 M/uL Below low normal 4 4 - 6 [facility] Imm Granulocytes/leuk NFr Bld Auto 0.3 % Normal 4 0 - 1 [facility] Monocytes # Bld Auto 0.95 x 1000/uL Normal 12/31 4 0 - 1 [facility] nRBC # Bld Auto 0.0 x 1000/uL Normal 4 0 - 1 [facility] Neutrophils # Bld Auto 4.37 x 1000/uL Normal 4 2 - 7.6 [facility] MCV RBC Auto 89.3 fL Normal 4 80 - 100 [facility] Basophils # Bld Auto 0.04 x 1000/uL Normal 12/31 4 0 - 1 [facility] RDW RBC Auto-Rto 14.4 % Normal 4 11 - 15 [facility] WBC # Bld Auto 7.2 x1000/uL Normal 4 4 - 11 [facility] Lymphocytes # Bld Auto 1.74 x 1000/uL Normal 4 0.6 - 3.7 [facility] Hct VFr Bld Auto 29.2 % Below low normal 02 4 38.5 - 50 [facility] PMV Bld Auto 10.9 fL Normal 4 8 - 12 [facility] FIO2 (ARTERIAL BG [place] QUESTION) 40.0 % Normal 4 [facility] END TIDAL CO2/TCOM (ARTERIAL BG [place] QUESTION) 63.0 mmol/L Normal 4 [facility] VENT SETTINGS (ARTERIAL BG [place] QUESTION) Normal 4 [facility] SP02 (ARTERIAL BG [place] QUESTION) 98.0 % Normal 4 [facility] SaO2 % BldA 100.0 % Above high normal 4 94 - 98 [facility] ACTUAL RESPIRATORY RATE (ARTERIAL BG [place] QUESTION) 21.0 breaths/min Normal 4 [facility] OXYGEN MODE (ARTERIAL BG [place] QUESTION) Ventilator Normal 4 [facility] HCO3 std BldA-sCnc 28.7 mmol/L Above high normal 4 21 - 28 [facility] pO2 BldA 175.0 mmHg Above high normal 4 83 - 108 [facility] VENT MODE (ARTERIAL BG [place] QUESTION) CPAP Normal 4 [facility] pCO2 BldA 39.0 mmHg Normal 4 32 - 48 [facility] pH BldA 7.48 units Above high normal 4 7.35 - 7.45 [facility] TEMPERATURE (ARTERIAL BG [place] QUESTION) 98.9 Fahrenheit Normal 4 [facility] Base excess std BldA Calc-sCnc 5.0 mmol/L Above high normal 4 - [facility] RH TYPE POS Normal 4 [facility] ABO GROUPING O Normal 4 [facility] ANTIBODY SCREEN NEG Normal 12/30/19 2 4 [facility] SPECIMEN EXPIRATION DATE AND TIME 2024 23:59 Normal 4 [facility] Imm Granulocytes/leuk NFr Bld Auto 0.3 % Normal 4 0 - 1 [facility] Lymphocytes/leuk NFr Bld Auto 30.5 % Normal 4 17 - 50 [facility] Eosinophil/leuk NFr Bld Auto 1.0 % Normal 4 0 - 5 [facility] Neutrophils # Bld Auto 5.01 x 1000/uL Normal 4 2 - 7.6 [facility] Eosinophil # Bld Auto 0.09 x 1000/uL Normal 4 0 - 1 [facility] Hgb Bld-mCnc 10.1 g/dL Below low normal 4 13.2 - 17.1 [facility] Lymphocytes # Bld Auto 2.84 x 1000/uL Normal 4 0.6 - 3.7 [facility] MCHC RBC Auto-mCnc 30.6 g/dL Below low normal 12/29 4 31 - 36 [facility] Monocytes/leuk NFr Bld Auto 14.0 % Above high normal 4 4 - 12 [facility] Monocytes # Bld Auto 1.3 x 1000/uL Above high normal 0 4 0 - 1 [facility] nRBC # Bld Auto 0.0 x 1000/uL Normal 4 0 - 1 [facility] Imm Granulocytes # Bld Auto 0.03 x 1000/uL Normal 4 0 - 0.3 [facility] Neutrophils/leuk NFr Bld Auto 53.9 % Normal 4 39 - 72 [facility] MCH RBC Qn Auto 27.8 pg Normal 4 27 - 33 [facility] RBC # Bld Auto 3.63 M/uL Below low normal 4 4 - 6 [facility] RDW RBC Auto-Rto 14.4 % Normal 4 11 - 15 [facility] nRBC/100 WBC Bld Auto-Rto 0.0 % Normal 4 0 - 1 [facility] Hct VFr Bld Auto 33.0 % Below low normal 02 4 38.5 - 50 [facility] MCV RBC Auto 90.9 fL Normal 4 80 - 100 [facility] Platelet # Bld Auto 560.0 x1000/uL Above high normal 0 4 150 - 420 [facility] Basophils # Bld Auto 0.03 x 1000/uL Normal 12/29 4 0 - 1 [facility] WBC # Bld Auto 9.3 x1000/uL Normal 4 4 - 11 [facility] PMV Bld Auto 10.9 fL Normal 4 8 - 12 [facility] Basophils/leuk NFr Bld Auto 0.3 % Normal 4 0 - 1.4 [facility] Magnesium SerPl-mCnc 2.0 mg/dL Normal 02 4 1.7 - 2.4 [facility] Glucose SerPl-mCnc 116.0 mg/dL Above high normal / 4 70 - 100 [facility] Sodium SerPl-sCnc 145.0 mmol/L Above high normal 12/29 4 136 - 144 [facility] GFR/BSA.pred SerPlBld DOD-OKM-FiYIuc >60.0 mL/min/1.73m2 Normal 4 - [facility] Creat SerPl-mCnc 0.54 mg/dL Normal 4 0.4 - 1.3 [facility] BUN SerPl-mCnc 15.0 mg/dL Normal 4 6 - 20 [facility] Chloride SerPl-sCnc 105.0 mmol/L Normal 12/30/19 2 4 98 - 107 [facility] Anion Gap3 SerPl-sCnc 11.0 Normal 4 7 - 17 [facility] Calcium SerPl-mCnc 9.5 mg/dL Normal 4 8.8 - 10.2 [facility] BUN/Creat SerPl 27.8 Above high normal 02 4 8 - 23 [facility] Potassium SerPl-sCnc 4.5 mmol/L Normal 02 4 3.3 - 5.3 [facility] HCO3 SerPl-sCnc 29.0 mmol/L Normal 4 20 - 30 [facility] Phosphate SerPl-mCnc 5.0 mg/dL Above high normal 4 2.2 - 4.5 [facility] Glucose SerPl-mCnc 154.0 mg/dL Above high normal 4 70 - 100 [facility] BUN/Creat SerPl 27.3 Above high normal 02 4 8 - 23 [facility] GFR/BSA.pred SerPlBld ASV-[id number]-MfBCqp >60.0 mL/min/1.73m2 Normal 4 - [facility] Sodium SerPl-sCnc 142.0 mmol/L Normal 4 136 - 144 [facility] Creat SerPl-mCnc 0.55 mg/dL Normal 4 0.4 - 1.3 [facility] Chloride SerPl-sCnc 107.0 mmol/L Normal 12/28/19 2 4 98 - 107 [facility] Potassium SerPl-sCnc 4.4 mmol/L Normal 02 4 3.3 - 5.3 [facility] BUN SerPl-mCnc 15.0 mg/dL Normal 4 6 - 20 [facility] Anion Gap3 SerPl-sCnc 8.0 Normal 4 7 - 17 [facility] Calcium SerPl-mCnc 8.9 mg/dL Normal 4 8.8 - 10.2 [facility] HCO3 SerPl-sCnc 27.0 mmol/L Normal 4 20 - 30 [facility] Phosphate SerPl-mCnc 4.1 mg/dL Normal 02 4 2.2 - 4.5 [facility] Magnesium SerPl-mCnc 1.8 mg/dL Normal 02 4 1.7 - 2.4 [facility] Neutrophils # Bld Auto 4.28 x 1000/uL Normal 4 2 - 7.6 [facility] Hct VFr Bld Auto 27.1 % Below low normal 02 4 38.5 - 50 [facility] PMV Bld Auto 11.3 fL Normal 4 8 - 12 [facility] Lymphocytes # Bld Auto 1.28 x 1000/uL Normal 4 0.6 - 3.7 [facility] Neutrophils/leuk NFr Bld Auto 66.7 % Normal 4 39 - 72 [facility] Hgb Bld-mCnc 8.1 g/dL Below low normal 4 13.2 - 17.1 [facility] Eosinophil # Bld Auto 0.08 x 1000/uL Normal 4 0 - 1 [facility] MCV RBC Auto 92.2 fL Normal 4 80 - 100 [facility] RBC # Bld Auto 2.94 M/uL Below low normal 4 4 - 6 [facility] Monocytes/leuk NFr Bld Auto 11.7 % Normal 4 4 - 12 [facility] Basophils # Bld Auto 0.02 x 1000/uL Normal 12/27 4 0 - 1 [facility] Lymphocytes/leuk NFr Bld Auto 19.9 % Normal 4 17 - 50 [facility] MCHC RBC Auto-mCnc 29.9 g/dL Below low normal 12/27 4 31 - 36 [facility] MCH RBC Qn Auto 27.6 pg Normal 4 27 - 33 [facility] nRBC # Bld Auto 0.0 x 1000/uL Normal 4 0 - 1 [facility] Monocytes # Bld Auto 0.75 x 1000/uL Normal 12/27 4 0 - 1 [facility] Eosinophil/leuk NFr Bld Auto 1.2 % Normal 4 0 - 5 [facility] Imm Granulocytes/leuk NFr Bld Auto 0.2 % Normal 4 0 - 1 [facility] nRBC/100 WBC Bld Auto-Rto 0.0 % Normal 4 0 - 1 [facility] Imm Granulocytes # Bld Auto 0.01 x 1000/uL Normal 4 0 - 0.3 [facility] Platelet # Bld Auto 424.0 x1000/uL Above high normal 0 4 150 - 420 [facility] WBC # Bld Auto 6.4 x1000/uL Normal 4 4 - 11 [facility] RDW RBC Auto-Rto 14.8 % Normal 4 11 - 15 [facility] Basophils/leuk NFr Bld Auto 0.3 % Normal 4 0 - 1.4 [facility] ANTIBODY SCREEN NEG Normal 12/27/19 2 4 [facility] ABO GROUPING O Normal 4 [facility] RH TYPE POS Normal 4 [facility] SPECIMEN EXPIRATION DATE AND TIME 12/30/2023 23:59 Normal 4 [facility] Valproate SerPl-mCnc 51.6 ug/mL Normal 02 4 50 - 100 [facility] Creat SerPl-mCnc 0.54 mg/dL Normal 4 0.4 - 1.3 [facility] Glucose SerPl-mCnc 174.0 mg/dL Above high normal 11/27 4 70 - 100 [facility] Potassium SerPl-sCnc 4.0 mmol/L Normal 02 4 3.3 - 5.3 [facility] HCO3 SerPl-sCnc 25.0 mmol/L Normal 4 20 - 30 [facility] BUN/Creat SerPl 25.9 Above high normal 02 4 8 - 23 [facility] GFR/BSA.pred SerPlBld BEV-VIH-CmUEom >60.0 mL/min/1.73m2 Normal 4 - [facility] Chloride SerPl-sCnc 105.0 mmol/L Normal 12/26/19 2 4 98 - 107 [facility] BUN SerPl-mCnc 14.0 mg/dL Normal 4 6 - 20 [facility] Anion Gap3 SerPl-sCnc 13.0 Normal 4 7 - 17 [facility] Sodium SerPl-sCnc 143.0 mmol/L Normal 4 136 - 144 [facility] Calcium SerPl-mCnc 9.3 mg/dL Normal 4 8.8 - 10.2 [facility] Magnesium SerPl-mCnc 1.8 mg/dL Normal 02 4 1.7 - 2.4 [facility] Phosphate SerPl-mCnc 4.1 mg/dL Normal 02 4 2.2 - 4.5 [facility] Hgb Bld-mCnc 8.8 g/dL Below low normal 4 13.2 - 17.1 [facility] Monocytes/leuk NFr Bld Auto 13.3 % Above high normal 4 4 - 12 [facility] Neutrophils/leuk NFr Bld Auto 58.0 % Normal 4 39 - 72 [facility] PMV Bld Auto 11.2 fL Normal 4 8 - 12 [facility] Hct VFr Bld Auto 27.2 % Below low normal 02 4 38.5 - 50 [facility] Platelet # Bld Auto 402.0 x1000/uL Normal 4 150 - 420 [facility] Basophils/leuk NFr Bld Auto 0.3 % Normal 4 0 - 1.4 [facility] Imm Granulocytes # Bld Auto 0.03 x 1000/uL Normal 4 0 - 0.3 [facility] WBC # Bld Auto 6.2 x1000/uL Normal 4 4 - 11 [facility] Imm Granulocytes/leuk NFr Bld Auto 0.5 % Normal 4 0 - 1 [facility] Lymphocytes # Bld Auto 1.59 x 1000/uL Normal 4 0.6 - 3.7 [facility] Eosinophil # Bld Auto 0.12 x 1000/uL Normal 11/27 4 0 - 1 [facility] MCH RBC Qn Auto 29.2 pg Normal 4 27 - 33 [facility] MCHC RBC Auto-mCnc 32.4 g/dL Normal 4 31 - 36 [facility] nRBC # Bld Auto 0.0 x 1000/uL Normal 4 0 - 1 [facility] RDW RBC Auto-Rto 14.9 % Normal 4 11 - 15 [facility] Eosinophil/leuk NFr Bld Auto 2.0 % Normal 4 0 - 5 [facility] Monocytes # Bld Auto 0.82 x 1000/uL Normal 12/25 4 0 - 1 [facility] MCV RBC Auto 90.4 fL Normal 4 80 - 100 [facility] Lymphocytes/leuk NFr Bld Auto 25.9 % Normal 4 17 - 50 [facility] Basophils # Bld Auto 0.02 x 1000/uL Normal 12/25 4 0 - 1 [facility] Neutrophils # Bld Auto 3.57 x 1000/uL Normal 4 2 - 7.6 [facility] nRBC/100 WBC Bld Auto-Rto 0.0 % Normal 4 0 - 1 [facility] RBC # Bld Auto 3.01 M/uL Below low normal 4 4 - 6 [facility] ANTIBODY SCREEN NEG Normal 12/24/19 2 4 [facility] ABO GROUPING O Normal 4 [facility] RH TYPE POS Normal 4 [facility] SPECIMEN EXPIRATION DATE AND TIME 12/27/2023 23:59 Normal 4 [facility] Anion Gap3 SerPl-sCnc 11.0 Normal 4 7 - 17 [facility] Calcium SerPl-mCnc 8.9 mg/dL Normal 4 8.8 - 10.2 [facility] Potassium SerPl-sCnc 4.1 mmol/L Normal 02 4 3.3 - 5.3 [facility] BUN/Creat SerPl 30.2 Above high normal 02 4 8 - 23 [facility] Creat SerPl-mCnc 0.53 mg/dL Normal 4 0.4 - 1.3 [facility] Glucose SerPl-mCnc 123.0 mg/dL Above high normal 11/26 4 70 - 100 [facility] BUN SerPl-mCnc 16.0 mg/dL Normal 4 6 - 20 [facility] HCO3 SerPl-sCnc 27.0 mmol/L Normal 4 20 - 30 [facility] GFR/BSA.pred SerPlBld OFJ-VXH-VhBBkh >60.0 mL/min/1.73m2 Normal 4 - [facility] Sodium SerPl-sCnc 141.0 mmol/L Normal 4 136 - 144 [facility] Chloride SerPl-sCnc 103.0 mmol/L Normal 07/29/20 2 4 98 - 107 [facility] CRP SerPl HS-mCnc 11.9 mg/L Above high normal 12/23 4 - [facility] Magnesium SerPl-mCnc 1.8 mg/dL Normal 02 4 1.7 - 2.4 [facility] Phosphate SerPl-mCnc 4.2 mg/dL Normal 02 4 2.2 - 4.5 [facility] Prealb SerPl Neph-mCnc 18.2 mg/dL Below low normal 4 20 - 40 [facility] Neutrophils/leuk NFr Bld Auto 53.7 % Normal 4 39 - 72 [facility] Imm Granulocytes # Bld Auto 0.03 x 1000/uL Normal 4 0 - 0.3 [facility] PMV Bld Auto 11.1 fL Normal 4 8 - 12 [facility] Eosinophil/leuk NFr Bld Auto 2.7 % Normal 4 0 - 5 [facility] Basophils/leuk NFr Bld Auto 0.6 % Normal 4 0 - 1.4 [facility] RBC # Bld Auto 3.04 M/uL Below low normal 4 4 - 6 [facility] MCH RBC Qn Auto 28.3 pg Normal 4 27 - 33 [facility] Platelet # Bld Auto 407.0 x1000/uL Normal 4 150 - 420 [facility] Imm Granulocytes/leuk NFr Bld Auto 0.6 % Normal 4 0 - 1 [facility] Lymphocytes # Bld Auto 1.49 x 1000/uL Normal 4 0.6 - 3.7 [facility] nRBC # Bld Auto 0.0 x 1000/uL Normal 4 0 - 1 [facility] MCV RBC Auto 91.4 fL Normal 4 80 - 100 [facility] Basophils # Bld Auto 0.03 x 1000/uL Normal 12/23 4 0 - 1 [facility] Neutrophils # Bld Auto 2.75 x 1000/uL Normal 4 2 - 7.6 [facility] Eosinophil # Bld Auto 0.14 x 1000/uL Normal 11/26 4 0 - 1 [facility] Monocytes/leuk NFr Bld Auto 13.3 % Above high normal 4 4 - 12 [facility] Hct VFr Bld Auto 27.8 % Below low normal 02 4 38.5 - 50 [facility] Monocytes # Bld Auto 0.68 x 1000/uL Normal 12/23 4 0 - 1 [facility] RDW RBC Auto-Rto 15.3 % Above high normal 4 11 - 15 [facility] Lymphocytes/leuk NFr Bld Auto 29.1 % Normal 4 17 - 50 [facility] MCHC RBC Auto-mCnc 30.9 g/dL Below low normal 12/23 4 31 - 36 [facility] WBC # Bld Auto 5.1 x1000/uL Normal 4 4 - 11 [facility] Hgb Bld-mCnc 8.6 g/dL Below low normal 4 13.2 - 17.1 [facility] nRBC/100 WBC Bld Auto-Rto 0.0 % Normal 4 0 - 1 [facility] Phosphate SerPl-mCnc 3.1 mg/dL Normal 02 4 2.2 - 4.5 [facility] Magnesium SerPl-mCnc 1.9 mg/dL Normal 02 4 1.7 - 2.4 [facility] Chloride SerPl-sCnc 101.0 mmol/L Normal 12/22/19 2 4 98 - 107 [facility] Potassium SerPl-sCnc 3.6 mmol/L Normal 02 4 3.3 - 5.3 [facility] Sodium SerPl-sCnc 138.0 mmol/L Normal 4 136 - 144 [facility] Creat SerPl-mCnc 0.56 mg/dL Normal 4 0.4 - 1.3 [facility] BUN/Creat SerPl 33.9 Above high normal 02 4 8 - 23 [facility] HCO3 SerPl-sCnc 27.0 mmol/L Normal 4 20 - 30 [facility] Glucose SerPl-mCnc 104.0 mg/dL Above high normal 11/26 4 70 - 100 [facility] Anion Gap3 SerPl-sCnc 10.0 Normal 4 7 - 17 [facility] Calcium SerPl-mCnc 9.3 mg/dL Normal 4 8.8 - 10.2 [facility] GFR/BSA.pred SerPlBld WCG-PQZ-HuXLhh >60.0 mL/min/1.73m2 Normal 4 - [facility] BUN SerPl-mCnc 19.0 mg/dL Normal 4 6 - 20 [facility] RDW RBC Auto-Rto 15.6 % Above high normal 4 11 - 15 [facility] Imm Granulocytes # Bld Auto 0.03 x 1000/uL Normal 4 0 - 0.3 [facility] Basophils/leuk NFr Bld Auto 0.3 % Normal 4 0 - 1.4 [facility] Monocytes/leuk NFr Bld Auto 9.6 % Normal 4 4 - 12 [facility] Monocytes # Bld Auto 0.62 x 1000/uL Normal 12/21 4 0 - 1 [facility] Neutrophils # Bld Auto 3.79 x 1000/uL Normal 4 2 - 7.6 [facility] Imm Granulocytes/leuk NFr Bld Auto 0.5 % Normal 4 0 - 1 [facility] Platelet # Bld Auto 424.0 x1000/uL Above high normal 0 4 150 - 420 [facility] Eosinophil # Bld Auto 0.13 x 1000/uL Normal 11/26 4 0 - 1 [facility] Lymphocytes # Bld Auto 1.86 x 1000/uL Normal 4 0.6 - 3.7 [facility] Hct VFr Bld Auto 27.1 % Below low normal 02 4 38.5 - 50 [facility] MCHC RBC Auto-mCnc 31.0 g/dL Normal 4 31 - 36 [facility] MCV RBC Auto 89.4 fL Normal 4 80 - 100 [facility] MCH RBC Qn Auto 27.7 pg Normal 4 27 - 33 [facility] RBC # Bld Auto 3.03 M/uL Below low normal 4 4 - 6 [facility] Hgb Bld-mCnc 8.4 g/dL Below low normal 4 13.2 - 17.1 [facility] WBC # Bld Auto 6.5 x1000/uL Normal 4 4 - 11 [facility] PMV Bld Auto 11.3 fL Normal 4 8 - 12 [facility] nRBC/100 WBC Bld Auto-Rto 0.0 % Normal 4 0 - 1 [facility] Eosinophil/leuk NFr Bld Auto 2.0 % Normal 4 0 - 5 [facility] nRBC # Bld Auto 0.0 x 1000/uL Normal 4 0 - 1 [facility] Basophils # Bld Auto 0.02 x 1000/uL Normal 12/21 4 0 - 1 [facility] Lymphocytes/leuk NFr Bld Auto 28.8 % Normal 4 17 - 50 [facility] Neutrophils/leuk NFr Bld Auto 58.8 % Normal 4 39 - 72 [facility] ABO GROUPING O Normal 4 [facility] ANTIBODY SCREEN NEG Normal 12/21/19 2 4 [facility] RH TYPE POS Normal 4 [facility] SPECIMEN EXPIRATION DATE AND TIME 12/23/2023 23:59 Normal 4 [facility] Neutrophils # Bld Auto 3.25 x 1000/uL Normal 4 2 - 7.6 [facility] Eosinophil/leuk NFr Bld Auto 1.6 % Normal 4 0 - 5 [facility] MCHC RBC Auto-mCnc 31.7 g/dL Normal 4 31 - 36 [facility] nRBC # Bld Auto 0.0 x 1000/uL Normal 4 0 - 1 [facility] Monocytes/leuk NFr Bld Auto 8.2 % Normal 4 4 - 12 [facility] Platelet # Bld Auto 398.0 x1000/uL Normal 4 150 - 420 [facility] Neutrophils/leuk NFr Bld Auto 57.9 % Normal 4 39 - 72 [facility] Eosinophil # Bld Auto 0.09 x 1000/uL Normal 11/26 4 0 - 1 [facility] Lymphocytes # Bld Auto 1.77 x 1000/uL Normal 4 0.6 - 3.7 [facility] MCV RBC Auto 90.3 fL Normal 4 80 - 100 [facility] Basophils/leuk NFr Bld Auto 0.2 % Normal 4 0 - 1.4 [facility] Hct VFr Bld Auto 26.2 % Below low normal 02 4 38.5 - 50 [facility] nRBC/100 WBC Bld Auto-Rto 0.0 % Normal 4 0 - 1 [facility] Imm Granulocytes/leuk NFr Bld Auto 0.5 % Normal 4 0 - 1 [facility] WBC # Bld Auto 5.6 x1000/uL Normal 4 4 - 11 [facility] Monocytes # Bld Auto 0.46 x 1000/uL Normal 12/20 4 0 - 1 [facility] Hgb Bld-mCnc 8.3 g/dL Below low normal 4 13.2 - 17.1 [facility] RBC Qn Auto 28.6 pg Normal 4 27 - 33 [facility] PMV Bld Auto 11.3 fL Normal 4 8 - 12 [facility] RDW RBC Auto-Rto 15.1 % Above high normal 4 11 - 15 [facility] Lymphocytes/leuk NFr Bld Auto 31.6 % Normal 4 17 - 50 [facility] RBC # Bld Auto 2.9 M/uL Below low normal 4 4 - 6 [facility] Basophils # Bld Auto 0.01 x 1000/uL Normal 12/20 4 0 - 1 [facility] Imm Granulocytes # Bld Auto 0.03 x 1000/uL Normal 4 0 - 0.3 [facility] GFR/BSA.pred SerPlBld VCY-ZPV-DcBEkm >60.0 mL/min/1.73m2 Normal 4 - [facility] Creat SerPl-mCnc 0.56 mg/dL Normal 4 0.4 - 1.3 [facility] BUN/Creat SerPl 35.7 Above high normal 02 4 8 - 23 [facility] HCO3 SerPl-sCnc 27.0 mmol/L Normal 4 20 - 30 [facility] Anion Gap3 SerPl-sCnc 11.0 Normal 4 7 - 17 [facility] BUN SerPl-mCnc 20.0 mg/dL Normal 4 6 - 20 [facility] Chloride SerPl-sCnc 100.0 mmol/L Normal 12/21/19 2 4 98 - 107 [facility] Sodium SerPl-sCnc 138.0 mmol/L Normal 4 136 - 144 [facility] Potassium SerPl-sCnc 3.5 mmol/L Normal 02 4 3.3 - 5.3 [facility] Glucose SerPl-mCnc 149.0 mg/dL Above high normal 11/26 4 70 - 100 [facility] Calcium SerPl-mCnc 9.3 mg/dL Normal 4 8.8 - 10.2 [facility] Magnesium SerPl-mCnc 2.0 mg/dL Normal 02 4 1.7 - 2.4 [facility] Phosphate SerPl-mCnc 3.5 mg/dL Normal 02 4 2.2 - 4.5 [facility] BUN SerPl-mCnc 19.0 mg/dL Normal 4 6 - 20 [facility] Creat SerPl-mCnc 0.54 mg/dL Normal 4 0.4 - 1.3 [facility] HCO3 SerPl-sCnc 30.0 mmol/L Normal 4 20 - 30 [facility] Sodium SerPl-sCnc 138.0 mmol/L Normal 4 136 - 144 [facility] Anion Gap3 SerPl-sCnc 8.0 Normal 4 7 - 17 [facility] Potassium SerPl-sCnc 3.8 mmol/L Normal 02 4 3.3 - 5.3 [facility] BUN/Creat SerPl 35.2 Above high normal 02 4 8 - 23 [facility] Calcium SerPl-mCnc 9.2 mg/dL Normal 4 8.8 - 10.2 [facility] Chloride SerPl-sCnc 100.0 mmol/L Normal 12/20/19 2 4 98 - 107 [facility] GFR/BSA.pred SerPlBld VQW-ADE-DiCYap >60.0 mL/min/1.73m2 Normal 4 - [facility] Glucose SerPl-mCnc 128.0 mg/dL Above high normal 11/26 4 70 - 100 [facility] Phosphate SerPl-mCnc 3.5 mg/dL Normal 02 4 2.2 - 4.5 [facility] Magnesium SerPl-mCnc 1.9 mg/dL Normal 02 4 1.7 - 2.4 [facility] Basophils/leuk NFr Bld Auto 0.4 % Normal 4 0 - 1.4 [facility] nRBC # Bld Auto 0.0 x 1000/uL Normal 4 0 - 1 [facility] Eosinophil # Bld Auto 0.18 x 1000/uL Normal 11/26 4 0 - 1 [facility] Neutrophils # Bld Auto 2.92 x 1000/uL Normal 4 2 - 7.6 [facility] Monocytes # Bld Auto 0.44 x 1000/uL Normal 12/19 4 0 - 1 [facility] Platelet # Bld Auto 418.0 x1000/uL Normal 4 150 - 420 [facility] RDW RBC Auto-Rto 15.1 % Above high normal 4 11 - 15 [facility] PMV Bld Auto 10.9 fL Normal 4 8 - 12 [facility] WBC # Bld Auto 5.5 x1000/uL Normal 4 4 - 11 [facility] RBC # Bld Auto 2.91 M/uL Below low normal 4 4 - 6 [facility] Hct VFr Bld Auto 26.6 % Below low normal 02 4 38.5 - 50 [facility] Imm Granulocytes # Bld Auto 0.03 x 1000/uL Normal 4 0 - 0.3 [facility] Monocytes/leuk NFr Bld Auto 8.1 % Normal 4 4 - 12 [facility] Basophils # Bld Auto 0.02 x 1000/uL Normal 12/19 4 0 - 1 [facility] Imm Granulocytes/leuk NFr Bld Auto 0.5 % Normal 4 0 - 1 [facility] nRBC/100 WBC Bld Auto-Rto 0.0 % Normal 4 0 - 1 [facility] MCHC RBC Auto-mCnc 32.7 g/dL Normal 4 31 - 36 [facility] Hgb Bld-mCnc 8.7 g/dL Below low normal 4 13.2 - 17.1 [facility] Lymphocytes # Bld Auto 1.87 x 1000/uL Normal 4 0.6 - 3.7 [facility] Lymphocytes/leuk NFr Bld Auto 34.2 % Normal 4 17 - 50 [facility] M[facility] RBC Qn Auto 29.9 pg Normal 4 27 - 33 [facility] Neutrophils/leuk NFr Bld Auto 53.5 % Normal 4 39 - 72 [facility] Eosinophil/leuk NFr Bld Auto 3.3 % Normal 4 0 - 5 [facility] MCV RBC Auto 91.4 fL Normal 4 80 - 100 [facility] Phosphate SerPl-mCnc 4.8 mg/dL Above high normal 4 2.2 - 4.5 [facility] Sodium SerPl-sCnc 140.0 mmol/L Normal 4 136 - 144 [facility] Anion Gap3 SerPl-sCnc 11.0 Normal 4 7 - 17 [facility] Creat SerPl-mCnc 0.54 mg/dL Normal 4 0.4 - 1.3 [facility] HCO3 SerPl-sCnc 29.0 mmol/L Normal 4 20 - 30 [facility] Chloride SerPl-sCnc 100.0 mmol/L Normal 12/19/19 2 4 98 - 107 [facility] BUN/Creat SerPl 38.9 Above high normal 02 4 8 - 23 [facility] GFR/BSA.pred SerPlBld [id number] >60.0 mL/min/1.73m2 Normal 4 - [facility] Potassium SerPl-sCnc 3.5 mmol/L Normal 02 4 3.3 - 5.3 [facility] Calcium SerPl-mCnc 9.3 mg/dL Normal 4 8.8 - 10.2 [facility] BUN SerPl-mCnc 21.0 mg/dL Above high normal 12/19/19 2 4 6 - 20 [facility] Glucose SerPl-mCnc 118.0 mg/dL Above high normal 11/26 4 70 - 100 [facility] Magnesium SerPl-mCnc 2.0 mg/dL Normal 02 4 1.7 - 2.4 [facility] WBC # Bld Auto 4.6 x1000/uL Normal 4 4 - 11 [facility] RDW RBC Auto-Rto 15.3 % Above high normal 4 11 - 15 [facility] Neutrophils # Bld Auto 2.29 x 1000/uL Normal 4 2 - 7.6 [facility] nRBC # Bld Auto 0.0 x 1000/uL Normal 4 0 - 1 [facility] RBC # Bld Auto 3.01 M/uL Below low normal 4 4 - 6 [facility] nRBC/100 WBC Bld Auto-Rto 0.0 % Normal 4 0 - 1 [facility] Lymphocytes/leuk NFr Bld Auto 37.0 % Normal 4 17 - 50 [facility] Hgb Bld-mCnc 8.5 g/dL Below low normal 4 13.2 - 17.1 [facility] PMV Bld Auto 11.1 fL Normal 4 8 - 12 [facility] Monocytes/leuk NFr Bld Auto 8.8 % Normal 4 4 - 12 [facility] Lymphocytes # Bld Auto 1.69 x 1000/uL Normal 4 0.6 - 3.7 [facility] Neutrophils/leuk NFr Bld Auto 50.0 % Normal 4 39 - 72 [facility] Hct VFr Bld Auto 27.7 % Below low normal 02 4 38.5 - 50 [facility] Basophils # Bld Auto 0.01 x 1000/uL Normal 12/18 4 0 - 1 [facility] Imm Granulocytes # Bld Auto 0.03 x 1000/uL Normal 4 0 - 0.3 [facility] Eosinophil/leuk NFr Bld Auto 3.3 % Normal 4 0 - 5 [facility] MCHC RBC Auto-mCnc 30.7 g/dL Below low normal 12/18 4 31 - 36 [facility] Monocytes # Bld Auto 0.4 x 1000/uL Normal 4 0 - 1 [facility] Basophils/leuk NFr Bld Auto 0.2 % Normal 4 0 - 1.4 [facility] Eosinophil # Bld Auto 0.15 x 1000/uL Normal 11/26 4 0 - 1 [facility] Imm Granulocytes/leuk NFr Bld Auto 0.7 % Normal 4 0 - 1 [facility] MCH RBC Qn Auto 28.2 pg Normal 4 27 - 33 [facility] Platelet # Bld Auto 422.0 x1000/uL Above high normal 0 4 150 - 420 [facility] MCV RBC Auto 92.0 fL Normal 4 80 - 100 [facility] Phosphate SerPl-mCnc 3.3 mg/dL Normal 02 4 2.2 - 4.5 [facility] Magnesium SerPl-mCnc 2.0 mg/dL Normal 02 4 1.7 - 2.4 [facility] Basophils/leuk NFr Bld Auto 0.3 % Normal 4 0 - 1.4 [facility] WBC # Bld Auto 6.4 x1000/uL Normal 4 4 - 11 [facility] MCHC RBC Auto-mCnc 31.1 g/dL Normal 4 31 - 36 [facility] Neutrophils/leuk NFr Bld Auto 55.1 % Normal 4 39 - 72 [facility] nRBC/100 WBC Bld Auto-Rto 0.0 % Normal 4 0 - 1 [facility] PMV Bld Auto 10.9 fL Normal 4 8 - 12 [facility] MCV RBC Auto 90.3 fL Normal 4 80 - 100 [facility] Imm Granulocytes/leuk NFr Bld Auto 0.6 % Normal 4 0 - 1 [facility] MCH RBC Qn Auto 28.1 pg Normal 4 27 - 33 [facility] Eosinophil # Bld Auto 0.2 x 1000/uL Normal 12/17 4 0 - 1 [facility] Neutrophils # Bld Auto 3.49 x 1000/uL Normal 4 2 - 7.6 [facility] nRBC # Bld Auto 0.0 x 1000/uL Normal 4 0 - 1 [facility] Hct VFr Bld Auto 28.0 % Below low normal 02 4 38.5 - 50 [facility] RDW RBC Auto-Rto 15.3 % Above high normal 4 11 - 15 [facility] Lymphocytes # Bld Auto 2.11 x 1000/uL Normal 4 0.6 - 3.7 [facility] Hgb Bld-mCnc 8.7 g/dL Below low normal 4 13.2 - 17.1 [facility] Platelet # Bld Auto 429.0 x1000/uL Above high normal 0 4 150 - 420 [facility] Basophils # Bld Auto 0.02 x 1000/uL Normal 12/17 4 0 - 1 [facility] Monocytes # Bld Auto 0.49 x 1000/uL Normal 12/17 4 0 - 1 [facility] Monocytes/leuk NFr Bld Auto 7.7 % Normal 4 4 - 12 [facility] Lymphocytes/leuk NFr Bld Auto 33.2 % Normal 4 17 - 50 [facility] Eosinophil/leuk NFr Bld Auto 3.1 % Normal 4 0 - 5 [facility] Imm Granulocytes # Bld Auto 0.04 x 1000/uL Normal 4 0 - 0.3 [facility] RBC # Bld Auto 3.1 M/uL Below low normal 4 4 - 6 [facility] RH TYPE POS Normal 4 [facility] SPECIMEN EXPIRATION DATE AND TIME 12/20/2023 23:59 Normal 4 [facility] ANTIBODY SCREEN NEG Normal 12/18/19 2 4 [facility] ABO GROUPING O Normal 4 [facility] Phosphate SerPl-mCnc 5.1 mg/dL Above high normal 4 2.2 - 4.5 [facility] Magnesium SerPl-mCnc 2.0 mg/dL Normal 02 4 1.7 - 2.4 [facility] Anion Gap3 SerPl-sCnc 10.0 Normal 4 7 - 17 [facility] Creat SerPl-mCnc 0.53 mg/dL Normal 4 0.4 - 1.3 [facility] HCO3 SerPl-sCnc 27.0 mmol/L Normal 4 20 - 30 [facility] Chloride SerPl-sCnc 100.0 mmol/L Normal 12/17/19 2 4 98 - 107 [facility] BUN SerPl-mCnc 20.0 mg/dL Normal 4 6 - 20 [facility] Calcium SerPl-mCnc 9.2 mg/dL Normal 4 8.8 - 10.2 [facility] BUN/Creat SerPl 37.7 Above high normal 02 4 8 - 23 [facility] GFR/BSA.pred SerPlBld CFE-YLB-QeQCpd >60.0 mL/min/1.73m2 Normal 4 - [facility] Sodium SerPl-sCnc 137.0 mmol/L Normal 4 136 - 144 [facility] Potassium SerPl-sCnc 4.1 mmol/L Normal 02 4 3.3 - 5.3 [facility] Glucose SerPl-mCnc 138.0 mg/dL Above high normal 11/26 4 70 - 100 [facility] Lymphocytes/leuk NFr Bld Auto 27.5 % Normal 4 17 - 50 [facility] Neutrophils # Bld Auto 3.52 x 1000/uL Normal 4 2 - 7.6 [facility] MCHC RBC Auto-mCnc 30.6 g/dL Below low normal 12/16 4 31 - 36 [facility] Lymphocytes # Bld Auto 1.67 x 1000/uL Normal 4 0.6 - 3.7 [facility] Imm Granulocytes/leuk NFr Bld Auto 0.5 % Normal 4 0 - 1 [facility] RDW RBC Auto-Rto 15.3 % Above high normal 4 11 - 15 [facility] WBC # Bld Auto 6.1 x1000/uL Normal 4 4 - 11 [facility] Hct VFr Bld Auto 25.5 % Below low normal 02 4 38.5 - 50 [facility] Eosinophil/leuk NFr Bld Auto 5.1 % Above high normal 4 0 - 5 [facility] Imm Granulocytes # Bld Auto 0.03 x 1000/uL Normal 4 0 - 0.3 [facility] PMV Bld Auto 11.0 fL Normal 4 8 - 12 [facility] Basophils/leuk NFr Bld Auto 0.3 % Normal 4 0 - 1.4 [facility] nRBC # Bld Auto 0.0 x 1000/uL Normal 4 0 - 1 [facility] RBC # Bld Auto 2.78 M/uL Below low normal 4 4 - 6 [facility] Neutrophils/leuk NFr Bld Auto 57.9 % Normal 4 39 - 72 [facility] Eosinophil # Bld Auto 0.31 x 1000/uL Normal 11/26 4 0 - 1 [facility] Platelet # Bld Auto 413.0 x1000/uL Normal 4 150 - 420 [facility] Basophils # Bld Auto 0.02 x 1000/uL Normal 12/16 4 0 - 1 [facility] Monocytes # Bld Auto 0.53 x 1000/uL Normal 12/16 4 0 - 1 [facility] Hgb Bld-mCnc 7.8 g/dL Below low normal 4 13.2 - 17.1 [facility] Monocytes/leuk NFr Bld Auto 8.7 % Normal 4 4 - 12 [facility] MCV RBC Auto 91.7 fL Normal 4 80 - 100 [facility] MCH RBC Qn Auto 28.1 pg Normal 4 27 - 33 [facility] nRBC/100 WBC Bld Auto-Rto 0.0 % Normal 4 0 - 1 [facility] Valproate SerPl-mCnc 37.9 ug/mL Below low normal 4 50 - 100 [facility] HCO3 SerPl-sCnc 24.0 mmol/L Normal 4 20 - 30 [facility] GFR/BSA.pred SerPlBld RTW-ROW-[id number] >60.0 mL/min/1.73m2 Normal 4 - [facility] Calcium SerPl-mCnc 9.4 mg/dL Normal 4 8.8 - 10.2 [facility] Glucose SerPl-mCnc 130.0 mg/dL Above high normal 11/26 4 70 - 100 [facility] BUN SerPl-mCnc 19.0 mg/dL Normal 4 6 - 20 [facility] BUN/Creat SerPl 32.2 Above high normal 02 4 8 - 23 [facility] Chloride SerPl-sCnc 103.0 mmol/L Normal 12/16/19 2 4 98 - 107 [facility] Anion Gap3 SerPl-sCnc 11.0 Normal 4 7 - 17 [facility] Sodium SerPl-sCnc 138.0 mmol/L Normal 4 136 - 144 [facility] Potassium SerPl-sCnc 3.4 mmol/L Normal 02 4 3.3 - 5.3 [facility] Creat SerPl-mCnc 0.59 mg/dL Normal 4 0.4 - 1.3 [facility] Prealb SerPl Neph-mCnc 19.6 mg/dL Below low normal 4 20 - 40 [facility] CRP SerPl HS-mCnc 3.2 mg/L Above high normal 12/15 4 - [facility] Magnesium SerPl-mCnc 1.5 mg/dL Below low normal 4 1.7 - 2.4 [facility] BUN SerPl-mCnc 15.0 mg/dL Normal 4 6 - 20 [facility] Glucose SerPl-mCnc 109.0 mg/dL Above high normal 11/26 4 70 - 100 [facility] Chloride SerPl-sCnc 114.0 mmol/L Above high normal 4 98 - 107 [facility] Calcium SerPl-mCnc 7.3 mg/dL Below low normal 12/15 4 8.8 - 10.2 [facility] Sodium SerPl-sCnc 144.0 mmol/L Normal 4 136 - 144 [facility] BUN/Creat SerPl 33.3 Above high normal 02 4 8 - 23 [facility] Anion Gap3 SerPl-sCnc 10.0 Normal 4 7 - 17 [facility] Creat SerPl-mCnc 0.45 mg/dL Normal 4 0.4 - 1.3 [facility] HCO3 SerPl-sCnc 20.0 mmol/L Normal 4 20 - 30 [facility] Potassium SerPl-sCnc 2.8 mmol/L Below low normal 4 3.3 - 5.3 [facility] GFR/BSA.pred SerPlBld FMX-XPW-QjQKzl >60.0 mL/min/1.73m2 Normal 4 - [facility] Phosphate SerPl-mCnc 2.5 mg/dL Normal 02 4 2.2 - 4.5 [facility] Imm Granulocytes/leuk NFr Bld Auto 0.3 % Normal 4 0 - 1 [facility] Lymphocytes # Bld Auto 2.07 x 1000/uL Normal 4 0.6 - 3.7 [facility] Lymphocytes/leuk NFr Bld Auto 30.3 % Normal 4 17 - 50 [facility] RBC # Bld Auto 2.79 M/uL Below low normal 4 4 - 6 [facility] Eosinophil/leuk NFr Bld Auto 2.2 % Normal 4 0 - 5 [facility] WBC # Bld Auto 6.8 x1000/uL Normal 4 4 - 11 [facility] Hct VFr Bld Auto 24.9 % Below low normal 02 4 38.5 - 50 [facility] Neutrophils # Bld Auto 3.96 x 1000/uL Normal 4 2 - 7.6 [facility] MCH RBC Qn Auto 29.4 pg Normal 4 27 - 33 [facility] Neutrophils/leuk NFr Bld Auto 58.0 % Normal 4 39 - 72 [facility] Monocytes # Bld Auto 0.61 x 1000/uL Normal 12/15 4 0 - 1 [facility] nRBC # Bld Auto 0.0 x 1000/uL Normal 4 0 - 1 [facility] RDW RBC Auto-Rto 15.4 % Above high normal 4 11 - 15 [facility] Hgb Bld-mCnc 8.2 g/dL Below low normal 4 13.2 - 17.1 [facility] Monocytes/leuk NFr Bld Auto 8.9 % Normal 4 4 - 12 [facility] Basophils/leuk NFr Bld Auto 0.3 % Normal 4 0 - 1.4 [facility] PMV Bld Auto 10.9 fL Normal 4 8 - 12 [facility] Imm Granulocytes # Bld Auto 0.02 x 1000/uL Normal 4 0 - 0.3 [facility] Eosinophil # Bld Auto 0.15 x 1000/uL Normal 11/26 4 0 - 1 [facility] Platelet # Bld Auto 440.0 x1000/uL Above high normal 0 4 150 - 420 [facility] nRBC/100 WBC Bld Auto-Rto 0.0 % Normal 4 0 - 1 [facility] Basophils # Bld Auto 0.02 x 1000/uL Normal 12/15 4 0 - 1 [facility] MCV RBC Auto 89.2 fL Normal 4 80 - 100 [facility] MCHC RBC Auto-mCnc 32.9 g/dL Normal 4 31 - 36 [facility] Color Ur Auto Yellow Normal 4 - [facility] Ketones Ur Strip.auto-mCnc 1+ Abnormal 4 - [facility] Prot Ur Strip.auto-mCnc Trace Normal 4 - [facility] Hgb Ur Ql Strip.auto Negative Normal 02 4 - [facility] Nitrite Ur Ql Strip.auto Negative Normal 4 - [facility] Clarity Ur Refract.auto Clear Normal 4 - [facility] Sp Gr Ur Refract.auto 1.029 Normal 4 1.005 - 1.03 [facility] Urobilinogen Ur Strip-mCnc 3.0 mg/dL Above high normal 4 - [facility] Bilirub Ur Ql Strip.auto Negative Normal 4 - [facility] WBC # Ur Strip Negative Normal 4 - [facility] pH Ur Strip.auto 7.0 Normal 4 5.5 - 7.5 [facility] Glucose Ur Strip.auto-mCnc Negative Normal 4 - [facility] Procalcitonin SerPl-mCnc 0.08 ng/mL Normal 4 - [facility] ANTIBODY SCREEN NEG Normal 12/15/19 2 4 [facility] RH TYPE POS Normal 4 [facility] SPECIMEN EXPIRATION DATE AND TIME 12/18/2023 23:59 Normal 4 [facility] ABO GROUPING O Normal 4 [facility] MCV RBC Auto 90.8 fL Normal 4 80 - 100 [facility] Basophils/leuk NFr Bld Auto 0.2 % Normal 4 0 - 1.4 [facility] Hgb Bld-mCnc 8.1 g/dL Below low normal 4 13.2 - 17.1 [facility] Lymphocytes # Bld Auto 1.57 x 1000/uL Normal 4 0.6 - 3.7 [facility] Monocytes # Bld Auto 0.53 x 1000/uL Normal 12/14 4 0 - 1 [facility] Imm Granulocytes/leuk NFr Bld Auto 0.5 % Normal 4 0 - 1 [facility] Hct VFr Bld Auto 25.7 % Below low normal 02 4 38.5 - 50 [facility] MCHC RBC Auto-mCnc 31.5 g/dL Normal 4 31 - 36 [facility] RDW RBC Auto-Rto 15.4 % Above high normal 4 11 - 15 [facility] RBC # Bld Auto 2.83 M/uL Below low normal 4 4 - 6 [facility] Eosinophil # Bld Auto 0.16 x 1000/uL Normal 11/26 4 0 - 1 [facility] PMV Bld Auto 11.3 fL Normal 4 8 - 12 [facility] Eosinophil/leuk NFr Bld Auto 2.9 % Normal 4 0 - 5 [facility] MCH RBC Qn Auto 28.6 pg Normal 4 27 - 33 [facility] Monocytes/leuk NFr Bld Auto 9.5 % Normal 4 4 - 12 [facility] Neutrophils # Bld Auto 3.25 x 1000/uL Normal 4 2 - 7.6 [facility] Neutrophils/leuk NFr Bld Auto 58.6 % Normal 4 39 - 72 [facility] Imm Granulocytes # Bld Auto 0.03 x 1000/uL Normal 4 0 - 0.3 [facility] Platelet # Bld Auto 452.0 x1000/uL Above high normal 0 4 150 - 420 [facility] nRBC # Bld Auto 0.0 x 1000/uL Normal 4 0 - 1 [facility] WBC # Bld Auto 5.6 x1000/uL Normal 4 4 - 11 [facility] Lymphocytes/leuk NFr Bld Auto 28.3 % Normal 4 17 - 50 [facility] Basophils # Bld Auto 0.01 x 1000/uL Normal 12/14 4 0 - 1 [facility] nRBC/100 WBC Bld Auto-Rto 0.0 % Normal 4 0 - 1 [facility] Magnesium SerPl-mCnc 1.9 mg/dL Normal 02 4 1.7 - 2.4 [facility] Sodium SerPl-sCnc 140.0 mmol/L Normal 4 136 - 144 [facility] Glucose SerPl-mCnc 153.0 mg/dL Above high normal 11/26 4 70 - 100 [facility] Potassium SerPl-sCnc 3.9 mmol/L Normal 02 4 3.3 - 5.3 [facility] Chloride SerPl-sCnc 103.0 mmol/L Normal 12/15/19 2 4 98 - 107 [facility] BUN/Creat SerPl 39.2 Above high normal 02 4 8 - 23 [facility] GFR/BSA.pred SerPlBld DTG-WTI-NtZSei >60.0 mL/min/1.73m2 Normal 4 - [facility] HCO3 SerPl-sCnc 28.0 mmol/L Normal 4 20 - 30 [facility] Calcium SerPl-mCnc 9.4 mg/dL Normal 4 8.8 - 10.2 [facility] Creat SerPl-mCnc 0.51 mg/dL Normal 4 0.4 - 1.3 [facility] BUN SerPl-mCnc 20.0 mg/dL Normal 4 6 - 20 [facility] Anion Gap3 SerPl-sCnc 9.0 Normal 4 7 - 17 [facility] Phosphate SerPl-mCnc 3.6 mg/dL Normal 02 4 2.2 - 4.5 [facility] Calcium SerPl-mCnc 9.1 mg/dL Normal 4 8.8 - 10.2 [facility] BUN SerPl-mCnc 23.0 mg/dL Above high normal 12/14/19 2 4 6 - 20 [facility] Anion Gap3 SerPl-sCnc 10.0 Normal 4 7 - 17 [facility] Glucose SerPl-mCnc 118.0 mg/dL Above high normal 11/25 4 70 - 100 [facility] Potassium SerPl-sCnc 3.8 mmol/L Normal 02 4 3.3 - 5.3 [facility] Sodium SerPl-sCnc 142.0 mmol/L Normal 4 136 - 144 [facility] Creat SerPl-mCnc 0.57 mg/dL Normal 4 0.4 - 1.3 [facility] Chloride SerPl-sCnc 105.0 mmol/L Normal 12/14/19 2 4 98 - 107 [facility] BUN/Creat SerPl 40.4 Above high normal 02 4 8 - 23 [facility] GFR/BSA.pred SerPlBld PDK-UIR-XkPRmv >60.0 mL/min/1.73m2 Normal 4 - [facility] HCO3 SerPl-sCnc 27.0 mmol/L Normal 4 20 - 30 [facility] Magnesium SerPl-mCnc 1.8 mg/dL Normal 02 4 1.7 - 2.4 [facility] Phosphate SerPl-mCnc 3.8 mg/dL Normal 02 4 2.2 - 4.5 [facility] Lymphocytes/leuk NFr Bld Auto 28.4 % Normal 4 17 - 50 [facility] Monocytes # Bld Auto 0.41 x 1000/uL Normal 12/13 4 0 - 1 [facility] Lymphocytes # Bld Auto 1.28 x 1000/uL Normal 4 0.6 - 3.7 [facility] MCV RBC Auto 92.5 fL Normal 4 80 - 100 [facility] nRBC/100 WBC Bld Auto-Rto 0.0 % Normal 4 0 - 1 [facility] Basophils/leuk NFr Bld Auto 0.4 % Normal 4 0 - 1.4 [facility] Neutrophils # Bld Auto 2.56 x 1000/uL Normal 4 2 - 7.6 [facility] Eosinophil/leuk NFr Bld Auto 4.4 % Normal 4 0 - 5 [facility] Imm Granulocytes # Bld Auto 0.03 x 1000/uL Normal 4 0 - 0.3 [facility] Basophils # Bld Auto 0.02 x 1000/uL Normal 12/13 4 0 - 1 [facility] Platelet # Bld Auto 407.0 x1000/uL Normal 4 150 - 420 [facility] Hct VFr Bld Auto 24.8 % Below low normal 02 4 38.5 - 50 [facility] Eosinophil # Bld Auto 0.2 x 1000/uL Normal 12/13 4 0 - 1 [facility] RDW RBC Auto-Rto 15.8 % Above high normal 4 11 - 15 [facility] RBC # Bld Auto 2.68 M/uL Below low normal 4 4 - 6 [facility] WBC # Bld Auto 4.5 x1000/uL Normal 4 4 - 11 [facility] nRBC # Bld Auto 0.0 x 1000/uL Normal 4 0 - 1 [facility] Hgb Bld-mCnc 7.5 g/dL Below low normal 4 13.2 - 17.1 [facility] Imm Granulocytes/leuk NFr Bld Auto 0.7 % Normal 4 0 - 1 [facility] MCHC RBC Auto-mCnc 30.2 g/dL Below low normal 12/13 4 31 - 36 [facility] MCH RBC Qn Auto 28.0 pg Normal 4 27 - 33 [facility] Neutrophils/leuk NFr Bld Auto 57.0 % Normal 4 39 - 72 [facility] Monocytes/leuk NFr Bld Auto 9.1 % Normal 4 4 - 12 [facility] PMV Bld Auto 11.0 fL Normal 4 8 - 12 [facility] Procalcitonin SerPl-mCnc 0.09 ng/mL Normal 4 - [facility] Glucose SerPl-mCnc 158.0 mg/dL Above high normal 11/25 4 70 - 100 [facility] Potassium SerPl-sCnc 4.0 mmol/L Normal 02 4 3.3 - 5.3 [facility] GFR/BSA.pred SerPlBld YBZ-TVC-OrQMsm >60.0 mL/min/1.73m2 Normal 4 - [facility] Creat SerPl-mCnc 0.54 mg/dL Normal 4 0.4 - 1.3 [facility] Anion Gap3 SerPl-sCnc 8.0 Normal 4 7 - 17 [facility] BUN SerPl-mCnc 22.0 mg/dL Above high normal 12/13/19 2 4 6 - 20 [facility] Calcium SerPl-mCnc 9.2 mg/dL Normal 4 8.8 - 10.2 [facility] Sodium SerPl-sCnc 141.0 mmol/L Normal 4 136 - 144 [facility] BUN/Creat SerPl 40.7 Above high normal 02 4 8 - 23 [facility] Chloride SerPl-sCnc 104.0 mmol/L Normal 12/13/19 2 4 98 - 107 [facility] HCO3 SerPl-sCnc 29.0 mmol/L Normal 4 20 - 30 [facility] Magnesium SerPl-mCnc 2.0 mg/dL Normal 02 4 1.7 - 2.4 [facility] Phosphate SerPl-mCnc 4.1 mg/dL Normal 02 4 2.2 - 4.5 [facility] Monocytes/leuk NFr Bld Auto 8.3 % Normal 4 4 - 12 [facility] Imm Granulocytes/leuk NFr Bld Auto 0.4 % Normal 4 0 - 1 [facility] Lymphocytes # Bld Auto 1.38 x 1000/uL Normal 4 0.6 - 3.7 [facility] MCHC RBC Auto-mCnc 29.6 g/dL Below low normal 12/12 4 31 - 36 [facility] Lymphocytes/leuk NFr Bld Auto 31.0 % Normal 4 17 - 50 [facility] Basophils/leuk NFr Bld Auto 0.4 % Normal 4 0 - 1.4 [facility] RDW RBC Auto-Rto 15.7 % Above high normal 4 11 - 15 [facility] RBC # Bld Auto 2.64 M/uL Below low normal 4 4 - 6 [facility] Platelet # Bld Auto 388.0 x1000/uL Normal 4 150 - 420 [facility] PMV Bld Auto 11.1 fL Normal 4 8 - 12 [facility] Imm Granulocytes # Bld Auto 0.02 x 1000/uL Normal 4 0 - 0.3 [facility] Basophils # Bld Auto 0.02 x 1000/uL Normal 12/12 4 0 - 1 [facility] MCV RBC Auto 94.7 fL Normal 4 80 - 100 [facility] Hct VFr Bld Auto 25.0 % Below low normal 02 4 38.5 - 50 [facility] Hgb Bld-mCnc 7.4 g/dL Below low normal 4 13.2 - 17.1 [facility] nRBC/100 WBC Bld Auto-Rto 0.0 % Normal 4 0 - 1 [facility] MCH RBC Qn Auto 28.0 pg Normal 4 27 - 33 [facility] Neutrophils/leuk NFr Bld Auto 56.1 % Normal 4 39 - 72 [facility] Eosinophil/leuk NFr Bld Auto 3.8 % Normal 4 0 - 5 [facility] WBC # Bld Auto 4.5 x1000/uL Normal 4 4 - 11 [facility] Monocytes # Bld Auto 0.37 x 1000/uL Normal 12/12 4 0 - 1 [facility] Eosinophil # Bld Auto 0.17 x 1000/uL Normal 07 4 0 - 1 [facility] Neutrophils # Bld Auto 2.49 x 1000/uL Normal 4 2 - 7.6 [facility] nRBC # Bld Auto 0.0 x 1000/uL Normal 4 0 - 1 [facility] BKR TEMPERATURE (ARTERIAL BG DOMINGO QUESTION) 99.9 Fahrenheit Normal 4 [facility] Base excess std BldA Calc-sCnc 3.0 mmol/L Normal 4 - [facility] HCO3 std BldA-sCnc 27.4 mmol/L Normal 4 21 - 28 [facility] FIO2 (ARTERIAL BG DOMINGO QUESTION) 98.0 % Normal 4 [facility] pO2 BldA 159.0 mmHg Above high normal 4 83 - 108 [facility] SaO2 % BldA 99.0 % Above high normal 4 94 - 98 [facility] pH BldA 7.39 units Normal 4 7.35 - 7.45 [facility] pCO2 BldA 46.0 mmHg Normal 4 32 - 48 [facility] nRBC/100 WBC Bld Auto-Rto 0.0 % Normal 4 0 - 1 [facility] Eosinophil/leuk NFr Bld Auto 4.7 % Normal 4 0 - 5 [facility] Imm Granulocytes/leuk NFr Bld Auto 0.8 % Normal 4 0 - 1 [facility] MCH RBC Qn Auto 28.8 pg Normal 4 27 - 33 [facility] MCV RBC Auto 93.2 fL Normal 4 80 - 100 [facility] Monocytes # Bld Auto 0.5 x 1000/uL Normal 4 0 - 1 [facility] RDW RBC Auto-Rto 15.4 % Above high normal 4 11 - 15 [facility] Basophils/leuk NFr Bld Auto 0.6 % Normal 4 0 - 1.4 [facility] Eosinophil # Bld Auto 0.25 x 1000/uL Normal 07 4 0 - 1 [facility] Neutrophils # Bld Auto 3.07 x 1000/uL Normal 4 2 - 7.6 [facility] Platelet # Bld Auto 424.0 x1000/uL Above high normal 0 4 150 - 420 [facility] Neutrophils/leuk NFr Bld Auto 57.6 % Normal 4 39 - 72 [facility] MCHC RBC Auto-mCnc 30.9 g/dL Below low normal 12/11 4 31 - 36 [facility] Imm Granulocytes # Bld Auto 0.04 x 1000/uL Normal 4 0 - 0.3 [facility] nRBC # Bld Auto 0.0 x 1000/uL Normal 4 0 - 1 [facility] WBC # Bld Auto 5.3 x1000/uL Normal 4 4 - 11 [facility] PMV Bld Auto 11.2 fL Normal 4 8 - 12 [facility] Monocytes/leuk NFr Bld Auto 9.4 % Normal 4 4 - 12 [facility] Lymphocytes # Bld Auto 1.43 x 1000/uL Normal 4 0.6 - 3.7 [facility] RBC # Bld Auto 2.64 M/uL Below low normal 4 4 - 6 [facility] Hgb Bld-mCnc 7.6 g/dL Below low normal 4 13.2 - 17.1 [facility] Basophils # Bld Auto 0.03 x 1000/uL Normal 12/11 4 0 - 1 [facility] Hct VFr Bld Auto 24.6 % Below low normal 02 4 38.5 - 50 [facility] Lymphocytes/leuk NFr Bld Auto 26.9 % Normal 4 17 - 50 [facility] GFR/BSA.pred SerPlBld HWC-YKZ-VaVSxd >60.0 mL/min/1.73m2 Normal 4 - [facility] Potassium SerPl-sCnc 4.3 mmol/L Normal 02 4 3.3 - 5.3 [facility] Calcium SerPl-mCnc 9.2 mg/dL Normal 4 8.8 - 10.2 [facility] Anion Gap3 SerPl-sCnc 10.0 Normal 4 7 - 17 [facility] BUN/Creat SerPl 39.6 Above high normal 02 4 8 - 23 [facility] Glucose SerPl-mCnc 141.0 mg/dL Above high normal 11/25 4 70 - 100 [facility] BUN SerPl-mCnc 21.0 mg/dL Above high normal 12/12/19 2 4 6 - 20 [facility] HCO3 SerPl-sCnc 27.0 mmol/L Normal 4 20 - 30 [facility] Creat SerPl-mCnc 0.53 mg/dL Normal 4 0.4 - 1.3 [facility] Chloride SerPl-sCnc 104.0 mmol/L Normal 12/12/19 2 4 98 - 107 [facility] Sodium SerPl-sCnc 141.0 mmol/L Normal 4 136 - 144 [facility] Phosphate SerPl-mCnc 4.8 mg/dL Above high normal 4 2.2 - 4.5 [facility] Magnesium SerPl-mCnc 2.0 mg/dL Normal 02 4 1.7 - 2.4 [facility] ABO GROUPING O Normal 4 [facility] SPECIMEN EXPIRATION DATE AND TIME 12/14/2023 23:59 Normal 4 [facility] RH TYPE POS Normal 4 [facility] ANTIBODY SCREEN NEG Normal 12/12/19 2 4 [facility] Valproate SerPl-mCnc 13.0 ug/mL Below low normal 4 50 - 100 [facility] Phosphate SerPl-mCnc 2.9 mg/dL Normal 02 4 2.2 - 4.5 [facility] Anion Gap3 SerPl-sCnc 11.0 Normal 4 7 - 17 [facility] GFR/BSA.pred SerPlBld [id number] >60.0 mL/min/1.73m2 Normal 4 - [facility] Glucose SerPl-mCnc 147.0 mg/dL Above high normal 11/25 4 70 - 100 [facility] Chloride SerPl-sCnc 103.0 mmol/L Normal 12/11/19 2 4 98 - 107 [facility] HCO3 SerPl-sCnc 25.0 mmol/L Normal 4 20 - 30 [facility] Potassium SerPl-sCnc 3.8 mmol/L Normal 02 4 3.3 - 5.3 [facility] Creat SerPl-mCnc 0.55 mg/dL Normal 4 0.4 - 1.3 [facility] BUN/Creat SerPl 36.4 Above high normal 02 4 8 - 23 [facility] Calcium SerPl-mCnc 9.4 mg/dL Normal 4 8.8 - 10.2 [facility] Sodium SerPl-sCnc 139.0 mmol/L Normal 4 136 - 144 [facility] BUN SerPl-mCnc 20.0 mg/dL Normal 4 6 - 20 [facility] Magnesium SerPl-mCnc 1.9 mg/dL Normal 02 4 1.7 - 2.4 [facility] nRBC # Bld Auto 0.0 x 1000/uL Normal 4 0 - 1 [facility] RBC # Bld Auto 2.77 M/uL Below low normal 4 4 - 6 [facility] PMV Bld Auto 11.0 fL Normal 4 8 - 12 [facility] Imm Granulocytes/leuk NFr Bld Auto 0.3 % Normal 4 0 - 1 [facility] RDW RBC Auto-Rto 14.9 % Normal 4 11 - 15 [facility] Hct VFr Bld Auto 25.2 % Below low normal 02 4 38.5 - 50 [facility] Eosinophil/leuk NFr Bld Auto 3.7 % Normal 4 0 - 5 [facility] Neutrophils # Bld Auto 3.85 x 1000/uL Normal 4 2 - 7.6 [facility] Monocytes # Bld Auto 0.49 x 1000/uL Normal 12/10 4 0 - 1 [facility] Hgb Bld-mCnc 7.9 g/dL Below low normal 4 13.2 - 17.1 [facility] WBC # Bld Auto 6.3 x1000/uL Normal 4 4 - 11 [facility] nRBC/100 WBC Bld Auto-Rto 0.0 % Normal 4 0 - 1 [facility] Basophils/leuk NFr Bld Auto 0.3 % Normal 4 0 - 1.4 [facility] Monocytes/leuk NFr Bld Auto 7.8 % Normal 4 4 - 12 [facility] Imm Granulocytes # Bld Auto 0.02 x 1000/uL Normal 4 0 - 0.3 [facility] Eosinophil # Bld Auto 0.23 x 1000/uL Normal 11/25 4 0 - 1 [facility] MCHC RBC Auto-mCnc 31.3 g/dL Normal 4 31 - 36 [facility] MCV RBC Auto 91.0 fL Normal 4 80 - 100 [facility] Platelet # Bld Auto 456.0 x1000/uL Above high normal 0 4 150 - 420 [facility] Lymphocytes/leuk NFr Bld Auto 26.8 % Normal 4 17 - 50 [facility] Neutrophils/leuk NFr Bld Auto 61.1 % Normal 4 39 - 72 [facility] Lymphocytes # Bld Auto 1.69 x 1000/uL Normal 4 0.6 - 3.7 [facility] Basophils # Bld Auto 0.02 x 1000/uL Normal 12/10 4 0 - 1 [facility] MCH RBC Qn Auto 28.5 pg Normal 4 27 - 33 [facility] Valproate SerPl-mCnc 40.3 ug/mL Below low normal 4 50 - 100 [facility] Vit B12 SerPl-mCnc 495.0 pg/mL Normal 4 232 - 1245 [facility] Prealb SerPl Neph-mCnc 17.3 mg/dL Below low normal 4 20 - 40 [facility] CRP SerPl HS-mCnc 7.5 mg/L Above high normal 12/09 4 - [facility] Calcium SerPl-mCnc 9.3 mg/dL Normal 4 8.8 - 10.2 [facility] Potassium SerPl-sCnc 4.0 mmol/L Normal 02 4 3.3 - 5.3 [facility] Anion Gap3 SerPl-sCnc 11.0 Normal 4 7 - 17 [facility] Chloride SerPl-sCnc 108.0 mmol/L Above high normal 4 98 - 107 [facility] HCO3 SerPl-sCnc 25.0 mmol/L Normal 4 20 - 30 [facility] GFR/BSA.pred SerPlBld [id number] >60.0 mL/min/1.73m2 Normal 4 - [facility] Sodium SerPl-sCnc 144.0 mmol/L Normal 4 136 - 144 [facility] Creat SerPl-mCnc 0.56 mg/dL Normal 4 0.4 - 1.3 [facility] Glucose SerPl-mCnc 161.0 mg/dL Above high normal 11/25 4 70 - 100 [facility] BUN SerPl-mCnc 22.0 mg/dL Above high normal 12/10/19 2 4 6 - 20 [facility] BUN/Creat SerPl 39.3 Above high normal 02 4 8 - 23 [facility] Phosphate SerPl-mCnc 4.6 mg/dL Above high normal 4 2.2 - 4.5 [facility] Magnesium SerPl-mCnc 2.1 mg/dL Normal 02 4 1.7 - 2.4 [facility] Hct VFr Bld Auto 24.8 % Below low normal 02 4 38.5 - 50 [facility] RBC # Bld Auto 2.68 M/uL Below low normal 4 4 - 6 [facility] Imm Granulocytes/leuk NFr Bld Auto 0.4 % Normal 4 0 - 1 [facility] Basophils # Bld Auto 0.04 x 1000/uL Normal 12/09 4 0 - 1 [facility] MCH RBC Qn Auto 28.7 pg Normal 4 27 - 33 [facility] Eosinophil/leuk NFr Bld Auto 5.8 % Above high normal 4 0 - 5 [facility] Hgb Bld-mCnc 7.7 g/dL Below low normal 4 13.2 - 17.1 [facility] Neutrophils # Bld Auto 2.89 x 1000/uL Normal 4 2 - 7.6 [facility] MCHC RBC Auto-mCnc 31.0 g/dL Normal 4 31 - 36 [facility] nRBC/100 WBC Bld Auto-Rto 0.0 % Normal 4 0 - 1 [facility] Monocytes/leuk NFr Bld Auto 8.7 % Normal 4 4 - 12 [facility] Lymphocytes/leuk NFr Bld Auto 33.4 % Normal 4 17 - 50 [facility] PMV Bld Auto 11.3 fL Normal 4 8 - 12 [facility] Neutrophils/leuk NFr Bld Auto 51.0 % Normal 4 39 - 72 [facility] Monocytes # Bld Auto 0.49 x 1000/uL Normal 12/09 4 0 - 1 [facility] Basophils/leuk NFr Bld Auto 0.7 % Normal 4 0 - 1.4 [facility] WBC # Bld Auto 5.7 x1000/uL Normal 4 4 - 11 [facility] Lymphocytes # Bld Auto 1.89 x 1000/uL Normal 4 0.6 - 3.7 [facility] RDW RBC Auto-Rto 15.3 % Above high normal 4 11 - 15 [facility] MCV RBC Auto 92.5 fL Normal 4 80 - 100 [facility] Granulocytes # Bld Auto 0.02 x 1000/uL Normal 4 0 - 0.3 [facility] nRBC # Bld Auto 0.0 x 1000/uL Normal 4 0 - 1 [facility] Platelet # Bld Auto 450.0 x1000/uL Above high normal 0 4 150 - 420 [facility] Eosinophil # Bld Auto 0.33 x 1000/uL Normal 11/25 4 0 - 1 [facility] ANTIBODY SCREEN NEG Normal 12/09/19 2 4 [facility] ABO GROUPING O Normal 4 [facility] RH TYPE POS Normal 4 [facility] SPECIMEN EXPIRATION DATE AND TIME 12/11/2023 23:59 Normal 4 [facility] Calcium SerPl-mCnc 9.4 mg/dL Normal 4 8.8 - 10.2 [facility] HCO3 SerPl-sCnc 28.0 mmol/L Normal 4 20 - 30 [facility] Sodium SerPl-sCnc 143.0 mmol/L Normal 4 136 - 144 [facility] Anion Gap3 SerPl-sCnc 8.0 Normal 4 7 - 17 [facility] Chloride SerPl-sCnc 107.0 mmol/L Normal 12/09/19 2 4 98 - 107 [facility] Creat SerPl-mCnc 0.55 mg/dL Normal 4 0.4 - 1.3 [facility] BUN/Creat SerPl 36.4 Above high normal 02 4 8 - 23 [facility] Glucose SerPl-mCnc 151.0 mg/dL Above high normal 11/25 4 70 - 100 [facility] GFR/BSA.pred SerPlBld [id number] >60.0 mL/min/1.73m2 Normal 4 - [facility] Potassium SerPl-sCnc 3.7 mmol/L Normal 02 4 3.3 - 5.3 [facility] BUN SerPl-mCnc 20.0 mg/dL Normal 4 6 - 20 [facility] Magnesium SerPl-mCnc 1.9 mg/dL Normal 02 4 1.7 - 2.4 [facility] Phosphate SerPl-mCnc 4.1 mg/dL Normal 02 4 2.2 - 4.5 [facility] Lymphocytes # Bld Auto 1.6 x 1000/uL Normal 4 0.6 - 3.7 [facility] RBC # Bld Auto 2.57 M/uL Below low normal 4 4 - 6 [facility] Monocytes # Bld Auto 0.53 x 1000/uL Normal 12/08 4 0 - 1 [facility] Neutrophils/leuk NFr Bld Auto 57.4 % Normal 4 39 - 72 [facility] Hct VFr Bld Auto 23.9 % Below low normal 02 4 38.5 - 50 [facility] Basophils # Bld Auto 0.03 x 1000/uL Normal 12/08 4 0 - 1 [facility] MCV RBC Auto 93.0 fL Normal 4 80 - 100 [facility] Eosinophil # Bld Auto 0.1 x 1000/uL Normal 12/08 4 0 - 1 [facility] nRBC # Bld Auto 0.0 x 1000/uL Normal 4 0 - 1 [facility] Neutrophils # Bld Auto 3.07 x 1000/uL Normal 4 2 - 7.6 [facility] Granulocytes # Bld Auto 0.01 x 1000/uL Normal 4 0 - 0.3 [facility] Basophils/leuk NFr Bld Auto 0.6 % Normal 4 0 - 1.4 [facility] RDW RBC Auto-Rto 15.0 % Normal 4 11 - 15 [facility] WBC # Bld Auto 5.3 x1000/uL Normal 4 4 - 11 [facility] Lymphocytes/leuk NFr Bld Auto 30.0 % Normal 4 17 - 50 [facility] Granulocytes/leuk NFr Bld Auto 0.2 % Normal 4 0 - 1 [facility] nRBC/100 WBC Bld Auto-Rto 0.0 % Normal 4 0 - 1 [facility] Platelet # Bld Auto 447.0 x1000/uL Above high normal 0 4 150 - 420 [facility] Eosinophil/leuk NFr Bld Auto 1.9 % Normal 4 0 - 5 [facility] Monocytes/leuk NFr Bld Auto 9.9 % Normal 4 4 - 12 [facility] PMV Bld Auto 11.2 fL Normal 4 8 - 12 [facility] MCHC RBC Auto-mCnc 31.0 g/dL Normal 4 31 - 36 [facility] Hgb Bld-mCnc 7.4 g/dL Below low normal 4 13.2 - 17.1 [facility] MCH RBC Qn Auto 28.8 pg Normal 4 27 - 33 [facility] Phosphate SerPl-mCnc 3.2 mg/dL Normal 02 4 2.2 - 4.5 [facility] GFR/BSA.pred SerPlBld IVM-[id number]-[id number] >60.0 mL/min/1.73m2 Normal 4 - [facility] HCO3 SerPl-sCnc 29.0 mmol/L Normal 4 20 - 30 [facility] Calcium SerPl-mCnc 9.2 mg/dL Normal 4 8.8 - 10.2 [facility] Chloride SerPl-sCnc 106.0 mmol/L Normal 12/08/19 2 4 98 - 107 [facility] Potassium SerPl-sCnc 3.6 mmol/L Normal 02 4 3.3 - 5.3 [facility] Creat SerPl-mCnc 0.58 mg/dL Normal 4 0.4 - 1.3 [facility] Anion Gap3 SerPl-sCnc 9.0 Normal 4 7 - 17 [facility] Sodium SerPl-sCnc 144.0 mmol/L Normal 4 136 - 144 [facility] Glucose SerPl-mCnc 168.0 mg/dL Above high normal 11/25 4 70 - 100 [facility] BUN/Creat SerPl 36.2 Above high normal 02 4 8 - 23 [facility] BUN SerPl-mCnc 21.0 mg/dL Above high normal 12/08/19 2 4 6 - 20 [facility] Magnesium SerPl-mCnc 1.9 mg/dL Normal 02 4 1.7 - 2.4 [facility] Eosinophil/leuk NFr Bld Auto 3.1 % Normal 4 0 - 5 [facility] Monocytes # Bld Auto 0.62 x 1000/uL Normal 12/07 4 0 - 1 [facility] nRBC/100 WBC Bld Auto-Rto 0.0 % Normal 4 0 - 1 [facility] Hct VFr Bld Auto 23.1 % Below low normal 02 4 38.5 - 50 [facility] Eosinophil # Bld Auto 0.18 x 1000/uL Normal 11/25 4 0 - 1 [facility] PMV Bld Auto 11.1 fL Normal 4 8 - 12 [facility] Basophils/leuk NFr Bld Auto 0.3 % Normal 4 0 - 1.4 [facility] Lymphocytes/leuk NFr Bld Auto 28.5 % Normal 4 17 - 50 [facility] RBC # Bld Auto 2.48 M/uL Below low normal 4 4 - 6 [facility] Lymphocytes # Bld Auto 1.66 x 1000/uL Normal 4 0.6 - 3.7 [facility] Granulocytes/leuk NFr Bld Auto 0.3 % Normal 4 0 - 1 [facility] Platelet # Bld Auto 424.0 x1000/uL Above high normal 0 4 150 - 420 [facility] MCHC RBC Auto-mCnc 30.7 g/dL Below low normal 12/07 4 31 - 36 [facility] Granulocytes # Bld Auto 0.02 x 1000/uL Normal 4 0 - 0.3 [facility] MCH RBC Qn Auto 28.6 pg Normal 4 27 - 33 [facility] nRBC # Bld Auto 0.0 x 1000/uL Normal 4 0 - 1 [facility] Neutrophils/leuk NFr Bld Auto 57.2 % Normal 4 39 - 72 [facility] Basophils # Bld Auto 0.02 x 1000/uL Normal 12/07 4 0 - 1 [facility] Hgb Bld-mCnc 7.1 g/dL Below low normal 4 13.2 - 17.1 [facility] Neutrophils # Bld Auto 3.33 x 1000/uL Normal 4 2 - 7.6 [facility] Monocytes/leuk NFr Bld Auto 10.6 % Normal 4 4 - 12 [facility] MCV RBC Auto 93.1 fL Normal 4 80 - 100 [facility] WBC # Bld Auto 5.8 x1000/uL Normal 4 4 - 11 [facility] RDW RBC Auto-Rto 15.1 % Above high normal 4 11 - 15 [facility] Magnesium SerPl-mCnc 2.1 mg/dL Normal 02 4 1.7 - 2.4 [facility] Chloride SerPl-sCnc 107.0 mmol/L Normal 12/07/19 2 4 98 - 107 [facility] Creat SerPl-mCnc 0.56 mg/dL Normal 4 0.4 - 1.3 [facility] HCO3 SerPl-sCnc 26.0 mmol/L Normal 4 20 - 30 [facility] Glucose SerPl-mCnc 196.0 mg/dL Above high normal 11/25 4 70 - 100 [facility] BUN SerPl-mCnc 23.0 mg/dL Above high normal 12/07/19 2 4 6 - 20 [facility] GFR/BSA.pred SerPlBld [id number] >60.0 mL/min/1.73m2 Normal 4 - [facility] Calcium SerPl-mCnc 9.4 mg/dL Normal 4 8.8 - 10.2 [facility] Anion Gap3 SerPl-sCnc 12.0 Normal 4 7 - 17 [facility] Sodium SerPl-sCnc 145.0 mmol/L Above high normal 12/06 4 136 - 144 [facility] BUN/Creat SerPl 41.1 Above high normal 02 4 8 - 23 [facility] Potassium SerPl-sCnc 3.9 mmol/L Normal 02 4 3.3 - 5.3 [facility] Phosphate SerPl-mCnc 3.2 mg/dL Normal 02 4 2.2 - 4.5 [facility] RDW RBC Auto-Rto 15.4 % Above high normal 4 11 - 15 [facility] MCH RBC Qn Auto 29.5 pg Normal 4 27 - 33 [facility] Monocytes/leuk NFr Bld Auto 9.6 % Normal 4 4 - 12 [facility] Granulocytes/leuk NFr Bld Auto 0.2 % Normal 4 0 - 1 [facility] nRBC/100 WBC Bld Auto-Rto 0.0 % Normal 4 0 - 1 [facility] Monocytes # Bld Auto 0.54 x 1000/uL Normal 12/06 4 0 - 1 [facility] Eosinophil/leuk NFr Bld Auto 5.5 % Above high normal 4 0 - 5 [facility] Platelet # Bld Auto 473.0 x1000/uL Above high normal 0 4 150 - 420 [facility] WBC # Bld Auto 5.6 x1000/uL Normal 4 4 - 11 [facility] Basophils # Bld Auto 0.02 x 1000/uL Normal 12/06 4 0 - 1 [facility] MCV RBC Auto 93.3 fL Normal 4 80 - 100 [facility] Basophils/leuk NFr Bld Auto 0.4 % Normal 4 0 - 1.4 [facility] RBC # Bld Auto 2.54 M/uL Below low normal 4 4 - 6 [facility] PMV Bld Auto 11.1 fL Normal 4 8 - 12 [facility] Granulocytes # Bld Auto 0.01 x 1000/uL Normal 4 0 - 0.3 [facility] MCHC RBC Auto-mCnc 31.6 g/dL Normal 4 31 - 36 [facility] Lymphocytes/leuk NFr Bld Auto 32.0 % Normal 4 17 - 50 [facility] Neutrophils/leuk NFr Bld Auto 52.3 % Normal 4 39 - 72 [facility] Hgb Bld-mCnc 7.5 g/dL Below low normal 4 13.2 - 17.1 [facility] Eosinophil # Bld Auto 0.31 x 1000/uL Normal 11/25 4 0 - 1 [facility] Lymphocytes # Bld Auto 1.8 x 1000/uL Normal 4 0.6 - 3.7 [facility] Hct VFr Bld Auto 23.7 % Below low normal 02 4 38.5 - 50 [facility] nRBC # Bld Auto 0.0 x 1000/uL Normal 4 0 - 1 [facility] Neutrophils # Bld Auto 2.95 x 1000/uL Normal 4 2 - 7.6 [facility] Ammonia Plas-sCnc 25.0 umol/L Normal 4 11 - 35 [facility] Bilirub SerPl-mCnc 0.3 mg/dL Normal 4 - [facility] Bilirub Direct SerPl-mCnc 0.2 mg/dL Normal 4 - [facility] ALP SerPl-cCnc 120.0 U/L Normal 4 9 - 122 [facility] ALT SerPl w/o P-5'-P-cCnc 31.0 U/L Normal 4 9 - 59 [facility] AST/ALT SerPl-cRto 0.6 Normal 4 - [facility] AST SerPl w P-5'-P-cCnc 19.0 U/L Normal 4 10 - 35 [facility] SPECIMEN EXPIRATION DATE AND TIME 12/08/2023 23:59 Normal 4 [facility] ABO GROUPING O Normal 4 [facility] ANTIBODY SCREEN NEG Normal 12/06/19 2 4 [facility] RH TYPE POS Normal 4 [facility] Hct VFr Bld Auto 24.8 % Below low normal 02 4 38.5 - 50 [facility] PMV Bld Auto 11.3 fL Normal 4 8 - 12 [facility] Basophils/leuk NFr Bld Auto 0.3 % Normal 4 0 - 1.4 [facility] MCH RBC Qn Auto 28.9 pg Normal 4 27 - 33 [facility] Neutrophils/leuk NFr Bld Auto 77.7 % Above high normal 4 39 - 72 [facility] Lymphocytes # Bld Auto 1.03 x 1000/uL Normal 4 0.6 - 3.7 [facility] Basophils # Bld Auto 0.02 x 1000/uL Normal 12/05 4 0 - 1 [facility] RBC # Bld Auto 2.63 M/uL Below low normal 4 4 - 6 [facility] Granulocytes/leuk NFr Bld Auto 0.4 % Normal 4 0 - 1 [facility] Monocytes # Bld Auto 0.56 x 1000/uL Normal 12/05 4 0 - 1 [facility] RDW RBC Auto-Rto 15.7 % Above high normal 4 11 - 15 [facility] MCHC RBC Auto-mCnc 30.6 g/dL Below low normal 12/05 4 31 - 36 [facility] nRBC # Bld Auto 0.0 x 1000/uL Normal 4 0 - 1 [facility] WBC # Bld Auto 7.5 x1000/uL Normal 4 4 - 11 [facility] Neutrophils # Bld Auto 5.85 x 1000/uL Normal 4 2 - 7.6 [facility] nRBC/100 WBC Bld Auto-Rto 0.0 % Normal 4 0 - 1 [facility] MCV RBC Auto 94.3 fL Normal 4 80 - 100 [facility] Granulocytes # Bld Auto 0.03 x 1000/uL Normal 4 0 - 0.3 [facility] Hgb Bld-mCnc 7.6 g/dL Below low normal 4 13.2 - 17.1 [facility] Platelet # Bld Auto 498.0 x1000/uL Above high normal 0 4 150 - 420 [facility] Eosinophil/leuk NFr Bld Auto 0.5 % Normal 4 0 - 5 [facility] Lymphocytes/leuk NFr Bld Auto 13.7 % Below low normal 4 17 - 50 [facility] Monocytes/leuk NFr Bld Auto 7.4 % Normal 4 4 - 12 [facility] Eosinophil # Bld Auto 0.04 x 1000/uL Normal 11/25 4 0 - 1 [facility] BUN SerPl-mCnc 25.0 mg/dL Above high normal 12/06/19 2 4 6 - 20 [facility] Potassium SerPl-sCnc 4.1 mmol/L Normal 02 4 3.3 - 5.3 [facility] Sodium SerPl-sCnc 143.0 mmol/L Normal 4 136 - 144 [facility] Glucose SerPl-mCnc 236.0 mg/dL Above high normal 11/25 4 70 - 100 [facility] Chloride SerPl-sCnc 108.0 mmol/L Above high normal 4 98 - 107 [facility] Creat SerPl-mCnc 0.57 mg/dL Normal 4 0.4 - 1.3 [facility] Calcium SerPl-mCnc 9.2 mg/dL Normal 4 8.8 - 10.2 [facility] BUN/Creat SerPl 43.9 Above high normal 02 4 8 - 23 [facility] HCO3 SerPl-sCnc 24.0 mmol/L Normal 4 20 - 30 [facility] GFR/BSA.pred SerPlBld JAG-SHJ-VtUBmy >60.0 mL/min/1.73m2 Normal 4 - [facility] Anion Gap3 SerPl-sCnc 11.0 Normal 4 7 - 17 [facility] Phosphate SerPl-mCnc 4.1 mg/dL Normal 02 4 2.2 - 4.5 [facility] Magnesium SerPl-mCnc 2.0 mg/dL Normal 02 4 1.7 - 2.4 [facility] Phosphate SerPl-mCnc 4.2 mg/dL Normal 02 4 2.2 - 4.5 [facility] Magnesium SerPl-mCnc 1.9 mg/dL Normal 02 4 1.7 - 2.4 [facility] Anion Gap3 SerPl-sCnc 12.0 Normal 4 7 - 17 [facility] BUN SerPl-mCnc 21.0 mg/dL Above high normal 12/05/19 2 4 6 - 20 [facility] Chloride SerPl-sCnc 108.0 mmol/L Above high normal 4 98 - 107 [facility] Calcium SerPl-mCnc 9.4 mg/dL Normal 4 8.8 - 10.2 [facility] Sodium SerPl-sCnc 144.0 mmol/L Normal 4 136 - 144 [facility] GFR/BSA.pred SerPlBld FSK-BAP-PeUOmw >60.0 mL/min/1.73m2 Normal 4 - [facility] Creat SerPl-mCnc 0.62 mg/dL Normal 4 0.4 - 1.3 [facility] HCO3 SerPl-sCnc 24.0 mmol/L Normal 4 20 - 30 [facility] Potassium SerPl-sCnc 3.3 mmol/L Normal 02 4 3.3 - 5.3 [facility] Glucose SerPl-mCnc 207.0 mg/dL Above high normal 11/25 4 70 - 100 [facility] BUN/Creat SerPl 33.9 Above high normal 02 4 8 - 23 [facility] Neutrophils/leuk NFr Bld Auto 64.0 % Normal 4 39 - 72 [facility] Neutrophils # Bld Auto 4.92 x 1000/uL Normal 4 2 - 7.6 [facility] Monocytes # Bld Auto 0.98 x 1000/uL Normal 12/04 4 0 - 1 [facility] MCV RBC Auto 92.4 fL Normal 4 80 - 100 [facility] Monocytes/leuk NFr Bld Auto 12.7 % Above high normal 4 4 - 12 [facility] Hgb Bld-mCnc 7.9 g/dL Below low normal 4 13.2 - 17.1 [facility] nRBC/100 WBC Bld Auto-Rto 0.0 % Normal 4 0 - 1 [facility] Granulocytes # Bld Auto 0.03 x 1000/uL Normal 4 0 - 0.3 [facility] RBC # Bld Auto 2.77 M/uL Below low normal 4 4 - 6 [facility] Lymphocytes/leuk NFr Bld Auto 22.2 % Normal 4 17 - 50 [facility] Basophils/leuk NFr Bld Auto 0.4 % Normal 4 0 - 1.4 [facility] MCH RBC Qn Auto 28.5 pg Normal 4 27 - 33 [facility] nRBC # Bld Auto 0.0 x 1000/uL Normal 4 0 - 1 [facility] Platelet # Bld Auto 559.0 x1000/uL Above high normal 0 4 150 - 420 [facility] Hct VFr Bld Auto 25.6 % Below low normal 02 4 38.5 - 50 [facility] RDW RBC Auto-Rto 15.9 % Above high normal 4 11 - 15 [facility] Granulocytes/leuk NFr Bld Auto 0.4 % Normal 4 0 - 1 [facility] Eosinophil # Bld Auto 0.02 x 1000/uL Normal 11/25 4 0 - 1 [facility] PMV Bld Auto 11.3 fL Normal 4 8 - 12 [facility] MCHC RBC Auto-mCnc 30.9 g/dL Below low normal 12/04 4 31 - 36 [facility] Lymphocytes # Bld Auto 1.71 x 1000/uL Normal 4 0.6 - 3.7 [facility] WBC # Bld Auto 7.7 x1000/uL Normal 4 4 - 11 [facility] Basophils # Bld Auto 0.03 x 1000/uL Normal 12/04 4 0 - 1 [facility] Eosinophil/leuk NFr Bld Auto 0.3 % Normal 4 0 - 5 [facility] Ammonia Plas-sCnc 21.0 umol/L Normal 4 11 - 35 [facility] Procalcitonin SerPl-mCnc 0.09 ng/mL Normal 4 - [facility] Sodium SerPl-sCnc 142.0 mmol/L Normal 4 136 - 144 [facility] Potassium SerPl-sCnc 3.6 mmol/L Normal 02 4 3.3 - 5.3 [facility] HCO3 SerPl-sCnc 26.0 mmol/L Normal 4 20 - 30 [facility] GFR/BSA.pred SerPlBld CAK-SBH-ReUJdo >60.0 mL/min/1.73m2 Normal 4 - [facility] Chloride SerPl-sCnc 105.0 mmol/L Normal 12/04/19 2 4 98 - 107 [facility] Calcium SerPl-mCnc 9.6 mg/dL Normal 4 8.8 - 10.2 [facility] Creat SerPl-mCnc 0.58 mg/dL Normal 4 0.4 - 1.3 [facility] BUN SerPl-mCnc 24.0 mg/dL Above high normal 12/04/19 2 4 6 - 20 [facility] Anion Gap3 SerPl-sCnc 11.0 Normal 4 7 - 17 [facility] Glucose SerPl-mCnc 203.0 mg/dL Above high normal 4 70 - 100 [facility] BUN/Creat SerPl 41.4 Above high normal 02 4 8 - 23 [facility] Phosphate SerPl-mCnc 3.3 mg/dL Normal 02 4 2.2 - 4.5 [facility] Magnesium SerPl-mCnc 1.9 mg/dL Normal 02 4 1.7 - 2.4 [facility] Platelet # Bld Auto 583.0 x1000/uL Above high normal 0 4 150 - 420 [facility] WBC # Bld Auto 7.5 x1000/uL Normal 4 4 - 11 [facility] Basophils # Bld Auto 0.03 x 1000/uL Normal 12/03 4 0 - 1 [facility] MCV RBC Auto 90.2 fL Normal 4 80 - 100 [facility] nRBC/100 WBC Bld Auto-Rto 0.0 % Normal 4 0 - 1 [facility] Lymphocytes # Bld Auto 1.48 x 1000/uL Normal 4 0.6 - 3.7 [facility] Monocytes/leuk NFr Bld Auto 11.2 % Normal 4 4 - 12 [facility] Granulocytes/leuk NFr Bld Auto 0.4 % Normal 4 0 - 1 [facility] Neutrophils # Bld Auto 5.08 x 1000/uL Normal 4 2 - 7.6 [facility] nRBC # Bld Auto 0.0 x 1000/uL Normal 4 0 - 1 [facility] MCH RBC Qn Auto 28.9 pg Normal 4 27 - 33 [facility] Lymphocytes/leuk NFr Bld Auto 19.7 % Normal 4 17 - 50 [facility] Neutrophils/leuk NFr Bld Auto 67.8 % Normal 4 39 - 72 [facility] RDW RBC Auto-Rto 15.4 % Above high normal 4 11 - 15 [facility] Monocytes # Bld Auto 0.84 x 1000/uL Normal 12/03 4 0 - 1 [facility] Basophils/leuk NFr Bld Auto 0.4 % Normal 4 0 - 1.4 [facility] Eosinophil/leuk NFr Bld Auto 0.5 % Normal 4 0 - 5 [facility] Hgb Bld-mCnc 7.7 g/dL Below low normal 4 13.2 - 17.1 [facility] MCHC RBC Auto-mCnc 32.1 g/dL Normal 4 31 - 36 [facility] Eosinophil # Bld Auto 0.04 x 1000/uL Normal 07 4 0 - 1 [facility] RBC # Bld Auto 2.66 M/uL Below low normal 4 4 - 6 [facility] PMV Bld Auto 11.2 fL Normal 4 8 - 12 [facility] Granulocytes # Bld Auto 0.03 x 1000/uL Normal 07/09/202 4 0 - 0.3 [facility] Hct VFr Bld Auto 24.0 % Below low normal 02 4 38.5 - 50 [facility] RH TYPE POS Normal 4 [facility] SPECIMEN EXPIRATION DATE AND TIME 12/05/2023 23:59 Normal 4 [facility] ANTIBODY SCREEN NEG Normal 12/03/19 2 4 [facility] ABO GROUPING O Normal 4 [facility] Calcium SerPl-mCnc 9.1 mg/dL Normal 4 8.8 - 10.2 [facility] GFR/BSA.pred SerPlBld VJW-IBW-LlIEiq >60.0 mL/min/1.73m2 Normal 4 - [facility] Chloride SerPl-sCnc 102.0 mmol/L Normal 12/03/19 2 4 98 - 107 [facility] Potassium SerPl-sCnc 4.1 mmol/L Normal 02 4 3.3 - 5.3 [facility] HCO3 SerPl-sCnc 29.0 mmol/L Normal 4 20 - 30 [facility] Glucose SerPl-mCnc 168.0 mg/dL Above high normal 4 70 - 100 [facility] BUN/Creat SerPl 47.9 Above high normal 02 4 8 - 23 [facility] Sodium SerPl-sCnc 140.0 mmol/L Normal 4 136 - 144 [facility] BUN SerPl-mCnc 23.0 mg/dL Above high normal 12/03/19 2 4 6 - 20 [facility] Creat SerPl-mCnc 0.48 mg/dL Normal 4 0.4 - 1.3 [facility] Anion Gap3 SerPl-sCnc 9.0 Normal 4 7 - 17 [facility] CRP SerPl HS-mCnc 14.1 mg/L Above high normal 12/02 4 - [facility] Phosphate SerPl-mCnc 3.3 mg/dL Normal 02 4 2.2 - 4.5 [facility] Magnesium SerPl-mCnc 1.8 mg/dL Normal 02 4 1.7 - 2.4 [facility] Prealb SerPl Neph-mCnc 17.5 mg/dL Below low normal 4 20 - 40 [facility] Platelet # Bld Auto 573.0 x1000/uL Above high normal 0 4 150 - 420 [facility] PMV Bld Auto 11.1 fL Normal 4 8 - 12 [facility] Imm Granulocytes/leuk NFr Bld Auto 0.4 % Normal 4 0 - 1 [facility] Lymphocytes/leuk NFr Bld Auto 31.2 % Normal 4 17 - 50 [facility] Basophils/leuk NFr Bld Auto 0.4 % Normal 4 0 - 1.4 [facility] nRBC/100 WBC Bld Auto-Rto 0.0 % Normal 4 0 - 1 [facility] Hct VFr Bld Auto 22.5 % Below low normal 02 4 38.5 - 50 [facility] Hgb Bld-mCnc 7.2 g/dL Below low normal 4 13.2 - 17.1 [facility] Eosinophil/leuk NFr Bld Auto 5.0 % Normal 4 0 - 5 [facility] nRBC # Bld Auto 0.0 x 1000/uL Normal 4 0 - 1 [facility] Neutrophils/leuk NFr Bld Auto 44.2 % Normal 4 39 - 72 [facility] Neutrophils # Bld Auto 2.38 x 1000/uL Normal 4 2 - 7.6 [facility] MCHC RBC Auto-mCnc 32.0 g/dL Normal 4 31 - 36 [facility] Eosinophil # Bld Auto 0.27 x 1000/uL Normal 07 4 0 - 1 [facility] MCH RBC Qn Auto 29.6 pg Normal 4 27 - 33 [facility] RBC # Bld Auto 2.43 M/uL Below low normal 4 4 - 6 [facility] Lymphocytes # Bld Auto 1.68 x 1000/uL Normal 4 0.6 - 3.7 [facility] WBC # Bld Auto 5.4 x1000/uL Normal 4 4 - 11 [facility] MCV RBC Auto 92.6 fL Normal 4 80 - 100 [facility] Basophils # Bld Auto 0.02 x 1000/uL Normal 12/02 4 0 - 1 [facility] Monocytes/leuk NFr Bld Auto 18.8 % Above high normal 4 4 - 12 [facility] Imm Granulocytes # Bld Auto 0.02 x 1000/uL Normal 4 0 - 0.3 [facility] Monocytes # Bld Auto 1.01 x 1000/uL Above high normal 4 0 - 1 [facility] RDW RBC Auto-Rto 15.3 % Above high normal 4 11 - 15 [facility] Anion Gap3 SerPl-sCnc 10.0 Normal 4 7 - 17 [facility] BUN/Creat SerPl 47.8 Above high normal 02 4 8 - 23 [facility] Chloride SerPl-sCnc 102.0 mmol/L Normal 12/02/19 2 4 98 - 107 [facility] Creat SerPl-mCnc 0.46 mg/dL Normal 4 0.4 - 1.3 [facility] Glucose SerPl-mCnc 258.0 mg/dL Above high normal 07/ 4 70 - 100 [facility] GFR/BSA.pred SerPlBld [id number] >60.0 mL/min/1.73m2 Normal 4 - [facility] Sodium SerPl-sCnc 139.0 mmol/L Normal 4 136 - 144 [facility] BUN SerPl-mCnc 22.0 mg/dL Above high normal 12/02/19 2 4 6 - 20 [facility] HCO3 SerPl-sCnc 27.0 mmol/L Normal 4 20 - 30 [facility] Calcium SerPl-mCnc 8.7 mg/dL Below low normal 12/01 4 8.8 - 10.2 [facility] Potassium SerPl-sCnc 3.7 mmol/L Normal 02 4 3.3 - 5.3 [facility] Magnesium SerPl-mCnc 1.9 mg/dL Normal 02 4 1.7 - 2.4 [facility] Phosphate SerPl-mCnc 2.7 mg/dL Normal 02 4 2.2 - 4.5 [facility] Imm Granulocytes/leuk NFr Bld Auto 0.6 % Normal 4 0 - 1 [facility] Eosinophil # Bld Auto 0.13 x 1000/uL Normal 07 4 0 - 1 [facility] nRBC/100 WBC Bld Auto-Rto 0.0 % Normal 4 0 - 1 [facility] Neutrophils/leuk NFr Bld Auto 55.6 % Normal 4 39 - 72 [facility] Eosinophil/leuk NFr Bld Auto 2.6 % Normal 4 0 - 5 [facility] Monocytes/leuk NFr Bld Auto 20.4 % Above high normal 4 4 - 12 [facility] Hgb Bld-mCnc 7.4 g/dL Below low normal 4 13.2 - 17.1 [facility] MCV RBC Auto 93.8 fL Normal 4 80 - 100 [facility] Monocytes # Bld Auto 1.01 x 1000/uL Above high normal 4 0 - 1 [facility] Neutrophils # Bld Auto 2.74 x 1000/uL Normal 4 2 - 7.6 [facility] Lymphocytes # Bld Auto 1.0 x 1000/uL Normal 4 0.6 - 3.7 [facility] MCH RBC Qn Auto 28.6 pg Normal 4 27 - 33 [facility] PMV Bld Auto 11.2 fL Normal 4 8 - 12 [facility] RDW RBC Auto-Rto 15.3 % Above high normal 4 11 - 15 [facility] Lymphocytes/leuk NFr Bld Auto 20.2 % Normal 4 17 - 50 [facility] RBC # Bld Auto 2.59 M/uL Below low normal 4 4 - 6 [facility] nRBC # Bld Auto 0.0 x 1000/uL Normal 4 0 - 1 [facility] Basophils/leuk NFr Bld Auto 0.6 % Normal 4 0 - 1.4 [facility] Platelet # Bld Auto 571.0 x1000/uL Above high normal 0 4 150 - 420 [facility] Basophils # Bld Auto 0.03 x 1000/uL Normal 12/01 4 0 - 1 [facility] Imm Granulocytes # Bld Auto 0.03 x 1000/uL Normal 4 0 - 0.3 [facility] Hct VFr Bld Auto 24.3 % Below low normal 02 4 38.5 - 50 [facility] MCHC RBC Auto-mCnc 30.5 g/dL Below low normal 12/01 4 31 - 36 [facility] WBC # Bld Auto 4.9 x1000/uL Normal 4 4 - 11 [facility] Bacteria # Ur Auto Rare Normal 4 - [facility] Hyaline Casts #/area UrnS 1.0 /LPF Normal 4 0 - 3 [facility] RBC #/area UrnS Auto <1.0 /HPF Normal 02 4 0 - 2 [facility] WBC #/area UrnS Auto 5.0 /HPF Normal 02 4 0 - 5 [facility] Gran Casts #/area UrnS LPF 1.0 /LPF Above high normal 4 - [facility] Squamous #/area UrnS Auto <1.0 /HPF Normal 4 0 - 5 [facility] Ketones Ur Strip.auto-mCnc Trace Abnormal 4 - [facility] Urobilinogen Ur Strip-mCnc 2.0 mg/dL Normal 4 - [facility] Hgb Ur Ql Strip.auto Negative Normal 02 4 - [facility] Color Ur Auto Yellow Normal 4 - [facility] WBC # Ur Strip 2+ Abnormal 4 - [facility] Nitrite Ur Ql Strip.auto Negative Normal 4 - [facility] Bilirub Ur Ql Strip.auto Negative Normal 4 - [facility] Glucose Ur Strip.auto-mCnc Negative Normal 4 - [facility] Sp Gr Ur Refract.auto 1.039 Above high normal 0 4 1.005 - 1.03 [facility] Clarity Ur Refract.auto Clear Normal 4 - [facility] pH Ur Strip.auto 6.0 Normal 4 5.5 - 7.5 [facility] Prot Ur Strip.auto-mCnc Trace Normal 4 - [facility] Procalcitonin SerPl-mCnc 0.09 ng/mL Normal 4 - [facility] Monocytes/leuk NFr Bld Auto 14.7 % Above high normal 4 4 - 12 [facility] Eosinophil/leuk NFr Bld Auto 1.9 % Normal 4 0 - 5 [facility] Hct VFr Bld Auto 25.8 % Below low normal 02 4 38.5 - 50 [facility] MCHC RBC Auto-mCnc 31.4 g/dL Normal 4 31 - 36 [facility] Platelet # Bld Auto 643.0 x1000/uL Above high normal 0 4 150 - 420 [facility] PMV Bld Auto 11.1 fL Normal 4 8 - 12 [facility] Hgb Bld-mCnc 8.1 g/dL Below low normal 4 13.2 - 17.1 [facility] Neutrophils/leuk NFr Bld Auto 65.5 % Normal 4 39 - 72 [facility] MCH RBC Qn Auto 29.1 pg Normal 4 27 - 33 [facility] nRBC/100 WBC Bld Auto-Rto 0.0 % Normal 4 0 - 1 [facility] nRBC # Bld Auto 0.0 x 1000/uL Normal 4 0 - 1 [facility] Lymphocytes/leuk NFr Bld Auto 16.8 % Below low normal 4 17 - 50 [facility] Basophils # Bld Auto 0.02 x 1000/uL Normal 11/30 4 0 - 1 [facility] Neutrophils # Bld Auto 4.24 x 1000/uL Normal 4 2 - 7.6 [facility] Imm Granulocytes/leuk NFr Bld Auto 0.8 % Normal 4 0 - 1 [facility] RDW RBC Auto-Rto 15.3 % Above high normal 4 11 - 15 [facility] RBC # Bld Auto 2.78 M/uL Below low normal 4 4 - 6 [facility] Lymphocytes # Bld Auto 1.09 x 1000/uL Normal 4 0.6 - 3.7 [facility] Monocytes # Bld Auto 0.95 x 1000/uL Normal 11/30 4 0 - 1 [facility] WBC # Bld Auto 6.5 x1000/uL Normal 4 4 - 11 [facility] Basophils/leuk NFr Bld Auto 0.3 % Normal 4 0 - 1.4 [facility] MCV RBC Auto 92.8 fL Normal 4 80 - 100 [facility] Imm Granulocytes # Bld Auto 0.05 x 1000/uL Normal 4 0 - 0.3 [facility] Eosinophil # Bld Auto 0.12 x 1000/uL Normal 07/ 4 0 - 1 [facility] Magnesium SerPl-mCnc 1.9 mg/dL Normal 02 4 1.7 - 2.4 [facility] Phosphate SerPl-mCnc 2.8 mg/dL Normal 02 4 2.2 - 4.5 [facility] Glucose SerPl-mCnc 276.0 mg/dL Above high normal 07 4 70 - 100 [facility] GFR/BSA.pred SerPlBld RRI-VHT-OnCWrh >60.0 mL/min/1.73m2 Normal 4 - [facility] BUN SerPl-mCnc 22.0 mg/dL Above high normal 12/01/19 2 4 6 - 20 [facility] Chloride SerPl-sCnc 104.0 mmol/L Normal 12/01/19 2 4 98 - 107 [facility] Creat SerPl-mCnc 0.46 mg/dL Normal 4 0.4 - 1.3 [facility] HCO3 SerPl-sCnc 27.0 mmol/L Normal 4 20 - 30 [facility] Calcium SerPl-mCnc 8.8 mg/dL Normal 4 8.8 - 10.2 [facility] Potassium SerPl-sCnc 4.3 mmol/L Normal 02 4 3.3 - 5.3 [facility] Anion Gap3 SerPl-sCnc 8.0 Normal 4 7 - 17 [facility] BUN/Creat SerPl 47.8 Above high normal 02 4 8 - 23 [facility] Sodium SerPl-sCnc 139.0 mmol/L Normal 4 136 - 144 [facility] MCH RBC Qn Auto 28.3 pg Normal 4 27 - 33 [facility] nRBC # Bld Auto 0.0 x 1000/uL Normal 4 0 - 1 [facility] WBC # Bld Auto 8.3 x1000/uL Normal 4 4 - 11 [facility] nRBC/100 WBC Bld Auto-Rto 0.0 % Normal 4 0 - 1 [facility] Monocytes # Bld Auto 0.81 x 1000/uL Normal 11/30 4 0 - 1 [facility] Lymphocytes # Bld Auto 1.24 x 1000/uL Normal 4 0.6 - 3.7 [facility] Neutrophils # Bld Auto 6.11 x 1000/uL Normal 4 2 - 7.6 [facility] PMV Bld Auto 11.3 fL Normal 4 8 - 12 [facility] Lymphocytes/leuk NFr Bld Auto 15.0 % Below low normal 4 17 - 50 [facility] MCV RBC Auto 93.8 fL Normal 4 80 - 100 [facility] Hgb Bld-mCnc 7.7 g/dL Below low normal 4 13.2 - 17.1 [facility] Eosinophil/leuk NFr Bld Auto 0.1 % Normal 4 0 - 5 [facility] Imm Granulocytes # Bld Auto 0.06 x 1000/uL Normal 4 0 - 0.3 [facility] Platelet # Bld Auto 570.0 x1000/uL Above high normal 0 4 150 - 420 [facility] Basophils # Bld Auto 0.02 x 1000/uL Normal 11/30 4 0 - 1 [facility] MCHC RBC Auto-mCnc 30.2 g/dL Below low normal 11/30 4 31 - 36 [facility] Neutrophils/leuk NFr Bld Auto 74.2 % Above high normal 4 39 - 72 [facility] Eosinophil # Bld Auto 0.01 x 1000/uL Normal 07 4 0 - 1 [facility] Basophils/leuk NFr Bld Auto 0.2 % Normal 4 0 - 1.4 [facility] RDW RBC Auto-Rto 15.3 % Above high normal 4 11 - 15 [facility] Hct VFr Bld Auto 25.5 % Below low normal 02 4 38.5 - 50 [facility] Monocytes/leuk NFr Bld Auto 9.8 % Normal 4 4 - 12 [facility] Imm Granulocytes/leuk NFr Bld Auto 0.7 % Normal 4 0 - 1 [facility] RBC # Bld Auto 2.72 M/uL Below low normal 4 4 - 6 [facility] Ammonia Plas-sCnc 42.0 umol/L Above high normal 11/29 4 11 - 35 [facility] ALT SerPl w/o P-5'-P-cCnc 30.0 U/L Normal 4 9 - 59 [facility] AST SerPl w P-5'-P-cCnc 18.0 U/L Normal 4 10 - 35 [facility] Bilirub Direct SerPl-mCnc <0.2 mg/dL Normal 4 - [facility] AST/ALT SerPl-cRto 0.6 Normal 4 - [facility] ALP SerPl-cCnc 138.0 U/L Above high normal 11/30/19 2 4 9 - 122 [facility] Bilirub SerPl-mCnc 0.3 mg/dL Normal 4 - [facility] aPTT PPP 35.8 seconds Above high normal 4 23 - 31.4 [facility] INR PPP 1.01 Normal 4 0.86 - 1.12 [facility] Prothrombin time 11.2 seconds Normal 4 9.6 - 12.3 [facility] BKR SPECIMEN EXPIRATION DATE AND TIME 12/02/2023 23:59 Normal 4 [facility] ABO GROUPING O Normal 4 [facility] RH TYPE POS Normal 4 [facility] ANTIBODY SCREEN NEG Normal 11/30/19 2 4 [facility] Potassium SerPl-sCnc 4.0 mmol/L Normal 02 4 3.3 - 5.3 [facility] BUN SerPl-mCnc 22.0 mg/dL Above high normal 11/30/19 2 4 6 - 20 [facility] Creat SerPl-mCnc 0.58 mg/dL Normal 4 0.4 - 1.3 [facility] Calcium SerPl-mCnc 9.1 mg/dL Normal 4 8.8 - 10.2 [facility] Sodium SerPl-sCnc 142.0 mmol/L Normal 4 136 - 144 [facility] BUN/Creat SerPl 37.9 Above high normal 02 4 8 - 23 [facility] Anion Gap3 SerPl-sCnc 9.0 Normal 4 7 - 17 [facility] HCO3 SerPl-sCnc 26.0 mmol/L Normal 4 20 - 30 [facility] GFR/BSA.pred SerPlBld VCA-OWO-RtSYup >60.0 mL/min/1.73m2 Normal 4 - [facility] Chloride SerPl-sCnc 107.0 mmol/L Normal 11/30/19 2 4 98 - 107 [facility] Glucose SerPl-mCnc 213.0 mg/dL Above high normal 4 70 - 100 [facility] Phosphate SerPl-mCnc 3.1 mg/dL Normal 02 4 2.2 - 4.5 [facility] Magnesium SerPl-mCnc 1.8 mg/dL Normal 02 4 1.7 - 2.4 [facility] MCH RBC Qn Auto 28.7 pg Normal 4 27 - 33 [facility] Lymphocytes # Bld Auto 1.51 x 1000/uL Normal 4 0.6 - 3.7 [facility] Monocytes/leuk NFr Bld Auto 9.7 % Normal 4 4 - 12 [facility] RDW RBC Auto-Rto 15.3 % Above high normal 4 11 - 15 [facility] Platelet # Bld Auto 575.0 x1000/uL Above high normal 0 4 150 - 420 [facility] Basophils/leuk NFr Bld Auto 0.2 % Normal 4 0 - 1.4 [facility] nRBC/100 WBC Bld Auto-Rto 0.0 % Normal 4 0 - 1 [facility] Eosinophil # Bld Auto 0.11 x 1000/uL Normal 07/0 4 0 - 1 [facility] Hct VFr Bld Auto 25.4 % Below low normal 02 4 38.5 - 50 [facility] MCHC RBC Auto-mCnc 30.7 g/dL Below low normal 11/29 4 31 - 36 [facility] Imm Granulocytes # Bld Auto 0.04 x 1000/uL Normal 4 0 - 0.3 [facility] Hgb Bld-mCnc 7.8 g/dL Below low normal 4 13.2 - 17.1 [facility] PMV Bld Auto 11.2 fL Normal 4 8 - 12 [facility] Neutrophils/leuk NFr Bld Auto 72.2 % Above high normal 4 39 - 72 [facility] Neutrophils # Bld Auto 6.66 x 1000/uL Normal 4 2 - 7.6 [facility] nRBC # Bld Auto 0.0 x 1000/uL Normal 4 0 - 1 [facility] Monocytes # Bld Auto 0.9 x 1000/uL Normal 4 0 - 1 [facility] WBC # Bld Auto 9.2 x1000/uL Normal 4 4 - 11 [facility] Granulocytes/leuk NFr Bld Auto 0.4 % Normal 4 0 - 1 [facility] RBC # Bld Auto 2.72 M/uL Below low normal 4 4 - 6 [facility] Eosinophil/leuk NFr Bld Auto 1.2 % Normal 4 0 - 5 [facility] Basophils # Bld Auto 0.02 x 1000/uL Normal 11/29 4 0 - 1 [facility] Lymphocytes/leuk NFr Bld Auto 16.3 % Below low normal 4 17 - 50 [facility] MCV RBC Auto 93.4 fL Normal 4 80 - 100 [facility] Path Interp Bld-Imp The low molecular weight heparin level is BELOW therapeutic range for both q12 \T\ q24 dosing. Normal 4 [facility] UFH PPP Senior Technical Editor-aCnc 0.29 u/mL Normal 4 - [facility] HCO3 SerPl-sCnc 26.0 mmol/L Normal 4 20 - 30 [facility] Sodium SerPl-sCnc 142.0 mmol/L Normal 4 136 - 144 [facility] Creat SerPl-mCnc 0.52 mg/dL Normal 4 0.4 - 1.3 [facility] BUN SerPl-mCnc 17.0 mg/dL Normal 4 6 - 20 [facility] Anion Gap3 SerPl-sCnc 10.0 Normal 4 7 - 17 [facility] Calcium SerPl-mCnc 9.4 mg/dL Normal 4 8.8 - 10.2 [facility] BUN/Creat SerPl 32.7 Above high normal 02 4 8 - 23 [facility] GFR/BSA.pred SerPlBld PBQ-NGL-XvFTvw >60.0 mL/min/1.73m2 Normal 4 - [facility] Potassium SerPl-sCnc 4.4 mmol/L Normal 02 4 3.3 - 5.3 [facility] Chloride SerPl-sCnc 106.0 mmol/L Normal 11/29/19 2 4 98 - 107 [facility] Glucose SerPl-mCnc 204.0 mg/dL Above high normal 4 70 - 100 [facility] Magnesium SerPl-mCnc 1.8 mg/dL Normal 02 4 1.7 - 2.4 [facility] Phosphate SerPl-mCnc 3.3 mg/dL Normal 02 4 2.2 - 4.5 [facility] nRBC/100 WBC Bld Auto-Rto 0.0 % Normal 4 0 - 1 [facility] Basophils/leuk NFr Bld Auto 0.4 % Normal 4 0 - 1.4 [facility] Monocytes/leuk NFr Bld Auto 12.4 % Above high normal 4 4 - 12 [facility] Hgb Bld-mCnc 8.0 g/dL Below low normal 4 13.2 - 17.1 [facility] MCH RBC Qn Auto 28.7 pg Normal 4 27 - 33 [facility] Neutrophils # Bld Auto 5.8 x 1000/uL Normal 4 2 - 7.6 [facility] MCV RBC Auto 92.8 fL Normal 4 80 - 100 [facility] RBC # Bld Auto 2.79 M/uL Below low normal 4 4 - 6 [facility] nRBC # Bld Auto 0.0 x 1000/uL Normal 4 0 - 1 [facility] Basophils # Bld Auto 0.04 x 1000/uL Normal 11/28 4 0 - 1 [facility] WBC # Bld Auto 9.2 x1000/uL Normal 4 4 - 11 [facility] Eosinophil # Bld Auto 0.09 x 1000/uL Normal 07/ 4 0 - 1 [facility] PMV Bld Auto 11.5 fL Normal 4 8 - 12 [facility] Lymphocytes # Bld Auto 2.1 x 1000/uL Normal 4 0.6 - 3.7 [facility] Lymphocytes/leuk NFr Bld Auto 22.7 % Normal 4 17 - 50 [facility] Platelet # Bld Auto 586.0 x1000/uL Above high normal 0 4 150 - 420 [facility] RDW RBC Auto-Rto 15.1 % Above high normal 4 11 - 15 [facility] Monocytes # Bld Auto 1.15 x 1000/uL Above high normal 4 0 - 1 [facility] Eosinophil/leuk NFr Bld Auto 1.0 % Normal 4 0 - 5 [facility] Hct VFr Bld Auto 25.9 % Below low normal 02 4 38.5 - 50 [facility] Neutrophils/leuk NFr Bld Auto 62.9 % Normal 4 39 - 72 [facility] Granulocytes/leuk NFr Bld Auto 0.6 % Normal 4 0 - 1 [facility] Granulocytes # Bld Auto 0.06 x 1000/uL Normal 4 0 - 0.3 [facility] MCHC RBC Auto-mCnc 30.9 g/dL Below low normal 11/28 4 31 - 36 [facility] Eosinophil # Bld Auto 0.08 x 1000/uL Normal 07/ 4 0 - 1 [facility] MCV RBC Auto 91.1 fL Normal 4 80 - 100 [facility] Monocytes # Bld Auto 1.06 x 1000/uL Above high normal 4 0 - 1 [facility] MCH RBC Qn Auto 29.2 pg Normal 4 27 - 33 [facility] Monocytes/leuk NFr Bld Auto 11.4 % Normal 4 4 - 12 [facility] Hct VFr Bld Auto 25.6 % Below low normal 02 4 38.5 - 50 [facility] Hgb Bld-mCnc 8.2 g/dL Below low normal 4 13.2 - 17.1 [facility] PMV Bld Auto 11.4 fL Normal 4 8 - 12 [facility] Lymphocytes/leuk NFr Bld Auto 15.6 % Below low normal 4 17 - 50 [facility] nRBC # Bld Auto 0.0 x 1000/uL Normal 4 0 - 1 [facility] RBC # Bld Auto 2.81 M/uL Below low normal 4 4 - 6 [facility] Platelet # Bld Auto 576.0 x1000/uL Above high normal 0 4 150 - 420 [facility] nRBC/100 WBC Bld Auto-Rto 0.0 % Normal 4 0 - 1 [facility] Lymphocytes # Bld Auto 1.45 x 1000/uL Normal 4 0.6 - 3.7 [facility] MCHC RBC Auto-mCnc 32.0 g/dL Normal 4 31 - 36 [facility] WBC # Bld Auto 9.3 x1000/uL Normal 4 4 - 11 [facility] Basophils/leuk NFr Bld Auto 0.4 % Normal 4 0 - 1.4 [facility] RDW RBC Auto-Rto 15.0 % Normal 4 11 - 15 [facility] Eosinophil/leuk NFr Bld Auto 0.9 % Normal 4 0 - 5 [facility] Neutrophils/leuk NFr Bld Auto 71.1 % Normal 4 39 - 72 [facility] Granulocytes # Bld Auto 0.06 x 1000/uL Normal 4 0 - 0.3 [facility] Neutrophils # Bld Auto 6.6 x 1000/uL Normal 4 2 - 7.6 [facility] Basophils # Bld Auto 0.04 x 1000/uL Normal 11/27 4 0 - 1 [facility] Granulocytes/leuk NFr Bld Auto 0.6 % Normal 4 0 - 1 [facility] Monocytes/leuk NFr Bld Auto 10.8 % Normal 4 4 - 12 [facility] Basophils # Bld Auto 0.04 x 1000/uL Normal 11/27 4 0 - 1 [facility] MCH RBC Qn Auto 28.1 pg Normal 4 27 - 33 [facility] Imm Granulocytes # Bld Auto 0.05 x 1000/uL Normal 4 0 - 0.3 [facility] Eosinophil # Bld Auto 0.09 x 1000/uL Normal 07 4 0 - 1 [facility] Platelet # Bld Auto 555.0 x1000/uL Above high normal 0 4 150 - 420 [facility] Monocytes # Bld Auto 0.88 x 1000/uL Normal 11/27 4 0 - 1 [facility] MCHC RBC Auto-mCnc 30.6 g/dL Below low normal 11/27 4 31 - 36 [facility] nRBC/100 WBC Bld Auto-Rto 0.0 % Normal 4 0 - 1 [facility] Granulocytes/leuk NFr Bld Auto 0.6 % Normal 4 0 - 1 [facility] Eosinophil/leuk NFr Bld Auto 1.1 % Normal 4 0 - 5 [facility] Lymphocytes/leuk NFr Bld Auto 17.4 % Normal 4 17 - 50 [facility] PMV Bld Auto 11.4 fL Normal 4 8 - 12 [facility] Hgb Bld-mCnc 8.2 g/dL Below low normal 4 13.2 - 17.1 [facility] Neutrophils/leuk NFr Bld Auto 69.6 % Normal 4 39 - 72 [facility] H[facility] VFr Bld Auto 26.8 % Below low normal 02 4 38.5 - 50 [facility] nRBC # Bld Auto 0.0 x 1000/uL Normal 4 0 - 1 [facility] MCV RBC Auto 91.8 fL Normal 4 80 - 100 [facility] RDW RBC Auto-Rto 15.5 % Above high normal 4 11 - 15 [facility] Basophils/leuk NFr Bld Auto 0.5 % Normal 4 0 - 1.4 [facility] Neutrophils # Bld Auto 5.69 x 1000/uL Normal 4 2 - 7.6 [facility] RBC # Bld Auto 2.92 M/uL Below low normal 4 4 - 6 [facility] WBC # Bld Auto 8.2 x1000/uL Normal 4 4 - 11 [facility] Lymphocytes # Bld Auto 1.42 x 1000/uL Normal 4 0.6 - 3.7 [facility] Phosphate SerPl-mCnc 3.5 mg/dL Normal 02 4 2.2 - 4.5 [facility] Magnesium SerPl-mCnc 1.8 mg/dL Normal 02 4 1.7 - 2.4 [facility] BUN SerPl-mCnc 17.0 mg/dL Normal 4 6 - 20 [facility] Sodium SerPl-sCnc 142.0 mmol/L Normal 4 136 - 144 [facility] Calcium SerPl-mCnc 9.3 mg/dL Normal 4 8.8 - 10.2 [facility] HCO3 SerPl-sCnc 27.0 mmol/L Normal 4 20 - 30 [facility] GFR/BSA.pred SerPlBld NLS-GKO-BkFXqp >60.0 mL/min/1.73m2 Normal 4 - [facility] Anion Gap3 SerPl-sCnc 10.0 Normal 4 7 - 17 [facility] Glucose SerPl-mCnc 166.0 mg/dL Above high normal 4 70 - 100 [facility] Creat SerPl-mCnc 0.49 mg/dL Normal 4 0.4 - 1.3 [facility] Potassium SerPl-sCnc 4.0 mmol/L Normal 02 4 3.3 - 5.3 [facility] BUN/Creat SerPl 34.7 Above high normal 02 4 8 - 23 [facility] Chloride SerPl-sCnc 105.0 mmol/L Normal 11/28/19 2 4 98 - 107 [facility] nRBC # Bld Auto 0.0 x 1000/uL Normal 4 0 - 1 [facility] RDW RBC Auto-Rto 15.4 % Above high normal 4 11 - 15 [facility] PMV Bld Auto 11.2 fL Normal 4 8 - 12 [facility] Granulocytes # Bld Auto 0.04 x 1000/uL Normal 4 0 - 0.3 [facility] Neutrophils/leuk NFr Bld Auto 59.3 % Normal 4 39 - 72 [facility] RBC # Bld Auto 2.65 M/uL Below low normal 4 4 - 6 [facility] MCV RBC Auto 93.2 fL Normal 4 80 - 100 [facility] Neutrophils # Bld Auto 4.25 x 1000/uL Normal 4 2 - 7.6 [facility] Basophils/leuk NFr Bld Auto 0.6 % Normal 4 0 - 1.4 [facility] Platelet # Bld Auto 505.0 x1000/uL Above high normal 0 4 150 - 420 [facility] Hgb Bld-mCnc 7.7 g/dL Below low normal 4 13.2 - 17.1 [facility] Monocytes # Bld Auto 0.8 x 1000/uL Normal 4 0 - 1 [facility] Monocytes/leuk NFr Bld Auto 11.2 % Normal 4 4 - 12 [facility] WBC # Bld Auto 7.2 x1000/uL Normal 4 4 - 11 [facility] nRBC/100 WBC Bld Auto-Rto 0.0 % Normal 4 0 - 1 [facility] MCHC RBC Auto-mCnc 31.2 g/dL Normal 4 31 - 36 [facility] Lymphocytes # Bld Auto 1.65 x 1000/uL Normal 4 0.6 - 3.7 [facility] Lymphocytes/leuk NFr Bld Auto 23.1 % Normal 4 17 - 50 [facility] Eosinophil/leuk NFr Bld Auto 5.2 % Above high normal 4 0 - 5 [facility] MCH RBC Qn Auto 29.1 pg Normal 4 27 - 33 [facility] Granulocytes/leuk NFr Bld Auto 0.6 % Normal 4 0 - 1 [facility] Hct VFr Bld Auto 24.7 % Below low normal 02 4 38.5 - 50 [facility] Basophils # Bld Auto 0.04 x 1000/uL Normal 11/26 4 0 - 1 [facility] Eosinophil # Bld Auto 0.37 x 1000/uL Normal 07/0 4 0 - 1 [facility] Path Interp Bld-Imp The low molecular weight heparin level is BELOW therapeutic range for both q12 \T\ q24 dosing. Normal 4 [facility] UFH PPP Senior Technical Editor-aCnc 0.26 u/mL Normal 4 - [facility] nRBC/100 WBC Bld Auto-Rto 0.0 % Normal 4 0 - 1 [facility] Basophils/leuk NFr Bld Auto 0.4 % Normal 4 0 - 1.4 [facility] nRBC # Bld Auto 0.0 x 1000/uL Normal 4 0 - 1 [facility] Neutrophils/leuk NFr Bld Auto 57.1 % Normal 4 39 - 72 [facility] Platelet # Bld Auto 481.0 x1000/uL Above high normal 0 4 150 - 420 [facility] Imm Granulocytes # Bld Auto 0.04 x 1000/uL Normal 4 0 - 0.3 [facility] Basophils # Bld Auto 0.03 x 1000/uL Normal 11/26 4 0 - 1 [facility] Hct VFr Bld Auto 22.3 % Below low normal 02 4 38.5 - 50 [facility] Imm Granulocytes/leuk NFr Bld Auto 0.5 % Normal 4 0 - 1 [facility] Monocytes/leuk NFr Bld Auto 11.7 % Normal 4 4 - 12 [facility] MCH RBC Qn Auto 28.7 pg Normal 4 27 - 33 [facility] RBC # Bld Auto 2.37 M/uL Below low normal 4 4 - 6 [facility] MCV RBC Auto 94.1 fL Normal 4 80 - 100 [facility] Lymphocytes/leuk NFr Bld Auto 26.7 % Normal 4 17 - 50 [facility] Neutrophils # Bld Auto 4.66 x 1000/uL Normal 4 2 - 7.6 [facility] Lymphocytes # Bld Auto 2.17 x 1000/uL Normal 4 0.6 - 3.7 [facility] Monocytes # Bld Auto 0.95 x 1000/uL Normal 11/26 4 0 - 1 [facility] MCHC RBC Auto-mCnc 30.5 g/dL Below low normal 11/26 4 31 - 36 [facility] WBC # Bld Auto 8.1 x1000/uL Normal 4 4 - 11 [facility] Eosinophil/leuk NFr Bld Auto 3.6 % Normal 4 0 - 5 [facility] Hgb Bld-mCnc 6.8 g/dL Below low normal 4 13.2 - 17.1 [facility] PMV Bld Auto 11.3 fL Normal 4 8 - 12 [facility] Eosinophil # Bld Auto 0.29 x 1000/uL Normal 4 0 - 1 [facility] RDW RBC Auto-Rto 14.4 % Normal 4 11 - 15 [facility] B[facility] SPECIMEN EXPIRATION DATE AND TIME 11/29/2023 23:59 Normal 4 [facility] ANTIBODY SCREEN NEG Normal 11/27/19 2 4 [facility] RH TYPE POS Normal 4 [facility] ABO GROUPING O Normal 4 [facility] Magnesium SerPl-mCnc 1.9 mg/dL Normal 02 4 1.7 - 2.4 [facility] Anion Gap3 SerPl-sCnc 8.0 Normal 4 7 - 17 [facility] Chloride SerPl-sCnc 107.0 mmol/L Normal 11/27/19 2 4 98 - 107 [facility] Potassium SerPl-sCnc 3.8 mmol/L Normal 02 4 3.3 - 5.3 [facility] BUN SerPl-mCnc 20.0 mg/dL Normal 4 6 - 20 [facility] Sodium SerPl-sCnc 143.0 mmol/L Normal 4 136 - 144 [facility] HCO3 SerPl-sCnc 28.0 mmol/L Normal 4 20 - 30 [facility] Creat SerPl-mCnc 0.5 mg/dL Normal 4 0.4 - 1.3 [facility] Calcium SerPl-mCnc 8.8 mg/dL Normal 4 8.8 - 10.2 [facility] Glucose SerPl-mCnc 125.0 mg/dL Above high normal 4 70 - 100 [facility] GFR/BSA.pred SerPlBld [id number]-[id number] >60.0 mL/min/1.73m2 Normal 4 - [facility] BUN/Creat SerPl 40.0 Above high normal 02 4 8 - 23 [facility] Phosphate SerPl-mCnc 3.6 mg/dL Normal 02 4 2.2 - 4.5 [facility] RBC # Bld Auto 2.36 M/uL Below low normal 4 4 - 6 [facility] nRBC # Bld Auto 0.0 x 1000/uL Normal 4 0 - 1 [facility] Lymphocytes/leuk NFr Bld Auto 23.1 % Normal 4 17 - 50 [facility] nRBC/100 WBC Bld Auto-Rto 0.0 % Normal 4 0 - 1 [facility] Monocytes # Bld Auto 0.9 x 1000/uL Normal 4 0 - 1 [facility] Eosinophil # Bld Auto 0.28 x 1000/uL Normal 07 4 0 - 1 [facility] MCH RBC Qn Auto 28.8 pg Normal 4 27 - 33 [facility] Lymphocytes # Bld Auto 1.72 x 1000/uL Normal 4 0.6 - 3.7 [facility] Granulocytes/leuk NFr Bld Auto 0.5 % Normal 4 0 - 1 [facility] RDW RBC Auto-Rto 14.2 % Normal 4 11 - 15 [facility] Basophils # Bld Auto 0.04 x 1000/uL Normal 11/26 4 0 - 1 [facility] WBC # Bld Auto 7.5 x1000/uL Normal 4 4 - 11 [facility] PMV Bld Auto 11.3 fL Normal 4 8 - 12 [facility] Hct VFr Bld Auto 22.5 % Below low normal 02 4 38.5 - 50 [facility] Imm Granulocytes # Bld Auto 0.04 x 1000/uL Normal 4 0 - 0.3 [facility] Monocytes/leuk NFr Bld Auto 12.1 % Above high normal 4 4 - 12 [facility] Platelet # Bld Auto 471.0 x1000/uL Above high normal 0 4 150 - 420 [facility] Neutrophils/leuk NFr Bld Auto 60.0 % Normal 4 39 - 72 [facility] Eosinophil/leuk NFr Bld Auto 3.8 % Normal 4 0 - 5 [facility] MCV RBC Auto 95.3 fL Normal 4 80 - 100 [facility] Hgb Bld-mCnc 6.8 g/dL Below low normal 4 13.2 - 17.1 [facility] MCHC RBC Auto-mCnc 30.2 g/dL Below low normal 11/26 4 31 - 36 [facility] Basophils/leuk NFr Bld Auto 0.5 % Normal 4 0 - 1.4 [facility] Neutrophils # Bld Auto 4.48 x 1000/uL Normal 4 2 - 7.6 [facility] Prealb SerPl Neph-mCnc 13.7 mg/dL Below low normal 4 20 - 40 [facility] CRP SerPl HS-mCnc 93.3 mg/L Above high normal 11/25 4 - [facility] HCO3 SerPl-sCnc 29.0 mmol/L Normal 4 20 - 30 [facility] Calcium SerPl-mCnc 9.4 mg/dL Normal 4 8.8 - 10.2 [facility] Anion Gap3 SerPl-sCnc 9.0 Normal 4 7 - 17 [facility] BUN/Creat SerPl 39.3 Above high normal 02 4 8 - 23 [facility] Potassium SerPl-sCnc 3.5 mmol/L Normal 02 4 3.3 - 5.3 [facility] GFR/BSA.pred SerPlBld [id number]-[id number] >60.0 mL/min/1.73m2 Normal 4 - [facility] Sodium SerPl-sCnc 146.0 mmol/L Above high normal 11/25 4 136 - 144 [facility] Glucose SerPl-mCnc 96.0 mg/dL Normal 4 70 - 100 [facility] Creat SerPl-mCnc 0.56 mg/dL Normal 4 0.4 - 1.3 [facility] BUN SerPl-mCnc 22.0 mg/dL Above high normal 11/26/19 2 4 6 - 20 [facility] Chloride SerPl-sCnc 108.0 mmol/L Above high normal 4 98 - 107 [facility] Magnesium SerPl-mCnc 2.0 mg/dL Normal 02 4 1.7 - 2.4 [facility] Phosphate SerPl-mCnc 2.7 mg/dL Normal 02 4 2.2 - 4.5 [facility] PMV Bld Auto 11.3 fL Normal 4 8 - 12 [facility] Neutrophils/leuk NFr Bld Auto 71.1 % Normal 4 39 - 72 [facility] Monocytes # Bld Auto 1.22 x 1000/uL Above high normal 4 0 - 1 [facility] Monocytes/leuk NFr Bld Auto 11.1 % Normal 4 4 - 12 [facility] Lymphocytes # Bld Auto 1.78 x 1000/uL Normal 4 0.6 - 3.7 [facility] Eosinophil/leuk NFr Bld Auto 0.7 % Normal 4 0 - 5 [facility] RDW RBC Auto-Rto 14.3 % Normal 4 11 - 15 [facility] Basophils # Bld Auto 0.04 x 1000/uL Normal 11/25 4 0 - 1 [facility] RBC # Bld Auto 2.64 M/uL Below low normal 4 4 - 6 [facility] MCHC RBC Auto-mCnc 30.6 g/dL Below low normal 11/25 4 31 - 36 [facility] Neutrophils # Bld Auto 7.83 x 1000/uL Above high normal 4 2 - 7.6 [facility] Lymphocytes/leuk NFr Bld Auto 16.2 % Below low normal 4 17 - 50 [facility] Imm Granulocytes/leuk NFr Bld Auto 0.5 % Normal 4 0 - 1 [facility] Eosinophil # Bld Auto 0.08 x 1000/uL Normal 4 0 - 1 [facility] WBC # Bld Auto 11.0 x1000/uL Normal 4 4 - 11 [facility] nRBC # Bld Auto 0.0 x 1000/uL Normal 4 0 - 1 [facility] Hct VFr Bld Auto 25.2 % Below low normal 02 4 38.5 - 50 [facility] Platelet # Bld Auto 525.0 x1000/uL Above high normal 0 4 150 - 420 [facility] Basophils/leuk NFr Bld Auto 0.4 % Normal 4 0 - 1.4 [facility] nRBC/100 WBC Bld Auto-Rto 0.0 % Normal 4 0 - 1 [facility] MCV RBC Auto 95.5 fL Normal 4 80 - 100 [facility] MCH RBC Qn Auto 29.2 pg Normal 4 27 - 33 [facility] Hgb Bld-mCnc 7.7 g/dL Below low normal 4 13.2 - 17.1 [facility] Imm Granulocytes # Bld Auto 0.06 x 1000/uL Normal 4 0 - 0.3 [facility] Chloride SerPl-sCnc 110.0 mmol/L Above high normal 4 98 - 107 [facility] Glucose SerPl-mCnc 187.0 mg/dL Above high normal 10/28 4 70 - 100 [facility] Calcium SerPl-mCnc 9.1 mg/dL Normal 4 8.8 - 10.2 [facility] GFR/BSA.pred SerPlBld [id number]-[id number] >60.0 mL/min/1.73m2 Normal 4 - [facility] HCO3 SerPl-sCnc 27.0 mmol/L Normal 4 20 - 30 [facility] BUN SerPl-mCnc 22.0 mg/dL Above high normal 11/25/19 2 4 6 - 20 [facility] Potassium SerPl-sCnc 3.5 mmol/L Normal 02 4 3.3 - 5.3 [facility] Anion Gap3 SerPl-sCnc 12.0 Normal 4 7 - 17 [facility] Sodium SerPl-sCnc 149.0 mmol/L Above high normal 11/24 4 136 - 144 [facility] Creat SerPl-mCnc 0.61 mg/dL Normal 4 0.4 - 1.3 [facility] BUN/Creat SerPl 36.1 Above high normal 02 4 8 - 23 [facility] Prothrombin time 11.8 seconds Normal 4 9.6 - 12.3 [facility] aPTT PPP 39.3 seconds Above high normal 4 23 - 31.4 [facility] INR PPP 1.07 Normal 4 0.86 - 1.12 [facility] Phosphate SerPl-mCnc 2.3 mg/dL Normal 02 4 2.2 - 4.5 [facility] BUN SerPl-mCnc 19.0 mg/dL Normal 4 6 - 20 [facility] Anion Gap3 SerPl-sCnc 11.0 Normal 4 7 - 17 [facility] GFR/BSA.pred SerPlBld [id number]-[id number] >60.0 mL/min/1.73m2 Normal 4 - [facility] BUN/Creat SerPl 35.8 Above high normal 02 4 8 - 23 [facility] HCO3 SerPl-sCnc 27.0 mmol/L Normal 4 20 - 30 [facility] Calcium SerPl-mCnc 8.8 mg/dL Normal 4 8.8 - 10.2 [facility] Chloride SerPl-sCnc 110.0 mmol/L Above high normal 4 98 - 107 [facility] Sodium SerPl-sCnc 148.0 mmol/L Above high normal 11/24 4 136 - 144 [facility] Potassium SerPl-sCnc 2.9 mmol/L Below low normal 4 3.3 - 5.3 [facility] Creat SerPl-mCnc 0.53 mg/dL Normal 4 0.4 - 1.3 [facility] Glucose SerPl-mCnc 155.0 mg/dL Above high normal 10/28 4 70 - 100 [facility] Magnesium SerPl-mCnc 1.8 mg/dL Normal 02 4 1.7 - 2.4 [facility] MCH RBC Qn Auto 29.2 pg Normal 4 27 - 33 [facility] Neutrophils # Bld Auto 8.39 x 1000/uL Above high normal 4 2 - 7.6 [facility] Hct VFr Bld Auto 27.3 % Below low normal 02 4 38.5 - 50 [facility] PMV Bld Auto 11.1 fL Normal 4 8 - 12 [facility] Platelet # Bld Auto 536.0 x1000/uL Above high normal 0 4 150 - 420 [facility] Monocytes # Bld Auto 1.24 x 1000/uL Above high normal 4 0 - 1 [facility] WBC # Bld Auto 11.2 x1000/uL Above high normal 02 4 4 - 11 [facility] Lymphocytes/leuk NFr Bld Auto 12.9 % Below low normal 4 17 - 50 [facility] RBC # Bld Auto 2.91 M/uL Below low normal 4 4 - 6 [facility] Imm Granulocytes/leuk NFr Bld Auto 0.6 % Normal 4 0 - 1 [facility] Eosinophil # Bld Auto 0.0 x 1000/uL Normal 11/24 4 0 - 1 [facility] Lymphocytes # Bld Auto 1.44 x 1000/uL Normal 4 0.6 - 3.7 [facility] Neutrophils/leuk NFr Bld Auto 75.0 % Above high normal 4 39 - 72 [facility] nRBC # Bld Auto 0.0 x 1000/uL Normal 4 0 - 1 [facility] MCHC RBC Auto-mCnc 31.1 g/dL Normal 4 31 - 36 [facility] Hgb Bld-mCnc 8.5 g/dL Below low normal 4 13.2 - 17.1 [facility] MCV RBC Auto 93.8 fL Normal 4 80 - 100 [facility] RDW RBC Auto-Rto 14.0 % Normal 4 11 - 15 [facility] nRBC/100 WBC Bld Auto-Rto 0.0 % Normal 4 0 - 1 [facility] Eosinophil/leuk NFr Bld Auto 0.0 % Normal 4 0 - 5 [facility] Basophils/leuk NFr Bld Auto 0.4 % Normal 4 0 - 1.4 [facility] Imm Granulocytes # Bld Auto 0.07 x 1000/uL Normal 4 0 - 0.3 [facility] Monocytes/leuk NFr Bld Auto 11.1 % Normal 4 4 - 12 [facility] Basophils # Bld Auto 0.04 x 1000/uL Normal 11/24 4 0 - 1 [facility] Procalcitonin SerPl-mCnc 0.27 ng/mL Above high normal 4 - [facility] Path Interp Bld-Imp The low molecular weight heparin level is BELOW therapeutic range for both q12 \T\ q24 dosing. Normal 4 [facility] UFH PPP Senior Technical Editor-aCnc 0.14 u/mL Normal 4 - [facility] WBC #/area UrnS Auto 13.0 /HPF Above high normal 4 0 - 5 [facility] Squamous #/area UrnS Auto <1.0 /HPF Normal 4 0 - 5 [facility] RBC #/area UrnS Auto 119.0 /HPF Above high normal 4 0 - 2 [facility] Trans Cells #/area UrnS HPF <1.0 /HPF Above high normal 4 - [facility] Bacteria # Ur Auto Rare Normal 4 - [facility] Prot Ur Strip.auto-mCnc 1+ Abnormal 4 - [facility] pH Ur Strip.auto 6.0 Normal 4 5.5 - 7.5 [facility] Color Ur Auto Yellow Normal 4 - [facility] Bilirub Ur Ql Strip.auto Negative Normal 4 - [facility] WBC # Ur Strip 4+ Abnormal 4 - [facility] Ketones Ur Strip.auto-mCnc 1+ Abnormal 4 - [facility] Sp Gr Ur Refract.auto 1.029 Normal 4 1.005 - 1.03 [facility] Glucose Ur Strip.auto-mCnc Trace Abnormal 4 - [facility] Urobilinogen Ur Strip-mCnc 2.0 mg/dL Normal 4 - [facility] Hgb Ur Ql Strip.auto 1+ Abnormal 02 4 - [facility] Clarity Ur Refract.auto Cloudy Abnormal 4 - [facility] Nitrite Ur Ql Strip.auto Negative Normal 4 - [facility] BKR SPECIMEN EXPIRATION DATE AND TIME 11/27/2023 23:59 Normal 4 [facility] ABO GROUPING O Normal 4 [facility] RH TYPE POS Normal 4 [facility] ANTIBODY SCREEN NEG Normal 11/24/19 2 4 [facility] MCV RBC Auto 91.3 fL Normal 4 80 - 100 [facility] Eosinophil # Bld Auto 0.01 x 1000/uL Normal 10/27 4 0 - 1 [facility] Lymphocytes/leuk NFr Bld Auto 17.1 % Normal 4 17 - 50 [facility] Imm Granulocytes/leuk NFr Bld Auto 0.6 % Normal 4 0 - 1 [facility] MCH RBC Qn Auto 29.2 pg Normal 4 27 - 33 [facility] Monocytes/leuk NFr Bld Auto 11.1 % Normal 4 4 - 12 [facility] Eosinophil/leuk NFr Bld Auto 0.1 % Normal 4 0 - 5 [facility] Lymphocytes # Bld Auto 1.84 x 1000/uL Normal 4 0.6 - 3.7 [facility] WBC # Bld Auto 10.8 x1000/uL Normal 4 4 - 11 [facility] MCHC RBC Auto-mCnc 31.9 g/dL Normal 4 31 - 36 [facility] nRBC/100 WBC Bld Auto-Rto 0.0 % Normal 4 0 - 1 [facility] Basophils # Bld Auto 0.04 x 1000/uL Normal 11/23 4 0 - 1 [facility] Neutrophils # Bld Auto 7.63 x 1000/uL Above high normal 4 2 - 7.6 [facility] Platelet # Bld Auto 556.0 x1000/uL Above high normal 0 4 150 - 420 [facility] RBC # Bld Auto 3.12 M/uL Below low normal 4 4 - 6 [facility] Basophils/leuk NFr Bld Auto 0.4 % Normal 4 0 - 1.4 [facility] PMV Bld Auto 10.6 fL Normal 4 8 - 12 [facility] nRBC # Bld Auto 0.0 x 1000/uL Normal 4 0 - 1 [facility] Monocytes # Bld Auto 1.2 x 1000/uL Above high normal 0 4 0 - 1 [facility] RDW RBC Auto-Rto 13.7 % Normal 4 11 - 15 [facility] Imm Granulocytes # Bld Auto 0.06 x 1000/uL Normal 4 0 - 0.3 [facility] Neutrophils/leuk NFr Bld Auto 70.7 % Normal 4 39 - 72 [facility] Hct VFr Bld Auto 28.5 % Below low normal 02 4 38.5 - 50 [facility] Hgb Bld-mCnc 9.1 g/dL Below low normal 4 13.2 - 17.1 [facility] Creat SerPl-mCnc 0.6 mg/dL Normal 4 0.4 - 1.3 [facility] GFR/BSA.pred SerPlBld DHO-JPJ-[id number] >60.0 mL/min/1.73m2 Normal 4 - [facility] Calcium SerPl-mCnc 9.6 mg/dL Normal 4 8.8 - 10.2 [facility] Sodium SerPl-sCnc 146.0 mmol/L Above high normal 11/23 4 136 - 144 [facility] BUN/Creat SerPl 30.0 Above high normal 02 4 8 - 23 [facility] BUN SerPl-mCnc 18.0 mg/dL Normal 4 6 - 20 [facility] Glucose SerPl-mCnc 181.0 mg/dL Above high normal 10/27 4 70 - 100 [facility] HCO3 SerPl-sCnc 27.0 mmol/L Normal 4 20 - 30 [facility] Potassium SerPl-sCnc 3.1 mmol/L Below low normal 4 3.3 - 5.3 [facility] Chloride SerPl-sCnc 108.0 mmol/L Above high normal 4 98 - 107 [facility] Anion Gap3 SerPl-sCnc 11.0 Normal 4 7 - 17 [facility] Phosphate SerPl-mCnc 2.2 mg/dL Normal 02 4 2.2 - 4.5 [facility] Magnesium SerPl-mCnc 1.8 mg/dL Normal 02 4 1.7 - 2.4 [facility] BKR RH TYPE POS Normal 4 [facility] SPECIMEN EXPIRATION DATE AND TIME 11/26/2023 23:59 Normal 4 [facility] ANTIBODY SCREEN NEG Normal 11/23/19 2 4 [facility] ABO GROUPING O Normal 4 [facility] HCO3 std BldA-sCnc 31.7 mmol/L Above high normal 10/27 4 21 - 28 [facility] FIO2 (ARTERIAL BG [place] QUESTION) 40.0 % Normal 4 [facility] pH BldA 7.42 units Normal 4 7.35 - 7.45 [facility] TEMPERATURE (ARTERIAL BG [place] QUESTION) 99.5 Fahrenheit Normal 4 [facility] Base excess std BldA Calc-sCnc 7.0 mmol/L Above high normal 4 - [facility] VENT MODE ([facility]TER[facility] BG [place] QUESTION) PSV Normal 4 [facility] OXYGEN MODE (ARTER[facility] BG [place] QUESTION) Ventilator Normal 4 [facility] ACTUAL RESPIRATORY RATE (ARTERIAL BG [place] QUESTION) 14.0 breaths/min Normal 4 [facility] pO2 BldA 140.0 mmHg Above high normal 4 83 - 108 [facility] END TIDAL CO2/TCOM (ARTERIAL BG [place] QUESTION) 48.0 mmol/L Normal 4 [facility] SaO2 % BldA 99.0 % Above high normal 4 94 - 98 [facility] pCO2 BldA 50.0 mmHg Above high normal 4 32 - 48 [facility] SP02 (ARTERIAL BG [place] QUESTION) 97.0 % Normal 4 [facility] pH BldA 7.6 units Critically high 4 7.35 - 7.45 [facility] HCO3 std BldA-sCnc 30.0 mmol/L Above high normal 10/27 4 21 - 28 [facility] OXYGEN MODE (ARTERIAL BG [place] QUESTION) Venturi Mask Normal 4 [facility] END TIDAL CO2/TCOM (ARTERIAL BG [place] QUESTION) 30.0 mmol/L Normal 4 [facility] FIO2 (ARTERIAL BG [place] QUESTION) 40.0 % Normal 4 [facility] Base excess std BldA Calc-sCnc 8.0 mmol/L Above high normal 4 - [facility] VENT SETTINGS (ARTERIAL BG [place] QUESTION) PEEP Normal 4 [facility] pCO2 BldA 30.0 mmHg Below low normal 4 32 - 48 [facility] SaO2 % BldA 99.0 % Above high normal 4 94 - 98 [facility] TEMPERATURE (ARTERIAL BG [place] QUESTION) 99.5 Fahrenheit Normal 4 [facility] pO2 BldA 134.0 mmHg Above high normal 4 83 - 108 [facility] SP02 (ARTERIAL BG [place] QUESTION) 97.0 % Normal 4 [facility] ACTUAL RESPIRATORY RATE (ARTERIAL BG [place] QUESTION) 18.0 breaths/min Normal 4 [facility] SaO2 % BldA 100.0 % Above high normal 4 94 - 98 [facility] pH BldA 7.44 units Normal 4 7.35 - 7.45 [facility] TEMPERATURE (ARTERIAL BG [place] QUESTION) 99.0 Fahrenheit Normal 4 [facility] HCO3 std BldA-sCnc 29.6 mmol/L Above high normal 10/27 4 21 - 28 [facility] pCO2 BldA 44.0 mmHg Normal 4 32 - 48 [facility] END TIDAL CO2/TCOM (ARTERIAL BG [place] QUESTION) 43.0 mmol/L Normal 4 [facility] OXYGEN MODE (ARTERIAL BG [place] QUESTION) Ventilator Normal 4 [facility] Base excess std BldA Calc-sCnc 5.0 mmol/L Above high normal 4 - [facility] FIO2 (ARTERIAL BG [place] QUESTION) 100.0 % Normal 4 [facility] SP02 (ARTERIAL BG [place] QUESTION) 100.0 % Normal 4 [facility] pO2 BldA 216.0 mmHg Above high normal 4 83 - 108 [facility] ACTUAL RESPIRATORY RATE (ARTERIAL BG [place]INGO QUESTION) 23.0 breaths/min Normal 4 [facility] pH BldA 7.32 units Below low normal 4 7.35 - 7.45 [facility] pO2 BldA 94.0 mmHg Normal 4 83 - 108 [facility] pCO2 BldA 65.0 mmHg Critically high 4 32 - 48 [facility] TEMPERATURE (ARTERIAL BG [place] QUESTION) 100.9 Fahrenheit Normal 4 [facility] OXYGEN MODE (ARTERIAL BG [place] QUESTION) High Flow Nasal Cannula Normal 4 [facility] FIO2 (ARTERIAL BG [place] QUESTION) 50.0 % Normal 4 [facility] SP02 (ARTERIAL BG [place] QUESTION) 91.0 % Normal 4 [facility] Base excess std BldA Calc-sCnc 6.0 mmol/L Above high normal 4 - [facility] HCO3 std BldA-sCnc 32.2 mmol/L Above high normal 10/27 4 21 - 28 [facility] SaO2 % BldA 95.0 % Normal 4 94 - 98 [facility] ACTUAL RESPIRATORY RATE (ARTERIAL BG [place] QUESTION) 28.0 breaths/min Normal 4 [facility] LITER FLOW (ARTERIAL BG [place] QUESTION) 20.0 L/min Normal 4 [facility] Trigl SerPl-mCnc 147.0 mg/dL Normal 4 - [facility] BUN/Creat SerPl 40.4 Above high normal 02 4 8 - 23 [facility] Chloride SerPl-sCnc 105.0 mmol/L Normal 11/23/19 2 4 98 - 107 [facility] GFR/BSA.pred SerPlBld EUG-[id number]-[id number] >60.0 mL/min/1.73m2 Normal 4 - [facility] Glucose SerPl-mCnc 199.0 mg/dL Above high normal 10/27 4 70 - 100 [facility] Sodium SerPl-sCnc 145.0 mmol/L Above high normal 11/22 4 136 - 144 [facility] Anion Gap3 SerPl-sCnc 10.0 Normal 4 7 - 17 [facility] Creat SerPl-mCnc 0.57 mg/dL Normal 4 0.4 - 1.3 [facility] HCO3 SerPl-sCnc 30.0 mmol/L Normal 4 20 - 30 [facility] BUN SerPl-mCnc 23.0 mg/dL Above high normal 11/23/19 2 4 6 - 20 [facility] Potassium SerPl-sCnc 4.0 mmol/L Normal 02 4 3.3 - 5.3 [facility] Calcium SerPl-mCnc 9.7 mg/dL Normal 4 8.8 - 10.2 [facility] Phosphate SerPl-mCnc 3.7 mg/dL Normal 02 4 2.2 - 4.5 [facility] Magnesium SerPl-mCnc 2.0 mg/dL Normal 02 4 1.7 - 2.4 [facility] nRBC # Bld Auto 0.0 x 1000/uL Normal 4 0 - 1 [facility] Monocytes/leuk NFr Bld Auto 11.6 % Normal 4 4 - 12 [facility] RBC # Bld Auto 3.32 M/uL Below low normal 4 4 - 6 [facility] Basophils/leuk NFr Bld Auto 0.4 % Normal 4 0 - 1.4 [facility] Neutrophils # Bld Auto 7.9 x 1000/uL Above high normal 4 2 - 7.6 [facility] Basophils # Bld Auto 0.04 x 1000/uL Normal 11/22 4 0 - 1 [facility] MCV RBC Auto 95.5 fL Normal 4 80 - 100 [facility] Lymphocytes/leuk NFr Bld Auto 16.4 % Below low normal 4 17 - 50 [facility] Eosinophil # Bld Auto 0.0 x 1000/uL Normal 11/22 4 0 - 1 [facility] Lymphocytes # Bld Auto 1.83 x 1000/uL Normal 4 0.6 - 3.7 [facility] WBC # Bld Auto 11.2 x1000/uL Above high normal 02 4 4 - 11 [facility] PMV Bld Auto 10.6 fL Normal 4 8 - 12 [facility] Hct VFr Bld Auto 31.7 % Below low normal 02 4 38.5 - 50 [facility] Neutrophils/leuk NFr Bld Auto 70.8 % Normal 4 39 - 72 [facility] Eosinophil/leuk NFr Bld Auto 0.0 % Normal 4 0 - 5 [facility] Hgb Bld-mCnc 9.5 g/dL Below low normal 4 13.2 - 17.1 [facility] Platelet # Bld Auto 646.0 x1000/uL Above high normal 0 4 150 - 420 [facility] Monocytes # Bld Auto 1.29 x 1000/uL Above high normal 4 0 - 1 [facility] nRBC/100 WBC Bld Auto-Rto 0.0 % Normal 4 0 - 1 [facility] Imm Granulocytes # Bld Auto 0.09 x 1000/uL Normal 4 0 - 0.3 [facility] MCHC RBC Auto-mCnc 30.0 g/dL Below low normal 11/22 4 31 - 36 [facility] Granulocytes/leuk NFr Bld Auto 0.8 % Normal 4 0 - 1 [facility] MCH RBC Qn Auto 28.6 pg Normal 4 27 - 33 [facility] RDW RBC Auto-Rto 13.9 % Normal 4 11 - 15 [facility] Base excess std BldA Calc-sCnc 6.0 mmol/L Above high normal 4 - [facility] SP02 (ARTERIAL BG [place] QUESTION) 96.0 % Normal 4 [facility] SaO2 % BldA 98.0 % Normal 4 94 - 98 [facility] OXYGEN MODE (ARTERIAL BG [place] QUESTION) High Flow Nasal Cannula Normal 4 [facility] pH BldA 7.41 units Normal 4 7.35 - 7.45 [facility] FIO2 (ARTERIAL BG [place] QUESTION) 50.0 % Normal 4 [facility] pCO2 BldA 50.0 mmHg Above high normal 4 32 - 48 [facility] LITER FLOW (ARTERIAL BG [place] QUESTION) 20.0 L/min Normal 4 [facility] pO2 BldA 121.0 mmHg Above high normal 4 83 - 108 [facility] TEMPERATURE (ARTERIAL BG [place] QUESTION) 100.8 Fahrenheit Normal 4 [facility] HCO3 std BldA-sCnc 30.7 mmol/L Above high normal 10/27 4 21 - 28 [facility] ACTUAL RESPIRATORY RATE (ARTERIAL BG [place] QUESTION) 17.0 breaths/min Normal 4 [facility] TEMPERATURE (ARTERIAL BG [place] QUESTION) 100.9 Fahrenheit Normal 4 [facility] FIO2 (ARTERIAL BG [place] QUESTION) 40.0 % Normal 4 [facility] pH BldA 7.46 units Above high normal 4 7.35 - 7.45 [facility] OXYGEN MODE (ARTERIAL BG [place] QUESTION) High Flow Nasal Cannula Normal 4 [facility] SP02 (ARTERIAL BG [place] QUESTION) 98.0 % Normal 4 [facility] pO2 BldA 163.0 mmHg Above high normal 4 83 - 108 [facility] HCO3 std BldA-sCnc 29.7 mmol/L Above high normal 10/27 4 21 - 28 [facility] SaO2 % BldA 99.0 % Above high normal 4 94 - 98 [facility] pCO2 BldA 43.0 mmHg Normal 4 32 - 48 [facility] Base excess std BldA Calc-sCnc 6.0 mmol/L Above high normal 4 - [facility] Anion Gap3 SerPl-sCnc 9.0 Normal 4 7 - 17 [facility] Glucose SerPl-mCnc 129.0 mg/dL Above high normal 10/27 4 70 - 100 [facility] BUN SerPl-mCnc 27.0 mg/dL Above high normal 11/22/19 2 4 6 - 20 [facility] Potassium SerPl-sCnc 3.7 mmol/L Normal 02 4 3.3 - 5.3 [facility] Creat SerPl-mCnc 0.61 mg/dL Normal 4 0.4 - 1.3 [facility] BUN/Creat SerPl 44.3 Above high normal 02 4 8 - 23 [facility] Chloride SerPl-sCnc 106.0 mmol/L Normal 11/22/19 2 4 98 - 107 [facility] Sodium SerPl-sCnc 144.0 mmol/L Normal 4 136 - 144 [facility] Calcium SerPl-mCnc 9.6 mg/dL Normal 4 8.8 - 10.2 [facility] GFR/BSA.pred SerPlBld AJI-EFG-NaXDhl >60.0 mL/min/1.73m2 Normal 4 - [facility] HCO3 SerPl-sCnc 29.0 mmol/L Normal 4 20 - 30 [facility] Phosphate SerPl-mCnc 3.4 mg/dL Normal 02 4 2.2 - 4.5 [facility] Magnesium SerPl-mCnc 1.9 mg/dL Normal 02 4 1.7 - 2.4 [facility] Platelet # Bld Auto 637.0 x1000/uL Above high normal 0 4 150 - 420 [facility] Lymphocytes/leuk NFr Bld Auto 20.8 % Normal 4 17 - 50 [facility] Eosinophil # Bld Auto 0.03 x 1000/uL Normal 10/27 4 0 - 1 [facility] MCH RBC Qn Auto 29.5 pg Normal 4 27 - 33 [facility] MCHC RBC Auto-mCnc 31.6 g/dL Normal 4 31 - 36 [facility] Hgb Bld-mCnc 9.1 g/dL Below low normal 4 13.2 - 17.1 [facility] WBC # Bld Auto 10.5 x1000/uL Normal 4 4 - 11 [facility] Imm Granulocytes/leuk NFr Bld Auto 1.0 % Normal 4 0 - 1 [facility] Hct VFr Bld Auto 28.8 % Below low normal 02 4 38.5 - 50 [facility] nRBC # Bld Auto 0.0 x 1000/uL Normal 4 0 - 1 [facility] RDW RBC Auto-Rto 13.8 % Normal 4 11 - 15 [facility] Eosinophil/leuk NFr Bld Auto 0.3 % Normal 4 0 - 5 [facility] Imm Granulocytes # Bld Auto 0.11 x 1000/uL Normal 4 0 - 0.3 [facility] Neutrophils # Bld Auto 7.16 x 1000/uL Normal 4 2 - 7.6 [facility] Monocytes # Bld Auto 0.98 x 1000/uL Normal 11/21 4 0 - 1 [facility] nRBC/100 WBC Bld Auto-Rto 0.0 % Normal 4 0 - 1 [facility] Monocytes/leuk NFr Bld Auto 9.3 % Normal 4 4 - 12 [facility] RBC # Bld Auto 3.08 M/uL Below low normal 4 4 - 6 [facility] Basophils # Bld Auto 0.03 x 1000/uL Normal 11/21 4 0 - 1 [facility] Basophils/leuk NFr Bld Auto 0.3 % Normal 4 0 - 1.4 [facility] PMV Bld Auto 10.7 fL Normal 4 8 - 12 [facility] Lymphocytes # Bld Auto 2.18 x 1000/uL Normal 4 0.6 - 3.7 [facility] MCV RBC Auto 93.5 fL Normal 4 80 - 100 [facility] Neutrophils/leuk NFr Bld Auto 68.3 % Normal 4 39 - 72 [facility] RH TYPE POS Normal 4 [facility] ABO GROUPING O Normal 4 [facility] SPECIMEN EXPIRATION DATE AND TIME 11/23/2023 23:59 Normal 4 [facility] ANTIBODY SCREEN NEG Normal 11/21/19 2 4 [facility] Calcium SerPl-mCnc 9.8 mg/dL Normal 4 8.8 - 10.2 [facility] Chloride SerPl-sCnc 105.0 mmol/L Normal 11/21/19 2 4 98 - 107 [facility] BUN/Creat SerPl 37.9 Above high normal 02 4 8 - 23 [facility] Anion Gap3 SerPl-sCnc 10.0 Normal 4 7 - 17 [facility] Sodium SerPl-sCnc 143.0 mmol/L Normal 4 136 - 144 [facility] Creat SerPl-mCnc 0.66 mg/dL Normal 4 0.4 - 1.3 [facility] BUN SerPl-mCnc 25.0 mg/dL Above high normal 11/21/19 2 4 6 - 20 [facility] HCO3 SerPl-sCnc 28.0 mmol/L Normal 4 20 - 30 [facility] GFR/BSA.pred SerPlBld BZL-XWL-AzUGef >60.0 mL/min/1.73m2 Normal 4 - [facility] Potassium SerPl-sCnc 3.9 mmol/L Normal 02 4 3.3 - 5.3 [facility] Glucose SerPl-mCnc 129.0 mg/dL Above high normal 10/27 4 70 - 100 [facility] Magnesium SerPl-mCnc 2.1 mg/dL Normal 02 4 1.7 - 2.4 [facility] Phosphate SerPl-mCnc 3.8 mg/dL Normal 02 4 2.2 - 4.5 [facility] nRBC/100 WBC Bld Auto-Rto 0.0 % Normal 4 0 - 1 [facility] Neutrophils # Bld Auto 6.4 x 1000/uL Normal 4 2 - 7.6 [facility] Neutrophils/leuk NFr Bld Auto 70.9 % Normal 4 39 - 72 [facility] Eosinophil/leuk NFr Bld Auto 1.0 % Normal 4 0 - 5 [facility] RBC # Bld Auto 3.1 M/uL Below low normal 4 4 - 6 [facility] nRBC # Bld Auto 0.0 x 1000/uL Normal 4 0 - 1 [facility] Hgb Bld-mCnc 9.2 g/dL Below low normal 4 13.2 - 17.1 [facility] Lymphocytes/leuk NFr Bld Auto 17.3 % Normal 4 17 - 50 [facility] RDW RBC Auto-Rto 13.8 % Normal 4 11 - 15 [facility] Platelet # Bld Auto 621.0 x1000/uL Above high normal 0 4 150 - 420 [facility] Imm Granulocytes/leuk NFr Bld Auto 1.7 % Above high normal 4 0 - 1 [facility] Lymphocytes # Bld Auto 1.56 x 1000/uL Normal 4 0.6 - 3.7 [facility] Imm Granulocytes # Bld Auto 0.15 x 1000/uL Normal 4 0 - 0.3 [facility] Monocytes/leuk NFr Bld Auto 8.5 % Normal 4 4 - 12 [facility] PMV Bld Auto 10.5 fL Normal 4 8 - 12 [facility] Basophils/leuk NFr Bld Auto 0.6 % Normal 4 0 - 1.4 [facility] MCH RBC Qn Auto 29.7 pg Normal 4 27 - 33 [facility] MCHC RBC Auto-mCnc 31.3 g/dL Normal 4 31 - 36 [facility] Hct VFr Bld Auto 29.4 % Below low normal 02 4 38.5 - 50 [facility] Basophils # Bld Auto 0.05 x 1000/uL Normal 11/20 4 0 - 1 [facility] WBC # Bld Auto 9.0 x1000/uL Normal 4 4 - 11 [facility] Eosinophil # Bld Auto 0.09 x 1000/uL Normal 10/27 4 0 - 1 [facility] Monocytes # Bld Auto 0.77 x 1000/uL Normal 11/20 4 0 - 1 [facility] MCV RBC Auto 94.8 fL Normal 4 80 - 100 [facility] Creat SerPl-mCnc 0.65 mg/dL Normal 4 0.4 - 1.3 [facility] Potassium SerPl-sCnc 3.9 mmol/L Normal 02 4 3.3 - 5.3 [facility] Anion Gap3 SerPl-sCnc 12.0 Normal 4 7 - 17 [facility] GFR/BSA.pred SerPlBld WWY-CFC-OwCNbn >60.0 mL/min/1.73m2 Normal 4 - [facility] HCO3 SerPl-sCnc 27.0 mmol/L Normal 4 20 - 30 [facility] BUN SerPl-mCnc 24.0 mg/dL Above high normal 11/20/19 2 4 6 - 20 [facility] Sodium SerPl-sCnc 142.0 mmol/L Normal 4 136 - 144 [facility] Glucose SerPl-mCnc 150.0 mg/dL Above high normal 10/27 4 70 - 100 [facility] Calcium SerPl-mCnc 9.6 mg/dL Normal 4 8.8 - 10.2 [facility] BUN/Creat SerPl 36.9 Above high normal 02 4 8 - 23 [facility] Chloride SerPl-sCnc 103.0 mmol/L Normal 11/20/19 2 4 98 - 107 [facility] Path Interp Bld-Imp The low molecular weight heparin level is BELOW therapeutic range for both q12 \T\ q24 dosing. Normal 4 [facility] UFH PPP Senior Technical Editor-aCnc 0.12 u/mL Normal 4 - [facility] Lymphocytes # Bld Auto 1.62 x 1000/uL Normal 4 0.6 - 3.7 [facility] PMV Bld Auto 10.8 fL Normal 4 8 - 12 [facility] nRBC/100 WBC Bld Auto-Rto 0.0 % Normal 4 0 - 1 [facility] Neutrophils # Bld Auto 5.55 x 1000/uL Normal 4 2 - 7.6 [facility] Eosinophil # Bld Auto 0.22 x 1000/uL Normal 10/27 4 0 - 1 [facility] WBC # Bld Auto 8.3 x1000/uL Normal 4 4 - 11 [facility] Basophils/leuk NFr Bld Auto 0.6 % Normal 4 0 - 1.4 [facility] RBC # Bld Auto 2.85 M/uL Below low normal 4 4 - 6 [facility] Basophils # Bld Auto 0.05 x 1000/uL Normal 11/19 4 0 - 1 [facility] nRBC # Bld Auto 0.0 x 1000/uL Normal 4 0 - 1 [facility] Monocytes # Bld Auto 0.66 x 1000/uL Normal 11/19 4 0 - 1 [facility] Neutrophils/leuk NFr Bld Auto 66.9 % Normal 4 39 - 72 [facility] RDW RBC Auto-Rto 13.6 % Normal 4 11 - 15 [facility] Hgb Bld-mCnc 8.6 g/dL Below low normal 4 13.2 - 17.1 [facility] Monocytes/leuk NFr Bld Auto 8.0 % Normal 4 4 - 12 [facility] Imm Granulocytes/leuk NFr Bld Auto 2.2 % Above high normal 4 0 - 1 [facility] Imm Granulocytes # Bld Auto 0.18 x 1000/uL Normal 4 0 - 0.3 [facility] MCV RBC Auto 96.1 fL Normal 4 80 - 100 [facility] Hct VFr Bld Auto 27.4 % Below low normal 02 4 38.5 - 50 [facility] MCH RBC Qn Auto 30.2 pg Normal 4 27 - 33 [facility] Platelet # Bld Auto 601.0 x1000/uL Above high normal 0 4 150 - 420 [facility] MCHC RBC Auto-mCnc 31.4 g/dL Normal 4 31 - 36 [facility] Lymphocytes/leuk NFr Bld Auto 19.6 % Normal 4 17 - 50 [facility] Eosinophil/leuk NFr Bld Auto 2.7 % Normal 4 0 - 5 [facility] Phosphate SerPl-mCnc 4.0 mg/dL Normal 02 4 2.2 - 4.5 [facility] Magnesium SerPl-mCnc 2.1 mg/dL Normal 02 4 1.7 - 2.4 [facility] BUN SerPl-mCnc 22.0 mg/dL Above high normal 11/20/19 2 4 6 - 20 [facility] Calcium SerPl-mCnc 9.3 mg/dL Normal 4 8.8 - 10.2 [facility] Glucose SerPl-mCnc 135.0 mg/dL Above high normal 10/27 4 70 - 100 [facility] Potassium SerPl-sCnc 4.0 mmol/L Normal 02 4 3.3 - 5.3 [facility] GFR/BSA.pred SerPlBld GPF-INW-TlXZip >60.0 mL/min/1.73m2 Normal 4 - [facility] BUN/Creat SerPl 35.5 Above high normal 02 4 8 - 23 [facility] Chloride SerPl-sCnc 103.0 mmol/L Normal 11/20/19 2 4 98 - 107 [facility] Creat SerPl-mCnc 0.62 mg/dL Normal 4 0.4 - 1.3 [facility] HCO3 SerPl-sCnc 29.0 mmol/L Normal 4 20 - 30 [facility] Sodium SerPl-sCnc 142.0 mmol/L Normal 4 136 - 144 [facility] Anion Gap3 SerPl-sCnc 10.0 Normal 4 7 - 17 [facility] Phosphate SerPl-mCnc 3.7 mg/dL Normal 02 4 2.2 - 4.5 [facility] GFR/BSA.pred SerPlBld MBQ-KKY-FjWXpw >60.0 mL/min/1.73m2 Normal 4 - [facility] Chloride SerPl-sCnc 102.0 mmol/L Normal 11/19/19 2 4 98 - 107 [facility] Potassium SerPl-sCnc 3.8 mmol/L Normal 02 4 3.3 - 5.3 [facility] BUN SerPl-mCnc 22.0 mg/dL Above high normal 11/19/19 2 4 6 - 20 [facility] Calcium SerPl-mCnc 9.4 mg/dL Normal 4 8.8 - 10.2 [facility] Glucose SerPl-mCnc 143.0 mg/dL Above high normal 10/27 4 70 - 100 [facility] BUN/Creat SerPl 37.3 Above high normal 02 4 8 - 23 [facility] Sodium SerPl-sCnc 142.0 mmol/L Normal 4 136 - 144 [facility] Creat SerPl-mCnc 0.59 mg/dL Normal 4 0.4 - 1.3 [facility] HCO3 SerPl-sCnc 29.0 mmol/L Normal 4 20 - 30 [facility] Anion Gap3 SerPl-sCnc 11.0 Normal 4 7 - 17 [facility] Magnesium SerPl-mCnc 2.0 mg/dL Normal 02 4 1.7 - 2.4 [facility] Prealb SerPl Neph-mCnc 14.8 mg/dL Below low normal 4 20 - 40 [facility] CRP SerPl HS-mCnc 58.0 mg/L Above high normal 11/18 4 - [facility] INR PPP 1.0 Normal 4 0.86 - 1.12 [facility] Prothrombin time 11.1 seconds Normal 4 9.6 - 12.3 [facility] aPTT PPP 39.3 seconds Above high normal 4 23 - 31.4 [facility] Chloride SerPl-sCnc 100.0 mmol/L Normal 11/19/19 2 4 98 - 107 [facility] Creat SerPl-mCnc 0.59 mg/dL Normal 4 0.4 - 1.3 [facility] Sodium SerPl-sCnc 141.0 mmol/L Normal 4 136 - 144 [facility] BUN SerPl-mCnc 21.0 mg/dL Above high normal 11/19/19 2 4 6 - 20 [facility] HCO3 SerPl-sCnc 32.0 mmol/L Above high normal 02 4 20 - 30 [facility] Calcium SerPl-mCnc 9.2 mg/dL Normal 4 8.8 - 10.2 [facility] Potassium SerPl-sCnc 3.9 mmol/L Normal 02 4 3.3 - 5.3 [facility] GFR/BSA.pred SerPlBld ZUA-GZH-WfLAei >60.0 mL/min/1.73m2 Normal 4 - [facility] BUN/Creat SerPl 35.6 Above high normal 02 4 8 - 23 [facility] Glucose SerPl-mCnc 150.0 mg/dL Above high normal 10/27 4 70 - 100 [facility] Anion Gap3 SerPl-sCnc 9.0 Normal 4 7 - 17 [facility] Phosphate SerPl-mCnc 3.0 mg/dL Normal 02 4 2.2 - 4.5 [facility] Magnesium SerPl-mCnc 2.0 mg/dL Normal 02 4 1.7 - 2.4 [facility] Monocytes/leuk NFr Bld Auto 8.2 % Normal 4 4 - 12 [facility] Imm Granulocytes/leuk NFr Bld Auto 2.3 % Above high normal 4 0 - 1 [facility] Eosinophil # Bld Auto 0.2 x 1000/uL Normal 11/18 4 0 - 1 [facility] PMV Bld Auto 10.5 fL Normal 4 8 - 12 [facility] Neutrophils/leuk NFr Bld Auto 62.5 % Normal 4 39 - 72 [facility] Basophils/leuk NFr Bld Auto 0.4 % Normal 4 0 - 1.4 [facility] Basophils # Bld Auto 0.03 x 1000/uL Normal 11/18 4 0 - 1 [facility] MCHC RBC Auto-mCnc 31.8 g/dL Normal 4 31 - 36 [facility] nRBC/100 WBC Bld Auto-Rto 0.0 % Normal 4 0 - 1 [facility] RBC # Bld Auto 2.77 M/uL Below low normal 4 4 - 6 [facility] Platelet # Bld Auto 602.0 x1000/uL Above high normal 0 4 150 - 420 [facility] Monocytes # Bld Auto 0.62 x 1000/uL Normal 11/18 4 0 - 1 [facility] MCH RBC Qn Auto 30.0 pg Normal 4 27 - 33 [facility] Hgb Bld-mCnc 8.3 g/dL Below low normal 4 13.2 - 17.1 [facility] Eosinophil/leuk NFr Bld Auto 2.7 % Normal 4 0 - 5 [facility] MCV RBC Auto 94.2 fL Normal 4 80 - 100 [facility] Neutrophils # Bld Auto 4.72 x 1000/uL Normal 4 2 - 7.6 [facility] Lymphocytes/leuk NFr Bld Auto 23.9 % Normal 4 17 - 50 [facility] Hct VFr Bld Auto 26.1 % Below low normal 02 4 38.5 - 50 [facility] nRBC # Bld Auto 0.0 x 1000/uL Normal 4 0 - 1 [facility] WBC # Bld Auto 7.5 x1000/uL Normal 4 4 - 11 [facility] RDW RBC Auto-Rto 13.3 % Normal 4 11 - 15 [facility] Lymphocytes # Bld Auto 1.8 x 1000/uL Normal 4 0.6 - 3.7 [facility] Imm Granulocytes # Bld Auto 0.17 x 1000/uL Normal 4 0 - 0.3 [facility] B[facility] ANTIBODY SCREEN NEG Normal 11/18/19 2 4 [facility] RH TYPE POS Normal 4 [facility] ABO GROUPING O Normal 4 [facility] SPECIMEN EXPIRATION DATE AND TIME 11/21/2023 23:59 Normal 4 [facility] Phosphate SerPl-mCnc 2.9 mg/dL Normal 02 4 2.2 - 4.5 [facility] BUN SerPl-mCnc 19.0 mg/dL Normal 4 6 - 20 [facility] Sodium SerPl-sCnc 140.0 mmol/L Normal 4 136 - 144 [facility] Chloride SerPl-sCnc 99.0 mmol/L Normal 11/18/19 2 4 98 - 107 [facility] Calcium SerPl-mCnc 9.2 mg/dL Normal 4 8.8 - 10.2 [facility] HCO3 SerPl-sCnc 34.0 mmol/L Above high normal 02 4 20 - 30 [facility] Anion Gap3 SerPl-sCnc 7.0 Normal 4 7 - 17 [facility] Glucose SerPl-mCnc 151.0 mg/dL Above high normal 10/27 4 70 - 100 [facility] BUN/Creat SerPl 31.1 Above high normal 02 4 8 - 23 [facility] GFR/BSA.pred SerPlBld LWD-DPS-IsFUia >60.0 mL/min/1.73m2 Normal 4 - [facility] Potassium SerPl-sCnc 4.1 mmol/L Normal 02 4 3.3 - 5.3 [facility] Creat SerPl-mCnc 0.61 mg/dL Normal 4 0.4 - 1.3 [facility] Magnesium SerPl-mCnc 1.9 mg/dL Normal 02 4 1.7 - 2.4 [facility] INR PPP 1.0 Normal 4 0.86 - 1.12 [facility] Prothrombin time 11.1 seconds Normal 4 9.6 - 12.3 [facility] aPTT PPP 39.0 seconds Above high normal 4 23 - 31.4 [facility] nRBC # Bld Auto 0.0 x 1000/uL Normal 4 0 - 1 [facility] RDW RBC Auto-Rto 13.3 % Normal 4 11 - 15 [facility] Basophils # Bld Auto 0.03 x 1000/uL Normal 11/17 4 0 - 1 [facility] Eosinophil/leuk NFr Bld Auto 7.7 % Above high normal 4 0 - 5 [facility] Eosinophil # Bld Auto 0.51 x 1000/uL Normal 10/27 4 0 - 1 [facility] MCV RBC Auto 95.6 fL Normal 4 80 - 100 [facility] Neutrophils # Bld Auto 4.1 x 1000/uL Normal 4 2 - 7.6 [facility] Platelet # Bld Auto 583.0 x1000/uL Above high normal 0 4 150 - 420 [facility] Monocytes # Bld Auto 0.48 x 1000/uL Normal 11/17 4 0 - 1 [facility] Hgb Bld-mCnc 8.0 g/dL Below low normal 4 13.2 - 17.1 [facility] RBC # Bld Auto 2.7 M/uL Below low normal 4 4 - 6 [facility] MCH RBC Qn Auto 29.6 pg Normal 4 27 - 33 [facility] Monocytes/leuk NFr Bld Auto 7.3 % Normal 4 4 - 12 [facility] Imm Granulocytes # Bld Auto 0.06 x 1000/uL Normal 4 0 - 0.3 [facility] MCHC RBC Auto-mCnc 31.0 g/dL Normal 4 31 - 36 [facility] WBC # Bld Auto 6.6 x1000/uL Normal 4 4 - 11 [facility] Lymphocytes # Bld Auto 1.44 x 1000/uL Normal 4 0.6 - 3.7 [facility] Basophils/leuk NFr Bld Auto 0.5 % Normal 4 0 - 1.4 [facility] PMV Bld Auto 10.7 fL Normal 4 8 - 12 [facility] Imm Granulocytes/leuk NFr Bld Auto 0.9 % Normal 4 0 - 1 [facility] Lymphocytes/leuk NFr Bld Auto 21.8 % Normal 4 17 - 50 [facility] nRBC/100 WBC Bld Auto-Rto 0.0 % Normal 4 0 - 1 [facility] Neutrophils/leuk NFr Bld Auto 61.8 % Normal 4 39 - 72 [facility] Hct VFr Bld Auto 25.8 % Below low normal 02 4 38.5 - 50 [facility] pH BldA 7.42 units Normal 4 7.35 - 7.45 [facility] SaO2 % BldA 99.0 % Above high normal 4 94 - 98 [facility] OXYGEN MODE (ARTERIAL BG [place]ING[place] QUESTION) Ventilator Normal 4 [facility] Base excess std BldA Calc-sCnc 8.0 mmol/L Above high normal 4 - [facility] TEMPERATURE (ARTERIAL BG [place]ING[place] QUESTION) 98.4 Fahrenheit Normal 4 [facility] pCO2 BldA 51.0 mmHg Above high normal 4 32 - 48 [facility] pO2 BldA 117.0 mmHg Above high normal 4 83 - 108 [facility] FIO2 (ARTERIAL BG [place] QUESTION) 40.0 % Normal 4 [facility] HCO3 std BldA-sCnc 32.6 mmol/L Above high normal 10/27 4 21 - 28 [facility] VENT MODE (ARTERIAL BG [place] QUESTION) CPAP Normal 4 [facility] END TIDAL CO2/TCOM (ARTERIAL BG [place]O QUESTION) 54.0 mmol/L Normal 4 [facility] Potassium SerPl-sCnc 3.8 mmol/L Normal 02 4 3.3 - 5.3 [facility] Sodium SerPl-sCnc 140.0 mmol/L Normal 4 136 - 144 [facility] BUN SerPl-mCnc 18.0 mg/dL Normal 4 6 - 20 [facility] Chloride SerPl-sCnc 98.0 mmol/L Normal 11/17/19 2 4 98 - 107 [facility] BUN/Creat SerPl 30.0 Above high normal 02 4 8 - 23 [facility] GFR/BSA.pred SerPlBld ZNS-NSV-RlPDuz >60.0 mL/min/1.73m2 Normal 4 - [facility] Creat SerPl-mCnc 0.6 mg/dL Normal 4 0.4 - 1.3 [facility] Calcium SerPl-mCnc 9.8 mg/dL Normal 4 8.8 - 10.2 [facility] HCO3 SerPl-sCnc 33.0 mmol/L Above high normal 02 4 20 - 30 [facility] Glucose SerPl-mCnc 188.0 mg/dL Above high normal 10/27 4 70 - 100 [facility] Anion Gap3 SerPl-sCnc 9.0 Normal 4 7 - 17 [facility] Phosphate SerPl-mCnc 2.7 mg/dL Normal 02 4 2.2 - 4.5 [facility] Magnesium SerPl-mCnc 1.9 mg/dL Normal 02 4 1.7 - 2.4 [facility] INR PPP 1.0 Normal 4 0.86 - 1.12 [facility] Prothrombin time 11.1 seconds Normal 4 9.6 - 12.3 [facility] aPTT PPP 39.1 seconds Above high normal 4 23 - 31.4 [facility] Eosinophil/leuk NFr Bld Auto 8.5 % Above high normal 4 0 - 5 [facility] Imm Granulocytes # Bld Auto 0.05 x 1000/uL Normal 4 0 - 0.3 [facility] WBC # Bld Auto 5.9 x1000/uL Normal 4 4 - 11 [facility] MCV RBC Auto 96.8 fL Normal 4 80 - 100 [facility] Platelet # Bld Auto 568.0 x1000/uL Above high normal 0 4 150 - 420 [facility] Basophils # Bld Auto 0.03 x 1000/uL Normal 11/16 4 0 - 1 [facility] nRBC # Bld Auto 0.0 x 1000/uL Normal 4 0 - 1 [facility] Eosinophil # Bld Auto 0.5 x 1000/uL Normal 11/16 4 0 - 1 [facility] Hgb Bld-mCnc 8.5 g/dL Below low normal 4 13.2 - 17.1 [facility] Neutrophils/leuk NFr Bld Auto 58.9 % Normal 4 39 - 72 [facility] Basophils/leuk NFr Bld Auto 0.5 % Normal 4 0 - 1.4 [facility] Lymphocytes # Bld Auto 1.35 x 1000/uL Normal 4 0.6 - 3.7 [facility] RDW RBC Auto-Rto 13.1 % Normal 4 11 - 15 [facility] Monocytes # Bld Auto 0.48 x 1000/uL Normal 11/16 4 0 - 1 [facility] Neutrophils # Bld Auto 3.46 x 1000/uL Normal 4 2 - 7.6 [facility] MCH RBC Qn Auto 29.8 pg Normal 4 27 - 33 [facility] RBC # Bld Auto 2.85 M/uL Below low normal 4 4 - 6 [facility] Imm Granulocytes/leuk NFr Bld Auto 0.9 % Normal 4 0 - 1 [facility] Lymphocytes/leuk NFr Bld Auto 23.0 % Normal 4 17 - 50 [facility] PMV Bld Auto 11.3 fL Normal 4 8 - 12 [facility] Monocytes/leuk NFr Bld Auto 8.2 % Normal 4 4 - 12 [facility] RBC Auto-mCnc 30.8 g/dL Below low normal 11/16 4 31 - 36 [facility] nRBC/100 WBC Bld Auto-Rto 0.0 % Normal 4 0 - 1 [facility] Hct VFr Bld Auto 27.6 % Below low normal 02 4 38.5 - 50 [facility] Prothrombin time 11.4 seconds Normal 4 9.6 - 12.3 [facility] INR PPP 1.03 Normal 4 0.86 - 1.12 [facility] aPTT PPP 40.6 seconds Above high normal 4 23 - 31.4 [facility] Phosphate SerPl-mCnc 2.4 mg/dL Normal 02 4 2.2 - 4.5 [facility] Potassium SerPl-sCnc 3.7 mmol/L Normal 02 4 3.3 - 5.3 [facility] BUN/Creat SerPl 29.4 Above high normal 02 4 8 - 23 [facility] Anion Gap3 SerPl-sCnc 8.0 Normal 4 7 - 17 [facility] GFR/BSA.pred SerPlBld QPA-JPB-JvHNcl >60.0 mL/min/1.73m2 Normal 4 - [facility] Sodium SerPl-sCnc 138.0 mmol/L Normal 4 136 - 144 [facility] Creat SerPl-mCnc 0.51 mg/dL Normal 4 0.4 - 1.3 [facility] BUN SerPl-mCnc 15.0 mg/dL Normal 4 6 - 20 [facility] Chloride SerPl-sCnc 99.0 mmol/L Normal 11/16/19 2 4 98 - 107 [facility] HCO3 SerPl-sCnc 31.0 mmol/L Above high normal 02 4 20 - 30 [facility] Glucose SerPl-mCnc 265.0 mg/dL Above high normal 10/27 4 70 - 100 [facility] Calcium SerPl-mCnc 9.4 mg/dL Normal 4 8.8 - 10.2 [facility] Magnesium SerPl-mCnc 1.9 mg/dL Normal 02 4 1.7 - 2.4 [facility] Hgb Bld-mCnc 8.3 g/dL Below low normal 4 13.2 - 17.1 [facility] RBC # Bld Auto 2.79 M/uL Below low normal 4 4 - 6 [facility] RBC Auto-mCnc 31.0 g/dL Normal 4 31 - 36 [facility] Basophils # Bld Auto 0.02 x 1000/uL Normal 11/15 4 0 - 1 [facility] Hct VFr Bld Auto 26.8 % Below low normal 02 4 38.5 - 50 [facility] MCV RBC Auto 96.1 fL Normal 4 80 - 100 [facility] RDW RBC Auto-Rto 12.8 % Normal 4 11 - 15 [facility] Neutrophils # Bld Auto 2.95 x 1000/uL Normal 4 2 - 7.6 [facility] WBC # Bld Auto 4.9 x1000/uL Normal 4 4 - 11 [facility] Platelet # Bld Auto 540.0 x1000/uL Above high normal 0 4 150 - 420 [facility] Lymphocytes # Bld Auto 1.04 x 1000/uL Normal 4 0.6 - 3.7 [facility] Eosinophil # Bld Auto 0.28 x 1000/uL Normal 10/27 4 0 - 1 [facility] Monocytes # Bld Auto 0.56 x 1000/uL Normal 11/15 4 0 - 1 [facility] RBC Qn Auto 29.7 pg Normal 4 27 - 33 [facility] nRBC/100 WBC Bld Auto-Rto 0.0 % Normal 4 0 - 1 [facility] Neutrophils/leuk NFr Bld Auto 60.3 % Normal 4 39 - 72 [facility] Imm Granulocytes/leuk NFr Bld Auto 0.8 % Normal 4 0 - 1 [facility] nRBC # Bld Auto 0.0 x 1000/uL Normal 4 0 - 1 [facility] Monocytes/leuk NFr Bld Auto 11.5 % Normal 4 4 - 12 [facility] Lymphocytes/leuk NFr Bld Auto 21.3 % Normal 4 17 - 50 [facility] Basophils/leuk NFr Bld Auto 0.4 % Normal 4 0 - 1.4 [facility] PMV Bld Auto 11.3 fL Normal 4 8 - 12 [facility] Imm Granulocytes # Bld Auto 0.04 x 1000/uL Normal 4 0 - 0.3 [facility] Eosinophil/leuk NFr Bld Auto 5.7 % Above high normal 4 0 - 5 [facility] B[facility] RH TYPE POS Normal 4 [facility] ANTIBODY SCREEN NEG Normal 11/15/19 2 4 [facility] ABO GROUPING O Normal 4 [facility] INR PPP 1.08 Normal 4 0.86 - 1.12 [facility] aPTT PPP 46.0 seconds Above high normal 4 23 - 31.4 [facility] Prothrombin time 11.9 seconds Normal 4 9.6 - 12.3 [facility] Phosphate SerPl-mCnc 3.4 mg/dL Normal 02 4 2.2 - 4.5 [facility] BUN SerPl-mCnc 16.0 mg/dL Normal 4 6 - 20 [facility] Anion Gap3 SerPl-sCnc 9.0 Normal 4 7 - 17 [facility] Sodium SerPl-sCnc 135.0 mmol/L Below low normal 4 136 - 144 [facility] Potassium SerPl-sCnc 3.9 mmol/L Normal 02 4 3.3 - 5.3 [facility] BUN/Creat SerPl 25.8 Above high normal 02 4 8 - 23 [facility] Calcium SerPl-mCnc 9.1 mg/dL Normal 4 8.8 - 10.2 [facility] HCO3 SerPl-sCnc 28.0 mmol/L Normal 4 20 - 30 [facility] GFR/BSA.pred SerPlBld ODG-ALZ-JmJNsl >60.0 mL/min/1.73m2 Normal 4 - [facility] Glucose SerPl-mCnc 235.0 mg/dL Above high normal 10/27 4 70 - 100 [facility] Chloride SerPl-sCnc 98.0 mmol/L Normal 11/15/19 2 4 98 - 107 [facility] Creat SerPl-mCnc 0.62 mg/dL Normal 4 0.4 - 1.3 [facility] Magnesium SerPl-mCnc 1.8 mg/dL Normal 02 4 1.7 - 2.4 [facility] Monocytes/leuk NFr Bld Auto 11.2 % Normal 4 4 - 12 [facility] RBC # Bld Auto 2.8 M/uL Below low normal 4 4 - 6 [facility] Basophils # Bld Auto 0.02 x 1000/uL Normal 11/14 4 0 - 1 [facility] RDW RBC Auto-Rto 12.7 % Normal 4 11 - 15 [facility] WBC # Bld Auto 6.0 x1000/uL Normal 4 4 - 11 [facility] Hgb Bld-mCnc 8.6 g/dL Below low normal 4 13.2 - 17.1 [facility] Imm Granulocytes/leuk NFr Bld Auto 0.5 % Normal 4 0 - 1 [facility] Lymphocytes # Bld Auto 0.89 x 1000/uL Normal 4 0.6 - 3.7 [facility] nRBC/100 WBC Bld Auto-Rto 0.0 % Normal 4 0 - 1 [facility] M[facility] RBC Qn Auto 30.7 pg Normal 4 27 - 33 [facility] MCV RBC Auto 94.6 fL Normal 4 80 - 100 [facility] Monocytes # Bld Auto 0.67 x 1000/uL Normal 11/14 4 0 - 1 [facility] Hct VFr Bld Auto 26.5 % Below low normal 02 4 38.5 - 50 [facility] Eosinophil # Bld Auto 0.31 x 1000/uL Normal 10/27 4 0 - 1 [facility] Neutrophils # Bld Auto 4.08 x 1000/uL Normal 4 2 - 7.6 [facility] PMV Bld Auto 11.0 fL Normal 4 8 - 12 [facility] Neutrophils/leuk NFr Bld Auto 68.0 % Normal 4 39 - 72 [facility] Basophils/leuk NFr Bld Auto 0.3 % Normal 4 0 - 1.4 [facility] Imm Granulocytes # Bld Auto 0.03 x 1000/uL Normal 4 0 - 0.3 [facility] nRBC # Bld Auto 0.0 x 1000/uL Normal 4 0 - 1 [facility] Lymphocytes/leuk NFr Bld Auto 14.8 % Below low normal 4 17 - 50 [facility] Platelet # Bld Auto 574.0 x1000/uL Above high normal 0 4 150 - 420 [facility] RBC Auto-mCnc 32.5 g/dL Normal 4 31 - 36 [facility] Eosinophil/leuk NFr Bld Auto 5.2 % Above high normal 4 0 - 5 [facility] Valproate SerPl-mCnc 30.1 ug/mL Below low normal 4 50 - 100 [facility] ALP SerPl-cCnc 163.0 U/L Above high normal 11/14/19 2 4 9 - 122 [facility] AST SerPl w P-5'-P-cCnc 19.0 U/L Normal 4 10 - 35 [facility] ALT SerPl w/o P-5'-P-cCnc 28.0 U/L Normal 4 9 - 59 [facility] Bilirub SerPl-mCnc 0.9 mg/dL Normal 4 - [facility] AST/ALT SerPl-cRto 0.7 Normal 4 - [facility] Bilirub Direct SerPl-mCnc 0.6 mg/dL Above high normal 4 - [facility] Ammonia Plas-sCnc 31.0 umol/L Normal 4 11 - 35 [facility] Phosphate SerPl-mCnc 4.7 mg/dL Above high normal 4 2.2 - 4.5 [facility] Magnesium SerPl-mCnc 1.8 mg/dL Normal 02 4 1.7 - 2.4 [facility] Potassium SerPl-sCnc 3.3 mmol/L Normal 02 4 3.3 - 5.3 [facility] Creat SerPl-mCnc 0.69 mg/dL Normal 4 0.4 - 1.3 [facility] Glucose SerPl-mCnc 132.0 mg/dL Above high normal 10/26 4 70 - 100 [facility] Sodium SerPl-sCnc 140.0 mmol/L Normal 4 136 - 144 [facility] Chloride SerPl-sCnc 100.0 mmol/L Normal 11/14/19 2 4 98 - 107 [facility] Calcium SerPl-mCnc 9.6 mg/dL Normal 4 8.8 - 10.2 [facility] BUN SerPl-mCnc 18.0 mg/dL Normal 4 6 - 20 [facility] GFR/BSA.pred SerPlBld NDP-KSC-GvKWmv >60.0 mL/min/1.73m2 Normal 4 - [facility] BUN/Creat SerPl 26.1 Above high normal 02 4 8 - 23 [facility] Anion Gap3 SerPl-sCnc 13.0 Normal 4 7 - 17 [facility] HCO3 SerPl-sCnc 27.0 mmol/L Normal 4 20 - 30 [facility] aPTT PPP 43.3 seconds Above high normal 4 23 - 31.4 [facility] INR PPP 1.08 Normal 4 0.86 - 1.12 [facility] Prothrombin time 11.9 seconds Normal 4 9.6 - 12.3 [facility] Hct VFr Bld Auto 27.1 % Below low normal 02 4 38.5 - 50 [facility] PMV Bld Auto 11.1 fL Normal 4 8 - 12 [facility] Lymphocytes # Bld Auto 1.36 x 1000/uL Normal 4 0.6 - 3.7 [facility] nRBC # Bld Auto 0.0 x 1000/uL Normal 4 0 - 1 [facility] Eosinophil/leuk NFr Bld Auto 2.2 % Normal 4 0 - 5 [facility] Basophils # Bld Auto 0.04 x 1000/uL Normal 11/13 4 0 - 1 [facility] Hgb Bld-mCnc 8.6 g/dL Below low normal 4 13.2 - 17.1 [facility] Imm Granulocytes # Bld Auto 0.03 x 1000/uL Normal 4 0 - 0.3 [facility] nRBC/100 WBC Bld Auto-Rto 0.0 % Normal 4 0 - 1 [facility] RDW RBC Auto-Rto 12.8 % Normal 4 11 - 15 [facility] Platelet # Bld Auto 618.0 x1000/uL Above high normal 0 4 150 - 420 [facility] Lymphocytes/leuk NFr Bld Auto 20.1 % Normal 4 17 - 50 [facility] Imm Granulocytes/leuk NFr Bld Auto 0.4 % Normal 4 0 - 1 [facility] MCV RBC Auto 94.8 fL Normal 4 80 - 100 [facility] Monocytes/leuk NFr Bld Auto 12.4 % Above high normal 4 4 - 12 [facility] RBC Auto-mCnc 31.7 g/dL Normal 4 31 - 36 [facility] WBC # Bld Auto 6.8 x1000/uL Normal 4 4 - 11 [facility] Monocytes # Bld Auto 0.84 x 1000/uL Normal 11/13 4 0 - 1 [facility] RBC # Bld Auto 2.86 M/uL Below low normal 4 4 - 6 [facility] Neutrophils # Bld Auto 4.36 x 1000/uL Normal 4 2 - 7.6 [facility] Neutrophils/leuk NFr Bld Auto 64.3 % Normal 4 39 - 72 [facility] Basophils/leuk NFr Bld Auto 0.6 % Normal 4 0 - 1.4 [facility] MCH RBC Qn Auto 30.1 pg Normal 4 27 - 33 [facility] Eosinophil # Bld Auto 0.15 x 1000/uL Normal 10/26 4 0 - 1 [facility] pH BldA 7.51 units Above high normal 4 7.35 - 7.45 [facility] Base excess std BldA Calc-sCnc 7.0 mmol/L Above high normal 4 - [facility] SaO2 % BldA 99.0 % Above high normal 4 94 - 98 [facility] pCO2 BldA 39.0 mmHg Normal 4 32 - 48 [facility] HCO3 std BldA-sCnc 30.2 mmol/L Above high normal 10/26 4 21 - 28 [facility] pO2 BldA 148.0 mmHg Above high normal 4 83 - 108 [facility] B[facility] TEMPERATURE (ARTERIAL BG [place]INGO QUESTION) 100.2 Fahrenheit Normal 4 [facility] pH BldA 7.49 units Above high normal 4 7.35 - 7.45 [facility] FIO2 (ARTERIAL BG [place] QUESTION) 40.0 % Normal 4 [facility] TEMPERATURE (ARTERIAL BG [place] QUESTION) 101.3 Fahrenheit Normal 4 [facility] HCO3 std BldA-sCnc 31.3 mmol/L Above high normal 10/26 4 21 - 28 [facility] pO2 BldA 108.0 mmHg Normal 4 83 - 108 [facility] pCO2 BldA 42.0 mmHg Normal 4 32 - 48 [facility] VENT MODE (ARTERIAL BG [place] QUESTION) AC/PC Normal 4 [facility] SaO2 % BldA 99.0 % Above high normal 4 94 - 98 [facility] OXYGEN MODE (ARTERIAL BG [place] QUESTION) Ventilator Normal 4 [facility] Base excess std BldA Calc-sCnc 8.0 mmol/L Above high normal 4 - [facility] B[facility] SP02 (ARTERIAL BG [place]INGO QUESTION) 96.0 % Normal 4 [facility] Procalcitonin SerPl-mCnc 0.07 ng/mL Normal 4 - [facility] Potassium SerPl-sCnc 4.0 mmol/L Normal 02 4 3.3 - 5.3 [facility] Creat SerPl-mCnc 0.59 mg/dL Normal 4 0.4 - 1.3 [facility] Glucose SerPl-mCnc 218.0 mg/dL Above high normal 10/26 4 70 - 100 [facility] Sodium SerPl-sCnc 139.0 mmol/L Normal 4 136 - 144 [facility] Chloride SerPl-sCnc 99.0 mmol/L Normal 11/13/19 2 4 98 - 107 [facility] BUN/Creat SerPl 28.8 Above high normal 02 4 8 - 23 [facility] BUN SerPl-mCnc 17.0 mg/dL Normal 4 6 - 20 [facility] Anion Gap3 SerPl-sCnc 11.0 Normal 4 7 - 17 [facility] HCO3 SerPl-sCnc 29.0 mmol/L Normal 4 20 - 30 [facility] GFR/BSA.pred SerPlBld TGU-IWR-YkLIye >60.0 mL/min/1.73m2 Normal 4 - [facility] Calcium SerPl-mCnc 9.4 mg/dL Normal 4 8.8 - 10.2 [facility] Phosphate SerPl-mCnc 4.0 mg/dL Normal 02 4 2.2 - 4.5 [facility] Magnesium SerPl-mCnc 1.8 mg/dL Normal 02 4 1.7 - 2.4 [facility] INR PPP 1.04 Normal 4 0.86 - 1.12 [facility] Prothrombin time 11.5 seconds Normal 4 9.6 - 12.3 [facility] aPTT PPP 39.7 seconds Above high normal 4 23 - 31.4 [facility] nRBC/100 WBC Bld Auto-Rto 0.0 % Normal 4 0 - 1 [facility] Neutrophils # Bld Auto 5.13 x 1000/uL Normal 4 2 - 7.6 [facility] RBC # Bld Auto 2.95 M/uL Below low normal 4 4 - 6 [facility] Lymphocytes # Bld Auto 1.52 x 1000/uL Normal 4 0.6 - 3.7 [facility] Imm Granulocytes # Bld Auto 0.05 x 1000/uL Normal 4 0 - 0.3 [facility] Eosinophil # Bld Auto 0.14 x 1000/uL Normal 10/26 4 0 - 1 [facility] Monocytes # Bld Auto 0.71 x 1000/uL Normal 11/12 4 0 - 1 [facility] Imm Granulocytes/leuk NFr Bld Auto 0.7 % Normal 4 0 - 1 [facility] Hgb Bld-mCnc 8.8 g/dL Below low normal 4 13.2 - 17.1 [facility] Eosinophil/leuk NFr Bld Auto 1.8 % Normal 4 0 - 5 [facility] Neutrophils/leuk NFr Bld Auto 67.6 % Normal 4 39 - 72 [facility] nRBC # Bld Auto 0.0 x 1000/uL Normal 4 0 - 1 [facility] Lymphocytes/leuk NFr Bld Auto 20.1 % Normal 4 17 - 50 [facility] Hct VFr Bld Auto 27.9 % Below low normal 02 4 38.5 - 50 [facility] RDW RBC Auto-Rto 12.8 % Normal 4 11 - 15 [facility] Platelet # Bld Auto 588.0 x1000/uL Above high normal 0 4 150 - 420 [facility] MCH[facility] RBC Auto-mCnc 31.5 g/dL Normal 4 31 - 36 [facility] Basophils # Bld Auto 0.03 x 1000/uL Normal 11/12 4 0 - 1 [facility] Monocytes/leuk NFr Bld Auto 9.4 % Normal 4 4 - 12 [facility] M[facility] RBC Qn Auto 29.8 pg Normal 4 27 - 33 [facility] Basophils/leuk NFr Bld Auto 0.4 % Normal 4 0 - 1.4 [facility] PMV Bld Auto 11.1 fL Normal 4 8 - 12 [facility] WBC # Bld Auto 7.6 x1000/uL Normal 4 4 - 11 [facility] MCV RBC Auto 94.6 fL Normal 4 80 - 100 [facility] NT-proBNP SerPl-mCnc <36.0 pg/mL Normal 02 4 - 125 [facility] ANTIBODY SCREEN NEG Normal 11/12/19 2 4 [facility] ABO GROUPING O Normal 4 [facility] RH TYPE POS Normal 4 [facility] Phosphate SerPl-mCnc 3.6 mg/dL Normal 02 4 2.2 - 4.5 [facility] Anion Gap3 SerPl-sCnc 13.0 Normal 4 7 - 17 [facility] BUN SerPl-mCnc 18.0 mg/dL Normal 4 6 - 20 [facility] Glucose SerPl-mCnc 233.0 mg/dL Above high normal 10/26 4 70 - 100 [facility] Potassium SerPl-sCnc 3.3 mmol/L Normal 02 4 3.3 - 5.3 [facility] Calcium SerPl-mCnc 9.3 mg/dL Normal 4 8.8 - 10.2 [facility] Creat SerPl-mCnc 0.62 mg/dL Normal 4 0.4 - 1.3 [facility] HCO3 SerPl-sCnc 29.0 mmol/L Normal 4 20 - 30 [facility] GFR/BSA.pred SerPlBld HLH-EYW-EkBRbv >60.0 mL/min/1.73m2 Normal 4 - [facility] Chloride SerPl-sCnc 95.0 mmol/L Below low normal 10/26 4 98 - 107 [facility] BUN/Creat SerPl 29.0 Above high normal 02 4 8 - 23 [facility] Sodium SerPl-sCnc 137.0 mmol/L Normal 4 136 - 144 [facility] Magnesium SerPl-mCnc 1.6 mg/dL Below low normal 4 1.7 - 2.4 [facility] Neutrophils/leuk NFr Bld Auto 74.1 % Above high normal 4 39 - 72 [facility] Neutrophils # Bld Auto 6.64 x 1000/uL Normal 4 2 - 7.6 [facility] MCH RBC Qn Auto 30.1 pg Normal 4 27 - 33 [facility] Monocytes # Bld Auto 0.57 x 1000/uL Normal 11/11 4 0 - 1 [facility] Basophils # Bld Auto 0.04 x 1000/uL Normal 11/11 4 0 - 1 [facility] Hct VFr Bld Auto 28.6 % Below low normal 02 4 38.5 - 50 [facility] Eosinophil/leuk NFr Bld Auto 1.4 % Normal 4 0 - 5 [facility] PMV Bld Auto 11.3 fL Normal 4 8 - 12 [facility] RDW RBC Auto-Rto 13.0 % Normal 4 11 - 15 [facility] RBC Auto-mCnc 31.5 g/dL Normal 4 31 - 36 [facility] nRBC # Bld Auto 0.0 x 1000/uL Normal 4 0 - 1 [facility] Imm Granulocytes # Bld Auto 0.06 x 1000/uL Normal 4 0 - 0.3 [facility] Lymphocytes/leuk NFr Bld Auto 17.1 % Normal 4 17 - 50 [facility] Hgb Bld-mCnc 9.0 g/dL Below low normal 4 13.2 - 17.1 [facility] Monocytes/leuk NFr Bld Auto 6.3 % Normal 4 4 - 12 [facility] Basophils/leuk NFr Bld Auto 0.4 % Normal 4 0 - 1.4 [facility] nRBC/100 WBC Bld Auto-Rto 0.0 % Normal 4 0 - 1 [facility] Eosinophil # Bld Auto 0.13 x 1000/uL Normal 10/26 4 0 - 1 [facility] Imm Granulocytes/leuk NFr Bld Auto 0.7 % Normal 4 0 - 1 [facility] MCV RBC Auto 95.7 fL Normal 4 80 - 100 [facility] Lymphocytes # Bld Auto 1.54 x 1000/uL Normal 4 0.6 - 3.7 [facility] WBC # Bld Auto 9.0 x1000/uL Normal 4 4 - 11 [facility] RBC # Bld Auto 2.99 M/uL Below low normal 4 4 - 6 [facility] Platelet # Bld Auto 626.0 x1000/uL Above high normal 0 4 150 - 420 [facility] Creat SerPl-mCnc 0.67 mg/dL Normal 4 0.4 - 1.3 [facility] BUN SerPl-mCnc 19.0 mg/dL Normal 4 6 - 20 [facility] Sodium SerPl-sCnc 141.0 mmol/L Normal 4 136 - 144 [facility] Calcium SerPl-mCnc 9.2 mg/dL Normal 4 8.8 - 10.2 [facility] BUN/Creat SerPl 28.4 Above high normal 02 4 8 - 23 [facility] GFR/BSA.pred SerPlBld VVR-EFO-DuXDgx >60.0 mL/min/1.73m2 Normal 4 - [facility] Glucose SerPl-mCnc 236.0 mg/dL Above high normal 10/26 4 70 - 100 [facility] HCO3 SerPl-sCnc 29.0 mmol/L Normal 4 20 - 30 [facility] Anion Gap3 SerPl-sCnc 13.0 Normal 4 7 - 17 [facility] Potassium SerPl-sCnc 3.7 mmol/L Normal 02 4 3.3 - 5.3 [facility] Chloride SerPl-sCnc 99.0 mmol/L Normal 11/11/19 2 4 98 - 107 [facility] Phosphate SerPl-mCnc 3.7 mg/dL Normal 02 4 2.2 - 4.5 [facility] Magnesium SerPl-mCnc 1.8 mg/dL Normal 02 4 1.7 - 2.4 [facility] Prealb SerPl Neph-mCnc 16.1 mg/dL Below low normal 4 20 - 40 [facility] Monocytes # Bld Auto 0.61 x 1000/uL Normal 11/10 4 0 - 1 [facility] PMV Bld Auto 11.0 fL Normal 4 8 - 12 [facility] Neutrophils # Bld Auto 5.99 x 1000/uL Normal 4 2 - 7.6 [facility] nRBC/100 WBC Bld Auto-Rto 0.0 % Normal 4 0 - 1 [facility] Imm Granulocytes/leuk NFr Bld Auto 0.5 % Normal 4 0 - 1 [facility] Neutrophils/leuk NFr Bld Auto 73.2 % Above high normal 4 39 - 72 [facility] MCH RBC Qn Auto 30.1 pg Normal 4 27 - 33 [facility] RBC # Bld Auto 2.92 M/uL Below low normal 4 4 - 6 [facility] Eosinophil # Bld Auto 0.07 x 1000/uL Normal 10/26 4 0 - 1 [facility] Eosinophil/leuk NFr Bld Auto 0.9 % Normal 4 0 - 5 [facility] MCV RBC Auto 94.9 fL Normal 4 80 - 100 [facility] MCHC RBC Auto-mCnc 31.8 g/dL Normal 4 31 - 36 [facility] RDW RBC Auto-Rto 12.9 % Normal 4 11 - 15 [facility] Hgb Bld-mCnc 8.8 g/dL Below low normal 4 13.2 - 17.1 [facility] Basophils # Bld Auto 0.04 x 1000/uL Normal 11/10 4 0 - 1 [facility] Platelet # Bld Auto 597.0 x1000/uL Above high normal 0 4 150 - 420 [facility] WBC # Bld Auto 8.2 x1000/uL Normal 4 4 - 11 [facility] Monocytes/leuk NFr Bld Auto 7.5 % Normal 4 4 - 12 [facility] Lymphocytes/leuk NFr Bld Auto 17.4 % Normal 4 17 - 50 [facility] Imm Granulocytes # Bld Auto 0.04 x 1000/uL Normal 4 0 - 0.3 [facility] Hct VFr Bld Auto 27.7 % Below low normal 02 4 38.5 - 50 [facility] Lymphocytes # Bld Auto 1.42 x 1000/uL Normal 4 0.6 - 3.7 [facility] Basophils/leuk NFr Bld Auto 0.5 % Normal 4 0 - 1.4 [facility] nRBC # Bld Auto 0.0 x 1000/uL Normal 4 0 - 1 [facility] CRP SerPl HS-mCnc 97.0 mg/L Above high normal 11/09 4 - [facility] Albumin SerPl BCG-mCnc 3.2 g/dL Below low normal 4 3.6 - 5.1 [facility] Procalcitonin SerPl-mCnc 0.12 ng/mL Normal 4 - [facility] Cortis SerPl-mCnc 13.8 ug/dL Normal 4 - [facility] GFR/BSA.pred SerPlBld CXM-SVC-ZoBEba >60.0 mL/min/1.73m2 Normal 4 - [facility] Anion Gap3 SerPl-sCnc 11.0 Normal 4 7 - 17 [facility] Chloride SerPl-sCnc 96.0 mmol/L Below low normal 10/26 4 98 - 107 [facility] BUN SerPl-mCnc 23.0 mg/dL Above high normal 11/10/19 2 4 6 - 20 [facility] Creat SerPl-mCnc 0.59 mg/dL Normal 4 0.4 - 1.3 [facility] HCO3 SerPl-sCnc 28.0 mmol/L Normal 4 20 - 30 [facility] BUN/Creat SerPl 39.0 Above high normal 02 4 8 - 23 [facility] Glucose SerPl-mCnc 276.0 mg/dL Above high normal 10/26 4 70 - 100 [facility] Calcium SerPl-mCnc 9.4 mg/dL Normal 4 8.8 - 10.2 [facility] Sodium SerPl-sCnc 135.0 mmol/L Below low normal 4 136 - 144 [facility] Potassium SerPl-sCnc 3.5 mmol/L Normal 02 4 3.3 - 5.3 [facility] Phosphate SerPl-mCnc 3.4 mg/dL Normal 02 4 2.2 - 4.5 [facility] Magnesium SerPl-mCnc 2.0 mg/dL Normal 02 4 1.7 - 2.4 [facility] Neutrophils/leuk NFr Bld Auto 68.0 % Normal 4 39 - 72 [facility] Eosinophil/leuk NFr Bld Auto 1.4 % Normal 4 0 - 5 [facility] nRBC/100 WBC Bld Auto-Rto 0.0 % Normal 4 0 - 1 [facility] PMV Bld Auto 11.0 fL Normal 4 8 - 12 [facility] Basophils/leuk NFr Bld Auto 0.5 % Normal 4 0 - 1.4 [facility] RDW RBC Auto-Rto 13.0 % Normal 4 11 - 15 [facility] Lymphocytes/leuk NFr Bld Auto 22.2 % Normal 4 17 - 50 [facility] Platelet # Bld Auto 651.0 x1000/uL Above high normal 0 4 150 - 420 [facility] Hgb Bld-mCnc 8.8 g/dL Below low normal 4 13.2 - 17.1 [facility] Imm Granulocytes/leuk NFr Bld Auto 0.6 % Normal 4 0 - 1 [facility] Lymphocytes # Bld Auto 1.97 x 1000/uL Normal 4 0.6 - 3.7 [facility] WBC # Bld Auto 8.9 x1000/uL Normal 4 4 - 11 [facility] MCH RBC Qn Auto 30.8 pg Normal 4 27 - 33 [facility] MCV RBC Auto 95.5 fL Normal 4 80 - 100 [facility] Eosinophil # Bld Auto 0.12 x 1000/uL Normal 10/26 4 0 - 1 [facility] Imm Granulocytes # Bld Auto 0.05 x 1000/uL Normal 4 0 - 0.3 [facility] Neutrophils # Bld Auto 6.04 x 1000/uL Normal 4 2 - 7.6 [facility] Hct VFr Bld Auto 27.3 % Below low normal 02 4 38.5 - 50 [facility] Monocytes/leuk NFr Bld Auto 7.3 % Normal 4 4 - 12 [facility] RBC # Bld Auto 2.86 M/uL Below low normal 4 4 - 6 [facility] Monocytes # Bld Auto 0.65 x 1000/uL Normal 11/09 4 0 - 1 [facility] Basophils # Bld Auto 0.04 x 1000/uL Normal 11/09 4 0 - 1 [facility] MCHC RBC Auto-mCnc 32.2 g/dL Normal 4 31 - 36 [facility] nRBC # Bld Auto 0.0 x 1000/uL Normal 4 0 - 1 [facility] Calcium SerPl-mCnc 9.0 mg/dL Normal 4 8.8 - 10.2 [facility] BUN SerPl-mCnc 25.0 mg/dL Above high normal 11/09/19 2 4 6 - 20 [facility] Chloride SerPl-sCnc 100.0 mmol/L Normal 11/09/19 2 4 98 - 107 [facility] Glucose SerPl-mCnc 188.0 mg/dL Above high normal 10/26 4 70 - 100 [facility] Anion Gap3 SerPl-sCnc 12.0 Normal 4 7 - 17 [facility] Potassium SerPl-sCnc 3.9 mmol/L Normal 02 4 3.3 - 5.3 [facility] HCO3 SerPl-sCnc 26.0 mmol/L Normal 4 20 - 30 [facility] Sodium SerPl-sCnc 138.0 mmol/L Normal 4 136 - 144 [facility] Creat SerPl-mCnc 0.7 mg/dL Normal 4 0.4 - 1.3 [facility] BUN/Creat SerPl 35.7 Above high normal 02 4 8 - 23 [facility] GFR/BSA.pred SerPlBld NYP-PBK-MtYHss >60.0 mL/min/1.73m2 Normal 4 - [facility] B[facility] ANTIBODY SCREEN NEG Normal 11/09/19 2 4 [facility] RH TYPE POS Normal 4 [facility] ABO GROUPING O Normal 4 [facility] BUN SerPl-mCnc 22.0 mg/dL Above high normal 11/09/19 2 4 6 - 20 [facility] HCO3 SerPl-sCnc 23.0 mmol/L Normal 4 20 - 30 [facility] Glucose SerPl-mCnc 150.0 mg/dL Above high normal 10/26 4 70 - 100 [facility] Potassium SerPl-sCnc 3.1 mmol/L Below low normal 4 3.3 - 5.3 [facility] Calcium SerPl-mCnc 7.9 mg/dL Below low normal 11/08 4 8.8 - 10.2 [facility] BUN/Creat SerPl 33.8 Above high normal 02 4 8 - 23 [facility] Creat SerPl-mCnc 0.65 mg/dL Normal 4 0.4 - 1.3 [facility] Sodium SerPl-sCnc 142.0 mmol/L Normal 4 136 - 144 [facility] GFR/BSA.pred SerPlBld YGS-LEA-HtGGjy >60.0 mL/min/1.73m2 Normal 4 - [facility] Anion Gap3 SerPl-sCnc 11.0 Normal 4 7 - 17 [facility] Chloride SerPl-sCnc 108.0 mmol/L Above high normal 4 98 - 107 [facility] Phosphate SerPl-mCnc 3.4 mg/dL Normal 02 4 2.2 - 4.5 [facility] Magnesium SerPl-mCnc 1.6 mg/dL Below low normal 4 1.7 - 2.4 [facility] RDW RBC Auto-Rto 13.2 % Normal 4 11 - 15 [facility] Lymphocytes # Bld Auto 1.11 x 1000/uL Normal 4 0.6 - 3.7 [facility] Platelet # Bld Auto 677.0 x1000/uL Above high normal 0 4 150 - 420 [facility] Eosinophil # Bld Auto 0.29 x 1000/uL Normal 10/26 4 0 - 1 [facility] Monocytes # Bld Auto 0.45 x 1000/uL Normal 11/08 4 0 - 1 [facility] nRBC # Bld Auto 0.0 x 1000/uL Normal 4 0 - 1 [facility] Basophils/leuk NFr Bld Auto 0.6 % Normal 4 0 - 1.4 [facility] Neutrophils # Bld Auto 5.2 x 1000/uL Normal 4 2 - 7.6 [facility] Eosinophil/leuk NFr Bld Auto 4.1 % Normal 4 0 - 5 [facility] Monocytes/leuk NFr Bld Auto 6.3 % Normal 4 4 - 12 [facility] Lymphocytes/leuk NFr Bld Auto 15.6 % Below low normal 4 17 - 50 [facility] MCV RBC Auto 95.4 fL Normal 4 80 - 100 [facility] MCHC RBC Auto-mCnc 33.0 g/dL Normal 4 31 - 36 [facility] Basophils # Bld Auto 0.04 x 1000/uL Normal 11/08 4 0 - 1 [facility] PMV Bld Auto 10.7 fL Normal 4 8 - 12 [facility] WBC # Bld Auto 7.1 x1000/uL Normal 4 4 - 11 [facility] H[facility] VFr Bld Auto 26.7 % Below low normal 02 4 38.5 - 50 [facility] Hgb Bld-mCnc 8.8 g/dL Below low normal 4 13.2 - 17.1 [facility] MCH RBC Qn Auto 31.4 pg Normal 4 27 - 33 [facility] Neutrophils/leuk NFr Bld Auto 73.1 % Above high normal 4 39 - 72 [facility] RBC # Bld Auto 2.8 M/uL Below low normal 4 4 - 6 [facility] nRBC/100 WBC Bld Auto-Rto 0.0 % Normal 4 0 - 1 [facility] Imm Granulocytes # Bld Auto 0.02 x 1000/uL Normal 4 0 - 0.3 [facility] Imm Granulocytes/leuk NFr Bld Auto 0.3 % Normal 4 0 - 1 [facility] Procalcitonin SerPl-mCnc 0.13 ng/mL Normal 4 - [facility] Phosphate SerPl-mCnc 3.2 mg/dL Normal 02 4 2.2 - 4.5 [facility] Anion Gap3 SerPl-sCnc 11.0 Normal 4 7 - 17 [facility] GFR/BSA.pred SerPlBld HRN-IWV-KzYEug >60.0 mL/min/1.73m2 Normal 4 - [facility] BUN/Creat SerPl 34.2 Above high normal 02 4 8 - 23 [facility] Glucose SerPl-mCnc 181.0 mg/dL Above high normal 10/26 4 70 - 100 [facility] Potassium SerPl-sCnc 3.1 mmol/L Below low normal 4 3.3 - 5.3 [facility] Chloride SerPl-sCnc 108.0 mmol/L Above high normal 4 98 - 107 [facility] Sodium SerPl-sCnc 143.0 mmol/L Normal 4 136 - 144 [facility] HCO3 SerPl-sCnc 24.0 mmol/L Normal 4 20 - 30 [facility] BUN SerPl-mCnc 25.0 mg/dL Above high normal 11/08/19 2 4 6 - 20 [facility] Creat SerPl-mCnc 0.73 mg/dL Normal 4 0.4 - 1.3 [facility] Calcium SerPl-mCnc 8.4 mg/dL Below low normal 11/07 4 8.8 - 10.2 [facility] Magnesium SerPl-mCnc 1.8 mg/dL Normal 02 4 1.7 - 2.4 [facility] Lymphocytes # Bld Auto 1.23 x 1000/uL Normal 4 0.6 - 3.7 [facility] Monocytes # Bld Auto 0.48 x 1000/uL Normal 11/07 4 0 - 1 [facility] Imm Granulocytes/leuk NFr Bld Auto 0.7 % Normal 4 0 - 1 [facility] MCHC RBC Auto-mCnc 32.0 g/dL Normal 4 31 - 36 [facility] MCV RBC Auto 97.4 fL Normal 4 80 - 100 [facility] Monocytes/leuk NFr Bld Auto 8.1 % Normal 4 4 - 12 [facility] Lymphocytes/leuk NFr Bld Auto 20.8 % Normal 4 17 - 50 [facility] nRBC/100 WBC Bld Auto-Rto 0.0 % Normal 4 0 - 1 [facility] PMV Bld Auto 10.7 fL Normal 4 8 - 12 [facility] Neutrophils # Bld Auto 3.82 x 1000/uL Normal 4 2 - 7.6 [facility] Basophils/leuk NFr Bld Auto 0.5 % Normal 4 0 - 1.4 [facility] Neutrophils/leuk NFr Bld Auto 64.8 % Normal 4 39 - 72 [facility] Basophils # Bld Auto 0.03 x 1000/uL Normal 11/07 4 0 - 1 [facility] Hct VFr Bld Auto 25.9 % Below low normal 02 4 38.5 - 50 [facility] WBC # Bld Auto 5.9 x1000/uL Normal 4 4 - 11 [facility] Eosinophil # Bld Auto 0.3 x 1000/uL Normal 11/07 4 0 - 1 [facility] RBC # Bld Auto 2.66 M/uL Below low normal 4 4 - 6 [facility] nRBC # Bld Auto 0.0 x 1000/uL Normal 4 0 - 1 [facility] Eosinophil/leuk NFr Bld Auto 5.1 % Above high normal 4 0 - 5 [facility] Platelet # Bld Auto 668.0 x1000/uL Above high normal 0 4 150 - 420 [facility] RDW RBC Auto-Rto 13.3 % Normal 4 11 - 15 [facility] MCH RBC Qn Auto 31.2 pg Normal 4 27 - 33 [facility] Imm Granulocytes # Bld Auto 0.04 x 1000/uL Normal 4 0 - 0.3 [facility] Hgb Bld-mCnc 8.3 g/dL Below low normal 4 13.2 - 17.1 [facility] Calcium SerPl-mCnc 8.8 mg/dL Normal 4 8.8 - 10.2 [facility] Anion Gap3 SerPl-sCnc 9.0 Normal 4 7 - 17 [facility] BUN/Creat SerPl 38.0 Above high normal 02 4 8 - 23 [facility] Glucose SerPl-mCnc 224.0 mg/dL Above high normal 10/26 4 70 - 100 [facility] Sodium SerPl-sCnc 143.0 mmol/L Normal 4 136 - 144 [facility] Creat SerPl-mCnc 0.71 mg/dL Normal 4 0.4 - 1.3 [facility] Potassium SerPl-sCnc 3.4 mmol/L Normal 02 4 3.3 - 5.3 [facility] Chloride SerPl-sCnc 108.0 mmol/L Above high normal 4 98 - 107 [facility] BUN SerPl-mCnc 27.0 mg/dL Above high normal 11/07/19 2 4 6 - 20 [facility] HCO3 SerPl-sCnc 26.0 mmol/L Normal 4 20 - 30 [facility] GFR/BSA.pred SerPlBld ZVC-RSU-ZiNHnr >60.0 mL/min/1.73m2 Normal 4 - [facility] Phosphate SerPl-mCnc 2.9 mg/dL Normal 02 4 2.2 - 4.5 [facility] Magnesium SerPl-mCnc 1.9 mg/dL Normal 02 4 1.7 - 2.4 [facility] aPTT PPP 37.9 seconds Above high normal 4 23 - 31.4 [facility] INR PPP 1.02 Normal 4 0.86 - 1.12 [facility] Prothrombin time 11.3 seconds Normal 4 9.6 - 12.3 [facility] RBC # Bld Auto 2.65 M/uL Below low normal 4 4 - 6 [facility] RDW RBC Auto-Rto 13.4 % Normal 4 11 - 15 [facility] Platelet # Bld Auto 693.0 x1000/uL Above high normal 0 4 150 - 420 [facility] WBC # Bld Auto 8.5 x1000/uL Normal 4 4 - 11 [facility] Imm Granulocytes # Bld Auto 0.08 x 1000/uL Normal 4 0 - 0.3 [facility] Basophils/leuk NFr Bld Auto 0.5 % Normal 4 0 - 1.4 [facility] Basophils # Bld Auto 0.04 x 1000/uL Normal 11/06 4 0 - 1 [facility] PMV Bld Auto 10.7 fL Normal 4 8 - 12 [facility] MCV RBC Auto 96.6 fL Normal 4 80 - 100 [facility] Eosinophil/leuk NFr Bld Auto 2.8 % Normal 4 0 - 5 [facility] Hct VFr Bld Auto 25.6 % Below low normal 02 4 38.5 - 50 [facility] MCHC RBC Auto-mCnc 31.3 g/dL Normal 4 31 - 36 [facility] Monocytes # Bld Auto 0.53 x 1000/uL Normal 11/06 4 0 - 1 [facility] Lymphocytes/leuk NFr Bld Auto 16.2 % Below low normal 4 17 - 50 [facility] Imm Granulocytes/leuk NFr Bld Auto 0.9 % Normal 4 0 - 1 [facility] Eosinophil # Bld Auto 0.24 x 1000/uL Normal 10/26 4 0 - 1 [facility] Lymphocytes # Bld Auto 1.37 x 1000/uL Normal 4 0.6 - 3.7 [facility] Neutrophils # Bld Auto 6.21 x 1000/uL Normal 4 2 - 7.6 [facility] nRBC # Bld Auto 0.0 x 1000/uL Normal 4 0 - 1 [facility] Monocytes/leuk NFr Bld Auto 6.3 % Normal 4 4 - 12 [facility] Hgb Bld-mCnc 8.0 g/dL Below low normal 4 13.2 - 17.1 [facility] nRBC/100 WBC Bld Auto-Rto 0.0 % Normal 4 0 - 1 [facility] Neutrophils/leuk NFr Bld Auto 73.3 % Above high normal 4 39 - 72 [facility] MCH RBC Qn Auto 30.2 pg Normal 4 27 - 33 [facility] Bacteria # Ur Auto Rare Normal 4 - [facility] RBC #/area UrnS Auto <1.0 /HPF Normal 02 4 0 - 2 [facility] WBC #/area UrnS Auto <1.0 /HPF Normal 02 4 0 - 5 [facility] B[facility] CALCIUM OXALATE CRYSTALS, UA Rare Abnormal 4 - [facility] Ketones Ur Strip.auto-mCnc Negative Normal 4 - [facility] Glucose Ur Strip.auto-mCnc Negative Normal 4 - [facility] Bilirub Ur Ql Strip.auto 1+ Abnormal 4 - [facility] Prot Ur Strip.auto-mCnc Trace Normal 4 - [facility] Color Ur Auto Yellow Normal 4 - [facility] Hgb Ur Ql Strip.auto Negative Normal 02 4 - [facility] Sp Gr Ur Refract.auto 1.031 Above high normal 0 4 1.005 - 1.03 [facility] pH Ur Strip.auto 6.5 Normal 4 5.5 - 7.5 [facility] WBC # Ur Strip Negative Normal 4 - [facility] Urobilinogen Ur Strip-mCnc 8.0 mg/dL Above high normal 4 - [facility] Nitrite Ur Ql Strip.auto Negative Normal 4 - [facility] Clarity Ur Refract.auto Cloudy Abnormal 4 - [facility] pCO2 BldA 44.0 mmHg Normal 4 32 - 48 [facility] FIO2 (ARTERIAL BG [place] QUESTION) 60.0 % Normal 4 [facility] TEMPERATURE (ARTERIAL BG [place] QUESTION) 101.1 Fahrenheit Normal 4 [facility] Base excess std BldA Calc-sCnc 2.0 mmol/L Normal 4 - [facility] HCO3 std BldA-sCnc 25.9 mmol/L Normal 4 21 - 28 [facility] B[facility] VENT MODE (ARTERIAL BG [place] QUESTION) AC/VC Normal 4 [facility] pH BldA 7.4 units Normal 4 7.35 - 7.45 [facility] pO2 BldA 75.0 mmHg Below low normal 4 83 - 108 [facility] ACTUAL RESPIRATORY RATE (ARTERIAL BG [place] QUESTION) 18.0 breaths/min Normal 4 [facility] SP02 (ARTERIAL BG [place] QUESTION) 91.0 % Normal 4 [facility] SaO2 % BldA 92.0 % Below low normal 4 94 - 98 [facility] OXYGEN MODE (ARTERIAL BG [place] QUESTION) Ventilator Normal 4 [facility] Lipase SerPl-cCnc 91.0 U/L Above high normal 11/05 4 11 - 55 [facility] NT-proBNP SerPl-mCnc 122.0 pg/mL Normal 02 4 - 125 [facility] Procalcitonin SerPl-mCnc 0.13 ng/mL Normal 4 - [facility] GFR/BSA.pred SerPlBld [id number]-[id number] >60.0 mL/min/1.73m2 Normal 4 - [facility] Anion Gap3 SerPl-sCnc 13.0 Normal 4 7 - 17 [facility] Creat SerPl-mCnc 0.75 mg/dL Normal 4 0.4 - 1.3 [facility] Potassium SerPl-sCnc 3.6 mmol/L Normal 02 4 3.3 - 5.3 [facility] BUN SerPl-mCnc 25.0 mg/dL Above high normal 11/06/19 2 4 6 - 20 [facility] Chloride SerPl-sCnc 108.0 mmol/L Above high normal 4 98 - 107 [facility] Sodium SerPl-sCnc 144.0 mmol/L Normal 4 136 - 144 [facility] Glucose SerPl-mCnc 176.0 mg/dL Above high normal 10/26 4 70 - 100 [facility] Calcium SerPl-mCnc 8.8 mg/dL Normal 4 8.8 - 10.2 [facility] BUN/Creat SerPl 33.3 Above high normal 02 4 8 - 23 [facility] HCO3 SerPl-sCnc 23.0 mmol/L Normal 4 20 - 30 [facility] Trigl SerPl-mCnc 290.0 mg/dL Above high normal 4 - [facility] Magnesium SerPl-mCnc 2.0 mg/dL Normal 02 4 1.7 - 2.4 [facility] Phosphate SerPl-mCnc 3.5 mg/dL Normal 02 4 2.2 - 4.5 [facility] B[facility] ABO GROUPING O Normal 4 [facility] RH TYPE POS Normal 4 [facility] ANTIBODY SCREEN NEG Normal 11/06/19 2 4 [facility] Prothrombin time 11.4 seconds Normal 4 9.6 - 12.3 [facility] INR PPP 1.03 Normal 4 0.86 - 1.12 [facility] aPTT PPP 38.0 seconds Above high normal 4 23 - 31.4 [facility] Monocytes # Bld Auto 0.68 x 1000/uL Normal 11/05 4 0 - 1 [facility] MCHC RBC Auto-mCnc 32.3 g/dL Normal 4 31 - 36 [facility] RBC # Bld Auto 2.55 M/uL Below low normal 4 4 - 6 [facility] Hct VFr Bld Auto 24.8 % Below low normal 02 4 38.5 - 50 [facility] nRBC/100 WBC Bld Auto-Rto 0.0 % Normal 4 0 - 1 [facility] Imm Granulocytes # Bld Auto 0.09 x 1000/uL Normal 4 0 - 0.3 [facility] Eosinophil # Bld Auto 0.27 x 1000/uL Normal 10/26 4 0 - 1 [facility] nRBC # Bld Auto 0.0 x 1000/uL Normal 4 0 - 1 [facility] Lymphocytes # Bld Auto 1.73 x 1000/uL Normal 4 0.6 - 3.7 [facility] Neutrophils/leuk NFr Bld Auto 62.6 % Normal 4 39 - 72 [facility] PMV Bld Auto 10.8 fL Normal 4 8 - 12 [facility] Neutrophils # Bld Auto 4.74 x 1000/uL Normal 4 2 - 7.6 [facility] MCV RBC Auto 97.3 fL Normal 4 80 - 100 [facility] Imm Granulocytes/leuk NFr Bld Auto 1.2 % Above high normal 4 0 - 1 [facility] WBC # Bld Auto 7.6 x1000/uL Normal 4 4 - 11 [facility] Platelet # Bld Auto 712.0 x1000/uL Above high normal 0 4 150 - 420 [facility] Basophils # Bld Auto 0.05 x 1000/uL Normal 11/05 4 0 - 1 [facility] Lymphocytes/leuk NFr Bld Auto 22.9 % Normal 4 17 - 50 [facility] Basophils/leuk NFr Bld Auto 0.7 % Normal 4 0 - 1.4 [facility] MCH RBC Qn Auto 31.4 pg Normal 4 27 - 33 [facility] RDW RBC Auto-Rto 13.5 % Normal 4 11 - 15 [facility] Eosinophil/leuk NFr Bld Auto 3.6 % Normal 4 0 - 5 [facility] Monocytes/leuk NFr Bld Auto 9.0 % Normal 4 4 - 12 [facility] Hgb Bld-mCnc 8.0 g/dL Below low normal 4 13.2 - 17.1 [facility] Sodium SerPl-sCnc 146.0 mmol/L Above high normal 11/04 4 136 - 144 [facility] Glucose SerPl-mCnc 172.0 mg/dL Above high normal 10/26 4 70 - 100 [facility] BUN SerPl-mCnc 25.0 mg/dL Above high normal 11/05/19 2 4 6 - 20 [facility] Creat SerPl-mCnc 0.76 mg/dL Normal 4 0.4 - 1.3 [facility] Anion Gap3 SerPl-sCnc 11.0 Normal 4 7 - 17 [facility] Chloride SerPl-sCnc 109.0 mmol/L Above high normal 4 98 - 107 [facility] BUN/Creat SerPl 32.9 Above high normal 02 4 8 - 23 [facility] GFR/BSA.pred SerPlBld KIT-AXG-QhULal >60.0 mL/min/1.73m2 Normal 4 - [facility] Potassium SerPl-sCnc 3.1 mmol/L Below low normal 4 3.3 - 5.3 [facility] HCO3 SerPl-sCnc 26.0 mmol/L Normal 4 20 - 30 [facility] Calcium SerPl-mCnc 8.8 mg/dL Normal 4 8.8 - 10.2 [facility] Phosphate SerPl-mCnc 2.7 mg/dL Normal 02 4 2.2 - 4.5 [facility] Magnesium SerPl-mCnc 2.2 mg/dL Normal 02 4 1.7 - 2.4 [facility] aPTT PPP 37.3 seconds Above high normal 4 23 - 31.4 [facility] INR PPP 1.01 Normal 4 0.86 - 1.12 [facility] Prothrombin time 11.2 seconds Normal 4 9.6 - 12.3 [facility] nRBC # Bld Auto 0.03 x 1000/uL Normal 4 0 - 1 [facility] Basophils/leuk NFr Bld Auto 0.5 % Normal 4 0 - 1.4 [facility] MCHC RBC Auto-mCnc 32.9 g/dL Normal 4 31 - 36 [facility] Lymphocytes # Bld Auto 1.48 x 1000/uL Normal 4 0.6 - 3.7 [facility] Basophils # Bld Auto 0.04 x 1000/uL Normal 11/04 4 0 - 1 [facility] RDW RBC Auto-Rto 13.2 % Normal 4 11 - 15 [facility] Monocytes/leuk NFr Bld Auto 8.8 % Normal 4 4 - 12 [facility] Monocytes # Bld Auto 0.76 x 1000/uL Normal 11/04 4 0 - 1 [facility] Lymphocytes/leuk NFr Bld Auto 17.1 % Normal 4 17 - 50 [facility] Platelet # Bld Auto 692.0 x1000/uL Above high normal 0 4 150 - 420 [facility] Eosinophil/leuk NFr Bld Auto 2.3 % Normal 4 0 - 5 [facility] Imm Granulocytes/leuk NFr Bld Auto 1.5 % Above high normal 4 0 - 1 [facility] Hct VFr Bld Auto 24.9 % Below low normal 02 4 38.5 - 50 [facility] MCV RBC Auto 95.4 fL Normal 4 80 - 100 [facility] MCH RBC Qn Auto 31.4 pg Normal 4 27 - 33 [facility] WBC # Bld Auto 8.6 x1000/uL Normal 4 4 - 11 [facility] nRBC/100 WBC Bld Auto-Rto 0.3 % Normal 4 0 - 1 [facility] Imm Granulocytes # Bld Auto 0.13 x 1000/uL Normal 4 0 - 0.3 [facility] Hgb Bld-mCnc 8.2 g/dL Below low normal 4 13.2 - 17.1 [facility] Eosinophil # Bld Auto 0.2 x 1000/uL Normal 11/04 4 0 - 1 [facility] RBC # Bld Auto 2.61 M/uL Below low normal 4 4 - 6 [facility] Neutrophils # Bld Auto 6.03 x 1000/uL Normal 4 2 - 7.6 [facility] PMV Bld Auto 10.6 fL Normal 4 8 - 12 [facility] Neutrophils/leuk NFr Bld Auto 69.8 % Normal 4 39 - 72 [facility] Magnesium SerPl-mCnc 2.4 mg/dL Normal 02 4 1.7 - 2.4 [facility] Phosphate SerPl-mCnc 3.1 mg/dL Normal 02 4 2.2 - 4.5 [facility] Trigl SerPl-mCnc 390.0 mg/dL Above high normal 4 - [facility] Calcium SerPl-mCnc 8.5 mg/dL Below low normal 11/03 4 8.8 - 10.2 [facility] Sodium SerPl-sCnc 141.0 mmol/L Normal 4 136 - 144 [facility] GFR/BSA.pred SerPlBld ZYN-[id number]-[id number] >60.0 mL/min/1.73m2 Normal 4 - [facility] Creat SerPl-mCnc 0.77 mg/dL Normal 4 0.4 - 1.3 [facility] BUN/Creat SerPl 36.4 Above high normal 02 4 8 - 23 [facility] Potassium SerPl-sCnc 3.4 mmol/L Normal 02 4 3.3 - 5.3 [facility] Chloride SerPl-sCnc 104.0 mmol/L Normal 11/04/19 2 4 98 - 107 [facility] BUN SerPl-mCnc 28.0 mg/dL Above high normal 11/04/19 2 4 6 - 20 [facility] Anion Gap3 SerPl-sCnc 10.0 Normal 4 7 - 17 [facility] HCO3 SerPl-sCnc 27.0 mmol/L Normal 4 20 - 30 [facility] Glucose SerPl-mCnc 176.0 mg/dL Above high normal 4 70 - 100 [facility] INR PPP 0.96 Normal 4 0.86 - 1.12 [facility] Prothrombin time 10.7 seconds Normal 4 9.6 - 12.3 [facility] aPTT PPP 34.7 seconds Above high normal 4 23 - 31.4 [facility] RDW RBC Auto-Rto 13.2 % Normal 4 11 - 15 [facility] Eosinophil/leuk NFr Bld Auto 1.9 % Normal 4 0 - 5 [facility] Neutrophils/leuk NFr Bld Auto 71.5 % Normal 4 39 - 72 [facility] Neutrophils # Bld Auto 5.65 x 1000/uL Normal 4 2 - 7.6 [facility] MCHC RBC Auto-mCnc 31.8 g/dL Normal 4 31 - 36 [facility] Imm Granulocytes # Bld Auto 0.13 x 1000/uL Normal 4 0 - 0.3 [facility] Hct VFr Bld Auto 25.8 % Below low normal 02 4 38.5 - 50 [facility] Lymphocytes # Bld Auto 1.25 x 1000/uL Normal 4 0.6 - 3.7 [facility] nRBC/100 WBC Bld Auto-Rto 0.3 % Normal 4 0 - 1 [facility] Basophils # Bld Auto 0.05 x 1000/uL Normal 11/03 4 0 - 1 [facility] Basophils/leuk NFr Bld Auto 0.6 % Normal 4 0 - 1.4 [facility] MCV RBC Auto 97.7 fL Normal 4 80 - 100 [facility] RBC # Bld Auto 2.64 M/uL Below low normal 4 4 - 6 [facility] Imm Granulocytes/leuk NFr Bld Auto 1.6 % Above high normal 4 0 - 1 [facility] Platelet # Bld Auto 612.0 x1000/uL Above high normal 0 4 150 - 420 [facility] MCH RBC Qn Auto 31.1 pg Normal 4 27 - 33 [facility] Monocytes # Bld Auto 0.68 x 1000/uL Normal 11/03 4 0 - 1 [facility] nRBC # Bld Auto 0.02 x 1000/uL Normal 4 0 - 1 [facility] Monocytes/leuk NFr Bld Auto 8.6 % Normal 4 4 - 12 [facility] Lymphocytes/leuk NFr Bld Auto 15.8 % Below low normal 4 17 - 50 [facility] Eosinophil # Bld Auto 0.15 x 1000/uL Normal 06 4 0 - 1 [facility] WBC # Bld Auto 7.9 x1000/uL Normal 4 4 - 11 [facility] PMV Bld Auto 11.0 fL Normal 4 8 - 12 [facility] Hgb Bld-mCnc 8.2 g/dL Below low normal 4 13.2 - 17.1 [facility] HCO3 SerPl-sCnc 27.0 mmol/L Normal 4 20 - 30 [facility] Glucose SerPl-mCnc 170.0 mg/dL Above high normal 4 70 - 100 [facility] BUN SerPl-mCnc 29.0 mg/dL Above high normal 11/03/19 2 4 6 - 20 [facility] BUN/Creat SerPl 37.7 Above high normal 02 4 8 - 23 [facility] GFR/BSA.pred SerPlBld JAE-UTY-IiDNof >60.0 mL/min/1.73m2 Normal 4 - [facility] Calcium SerPl-mCnc 8.4 mg/dL Below low normal 11/02 4 8.8 - 10.2 [facility] Anion Gap3 SerPl-sCnc 13.0 Normal 4 7 - 17 [facility] Chloride SerPl-sCnc 106.0 mmol/L Normal 11/03/19 2 4 98 - 107 [facility] Potassium SerPl-sCnc 3.7 mmol/L Normal 02 4 3.3 - 5.3 [facility] Creat SerPl-mCnc 0.77 mg/dL Normal 4 0.4 - 1.3 [facility] Sodium SerPl-sCnc 146.0 mmol/L Above high normal 11/02 4 136 - 144 [facility] Phosphate SerPl-mCnc 3.8 mg/dL Normal 02 4 2.2 - 4.5 [facility] Magnesium SerPl-mCnc 2.3 mg/dL Normal 02 4 1.7 - 2.4 [facility] B[facility] ABO GROUPING O Normal 4 [facility] ANTIBODY SCREEN NEG Normal 11/03/19 2 4 [facility] B[facility] RH TYPE POS Normal 4 [facility] Phosphate SerPl-mCnc 3.1 mg/dL Normal 02 4 2.2 - 4.5 [facility] Calcium SerPl-mCnc 8.9 mg/dL Normal 4 8.8 - 10.2 [facility] Anion Gap3 SerPl-sCnc 12.0 Normal 4 7 - 17 [facility] Creat SerPl-mCnc 0.7 mg/dL Normal 4 0.4 - 1.3 [facility] Chloride SerPl-sCnc 105.0 mmol/L Normal 11/03/19 2 4 98 - 107 [facility] BUN/Creat SerPl 42.9 Above high normal 02 4 8 - 23 [facility] HCO3 SerPl-sCnc 28.0 mmol/L Normal 4 20 - 30 [facility] GFR/BSA.pred SerPlBld LTS-RBY-CnOGih >60.0 mL/min/1.73m2 Normal 4 - [facility] Potassium SerPl-sCnc 2.9 mmol/L Below low normal 4 3.3 - 5.3 [facility] BUN SerPl-mCnc 30.0 mg/dL Above high normal 11/03/19 2 4 6 - 20 [facility] Glucose SerPl-mCnc 149.0 mg/dL Above high normal 4 70 - 100 [facility] Sodium SerPl-sCnc 145.0 mmol/L Above high normal 11/02 4 136 - 144 [facility] Magnesium SerPl-mCnc 2.4 mg/dL Normal 02 4 1.7 - 2.4 [facility] Prothrombin time 10.9 seconds Normal 4 9.6 - 12.3 [facility] aPTT PPP 35.0 seconds Above high normal 4 23 - 31.4 [facility] INR PPP 0.98 Normal 4 0.86 - 1.12 [facility] Basophils # Bld Auto 0.03 x 1000/uL Normal 11/02 4 0 - 1 [facility] Hgb Bld-mCnc 8.1 g/dL Below low normal 4 13.2 - 17.1 [facility] Monocytes/leuk NFr Bld Auto 7.5 % Normal 4 4 - 12 [facility] Imm Granulocytes/leuk NFr Bld Auto 1.3 % Above high normal 4 0 - 1 [facility] Platelet # Bld Auto 548.0 x1000/uL Above high normal 0 4 150 - 420 [facility] Eosinophil/leuk NFr Bld Auto 1.8 % Normal 4 0 - 5 [facility] Neutrophils # Bld Auto 5.87 x 1000/uL Normal 4 2 - 7.6 [facility] nRBC # Bld Auto 0.02 x 1000/uL Normal 4 0 - 1 [facility] Neutrophils/leuk NFr Bld Auto 71.4 % Normal 4 39 - 72 [facility] nRBC/100 WBC Bld Auto-Rto 0.2 % Normal 4 0 - 1 [facility] RBC # Bld Auto 2.55 M/uL Below low normal 4 4 - 6 [facility] PMV Bld Auto 11.2 fL Normal 4 8 - 12 [facility] Lymphocytes # Bld Auto 1.45 x 1000/uL Normal 4 0.6 - 3.7 [facility] WBC # Bld Auto 8.2 x1000/uL Normal 4 4 - 11 [facility] Basophils/leuk NFr Bld Auto 0.4 % Normal 4 0 - 1.4 [facility] Eosinophil # Bld Auto 0.15 x 1000/uL Normal 06/ 4 0 - 1 [facility] MCV RBC Auto 93.3 fL Normal 4 80 - 100 [facility] Lymphocytes/leuk NFr Bld Auto 17.6 % Normal 4 17 - 50 [facility] Monocytes # Bld Auto 0.62 x 1000/uL Normal 11/02 4 0 - 1 [facility] RDW RBC Auto-Rto 13.0 % Normal 4 11 - 15 [facility] MCH RBC Qn Auto 31.8 pg Normal 4 27 - 33 [facility] Hct VFr Bld Auto 23.8 % Below low normal 02 4 38.5 - 50 [facility] MCHC RBC Auto-mCnc 34.0 g/dL Normal 4 31 - 36 [facility] Imm Granulocytes # Bld Auto 0.11 x 1000/uL Normal 4 0 - 0.3 [facility] Phosphate SerPl-mCnc 3.1 mg/dL Normal 02 4 2.2 - 4.5 [facility] Anion Gap3 SerPl-sCnc 13.0 Normal 4 7 - 17 [facility] GFR/BSA.pred SerPlBld DYT-WCQ-UuKFyw >60.0 mL/min/1.73m2 Normal 4 - [facility] Calcium SerPl-mCnc 9.0 mg/dL Normal 4 8.8 - 10.2 [facility] Glucose SerPl-mCnc 151.0 mg/dL Above high normal 4 70 - 100 [facility] Creat SerPl-mCnc 0.66 mg/dL Normal 4 0.4 - 1.3 [facility] BUN SerPl-mCnc 23.0 mg/dL Above high normal 11/02/19 2 4 6 - 20 [facility] Potassium SerPl-sCnc 3.7 mmol/L Normal 02 4 3.3 - 5.3 [facility] BUN/Creat SerPl 34.8 Above high normal 02 4 8 - 23 [facility] Chloride SerPl-sCnc 104.0 mmol/L Normal 11/02/19 2 4 98 - 107 [facility] Sodium SerPl-sCnc 144.0 mmol/L Normal 4 136 - 144 [facility] HCO3 SerPl-sCnc 27.0 mmol/L Normal 4 20 - 30 [facility] Magnesium SerPl-mCnc 2.1 mg/dL Normal 02 4 1.7 - 2.4 [facility] Monocytes # Bld Auto 0.72 x 1000/uL Normal 11/01 4 0 - 1 [facility] MCHC RBC Auto-mCnc 33.6 g/dL Normal 4 31 - 36 [facility] Basophils/leuk NFr Bld Auto 0.5 % Normal 4 0 - 1.4 [facility] nRBC/100 WBC Bld Auto-Rto 0.2 % Normal 4 0 - 1 [facility] Lymphocytes # Bld Auto 1.53 x 1000/uL Normal 4 0.6 - 3.7 [facility] Neutrophils # Bld Auto 6.78 x 1000/uL Normal 4 2 - 7.6 [facility] PMV Bld Auto 11.7 fL Normal 4 8 - 12 [facility] nRBC # Bld Auto 0.02 x 1000/uL Normal 4 0 - 1 [facility] Lymphocytes/leuk NFr Bld Auto 16.2 % Below low normal 4 17 - 50 [facility] Hct VFr Bld Auto 26.5 % Below low normal 02 4 38.5 - 50 [facility] Eosinophil # Bld Auto 0.22 x 1000/uL Normal 06/ 4 0 - 1 [facility] MCH RBC Qn Auto 31.8 pg Normal 4 27 - 33 [facility] WBC # Bld Auto 9.4 x1000/uL Normal 4 4 - 11 [facility] Platelet # Bld Auto 499.0 x1000/uL Above high normal 0 4 150 - 420 [facility] Monocytes/leuk NFr Bld Auto 7.6 % Normal 4 4 - 12 [facility] RDW RBC Auto-Rto 12.8 % Normal 4 11 - 15 [facility] Imm Granulocytes # Bld Auto 0.12 x 1000/uL Normal 4 0 - 0.3 [facility] Imm Granulocytes/leuk NFr Bld Auto 1.3 % Above high normal 4 0 - 1 [facility] MCV RBC Auto 94.6 fL Normal 4 80 - 100 [facility] Basophils # Bld Auto 0.05 x 1000/uL Normal 11/01 4 0 - 1 [facility] Neutrophils/leuk NFr Bld Auto 72.1 % Above high normal 4 39 - 72 [facility] RBC # Bld Auto 2.8 M/uL Below low normal 4 4 - 6 [facility] Eosinophil/leuk NFr Bld Auto 2.3 % Normal 4 0 - 5 [facility] Hgb Bld-mCnc 8.9 g/dL Below low normal 4 13.2 - 17.1 [facility] Anion Gap3 SerPl-sCnc 13.0 Normal 4 7 - 17 [facility] BUN SerPl-mCnc 23.0 mg/dL Above high normal 11/01/19 2 4 6 - 20 [facility] Glucose SerPl-mCnc 171.0 mg/dL Above high normal 4 70 - 100 [facility] Potassium SerPl-sCnc 3.7 mmol/L Normal 02 4 3.3 - 5.3 [facility] HCO3 SerPl-sCnc 23.0 mmol/L Normal 4 20 - 30 [facility] Sodium SerPl-sCnc 140.0 mmol/L Normal 4 136 - 144 [facility] Chloride SerPl-sCnc 104.0 mmol/L Normal 11/01/19 2 4 98 - 107 [facility] BUN/Creat SerPl 35.4 Above high normal 02 4 8 - 23 [facility] GFR/BSA.pred SerPlBld [id number]-[id number] >60.0 mL/min/1.73m2 Normal 4 - [facility] Calcium SerPl-mCnc 8.8 mg/dL Normal 4 8.8 - 10.2 [facility] Creat SerPl-mCnc 0.65 mg/dL Normal 4 0.4 - 1.3 [facility] Magnesium SerPl-mCnc 2.2 mg/dL Normal 02 4 1.7 - 2.4 [facility] Phosphate SerPl-mCnc 3.8 mg/dL Normal 02 4 2.2 - 4.5 [facility] Basophils # Bld Auto 0.03 x 1000/uL Normal 10/31 4 0 - 1 [facility] Lymphocytes # Bld Auto 1.21 x 1000/uL Normal 4 0.6 - 3.7 [facility] nRBC/100 WBC Bld Auto-Rto 0.0 % Normal 4 0 - 1 [facility] Lymphocytes/leuk NFr Bld Auto 14.6 % Below low normal 4 17 - 50 [facility] MCHC RBC Auto-mCnc 32.5 g/dL Normal 4 31 - 36 [facility] Neutrophils/leuk NFr Bld Auto 71.1 % Normal 4 39 - 72 [facility] MCV RBC Auto 96.1 fL Normal 4 80 - 100 [facility] MCH RBC Qn Auto 31.2 pg Normal 4 27 - 33 [facility] Eosinophil/leuk NFr Bld Auto 4.0 % Normal 4 0 - 5 [facility] Imm Granulocytes # Bld Auto 0.06 x 1000/uL Normal 4 0 - 0.3 [facility] Basophils/leuk NFr Bld Auto 0.4 % Normal 4 0 - 1.4 [facility] RBC # Bld Auto 2.79 M/uL Below low normal 4 4 - 6 [facility] nRBC # Bld Auto 0.0 x 1000/uL Normal 4 0 - 1 [facility] Hgb Bld-mCnc 8.7 g/dL Below low normal 4 13.2 - 17.1 [facility] Imm Granulocytes/leuk NFr Bld Auto 0.7 % Normal 4 0 - 1 [facility] Hct VFr Bld Auto 26.8 % Below low normal 02 4 38.5 - 50 [facility] RDW RBC Auto-Rto 12.7 % Normal 4 11 - 15 [facility] WBC # Bld Auto 8.3 x1000/uL Normal 4 4 - 11 [facility] Neutrophils # Bld Auto 5.88 x 1000/uL Normal 4 2 - 7.6 [facility] Monocytes # Bld Auto 0.76 x 1000/uL Normal 10/31 4 0 - 1 [facility] Monocytes/leuk NFr Bld Auto 9.2 % Normal 4 4 - 12 [facility] Platelet # Bld Auto 387.0 x1000/uL Normal 4 150 - 420 [facility] PMV Bld Auto 11.8 fL Normal 4 8 - 12 [facility] Eosinophil # Bld Auto 0.33 x 1000/uL Normal 4 0 - 1 [facility] pH BldA 7.45 units Normal 4 7.35 - 7.45 [facility] SaO2 % BldA 99.0 % Above high normal 4 94 - 98 [facility] Base excess std BldA Calc-sCnc 1.0 mmol/L Normal 4 - [facility] pCO2 BldA 35.0 mmHg Normal 4 32 - 48 [facility] BKR TEMPERATURE (ARTERIAL BG DOMINGO QUESTION) 98.1 Fahrenheit Normal 4 [facility] HCO3 std BldA-sCnc 24.0 mmol/L Normal 4 21 - 28 [facility] pO2 BldA 131.0 mmHg Above high normal 4 83 - 108 [facility] RH TYPE POS Normal 4 [facility] ABO GROUPING O Normal 4 [facility] ANTIBODY SCREEN NEG Normal 10/31/19 2 4 [facility] Magnesium SerPl-mCnc 2.1 mg/dL Normal 02 4 1.7 - 2.4 [facility] BUN SerPl-mCnc 23.0 mg/dL Above high normal 10/31/19 2 4 6 - 20 [facility] Sodium SerPl-sCnc 143.0 mmol/L Normal 4 136 - 144 [facility] HCO3 SerPl-sCnc 25.0 mmol/L Normal 4 20 - 30 [facility] Calcium SerPl-mCnc 8.3 mg/dL Below low normal 10/30 4 8.8 - 10.2 [facility] BUN/Creat SerPl 35.4 Above high normal 02 4 8 - 23 [facility] Anion Gap3 SerPl-sCnc 11.0 Normal 4 7 - 17 [facility] Glucose SerPl-mCnc 164.0 mg/dL Above high normal 4 70 - 100 [facility] Chloride SerPl-sCnc 107.0 mmol/L Normal 10/31/19 2 4 98 - 107 [facility] Creat SerPl-mCnc 0.65 mg/dL Normal 4 0.4 - 1.3 [facility] GFR/BSA.pred SerPlBld LRH-QNU-PiVLst >60.0 mL/min/1.73m2 Normal 4 - [facility] Potassium SerPl-sCnc 3.3 mmol/L Normal 02 4 3.3 - 5.3 [facility] Phosphate SerPl-mCnc 3.7 mg/dL Normal 02 4 2.2 - 4.5 [facility] Platelet # Bld Auto 366.0 x1000/uL Normal 4 150 - 420 [facility] MCV RBC Auto 95.6 fL Normal 4 80 - 100 [facility] RBC # Bld Auto 2.93 M/uL Below low normal 4 4 - 6 [facility] Monocytes/leuk NFr Bld Auto 10.5 % Normal 4 4 - 12 [facility] Lymphocytes # Bld Auto 1.54 x 1000/uL Normal 4 0.6 - 3.7 [facility] nRBC/100 WBC Bld Auto-Rto 0.0 % Normal 4 0 - 1 [facility] Imm Granulocytes # Bld Auto 0.06 x 1000/uL Normal 4 0 - 0.3 [facility] Neutrophils # Bld Auto 6.5 x 1000/uL Normal 4 2 - 7.6 [facility] Monocytes # Bld Auto 0.98 x 1000/uL Normal 10/30 4 0 - 1 [facility] Basophils/leuk NFr Bld Auto 0.4 % Normal 4 0 - 1.4 [facility] Imm Granulocytes/leuk NFr Bld Auto 0.6 % Normal 4 0 - 1 [facility] MCHC RBC Auto-mCnc 32.5 g/dL Normal 4 31 - 36 [facility] Eosinophil/leuk NFr Bld Auto 2.6 % Normal 4 0 - 5 [facility] MCH RBC Qn Auto 31.1 pg Normal 4 27 - 33 [facility] nRBC # Bld Auto 0.0 x 1000/uL Normal 4 0 - 1 [facility] Hgb Bld-mCnc 9.1 g/dL Below low normal 4 13.2 - 17.1 [facility] Hct VFr Bld Auto 28.0 % Below low normal 02 4 38.5 - 50 [facility] Neutrophils/leuk NFr Bld Auto 69.4 % Normal 4 39 - 72 [facility] Eosinophil # Bld Auto 0.24 x 1000/uL Normal 06/ 4 0 - 1 [facility] WBC # Bld Auto 9.4 x1000/uL Normal 4 4 - 11 [facility] PMV Bld Auto 11.6 fL Normal 4 8 - 12 [facility] RDW RBC Auto-Rto 12.8 % Normal 4 11 - 15 [facility] Basophils # Bld Auto 0.04 x 1000/uL Normal 10/30 4 0 - 1 [facility] Lymphocytes/leuk NFr Bld Auto 16.5 % Below low normal 4 17 - 50 [facility] GFR/BSA.pred SerPlBld HMN-[id number] >60.0 mL/min/1.73m2 Normal 4 - [facility] BUN SerPl-mCnc 27.0 mg/dL Above high normal 10/30/19 2 4 6 - 20 [facility] Creat SerPl-mCnc 0.73 mg/dL Normal 4 0.4 - 1.3 [facility] Glucose SerPl-mCnc 230.0 mg/dL Above high normal 4 70 - 100 [facility] Calcium SerPl-mCnc 8.4 mg/dL Below low normal 10/29 4 8.8 - 10.2 [facility] BUN/Creat SerPl 37.0 Above high normal 02 4 8 - 23 [facility] Sodium SerPl-sCnc 145.0 mmol/L Above high normal 10/29 4 136 - 144 [facility] Chloride SerPl-sCnc 107.0 mmol/L Normal 10/30/19 2 4 98 - 107 [facility] Potassium SerPl-sCnc 3.6 mmol/L Normal 02 4 3.3 - 5.3 [facility] HCO3 SerPl-sCnc 26.0 mmol/L Normal 4 20 - 30 [facility] Anion Gap3 SerPl-sCnc 12.0 Normal 4 7 - 17 [facility] Phosphate SerPl-mCnc 2.0 mg/dL Below low normal 4 2.2 - 4.5 [facility] Magnesium SerPl-mCnc 2.0 mg/dL Normal 02 4 1.7 - 2.4 [facility] Imm Granulocytes # Bld Auto 0.09 x 1000/uL Normal 4 0 - 0.3 [facility] PMV Bld Auto 11.6 fL Normal 4 8 - 12 [facility] Monocytes # Bld Auto 1.14 x 1000/uL Above high normal 4 0 - 1 [facility] MCV RBC Auto 93.4 fL Normal 4 80 - 100 [facility] RBC # Bld Auto 3.01 M/uL Below low normal 4 4 - 6 [facility] Neutrophils # Bld Auto 7.8 x 1000/uL Above high normal 4 2 - 7.6 [facility] Basophils/leuk NFr Bld Auto 0.3 % Normal 4 0 - 1.4 [facility] Hct VFr Bld Auto 28.1 % Below low normal 02 4 38.5 - 50 [facility] RDW RBC Auto-Rto 12.6 % Normal 4 11 - 15 [facility] Neutrophils/leuk NFr Bld Auto 74.4 % Above high normal 4 39 - 72 [facility] Basophils # Bld Auto 0.03 x 1000/uL Normal 10/29 4 0 - 1 [facility] Lymphocytes/leuk NFr Bld Auto 12.8 % Below low normal 4 17 - 50 [facility] nRBC # Bld Auto 0.0 x 1000/uL Normal 4 0 - 1 [facility] RBC Qn Auto 31.9 pg Normal 4 27 - 33 [facility] Eosinophil/leuk NFr Bld Auto 0.7 % Normal 4 0 - 5 [facility] Eosinophil # Bld Auto 0.07 x 1000/uL Normal 4 0 - 1 [facility]C RBC Auto-mCnc 34.2 g/dL Normal 4 31 - 36 [facility] Hgb Bld-mCnc 9.6 g/dL Below low normal 4 13.2 - 17.1 [facility] WBC # Bld Auto 10.5 x1000/uL Normal 4 4 - 11 [facility] Lymphocytes # Bld Auto 1.34 x 1000/uL Normal 4 0.6 - 3.7 [facility] Platelet # Bld Auto 374.0 x1000/uL Normal 4 150 - 420 [facility] Monocytes/leuk NFr Bld Auto 10.9 % Normal 4 4 - 12 [facility] Imm Granulocytes/leuk NFr Bld Auto 0.9 % Normal 4 0 - 1 [facility] nRBC/100 WBC Bld Auto-Rto 0.0 % Normal 4 0 - 1 [facility] Troponin T SerPl HS-mCnc -12.0 ng/L Normal 4 [facility] Troponin T SerPl HS-mCnc 9.0 ng/L Normal 4 [facility] INR PPP 0.98 Normal 4 0.86 - 1.12 [facility] Prothrombin time 10.9 seconds Normal 4 9.6 - 12.3 [facility] aPTT PPP 35.3 seconds Above high normal 4 23 - 31.4 [facility] Base excess std BldA Calc-sCnc 7.0 mmol/L Above high normal 4 - [facility] pCO2 BldA 50.0 mmHg Above high normal 4 32 - 48 [facility] BKR FIO2 (ARTERIAL BG [place] QUESTION) 70.0 % Normal 4 [facility] pO2 BldA 132.0 mmHg Above high normal 4 83 - 108 [facility] pH BldA 7.42 units Normal 4 7.35 - 7.45 [facility] HCO3 std BldA-sCnc 31.1 mmol/L Above high normal 4 21 - 28 [facility] SP02 (ARTERIAL BG [place] QUESTION) 96.0 % Normal 4 [facility] TEMPERATURE (ARTERIAL BG [place] QUESTION) 101.8 Fahrenheit Normal 4 [facility] OXYGEN MODE (ARTERIAL BG [place] QUESTION) Ventilator Normal 4 [facility] VENT SETTINGS (ARTERIAL BG [place] QUESTION) Pressure Support Normal 4 [facility] VENT MODE (ARTERIAL BG [place] QUESTION) AC/VC Normal 4 [facility] SaO2 % BldA 98.0 % Normal 4 94 - 98 [facility] Troponin T SerPl HS-mCnc 35.0 ng/L Above high normal 4 - [facility] Prealb SerPl Neph-mCnc 16.6 mg/dL Below low normal 4 20 - 40 [facility] Chloride SerPl-sCnc 104.0 mmol/L Normal 10/29/19 2 4 98 - 107 [facility] BUN SerPl-mCnc 31.0 mg/dL Above high normal 10/29/19 2 4 6 - 20 [facility] GFR/BSA.pred SerPlBld TEA-IAQ-XrBEvp >60.0 mL/min/1.73m2 Normal 4 - [facility] Sodium SerPl-sCnc 143.0 mmol/L Normal 4 136 - 144 [facility] Anion Gap3 SerPl-sCnc 10.0 Normal 4 7 - 17 [facility] HCO3 SerPl-sCnc 29.0 mmol/L Normal 4 20 - 30 [facility] BUN/Creat SerPl 44.9 Above high normal 02 4 8 - 23 [facility] Creat SerPl-mCnc 0.69 mg/dL Normal 4 0.4 - 1.3 [facility] Potassium SerPl-sCnc 3.8 mmol/L Normal 02 4 3.3 - 5.3 [facility] Calcium SerPl-mCnc 8.8 mg/dL Normal 4 8.8 - 10.2 [facility] Glucose SerPl-mCnc 238.0 mg/dL Above high normal 4 70 - 100 [facility] Magnesium SerPl-mCnc 2.3 mg/dL Normal 02 4 1.7 - 2.4 [facility] Lipase SerPl-cCnc 42.0 U/L Normal 4 11 - 55 [facility] Phosphate SerPl-mCnc 3.0 mg/dL Normal 02 4 2.2 - 4.5 [facility] Monocytes # Bld Auto 0.92 x 1000/uL Normal 10/28 4 0 - 1 [facility] Imm Granulocytes/leuk NFr Bld Auto 0.9 % Normal 4 0 - 1 [facility] RDW RBC Auto-Rto 12.4 % Normal 4 11 - 15 [facility] Eosinophil # Bld Auto 0.08 x 1000/uL Normal 06/ 4 0 - 1 [facility] Platelet # Bld Auto 326.0 x1000/uL Normal 4 150 - 420 [facility] Monocytes/leuk NFr Bld Auto 9.5 % Normal 4 4 - 12 [facility] RBC Auto-mCnc 32.7 g/dL Normal 4 31 - 36 [facility] RBC Qn Auto 31.5 pg Normal 4 27 - 33 [facility] MCV RBC Auto 96.5 fL Normal 4 80 - 100 [facility] Neutrophils/leuk NFr Bld Auto 77.7 % Above high normal 4 39 - 72 [facility] Basophils/leuk NFr Bld Auto 0.2 % Normal 4 0 - 1.4 [facility] nRBC # Bld Auto 0.0 x 1000/uL Normal 4 0 - 1 [facility] Lymphocytes # Bld Auto 1.06 x 1000/uL Normal 4 0.6 - 3.7 [facility] Hgb Bld-mCnc 9.8 g/dL Below low normal 4 13.2 - 17.1 [facility] nRBC/100 WBC Bld Auto-Rto 0.0 % Normal 4 0 - 1 [facility] PMV Bld Auto 11.6 fL Normal 4 8 - 12 [facility] Imm Granulocytes # Bld Auto 0.09 x 1000/uL Normal 4 0 - 0.3 [facility] WBC # Bld Auto 9.7 x1000/uL Normal 4 4 - 11 [facility] Basophils # Bld Auto 0.02 x 1000/uL Normal 10/28 4 0 - 1 [facility] Eosinophil/leuk NFr Bld Auto 0.8 % Normal 4 0 - 5 [facility] RBC # Bld Auto 3.11 M/uL Below low normal 4 4 - 6 [facility] Lymphocytes/leuk NFr Bld Auto 10.9 % Below low normal 4 17 - 50 [facility] Hct VFr Bld Auto 30.0 % Below low normal 02 4 38.5 - 50 [facility] Neutrophils # Bld Auto 7.56 x 1000/uL Normal 4 2 - 7.6 [facility] HCO3 std BldA-sCnc 32.2 mmol/L Above high normal 06 4 21 - 28 [facility] ACTUAL RESPIRATORY RATE (ARTERIAL BG [place] QUESTION) 17.0 breaths/min Normal 4 [facility] pCO2 BldA 53.0 mmHg Above high normal 4 32 - 48 [facility] OXYGEN MODE (ARTERIAL BG [place] QUESTION) High Flow Nasal Cannula Normal 4 [facility] pO2 BldA 123.0 mmHg Above high normal 4 83 - 108 [facility] LITER FLOW (ARTERIAL BG [place] QUESTION) 40.0 L/min Normal 4 [facility] FIO2 (ARTERIAL BG [place] QUESTION) 100.0 % Normal 4 [facility] SaO2 % BldA 98.0 % Normal 4 94 - 98 [facility] TEMPERATURE (ARTERIAL BG [place] QUESTION) 101.8 Fahrenheit Normal 4 [facility] Base excess std BldA Calc-sCnc 7.0 mmol/L Above high normal 4 - [facility] pH BldA 7.41 units Normal 4 7.35 - 7.45 [facility] SP02 (ARTERIAL BG [place] QUESTION) 96.0 % Normal 4 [facility] Trigl SerPl-mCnc 233.0 mg/dL Above high normal 4 - [facility] Phosphate SerPl-mCnc 3.0 mg/dL Normal 02 4 2.2 - 4.5 [facility] Anion Gap3 SerPl-sCnc 11.0 Normal 4 7 - 17 [facility] BUN/Creat SerPl 41.8 Above high normal 02 4 8 - 23 [facility] Potassium SerPl-sCnc 4.3 mmol/L Normal 02 4 3.3 - 5.3 [facility] Chloride SerPl-sCnc 102.0 mmol/L Normal 10/29/19 2 4 98 - 107 [facility] Glucose SerPl-mCnc 219.0 mg/dL Above high normal 4 70 - 100 [facility] Creat SerPl-mCnc 0.67 mg/dL Normal 4 0.4 - 1.3 [facility] BUN SerPl-mCnc 28.0 mg/dL Above high normal 10/29/19 2 4 6 - 20 [facility] Calcium SerPl-mCnc 9.5 mg/dL Normal 4 8.8 - 10.2 [facility] HCO3 SerPl-sCnc 30.0 mmol/L Normal 4 20 - 30 [facility] Sodium SerPl-sCnc 143.0 mmol/L Normal 4 136 - 144 [facility] GFR/BSA.pred SerPlBld TXT-[id number] >60.0 mL/min/1.73m2 Normal 4 - [facility] Bilirub SerPl-mCnc 0.7 mg/dL Normal 4 - [facility] ALP SerPl-cCnc 114.0 U/L Normal 4 9 - 122 [facility] AST/ALT SerPl-cRto 0.9 Normal 4 - [facility] ALT SerPl w/o P-5'-P-cCnc 69.0 U/L Above high normal 4 9 - 59 [facility] AST SerPl w P-5'-P-cCnc 65.0 U/L Above high normal 4 10 - 35 [facility] Bilirub Direct SerPl-mCnc 0.3 mg/dL Normal 4 - [facility] Magnesium SerPl-mCnc 2.2 mg/dL Normal 02 4 1.7 - 2.4 [facility] Lactate SerPl-sCnc 1.2 mmol/L Normal 4 0.5 - 2.2 [facility] Eosinophil # Bld Auto 0.13 x 1000/uL Normal 06/ 4 0 - 1 [facility] Basophils/leuk NFr Bld Auto 0.4 % Normal 4 0 - 1.4 [facility] Hct VFr Bld Auto 34.1 % Below low normal 02 4 38.5 - 50 [facility] Basophils # Bld Auto 0.05 x 1000/uL Normal 10/28 4 0 - 1 [facility] MCV RBC Auto 95.3 fL Normal 4 80 - 100 [facility] Imm Granulocytes # Bld Auto 0.13 x 1000/uL Normal 4 0 - 0.3 [facility] Monocytes/leuk NFr Bld Auto 8.7 % Normal 4 4 - 12 [facility] RBC # Bld Auto 3.58 M/uL Below low normal 4 4 - 6 [facility] Eosinophil/leuk NFr Bld Auto 1.2 % Normal 4 0 - 5 [facility] Platelet # Bld Auto 373.0 x1000/uL Normal 4 150 - 420 [facility] Neutrophils # Bld Auto 8.86 x 1000/uL Above high normal 4 2 - 7.6 [facility] RBC Auto-mCnc 33.1 g/dL Normal 4 31 - 36 [facility] RDW RBC Auto-Rto 12.4 % Normal 4 11 - 15 [facility] Neutrophils/leuk NFr Bld Auto 78.4 % Above high normal 4 39 - 72 [facility] PMV Bld Auto 12.0 fL Normal 4 8 - 12 [facility] Hgb Bld-mCnc 11.3 g/dL Below low normal 4 13.2 - 17.1 [facility] nRBC/100 WBC Bld Auto-Rto 0.0 % Normal 4 0 - 1 [facility] WBC # Bld Auto 11.3 x1000/uL Above high normal 02 4 4 - 11 [facility] Lymphocytes # Bld Auto 1.14 x 1000/uL Normal 4 0.6 - 3.7 [facility] Imm Granulocytes/leuk NFr Bld Auto 1.2 % Above high normal 4 0 - 1 [facility] nRBC # Bld Auto 0.0 x 1000/uL Normal 4 0 - 1 [facility] Lymphocytes/leuk NFr Bld Auto 10.1 % Below low normal 4 17 - 50 [facility] Monocytes # Bld Auto 0.98 x 1000/uL Normal 10/28 4 0 - 1 [facility] RBC Qn Auto 31.6 pg Normal 4 27 - 33 [facility] WBC #/area UrnS Auto 1.0 /HPF Normal 02 4 0 - 5 [facility] RBC #/area UrnS Auto 67.0 /HPF Above high normal 4 0 - 2 [facility] Sp Gr Ur Refract.auto 1.032 Above high normal 0 4 1.005 - 1.03 [facility] Clarity Ur Refract.auto Cloudy Abnormal 4 - [facility] Hgb Ur Ql Strip.auto 1+ Abnormal 02 4 - [facility] WBC # Ur Strip Negative Normal 4 - [facility] Glucose Ur Strip.auto-mCnc Negative Normal 4 - [facility] pH Ur Strip.auto 7.5 Normal 4 5.5 - 7.5 [facility] Ketones Ur Strip.auto-mCnc Negative Normal 4 - [facility] Urobilinogen Ur Strip-mCnc >12.0 mg/dL Above high normal 4 - [facility] Prot Ur Strip.auto-mCnc 1+ Abnormal 4 - [facility] Nitrite Ur Ql Strip.auto Negative Normal 4 - [facility] Color Ur Auto Yellow Normal 4 - [facility] Bilirub Ur Ql Strip.auto Negative Normal 4 - [facility] CRP SerPl HS-mCnc 99.5 mg/L Above high normal 10/28 4 - [facility] Albumin SerPl BCG-mCnc 3.3 g/dL Below low normal 4 3.6 - 5.1 [facility] Phosphate SerPl-mCnc 3.5 mg/dL Normal 02 4 2.2 - 4.5 [facility] Calcium SerPl-mCnc 9.2 mg/dL Normal 4 8.8 - 10.2 [facility] BUN SerPl-mCnc 30.0 mg/dL Above high normal 10/29/19 2 4 6 - 20 [facility] Glucose SerPl-mCnc 200.0 mg/dL Above high normal 4 70 - 100 [facility] HCO3 SerPl-sCnc 32.0 mmol/L Above high normal 02 4 20 - 30 [facility] Anion Gap3 SerPl-sCnc 9.0 Normal 4 7 - 17 [facility] BUN/Creat SerPl 42.9 Above high normal 02 4 8 - 23 [facility] GFR/BSA.pred SerPlBld LNA-ZCR-EgBNos >60.0 mL/min/1.73m2 Normal 4 - [facility] Sodium SerPl-sCnc 141.0 mmol/L Normal 4 136 - 144 [facility] Potassium SerPl-sCnc 3.8 mmol/L Normal 02 4 3.3 - 5.3 [facility] Creat SerPl-mCnc 0.7 mg/dL Normal 4 0.4 - 1.3 [facility] Chloride SerPl-sCnc 100.0 mmol/L Normal 10/29/19 2 4 98 - 107 [facility] Magnesium SerPl-mCnc 2.0 mg/dL Normal 02 4 1.7 - 2.4 [facility] RBC Auto-mCnc 33.6 g/dL Normal 4 31 - 36 [facility] Lymphocytes/leuk NFr Bld Auto 13.5 % Below low normal 4 17 - 50 [facility] Hgb Bld-mCnc 10.8 g/dL Below low normal 4 13.2 - 17.1 [facility] nRBC # Bld Auto 0.0 x 1000/uL Normal 4 0 - 1 [facility] Monocytes # Bld Auto 1.04 x 1000/uL Above high normal 4 0 - 1 [facility] Eosinophil # Bld Auto 0.22 x 1000/uL Normal 06/ 4 0 - 1 [facility] nRBC/100 WBC Bld Auto-Rto 0.0 % Normal 4 0 - 1 [facility] Eosinophil/leuk NFr Bld Auto 2.3 % Normal 4 0 - 5 [facility] MCV RBC Auto 94.7 fL Normal 4 80 - 100 [facility] Imm Granulocytes/leuk NFr Bld Auto 1.2 % Above high normal 4 0 - 1 [facility] RDW RBC Auto-Rto 12.2 % Normal 4 11 - 15 [facility] Imm Granulocytes # Bld Auto 0.11 x 1000/uL Normal 4 0 - 0.3 [facility] Lymphocytes # Bld Auto 1.27 x 1000/uL Normal 4 0.6 - 3.7 [facility] Hct VFr Bld Auto 32.1 % Below low normal 02 4 38.5 - 50 [facility] PMV Bld Auto 11.5 fL Normal 4 8 - 12 [facility] RBC # Bld Auto 3.39 M/uL Below low normal 4 4 - 6 [facility] Neutrophils # Bld Auto 6.75 x 1000/uL Normal 4 2 - 7.6 [facility] Basophils/leuk NFr Bld Auto 0.4 % Normal 4 0 - 1.4 [facility] Monocytes/leuk NFr Bld Auto 11.0 % Normal 4 4 - 12 [facility] Platelet # Bld Auto 342.0 x1000/uL Normal 4 150 - 420 [facility] RBC Qn Auto 31.9 pg Normal 4 27 - 33 [facility] Basophils # Bld Auto 0.04 x 1000/uL Normal 10/28 4 0 - 1 [facility] WBC # Bld Auto 9.4 x1000/uL Normal 4 4 - 11 [facility] Neutrophils/leuk NFr Bld Auto 71.6 % Normal 4 39 - 72 [facility] Ammonia Plas-sCnc 50.0 umol/L Above high normal 10/27 4 11 - 35 [facility] SaO2 % BldA 96.0 % Normal 4 94 - 98 [facility] HCO3 std BldA-sCnc 33.4 mmol/L Above high normal 4 21 - 28 [facility] Base excess std BldA Calc-sCnc 9.0 mmol/L Above high normal 4 - [facility] pH BldA 7.45 units Normal 4 7.35 - 7.45 [facility] B[facility] SP02 (ARTERIAL BG [place] QUESTION) 97.0 % Normal 4 [facility] B[facility] OXYGEN MODE (ARTERIAL BG [place] QUESTION) Nasal Cannula Normal 4 [facility] pCO2 BldA 50.0 mmHg Above high normal 4 32 - 48 [facility] LITER FLOW (ARTERIAL BG [place] QUESTION) 3.0 L/min Normal 4 [facility] TEMPERATURE (ARTERIAL BG [place] QUESTION) 99.7 Fahrenheit Normal 4 [facility] pO2 BldA 90.0 mmHg Normal 4 83 - 108 [facility] Bilirub Direct SerPl-mCnc 0.3 mg/dL Normal 4 - [facility] Bilirub SerPl-mCnc 0.6 mg/dL Normal 4 - [facility] ALP SerPl-cCnc 101.0 U/L Normal 4 9 - 122 [facility] AST/ALT SerPl-cRto 0.9 Normal 4 - [facility] AST SerPl w P-5'-P-cCnc 68.0 U/L Above high normal 4 10 - 35 [facility] ALT SerPl w/o P-5'-P-cCnc 73.0 U/L Above high normal 4 9 - 59 [facility] CK SerPl-cCnc 389.0 U/L Above high normal 4 11 - 204 [facility] TSH SerPl DL<=0.005 mIU/L-aCnc 2.02 uIU/mL Normal 4 - [facility] Calcium SerPl-mCnc 9.5 mg/dL Normal 4 8.8 - 10.2 [facility] BUN/Creat SerPl 35.4 Above high normal 02 4 8 - 23 [facility] Anion Gap3 SerPl-sCnc 10.0 Normal 4 7 - 17 [facility] Chloride SerPl-sCnc 101.0 mmol/L Normal 10/28/19 2 4 98 - 107 [facility] HCO3 SerPl-sCnc 32.0 mmol/L Above high normal 02 4 20 - 30 [facility] Glucose SerPl-mCnc 196.0 mg/dL Above high normal 4 70 - 100 [facility] Creat SerPl-mCnc 0.65 mg/dL Normal 4 0.4 - 1.3 [facility] GFR/BSA.pred SerPlBld DHM-KMJ-ThIHms >60.0 mL/min/1.73m2 Normal 4 - [facility] BUN SerPl-mCnc 23.0 mg/dL Above high normal 10/28/19 2 4 6 - 20 [facility] Potassium SerPl-sCnc 3.6 mmol/L Normal 02 4 3.3 - 5.3 [facility] Sodium SerPl-sCnc 143.0 mmol/L Normal 4 136 - 144 [facility] ESTIMATED AVERAGE GLUCOSE 169.0 mg/dL Normal 4 [facility] Hgb A1c MFr Bld 7.5 % Above high normal 02 4 4 - 5.6 [facility] ANTIBODY SCREEN NEG Normal 10/28/19 2 4 [facility] RH TYPE POS Normal 4 [facility] ABO GROUPING O Normal 4 [facility] Magnesium SerPl-mCnc 1.7 mg/dL Normal 02 4 1.7 - 2.4 [facility] Creat SerPl-mCnc 0.68 mg/dL Normal 4 0.4 - 1.3 [facility] GFR/BSA.pred SerPlBld PTK-YPH-FkFDzh >60.0 mL/min/1.73m2 Normal 4 - [facility] HCO3 SerPl-sCnc 29.0 mmol/L Normal 4 20 - 30 [facility] BUN/Creat SerPl 26.5 Above high normal 02 4 8 - 23 [facility] Glucose SerPl-mCnc 221.0 mg/dL Above high normal 4 70 - 100 [facility] Sodium SerPl-sCnc 139.0 mmol/L Normal 4 136 - 144 [facility] Calcium SerPl-mCnc 9.5 mg/dL Normal 4 8.8 - 10.2 [facility] Potassium SerPl-sCnc 3.5 mmol/L Normal 02 4 3.3 - 5.3 [facility] Chloride SerPl-sCnc 96.0 mmol/L Below low normal 4 98 - 107 [facility] BUN SerPl-mCnc 18.0 mg/dL Normal 4 6 - 20 [facility] Anion Gap3 SerPl-sCnc 14.0 Normal 4 7 - 17 [facility] Phosphate SerPl-mCnc 3.1 mg/dL Normal 02 4 2.2 - 4.5 [facility] Lymphocytes/leuk NFr Bld Auto 17.6 % Normal 4 17 - 50 [facility] PMV Bld Auto 11.5 fL Normal 4 8 - 12 [facility] Neutrophils # Bld Auto 6.99 x 1000/uL Normal 4 2 - 7.6 [facility] Eosinophil # Bld Auto 0.21 x 1000/uL Normal 4 0 - 1 [facility] Eosinophil/leuk NFr Bld Auto 2.0 % Normal 4 0 - 5 [facility] RDW RBC Auto-Rto 12.1 % Normal 4 11 - 15 [facility] Platelet # Bld Auto 327.0 x1000/uL Normal 4 150 - 420 [facility] MCHC RBC Auto-mCnc 34.1 g/dL Normal 4 31 - 36 [facility] Monocytes # Bld Auto 1.32 x 1000/uL Above high normal 4 0 - 1 [facility] Imm Granulocytes/leuk NFr Bld Auto 1.2 % Above high normal 4 0 - 1 [facility] MCH RBC Qn Auto 31.4 pg Normal 4 27 - 33 [facility] Hct VFr Bld Auto 35.2 % Below low normal 02 4 38.5 - 50 [facility] Basophils # Bld Auto 0.05 x 1000/uL Normal 10/27 4 0 - 1 [facility] Hgb Bld-mCnc 12.0 g/dL Below low normal 4 13.2 - 17.1 [facility] MCV RBC Auto 92.1 fL Normal 4 80 - 100 [facility] WBC # Bld Auto 10.6 x1000/uL Normal 4 4 - 11 [facility] nRBC # Bld Auto 0.0 x 1000/uL Normal 4 0 - 1 [facility] Imm Granulocytes # Bld Auto 0.13 x 1000/uL Normal 4 0 - 0.3 [facility] Basophils/leuk NFr Bld Auto 0.5 % Normal 4 0 - 1.4 [facility] Monocytes/leuk NFr Bld Auto 12.5 % Above high normal 4 4 - 12 [facility] RBC # Bld Auto 3.82 M/uL Below low normal 4 4 - 6 [facility] nRBC/100 WBC Bld Auto-Rto 0.0 % Normal 4 0 - 1 [facility] Lymphocytes # Bld Auto 1.86 x 1000/uL Normal 4 0.6 - 3.7 [facility] Neutrophils/leuk NFr Bld Auto 66.2 % Normal 4 39 - 72 [facility] Phosphate SerPl-mCnc 3.7 mg/dL Normal 02 4 2.2 - 4.5 [facility] Chloride SerPl-sCnc 95.0 mmol/L Below low normal 4 98 - 107 [facility] Calcium SerPl-mCnc 9.2 mg/dL Normal 4 8.8 - 10.2 [facility] Creat SerPl-mCnc 0.51 mg/dL Normal 4 0.4 - 1.3 [facility] Glucose SerPl-mCnc 220.0 mg/dL Above high normal 4 70 - 100 [facility] GFR/BSA.pred SerPlBld CYO-ORP-LgHFjp >60.0 mL/min/1.73m2 Normal 4 - [facility] Potassium SerPl-sCnc 3.8 mmol/L Normal 02 4 3.3 - 5.3 [facility] HCO3 SerPl-sCnc 30.0 mmol/L Normal 4 20 - 30 [facility] BUN SerPl-mCnc 15.0 mg/dL Normal 4 6 - 20 [facility] BUN/Creat SerPl 29.4 Above high normal 02 4 8 - 23 [facility] Anion Gap3 SerPl-sCnc 12.0 Normal 4 7 - 17 [facility] Sodium SerPl-sCnc 137.0 mmol/L Normal 4 136 - 144 [facility] Magnesium SerPl-mCnc 1.7 mg/dL Normal 02 4 1.7 - 2.4 [facility] Magnesium SerPl-mCnc 1.7 mg/dL Normal 02 4 1.7 - 2.4 [facility] Sodium SerPl-sCnc 142.0 mmol/L Normal 4 136 - 144 [facility] Glucose SerPl-mCnc 177.0 mg/dL Above high normal 4 70 - 100 [facility] Calcium SerPl-mCnc 9.1 mg/dL Normal 4 8.8 - 10.2 [facility] Potassium SerPl-sCnc 3.8 mmol/L Normal 02 4 3.3 - 5.3 [facility] Chloride SerPl-sCnc 102.0 mmol/L Normal 10/27/19 2 4 98 - 107 [facility] Anion Gap3 SerPl-sCnc 11.0 Normal 4 7 - 17 [facility] HCO3 SerPl-sCnc 29.0 mmol/L Normal 4 20 - 30 [facility] Creat SerPl-mCnc 0.59 mg/dL Normal 4 0.4 - 1.3 [facility] GFR/BSA.pred SerPlBld KEW-NUT-PmUGra >60.0 mL/min/1.73m2 Normal 4 - [facility] BUN/Creat SerPl 27.1 Above high normal 02 4 8 - 23 [facility] BUN SerPl-mCnc 16.0 mg/dL Normal 4 6 - 20 [facility] Phosphate SerPl-mCnc 3.8 mg/dL Normal 02 4 2.2 - 4.5 [facility] Lymphocytes # Bld Auto 1.08 x 1000/uL Normal 4 0.6 - 3.7 [facility] Imm Granulocytes/leuk NFr Bld Auto 1.3 % Above high normal 4 0 - 1 [facility] Eosinophil # Bld Auto 0.16 x 1000/uL Normal 06 4 0 - 1 [facility] Platelet # Bld Auto 256.0 x1000/uL Normal 4 150 - 420 [facility] Hgb Bld-mCnc 10.1 g/dL Below low normal 4 13.2 - 17.1 [facility] Neutrophils # Bld Auto 4.32 x 1000/uL Normal 4 2 - 7.6 [facility] Basophils # Bld Auto 0.03 x 1000/uL Normal 10/26 4 0 - 1 [facility] Eosinophil/leuk NFr Bld Auto 2.5 % Normal 4 0 - 5 [facility] MCH RBC Qn Auto 31.3 pg Normal 4 27 - 33 [facility] nRBC/100 WBC Bld Auto-Rto 0.0 % Normal 4 0 - 1 [facility] Monocytes # Bld Auto 0.72 x 1000/uL Normal 10/26 4 0 - 1 [facility] Imm Granulocytes # Bld Auto 0.08 x 1000/uL Normal 4 0 - 0.3 [facility] Hct VFr Bld Auto 30.6 % Below low normal 02 4 38.5 - 50 [facility] MCV RBC Auto 94.7 fL Normal 4 80 - 100 [facility] Monocytes/leuk NFr Bld Auto 11.3 % Normal 4 4 - 12 [facility] Neutrophils/leuk NFr Bld Auto 67.5 % Normal 4 39 - 72 [facility] Basophils/leuk NFr Bld Auto 0.5 % Normal 4 0 - 1.4 [facility] Lymphocytes/leuk NFr Bld Auto 16.9 % Below low normal 4 17 - 50 [facility] PMV Bld Auto 11.5 fL Normal 4 8 - 12 [facility] nRBC # Bld Auto 0.0 x 1000/uL Normal 4 0 - 1 [facility] MCHC RBC Auto-mCnc 33.0 g/dL Normal 4 31 - 36 [facility] RDW RBC Auto-Rto 12.4 % Normal 4 11 - 15 [facility] WBC # Bld Auto 6.4 x1000/uL Normal 4 4 - 11 [facility] RBC # Bld Auto 3.23 M/uL Below low normal 4 4 - 6 [facility] Path Interp Bld-Imp The low molecular weight heparin level is BELOW therapeutic range for both q12 \T\ q24 dosing. Normal 4 [facility] UFH PPP Senior Technical Editor-aCnc 0.22 u/mL Normal 4 - [facility] Lipase SerPl-cCnc 92.0 U/L Above high normal 10/25 4 11 - 55 [facility] Trigl SerPl-mCnc 260.0 mg/dL Above high normal 4 - [facility] Calcium SerPl-mCnc 8.8 mg/dL Normal 4 8.8 - 10.2 [facility] Glucose SerPl-mCnc 182.0 mg/dL Above high normal 09/27 4 70 - 100 [facility] Chloride SerPl-sCnc 110.0 mmol/L Above high normal 4 98 - 107 [facility] Potassium SerPl-sCnc 3.6 mmol/L Normal 02 4 3.3 - 5.3 [facility] BUN/Creat SerPl 31.7 Above high normal 02 4 8 - 23 [facility] Sodium SerPl-sCnc 147.0 mmol/L Above high normal 10/25 4 136 - 144 [facility] Anion Gap3 SerPl-sCnc 11.0 Normal 4 7 - 17 [facility] Creat SerPl-mCnc 0.6 mg/dL Normal 4 0.4 - 1.3 [facility] BUN SerPl-mCnc 19.0 mg/dL Normal 4 6 - 20 [facility] HCO3 SerPl-sCnc 26.0 mmol/L Normal 4 20 - 30 [facility] GFR/BSA.pred SerPlBld [id number] >60.0 mL/min/1.73m2 Normal 4 - [facility] Phosphate SerPl-mCnc 3.0 mg/dL Normal 02 4 2.2 - 4.5 [facility] Magnesium SerPl-mCnc 1.9 mg/dL Normal 02 4 1.7 - 2.4 [facility] RDW RBC Auto-Rto 12.8 % Normal 4 11 - 15 [facility] Monocytes/leuk NFr Bld Auto 9.8 % Normal 4 4 - 12 [facility] nRBC # Bld Auto 0.0 x 1000/uL Normal 4 0 - 1 [facility] Imm Granulocytes/leuk NFr Bld Auto 0.5 % Normal 4 0 - 1 [facility] MCH RBC Qn Auto 32.2 pg Normal 4 27 - 33 [facility] Lymphocytes # Bld Auto 0.92 x 1000/uL Normal 4 0.6 - 3.7 [facility] Basophils/leuk NFr Bld Auto 0.5 % Normal 4 0 - 1.4 [facility] PMV Bld Auto 11.8 fL Normal 4 8 - 12 [facility] Eosinophil/leuk NFr Bld Auto 2.1 % Normal 4 0 - 5 [facility] MCHC RBC Auto-mCnc 33.0 g/dL Normal 4 31 - 36 [facility] Platelet # Bld Auto 252.0 x1000/uL Normal 4 150 - 420 [facility] Eosinophil # Bld Auto 0.12 x 1000/uL Normal 09/27 4 0 - 1 [facility] WBC # Bld Auto 5.6 x1000/uL Normal 4 4 - 11 [facility] Hct VFr Bld Auto 29.7 % Below low normal 02 4 38.5 - 50 [facility] Monocytes # Bld Auto 0.55 x 1000/uL Normal 10/25 4 0 - 1 [facility] Basophils # Bld Auto 0.03 x 1000/uL Normal 10/25 4 0 - 1 [facility] Lymphocytes/leuk NFr Bld Auto 16.3 % Below low normal 4 17 - 50 [facility] Imm Granulocytes # Bld Auto 0.03 x 1000/uL Normal 4 0 - 0.3 [facility] Neutrophils/leuk NFr Bld Auto 70.8 % Normal 4 39 - 72 [facility] RBC # Bld Auto 3.04 M/uL Below low normal 4 4 - 6 [facility] Neutrophils # Bld Auto 3.98 x 1000/uL Normal 4 2 - 7.6 [facility] MCV RBC Auto 97.7 fL Normal 4 80 - 100 [facility] Hgb Bld-mCnc 9.8 g/dL Below low normal 4 13.2 - 17.1 [facility] nRBC/100 WBC Bld Auto-Rto 0.0 % Normal 4 0 - 1 [facility] SaO2 % BldA 98.0 % Normal 4 94 - 98 [facility] pH BldA 7.41 units Normal 4 7.35 - 7.45 [facility] Base excess std BldA Calc-sCnc 3.0 mmol/L Normal 4 - [facility] HCO3 std BldA-sCnc 27.5 mmol/L Normal 4 21 - 28 [facility] pCO2 BldA 45.0 mmHg Normal 4 32 - 48 [facility] pO2 BldA 133.0 mmHg Above high normal 4 83 - 108 [facility] BKR TEMPERATURE (ARTERIAL BG DOMINGO QUESTION) 100.2 Fahrenheit Normal 4 [facility] ABO GROUPING O Normal 4 [facility] ANTIBODY SCREEN NEG Normal 10/25/19 2 4 [facility] RH TYPE POS Normal 4 [facility] Magnesium SerPl-mCnc 2.0 mg/dL Normal 02 4 1.7 - 2.4 [facility] Phosphate SerPl-mCnc 2.2 mg/dL Normal 02 4 2.2 - 4.5 [facility] Anion Gap3 SerPl-sCnc 9.0 Normal 4 7 - 17 [facility] HCO3 SerPl-sCnc 26.0 mmol/L Normal 4 20 - 30 [facility] Calcium SerPl-mCnc 8.5 mg/dL Below low normal 10/24 4 8.8 - 10.2 [facility] Creat SerPl-mCnc 0.71 mg/dL Normal 4 0.4 - 1.3 [facility] BUN SerPl-mCnc 19.0 mg/dL Normal 4 6 - 20 [facility] Glucose SerPl-mCnc 162.0 mg/dL Above high normal 09/27 4 70 - 100 [facility] BUN/Creat SerPl 26.8 Above high normal 02 4 8 - 23 [facility] Potassium SerPl-sCnc 3.5 mmol/L Normal 02 4 3.3 - 5.3 [facility] Chloride SerPl-sCnc 113.0 mmol/L Above high normal 4 98 - 107 [facility] Sodium SerPl-sCnc 148.0 mmol/L Above high normal 10/24 4 136 - 144 [facility] GFR/BSA.pred SerPlBld [id number] >60.0 mL/min/1.73m2 Normal 4 - [facility] Imm Granulocytes # Bld Auto 0.03 x 1000/uL Normal 4 0 - 0.3 [facility] RBC # Bld Auto 3.04 M/uL Below low normal 4 4 - 6 [facility] Neutrophils # Bld Auto 4.89 x 1000/uL Normal 4 2 - 7.6 [facility] Neutrophils/leuk NFr Bld Auto 70.1 % Normal 4 39 - 72 [facility] Hct VFr Bld Auto 29.7 % Below low normal 02 4 38.5 - 50 [facility] Eosinophil/leuk NFr Bld Auto 0.6 % Normal 4 0 - 5 [facility] nRBC/100 WBC Bld Auto-Rto 0.0 % Normal 4 0 - 1 [facility] Basophils # Bld Auto 0.03 x 1000/uL Normal 10/24 4 0 - 1 [facility] MCHC RBC Auto-mCnc 33.0 g/dL Normal 4 31 - 36 [facility] WBC # Bld Auto 7.0 x1000/uL Normal 4 4 - 11 [facility] Imm Granulocytes/leuk NFr Bld Auto 0.4 % Normal 4 0 - 1 [facility] Monocytes # Bld Auto 0.76 x 1000/uL Normal 10/24 4 0 - 1 [facility] Platelet # Bld Auto 221.0 x1000/uL Normal 4 150 - 420 [facility] Basophils/leuk NFr Bld Auto 0.4 % Normal 4 0 - 1.4 [facility] Hgb Bld-mCnc 9.8 g/dL Below low normal 4 13.2 - 17.1 [facility] Lymphocytes # Bld Auto 1.23 x 1000/uL Normal 4 0.6 - 3.7 [facility] PMV Bld Auto 11.6 fL Normal 4 8 - 12 [facility] MCV RBC Auto 97.7 fL Normal 4 80 - 100 [facility] Eosinophil # Bld Auto 0.04 x 1000/uL Normal 09/27 4 0 - 1 [facility] Monocytes/leuk NFr Bld Auto 10.9 % Normal 4 4 - 12 [facility] Lymphocytes/leuk NFr Bld Auto 17.6 % Normal 4 17 - 50 [facility] nRBC # Bld Auto 0.0 x 1000/uL Normal 4 0 - 1 [facility] MCH RBC Qn Auto 32.2 pg Normal 4 27 - 33 [facility] RDW RBC Auto-Rto 12.9 % Normal 4 11 - 15 [facility] Path Interp Bld-Imp The unfractionated heparin level is BELOW therapeutic range. Normal 4 [facility] UFH PPP Senior Technical Editor-aCnc 0.12 u/mL Normal 4 - [facility] Magnesium SerPl-mCnc 2.1 mg/dL Normal 02 4 1.7 - 2.4 [facility] Lipase SerPl-cCnc 45.0 U/L Normal 4 11 - 55 [facility] BUN SerPl-mCnc 16.0 mg/dL Normal 4 6 - 20 [facility] HCO3 SerPl-sCnc 21.0 mmol/L Normal 4 20 - 30 [facility] BUN/Creat SerPl 22.9 Normal 4 8 - 23 [facility] Potassium SerPl-sCnc 3.6 mmol/L Normal 02 4 3.3 - 5.3 [facility] Glucose SerPl-mCnc 151.0 mg/dL Above high normal 09/26 4 70 - 100 [facility] Calcium SerPl-mCnc 8.3 mg/dL Below low normal 10/23 4 8.8 - 10.2 [facility] Sodium SerPl-sCnc 145.0 mmol/L Above high normal 10/23 4 136 - 144 [facility] Anion Gap3 SerPl-sCnc 13.0 Normal 4 7 - 17 [facility] GFR/BSA.pred SerPlBld XHN-OKN-[id number] >60.0 mL/min/1.73m2 Normal 4 - [facility] Creat SerPl-mCnc 0.7 mg/dL Normal 4 0.4 - 1.3 [facility] Chloride SerPl-sCnc 111.0 mmol/L Above high normal 4 98 - 107 [facility] Phosphate SerPl-mCnc 1.7 mg/dL Below low normal 4 2.2 - 4.5 [facility] Monocytes/leuk NFr Bld Auto 8.5 % Normal 4 4 - 12 [facility] Lymphocytes # Bld Auto 1.27 x 1000/uL Normal 4 0.6 - 3.7 [facility] RBC # Bld Auto 3.24 M/uL Below low normal 4 4 - 6 [facility] PMV Bld Auto 11.8 fL Normal 4 8 - 12 [facility] MCH RBC Qn Auto 31.2 pg Normal 4 27 - 33 [facility] Imm Granulocytes # Bld Auto 0.03 x 1000/uL Normal 4 0 - 0.3 [facility] nRBC # Bld Auto 0.0 x 1000/uL Normal 4 0 - 1 [facility] Neutrophils # Bld Auto 6.89 x 1000/uL Normal 4 2 - 7.6 [facility] Platelet # Bld Auto 202.0 x1000/uL Normal 4 150 - 420 [facility] Eosinophil # Bld Auto 0.0 x 1000/uL Normal 10/23 4 0 - 1 [facility] Eosinophil/leuk NFr Bld Auto 0.0 % Normal 4 0 - 5 [facility] Basophils/leuk NFr Bld Auto 0.2 % Normal 4 0 - 1.4 [facility] Lymphocytes/leuk NFr Bld Auto 14.2 % Below low normal 4 17 - 50 [facility] Monocytes # Bld Auto 0.76 x 1000/uL Normal 10/23 4 0 - 1 [facility] MCV RBC Auto 96.9 fL Normal 4 80 - 100 [facility] nRBC/100 WBC Bld Auto-Rto 0.0 % Normal 4 0 - 1 [facility] MCHC RBC Auto-mCnc 32.2 g/dL Normal 4 31 - 36 [facility] RDW RBC Auto-Rto 12.9 % Normal 4 11 - 15 [facility] WBC # Bld Auto 9.0 x1000/uL Normal 4 4 - 11 [facility] Hct VFr Bld Auto 31.4 % Below low normal 02 4 38.5 - 50 [facility] Hgb Bld-mCnc 10.1 g/dL Below low normal 4 13.2 - 17.1 [facility] Neutrophils/leuk NFr Bld Auto 76.8 % Above high normal 4 39 - 72 [facility] Imm Granulocytes/leuk NFr Bld Auto 0.3 % Normal 4 0 - 1 [facility] Basophils # Bld Auto 0.02 x 1000/uL Normal 10/23 4 0 - 1 [facility] RH TYPE POS Normal 4 [facility] ANTIBODY SCREEN NEG Normal 10/23/19 2 4 [facility] ABO GROUPING O Normal 4 [facility] Troponin T SerPl HS-mCnc 142.0 ng/L Critically high 4 - [facility] VENT MODE (ARTERIAL BG DOMINGO QUESTION) AC/VC Normal 4 [facility] ACTUAL RESPIRATORY RATE (ARTERIAL BG DOMINGO QUESTION) 16.0 breaths/min Normal 4 [facility] TEMPERATURE (ARTERIAL BG DOMINGO QUESTION) 100.4 Fahrenheit Normal 4 [facility] SP02 (ARTERIAL BG DOMINGO QUESTION) 99.0 % Normal 4 [facility] pO2 BldA 125.0 mmHg Above high normal 4 83 - 108 [facility] FIO2 (ARTERIAL BG DOMINGO QUESTION) 50.0 % Normal 4 [facility] ALLENS TEST PERFORMED (ARTERIAL BG DOMINGO QUESTION) Yes Normal 4 [facility] pCO2 BldA 39.0 mmHg Normal 4 32 - 48 [facility] pH BldA 7.39 units Normal 4 7.35 - 7.45 [facility] END TIDAL CO2/TCOM (ARTERIAL BG DOMINGO QUESTION) 33.0 mmol/L Normal 4 [facility] HCO3 std BldA-sCnc 22.6 mmol/L Normal 4 21 - 28 [facility] Base excess std BldA Calc-sCnc -1.0 mmol/L Normal 4 - [facility] SaO2 % BldA 99.0 % Above high normal 4 94 - 98 [facility] OXYGEN MODE (ARTERIAL BG DOMINGO QUESTION) Ventilator Normal 4 [facility] Troponin T SerPl HS-mCnc 148.0 ng/L Normal 4 [facility] Troponin T SerPl HS-mCnc 114.0 ng/L Normal 4 [facility] BACTERIA, UA (MANUAL) Few Abnormal 4 - [facility] RBC #/area UrnS HPF >30 Abnormal 10/23/19 2 4 0 - 2 [facility] HYALINE CASTS, UA (MANUAL) 1-3 Normal 4 0 - 3 [facility] Trans Cells #/area UrnS HPF Rare Abnormal 4 - [facility] WBC #/area UrnS Auto Normal 02 4 [facility] WBC/HPF 20-30 Abnormal 4 0 - 5 [facility] URINE SQUAMOUS EPITHELIAL CELLS, UA (MANUAL) Rare Normal 4 - [facility] Manual differential performed Bld Ql Performed Normal 4 [facility] RBC #/area UrnS Auto Normal 02 4 [facility] pH Ur Strip.auto 6.0 Normal 4 5.5 - 7.5 [facility] Hgb Ur Ql Strip.auto 3+ Abnormal 02 4 - [facility] Ketones Ur Strip.auto-mCnc 4+ Abnormal 4 - [facility] WBC # Ur Strip Negative Normal 4 - [facility] Color Ur Auto Yellow Normal 4 - [facility] Sp Gr Ur Refract.auto 1.037 Above high normal 0 4 1.005 - 1.03 [facility] Glucose Ur Strip.auto-mCnc Trace Abnormal 4 - [facility] Nitrite Ur Ql Strip.auto Negative Normal 4 - [facility] Bilirub Ur Ql Strip.auto Negative Normal 4 - [facility] Prot Ur Strip.auto-mCnc 2+ Abnormal 4 - [facility] Clarity Ur Refract.auto Cloudy Abnormal 4 - [facility] Urobilinogen Ur Strip-mCnc 4.0 mg/dL Above high normal 4 - [facility] Troponin T SerPl HS-mCnc 37.0 ng/L Above high normal 4 - [facility] Lactate SerPl-sCnc 1.3 mmol/L Normal 4 0.5 - 2.2 [facility] TEMPERATURE (ARTERIAL BG DOMINGO QUESTION) 100.9 Fahrenheit Normal 4 [facility] HCO3 std BldA-sCnc 20.7 mmol/L Below low normal 10/22 4 21 - 28 [facility] Base excess std BldA Calc-sCnc -6.0 mmol/L Below low normal 4 - [facility] pH BldA 7.26 units Below low normal 4 7.35 - 7.45 [facility] OXYGEN MODE (ARTERIAL BG DOMINGO QUESTION) Ventilator Normal 4 [facility] pCO2 BldA 49.0 mmHg Above high normal 4 32 - 48 [facility] SaO2 % BldA 96.0 % Normal 4 94 - 98 [facility] pO2 BldA 105.0 mmHg Normal 4 83 - 108 [facility] FIO2 (ARTERIAL BG DOMINGO QUESTION) 100.0 % Normal 4 [facility] Trigl SerPl-mCnc 154.0 mg/dL Above high normal 4 - [facility] Magnesium SerPl-mCnc 1.8 mg/dL Normal 02 4 1.7 - 2.4 [facility] Phosphate SerPl-mCnc 3.1 mg/dL Normal 02 4 2.2 - 4.5 [facility] HCO3 SerPl-sCnc 21.0 mmol/L Normal 4 20 - 30 [facility] Glucose SerPl-mCnc 163.0 mg/dL Above high normal 09/26 4 70 - 100 [facility] Creat SerPl-mCnc 0.7 mg/dL Normal 4 0.4 - 1.3 [facility] BUN/Creat SerPl 22.9 Normal 4 8 - 23 [facility] Calcium SerPl-mCnc 8.5 mg/dL Below low normal 10/22 4 8.8 - 10.2 [facility] Sodium SerPl-sCnc 145.0 mmol/L Above high normal 10/22 4 136 - 144 [facility] BUN SerPl-mCnc 16.0 mg/dL Normal 4 6 - 20 [facility] Chloride SerPl-sCnc 110.0 mmol/L Above high normal 4 98 - 107 [facility] Potassium SerPl-sCnc 3.6 mmol/L Normal 02 4 3.3 - 5.3 [facility] Anion Gap3 SerPl-sCnc 14.0 Normal 4 7 - 17 [facility] GFR/BSA.pred SerPlBld UNI-[id number]-[id number] >60.0 mL/min/1.73m2 Normal 4 - [facility] Monocytes/leuk NFr Bld Auto 6.3 % Normal 4 4 - 12 [facility] Lymphocytes/leuk NFr Bld Auto 5.2 % Below low normal 4 17 - 50 [facility] WBC # Bld Auto 9.0 x1000/uL Normal 4 4 - 11 [facility] RBC # Bld Auto 3.64 M/uL Below low normal 4 4 - 6 [facility] Neutrophils # Bld Auto 7.86 x 1000/uL Above high normal 4 2 - 7.6 [facility] Monocytes # Bld Auto 0.57 x 1000/uL Normal 10/22 4 0 - 1 [facility] Platelet # Bld Auto 213.0 x1000/uL Normal 4 150 - 420 [facility] Eosinophil # Bld Auto 0.06 x 1000/uL Normal 09/26 4 0 - 1 [facility] Imm Granulocytes/leuk NFr Bld Auto 0.8 % Normal 4 0 - 1 [facility] Hgb Bld-mCnc 11.6 g/dL Below low normal 4 13.2 - 17.1 [facility] PMV Bld Auto 11.8 fL Normal 4 8 - 12 [facility] RDW RBC Auto-Rto 12.5 % Normal 4 11 - 15 [facility] Basophils/leuk NFr Bld Auto 0.1 % Normal 4 0 - 1.4 [facility] Lymphocytes # Bld Auto 0.47 x 1000/uL Below low normal 4 0.6 - 3.7 [facility] Hct VFr Bld Auto 34.1 % Below low normal 02 4 38.5 - 50 [facility] MCV RBC Auto 93.7 fL Normal 4 80 - 100 [facility] nRBC/100 WBC Bld Auto-Rto 0.0 % Normal 4 0 - 1 [facility] Neutrophils/leuk NFr Bld Auto 86.9 % Above high normal 4 39 - 72 [facility] Imm Granulocytes # Bld Auto 0.07 x 1000/uL Normal 4 0 - 0.3 [facility] Eosinophil/leuk NFr Bld Auto 0.7 % Normal 4 0 - 5 [facility] Basophils # Bld Auto 0.01 x 1000/uL Normal 10/22 4 0 - 1 [facility] MCHC RBC Auto-mCnc 34.0 g/dL Normal 4 31 - 36 [facility] MCH RBC Qn Auto 31.9 pg Normal 4 27 - 33 [facility] nRBC # Bld Auto 0.0 x 1000/uL Normal 4 0 - 1 [facility] BASE EXCESS, VENOUS -3.0 mmol/L Normal 4 - [facility] FIO2 (VENOUS BG DOMINGO QUESTION) 100.0 % Normal 4 [facility] HCO3 std BldV-sCnc 23.4 mmol/L Normal 4 - [facility] pH BldV 7.25 units Critically low 4 7.32 - 7.43 [facility] ACTUAL RESPIRATORY RATE (VENOUS BG DOMINGO QUESTION) 16.0 breaths/min Normal 4 [facility] SP02 (VENOUS BG DOMINGO QUESTION) 96.0 % Normal 4 [facility] TEMPERATURE (VENOUS BG DOMINGO QUESTION) 101.3 Fahrenheit Normal 4 [facility] pCO2 BldV 57.0 mmHg Above high normal 4 38 - 54 [facility] O2 SATURATION VENOUS 83.0 % Normal 4 - [facility] OXYGEN MODE (VENOUS BG DOMINGO QUESTION) Ventilator Normal 4 [facility] END TIDAL CO2/TCOM (VENOUS BG DOMINGO QUESTION) 42.0 mmol/L Normal 4 [facility] WBC #/area UrnS HPF 62.0 mmHg Above high normal 4 40 - 50 [facility] PHENobarb SerPl-mCnc 14.5 ug/mL Normal 02 4 10 - 40 [facility] ALP SerPl-cCnc 62.0 U/L Normal 4 9 - 122 [facility] AST SerPl w P-5'-P-cCnc 53.0 U/L Above high normal 4 10 - 35 [facility] Bilirub SerPl-mCnc 0.9 mg/dL Normal 4 - [facility] AST/ALT SerPl-cRto 1.0 Normal 4 - [facility] Bilirub Direct SerPl-mCnc 0.2 mg/dL Normal 4 - [facility] ALT SerPl w/o P-5'-P-cCnc 55.0 U/L Normal 4 9 - 59 [facility] Glucose SerPl-mCnc 160.0 mg/dL Above high normal 09/26 4 70 - 100 [facility] BUN SerPl-mCnc 14.0 mg/dL Normal 4 6 - 20 [facility] Creat SerPl-mCnc 0.78 mg/dL Normal 4 0.4 - 1.3 [facility] GFR/BSA.pred SerPlBld ZZZ-ZJZ-FeXQou >60.0 mL/min/1.73m2 Normal 4 - [facility] Sodium SerPl-sCnc 142.0 mmol/L Normal 4 136 - 144 [facility] BUN/Creat SerPl 17.9 Normal 4 8 - 23 [facility] Chloride SerPl-sCnc 107.0 mmol/L Normal 10/22/19 2 4 98 - 107 [facility] Anion Gap3 SerPl-sCnc 12.0 Normal 4 7 - 17 [facility] Potassium SerPl-sCnc 3.6 mmol/L Normal 02 4 3.3 - 5.3 [facility] HCO3 SerPl-sCnc 23.0 mmol/L Normal 4 20 - 30 [facility] Calcium SerPl-mCnc 8.7 mg/dL Below low normal 10/21 4 8.8 - 10.2 [facility] Phosphate SerPl-mCnc 2.6 mg/dL Normal 02 4 2.2 - 4.5 [facility] Magnesium SerPl-mCnc 1.7 mg/dL Normal 02 4 1.7 - 2.4 [facility] Albumin SerPl BCG-mCnc 3.7 g/dL Normal 4 3.6 - 5.1 [facility] Prealb SerPl Neph-mCnc 22.5 mg/dL Normal 4 20 - 40 [facility] Imm Granulocytes # Bld Auto 0.06 x 1000/uL Normal 4 0 - 0.3 [facility] Monocytes/leuk NFr Bld Auto 9.3 % Normal 4 4 - 12 [facility] Neutrophils # Bld Auto 9.68 x 1000/uL Above high normal 4 2 - 7.6 [facility] Lymphocytes # Bld Auto 1.7 x 1000/uL Normal 4 0.6 - 3.7 [facility] RBC # Bld Auto 3.74 M/uL Below low normal 4 4 - 6 [facility] nRBC/100 WBC Bld Auto-Rto 0.0 % Normal 4 0 - 1 [facility] Platelet # Bld Auto 258.0 x1000/uL Normal 4 150 - 420 [facility] RDW RBC Auto-Rto 12.5 % Normal 4 11 - 15 [facility] nRBC # Bld Auto 0.0 x 1000/uL Normal 4 0 - 1 [facility] Hgb Bld-mCnc 12.0 g/dL Below low normal 4 13.2 - 17.1 [facility] PMV Bld Auto 11.7 fL Normal 4 8 - 12 [facility] Hct VFr Bld Auto 33.9 %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
--- OUTSIDE RECORDS SUMMARY | 2024-12-24 13:12 | XMS_ITS | Clinical Summary ---
Author Organization [facility] Address [address] [place] [id number] Phone Care Team Providers Care Stull Hewer Name Role Phone Bruno Melo Primary Care Provider + Allergies Active Allergy Reactions Criticality Noted Date Comments Acetaminophen 11/04/2017 Tramadol 11/04/2017 Rofecoxib 11/04/2017 Medications mirtazapine (REMERON) 30 MG tablet Take 30 mg by mouth nightly. Active erythromycin (ROMYCIN) ophthalmic ointment Place 0.5 inches into the left eye every 6 (six) hours. 3.5 g 11/04/2017 Active Social History Tobacco Use Types Packs/Day Years Used Date Smoking Tobacco: Former Alcohol Use Standard Drinks/Week Comments No 0 (1 standard drink = 0.6 oz pur e alcohol) Education Answer Date Recorded Are you interested in more education? Not on gómez e 03/19/2024 Are you concerned about learning? Not on file 03/19/2024 No 03/19/2024 No 03/19/2024 Digital Access Answer Date Recorded No 03/19/2024 No 03/19/2024 Reliable internet access at home? Not on file 03/19/2024 Device with a working camera? Not on file Sex and Gender Information Value Date Recorded Sex Assigned at Male 11/04/2017 12:25 PM EDT Legal Sex Male 8:33 PM EDT Gender Identity Male 11/04/2017 12:25 PM EDT Sexual Orientation Straight 11/04/2017 12 :25 PM EDT Last Filed Vital Signs Vital Sign Reading Time Taken Comments Blood Pressure 119/90 11/04/2017 12:20 PM EDT Pulse 53 11/04/2017 12:20 PM EDT Temperature 36.4 C (97.6 F) 11/04/2017 12:20 PM EDT Respiratory Rate 16 11/04/2017 12:20 PM EDT Oxygen Saturation 100% 11/04/2017 12:20 PM EDT Inhaled Oxygen Concentration - - Weight 98.4 kg (217 lb) 11/04/2017 12:20 PM EDT Height 177.8 cm (5' 10 ) 11/04/2017 12:20 PM EDT Body Mass Index 31.14 11/04/2017 12:20 PM EDT Plan of Treatment Health Maintenance Due Date Last Done Comments LIPID PANEL 1969 DEPRESSION SCREENING 1981 SMOKING Hx and SMOKELESS TOBACCO SCREENING 1982 HEPATITIS C SCREENING 1987 HIV ONE-TIME SCREENING (18-6 5 YEARS) 1987 COLOGUARD 2014 COLONOSCOPY 2014 COLORECTAL CANCER SCREENING 2014 FIT TEST 2014 FOBT 2014 SIGMOIDOSCOPY 2014 VIRTUAL COLONOSCOPY 2014 PNEUMOCOCCAL VACCINES (50+ years) (1 of 1 - PCV) 2019 ZOSTER VACCINES (1 of 2) 2019 COVID-19 VACCINE (1 - 2023-2 5 season) 2024 Adult Td,Tdap Booster 12/27/2027 12/26/2017 , 04/04/2012 HEPATITIS A VACCINES Aged Out No long er eligible based on patient's age to complete this topic HIB VACCINES Aged Out No longer eligi ble based on patient's age to complete this topic MENINGOCOCCAL VACCINES (ACWY) Aged Out No longer eligible based on patient's age to complete this topic MENINGOCOCCAL VACCINES (B) Aged Out N o longer eligible based on patient's age to complete this topic Medical Devices Not on file Insurance [facility] ACO [facility] [place] [address] [place] [address] [facility] ACO [facility] ACO Care Teams Stull Hewer Relationship Specialty Start Date End Date Bruno Melo PA [facility] [place] [address] PCP - General Physician Newspaper Distributor Supervisor 03/19/24 Additional Source Comments The information contained in this document represents components of the legal health record. It is not the complete legal health record.[facility]
== END 2024-12-24 15:44 | disposition home or self-care (01) ==
LOC: HO.HMCH 12:37
PROVIDERS: PCP Physician Assistant; Visit Provider Physician Assistant
DX: M25.561 Pain in right knee (principal); E11.65 Type 2 diabetes mellitus with hyperglycemia; G89.29 Other chronic pain; S06.9X5D Unspecified intracranial injury with loss of consciousness greater than 24 hours with return to pre-existing conscious level, subsequent encounter; I10 Essential (primary) hypertension; E78.00 Pure hypercholesterolemia, unspecified

== ENCOUNTER → 2025-04-06 14:39 | Outpatient (REF) | payer OTHER, SELFPAY ==
--- OUTSIDE RECORDS SUMMARY | 2025-04-06 16:59 | XMS_ITS | Encounter Summary ---
Author Organization [facility] Address [address] [place] [address] Care Team Providers Care Workers Compensation Attorney Name Role Phone Bruno Melo Primary Care Provider + Encounter Details Date Type Department Care Team (Late st Contact Info) Description 10/31/2023 Scanned Document [facility] Specimens [address] [place] [address] Juan Whelan PA [address] [place] [address] Social History Tobacco Use Types Packs/Day Years Used Date Smoking Tobacco: Never Assessed [facility] Utilities Answer Date Recorded In the [...] documented as of this encounter Care Teams Workers Compensation Attorney Relationship Specialty Start Date End Date Bruno Melo PA [address] [place] [address] [place] [address] PCP - General 11/22/23 documented as of this encounter
--- OUTSIDE RECORDS SUMMARY | 2025-04-06 16:59 | XMS_ITS | Clinical Summary ---
Author Organization [facility] Address [address] [place] [address] Phone Care Team Providers Care Food Sales Clerk Name Role Phone Bruno Melo Primary Care [...] 2019 ZOSTER VACCINES (1 of 2) 2019 INFLUENZA VACCINE (#1) 2024 COVID-19 VACCINE (1 - 2024-2 6 season) 2025 Adult Td,Tdap Booster 12/27/2027 12/26/2017 , 04/04/2012 RSV VACCINE (1 - 1-dose 75+ series) 01/03/2044 HEPATITIS A VACCINES Aged Out No long [...] topic Medical Devices Not on file Insurance [facility] [place] [address] [place] [id number] [place] [address] [place] [address] ACO [facility] ACO [facility] [place] [address] [place] [address] ACO [place] [facility] A[facility] [place], [place] Care Teams Food Sales Clerk Relationship Specialty Start Date End Date Bruno Melo PA [address] [place] [address] PCP - General Physician Basketball Assembler 03/19/24 Additional Source Comments The information contained in this document represents components of the legal health record. It is not the complete legal health record.[facility]
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
== END ==
LOC: HO.SL 14:39
PROVIDERS: PCP Physician Assistant; Visit Provider Psychiatry & Neurology Neurology
DX: R06.83 Snoring (principal); G47.10 Hypersomnia, unspecified
CPT/HCPCS: 95806

== ENCOUNTER → 2025-04-06 14:50 | Outpatient (BNV) | payer OTHER, SELFPAY | PROVIDERS: PCP Physician Assistant; Visit Provider Psychiatry & Neurology Neurology | DX: R06.83 Snoring (principal); G47.10 Hypersomnia, unspecified | CPT/HCPCS: 95806 ==